=== PATIENT | female | born 1955 | race Hispanic/Latino ===

== ENCOUNTER 2018-07-27 12:43 | Inpatient (IN) | payer BC ==
[2018-07-27 12:51] VITALS: BMI 21.7
--- NOTE | 2018-07-27 12:59 | C.PDOC ---
History Of Present Illness 62 y/o female brought to ED by EMS for ECG changes at PMD office. Patient was at PMD office for routine vitamin B12 shot and was noted to be tachycardic prompting ECG to be done and showed wide complex tachycardia. Patient received P rocainamine en route and was given full dose of aspirin at PMD office. At ED patient denies chest pain, palpitations, sob, dizziness or any other complaints at this time. Chief Complaint (Nursing): Chest Pain History Per: Patient, EMS History/Exam Limitations: no limitations Onset/Duration Of Symptoms: Hrs Current Symptoms Are (Timing): Still Present Past Medical History Reviewed: Historical Data, Nursing Documentation, Vital Signs - Medical History PMH: Anemia Surgical History: No Surg Hx Family History: States: No Known Family Hx - Social History Hx Alcohol Use: Yes Hx Substance Use: No Review Of Systems Except As Marked, All Systems Reviewed And Found Negative. Cardiovascular: Negative for: Chest Pain, Palpitations Respiratory: Negative for: Cough, Shortness of Breath Physical Exam - Physical Exam Additional Physical Exam Comments: Constitutional: No acute distress. Head: Normocephalic. Atraumatic. Eyes: PERRL. ENT: Moist mucous membranes. Neck: Supple. Cardiovascular: Radial pulse 2+ bilaterally. Tachycardic Chest: No tenderness. Respiratory: Clear to auscultation bilaterally. GI: Soft. Nontender. Nondistended. Back: No CVA tenderness. Musculoskeletal: No tenderness or swelling of extremities. Skin: No rash. Neurologic: Alert, no focal deficit. ED Course And Treatment - Laboratory Results Result Diagrams: 07/27/18 13:01 07/27/18 13:01 ECG: Interpreted By Me, Viewed By Me ECG Rhythm: Atrial Fibrillation Interpretation Of ECG: Rapid ventricular rate, LBBB, No concordance st elevations. O2 Sat by Pulse Oximetry: 100 (RA) Critical Care Time - Critical Care Note Total Time (in mins): 45 Comments: Patient required my immediate attention for critical condition, frequent reassessments, and multiple specialist consultations. Documented critical care: time excludes all time spent performing seperately billable procedures. Medical Decision Making Medical Decision Making: Plan: Blood work, CXR, IV fluids, Cardizem ordered. Progress: At bedside patient noted to have 160 heart rate on monitor, 20mg of Cardizem IVP administered with response to 120s Consulted cardiology Dr. Sultana who recommends amiodarone bolus and drip and heparin bolus and drip. ICU Dr. Lisa accepts patient to unit. Dr. Wheeler accepts patient to his service. At time of admission, HR 130. Patient continues to be symptom free. CXR IMPRESSION: No active disease. Disposition - Disposition Disposition: HOSPITALIZED Disposition Time: 14:18 Condition: CRITICAL Forms: [facility] (Vietnamese) - Clinical Impression Clinical Impression: Wide-complex tachycardia - Scribe Statement The provider has reviewed the documentation as recorded by the Kalaniibbg Ortega All medical record entries made by the Dallin were at my direction and personally dictated by me. I have reviewed the chart and agree that the record accurately reflects my personal performance of the history, physical exam, medical decision making, and the department course for this patient. I have also personally directed, reviewed, and agree with the discharge instructions and disposition.
[2018-07-27 13:09] LABS: BASO % 0.7 % (0.0-2.0); EOS # 0.1 K/uL (0.0-0.7); EOS % 1.8 % (0.0-4.0); LYMPH # 2.5 K/uL (1.0-4.3); LYMPH % 42.5 % (20.0-40.0); MEAN CELL VOLUME 92.9 fL (81.0-99.0); MEAN CORPUSCULAR HEMOGLOBIN 31.6 pg (27.0-31.0); MEAN CORPUSCULAR HGB CONC 34.1 g/dL (33.0-37.0); MEAN PLATELET VOLUME 8.4 fL (7.2-11.7); MONO # 0.8 K/uL (0.0-0.8); NEUT # 2.4 K/uL (1.8-7.0); NRBC % 0.1 % (0.0-2.0); RBC 4.44 Mil/uL (3.80-5.20); RED CELL DISTRIBUTION WIDTH 15.1 % (11.5-14.5); WHITE BLOOD COUNT 5.9 K/uL (4.8-10.8)
[2018-07-27 13:23] LABS: INR 1.5; PROTHROMBIN TIME 16.3 SECONDS (9.7-12.2)
[2018-07-27] MEDS ORDERED: Heparin25000 units/250ml 1/2NS 25,000 UNITS/250 ML BAG IV ONE (13:23)
[2018-07-27 13:26] LABS: ALB/GLOB RATIO 1.1 (1.0-2.1); ALBUMIN 4.3 g/dL (3.5-5.0); ALT/SGPT 38 U/L (9-52); AST/SGOT 68 U/L (14-36); BLOOD UREA NITROGEN 10 mg/dL (7-17); CALCIUM 9.4 mg/dl (8.6-10.4); GFR NON-AFRICAN AMERICAN > 60
[2018-07-27 13:31] LABS: B-TYPE NATRIURETIC PEPTIDE 305 pg/mL (0-900); CK-MB 3.72 ng/mL (0.0-3.38)
--- NOTE | 2018-07-27 13:34 | RAD ---
Date of service: 07/27/2018 HISTORY: rapid afib with new LBBB COMPARISON: No prior. FINDINGS: LUNGS: No active pulmonary disease. PLEURA: No significant pleural effusion identified, no pneumothorax apparent. CARDIOVASCULAR: No atherosclerotic calcification present Normal. OSSEOUS STRUCTURES: No significant abnormalities. VISUALIZED UPPER ABDOMEN: Normal. OTHER FINDINGS: None. IMPRESSION: No active disease.
--- NOTE | 2018-07-27 14:44 | CP.PCM.CON ---
<DanetteAngel cardona - Last Filed: 07/27/18 15:33> History of Present Illness - History of Present Illness History of Present Illness: PGY-1 ICU Consult note for Dr. Lisa Patient is a 62 year old female with a past medical history of HTN brought to ED by EMS for ECG changes at PMD office. Patient was at PMD office for routine vitamin B12 shot and was noted to be tachycardic. EKG showed wide complex tachycardia. Patient admitted to the ICU for observation and treatment for ventricular tachycardia. Patient denies headaches, dizziness, changes in vision, changes in hearing, fevers, chills, chest pain, palpitations, shortness of breath, abdominal pain, nausea, vomiting, diarrhea, urinary symptoms, or any other complaints. In ED, started patient on Amiodarone drip. PMD: Dr. Wheeler PMHx: HTN, osteoporosis PSHx: Hysterectomy, Lung mass biopsy (benign results) Social Hx: Denies tobacco, alcohol, or drug use. Works in [employer]. Family Hx: Father had heart disease and of CVA in his 50's. Mother had a thyroid tumor Allergies: NKDA Medications: Enalapril 20mg QD, Ibandronate Review of Systems - Constitutional Constitutional: absent: Anorexia, Chills, Fatigue, Fever, Headache, Weakness - EENT Eyes: absent: Change in Vision Ears: absent: Decreased Hearing, Abnormal Hearing - Cardiovascular Cardiovascular: absent: Chest Pain, Chest Pain at Rest, Chest Pain with Activity, Diaphoresis, Dyspnea, Dyspnea on Exertion, Irregular Heart Rhythm, Lightheadedness, Palpitations, Rapid Heart Rate, Slow Heart Rate, Syncope - Respiratory Respiratory: absent: Cough, Dyspnea, Hemoptysis, Dyspnea on Exertion - Gastrointestinal Gastrointestinal: absent: Abdominal Pain, Change in Bowel Habits, Change in Stool Character, Coffee Ground Emesis, Constipation, Diarrhea - Genitourinary Genitourinary: absent: Difficulty Urinating, Dysuria, Hematuria - Musculoskeletal Musculoskeletal: absent: Arthralgias, Joint Swelling - Neurological Neurological: absent: Abnormal Hearing, Confusion, Dizziness, Numbness, Headaches, Syncope - Psychiatric Psychiatric: absent: Behavioral Changes, Confusion - Endocrine Endocrine: absent: Change in Body Appearance, Excessive Sweating, Palpitations, Polyuria Past Patient History - Past Social History Smoking Status: Never Smoked - CARDIAC Hx Hypertension: Yes - HEMATOLOGICAL/ONCOLOGICAL Hx Anemia: Yes - PSYCHIATRIC Hx Substance Use: No Meds Allergies/Adverse Reactions: Allergies Allergy/AdvReac Type Severity Reaction Status Date / Time No Known Allergies Allergy Verified 07/27/18 12:46 - Medications Medications: Current Medications Diltiazem HCl 125 mg/ Sodium (Chloride) 125 mls @ 5 mls/hr IV .Q24H [place]; Protocol Last Admin: 07/27/18 13:44 Dose: Not Given Amiodarone HCl 900 mg/ (Dextrose) 500 mls @ 33.33 mls/hr IV .Q15H1M ONE; Protocol Stop: 07/28/18 04:22 Last Admin: 07/27/18 14:18 Dose: 33.33 mls/hr Amiodarone HCl 900 mg/ (Dextrose) 500 mls @ 16.67 mls/hr IV .Q24H ONE; Protocol Stop: 07/28/18 13:22 Heparin Sodium/Sodium Chloride (Heparin 68760 Units/250ml 1/2 Normal Saline) 25,000 units in 250 mls @ 7.348 mls/hr IV .Q24H ONE; Protocol Stop: 07/28/18 13:22 Last Admin: 07/27/18 14:30 Dose: 7.348 mls/hr Physical Exam - Constitutional Appears: Well, Non-toxic, No Acute Distress - Head Exam Head Exam: ATRAUMATIC, NORMOCEPHALIC - Eye Exam Eye Exam: EOMI, Normal appearance - ENT Exam ENT Exam: Mucous Membranes Moist - Neck Exam Neck exam: Positive for: Normal Inspection - Respiratory Exam Respiratory Exam: Clear to Auscultation Bilateral, NORMAL BREATHING PATTERN. absent: Rales, Rhonchi, Wheezes, Respiratory Distress - Cardiovascular Exam Cardiovascular Exam: Tachycardia, +S1, +S2. absent: Gallop, Rubs, Systolic Murmur - GI/Abdominal Exam GI & Abdominal Exam: Normal Bowel Sounds, Soft. absent: Tenderness - Extremities Exam Extremities exam: Positive for: normal inspection - Neurological Exam Neurological exam: Alert, CN II-XII Intact, Oriented x3 - Psychiatric Exam Psychiatric exam: Normal Affect, Normal Mood - Skin Skin Exam: Dry, Intact, Normal Color, Warm Results - Vital Signs Recent Vital Signs: Last Vital Signs Temp Pulse 138 H 07/27/18 14:18 Resp 16 07/27/18 14:18 BP 111/63 07/27/18 14:18 Pulse Ox 100 07/27/18 14:24 - Labs Result Diagrams: 07/27/18 13:01 07/27/18 13:01 Labs: Laboratory Results - last 24 hr 07/27/18 07/27/18 07/27/18 13:01 13:01 13:01 WBC 5.9 RBC 4.44 Hgb 14.0 Hct 41.2 MCV 92.9 MCH 31.6 H MCHC 34.1 RDW 15.1 H Plt Count 175 MPV 8.4 Neut % (Auto) 41.0 L Lymph % (Auto) 42.5 H [place] % (Auto) 14.0 H Eos % (Auto) 1.8 Baso % (Auto) 0.7 Neut # (Auto) 2.4 Lymph # (Auto) 2.5 [place] # (Auto) 0.8 Eos # (Auto) 0.1 Baso # (Auto) 0.0 PT 16.3 H INR 1.5 APTT 36 H Sodium 137 Potassium 3.3 L Chloride 102 Carbon Dioxide 22 Anion Gap 17 BUN 10 Creatinine 0.6 L Est GFR ( Amer) > 60 Est GFR (Non-Af Amer) > 60 Random Glucose 106 H Calcium 9.4 Total Bilirubin 2.1 H AST 68 H ALT 38 Alkaline Phosphatase 132 H Total Creatine Kinase 140 H CK-MB (Mass) 3.72 H Troponin I < 0.0120 NT-Pro-B Natriuret Pep 305 Total Protein 8.3 Albumin 4.3 Globulin 4.0 H Albumin/Globulin Ratio 1.1 TSH 3rd Generation 0.87 Assessment & Plan - Assessment and Plan (Free Text) Assessment: Patient is a 62 year old female with past medical history of HTN admitted to the ICU for the management and treatment of ventricular tachycardia. Plan: Neuro: - Patient is AAO X 3 Cardiovascular: Ventricular tachycardia - EKG: Wide QRS tachycardia with premature supraventricular complexes with rate of 183. Left axis deviation. LBBB. - Cardiology consulted, Dr. Sultana - Troponin: < 0.01 - Repeat Troponins: f/u - Amiodarone drip - Cardizem drip - 1 dose of Heparin given in ED - Echo: f/u - TSH: 0.87 Respiratory: - No acute issues GI: Transaminitis - ALT/AST: 38/68 - Continue to monitor Renal Hypokalemia - Potassium: 3.3 - Potassium chloride given - Continue to monitor Heme: - No acute issues ID: - No acute issues Prophylaxis: - SCD's - Lovenox 40mg SC QD Case discussed with Dr. Sloan Mendez, PGY-1 <Ryan Lisa - Last Filed: 07/27/18 18:41> Meds - Medications Medications: Current Medications Diltiazem HCl 125 mg/ Sodium (Chloride) 125 mls @ 5 mls/hr IV .Q24H [place]; Protocol Last Admin: 07/27/18 13:44 Dose: Not Given Amiodarone HCl 900 mg/ (Dextrose) 500 mls @ 33.33 mls/hr IV .Q15H1M ONE; Protocol Stop: 07/28/18 04:22 Last Admin: 07/27/18 14:18 Dose: 33.33 mls/hr Amiodarone HCl 900 mg/ (Dextrose) 500 mls @ 16.67 mls/hr IV .Q24H ONE; Protocol Stop: 07/28/18 13:22 Heparin Sodium/Sodium Chloride (Heparin 54218 Units/250ml 1/2 Normal Saline) 25,000 units in 250 mls @ 7.348 mls/hr IV .Q24H ONE; Protocol Stop: 07/28/18 13:22 Last Admin: 07/27/18 14:30 Dose: 7.348 mls/hr Magnesium Sulfate/Dextrose (Magnesium Sulfate 1 Gm/100 Ml D5w) 1 gm in 100 mls @ 200 mls/hr IVPB Q30M [place] Stop: 07/27/18 19:59 Last Admin: 07/27/18 18:25 Dose: 200 mls/hr Results - Vital Signs Recent Vital Signs: Last Vital Signs Temp Pulse 135 H 07/27/18 15:16 Resp 14 07/27/18 15:02 BP 103/75 07/27/18 15:02 Pulse Ox 100 07/27/18 15:02 - Labs Result Diagrams: 07/27/18 13:01 07/27/18 13:01 Labs: Laboratory Results - last 24 hr 07/27/18 07/27/18 07/27/18 13:01 13:01 13:01 WBC 5.9 RBC 4.44 Hgb 14.0 Hct 41.2 MCV 92.9 MCH 31.6 H MCHC 34.1 RDW 15.1 H Plt Count 175 MPV 8.4 Neut % (Auto) 41.0 L Lymph % (Auto) 42.5 H [place] % (Auto) 14.0 H Eos % (Auto) 1.8 Baso % (Auto) 0.7 Neut # (Auto) 2.4 Lymph # (Auto) 2.5 [place] # (Auto) 0.8 Eos # (Auto) 0.1 Baso # (Auto) 0.0 PT 16.3 H INR 1.5 APTT 36 H Sodium 137 Potassium 3.3 L Chloride 102 Carbon Dioxide 22 Anion Gap 17 BUN 10 Creatinine 0.6 L Est GFR ( Amer) > 60 Est GFR (Non-Af Amer) > 60 Random Glucose 106 H Calcium 9.4 Phosphorus 3.4 Magnesium 1.3 L Total Bilirubin 2.1 H AST 68 H ALT 38 Alkaline Phosphatase 132 H Total Creatine Kinase 140 H CK-MB (Mass) 3.72 H Troponin I < 0.0120 NT-Pro-B Natriuret Pep 305 Total Protein 8.3 Albumin 4.3 Globulin 4.0 H Albumin/Globulin Ratio 1.1 TSH 3rd Generation 0.87 Urine Color Urine Clarity Urine pH Ur Specific [place] Urine Protein Urine Glucose (UA) Urine Ketones Urine Blood Urine Nitrate Urine Bilirubin Urine Urobilinogen Ur Leukocyte Esterase Urine WBC (Auto) Urine RBC (Auto) Ur Squamous Epith Cells 07/27/18 17:02 WBC RBC Hgb Hct MCV MCH MCHC RDW Plt Count MPV Neut % (Auto) Lymph % (Auto) [place] % (Auto) Eos % (Auto) Baso % (Auto) Neut # (Auto) Lymph # (Auto) [place] # (Auto) Eos # (Auto) Baso # (Auto) PT INR APTT Sodium Potassium Chloride Carbon Dioxide Anion Gap BUN Creatinine Est GFR ( Amer) Est GFR (Non-Af Amer) Random Glucose Calcium Phosphorus Magnesium Total Bilirubin AST ALT Alkaline Phosphatase Total Creatine Kinase CK-MB (Mass) Troponin I NT-Pro-B Natriuret Pep Total Protein Albumin Globulin Albumin/Globulin Ratio TSH 3rd Generation Urine Color Yellow Urine Clarity Clear Urine pH 5.0 Ur Specific [place] 1.006 Urine Protein Negative Urine Glucose (UA) Normal Urine Ketones Negative Urine Blood 1+ H Urine Nitrate Negative Urine Bilirubin Negative Urine Urobilinogen Normal Ur Leukocyte Esterase Neg Urine WBC (Auto) 1 Urine RBC (Auto) 3 Ur Squamous Epith Cells < 1 Attending/Attestation - Attestation I have personally seen and examined this patient.: Yes I have fully participated in the care of the patient.: Yes I have reviewed all pertinent clinical information: Yes Notes (Text): 07/27/18 18:40 patient seen and examinedin. 62-year-old female admitted for right complex tachycardia and started on amiodarone drip ICU observation Echocardiogram Cardiology evaluation Thyroid function tests
[2018-07-27] MEDS ORDERED: Potassium Chloride 10 mEq ER Tab PO ONE (16:00)
[2018-07-27 17:32] LABS: SQUAMOUS EPITHIAL < 1 /hpf (0-5); URINE BILIRUBIN NEGATIVE (NEGATIVE); URINE BLOOD 1+ (NEGATIVE); URINE CLARITY Clear (Clear); URINE COLOR Yellow (YELLOW); URINE GLUCOSE (UA) NORMAL (Normal); URINE LEUKOCYTE ESTERASE NEG Leu/uL (Negative); URINE PROTEIN NEGATIVE (NEGATIVE); URINE UROBILINOGEN NORMAL mg/dL (0.2-1.0)
[2018-07-27] MEDS ORDERED: Magnesium Oxide 400 mg Tab UD PO SCH (18:00)
[2018-07-27] MEDS: Magnesium Sulfate 1 gm in D5W 1 GM/100 ML BAG IVPB SCH ×4 (18:08→20:10)
[2018-07-27 21:22] LABS: INR 1.5; PROTHROMBIN TIME 16.7 SECONDS (9.7-12.2)
[2018-07-28 05:34] LABS: BASO % 0.5 % (0.0-2.0); EOS # 0.1 K/uL (0.0-0.7); EOS % 1.8 % (0.0-4.0); HEMOGLOBIN 13.3 g/dL (11.0-16.0); LYMPH # 1.7 K/uL (1.0-4.3); LYMPH % 32.4 % (20.0-40.0); MEAN CELL VOLUME 93.6 fL (81.0-99.0); MEAN CORPUSCULAR HEMOGLOBIN 31.2 pg (27.0-31.0); MEAN CORPUSCULAR HGB CONC 33.4 g/dL (33.0-37.0); MEAN PLATELET VOLUME 8.2 fL (7.2-11.7); MONO # 0.8 K/uL (0.0-0.8); NEUT # 2.6 K/uL (1.8-7.0); NEUT % 50.3 % (50.0-75.0); RBC 4.26 Mil/uL (3.80-5.20); RED CELL DISTRIBUTION WIDTH 15.4 % (11.5-14.5); WHITE BLOOD COUNT 5.1 K/uL (4.8-10.8)
[2018-07-28 06:47] LABS: ALBUMIN 3.7 g/dL (3.5-5.0); ALT/SGPT 30 U/L (9-52); AST/SGOT 61 U/L (14-36); BLOOD UREA NITROGEN 9 mg/dL (7-17); GFR NON-AFRICAN AMERICAN > 60
--- NOTE | 2018-07-28 07:51 | CP.CCUPN ---
<Angel Mendez - Last Filed: 07/28/18 10:25> CCU Subjective - Physician Review Subjective (Free Text): 07/28/18 07:50 Patient seen and examined at bedside. Critical Care Time Spent (in minutes): 35 CCU Objective - Vital Signs / Intake & Output Vital Signs (Last 4 hours): Vital Signs Temp Pulse Resp BP Pulse Ox 07/28/18 06:00 92 H 16 100 07/28/18 05:47 78 19 121/81 99 07/28/18 05:00 92 H 19 100 07/28/18 04:47 96 H 20 122/80 100 07/28/18 04:00 97.5 F L 107 H 16 98 Intake and Output (Last 8hrs): Intake & Output 07/27/18 07/28/18 07/28/18 22:59 06:59 14:59 Intake Total 894.0 179.2 Output Total 680 900 Balance 214.0 -720.8 Weight 63.412 kg 62.959 kg Intake: Intake, IV Amount 644.0 179.2 Left Forearm 400 0 Left Hand 44.3 46.4 Right Forearm 199.7 132.8 Oral 250 Output: Urine 680 900 Urine, Voided 680 900 Stool 0 Other: Voiding Method Bedpan - Physical Exam Other physical findings (Free Text): - Constitutional Appears: Well, Non-toxic, No Acute Distress - Head Exam Head Exam: ATRAUMATIC, NORMOCEPHALIC - Eye Exam Eye Exam: EOMI, Normal appearance - ENT Exam ENT Exam: Mucous Membranes Moist - Neck Exam Neck exam: Positive for: Normal Inspection - Respiratory Exam Respiratory Exam: Clear to Auscultation Bilateral, NORMAL BREATHING PATTERN. absent: Rales, Rhonchi, Wheezes, Respiratory Distress - Cardiovascular Exam Cardiovascular Exam: Tachycardia, +S1, +S2. absent: Gallop, Rubs, Systolic Murmur - GI/Abdominal Exam GI & Abdominal Exam: Normal Bowel Sounds, Soft. absent: Tenderness - Extremities Exam Extremities exam: Positive for: normal inspection - Neurological Exam Neurological exam: Alert, CN II-XII Intact, Oriented x3 - Psychiatric Exam Psychiatric exam: Normal Affect, Normal Mood - Skin Skin Exam: Dry, Intact, Normal Color, Warm - Medications Active Medications: Active Medications Generic Name Dose Route Start Last Admin Trade Name Freq PRN Reason Stop Dose Admin Diltiazem HCl 125 mg/ Sodium 125 mls @ 5 mls/hr 07/27/18 13:00 07/27/18 13:44 Chloride IV Not Given .Q24H [facility] Protocol 5 MG/HR Amiodarone HCl 900 mg/ 500 mls @ 16.67 mls/hr 07/27/18 13:23 07/27/18 20:43 Dextrose IV 07/28/18 13:22 16.67 mls/hr .Q24H ONE Administration Protocol 0.5 MG/MIN Heparin Sodium/Sodium Chloride 25,000 units in 250 mls @ 7.348 mls/hr 07/27/18 13:23 07/27/18 14:30 Heparin 65575 Units/250ml 1/2 Normal Saline IV 07/28/18 13:22 7.348 mls/hr .Q24H ONE Administration Protocol 12 UNITS/KG/HR - Patient Studies Lab Studies: Lab Studies 07/28/18 07/28/18 07/28/18 Range/Units 06:15 05:24 05:24 WBC 5.1 (4.8-10.8) K/uL RBC 4.26 (3.80-5.20) Mil/uL Hgb 13.3 (11.0-16.0) g/dL Hct 39.9 (34.0-47.0) % MCV 93.6 (81.0-99.0) fL MCH 31.2 H (27.0-31.0) pg MCHC 33.4 (33.0-37.0) g/dL RDW 15.4 H (11.5-14.5) % Plt Count 145 (130-400) K/uL MPV 8.2 (7.2-11.7) fL Neut % (Auto) 50.3 (50.0-75.0) % Lymph % (Auto) 32.4 (20.0-40.0) % [place] % (Auto) 15.0 H (0.0-10.0) % Eos % (Auto) 1.8 (0.0-4.0) % Baso % (Auto) 0.5 (0.0-2.0) % Neut # (Auto) 2.6 (1.8-7.0) K/uL Lymph # (Auto) 1.7 (1.0-4.3) K/uL [place] # (Auto) 0.8 (0.0-0.8) K/uL Eos # (Auto) 0.1 (0.0-0.7) K/uL Baso # (Auto) 0.0 (0.0-0.2) K/uL PT (9.7-12.2) SECONDS INR APTT 61 H D (21-34) SECONDS Sodium 135 (132-148) mmol/L Potassium 3.8 (3.6-5.2) mmol/L Chloride 105 (98-107) mmol/L Carbon Dioxide 22 (22-30) mmol/L Anion Gap 12 (10-20) BUN 9 (7-17) mg/dL Creatinine 0.5 L (0.7-1.2) mg/dL Est GFR ( Amer) > 60 Est GFR (Non-Af Amer) > 60 Random Glucose 122 H (65-105) mg/dL Calcium 8.0 L (8.6-10.4) mg/dl Phosphorus 2.5 (2.5-4.5) mg/dL Magnesium 1.8 (1.6-2.3) mg/dL Total Bilirubin 2.0 H (0.2-1.3) mg/dL AST 61 H (14-36) U/L ALT 30 (9-52) U/L Alkaline Phosphatase 104 (38-126) U/L Total Creatine Kinase (30-135) U/L CK-MB (Mass) (0.0-3.38) ng/mL Troponin I 0.0280 (0.00-0.120) ng/mL NT-Pro-B Natriuret Pep (0-900) pg/mL Total Protein 7.4 (6.3-8.3) g/dL Albumin 3.7 (3.5-5.0) g/dL Globulin 3.8 (2.2-3.9) gm/dL Albumin/Globulin Ratio 1.0 (1.0-2.1) Free T4 (0.78-2.19) ng/dL TSH 3rd Generation (0.46-4.68) mIU/L Urine Color (YELLOW) Urine Clarity (Clear) Urine pH (5.0-8.0) Ur Specific [place] (1.003-1.030) Urine Protein (NEGATIVE) mg/dL Urine Glucose (UA) (Normal) mg/dL Urine Ketones (NEGATIVE) mg/dL Urine Blood (NEGATIVE) Urine Nitrate (NEGATIVE) Urine Bilirubin (NEGATIVE) Urine Urobilinogen (0.2-1.0) mg/dL Ur Leukocyte Esterase (Negative) Vargas/uL Urine WBC (Auto) (0-5) /hpf Urine RBC (Auto) (0-3) /hpf Ur Squamous Epith Cells (0-5) /hpf 07/27/18 07/27/18 07/27/18 Range/Units 20:52 20:52 20:52 WBC (4.8-10.8) K/uL RBC (3.80-5.20) Mil/uL Hgb (11.0-16.0) g/dL Hct (34.0-47.0) % MCV (81.0-99.0) fL MCH (27.0-31.0) pg MCHC (33.0-37.0) g/dL RDW (11.5-14.5) % Plt Count (130-400) K/uL MPV (7.2-11.7) fL Neut % (Auto) (50.0-75.0) % Lymph % (Auto) (20.0-40.0) % [place] % (Auto) (0.0-10.0) % Eos % (Auto) (0.0-4.0) % Baso % (Auto) (0.0-2.0) % Neut # (Auto) (1.8-7.0) K/uL Lymph # (Auto) (1.0-4.3) K/uL [place] # (Auto) (0.0-0.8) K/uL Eos # (Auto) (0.0-0.7) K/uL Baso # (Auto) (0.0-0.2) K/uL PT 16.7 H (9.7-12.2) SECONDS INR 1.5 APTT 125 H* D (21-34) SECONDS Sodium (132-148) mmol/L Potassium (3.6-5.2) mmol/L Chloride (98-107) mmol/L Carbon Dioxide (22-30) mmol/L Anion Gap (10-20) BUN (7-17) mg/dL Creatinine (0.7-1.2) mg/dL Est GFR ( Amer) Est GFR (Non-Af Amer) Random Glucose (65-105) mg/dL Calcium (8.6-10.4) mg/dl Phosphorus (2.5-4.5) mg/dL Magnesium (1.6-2.3) mg/dL Total Bilirubin (0.2-1.3) mg/dL AST (14-36) U/L ALT (9-52) U/L Alkaline Phosphatase (38-126) U/L Total Creatine Kinase (30-135) U/L CK-MB (Mass) (0.0-3.38) ng/mL Troponin I 0.0700 (0.00-0.120) ng/mL NT-Pro-B Natriuret Pep (0-900) pg/mL Total Protein (6.3-8.3) g/dL Albumin (3.5-5.0) g/dL Globulin (2.2-3.9) gm/dL Albumin/Globulin Ratio (1.0-2.1) Free T4 1.03 (0.78-2.19) ng/dL TSH 3rd Generation (0.46-4.68) mIU/L Urine Color (YELLOW) Urine Clarity (Clear) Urine pH (5.0-8.0) Ur Specific [place] (1.003-1.030) Urine Protein (NEGATIVE) mg/dL Urine Glucose (UA) (Normal) mg/dL Urine Ketones (NEGATIVE) mg/dL Urine Blood (NEGATIVE) Urine Nitrate (NEGATIVE) Urine Bilirubin (NEGATIVE) Urine Urobilinogen (0.2-1.0) mg/dL Ur Leukocyte Esterase (Negative) Vargas/uL Urine WBC (Auto) (0-5) /hpf Urine RBC (Auto) (0-3) /hpf Ur Squamous Epith Cells (0-5) /hpf 07/27/18 07/27/18 07/27/18 Range/Units 17:02 13:01 13:01 WBC (4.8-10.8) K/uL RBC (3.80-5.20) Mil/uL Hgb (11.0-16.0) g/dL Hct (34.0-47.0) % MCV (81.0-99.0) fL MCH (27.0-31.0) pg MCHC (33.0-37.0) g/dL RDW (11.5-14.5) % Plt Count (130-400) K/uL MPV (7.2-11.7) fL Neut % (Auto) (50.0-75.0) % Lymph % (Auto) (20.0-40.0) % [place] % (Auto) (0.0-10.0) % Eos % (Auto) (0.0-4.0) % Baso % (Auto) (0.0-2.0) % Neut # (Auto) (1.8-7.0) K/uL Lymph # (Auto) (1.0-4.3) K/uL [place] # (Auto) (0.0-0.8) K/uL Eos # (Auto) (0.0-0.7) K/uL Baso # (Auto) (0.0-0.2) K/uL PT 16.3 H (9.7-12.2) SECONDS INR 1.5 APTT 36 H (21-34) SECONDS Sodium 137 (132-148) mmol/L Potassium 3.3 L (3.6-5.2) mmol/L Chloride 102 (98-107) mmol/L Carbon Dioxide 22 (22-30) mmol/L Anion Gap 17 (10-20) BUN 10 (7-17) mg/dL Creatinine 0.6 L (0.7-1.2) mg/dL Est GFR ( Amer) > 60 Est GFR (Non-Af Amer) > 60 Random Glucose 106 H (65-105) mg/dL Calcium 9.4 (8.6-10.4) mg/dl Phosphorus 3.4 (2.5-4.5) mg/dL Magnesium 1.3 L (1.6-2.3) mg/dL Total Bilirubin 2.1 H (0.2-1.3) mg/dL AST 68 H (14-36) U/L ALT 38 (9-52) U/L Alkaline Phosphatase 132 H (38-126) U/L Total Creatine Kinase 140 H (30-135) U/L CK-MB (Mass) 3.72 H (0.0-3.38) ng/mL Troponin I < 0.0120 (0.00-0.120) ng/mL NT-Pro-B Natriuret Pep 305 (0-900) pg/mL Total Protein 8.3 (6.3-8.3) g/dL Albumin 4.3 (3.5-5.0) g/dL Globulin 4.0 H (2.2-3.9) gm/dL Albumin/Globulin Ratio 1.1 (1.0-2.1) Free T4 (0.78-2.19) ng/dL TSH 3rd Generation 0.87 (0.46-4.68) mIU/L Urine Color Yellow (YELLOW) Urine Clarity Clear (Clear) Urine pH 5.0 (5.0-8.0) Ur Specific [place] 1.006 (1.003-1.030) Urine Protein Negative (NEGATIVE) mg/dL Urine Glucose (UA) Normal (Normal) mg/dL Urine Ketones Negative (NEGATIVE) mg/dL Urine Blood 1+ H (NEGATIVE) Urine Nitrate Negative (NEGATIVE) Urine Bilirubin Negative (NEGATIVE) Urine Urobilinogen Normal (0.2-1.0) mg/dL Ur Leukocyte Esterase Neg (Negative) Vargas/uL Urine WBC (Auto) 1 (0-5) /hpf Urine RBC (Auto) 3 (0-3) /hpf Ur Squamous Epith Cells < 1 (0-5) /hpf 07/27/18 Range/Units 13:01 WBC 5.9 (4.8-10.8) K/uL RBC 4.44 (3.80-5.20) Mil/uL Hgb 14.0 (11.0-16.0) g/dL Hct 41.2 (34.0-47.0) % MCV 92.9 (81.0-99.0) fL MCH 31.6 H (27.0-31.0) pg MCHC 34.1 (33.0-37.0) g/dL RDW 15.1 H (11.5-14.5) % Plt Count 175 (130-400) K/uL MPV 8.4 (7.2-11.7) fL Neut % (Auto) 41.0 L (50.0-75.0) % Lymph % (Auto) 42.5 H (20.0-40.0) % [place] % (Auto) 14.0 H (0.0-10.0) % Eos % (Auto) 1.8 (0.0-4.0) % Baso % (Auto) 0.7 (0.0-2.0) % Neut # (Auto) 2.4 (1.8-7.0) K/uL Lymph # (Auto) 2.5 (1.0-4.3) K/uL [place] # (Auto) 0.8 (0.0-0.8) K/uL Eos # (Auto) 0.1 (0.0-0.7) K/uL Baso # (Auto) 0.0 (0.0-0.2) K/uL PT (9.7-12.2) SECONDS INR APTT (21-34) SECONDS Sodium (132-148) mmol/L Potassium (3.6-5.2) mmol/L Chloride (98-107) mmol/L Carbon Dioxide (22-30) mmol/L Anion Gap (10-20) BUN (7-17) mg/dL Creatinine (0.7-1.2) mg/dL Est GFR ( Amer) Est GFR (Non-Af Amer) Random Glucose (65-105) mg/dL Calcium (8.6-10.4) mg/dl Phosphorus (2.5-4.5) mg/dL Magnesium (1.6-2.3) mg/dL Total Bilirubin (0.2-1.3) mg/dL AST (14-36) U/L ALT (9-52) U/L Alkaline Phosphatase (38-126) U/L Total Creatine Kinase (30-135) U/L CK-MB (Mass) (0.0-3.38) ng/mL Troponin I (0.00-0.120) ng/mL NT-Pro-B Natriuret Pep (0-900) pg/mL Total Protein (6.3-8.3) g/dL Albumin (3.5-5.0) g/dL Globulin (2.2-3.9) gm/dL Albumin/Globulin Ratio (1.0-2.1) Free T4 (0.78-2.19) ng/dL TSH 3rd Generation (0.46-4.68) mIU/L Urine Color (YELLOW) Urine Clarity (Clear) Urine pH (5.0-8.0) Ur Specific [place] (1.003-1.030) Urine Protein (NEGATIVE) mg/dL Urine Glucose (UA) (Normal) mg/dL Urine Ketones (NEGATIVE) mg/dL Urine Blood (NEGATIVE) Urine Nitrate (NEGATIVE) Urine Bilirubin (NEGATIVE) Urine Urobilinogen (0.2-1.0) mg/dL Ur Leukocyte Esterase (Negative) Vargas/uL Urine WBC (Auto) (0-5) /hpf Urine RBC (Auto) (0-3) /hpf Ur Squamous Epith Cells (0-5) /hpf Laboratory Results - last 24 hr 07/27/18 07/27/18 07/27/18 13:01 13:01 13:01 WBC 5.9 RBC 4.44 Hgb 14.0 Hct 41.2 MCV 92.9 MCH 31.6 H MCHC 34.1 RDW 15.1 H Plt Count 175 MPV 8.4 Neut % (Auto) 41.0 L Lymph % (Auto) 42.5 H [place] % (Auto) 14.0 H Eos % (Auto) 1.8 Baso % (Auto) 0.7 Neut # (Auto) 2.4 Lymph # (Auto) 2.5 [place] # (Auto) 0.8 Eos # (Auto) 0.1 Baso # (Auto) 0.0 PT 16.3 H INR 1.5 APTT 36 H Sodium 137 Potassium 3.3 L Chloride 102 Carbon Dioxide 22 Anion Gap 17 BUN 10 Creatinine 0.6 L Est GFR ( Amer) > 60 Est GFR (Non-Af Amer) > 60 Random Glucose 106 H Calcium 9.4 Phosphorus 3.4 Magnesium 1.3 L Total Bilirubin 2.1 H AST 68 H ALT 38 Alkaline Phosphatase 132 H Total Creatine Kinase 140 H CK-MB (Mass) 3.72 H Troponin I < 0.0120 NT-Pro-B Natriuret Pep 305 Total Protein 8.3 Albumin 4.3 Globulin 4.0 H Albumin/Globulin Ratio 1.1 Free T4 TSH 3rd Generation 0.87 Urine Color Urine Clarity Urine pH Ur Specific [place] Urine Protein Urine Glucose (UA) Urine Ketones Urine Blood Urine Nitrate Urine Bilirubin Urine Urobilinogen Ur Leukocyte Esterase Urine WBC (Auto) Urine RBC (Auto) Ur Squamous Epith Cells 07/27/18 07/27/18 07/27/18 17:02 20:52 20:52 WBC RBC Hgb Hct MCV MCH MCHC RDW Plt Count MPV Neut % (Auto) Lymph % (Auto) [place] % (Auto) Eos % (Auto) Baso % (Auto) Neut # (Auto) Lymph # (Auto) [place] # (Auto) Eos # (Auto) Baso # (Auto) PT 16.7 H INR 1.5 APTT 125 H* D Sodium Potassium Chloride Carbon Dioxide Anion Gap BUN Creatinine Est GFR ( Amer) Est GFR (Non-Af Amer) Random Glucose Calcium Phosphorus Magnesium Total Bilirubin AST ALT Alkaline Phosphatase Total Creatine Kinase CK-MB (Mass) Troponin I 0.0700 NT-Pro-B Natriuret Pep Total Protein Albumin Globulin Albumin/Globulin Ratio Free T4 TSH 3rd Generation Urine Color Yellow Urine Clarity Clear Urine pH 5.0 Ur Specific [place] 1.006 Urine Protein Negative Urine Glucose (UA) Normal Urine Ketones Negative Urine Blood 1+ H Urine Nitrate Negative Urine Bilirubin Negative Urine Urobilinogen Normal Ur Leukocyte Esterase Neg Urine WBC (Auto) 1 Urine RBC (Auto) 3 Ur Squamous Epith Cells < 1 07/27/18 07/28/18 07/28/18 20:52 05:24 05:24 WBC 5.1 RBC 4.26 Hgb 13.3 Hct 39.9 MCV 93.6 MCH 31.2 H MCHC 33.4 RDW 15.4 H Plt Count 145 MPV 8.2 Neut % (Auto) 50.3 Lymph % (Auto) 32.4 [place] % (Auto) 15.0 H Eos % (Auto) 1.8 Baso % (Auto) 0.5 Neut # (Auto) 2.6 Lymph # (Auto) 1.7 [place] # (Auto) 0.8 Eos # (Auto) 0.1 Baso # (Auto) 0.0 PT INR APTT 61 H D Sodium Potassium Chloride Carbon Dioxide Anion Gap BUN Creatinine Est GFR ( Amer) Est GFR (Non-Af Amer) Random Glucose Calcium Phosphorus Magnesium Total Bilirubin AST ALT Alkaline Phosphatase Total Creatine Kinase CK-MB (Mass) Troponin I NT-Pro-B Natriuret Pep Total Protein Albumin Globulin Albumin/Globulin Ratio Free T4 1.03 TSH 3rd Generation Urine Color Urine Clarity Urine pH Ur Specific [place] Urine Protein Urine Glucose (UA) Urine Ketones Urine Blood Urine Nitrate Urine Bilirubin Urine Urobilinogen Ur Leukocyte Esterase Urine WBC (Auto) Urine RBC (Auto) Ur Squamous Epith Cells 07/28/18 06:15 WBC RBC Hgb Hct MCV MCH MCHC RDW Plt Count MPV Neut % (Auto) Lymph % (Auto) [place] % (Auto) Eos % (Auto) Baso % (Auto) Neut # (Auto) Lymph # (Auto) [place] # (Auto) Eos # (Auto) Baso # (Auto) PT INR APTT Sodium 135 Potassium 3.8 Chloride 105 Carbon Dioxide 22 Anion Gap 12 BUN 9 Creatinine 0.5 L Est GFR ( Amer) > 60 Est GFR (Non-Af Amer) > 60 Random Glucose 122 H Calcium 8.0 L Phosphorus 2.5 Magnesium 1.8 Total Bilirubin 2.0 H AST 61 H ALT 30 Alkaline Phosphatase 104 Total Creatine Kinase CK-MB (Mass) Troponin I 0.0280 NT-Pro-B Natriuret Pep Total Protein 7.4 Albumin 3.7 Globulin 3.8 Albumin/Globulin Ratio 1.0 Free T4 TSH 3rd Generation Urine Color Urine Clarity Urine pH Ur Specific [place] Urine Protein Urine Glucose (UA) Urine Ketones Urine Blood Urine Nitrate Urine Bilirubin Urine Urobilinogen Ur Leukocyte Esterase Urine WBC (Auto) Urine RBC (Auto) Ur Squamous Epith Cells EKG/Cardiology Studies: Cardiology / EKG Studies 07/27/18 12:45 EKG [ELECTROCARDIOGRAM] Stat Comment: Mode Of Transportation: BED Reason For Exam: CP 07/28/18 07:00 EKG [ELECTROCARDIOGRAM] Routine Comment: Mode Of Transportation: Reason For Exam: v tach Critical Care Progress Note - Nutrition Nutrition: Nutrition Category Date Time Status Heart Healthy Diet [DIET] Diets 07/27/18 Breakfast Active Assessment/Plan - Assessment and Plan (Free Text) Assessment: Patient is a 62 year old female with past medical history of HTN admitted to the ICU for the management and treatment of ventricular tachycardia. Plan: Neuro: - Patient is AAO X 3 Cardiovascular: Ventricular tachycardia - EKG (07/28): Atrial fibrillation, LBBB, Left axis deviation, rate: 121 - Cardiology consulted, Dr. Sultana - Troponin: < 0.01 X 3 - Amiodarone drip, will change to PO once drip is done - Lovenox 60mg SC BID - Echo: f/u - TSH: 0.87 Respiratory: - No acute issues GI: Transaminitis - ALT/AST: 30/61 - Continue to monitor Renal Hypokalemia - Resolved - Continue to monitor Heme: - No acute issues ID: - No acute issues Prophylaxis: - SCD's - Lovenox 60mg SC BID Case discussed with Dr. Sloan Mendez, PGY-1 <Ryan Lisa S - Last Filed: 07/28/18 17:44> CCU Objective - Vital Signs / Intake & Output Vital Signs (Last 4 hours): Vital Signs Temp Pulse Resp BP Pulse Ox 07/28/18 17:00 55 L 15 100 07/28/18 16:47 55 L 18 112/50 L 99 07/28/18 16:00 99 F 61 18 99 07/28/18 15:47 65 19 116/54 L 99 07/28/18 15:00 66 18 98 07/28/18 14:47 69 20 110/55 L 99 07/28/18 14:00 84 26 H 98 Intake and Output (Last 8hrs): Intake & Output 07/28/18 07/28/18 07/28/18 06:59 14:59 22:59 Intake Total 179.2 133.6 120 Output Total 900 Balance -720.8 133.6 120 Weight 138 lb 12.8 oz Intake: Intake, IV Amount 179.2 133.6 Left Forearm 0 Left Hand 46.4 17.4 Right Forearm 132.8 116.2 Oral 120 Output: Urine 900 Urine, Voided 900 - Medications Active Medications: Active Medications Generic Name Dose Route Start Last Admin Trade Name Freq PRN Reason Stop Dose Admin Amiodarone HCl 200 mg 07/28/18 14:00 07/28/18 13:29 Cordarone PO 200 mg TID [facility] Administration Enoxaparin Sodium 60 mg 07/28/18 10:00 07/28/18 11:02 Lovenox SC 60 mg BID [facility] Administration Diltiazem HCl 125 mg/ Sodium 125 mls @ 5 mls/hr 07/27/18 13:00 07/28/18 13:03 Chloride IV Not Given .Q24H [facility] Protocol 5 MG/HR - Patient Studies Lab Studies: Lab Studies 07/28/18 07/28/18 07/28/18 Range/Units 06:15 05:24 05:24 WBC 5.1 (4.8-10.8) K/uL RBC 4.26 (3.80-5.20) Mil/uL Hgb 13.3 (11.0-16.0) g/dL Hct 39.9 (34.0-47.0) % MCV 93.6 (81.0-99.0) fL MCH 31.2 H (27.0-31.0) pg MCHC 33.4 (33.0-37.0) g/dL RDW 15.4 H (11.5-14.5) % Plt Count 145 (130-400) K/uL MPV 8.2 (7.2-11.7) fL Neut % (Auto) 50.3 (50.0-75.0) % Lymph % (Auto) 32.4 (20.0-40.0) % [place] % (Auto) 15.0 H (0.0-10.0) % Eos % (Auto) 1.8 (0.0-4.0) % Baso % (Auto) 0.5 (0.0-2.0) % Neut # (Auto) 2.6 (1.8-7.0) K/uL Lymph # (Auto) 1.7 (1.0-4.3) K/uL [place] # (Auto) 0.8 (0.0-0.8) K/uL Eos # (Auto) 0.1 (0.0-0.7) K/uL Baso # (Auto) 0.0 (0.0-0.2) K/uL PT (9.7-12.2) SECONDS INR APTT 61 H D (21-34) SECONDS Sodium 135 (132-148) mmol/L Potassium 3.8 (3.6-5.2) mmol/L Chloride 105 (98-107) mmol/L Carbon Dioxide 22 (22-30) mmol/L Anion Gap 12 (10-20) BUN 9 (7-17) mg/dL Creatinine 0.5 L (0.7-1.2) mg/dL Est GFR ( Amer) > 60 Est GFR (Non-Af Amer) > 60 Random Glucose 122 H (65-105) mg/dL Calcium 8.0 L (8.6-10.4) mg/dl Phosphorus 2.5 (2.5-4.5) mg/dL Magnesium 1.8 (1.6-2.3) mg/dL Total Bilirubin 2.0 H (0.2-1.3) mg/dL AST 61 H (14-36) U/L ALT 30 (9-52) U/L Alkaline Phosphatase 104 (38-126) U/L Troponin I 0.0280 (0.00-0.120) ng/mL Total Protein 7.4 (6.3-8.3) g/dL Albumin 3.7 (3.5-5.0) g/dL Globulin 3.8 (2.2-3.9) gm/dL Albumin/Globulin Ratio 1.0 (1.0-2.1) Free T4 (0.78-2.19) ng/dL 07/27/18 07/27/18 07/27/18 Range/Units 20:52 20:52 20:52 WBC (4.8-10.8) K/uL RBC (3.80-5.20) Mil/uL Hgb (11.0-16.0) g/dL Hct (34.0-47.0) % MCV (81.0-99.0) fL MCH (27.0-31.0) pg MCHC (33.0-37.0) g/dL RDW (11.5-14.5) % Plt Count (130-400) K/uL MPV (7.2-11.7) fL Neut % (Auto) (50.0-75.0) % Lymph % (Auto) (20.0-40.0) % [place] % (Auto) (0.0-10.0) % Eos % (Auto) (0.0-4.0) % Baso % (Auto) (0.0-2.0) % Neut # (Auto) (1.8-7.0) K/uL Lymph # (Auto) (1.0-4.3) K/uL [place] # (Auto) (0.0-0.8) K/uL Eos # (Auto) (0.0-0.7) K/uL Baso # (Auto) (0.0-0.2) K/uL PT 16.7 H (9.7-12.2) SECONDS INR 1.5 APTT 125 H* D (21-34) SECONDS Sodium (132-148) mmol/L Potassium (3.6-5.2) mmol/L Chloride (98-107) mmol/L Carbon Dioxide (22-30) mmol/L Anion Gap (10-20) BUN (7-17) mg/dL Creatinine (0.7-1.2) mg/dL Est GFR ( Amer) Est GFR (Non-Af Amer) Random Glucose (65-105) mg/dL Calcium (8.6-10.4) mg/dl Phosphorus (2.5-4.5) mg/dL Magnesium (1.6-2.3) mg/dL Total Bilirubin (0.2-1.3) mg/dL AST (14-36) U/L ALT (9-52) U/L Alkaline Phosphatase (38-126) U/L Troponin I 0.0700 (0.00-0.120) ng/mL Total Protein (6.3-8.3) g/dL Albumin (3.5-5.0) g/dL Globulin (2.2-3.9) gm/dL Albumin/Globulin Ratio (1.0-2.1) Free T4 1.03 (0.78-2.19) ng/dL Laboratory Results - last 24 hr 07/27/18 07/27/18 07/27/18 20:52 20:52 20:52 WBC RBC Hgb Hct MCV MCH MCHC RDW Plt Count MPV Neut % (Auto) Lymph % (Auto) [place] % (Auto) Eos % (Auto) Baso % (Auto) Neut # (Auto) Lymph # (Auto) [place] # (Auto) Eos # (Auto) Baso # (Auto) PT 16.7 H INR 1.5 APTT 125 H* D Sodium Potassium Chloride Carbon Dioxide Anion Gap BUN Creatinine Est GFR ( Amer) Est GFR (Non-Af Amer) Random Glucose Calcium Phosphorus Magnesium Total Bilirubin AST ALT Alkaline Phosphatase Troponin I 0.0700 Total Protein Albumin Globulin Albumin/Globulin Ratio Free T4 1.03 07/28/18 07/28/18 07/28/18 05:24 05:24 06:15 WBC 5.1 RBC 4.26 Hgb 13.3 Hct 39.9 MCV 93.6 MCH 31.2 H MCHC 33.4 RDW 15.4 H Plt Count 145 MPV 8.2 Neut % (Auto) 50.3 Lymph % (Auto) 32.4 [place] % (Auto) 15.0 H Eos % (Auto) 1.8 Baso % (Auto) 0.5 Neut # (Auto) 2.6 Lymph # (Auto) 1.7 [place] # (Auto) 0.8 Eos # (Auto) 0.1 Baso # (Auto) 0.0 PT INR APTT 61 H D Sodium 135 Potassium 3.8 Chloride 105 Carbon Dioxide 22 Anion Gap 12 BUN 9 Creatinine 0.5 L Est GFR ( Amer) > 60 Est GFR (Non-Af Amer) > 60 Random Glucose 122 H Calcium 8.0 L Phosphorus 2.5 Magnesium 1.8 Total Bilirubin 2.0 H AST 61 H ALT 30 Alkaline Phosphatase 104 Troponin I 0.0280 Total Protein 7.4 Albumin 3.7 Globulin 3.8 Albumin/Globulin Ratio 1.0 Free T4 EKG/Cardiology Studies: Cardiology / EKG Studies 07/28/18 07:00 EKG [ELECTROCARDIOGRAM] Routine Comment: Mode Of Transportation: Reason For Exam: v tach 07/28/18 08:18 EKG [ELECTROCARDIOGRAM] Stat Comment: Mode Of Transportation: Reason For Exam: arrhythmia Critical Care Progress Note - Nutrition Nutrition: Nutrition Category Date Time Status Heart Healthy Diet [DIET] Diets 07/27/18 Breakfast Active Attending/Attestation - Attestation I have personally seen and examined this patient.: Yes I have fully participated in the care of the patient.: Yes I have reviewed all pertinent clinical information: Yes Notes (Text): 07/28/18 17:43 patient seen and examined in the intensive care unit. Patient is off IV amiodarone and started on by mouth Continue Lovenox Stable for transfer to floor
[2018-07-28] MEDS: Enoxaparin 60 mg Syringe SC SCH ×3 (11:02→21:20)
--- NOTE | 2018-07-28 11:44 | CARD ---
APPROVED REPORT Date of service: 07/27/2018 EKG Measurement Heart [id number] <Conclusion> Wide QRS tachycardia with premature supraventricular complexes and with occasional premature ventricular complexes,poss a,fib Left axis deviation Left bundle branch block Abnormal ECG
--- NOTE | 2018-07-28 15:01 | CP.PCM.HP ---
History of Present Illness - History of Present Illness History of Present Illness: 62 o/o lady presented on the day of admission in the PMD office for routine f/u. The physical examination reveled an irregular pulse with tachyarythmia and accelerated htn. The clinical impression of new onset of a. fib was confirmed w ith an EKG that reveled a. fib with rapid response at 170 bpm. The SBP was more than 170. She was brought to ER via EMS. and started on amiodarone and heparin iv. At present she looks comfortable and the HR is around 90. She presented with same electrolytes imbalance that where corrected. Will start on oral anti coagulant. When stable will dc home. Will follow cardiology consult. Present on Admission - Present on Admission Any Indicators Present on Admission: No Review of Systems - Constitutional Constitutional: As Per HPI - EENT Eyes: As Per HPI - Cardiovascular Cardiovascular: Irregular Heart Rhythm - Respiratory Respiratory: As Per HPI - Gastrointestinal Gastrointestinal: As Per HPI - Musculoskeletal Musculoskeletal: As Per HPI - Integumentary Integumentary: As Per HPI Past Patient History - Past Social History Smoking Status: Never Smoked - CARDIAC Hx Hypertension: Yes - PULMONARY Hx Respiratory Disorders: No - NEUROLOGICAL Hx Neurological Disorder: No - HEENT Hx HEENT Problems: No - RENAL Hx Chronic Kidney Disease: No - ENDOCRINE/METABOLIC Hx Endocrine Disorders: No - HEMATOLOGICAL/ONCOLOGICAL Hx Anemia: Yes - INTEGUMENTARY Hx Dermatological Problems: No - MUSCULOSKELETAL/RHEUMATOLOGICAL Hx Falls: No - GENITOURINARY/GYNECOLOGICAL Hx Genitourinary Disorders: No - PSYCHIATRIC Hx Psychophysiologic Disorder: No Hx Substance Use: No - SURGICAL HISTORY Other/Comment: total [id number]. lung surgery =due to small mtyvay=[id number] - ANESTHESIA Hx Anesthesia: Yes Hx Anesthesia Reactions: No Hx Malignant Hyperthermia: No Has any member of the family had a problem w/ anesthesia?: No Meds Allergies/Adverse Reactions: Allergies Allergy/AdvReac Type Severity Reaction Status Date / Time No Known Allergies Allergy Verified 07/27/18 12:46 Physical Exam - Constitutional Appears: Non-toxic - Head Exam Head Exam: ATRAUMATIC, NORMAL INSPECTION, NORMOCEPHALIC - Eye Exam Eye Exam: Normal appearance - ENT Exam ENT Exam: Mucous Membranes Moist - Neck Exam Neck exam: Positive for: Full Rom - Respiratory Exam Respiratory Exam: Clear to Auscultation Bilateral - Cardiovascular Exam Cardiovascular Exam: Tachycardia, REGULAR RHYTHM, +S1, +S2 - GI/Abdominal Exam GI & Abdominal Exam: Normal Bowel Sounds - Extremities Exam Extremities exam: Positive for: normal inspection - Neurological Exam Neurological exam: Alert, CN II-XII Intact, Normal Gait, Oriented x3 Results - Vital Signs Recent Vital Signs: Last Vital Signs Temp 98.5 F 07/28/18 12:00 Pulse 84 07/28/18 14:00 Resp 26 H 07/28/18 14:00 BP 123/65 07/28/18 12:47 Pulse Ox 98 07/28/18 14:00 - Labs Result Diagrams: 07/28/18 05:24 07/28/18 06:15 Labs: Laboratory Results - last 24 hr 07/27/18 07/27/18 07/27/18 13:01 17:02 20:52 WBC RBC Hgb Hct MCV MCH MCHC RDW Plt Count MPV Neut % (Auto) Lymph % (Auto) Bland % (Auto) Eos % (Auto) Baso % (Auto) Neut # (Auto) Lymph # (Auto) Bland # (Auto) Eos # (Auto) Baso # (Auto) PT 16.7 H INR 1.5 APTT 125 H* D Sodium 137 Potassium 3.3 L Chloride 102 Carbon Dioxide 22 Anion Gap 17 BUN 10 Creatinine 0.6 L Est GFR ( Amer) > 60 Est GFR (Non-Af Amer) > 60 Random Glucose 106 H Calcium 9.4 Phosphorus 3.4 Magnesium 1.3 L Total Bilirubin 2.1 H AST 68 H ALT 38 Alkaline Phosphatase 132 H Total Creatine Kinase 140 H CK-MB (Mass) 3.72 H Troponin I < 0.0120 NT-Pro-B Natriuret Pep 305 Total Protein 8.3 Albumin 4.3 Globulin 4.0 H Albumin/Globulin Ratio 1.1 Free T4 TSH 3rd Generation 0.87 Urine Color Yellow Urine Clarity Clear Urine pH 5.0 Ur Specific [place] 1.006 Urine Protein Negative Urine Glucose (UA) Normal Urine Ketones Negative Urine Blood 1+ H Urine Nitrate Negative Urine Bilirubin Negative Urine Urobilinogen Normal Ur Leukocyte Esterase Neg Urine WBC (Auto) 1 Urine RBC (Auto) 3 Ur Squamous Epith Cells < 1 07/27/18 07/27/18 07/28/18 20:52 20:52 05:24 WBC 5.1 RBC 4.26 Hgb 13.3 Hct 39.9 MCV 93.6 MCH 31.2 H MCHC 33.4 RDW 15.4 H Plt Count 145 MPV 8.2 Neut % (Auto) 50.3 Lymph % (Auto) 32.4 Bland % (Auto) 15.0 H Eos % (Auto) 1.8 Baso % (Auto) 0.5 Neut # (Auto) 2.6 Lymph # (Auto) 1.7 Bland # (Auto) 0.8 Eos # (Auto) 0.1 Baso # (Auto) 0.0 PT INR APTT Sodium Potassium Chloride Carbon Dioxide Anion Gap BUN Creatinine Est GFR ( Amer) Est GFR (Non-Af Amer) Random Glucose Calcium Phosphorus Magnesium Total Bilirubin AST ALT Alkaline Phosphatase Total Creatine Kinase CK-MB (Mass) Troponin I 0.0700 NT-Pro-B Natriuret Pep Total Protein Albumin Globulin Albumin/Globulin Ratio Free T4 1.03 TSH 3rd Generation Urine Color Urine Clarity Urine pH Ur Specific [place] Urine Protein Urine Glucose (UA) Urine Ketones Urine Blood Urine Nitrate Urine Bilirubin Urine Urobilinogen Ur Leukocyte Esterase Urine WBC (Auto) Urine RBC (Auto) Ur Squamous Epith Cells 07/28/18 07/28/18 05:24 06:15 WBC RBC Hgb Hct MCV MCH MCHC RDW Plt Count MPV Neut % (Auto) Lymph % (Auto) Bland % (Auto) Eos % (Auto) Baso % (Auto) Neut # (Auto) Lymph # (Auto) Bland # (Auto) Eos # (Auto) Baso # (Auto) PT INR APTT 61 H D Sodium 135 Potassium 3.8 Chloride 105 Carbon Dioxide 22 Anion Gap 12 BUN 9 Creatinine 0.5 L Est GFR ( Amer) > 60 Est GFR (Non-Af Amer) > 60 Random Glucose 122 H Calcium 8.0 L Phosphorus 2.5 Magnesium 1.8 Total Bilirubin 2.0 H AST 61 H ALT 30 Alkaline Phosphatase 104 Total Creatine Kinase CK-MB (Mass) Troponin I 0.0280 NT-Pro-B Natriuret Pep Total Protein 7.4 Albumin 3.7 Globulin 3.8 Albumin/Globulin Ratio 1.0 Free T4 TSH 3rd Generation Urine Color Urine Clarity Urine pH Ur Specific [place] Urine Protein Urine Glucose (UA) Urine Ketones Urine Blood Urine Nitrate Urine Bilirubin Urine Urobilinogen Ur Leukocyte Esterase Urine WBC (Auto) Urine RBC (Auto) Ur Squamous Epith Cells Assessment & Plan (1) Atrial fibrillation Status: Acute (2) Hypertensive cardiovascular disease Status: Acute (3) Wide-complex tachycardia Status: Acute - Assessment and Plan (Free Text) Plan: as above
[2018-07-28] MEDS ORDERED: Potassium Chloride 10 mEq ER Tab PO ONE (16:00)
--- NOTE | 2018-07-28 20:43 | CP.PCM.CON ---
History of Present Illness - History of Present Illness History of Present Illness: 62 F admitted with Rapid A fib and rate related LBBB Responded to amiadorone drip now on Amio 200mg po tid and Therapeutic Lovenox Trops x 3 normal ECHO: Normal EF and no valve issues TSH: Normal Plan: Stress test in am If normal I will d/c her home on and PO Metoprolol on Thursday If stress test abnormal will cath her on Thursday Dr. Judge will see the patient for me for tomorrow Past Patient History - Past Social History Smoking Status: Never Smoked - CARDIAC Hx Hypertension: Yes - PULMONARY Hx Respiratory Disorders: No - NEUROLOGICAL Hx Neurological Disorder: No - HEENT Hx HEENT Problems: No - RENAL Hx Chronic Kidney Disease: No - ENDOCRINE/METABOLIC Hx Endocrine Disorders: No - HEMATOLOGICAL/ONCOLOGICAL Hx Anemia: Yes - INTEGUMENTARY Hx Dermatological Problems: No - MUSCULOSKELETAL/RHEUMATOLOGICAL Hx Falls: No - GENITOURINARY/GYNECOLOGICAL Hx Genitourinary Disorders: No - PSYCHIATRIC Hx Psychophysiologic Disorder: No Hx Substance Use: No - SURGICAL HISTORY Other/Comment: total [id number]. lung surgery =due to small [id number]=[id number] - ANESTHESIA Hx Anesthesia: Yes Hx Anesthesia Reactions: No Hx Malignant Hyperthermia: No Has any member of the family had a problem w/ anesthesia?: No Meds Allergies/Adverse Reactions: Allergies Allergy/AdvReac Type Severity Reaction Status Date / Time No Known Allergies Allergy Verified 07/27/18 12:46 - Medications Medications: Current Medications Amiodarone HCl (Cordarone) 200 mg PO TID [facility] Last Admin: 07/28/18 18:12 Dose: 200 mg Enoxaparin Sodium (Lovenox) 60 mg SC Q12 [facility] Results - Vital Signs Recent Vital Signs: Last Vital Signs Temp 98.2 F 07/28/18 20:00 Pulse 73 07/28/18 20:00 Resp 11 L 07/28/18 20:00 BP 116/57 L 07/28/18 19:47 Pulse Ox 99 07/28/18 20:00 - Labs Result Diagrams: 07/28/18 05:24 07/28/18 06:15 Labs: Laboratory Results - last 24 hr 07/27/18 07/27/18 07/27/18 20:52 20:52 20:52 WBC RBC Hgb Hct MCV MCH MCHC RDW Plt Count MPV Neut % (Auto) Lymph % (Auto) [place] % (Auto) Eos % (Auto) Baso % (Auto) Neut # (Auto) Lymph # (Auto) [place] # (Auto) Eos # (Auto) Baso # (Auto) PT 16.7 H INR 1.5 APTT 125 H* D Sodium Potassium Chloride Carbon Dioxide Anion Gap BUN Creatinine Est GFR ( Amer) Est GFR (Non-Af Amer) Random Glucose Calcium Phosphorus Magnesium Total Bilirubin AST ALT Alkaline Phosphatase Troponin I 0.0700 Total Protein Albumin Globulin Albumin/Globulin Ratio Free T4 1.03 07/28/18 07/28/18 07/28/18 05:24 05:24 06:15 WBC 5.1 RBC 4.26 Hgb 13.3 Hct 39.9 MCV 93.6 MCH 31.2 H MCHC 33.4 RDW 15.4 H Plt Count 145 MPV 8.2 Neut % (Auto) 50.3 Lymph % (Auto) 32.4 [place] % (Auto) 15.0 H Eos % (Auto) 1.8 Baso % (Auto) 0.5 Neut # (Auto) 2.6 Lymph # (Auto) 1.7 [place] # (Auto) 0.8 Eos # (Auto) 0.1 Baso # (Auto) 0.0 PT INR APTT 61 H D Sodium 135 Potassium 3.8 Chloride 105 Carbon Dioxide 22 Anion Gap 12 BUN 9 Creatinine 0.5 L Est GFR ( Amer) > 60 Est GFR (Non-Af Amer) > 60 Random Glucose 122 H Calcium 8.0 L Phosphorus 2.5 Magnesium 1.8 Total Bilirubin 2.0 H AST 61 H ALT 30 Alkaline Phosphatase 104 Troponin I 0.0280 Total Protein 7.4 Albumin 3.7 Globulin 3.8 Albumin/Globulin Ratio 1.0 Free T4
[2018-07-29 05:30] LABS: BASO % 0.7 % (0.0-2.0); EOS # 0.2 K/uL (0.0-0.7); EOS % 3.5 % (0.0-4.0); HEMOGLOBIN 12.7 g/dL (11.0-16.0); LYMPH # 2.2 K/uL (1.0-4.3); LYMPH % 45.9 % (20.0-40.0); MEAN CELL VOLUME 93.3 fL (81.0-99.0); MEAN CORPUSCULAR HGB CONC 33.2 g/dL (33.0-37.0); MEAN PLATELET VOLUME 8.4 fL (7.2-11.7); MONO # 0.8 K/uL (0.0-0.8); MONO % 17.5 % (0.0-10.0); NEUT # 1.6 K/uL (1.8-7.0); NEUT % 32.4 % (50.0-75.0); NRBC % 0.2 % (0.0-2.0); RBC 4.09 Mil/uL (3.80-5.20); RED CELL DISTRIBUTION WIDTH 14.6 % (11.5-14.5); WHITE BLOOD COUNT 4.8 K/uL (4.8-10.8)
[2018-07-29 06:28] LABS: ALBUMIN 3.5 g/dL (3.5-5.0); ALT/SGPT 30 U/L (9-52); AST/SGOT 45 U/L (14-36); BLOOD UREA NITROGEN 11 mg/dL (7-17); CALCIUM 8.3 mg/dl (8.6-10.4); GFR NON-AFRICAN AMERICAN > 60
--- NOTE | 2018-07-29 07:30 | CP.CCUPN ---
<Angel Mendez - Last Filed: 07/29/18 14:10> CCU Subjective - Physician Review Subjective (Free Text): 07/28/18 07:50 Patient seen and examined at bedside. No acute events overnight. Patient denies chest pain, palpitations, SOB, or any other complaints. Patient stable for transfer to telemetry. Critical Care Time Spent (in minutes): 35 CCU Objective - Vital Signs / Intake & Output Vital Signs (Last 4 hours): Vital Signs Pulse Resp BP Pulse Ox 07/29/18 06:00 52 L 13 96 07/29/18 05:47 55 L 18 131/58 L 96 07/29/18 05:00 62 10 L 98 07/29/18 04:47 56 L 14 135/70 97 07/29/18 04:00 53 L 13 96 07/29/18 03:47 53 L 14 128/55 L 97 Intake and Output (Last 8hrs): Intake & Output 07/28/18 07/29/18 07/29/18 22:59 06:59 14:59 Intake Total 120 0 Output Total 700 350 Balance -580 -350 Intake: Oral 120 0 Output: Urine 200 350 Urine, Voided 200 350 Urine/Stool Mix 500 - Medications Active Medications: Active Medications Generic Name Dose Route Start Last Admin Trade Name Freq PRN Reason Stop Dose Admin Amiodarone HCl 200 mg 07/28/18 14:00 07/28/18 18:12 Cordarone PO 200 mg TID [facility] Administration Enoxaparin Sodium 60 mg 07/28/18 22:00 07/28/18 21:20 Lovenox SC 60 mg Q12 [facility] Administration - Patient Studies Lab Studies: Microbiology Studies 07/27/18 Unknown MRSA Culture (Admit) - Final Nose MRSA NOT DETECTED Lab Studies 07/29/18 07/29/18 Range/Units 05:06 05:06 WBC 4.8 (4.8-10.8) K/uL RBC 4.09 (3.80-5.20) Mil/uL Hgb 12.7 (11.0-16.0) g/dL Hct 38.2 (34.0-47.0) % MCV 93.3 (81.0-99.0) fL MCH 31.0 (27.0-31.0) pg MCHC 33.2 (33.0-37.0) g/dL RDW 14.6 H (11.5-14.5) % Plt Count 154 (130-400) K/uL MPV 8.4 (7.2-11.7) fL Neut % (Auto) 32.4 L (50.0-75.0) % Lymph % (Auto) 45.9 H (20.0-40.0) % Payne % (Auto) 17.5 H (0.0-10.0) % Eos % (Auto) 3.5 (0.0-4.0) % Baso % (Auto) 0.7 (0.0-2.0) % Neut # (Auto) 1.6 L (1.8-7.0) K/uL Lymph # (Auto) 2.2 (1.0-4.3) K/uL Payne # (Auto) 0.8 (0.0-0.8) K/uL Eos # (Auto) 0.2 (0.0-0.7) K/uL Baso # (Auto) 0.0 (0.0-0.2) K/uL Sodium 137 (132-148) mmol/L Potassium 3.7 (3.6-5.2) mmol/L Chloride 103 (98-107) mmol/L Carbon Dioxide 25 (22-30) mmol/L Anion Gap 14 (10-20) BUN 11 (7-17) mg/dL Creatinine 0.5 L (0.7-1.2) mg/dL Est GFR ( Amer) > 60 Est GFR (Non-Af Amer) > 60 Random Glucose 105 (65-105) mg/dL Calcium 8.3 L (8.6-10.4) mg/dl Phosphorus 3.2 (2.5-4.5) mg/dL Magnesium 1.7 (1.6-2.3) mg/dL Total Bilirubin 1.0 (0.2-1.3) mg/dL AST 45 H D (14-36) U/L ALT 30 (9-52) U/L Alkaline Phosphatase 104 (38-126) U/L Total Protein 7.1 (6.3-8.3) g/dL Albumin 3.5 (3.5-5.0) g/dL Globulin 3.6 (2.2-3.9) gm/dL Albumin/Globulin Ratio 1.0 (1.0-2.1) Laboratory Results - last 24 hr 07/29/18 07/29/18 05:06 05:06 WBC 4.8 RBC 4.09 Hgb 12.7 Hct 38.2 MCV 93.3 MCH 31.0 MCHC 33.2 RDW 14.6 H Plt Count 154 MPV 8.4 Neut % (Auto) 32.4 L Lymph % (Auto) 45.9 H Payne % (Auto) 17.5 H Eos % (Auto) 3.5 Baso % (Auto) 0.7 Neut # (Auto) 1.6 L Lymph # (Auto) 2.2 Payne # (Auto) 0.8 Eos # (Auto) 0.2 Baso # (Auto) 0.0 Sodium 137 Potassium 3.7 Chloride 103 Carbon Dioxide 25 Anion Gap 14 BUN 11 Creatinine 0.5 L Est GFR ( Amer) > 60 Est GFR (Non-Af Amer) > 60 Random Glucose 105 Calcium 8.3 L Phosphorus 3.2 Magnesium 1.7 Total Bilirubin 1.0 AST 45 H D ALT 30 Alkaline Phosphatase 104 Total Protein 7.1 Albumin 3.5 Globulin 3.6 Albumin/Globulin Ratio 1.0 EKG/Cardiology Studies: Cardiology / EKG Studies 07/28/18 07:00 EKG [ELECTROCARDIOGRAM] Routine Comment: Mode Of Transportation: Reason For Exam: v tach 07/28/18 08:18 EKG [ELECTROCARDIOGRAM] Stat Comment: Mode Of Transportation: Reason For Exam: arrhythmia Critical Care Progress Note - Nutrition Nutrition: Nutrition Category Date Time Status NPO Diet [DIET] Diets 07/29/18 Breakfast Active Assessment/Plan - Assessment and Plan (Free Text) Assessment: Patient is a 62 year old female with past medical history of HTN admitted to the ICU for the management and treatment of ventricular tachycardia. Plan: Neuro: - Patient is AAO X 3 Cardiovascular: Ventricular tachycardia - EKG (07/28): Atrial fibrillation, LBBB, Left axis deviation, rate: 121 - Cardiology consulted, Dr. Sultana - Troponin: < 0.01 X 3 - Amiodarone 200mg PO TID - Lovenox 60mg SC BID - Echo: LVEF 60-65%, mild LVH - Stress test: f/u - TSH: 0.87 Respiratory: - No acute issues GI: Transaminitis - ALT/AST: 30/45 - Continue to monitor Renal Hypokalemia - Resolved - Continue to monitor Heme: - No acute issues ID: - No acute issues Prophylaxis: - SCD's - Lovenox 60mg SC BID Case discussed with Dr. Ignacia Mendez, PGY-1 <Gayle Coats - Last Filed: 07/30/18 17:00> CCU Objective - Vital Signs / Intake & Output Vital Signs (Last 4 hours): Vital Signs Temp Pulse Resp BP Pulse Ox 07/30/18 16:00 98.1 F 60 20 146/63 99 - Medications Active Medications: Active Medications Generic Name Dose Route Start Last Admin Trade Name Freq PRN Reason Stop Dose Admin Apixaban 5 mg 07/30/18 10:00 07/30/18 09:39 Eliquis PO 5 mg BID [facility] Administration - Patient Studies Lab Studies: Lab Studies 07/30/18 07/30/18 Range/Units 07:08 07:08 WBC 4.5 L (4.8-10.8) K/uL RBC 4.07 (3.80-5.20) Mil/uL Hgb 13.0 (11.0-16.0) g/dL Hct 38.8 (34.0-47.0) % MCV 95.2 (81.0-99.0) fL MCH 32.0 H (27.0-31.0) pg MCHC 33.6 (33.0-37.0) g/dL RDW 15.1 H (11.5-14.5) % Plt Count 163 (130-400) K/uL MPV 8.3 (7.2-11.7) fL Neut % (Auto) 36.4 L (50.0-75.0) % Lymph % (Auto) 43.2 H (20.0-40.0) % Payne % (Auto) 16.0 H (0.0-10.0) % Eos % (Auto) 3.3 (0.0-4.0) % Baso % (Auto) 1.1 (0.0-2.0) % Neut # (Auto) 1.6 L (1.8-7.0) K/uL Lymph # (Auto) 1.9 (1.0-4.3) K/uL Payne # (Auto) 0.7 (0.0-0.8) K/uL Eos # (Auto) 0.1 (0.0-0.7) K/uL Baso # (Auto) 0.1 (0.0-0.2) K/uL Sodium 138 (132-148) mmol/L Potassium 4.1 (3.6-5.2) mmol/L Chloride 102 (98-107) mmol/L Carbon Dioxide 27 (22-30) mmol/L Anion Gap 13 (10-20) BUN 10 (7-17) mg/dL Creatinine 0.6 L (0.7-1.2) mg/dL Est GFR ( Amer) > 60 Est GFR (Non-Af Amer) > 60 Random Glucose 98 (65-105) mg/dL Calcium 8.8 (8.6-10.4) mg/dl Phosphorus 4.2 (2.5-4.5) mg/dL Magnesium 1.6 (1.6-2.3) mg/dL Total Bilirubin 0.8 (0.2-1.3) mg/dL AST 53 H (14-36) U/L ALT 28 (9-52) U/L Alkaline Phosphatase 86 (38-126) U/L Total Protein 7.3 (6.3-8.3) g/dL Albumin 3.6 (3.5-5.0) g/dL Globulin 3.7 (2.2-3.9) gm/dL Albumin/Globulin Ratio 1.0 (1.0-2.1) Laboratory Results - last 24 hr 07/30/18 07/30/18 07:08 07:08 WBC 4.5 L RBC 4.07 Hgb 13.0 Hct 38.8 MCV 95.2 MCH 32.0 H MCHC 33.6 RDW 15.1 H Plt Count 163 MPV 8.3 Neut % (Auto) 36.4 L Lymph % (Auto) 43.2 H Payne % (Auto) 16.0 H Eos % (Auto) 3.3 Baso % (Auto) 1.1 Neut # (Auto) 1.6 L Lymph # (Auto) 1.9 Payne # (Auto) 0.7 Eos # (Auto) 0.1 Baso # (Auto) 0.1 Sodium 138 Potassium 4.1 Chloride 102 Carbon Dioxide 27 Anion Gap 13 BUN 10 Creatinine 0.6 L Est GFR ( Amer) > 60 Est GFR (Non-Af Amer) > 60 Random Glucose 98 Calcium 8.8 Phosphorus 4.2 Magnesium 1.6 Total Bilirubin 0.8 AST 53 H ALT 28 Alkaline Phosphatase 86 Total Protein 7.3 Albumin 3.6 Globulin 3.7 Albumin/Globulin Ratio 1.0 EKG/Cardiology Studies: Cardiology / EKG Studies 07/30/18 07:30 EKG [ELECTROCARDIOGRAM] Routine Comment: Mode Of Transportation: PORTABLE Reason For Exam: A Fib Critical Care Progress Note - Nutrition Nutrition: Nutrition Category Date Time Status Heart Healthy Diet [DIET] Diets 07/29/18 Lunch Active Assessment/Plan - Assessment and Plan (Free Text) Plan: PAtient seen and examined at bedside. PAtient remains hemodynamically stable -continue heart medications as per cardiology - Date & Time Date: 07/29/18 Time: 19:00
[2018-07-29] MEDS ORDERED: Caffeine Citrated **INJ** 20 MG/ML IV ONE (08:18)
[2018-07-29] MEDS: Enoxaparin 60 mg Syringe SC SCH (10:04)
--- NOTE | 2018-07-29 10:10 | CARD ---
APPROVED REPORT Date of service: 07/28/2018 EXAM: Two-dimensional and M-mode echocardiogram with Doppler and color Doppler. Other Information Quality : GoodRhythm : Tachycardia INDICATION VTach RISK FACTORS Hypertension 2D DIMENSIONS IVSd1.0 (0.7-1.1cm)LVDd4.5 (3.9-5.9cm) PWd1.0 (0.7-1.1cm)LA Vdwifj72 (18-58mL) LVDs3.0 (2.5-4.0cm)FS (%) 32.5 % LVEF (%)61.0 (>50%)LVEF (Parker's)56.81 % M-Mode DIMENSIONS Left Atrium (MM)3.94 (2.5-4.0cm)IVSd1.25 (0.7-1.1cm) Aortic Root3.39 (2.2-3.7cm)LVDd4.33 (4.0-5.6cm) Aortic Cusp Exc.2.12 (1.5-2.0cm)PWd1.11 (0.7-1.1cm) FS (%) 35 %LVDs2.83 (2.0-3.8cm) LVEF (%)64 (>50%) Mitral Valve MV E Piiywlja94.6cm/sMV A Mxaoelvf54.5cm/sE/A ratio1.0 TDI Lateral E' Peak V7.19cm/sMedial E' Peak V7.22cm/sE/Lateral E'11.6 E/Medial E'11.6 Tricuspid Valve TR Peak Ybtvnyfv879zo/sTR Peak Gr.45csBkTDUD54xrPa LEFT VENTRICLE The left ventricle is normal size. There is mild concentric left ventricular hypertrophy. The Ejection Fraction is 60-65%. There is normal LV segmental wall motion. The left ventricular diastolic function is normal. AORTIC VALVE The aortic valve is normal in structure. No aortic regurgitation is present. MITRAL VALVE Mitral annular calcification is mild. There is no mitral valve regurgitation noted. TRICUSPID VALVE The tricuspid valve is normal in structure. There is mild tricuspid regurgitation. Right ventricular systolic pressure is estimated at 23 mmHg. There is no pulmonary hypertension. PULMONIC VALVE The pulmonary valve is normal in structure. GREAT VESSELS The aortic root is normal in size. The IVC is normal in size and collapses >50% with inspiration. PERICARDIAL EFFUSION There is no pericardial effusion. <Conclusion> The left ventricle is normal size. There is mild concentric left ventricular hypertrophy. The Ejection Fraction is 60-65%. The left ventricular diastolic function is normal. There is mild tricuspid regurgitation. Right ventricular systolic pressure is estimated at 23 mmHg. There is no pulmonary hypertension. The aortic root is normal in size. There is no pericardial effusion.
--- NOTE | 2018-07-29 15:30 | CP.PCM.PN ---
Subjective - Date & Time of Evaluation Date of Evaluation: 07/29/18 Time of Evaluation: 14:30 - Subjective Subjective: Patient improving Objective - Vital Signs/Intake and Output Vital Signs (last 24 hours): Temp Pulse Resp BP Pulse Ox 98.6 F 76 19 109/57 L 95 07/29/18 08:00 07/29/18 10:00 07/29/18 10:00 07/29/18 09:48 07/29/18 07:00 Intake and Output: 07/29/18 07/29/18 11:59 23:59 Intake Total 20 Output Total 350 Balance -330 - Medications Medications: Current Medications Amiodarone HCl (Cordarone) 200 mg PO TID [facility] Last Admin: 07/29/18 10:04 Dose: 200 mg Enoxaparin Sodium (Lovenox) 60 mg SC Q12 [facility] Last Admin: 07/29/18 10:04 Dose: 60 mg - Labs Labs: 07/29/18 05:06 07/29/18 05:06 PT 16.7 SECONDS (9.7-12.2) H 07/27/18 20:52 INR 1.5 07/27/18 20:52 APTT 61 SECONDS (21-34) H D 07/28/18 05:24 - Constitutional Appears: Non-toxic - Head Exam Head Exam: ATRAUMATIC, NORMAL INSPECTION, NORMOCEPHALIC - Eye Exam Eye Exam: Normal appearance - ENT Exam ENT Exam: Mucous Membranes Moist - Neck Exam Neck Exam: Full ROM - Respiratory Exam Respiratory Exam: Clear to Ausculation Bilateral - Cardiovascular Exam Cardiovascular Exam: REGULAR RHYTHM, +S1, +S2 - GI/Abdominal Exam GI & Abdominal Exam: Normal Bowel Sounds - Extremities Exam Extremities Exam: Full ROM - Neurological Exam Neurological Exam: Alert, Awake, Oriented x3 - Psychiatric Exam Psychiatric exam: Flat Affect - Skin Skin Exam: Normal Color Assessment and Plan (1) Atrial fibrillation Status: Acute (2) Hypertensive cardiovascular disease Status: Acute (3) Wide-complex tachycardia Status: Acute - Assessment and Plan (Free Text) Plan: will follow cardiology consult
--- NOTE | 2018-07-29 20:06 | CP.PCM.PN ---
Subjective - Date & Time of Evaluation Date of Evaluation: 07/29/18 Time of Evaluation: 20:05 - Subjective Subjective: Patient with normal stress test and normal EF HTN A Fib Eliquis 5mg po bid Lopressor 12.5 mg po bid Possible d/c tomorrow Objective - Vital Signs/Intake and Output Vital Signs (last 24 hours): Temp Pulse Resp BP Pulse Ox 98.1 F 64 12 113/61 95 07/29/18 18:00 07/29/18 18:00 07/29/18 15:47 07/29/18 15:47 07/29/18 07:00 Intake and Output: 07/29/18 07/30/18 18:59 06:59 Intake Total 220 Output Total 300 Balance -80 - Labs Labs: 07/29/18 05:06 07/29/18 05:06 PT 16.7 SECONDS (9.7-12.2) H 07/27/18 20:52 INR 1.5 07/27/18 20:52 APTT 61 SECONDS (21-34) H D 07/28/18 05:24
--- NOTE | 2018-07-29 22:09 | PN ---
DATE: 07/29/2018 FOLLOWUP COVERING FOR: Musa Sultana MD SUBJECTIVE: The patient is a 62-year-old female who is admitted for atrial fibrillation and rate related left bundle-branch block. The patient underwent myocardial perfusion nuclear scan, which was completed this morning. The patient denies chest pain at this time and no reported ventricular arrhythmia or hypotension. PHYSICAL EXAMINATION: VITAL SIGNS: Blood pressure 115/61, heart rate 73, respirations 12, and temperature 98.6. HEENT: Normocephalic. CHEST: Clear. CARDIAC: Heart sounds are irregular. EXTREMITIES: No edema. LABORATORY DATA: Today's hemoglobin and hematocrit 12.7 and 38.2, white count and platelet count are within normal limit. SMA-7: Sodium 137, potassium 3.7, chloride 103, CO2 of 25, glucose 105, BUN 11, and creatinine 0.5. One set of troponin is normal. indeterminate age. TSH level is within normal limit. Yesterday's PTT was 61. Echocardiographic study revealed mild concentric LVH with normal ejection fraction, normal diastolic function, no pulmonary hypertension. ASSESSMENT: 1. New-onset atrial fibrillation. 2. Left bundle-branch block. RECOMMENDATIONS: Continue amiodarone 200 mg once a day, therapeutic subcutaneous Lovenox 60 mg every 12 hours. Myoview of the Lexiscan scan images are suspicious of septal/anteroapical ischemia; however, the final report is still pending and findings will be discussed with Dr. Sultana. Lazaro Judge MD
--- NOTE | 2018-07-29 22:15 | CARD ---
APPROVED REPORT Date of service: 07/28/2018 EKG Measurement Heart [id number] <Conclusion> Atrial fibrillation Left axis deviation Left bundle branch block Abnormal ECG
[2018-07-30 07:16] LABS: BASO # 0.1 K/uL (0.0-0.2); BASO % 1.1 % (0.0-2.0); EOS # 0.1 K/uL (0.0-0.7); EOS % 3.3 % (0.0-4.0); LYMPH # 1.9 K/uL (1.0-4.3); LYMPH % 43.2 % (20.0-40.0); MEAN CELL VOLUME 95.2 fL (81.0-99.0); MEAN CORPUSCULAR HGB CONC 33.6 g/dL (33.0-37.0); MEAN PLATELET VOLUME 8.3 fL (7.2-11.7); MONO # 0.7 K/uL (0.0-0.8); NEUT # 1.6 K/uL (1.8-7.0); NEUT % 36.4 % (50.0-75.0); NRBC % 0.1 % (0.0-2.0); RBC 4.07 Mil/uL (3.80-5.20); RED CELL DISTRIBUTION WIDTH 15.1 % (11.5-14.5); WHITE BLOOD COUNT 4.5 K/uL (4.8-10.8)
[2018-07-30 07:37] LABS: ALBUMIN 3.6 g/dL (3.5-5.0); ALT/SGPT 28 U/L (9-52); AST/SGOT 53 U/L (14-36); BLOOD UREA NITROGEN 10 mg/dL (7-17); CALCIUM 8.8 mg/dl (8.6-10.4); GFR NON-AFRICAN AMERICAN > 60
--- NOTE | 2018-07-30 10:29 | CP.PCM.PN ---
<Herminia Brown - Last Filed: 07/30/18 10:26> Subjective - Date & Time of Evaluation Date of Evaluation: 07/30/18 Time of Evaluation: 10:29 - Subjective Subjective: Cardiology Follow Up Patient was seen and examined at bedside. Patient denied any chest pain, shortness of breath, dizziness, or light headedness. Objective - Vital Signs/Intake and Output Vital Signs (last 24 hours): Temp Pulse Resp BP Pulse Ox 97.9 F 56 L 20 129/63 96 07/30/18 08:25 07/30/18 08:25 07/30/18 08:25 07/30/18 08:25 07/30/18 08:25 Intake and Output: 07/30/18 07/30/18 06:59 18:59 Intake Total 120 Output Total 0 Balance 120 - Medications Medications: Current Medications Apixaban (Eliquis) 5 mg PO BID [facility] Last Admin: 07/30/18 09:39 Dose: 5 mg Metoprolol Tartrate (Lopressor) 12.5 mg PO DAILY [facility] - Labs Labs: 07/30/18 07:08 07/30/18 07:08 PT 16.7 SECONDS (9.7-12.2) H 07/27/18 20:52 INR 1.5 07/27/18 20:52 APTT 61 SECONDS (21-34) H D 07/28/18 05:24 - Constitutional Appears: No Acute Distress - Head Exam Head Exam: NORMAL INSPECTION, NORMOCEPHALIC - Eye Exam Eye Exam: EOMI, Normal appearance, PERRL Pupil Exam: NORMAL ACCOMODATION - ENT Exam ENT Exam: Mucous Membranes Moist - Respiratory Exam Respiratory Exam: Clear to Ausculation Bilateral, NORMAL BREATHING PATTERN. a bsent: Decreased Breath Sounds - Cardiovascular Exam Cardiovascular Exam: Irregular Rhythm, +S1, +S2 - GI/Abdominal Exam GI & Abdominal Exam: Soft, Normal Bowel Sounds. absent: Distended, Tenderness - Extremities Exam Extremities Exam: Normal Inspection. absent: Pedal Edema, Tenderness - Neurological Exam Neurological Exam: Alert, Awake, CN II-XII Intact, Oriented x3 - Psychiatric Exam Psychiatric exam: Normal Affect, Normal Mood Assessment and Plan - Assessment and Plan (Free Text) Plan: New Onset Atrial Fibrillation Imaging: - ECHO: Normal EF - Stress test: normal, no ischemia noted Management: - Eliquis 5mg PO BID (script placed in chart), Metoprolol 12.5mg PO daily (dose reduced in light of asymptomatic bradycardia) - Patient is to follow up with Dr. Sultana 08/06/18 4pm - EP consulted, Dr. Ravi, help appreciated Case discussed with Dr. Sultana, Herminia Brown DO, PGY2 <Musa Sultana - Last Filed: 07/30/18 21:48> Objective - Vital Signs/Intake and Output Vital Signs (last 24 hours): Temp Pulse Resp BP Pulse Ox 98.1 F 54 L 20 146/63 99 07/30/18 16:00 07/30/18 17:30 07/30/18 16:00 07/30/18 16:00 07/30/18 16:00 - Medications Medications: Current Medications Apixaban (Eliquis) 5 mg PO BID [facility] Last Admin: 07/30/18 18:25 Dose: 5 mg - Labs Labs: 07/30/18 07:08 07/30/18 07:08 PT 16.7 SECONDS (9.7-12.2) H 07/27/18 20:52 INR 1.5 07/27/18 20:52 APTT 61 SECONDS (21-34) H D 07/28/18 05:24 Assessment and Plan - Assessment and Plan (Free Text) Plan: Patient seen and evaluated personally by me Plan of care d/w the medical office professional instructor and as documented
--- NOTE | 2018-07-30 11:45 | CP.PCM.DIS ---
Provider - Provider Date of Admission: 07/27/18 14:17 Attending physician: Kenny Wheeler MD Consults: 07/27/18 13:54 Cardiology Consult Stat Comment: Consulting Provider: Musa Sultana Consulting Physician: Musa Sultana Reason for Consult: wide complex tachycardia Time Spent in preparation of Discharge (in minutes): 20 Diagnosis - Discharge Diagnosis (1) Atrial fibrillation Status: Acute (2) Hypertensive cardiovascular disease Status: Acute (3) Wide-complex tachycardia Status: Acute Hospital Course - Lab Results Lab Results: Micro Results 07/27/18 Unknown Nose MRSA Culture (Admit) - Final MRSA NOT DETECTED Most Recent Lab Values WBC 4.5 K/uL (4.8-10.8) L 07/30/18 07:08 RBC 4.07 Mil/uL (3.80-5.20) 07/30/18 07:08 Hgb 13.0 g/dL (11.0-16.0) 07/30/18 07:08 Hct 38.8 % (34.0-47.0) 07/30/18 07:08 MCV 95.2 fL (81.0-99.0) 07/30/18 07:08 MCH 32.0 pg (27.0-31.0) H 07/30/18 07:08 MCHC 33.6 g/dL (33.0-37.0) 07/30/18 07:08 RDW 15.1 % (11.5-14.5) H 07/30/18 07:08 Plt Count 163 K/uL (130-400) 07/30/18 07:08 MPV 8.3 fL (7.2-11.7) 07/30/18 07:08 Neut % (Auto) 36.4 % (50.0-75.0) L 07/30/18 07:08 Lymph % (Auto) 43.2 % (20.0-40.0) H 07/30/18 07:08 [place] % (Auto) 16.0 % (0.0-10.0) H 07/30/18 07:08 Eos % (Auto) 3.3 % (0.0-4.0) 07/30/18 07:08 Baso % (Auto) 1.1 % (0.0-2.0) 07/30/18 07:08 Neut # (Auto) 1.6 K/uL (1.8-7.0) L 07/30/18 07:08 Lymph # (Auto) 1.9 K/uL (1.0-4.3) 07/30/18 07:08 [place] # (Auto) 0.7 K/uL (0.0-0.8) 07/30/18 07:08 Eos # (Auto) 0.1 K/uL (0.0-0.7) 07/30/18 07:08 Baso # (Auto) 0.1 K/uL (0.0-0.2) 07/30/18 07:08 PT 16.7 SECONDS (9.7-12.2) H 07/27/18 20:52 INR 1.5 07/27/18 20:52 APTT 61 SECONDS (21-34) H D 07/28/18 05:24 Sodium 138 mmol/L (132-148) 07/30/18 07:08 Potassium 4.1 mmol/L (3.6-5.2) 07/30/18 07:08 Chloride 102 mmol/L (98-107) 07/30/18 07:08 Carbon Dioxide 27 mmol/L (22-30) 07/30/18 07:08 Anion Gap 13 (10-20) 07/30/18 07:08 BUN 10 mg/dL (7-17) 07/30/18 07:08 Creatinine 0.6 mg/dL (0.7-1.2) L 07/30/18 07:08 Est GFR ( Amer) > 60 07/30/18 07:08 Est GFR (Non-Af Amer) > 60 07/30/18 07:08 Random Glucose 98 mg/dL (65-105) 07/30/18 07:08 Calcium 8.8 mg/dl (8.6-10.4) 07/30/18 07:08 Phosphorus 4.2 mg/dL (2.5-4.5) 07/30/18 07:08 Magnesium 1.6 mg/dL (1.6-2.3) 07/30/18 07:08 Total Bilirubin 0.8 mg/dL (0.2-1.3) 07/30/18 07:08 AST 53 U/L (14-36) H 07/30/18 07:08 ALT 28 U/L (9-52) 07/30/18 07:08 Alkaline Phosphatase 86 U/L (38-126) 07/30/18 07:08 Total Creatine Kinase 140 U/L (30-135) H 07/27/18 13:01 CK-MB (Mass) 3.72 ng/mL (0.0-3.38) H 07/27/18 13:01 Troponin I 0.0280 ng/mL (0.00-0.120) 07/28/18 06:15 NT-Pro-B Natriuret Pep 305 pg/mL (0-900) 07/27/18 13:01 Total Protein 7.3 g/dL (6.3-8.3) 07/30/18 07:08 Albumin 3.6 g/dL (3.5-5.0) 07/30/18 07:08 Globulin 3.7 gm/dL (2.2-3.9) 07/30/18 07:08 Albumin/Globulin Ratio 1.0 (1.0-2.1) 07/30/18 07:08 Free T4 1.03 ng/dL (0.78-2.19) 07/27/18 20:52 TSH 3rd Generation 0.87 mIU/L (0.46-4.68) 07/27/18 13:01 Urine Color Yellow (YELLOW) 07/27/18 17:02 Urine Clarity Clear (Clear) 07/27/18 17:02 Urine pH 5.0 (5.0-8.0) 07/27/18 17:02 Ur Specific Festus 1.006 (1.003-1.030) 07/27/18 17:02 Urine Protein Negative mg/dL (NEGATIVE) 07/27/18 17:02 Urine Glucose (UA) Normal mg/dL (Normal) 07/27/18 17:02 Urine Ketones Negative mg/dL (NEGATIVE) 07/27/18 17:02 Urine Blood 1+ (NEGATIVE) H 07/27/18 17:02 Urine Nitrate Negative (NEGATIVE) 07/27/18 17:02 Urine Bilirubin Negative (NEGATIVE) 07/27/18 17:02 Urine Urobilinogen Normal mg/dL (0.2-1.0) 07/27/18 17:02 Ur Leukocyte Esterase Neg Vargas/uL (Negative) 07/27/18 17:02 Urine WBC (Auto) 1 /hpf (0-5) 07/27/18 17:02 Urine RBC (Auto) 3 /hpf (0-3) 07/27/18 17:02 Ur Squamous Epith Cells < 1 /hpf (0-5) 07/27/18 17:02 - Hospital Course Hospital Course: 62 y/o lady presented on the day of admission in the PMD office for routine f/u. The physical examination reveled an irregular pulse with tachyarrhythmia and accelerated htn. The clinical impression of new onset of a. fib was confirmed with an EKG that reveled a. fib with rapid response at 170 bpm. The SBP was more than 170. She was brought to ER via EMS. and started on amiodarone and heparin iv. At present she looks comfortable and the HR is around 90. She presented with same electrolytes imbalance that where corrected. Will start on oral anti coagulant. She well responded to medical rx. The stress test is wnl. Will DC home on beta blokers and oral anti coagulation.At present the patient is bradycardic will hold dc decrease beta blockers. Discharge Exam - Head Exam Head Exam: NORMAL INSPECTION, NORMOCEPHALIC - Eye Exam Eye Exam: Normal appearance - Neck Exam Neck exam: Full Rom - Respiratory Exam Respiratory Exam: Clear to PA & Lateral - Cardiovascular Exam Cardiovascular Exam: Bradycardia, REGULAR RHYTHM, +S1, +S2 - GI/Abdominal Exam GI & Abdominal Exam: Normal Bowel Sounds - Neurological Exam Neurological exam: Alert, CN II-XII Intact, Oriented x3 - Psychiatric Exam Psychiatric exam: Normal Affect - Skin Skin Exam: Normal Color Discharge Plan - Follow Up Plan Condition: CRITICAL Disposition: HOME/ ROUTINE
--- NOTE | 2018-07-30 13:33 | CP.PCM.PN ---
Subjective - Date & Time of Evaluation Date of Evaluation: 07/30/18 Time of Evaluation: 13:32 - Subjective Subjective: Now bradycardicardic hold DC PE as per DC summ. Objective - Vital Signs/Intake and Output Vital Signs (last 24 hours): Temp Pulse Resp BP Pulse Ox 97.9 F 56 L 20 129/63 96 07/30/18 08:25 07/30/18 08:25 07/30/18 08:25 07/30/18 08:25 07/30/18 08:25 - Medications Medications: Current Medications Apixaban (Eliquis) 5 mg PO BID [facility] Last Admin: 07/30/18 09:39 Dose: 5 mg Metoprolol Tartrate (Lopressor) 12.5 mg PO DAILY [facility] - Labs Labs: 07/30/18 07:08 07/30/18 07:08 PT 16.7 SECONDS (9.7-12.2) H 07/27/18 20:52 INR 1.5 07/27/18 20:52 APTT 61 SECONDS (21-34) H D 07/28/18 05:24 Assessment and Plan (1) Atrial fibrillation Status: Acute (2) Hypertensive cardiovascular disease Status: Acute (3) Wide-complex tachycardia Status: Acute
[2018-07-31 07:21] LABS: BASO # 0.1 K/uL (0.0-0.2); EOS # 0.2 K/uL (0.0-0.7); EOS % 4.5 % (0.0-4.0); LYMPH % 37.8 % (20.0-40.0); MEAN CELL VOLUME 95.7 fL (81.0-99.0); MEAN CORPUSCULAR HEMOGLOBIN 32.3 pg (27.0-31.0); MEAN CORPUSCULAR HGB CONC 33.8 g/dL (33.0-37.0); MEAN PLATELET VOLUME 8.6 fL (7.2-11.7); MONO # 0.9 K/uL (0.0-0.8); MONO % 16.4 % (0.0-10.0); NEUT # 2.2 K/uL (1.8-7.0); NEUT % 40.3 % (50.0-75.0); RBC 4.01 Mil/uL (3.80-5.20); RED CELL DISTRIBUTION WIDTH 15.2 % (11.5-14.5); WHITE BLOOD COUNT 5.4 K/uL (4.8-10.8)
[2018-07-31 07:46] LABS: ALBUMIN 3.7 g/dL (3.5-5.0); ALT/SGPT 36 U/L (9-52); AST/SGOT 66 U/L (14-36); BLOOD UREA NITROGEN 12 mg/dL (7-17); CALCIUM 9.4 mg/dl (8.6-10.4); GFR NON-AFRICAN AMERICAN > 60
[2018-07-31] MEDS ORDERED: HEPARIN-NS 5,000 UNITS/500 ML 5,000 UNIT/500 ML BAG IV ONE (12:58)
[2018-07-31] MEDS: ceFAZolin IV 1 gm in Dextrose 1 GM/50 ML BAG IVPB ONE ×2 (13:05→14:05)
[2018-07-31] MEDS: Lidocaine Hydrochloride 5 ML INJ ONE ×2 (13:17→14:17)
[2018-07-31] MEDS: Lidocaine Hydrochloride 10 ML INJ ONE ×2 (13:17→14:17)
[2018-07-31] MEDS ORDERED: Midazolam 2 MG/2 ML VIAL ONE ×2 (14:06→14:16)
[2018-07-31] MEDS ORDERED: HYDROmorphone 0.5 mg/0.5 ml ISec IVP PRN (14:37)
[2018-07-31] MEDS ORDERED: Thrombin Topical 20,000 Intl Units Spray Kit TOP ONE (14:40)
--- NOTE | 2018-07-31 15:14 | CP.PCM.CON ---
History of Present Illness - History of Present Illness History of Present Illness: EP consult Re: Wide complex tachycardia Atrial fibrillation LBBB Bradycardia Ms. Norris was admitted with a history of tachycardia at a routine examination. She was admitted in the ICU rate controlled; an echocardiogram and coronary studies were negative; she was placed on anticoagulation and transferred to the floor; she was noted to have LBBB and slow heart rates in the fortees She has no significant symptoms except for an episode of brief disorientation on per her Past medical history: systemic hypertension Past surgery: Hysterectomy, Lung mass biopsy of nodule (benign results) Social History: Denies tobacco, alcohol, or drug use. Works in a [employer]. Family History: Father had heart disease and of CVA in his 50's. 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 paroxysmal atrial fibrillation and an episode of unsteadiness; assuming the latter being hemodynamically mediated opt ions are to continue monitoring minimize rate control medications a loop recorder implant versus a permanent pacemaker implant Anticoagulation in absence of blleding contraindications is reasonable; there is no imperative for a rhythm control strategy at this point Discussed with patient and her Naun by telephone at length prognosis options procedures risks including but not limited to infection pneumothorax bleeding tamponade; they verbalized understanding and were leaning towards a pa cemaker but would prefer to make the decision in am Plan NPO post breakfast Hold slick [facility] nursing staff Past Patient History - Past Social History Smoking Status: Never Smoked - CARDIAC Hx Hypertension: Yes - PULMONARY Hx Respiratory Disorders: No - NEUROLOGICAL Hx Neurological Disorder: No - HEENT Hx HEENT Problems: No - RENAL Hx Chronic Kidney Disease: No - ENDOCRINE/METABOLIC Hx Endocrine Disorders: No - HEMATOLOGICAL/ONCOLOGICAL Hx Anemia: Yes - INTEGUMENTARY Hx Dermatological Problems: No - MUSCULOSKELETAL/RHEUMATOLOGICAL Hx Falls: No - GENITOURINARY/GYNECOLOGICAL Hx Genitourinary Disorders: No - PSYCHIATRIC Hx Psychophysiologic Disorder: No Hx Substance Use: No - SURGICAL HISTORY Other/Comment: total [id number]. lung surgery =due to small [id number] - ANESTHESIA Hx Anesthesia: Yes Hx Anesthesia Reactions: No Hx Malignant Hyperthermia: No Has any member of the family had a problem w/ anesthesia?: No Meds Home Medications: Home Medication List Medication Instructions Recorded Confirmed Type RX: Apixaban [Eliquis] 5 mg PO BID tab 07/30/18 Rx RX: Metoprolol Tartrate [Lopressor] 12.5 mg PO BID tab 07/30/18 Rx Allergies/Adverse Reactions: Allergies Allergy/AdvReac Type Severity Reaction Status Date / Time No Known Allergies Allergy Verified 07/27/18 12:46 - Medications Medications: Current Medications Hydromorphone HCl (Dilaudid) 0.5 mg IVP Q5M PRN PRN Reason: Pain, Mild (1-3) Stop: 07/31/18 16:38 Ondansetron HCl (Zofran Inj) 4 mg IVP ONCE PRN PRN Reason: Nausea/Vomiting Stop: 07/31/18 16:38 Results - Vital Signs Recent Vital Signs: Last Vital Signs Temp 98.2 F 07/30/18 23:25 Pulse 52 L 07/31/18 08:23 Resp 20 07/30/18 23:25 BP 147/68 07/30/18 23:25 Pulse Ox 96 07/30/18 23:25 - Labs Result Diagrams: 07/31/18 07:12 07/31/18 07:12 Labs: Laboratory Results - last 24 hr 07/31/18 07/31/18 07:12 07:12 WBC 5.4 RBC 4.01 Hgb 13.0 Hct 38.4 MCV 95.7 MCH 32.3 H MCHC 33.8 RDW 15.2 H Plt Count 182 MPV 8.6 Neut % (Auto) 40.3 L Lymph % (Auto) 37.8 [place] % (Auto) 16.4 H Eos % (Auto) 4.5 H Baso % (Auto) 1.0 Neut # (Auto) 2.2 Lymph # (Auto) 2.0 [place] # (Auto) 0.9 H Eos # (Auto) 0.2 Baso # (Auto) 0.1 Sodium 138 Potassium 4.2 Chloride 102 Carbon Dioxide 26 Anion Gap 14 BUN 12 Creatinine 0.6 L Est GFR ( Amer) > 60 Est GFR (Non-Af Amer) > 60 Random Glucose 99 Calcium 9.4 Phosphorus 5.0 H Magnesium 1.4 L Total Bilirubin 0.8 AST 66 H D ALT 36 Alkaline Phosphatase 101 Total Protein 7.5 Albumin 3.7 Globulin 3.8 Albumin/Globulin Ratio 1.0
[2018-07-31] MEDS ORDERED: Oxycodone/Acetaminophen 5/325 mg Tab PO PRN (15:19)
--- NOTE | 2018-07-31 15:24 | PCM.OP ---
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 paroxysmal atrial fibrillation and an episode of unsteadiness; assuming the latter being hemodynamically mediated options are to continue monitoring minimize rate control medications a loop recorder implant versus a permanent pacemaker implant Anticoagulation in absence of blleding contraindications is reasonable; there is no imperative for a rhythm control strategy at this point Discussed with patient and her Naun by telephone at length prognosis options procedures risks including but not limited to infection pneumothorax bleeding tamponade; they verbalized understanding and agreed for a pacemaker Procedure/Operation Description: The left pectoral region was cleansed and prepped in the usual fashion. The axillary vein was accessed twice after local anesthesia; two guide wires were placed A 3 cm incision was made three centimeters inferior to the clavicle and a pocket was created; the guide wires were internalized and via two six english sheaths a 45 cm and 52 cm pacing leads were placed in the right atrial appendage and the right ventricular apex and the sense and pace parameters were acceptable Next the leads were secured to the pectoral muscle; the pocket was cleansed with antibiotics; hemostases was ensured and thrombin was sprayed; next the st ivett generator was attached to the leads and the pocket was closed The pocket was closed in layers with vicryl and skin michela; telfa and tegaderm dressing was placed and the patient was sent to the floors in a stable condition with orders for stat CXray and antibiotics and hold anticoagulation x 3 days Estimated Blood Loss: 5cc Complications: None Discharge & Condition: Stable
--- NOTE | 2018-07-31 15:43 | RAD ---
Date of service: 07/31/2018 HISTORY: post op COMPARISON: 07/27/2018. FINDINGS: LUNGS: The lungs are well inflated and clear. PLEURA: No pleural effusions or pneumothorax. CARDIOVASCULAR: The heart is normal in size. There is stable position of left-sided permanent pacing device. No aortic atherosclerotic calcification present. OSSEOUS STRUCTURES: Within normal limits for the patient's age. VISUALIZED UPPER ABDOMEN: Normal. OTHER FINDINGS: None. IMPRESSION: No active pulmonary disease.
--- NOTE | 2018-07-31 20:17 | CP.PCM.PN ---
Subjective - Date & Time of Evaluation Date of Evaluation: 07/31/18 Time of Evaluation: 10:00 - Subjective Subjective: Medicine resident progress note Patient seen and examined at bedside with present. No acute events reported overnight. Patient is anxious about her pacemaker procedure with Dr. Ravi later today. Patient denies having fever, chills, dizziness, shortness of breath, chest pain, palpitations, nausea, vomiting or urinary symptoms. Objective - Vital Signs/Intake and Output Vital Signs (last 24 hours): Temp Pulse Resp BP Pulse Ox 97.6 F 70 12 147/72 100 07/31/18 15:59 07/31/18 15:59 07/31/18 15:59 07/31/18 15:59 07/31/18 15:59 Intake and Output: 07/31/18 08/01/18 18:59 06:59 Intake Total 765 Balance 765 - Medications Medications: Current Medications Cefazolin Sodium/Dextrose (Ancef Iv 1 Gm Duplex) 1 gm in 50 mls @ 100 mls/hr IVPB Q8H [facility]; Protocol Stop: 08/01/18 14:29 Oxycodone/Acetaminophen (Percocet 5/325 Mg Tab) 1 tab PO Q6H PRN PRN Reason: pain Stop: 08/03/18 15:20 - Labs Labs: 07/31/18 07:12 07/31/18 07:12 PT 16.7 SECONDS (9.7-12.2) H 07/27/18 20:52 INR 1.5 07/27/18 20:52 APTT 61 SECONDS (21-34) H D 07/28/18 05:24 - Constitutional Appears: Well, No Acute Distress - Head Exam Head Exam: NORMAL INSPECTION, NORMOCEPHALIC - Eye Exam Eye Exam: EOMI, Normal appearance, PERRL Pupil Exam: NORMAL ACCOMODATION - ENT Exam ENT Exam: Mucous Membranes Moist - Neck Exam Neck Exam: Full ROM, Normal Inspection - Respiratory Exam Respiratory Exam: Clear to Ausculation Bilateral, NORMAL BREATHING PATTERN. absent: Wheezes, Respiratory Distress - Cardiovascular Exam Cardiovascular Exam: Irregular Rhythm, +S1, +S2 - GI/Abdominal Exam GI & Abdominal Exam: Soft, Normal Bowel Sounds. absent: Tenderness - Extremities Exam Extremities Exam: Normal Inspection. absent: Pedal Edema - Back Exam Back Exam: NORMAL INSPECTION - Neurological Exam Neurological Exam: Alert, Awake, Oriented x3 - Psychiatric Exam Psychiatric exam: Anxious - Skin Skin Exam: Dry, Normal Color, Warm Assessment and Plan - Assessment and Plan (Free Text) Assessment: New onset atrial fibrillation -Planned pacemaker placement with Dr. Ravi today -Follow cardiology/EP recommendations - ECHO 07/27 shows Normal EF - Normal stress test, no ischemia noted HTN -Hold home meds due to procedure Prophylactic measures -SCD -GI ppx not indicated Dispo: resume and discharge home tomorrow afternoon
[2018-07-31] MEDS: ceFAZolin IV 1 gm in Dextrose 1 GM/50 ML BAG IVPB SCH (22:21)
[2018-07-31 22:38] VITALS: RESP 20
--- NOTE | 2018-07-31 22:53 | CP.PCM.PN ---
Subjective - Date & Time of Evaluation Date of Evaluation: 07/31/18 Time of Evaluation: 09:20 - Subjective Subjective: Patient seen and evaluated denies chest pain and dyspnea Patient for PPM today for Sick Sinus node disease Objective - Vital Signs/Intake and Output Vital Signs (last 24 hours): Temp Pulse Resp BP Pulse Ox 97.6 F 69 20 117/68 96 07/31/18 15:59 07/31/18 22:37 07/31/18 22:37 07/31/18 22:37 07/31/18 22:37 Intake and Output: 07/31/18 08/01/18 18:59 06:59 Intake Total 765 Balance 765 - Medications Medications: Current Medications Cefazolin Sodium/Dextrose (Ancef Iv 1 Gm Duplex) 1 gm in 50 mls @ 100 mls/hr IVPB Q8H [facility]; Protocol Stop: 08/01/18 14:29 Last Admin: 07/31/18 22:21 Dose: 100 mls/hr Oxycodone/Acetaminophen (Percocet 5/325 Mg Tab) 1 tab PO Q6H PRN PRN Reason: pain Stop: 08/03/18 15:20 Last Admin: 07/31/18 22:42 Dose: 1 tab - Labs Labs: 07/31/18 07:12 07/31/18 07:12 PT 16.7 SECONDS (9.7-12.2) H 07/27/18 20:52 INR 1.5 07/27/18 20:52 APTT 61 SECONDS (21-34) H D 07/28/18 05:24
[2018-08-01] MEDS: ceFAZolin IV 1 gm in Dextrose 1 GM/50 ML BAG IVPB SCH (05:48)
[2018-08-01 08:01] VITALS: TEMP 98.1; O2SAT 97
[2018-08-01 08:37] VITALS: PULSE 74
[2018-08-01 08:42] LABS: BASO % 0.5 % (0.0-2.0); EOS # 0.2 K/uL (0.0-0.7); EOS % 2.6 % (0.0-4.0); HEMOGLOBIN 14.1 g/dL (11.0-16.0); LYMPH # 2.2 K/uL (1.0-4.3); LYMPH % 31.6 % (20.0-40.0); MEAN CORPUSCULAR HEMOGLOBIN 32.2 pg (27.0-31.0); MEAN CORPUSCULAR HGB CONC 33.9 g/dL (33.0-37.0); MEAN PLATELET VOLUME 8.3 fL (7.2-11.7); MONO % 14.5 % (0.0-10.0); NEUT # 3.6 K/uL (1.8-7.0); NEUT % 50.8 % (50.0-75.0); RBC 4.39 Mil/uL (3.80-5.20); RED CELL DISTRIBUTION WIDTH 14.9 % (11.5-14.5); WHITE BLOOD COUNT 7.1 K/uL (4.8-10.8)
[2018-08-01 08:55] LABS: ALB/GLOB RATIO 0.9 (1.0-2.1); ALT/SGPT 49 U/L (9-52); AST/SGOT 85 U/L (14-36); BLOOD UREA NITROGEN 13 mg/dL (7-17); CALCIUM 9.3 mg/dl (8.6-10.4); GFR NON-AFRICAN AMERICAN > 60
[2018-08-01 10:02] VITALS: BP 130/68
[2018-08-01] MEDS ORDERED: Magnesium Sulfate 1 gm in D5W 1 GM/100 ML BAG IVPB SCH (10:15)
--- NOTE | 2018-08-01 16:41 | CP.PCM.DIS ---
Provider - Provider Date of Admission: 07/27/18 14:17 Attending physician: Kenny Wheeler MD Primary care physician: Dr. Wheeler Consults: 07/27/18 13:54 Cardiology Consult Stat Comment: Consulting Provider: Musa Sultana Consulting Physician: Musa Sultana Reason for Consult: wide complex tachycardia 07/30/18 15:23 Cardiology Consult Routine Comment: attending notified this morning by Rd Consulting Provider: Be Ravi Consulting Physician: Be Ravi Reason for Consult: EP, for new onset afib Time Spent in preparation of Discharge (in minutes): 45 Diagnosis - Discharge Diagnosis (1) Atrial fibrillation Status: Acute (2) Wide-complex tachycardia Status: Acute (3) Hypertension Status: Chronic Hospital Course - Lab Results Lab Results: Micro Results 07/30/18 07:13 Naris MRSA Culture - Final MRSA NOT DETECTED 07/30/18 03:22 Naris MRSA Culture - Final MRSA NOT DETECTED 07/27/18 Unknown Nose MRSA Culture (Admit) - Final MRSA NOT DETECTED Most Recent Lab Values WBC 7.1 K/uL (4.8-10.8) 08/01/18 08:29 RBC 4.39 Mil/uL (3.80-5.20) 08/01/18 08:29 Hgb 14.1 g/dL (11.0-16.0) 08/01/18 08:29 Hct 41.7 % (34.0-47.0) 08/01/18 08:29 MCV 95.0 fL (81.0-99.0) 08/01/18 08:29 MCH 32.2 pg (27.0-31.0) H 08/01/18 08:29 MCHC 33.9 g/dL (33.0-37.0) 08/01/18 08:29 RDW 14.9 % (11.5-14.5) H 08/01/18 08:29 Plt Count 195 K/uL (130-400) 08/01/18 08:29 MPV 8.3 fL (7.2-11.7) 08/01/18 08:29 Neut % (Auto) 50.8 % (50.0-75.0) 08/01/18 08:29 Lymph % (Auto) 31.6 % (20.0-40.0) 08/01/18 08:29 Early % (Auto) 14.5 % (0.0-10.0) H 08/01/18 08:29 Eos % (Auto) 2.6 % (0.0-4.0) 08/01/18 08:29 Baso % (Auto) 0.5 % (0.0-2.0) 08/01/18 08:29 Neut # (Auto) 3.6 K/uL (1.8-7.0) 08/01/18 08:29 Lymph # (Auto) 2.2 K/uL (1.0-4.3) 08/01/18 08:29 Early # (Auto) 1.0 K/uL (0.0-0.8) H 08/01/18 08:29 Eos # (Auto) 0.2 K/uL (0.0-0.7) 08/01/18 08:29 Baso # (Auto) 0.0 K/uL (0.0-0.2) 08/01/18 08:29 PT 16.7 SECONDS (9.7-12.2) H 07/27/18 20:52 INR 1.5 07/27/18 20:52 APTT 61 SECONDS (21-34) H D 07/28/18 05:24 Sodium 136 mmol/L (132-148) 08/01/18 08:29 Potassium 4.2 mmol/L (3.6-5.2) 08/01/18 08:29 Chloride 99 mmol/L (98-107) 08/01/18 08:29 Carbon Dioxide 27 mmol/L (22-30) 08/01/18 08:29 Anion Gap 15 (10-20) 08/01/18 08:29 BUN 13 mg/dL (7-17) 08/01/18 08:29 Creatinine 0.6 mg/dL (0.7-1.2) L 08/01/18 08:29 Est GFR ( Amer) > 60 08/01/18 08:29 Est GFR (Non-Af Amer) > 60 08/01/18 08:29 Random Glucose 102 mg/dL (65-105) 08/01/18 08:29 Calcium 9.3 mg/dl (8.6-10.4) 12/09/18 08:29 Phosphorus 4.6 mg/dL (2.5-4.5) H 08/01/18 08:29 Magnesium 1.5 mg/dL (1.6-2.3) L 08/01/18 08:29 Total Bilirubin 1.1 mg/dL (0.2-1.3) 08/01/18 08:29 AST 85 U/L (14-36) H D 08/01/18 08:29 ALT 49 U/L (9-52) 08/01/18 08:29 Alkaline Phosphatase 85 U/L (38-126) 08/01/18 08:29 Total Creatine Kinase 140 U/L (30-135) H 07/27/18 13:01 CK-MB (Mass) 3.72 ng/mL (0.0-3.38) H 07/27/18 13:01 Troponin I 0.0280 ng/mL (0.00-0.120) 07/28/18 06:15 NT-Pro-B Natriuret Pep 305 pg/mL (0-900) 07/27/18 13:01 Total Protein 8.2 g/dL (6.3-8.3) 08/01/18 08:29 Albumin 4.0 g/dL (3.5-5.0) 08/01/18 08:29 Globulin 4.2 gm/dL (2.2-3.9) H 08/01/18 08:29 Albumin/Globulin Ratio 0.9 (1.0-2.1) L 08/01/18 08:29 Free T4 1.03 ng/dL (0.78-2.19) 07/27/18 20:52 TSH 3rd Generation 0.87 mIU/L (0.46-4.68) 07/27/18 13:01 Urine Color Yellow (YELLOW) 07/27/18 17:02 Urine Clarity Clear (Clear) 07/27/18 17:02 Urine pH 5.0 (5.0-8.0) 07/27/18 17:02 Ur Specific [place] 1.006 (1.003-1.030) 07/27/18 17:02 Urine Protein Negative mg/dL (NEGATIVE) 07/27/18 17:02 Urine Glucose (UA) Normal mg/dL (Normal) 07/27/18 17:02 Urine Ketones Negative mg/dL (NEGATIVE) 07/27/18 17:02 Urine Blood 1+ (NEGATIVE) H 07/27/18 17:02 Urine Nitrate Negative (NEGATIVE) 07/27/18 17:02 Urine Bilirubin Negative (NEGATIVE) 07/27/18 17:02 Urine Urobilinogen Normal mg/dL (0.2-1.0) 07/27/18 17:02 Ur Leukocyte Esterase Neg [place]arg[place]/uL (Negative) 07/27/18 17:02 Urine WBC (Auto) 1 /hpf (0-5) 07/27/18 17:02 Urine RBC (Auto) 3 /hpf (0-3) 07/27/18 17:02 Ur Squamous Epith Cells < 1 /hpf (0-5) 07/27/18 17:02 - Hospital Course Hospital Course: 62 year old female with history of hypertension presented on the day of admission in the PMD office for routine B12 shot. The physical examination reveled an irregular pulse with tachyarythmia and accelerated hypertension. The clinical impression of new onset of atrial fibrillation was confirmed with an EKG that reveled atrial fibrillation with rapid response at 170 bpm. She was soon brought to [facility] ER via EMS. Patient received Procainamine en route and was given full dose of aspirin at PMD office. Cardiology Dr. Sultana was consulted and recommended Amiodarone bolus and drip and heparin bolus and drip. Patient was then transferred to ICU. During her inpatient course echocardiogram and stress test were negative. Patient was placed on anticoagulation and transferred to the floor. She was noted to have LBBB and bradycardia in the 40s. EP Dr. Ravi was consulted whom recommended pacemaker for the patient. Patient then underwent pacemaker placement on 07/31/18. Patient tolerated procedure well and remained on the floor for 1 more day prior to discharge. Treatment plan was discussed in detail with both patient and cardiology team present. Patient understood and agreed with the treatment plan. Prescriptions and follow up instructions were given to the patient prior to the hospital discharge. Above is a brief summary of patient's hospital course, please obtain medical records for further details. - Date & Time of H&P Date of H&P: 07/28/18 Time of H&P: 14:49 Discharge Exam - Head Exam Head Exam: ATRAUMATIC, NORMOCEPHALIC - Eye Exam Eye Exam: EOMI, Normal appearance Pupil Exam: NORMAL ACCOMODATION, PERRL - ENT Exam ENT Exam: Mucous Membranes Moist - Neck Exam Neck exam: Full Rom, Normal Inspection - Respiratory Exam Respiratory Exam: Clear to PA & Lateral, NORMAL BREATHING PATTERN, UNREMARKABLE. absent: Respiratory Distress - Cardiovascular Exam Cardiovascular Exam: +S1, +S2 - GI/Abdominal Exam GI & Abdominal Exam: Normal Bowel Sounds, Unremarkable - Extremities Exam Extremities exam: normal capillary refill, normal inspection, pedal pulses pres ent - Neurological Exam Neurological exam: Alert, Oriented x3 - Psychiatric Exam Psychiatric exam: Normal Affect, Normal Mood - Skin Skin Exam: Dry, Intact, Normal Color, Warm Discharge Plan - Discharge Medications Prescriptions: Apixaban [Eliquis] 5 mg PO BID #60 tab Enalapril Maleate [Vasotec] 5 mg PO DAILY #30 tab Metoprolol Succinate XL [Toprol XL] 25 mg PO DAILY #30 tab - Follow Up Plan Condition: STABLE Disposition: HOME/ ROUTINE Patient education suggested?: Yes Instructions: Pacemaker Insertion (DC), Pulmonary Hypertension, Adult (DC), Tachycardia (DC), Atrial Fibrillation (DC) Additional Instructions: Diet and actvity as tolerated Referrals: Musa Sultana MD [Staff Provider] - Kenny Wheeler MD [Staff Provider] - Clinical Quality Measures - Date & Time of Discharge Summary Date of Discharge Summary: 08/01/18 Time of Discharge Summary: 18:30
--- NOTE | 2018-08-02 08:14 | CARD ---
APPROVED REPORT Date of service: 07/29/2018 Protocol: LEXISCAN Test Type: LEXISCAN STRESS Test Indications: ATRIAL FIB Medications: LIST Target HR: 156 bpm Resting ECG: NSR W/ LBBB Resting Heart Rate: 62 bpm Resting Blood Pressure: 140/80mmHg submaximum (85%): 133 bpm TEST SUMMARY PREINFSNHYPERV.17:000.00..873627/80.0. INFUSIONDOSE 100:300.00..062/.0. ARSQQKMXK81:200.00..691512/80.0. PROCEDURE Pharmacologic stress testing was performed using 0.4mg per 5ml of regadenoson given intravenously over 7-10 seconds. POST EXERCISE Reason for Termination: Protocol Completed Target HR: No Max HR: 62 bpm 60% of Maximum Predicted HR: 156 bpm Exercise duration: 00:30 min:sec, 0 Stage Exercise capacity: 1.0METs Max Blood Pressure: 140/80mmHg Blood Pressure response to exercise: normal resting BP - appropriate response Heart Rate response to exercise: appropriate Chest Pain: No, none Angina index: 0 Arrhythmia: No, none ST Change: No, none Deviation: 0 mm INTERPRETATION Stress EKG Conclusion: INCONCLUSIVE DUE TO PRE-EXISTING LBBB NORMAL BP RESPONSE TO LEXISCAN NUCLEAR STUDIES TO BE READ SEPARATELY EXAM: Myocardial Perfusion STRESS/REST Imaging Protocol The imaging protocol used to acquire images was Stress Tc-99m/rest Tc-99m 1 day Rest Spect myocardial perfusion imaging was performed in supine position 45 minutes following the injection of 33.0 mCi of Tc-99 Myoview. Gated Stress Spect was performed 45 minutes after intravenous 13.2 mCi Tc-99 Myoview injection. The images were gated to evaluate regional wall motion and calculate ventricular ejection fraction.Images were reconstructed using backfilter projection method in short horizontal and verticle long axis. Spect slices were generated. RESTING DATA EDV92.65vqVG4.10L/min ESV27.00mlMyocardial Uqmt238.00g Av. Heart Rate63.00bpm EF71.00% STRESS DATA NAY933.45cqCD2.90L/min ESV32.00mlMyocardial Clzo574.00g EF70.00% Regional WT score at stress:0.00 Regional WM score at stress:0.00 Summed WT score at stress:0.00 Av. Heart Rate65.00bpmSummed WM score at stress:3.00 LV Perf. Quant 17 Seg. SSS5.00 17 Seg. SRS3.00 17 Seg. SDS2.00 Stress Defect Extent (% LAD)14.40Rest Defect Extent (% LAD)12.50Rev. Defect Extent (% LAD)0.00 Stress Defect Extent (% LCX)17.50Rest Defect Extent (% LCX)8.80Rev. Defect Extent (% LCX)0.00 Stress Defect Extent (% RCA)0.00Rest Defect Extent (% RCA)0.00Rev. Defect Extent (% RCA)0.00 Stress Defect Extent (% DEANDRE)10.40Rest Defect Extent (% DEANDRE)7.20Rev. Defect Extent (% DEANDRE)0.00 Other Information Quality:Good Left Ventricle LV Function:Left ventricle systolic function is normal. The Ejection Fraction is >55%. Conclusion 1. No stress induced reversible perfusion defect. Normal stress test. Normal EF
--- NOTE | 2018-08-02 15:02 | CARD ---
APPROVED REPORT Date of service: 07/31/2018 EKG Measurement Heart [id number] <Conclusion> AV dual-paced rhythm Abnormal ECG
--- NOTE | 2018-08-02 16:16 | RAD ---
Date of service: 07/31/2018 PROCEDURE: Intraoperative Fluoroscopy. HISTORY: PACEMAKER PLACEMENT FINDINGS: Fluoroscopic assistance was provided. Fluoroscopy time = 86.7 sec. Radiation dose = 13.55 mGy. Please refer to the operative report for additional details.
--- NOTE | 2018-08-03 19:03 | CARD ---
APPROVED REPORT Date of service: 07/30/2018 EKG Measurement Heart [id number] AR 178P-25 [id number] <Conclusion> Sinus bradycardia Left axis deviation Left bundle branch block Abnormal ECG
== END 2018-08-01 14:19 | disposition home or self-care (01) | DRG 244 ==
LOC: C.ER 12:43 → C.9E 14:17 → C.9I 14:48 → C.6T 07-29 21:49
PROVIDERS: ADMIT Internal Medicine; ATTEND Internal Medicine
PROC: 02HK3JZ Insertion of Pacemaker Lead into Right Ventricle, Percutaneous Approach (ICD-10-PCS; 2018-07-31)
PROC: 02H63JZ Insertion of Pacemaker Lead into Right Atrium, Percutaneous Approach (ICD-10-PCS; 2018-07-31)
PROC: 0JH606Z Insertion of Pacemaker, Dual Chamber into Chest Subcutaneous Tissue and Fascia, Open Approach (ICD-10-PCS; principal; 2018-07-31 13:00)
DX: I44.7 Left bundle-branch block, unspecified (principal); I11.9 Hypertensive heart disease without heart failure; M81.0 Age-related osteoporosis without current pathological fracture; Z82.3 Family history of stroke; Z95.0 Presence of cardiac pacemaker; I48.0 Paroxysmal atrial fibrillation; I47.2 Ventricular tachycardia

== ENCOUNTER 2018-10-23 08:57 | Inpatient (IN) | payer BC ==
[2018-10-23 08:58] VITALS: BMI 21.7
--- NOTE | 2018-10-23 09:41 | C.PDOC ---
History Of Present Illness 62 year old female presents to the ED for evaluation of chills, congested ears, and sore throat. The patient reports waking up this morning not feeling right. She states checking her pulse today and noticed it was fast. Notes pacemaker was recently inserted. Admits to taking eliquis as prescribed. Denies chest pain, shortness of breath, cough, and any other associated symptoms. Time Seen by Provider: 10/23/18 09:15 Chief Complaint (Nursing): Flu-like Symptoms History Per: Patient History/Exam Limitations: no limitations Onset/Duration Of Symptoms: Hrs Current Symptoms Are (Timing): Still Present Associated Symptoms: Chills, Sore Throat, Other (ear congestion. ) Recent travel outside of the [place]: No Past Medical History Reviewed: Historical Data, Nursing Documentation, Vital Signs Vital Signs: Last Vital Signs Temp 99.7 F H 10/23/18 09:01 Pulse 124 H 10/23/18 09:01 Resp 18 10/23/18 09:01 BP 130/76 10/23/18 09:01 Pulse Ox 100 10/23/18 09:01 - Medical History PMH: Anemia, HTN Denies: Chronic Kidney Disease Surgical History: Pacemaker - [employer] Procedures INSERT PACE. DUAL ULYSSES IN CHEST SUBCU/FASCIA, OPEN (07/27/18) INSERTION OF PACEMAKER LEAD INTO R VENTRICLE, PERC APPROACH (07/27/18) INSERTION OF PACEMAKER LEAD INTO RIGHT ATRIUM, PERC APPROACH (07/27/18) Family History: States: Unknown Family Hx - Social History Hx Alcohol Use: No Hx Substance Use: No - Immunization History Hx Tetanus Toxoid Vaccination: No Hx Influenza Vaccination: Yes Hx Pneumococcal Vaccination: No Review Of Systems Except As Marked, All Systems Reviewed And Found Negative. Constitutional: Positive for: Chills ENT: Positive for: Throat Pain (sore. ), Other (ear congestion. ) Cardiovascular: Negative for: Chest Pain Respiratory: Negative for: Cough, Shortness of Breath Physical Exam - Physical Exam Appears: Non-toxic, No Acute Distress Skin: Warm, Dry Head: Atraumatic, Normacephalic Eye(s): bilateral: Normal Inspection Ear(s): Bilateral: Normal Nose: Normal Oral Mucosa: Moist Throat: Erythema ( pharyngeal erythema.) Neck: Normal ROM, Supple Chest: Symmetrical, No Deformity Cardiovascular: Rhythm Regular, No Murmur, Other (tachycardia.) Respiratory: Normal Breath Sounds, No Rales, No Rhonchi, No Wheezing Gastrointestinal/Abdominal: Normal Exam, Soft, No Tenderness Rectal: Other (light brown stool, no active bleeding) Extremity: Bilateral: Atraumatic, Normal Color And Temperature, Normal ROM Neurological/Psych: Oriented x3, Normal Speech, Normal Cognition ED Course And Treatment - Laboratory Results Result Diagrams: 10/23/18 09:31 10/23/18 09:31 ECG: Interpreted By Me, Viewed By Me ECG Rhythm: Atrial Fibrillation, L BBB Interpretation Of ECG: Left BBB not changed from previous EKG done August 12. Rate From EC O2 Sat by Pulse Oximetry: 100 (RA) Pulse Ox Interpretation: Normal Medical Decision Making Medical Decision Making: Initial plan: -EKG -CXR -Rapid Flu A/B -Urinalysis 10:20 - Discussed with Dr. Ravi who recommended to admit patient to Dr. Hector. 10:25 - Spoke to Dr. Wheeler. Accepts admission to telemetry. Disposition Discussed With : Kenny Wheeler - Disposition Disposition: HOSPITALIZED Disposition Time: 10:29 Condition: STABLE - POA Present On Arrival: None - Clinical Impression Clinical Impression: Rapid atrial fibrillation, Symptomatic anemia - Scribe Statement The provider has reviewed the documentation as recorded by the Scribe (Thalia Francois) Provider Attestation: All medical record entries made by the Scribe were at my direction and personally dictated by me. I have reviewed the chart and agree that the record accurately reflects my personal performance of the history, physical exam, medical decision making, and the department course for this patient. I have also personally directed, reviewed, and agree with the discharge instructions and disposition.
[2018-10-23] MEDS ORDERED: Sodium Chloride 0.9% 1,000 ML ONE (09:43)
[2018-10-23] MEDS ORDERED: Sodium Chloride 0.9% 1,000 ML IV SCH (09:45)
[2018-10-23 09:49] LABS: BASO % 0.4 % (0.0-2.0); EOS % 0.1 % (0.0-4.0); LYMPH # 1.5 K/uL (1.0-4.3); LYMPH % 18.6 % (20.0-40.0); MEAN CORPUSCULAR HEMOGLOBIN 24.2 pg (27.0-31.0); MEAN CORPUSCULAR HGB CONC 30.9 g/dL (33.0-37.0); MEAN PLATELET VOLUME 7.9 fL (7.2-11.7); MONO # 1.5 K/uL (0.0-0.8); MONO % 18.8 % (0.0-10.0); NEUT # 4.9 K/uL (1.8-7.0); NEUT % 62.1 % (50.0-75.0); RBC 3.38 Mil/uL (3.80-5.20); RED CELL DISTRIBUTION WIDTH 17.1 % (11.5-14.5); WHITE BLOOD COUNT 7.9 K/uL (4.8-10.8)
[2018-10-23 09:52] LABS: ALB/GLOB RATIO 1.2 (1.0-2.1); ALBUMIN 4.2 g/dL (3.5-5.0); ALT/SGPT 13 U/L (9-52); AST/SGOT 44 U/L (14-36); BLOOD UREA NITROGEN 13 mg/dL (7-17); CALCIUM 8.7 mg/dl (8.6-10.4); GFR NON-AFRICAN AMERICAN > 60
[2018-10-23 09:55] LABS: SQUAMOUS EPITHIAL 2 /hpf (0-5); URINE BILIRUBIN NEGATIVE (NEGATIVE); URINE BLOOD NEGATIVE (NEGATIVE); URINE CLARITY Hazy (Clear); URINE COLOR Amber (YELLOW); URINE GLUCOSE (UA) NORMAL (Normal); URINE LEUKOCYTE ESTERASE TRACE Leu/uL (Negative); URINE PROTEIN 1+ mg/dL (NEGATIVE); URINE UROBILINOGEN NORMAL mg/dL (0.2-1.0)
[2018-10-23 09:58] LABS: HEMOGLOBIN 8.2 g/dL (11.0-16.0)
[2018-10-23 09:59] LABS: MEAN CELL VOLUME 78.3 fL (81.0-99.0)
[2018-10-23 10:17] LABS: INR 2.4; PROTHROMBIN TIME 26.6 SECONDS (9.7-12.2)
--- NOTE | 2018-10-23 15:22 | RAD ---
Date of service: 10/23/2018 HISTORY: SOB COMPARISON: N comparison chest 07/31/2018 FINDINGS: LUNGS: Suspect minor bibasilar atelectasis PLEURA: No significant pleural effusion identified, no pneumothorax apparent. CARDIOVASCULAR: Heart is enlarged. Apparent coronary artery calcifications. No obvious aortic calcification. No change bipolar pacemaker/defibrillator OSSEOUS STRUCTURES: No significant abnormalities. VISUALIZED UPPER ABDOMEN: Normal. OTHER FINDINGS: None. Mild bibasilar atelectasis. IMPRESSION:
[2018-10-23 15:36] LABS: IRON 29 ug/dL (37-170)
[2018-10-23 15:45] LABS: % IRON SATURATION 6 (20-55); TOTAL IRON BINDING CAPACITY 483 ug/dL (250-450)
--- NOTE | 2018-10-23 18:43 | CP.PCM.HP ---
History of Present Illness - History of Present Illness History of Present Illness: 62 y/o lady with hx of pacemaker and a. fib. She presented in ER with generalized weakness, dizziness near syncope, severe migraine, tachyarrhythmia, tachycardia, a. fib with rapid ventricular response and anemia the Hb is about 6 gm less that her baseline (14 to 8) She poorly responded to ivf. She still hemodynamically not stable, symptomatic will transfuse. Case discussed with strategic planning consultant. The guiac is positive will follow with GI hold anticoagulation. Hemodynamic instability. Present on Admission - Present on Admission Any Indicators Present on Admission: No Review of Systems - Constitutional Constitutional: Weakness - EENT Eyes: As Per HPI - Cardiovascular Cardiovascular: Irregular Heart Rhythm, Palpitations, Rapid Heart Rate - Respiratory Respiratory: As Per HPI - Gastrointestinal Gastrointestinal: As Per HPI - Musculoskeletal Musculoskeletal: As Per HPI - Neurological Neurological: Weakness - Psychiatric Psychiatric: As Per HPI - Endocrine Endocrine: As Per HPI Past Patient History - Past Social History Smoking Status: Never Smoked - CARDIAC Hx Hypertension: Yes Hx Pacemaker: Yes - PULMONARY Hx Respiratory Disorders: No - NEUROLOGICAL Hx Neurological Disorder: No - HEENT Hx HEENT Problems: No - RENAL Hx Chronic Kidney Disease: No - ENDOCRINE/METABOLIC Hx Endocrine Disorders: No - HEMATOLOGICAL/ONCOLOGICAL Hx Anemia: Yes - INTEGUMENTARY Hx Dermatological Problems: No - MUSCULOSKELETAL/RHEUMATOLOGICAL Hx Falls: No - GENITOURINARY/GYNECOLOGICAL Hx Genitourinary Disorders: No - PSYCHIATRIC Hx Substance Use: No - SURGICAL HISTORY Hx Surgeries: Yes Hx Hysterectomy: Yes Other/Comment: lung surgery =due to small [id number] - ANESTHESIA Hx Anesthesia: Yes Hx Anesthesia Reactions: No Hx Malignant Hyperthermia: No Meds Allergies/Adverse Reactions: Allergies Allergy/AdvReac Type Severity Reaction Status Date / Time No Known Allergies Allergy Verified 10/23/18 09:05 Physical Exam - Constitutional Appears: Chronically Ill - Head Exam Head Exam: ATRAUMATIC, NORMAL INSPECTION, NORMOCEPHALIC - Eye Exam Eye Exam: Normal appearance - ENT Exam ENT Exam: Mucous Membranes Dry - Neck Exam Neck exam: Positive for: Full Rom - Respiratory Exam Respiratory Exam: Decreased Breath Sounds - Cardiovascular Exam Cardiovascular Exam: Tachycardia, Irregular Rhythm - GI/Abdominal Exam GI & Abdominal Exam: Normal Bowel Sounds - Neurological Exam Neurological exam: Alert, CN II-XII Intact, Oriented x3 - Psychiatric Exam Psychiatric exam: Flat Affect - Skin Skin Exam: Pallor Results - Vital Signs Recent Vital Signs: Last Vital Signs Temp 98.4 F 10/23/18 15:21 Pulse 110 H 10/23/18 16:00 Resp 20 10/23/18 15:21 BP 98/65 L 10/23/18 15:21 Pulse Ox 100 10/23/18 18:24 - Labs Result Diagrams: 10/23/18 09:31 10/23/18 09:31 Labs: Laboratory Results - last 24 hr 10/23/18 10/23/18 10/23/18 09:31 09:31 09:31 WBC 7.9 RBC 3.38 L Hgb 8.2 L D Hct 26.5 L MCV 78.3 L D MCH 24.2 L MCHC 30.9 L RDW 17.1 H Plt Count 298 D MPV 7.9 Neut % (Auto) 62.1 Lymph % (Auto) 18.6 L [place] % (Auto) 18.8 H Eos % (Auto) 0.1 Baso % (Auto) 0.4 Neut # (Auto) 4.9 Lymph # (Auto) 1.5 [place] # (Auto) 1.5 H Eos # (Auto) 0.0 Baso # (Auto) 0.0 PT INR APTT Sodium 133 Potassium 4.1 Chloride 98 Carbon Dioxide 24 Anion Gap 15 BUN 13 Creatinine 0.6 L Est GFR ( Amer) > 60 Est GFR (Non-Af Amer) > 60 Random Glucose 167 H D Lactic Acid 1.6 Calcium 8.7 Magnesium 1.5 L Iron TIBC % Saturation Total Bilirubin 1.2 AST 44 H D ALT 13 Alkaline Phosphatase 113 Troponin I < 0.0120 Total Protein 7.6 Albumin 4.2 Globulin 3.4 Albumin/Globulin Ratio 1.2 Urine Color Urine Clarity Urine pH Ur Specific [place] Urine Protein Urine Glucose (UA) Urine Ketones Urine Blood Urine Nitrate Urine Bilirubin Urine Urobilinogen Ur Leukocyte Esterase Urine WBC (Auto) Urine RBC (Auto) Ur Squamous Epith Cells Hyaline Casts Stool Occult Blood Influenza Typ A,B (EIA) Blood Type Blood Type Confirm Antibody Screen 10/23/18 10/23/18 10/23/18 09:31 09:40 10:01 WBC RBC Hgb Hct MCV MCH MCHC RDW Plt Count MPV Neut % (Auto) Lymph % (Auto) [place] % (Auto) Eos % (Auto) Baso % (Auto) Neut # (Auto) Lymph # (Auto) [place] # (Auto) Eos # (Auto) Baso # (Auto) PT 26.6 H INR 2.4 APTT 36 H Sodium Potassium Chloride Carbon Dioxide Anion Gap BUN Creatinine Est GFR ( Amer) Est GFR (Non-Af Amer) Random Glucose Lactic Acid Calcium Magnesium Iron TIBC % Saturation Total Bilirubin AST ALT Alkaline Phosphatase Troponin I Total Protein Albumin Globulin Albumin/Globulin Ratio Urine Color Renée Urine Clarity Hazy Urine pH 5.0 Ur Specific [place] 1.019 Urine Protein 1+ H Urine Glucose (UA) Normal Urine Ketones Negative Urine Blood Negative Urine Nitrate Negative Urine Bilirubin Negative Urine Urobilinogen Normal Ur Leukocyte Esterase Trace Urine WBC (Auto) 2 Urine RBC (Auto) 1 Ur Squamous Epith Cells 2 Hyaline Casts 6-10 H Stool Occult Blood Influenza Typ A,B (EIA) Negative for flu a/b Blood Type Blood Type Confirm Antibody Screen 10/23/18 10/23/18 10/23/18 10:19 14:22 14:22 WBC RBC Hgb Hct MCV MCH MCHC RDW Plt Count MPV Neut % (Auto) Lymph % (Auto) [place] % (Auto) Eos % (Auto) Baso % (Auto) Neut # (Auto) Lymph # (Auto) [place] # (Auto) Eos # (Auto) Baso # (Auto) PT INR APTT Sodium Potassium Chloride Carbon Dioxide Anion Gap BUN Creatinine Est GFR ( Amer) Est GFR (Non-Af Amer) Random Glucose Lactic Acid Calcium Magnesium Iron TIBC % Saturation Total Bilirubin AST ALT Alkaline Phosphatase Troponin I < 0.0120 Total Protein Albumin Globulin Albumin/Globulin Ratio Urine Color Urine Clarity Urine pH Ur Specific [place] Urine Protein Urine Glucose (UA) Urine Ketones Urine Blood Urine Nitrate Urine Bilirubin Urine Urobilinogen Ur Leukocyte Esterase Urine WBC (Auto) Urine RBC (Auto) Ur Squamous Epith Cells Hyaline Casts Stool Occult Blood Positive H Influenza Typ A,B (EIA) Blood Type B POSITIVE Blood Type Confirm B POSITIVE Antibody Screen Negative 10/23/18 14:22 WBC RBC Hgb Hct MCV MCH MCHC RDW Plt Count MPV Neut % (Auto) Lymph % (Auto) [place] % (Auto) Eos % (Auto) Baso % (Auto) Neut # (Auto) Lymph # (Auto) [place] # (Auto) Eos # (Auto) Baso # (Auto) PT INR APTT Sodium Potassium Chloride Carbon Dioxide Anion Gap BUN Creatinine Est GFR ( Amer) Est GFR (Non-Af Amer) Random Glucose Lactic Acid Calcium Magnesium Iron 29 L TIBC 483 H % Saturation 6 L Total Bilirubin AST ALT Alkaline Phosphatase Troponin I Total Protein Albumin Globulin Albumin/Globulin Ratio Urine Color Urine Clarity Urine pH Ur Specific [place] Urine Protein Urine Glucose (UA) Urine Ketones Urine Blood Urine Nitrate Urine Bilirubin Urine Urobilinogen Ur Leukocyte Esterase Urine WBC (Auto) Urine RBC (Auto) Ur Squamous Epith Cells Hyaline Casts Stool Occult Blood Influenza Typ A,B (EIA) Blood Type Blood Type Confirm Antibody Screen Assessment & Plan (1) Rapid atrial fibrillation Status: Acute (2) Symptomatic anemia Status: Acute (3) Atrial fibrillation Status: Acute (4) Hypertensive cardiovascular disease Status: Acute (5) Wide-complex tachycardia Status: Acute (6) Hypertension Status: Chronic - Assessment and Plan (Free Text) Plan: As per orders.
[2018-10-23] MEDS ORDERED: Dextrose 5%/0.9% NS 1,000 ML IV ONE (19:07)
[2018-10-23 19:33] LABS: BASO # 0.1 K/uL (0.0-0.2); BASO % 0.5 % (0.0-2.0); LYMPH # 2.2 K/uL (1.0-4.3); LYMPH % 20.1 % (20.0-40.0); MEAN CELL VOLUME 78.7 fL (81.0-99.0); MEAN CORPUSCULAR HEMOGLOBIN 23.4 pg (27.0-31.0); MEAN CORPUSCULAR HGB CONC 29.8 g/dL (33.0-37.0); MEAN PLATELET VOLUME 7.7 fL (7.2-11.7); MONO # 2.1 K/uL (0.0-0.8); MONO % 19.8 % (0.0-10.0); NEUT # 6.4 K/uL (1.8-7.0); NEUT % 59.6 % (50.0-75.0); RBC 3.42 Mil/uL (3.80-5.20); RED CELL DISTRIBUTION WIDTH 17.3 % (11.5-14.5); WHITE BLOOD COUNT 10.7 K/uL (4.8-10.8)
--- NOTE | 2018-10-23 23:27 | CP.PCM.CON ---
History of Present Illness - History of Present Illness History of Present Illness: CC: Palpitations Patient is a 62 year old female with a past medical history of HTN and A Fib admitted for symptomatic anemia and rapid A fib PMD: Dr. Wheeler PMHx: HTN, osteoporosis, A Fib PSHx: Hysterectomy, Lung mass biopsy (benign results) Social Hx: Denies tobacco, alcohol, or drug use. Works in [employer]. Family Hx: Father had heart disease and of CVA in his 50's. Mother had a thyroid tumor Allergies: NKDA Review of Systems - Constitutional Constitutional: absent: Anorexia, Chills, Fatigue, Fever, Headache, Weakness - EENT Eyes: absent: Change in Vision Ears: absent: Decreased Hearing, Abnormal Hearing - Cardiovascular Cardiovascular: absent: Chest Pain, Chest Pain at Rest, Chest Pain with Activity, Diaphoresis, Dyspnea, Dyspnea on Exertion, Irregular Heart Rhythm, Lightheadedness, Palpitations, Rapid Heart Rate, Slow Heart Rate, Syncope - Respiratory Respiratory: absent: Cough, Dyspnea, Hemoptysis, Dyspnea on Exertion - Gastrointestinal Gastrointestinal: absent: Abdominal Pain, Change in Bowel Habits, Change in Stool Character, Coffee Ground Emesis, Constipation, Diarrhea - Genitourinary Genitourinary: absent: Difficulty Urinating, Dysuria, Hematuria - Musculoskeletal Musculoskeletal: absent: Arthralgias, Joint Swelling - Neurological Neurological: absent: Abnormal Hearing, Confusion, Dizziness, Numbness, Headaches, Syncope - Psychiatric Psychiatric: absent: Behavioral Changes, Confusion - Endocrine Endocrine: absent: Change in Body Appearance, Excessive Sweating, Palpitations, Polyuria Physical Exam - Constitutional Appears: Well, Non-toxic, No Acute Distress - Head Exam Head Exam: ATRAUMATIC, NORMOCEPHALIC - Eye Exam Eye Exam: EOMI, Normal appearance - ENT Exam ENT Exam: Mucous Membranes Moist - Neck Exam Neck exam: Positive for: Normal Inspection - Respiratory Exam Respiratory Exam: Clear to Auscultation Bilateral, NORMAL BREATHING PATTERN. absent: Rales, Rhonchi, Wheezes, Respiratory Distress - Cardiovascular Exam Cardiovascular Exam: Tachycardia, +S1, +S2. absent: Gallop, Rubs, Systolic Murmur - GI/Abdominal Exam GI & Abdominal Exam: Normal Bowel Sounds, Soft. absent: Tenderness - Extremities Exam Extremities exam: Positive for: normal inspection - Neurological Exam Neurological exam: Alert, CN II-XII Intact, Oriented x3 - Psychiatric Exam Psychiatric exam: Normal Affect, Normal Mood - Skin Skin Exam: Dry, Intact, Normal Color, Warm Assessment & Plan - Assessment and Plan (Free Text) Assessment: Patient is a 62 year old female with past medical history of HTN, A fib on Eliquis admitted for GIB, anemia Rapid a fib Recommendations: Stop Eliquis till GI clearance Stop Enalapril B blockers for rate control Recommend complete GI evaluation prior to discharge (Endoscopy and Colonoscopy) since patient needs Anticoagulaton for A Fib Patient had a recent ECHO and stress test: Normal Cardiac point of view patient cleared for both Colonoscopy and Endoscopy Past Patient History - Past Medical History & Family History Past Medical History?: Yes - Past Social History Smoking Status: Never Smoked - CARDIAC Hx Cardiac Disorders: Yes Hx Hypertension: Yes Hx Pacemaker: Yes - PULMONARY Hx Respiratory Disorders: No - NEUROLOGICAL Hx Neurological Disorder: No - HEENT Hx HEENT Problems: No - RENAL Hx Chronic Kidney Disease: No - ENDOCRINE/METABOLIC Hx Endocrine Disorders: No - HEMATOLOGICAL/ONCOLOGICAL Hx Blood Disorders: Yes Hx Anemia: Yes - INTEGUMENTARY Hx Dermatological Problems: No - MUSCULOSKELETAL/RHEUMATOLOGICAL Hx Musculoskeletal Disorders: No Hx Falls: No - GENITOURINARY/GYNECOLOGICAL Hx Genitourinary Disorders: No - PSYCHIATRIC Hx Psychophysiologic Disorder: No Hx Substance Use: No - SURGICAL HISTORY Hx Surgeries: Yes Hx Hysterectomy: Yes Other/Comment: lung surgery =due to small [id number] - ANESTHESIA Hx Anesthesia: Yes Hx Anesthesia Reactions: No Hx Malignant Hyperthermia: No Meds Allergies/Adverse Reactions: Allergies Allergy/AdvReac Type Severity Reaction Status Date / Time No Known Allergies Allergy Verified 10/23/18 09:05 - Medications Medications: Current Medications Carvedilol (Coreg) 3.125 mg PO BID [facility] Last Admin: 10/23/18 19:44 Dose: Not Given Famotidine (Pepcid) 20 mg IVP Q12 [facility] Last Admin: 10/23/18 21:38 Dose: 20 mg Dextrose/Sodium Chloride (Dextrose 5%/0.9% Ns 1000 Ml) 1,000 mls @ 85 mls/hr IV .[id number] ONE Stop: 10/24/18 06:52 Last Admin: 10/23/18 19:45 Dose: 85 mls/hr Results - Vital Signs Recent Vital Signs: Last Vital Signs Temp 99.3 F 10/23/18 19:52 Pulse 121 H 10/23/18 19:52 Resp 20 10/23/18 15:21 BP 99/66 L 10/23/18 19:52 Pulse Ox 95 10/23/18 20:00 - Labs Result Diagrams: 10/23/18 19:25 10/23/18 09:31 Labs: Laboratory Results - last 24 hr 10/23/18 10/23/18 10/23/18 09:31 09:31 09:31 WBC 7.9 RBC 3.38 L Hgb 8.2 L D Hct 26.5 L MCV 78.3 L D MCH 24.2 L MCHC 30.9 L RDW 17.1 H Plt Count 298 D MPV 7.9 Neut % (Auto) 62.1 Lymph % (Auto) 18.6 L [place] % (Auto) 18.8 H Eos % (Auto) 0.1 Baso % (Auto) 0.4 Neut # (Auto) 4.9 Lymph # (Auto) 1.5 [place] # (Auto) 1.5 H Eos # (Auto) 0.0 Baso # (Auto) 0.0 PT INR APTT Sodium 133 Potassium 4.1 Chloride 98 Carbon Dioxide 24 Anion Gap 15 BUN 13 Creatinine 0.6 L Est GFR ( Amer) > 60 Est GFR (Non-Af Amer) > 60 Random Glucose 167 H D Lactic Acid 1.6 Calcium 8.7 Magnesium 1.5 L Iron TIBC % Saturation Total Bilirubin 1.2 AST 44 H D ALT 13 Alkaline Phosphatase 113 Troponin I < 0.0120 Total Protein 7.6 Albumin 4.2 Globulin 3.4 Albumin/Globulin Ratio 1.2 Urine Color Urine Clarity Urine pH Ur Specific [place] Urine Protein Urine Glucose (UA) Urine Ketones Urine Blood Urine Nitrate Urine Bilirubin Urine Urobilinogen Ur Leukocyte Esterase Urine WBC (Auto) Urine RBC (Auto) Ur Squamous Epith Cells Hyaline Casts Stool Occult Blood Influenza Typ A,B (EIA) Blood Type Blood Type Confirm Antibody Screen 10/23/18 10/23/18 10/23/18 09:31 09:40 10:01 WBC RBC Hgb Hct MCV MCH MCHC RDW Plt Count MPV Neut % (Auto) Lymph % (Auto) [place] % (Auto) Eos % (Auto) Baso % (Auto) Neut # (Auto) Lymph # (Auto) [place] # (Auto) Eos # (Auto) Baso # (Auto) PT 26.6 H INR 2.4 APTT 36 H Sodium Potassium Chloride Carbon Dioxide Anion Gap BUN Creatinine Est GFR ( Amer) Est GFR (Non-Af Amer) Random Glucose Lactic Acid Calcium Magnesium Iron TIBC % Saturation Total Bilirubin AST ALT Alkaline Phosphatase Troponin I Total Protein Albumin Globulin Albumin/Globulin Ratio Urine Color Renée Urine Clarity Hazy Urine pH 5.0 Ur Specific [place] 1.019 Urine Protein 1+ H Urine Glucose (UA) Normal Urine Ketones Negative Urine Blood Negative Urine Nitrate Negative Urine Bilirubin Negative Urine Urobilinogen Normal Ur Leukocyte Esterase Trace Urine WBC (Auto) 2 Urine RBC (Auto) 1 Ur Squamous Epith Cells 2 Hyaline Casts 6-10 H Stool Occult Blood Influenza Typ A,B (EIA) Negative for flu a/b Blood Type Blood Type Confirm Antibody Screen 10/23/18 10/23/18 10/23/18 10:19 14:22 14:22 WBC RBC Hgb Hct MCV MCH MCHC RDW Plt Count MPV Neut % (Auto) Lymph % (Auto) [place] % (Auto) Eos % (Auto) Baso % (Auto) Neut # (Auto) Lymph # (Auto) [place] # (Auto) Eos # (Auto) Baso # (Auto) PT INR APTT Sodium Potassium Chloride Carbon Dioxide Anion Gap BUN Creatinine Est GFR ( Amer) Est GFR (Non-Af Amer) Random Glucose Lactic Acid Calcium Magnesium Iron TIBC % Saturation Total Bilirubin AST ALT Alkaline Phosphatase Troponin I < 0.0120 Total Protein Albumin Globulin Albumin/Globulin Ratio Urine Color Urine Clarity Urine pH Ur Specific [place] Urine Protein Urine Glucose (UA) Urine Ketones Urine Blood Urine Nitrate Urine Bilirubin Urine Urobilinogen Ur Leukocyte Esterase Urine WBC (Auto) Urine RBC (Auto) Ur Squamous Epith Cells Hyaline Casts Stool Occult Blood Positive H Influenza Typ A,B (EIA) Blood Type B POSITIVE Blood Type Confirm B POSITIVE Antibody Screen Negative 10/23/18 10/23/18 14:22 19:25 WBC 10.7 RBC 3.42 L Hgb 8.0 L Hct 26.9 L MCV 78.7 L MCH 23.4 L MCHC 29.8 L RDW 17.3 H Plt Count 333 MPV 7.7 Neut % (Auto) 59.6 Lymph % (Auto) 20.1 [place] % (Auto) 19.8 H Eos % (Auto) 0.0 Baso % (Auto) 0.5 Neut # (Auto) 6.4 Lymph # (Auto) 2.2 [place] # (Auto) 2.1 H Eos # (Auto) 0.0 Baso # (Auto) 0.1 PT INR APTT Sodium Potassium Chloride Carbon Dioxide Anion Gap BUN Creatinine Est GFR ( Amer) Est GFR (Non-Af Amer) Random Glucose Lactic Acid Calcium Magnesium Iron 29 L TIBC 483 H % Saturation 6 L Total Bilirubin AST ALT Alkaline Phosphatase Troponin I Total Protein Albumin Globulin Albumin/Globulin Ratio Urine Color Urine Clarity Urine pH Ur Specific [place] Urine Protein Urine Glucose (UA) Urine Ketones Urine Blood Urine Nitrate Urine Bilirubin Urine Urobilinogen Ur Leukocyte Esterase Urine WBC (Auto) Urine RBC (Auto) Ur Squamous Epith Cells Hyaline Casts Stool Occult Blood Influenza Typ A,B (EIA) Blood Type Blood Type Confirm Antibody Screen
[2018-10-24] MEDS ORDERED: Digoxin 500 mcg/2ml (0.5 mg/2ml) Inj IVP ONE (03:17)
--- NOTE | 2018-10-24 03:24 | CP.PCM.PCO ---
Physician Communication Note - Physician Communication Note Physician Communication Note: Pt vomitted.
[2018-10-24] MEDS ORDERED: Magnesium Sulfate 1 gm in D5W 1 GM/100 ML BAG IVPB ONE (03:30)
[2018-10-24] MEDS ORDERED: Magnesium Oxide 400 mg Tab UD PO SCH (03:30)
[2018-10-24 08:23] LABS: BASO % 0.1 % (0.0-2.0); HEMOGLOBIN 7.8 g/dL (11.0-16.0); LYMPH # 2.5 K/uL (1.0-4.3); LYMPH % 17.9 % (20.0-40.0); MEAN CORPUSCULAR HEMOGLOBIN 23.8 pg (27.0-31.0); MEAN CORPUSCULAR HGB CONC 29.5 g/dL (33.0-37.0); MEAN PLATELET VOLUME 8.3 fL (7.2-11.7); NEUT # 8.7 K/uL (1.8-7.0); NRBC % 0.1 % (0.0-2.0); PLATELET COUNT 402 K/uL (130-400); RBC 3.28 Mil/uL (3.80-5.20); RED CELL DISTRIBUTION WIDTH 17.7 % (11.5-14.5); WHITE BLOOD COUNT 14.2 K/uL (4.8-10.8)
[2018-10-24 08:45] LABS: MEAN CELL VOLUME 80.7 fL (81.0-99.0)
[2018-10-24 08:54] LABS: ALB/GLOB RATIO 1.1 (1.0-2.1); ALBUMIN 3.7 g/dL (3.5-5.0); CALCIUM 7.7 mg/dl (8.6-10.4)
--- NOTE | 2018-10-24 09:42 | CP.PCM.CON ---
History of Present Illness - History of Present Illness History of Present Illness: 62 yo female h/o HTN, AFIB, PPM- presents with weakness, near syncope, anemia, LARA. Hb has dropped 6 points from baseline. Denies hematemesis, RB, melena, fever, chills SZ. 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 absent: Fever - EENT Eyes: absent: Photophobia - Cardiovascular Cardiovascular: Lightheadedness, Palpitations. absent: Chest Pain - Respiratory Respiratory: absent: Cough, Hemoptysis, Wheezing - Gastrointestinal Gastrointestinal: absent: Abdominal Pain, Constipation, Diarrhea, Hematemesis, Hematochezia, Loose Stools, Melena, Vomiting - Genitourinary Genitourinary: absent: Hematuria - Musculoskeletal Musculoskeletal: absent: Muscle Cramps, Myalgias - Integumentary Integumentary: absent: Pruritus, Rash, Jaundice - Neurological Neurological: absent: Convulsions, Tremor - Psychiatric Psychiatric: absent: Hallucinations - Endocrine Endocrine: absent: [place] Past Patient History - Past Medical History & Family History Past Medical History?: Yes - Past Social History Smoking Status: Never Smoked - CARDIAC Hx Cardiac Disorders: Yes Hx Hypertension: Yes Hx Pacemaker: Yes - PULMONARY Hx Respiratory Disorders: No - NEUROLOGICAL Hx Neurological Disorder: No - HEENT Hx HEENT Problems: No - RENAL Hx Chronic Kidney Disease: No - ENDOCRINE/METABOLIC Hx Endocrine Disorders: No - HEMATOLOGICAL/ONCOLOGICAL Hx Blood Disorders: Yes Hx Anemia: Yes - INTEGUMENTARY Hx Dermatological Problems: No - MUSCULOSKELETAL/RHEUMATOLOGICAL Hx Musculoskeletal Disorders: No Hx Falls: No - GENITOURINARY/GYNECOLOGICAL Hx Genitourinary Disorders: No - PSYCHIATRIC Hx Psychophysiologic Disorder: No Hx Substance Use: No - SURGICAL HISTORY Hx Surgeries: Yes Hx Hysterectomy: Yes Other/Comment: lung surgery =due to small [id number] - ANESTHESIA Hx Anesthesia: Yes Hx Anesthesia Reactions: No Hx Malignant Hyperthermia: No Meds Allergies/Adverse Reactions: Allergies Allergy/AdvReac Type Severity Reaction Status Date / Time No Known Allergies Allergy Verified 10/23/18 09:05 - Medications Medications: Current Medications Carvedilol (Coreg) 3.125 mg PO BID [facility] Last Admin: 10/23/18 19:44 Dose: Not Given Famotidine (Pepcid) 20 mg IVP Q12 [facility] Last Admin: 10/23/18 21:38 Dose: 20 mg Pantoprazole Sodium 80 mg/ (Sodium Chloride) 100 mls @ 1,200 mls/hr IVP ONCE [place] Pantoprazole Sodium 80 mg/ (Sodium Chloride) 100 mls @ 10 mls/hr IVP .Q10H [facility] Physical Exam - Constitutional Appears: Non-toxic - Eye Exam Eye Exam: EOMI - Neck Exam Neck exam: Negative for: Tenderness - Respiratory Exam Respiratory Exam: Clear to Auscultation Bilateral - Cardiovascular Exam Cardiovascular Exam: Tachycardia, Irregular Rhythm - GI/Abdominal Exam GI & Abdominal Exam: Normal Bowel Sounds, Soft. absent: Distended, Guarding, Mass, Rebound, Tenderness - Extremities Exam Extremities exam: Negative for: pedal edema - Neurological Exam Neurological exam: Alert, Oriented x3 - Psychiatric Exam Psychiatric exam: Anxious Results - Vital Signs Recent Vital Signs: Last Vital Signs Temp 98.3 F 10/24/18 07:25 Pulse 110 H 10/24/18 07:25 Resp 20 10/24/18 07:25 BP 88/69 L 10/24/18 07:25 Pulse Ox 97 10/24/18 07:25 - Labs Result Diagrams: 10/24/18 08:12 10/24/18 08:12 Labs: Laboratory Results - last 24 hr 10/23/18 10/23/18 10/23/18 09:31 09:31 09:31 WBC 7.9 RBC 3.38 L Hgb 8.2 L D Hct 26.5 L MCV 78.3 L D MCH 24.2 L MCHC 30.9 L RDW 17.1 H Plt Count 298 D MPV 7.9 Neut % (Auto) 62.1 Lymph % (Auto) 18.6 L [place] % (Auto) 18.8 H Eos % (Auto) 0.1 Baso % (Auto) 0.4 Neut # (Auto) 4.9 Lymph # (Auto) 1.5 [place] # (Auto) 1.5 H Eos # (Auto) 0.0 Baso # (Auto) 0.0 PT INR APTT Sodium 133 Potassium 4.1 Chloride 98 Carbon Dioxide 24 Anion Gap 15 BUN 13 Creatinine 0.6 L Est GFR ( Amer) > 60 Est GFR (Non-Af Amer) > 60 Random Glucose 167 H D Lactic Acid 1.6 Calcium 8.7 Phosphorus Magnesium 1.5 L Iron TIBC % Saturation Total Bilirubin 1.2 AST 44 H D ALT 13 Alkaline Phosphatase 113 Troponin I < 0.0120 Total Protein 7.6 Albumin 4.2 Globulin 3.4 Albumin/Globulin Ratio 1.2 Urine Color Urine Clarity Urine pH Ur Specific [place] Urine Protein Urine Glucose (UA) Urine Ketones Urine Blood Urine Nitrate Urine Bilirubin Urine Urobilinogen Ur Leukocyte Esterase Urine WBC (Auto) Urine RBC (Auto) Ur Squamous Epith Cells Hyaline Casts Stool Occult Blood Influenza Typ A,B (EIA) Blood Type Blood Type Confirm Antibody Screen 10/23/18 10/23/18 10/23/18 09:31 09:40 10:01 WBC RBC Hgb Hct MCV MCH MCHC RDW Plt Count MPV Neut % (Auto) Lymph % (Auto) [place] % (Auto) Eos % (Auto) Baso % (Auto) Neut # (Auto) Lymph # (Auto) [place] # (Auto) Eos # (Auto) Baso # (Auto) PT 26.6 H INR 2.4 APTT 36 H Sodium Potassium Chloride Carbon Dioxide Anion Gap BUN Creatinine Est GFR ( Amer) Est GFR (Non-Af Amer) Random Glucose Lactic Acid Calcium Phosphorus Magnesium Iron TIBC % Saturation Total Bilirubin AST ALT Alkaline Phosphatase Troponin I Total Protein Albumin Globulin Albumin/Globulin Ratio Urine Color Renée Urine Clarity Hazy Urine pH 5.0 Ur Specific [place] 1.019 Urine Protein 1+ H Urine Glucose (UA) Normal Urine Ketones Negative Urine Blood Negative Urine Nitrate Negative Urine Bilirubin Negative Urine Urobilinogen Normal Ur Leukocyte Esterase Trace Urine WBC (Auto) 2 Urine RBC (Auto) 1 Ur Squamous Epith Cells 2 Hyaline Casts 6-10 H Stool Occult Blood Influenza Typ A,B (EIA) Negative for flu a/b Blood Type Blood Type Confirm Antibody Screen 10/23/18 10/23/18 10/23/18 10:19 14:22 14:22 WBC RBC Hgb Hct MCV MCH MCHC RDW Plt Count MPV Neut % (Auto) Lymph % (Auto) [place] % (Auto) Eos % (Auto) Baso % (Auto) Neut # (Auto) Lymph # (Auto) [place] # (Auto) Eos # (Auto) Baso # (Auto) PT INR APTT Sodium Potassium Chloride Carbon Dioxide Anion Gap BUN Creatinine Est GFR ( Amer) Est GFR (Non-Af Amer) Random Glucose Lactic Acid Calcium Phosphorus Magnesium Iron TIBC % Saturation Total Bilirubin AST ALT Alkaline Phosphatase Troponin I < 0.0120 Total Protein Albumin Globulin Albumin/Globulin Ratio Urine Color Urine Clarity Urine pH Ur Specific [place] Urine Protein Urine Glucose (UA) Urine Ketones Urine Blood Urine Nitrate Urine Bilirubin Urine Urobilinogen Ur Leukocyte Esterase Urine WBC (Auto) Urine RBC (Auto) Ur Squamous Epith Cells Hyaline Casts Stool Occult Blood Positive H Influenza Typ A,B (EIA) Blood Type B POSITIVE Blood Type Confirm B POSITIVE Antibody Screen Negative 10/23/18 10/23/18 10/24/18 14:22 19:25 08:12 WBC 10.7 14.2 H RBC 3.42 L 3.28 L Hgb 8.0 L 7.8 L Hct 26.9 L 26.4 L MCV 78.7 L 80.7 L D MCH 23.4 L 23.8 L MCHC 29.8 L 29.5 L RDW 17.3 H 17.7 H Plt Count 333 402 H MPV 7.7 8.3 Neut % (Auto) 59.6 61.0 Lymph % (Auto) 20.1 17.9 L [place] % (Auto) 19.8 H 21.0 H Eos % (Auto) 0.0 0.0 Baso % (Auto) 0.5 0.1 Neut # (Auto) 6.4 8.7 H Lymph # (Auto) 2.2 2.5 [place] # (Auto) 2.1 H 3.0 H Eos # (Auto) 0.0 0.0 Baso # (Auto) 0.1 0.0 PT INR APTT Sodium Potassium Chloride Carbon Dioxide Anion Gap BUN Creatinine Est GFR ( Amer) Est GFR (Non-Af Amer) Random Glucose Lactic Acid Calcium Phosphorus Magnesium Iron 29 L TIBC 483 H % Saturation 6 L Total Bilirubin AST ALT Alkaline Phosphatase Troponin I Total Protein Albumin Globulin Albumin/Globulin Ratio Urine Color Urine Clarity Urine pH Ur Specific [place] Urine Protein Urine Glucose (UA) Urine Ketones Urine Blood Urine Nitrate Urine Bilirubin Urine Urobilinogen Ur Leukocyte Esterase Urine WBC (Auto) Urine RBC (Auto) Ur Squamous Epith Cells Hyaline Casts Stool Occult Blood Influenza Typ A,B (EIA) Blood Type Blood Type Confirm Antibody Screen 10/24/18 08:12 WBC RBC Hgb Hct MCV MCH MCHC RDW Plt Count MPV Neut % (Auto) Lymph % (Auto) [place] % (Auto) Eos % (Auto) Baso % (Auto) Neut # (Auto) Lymph # (Auto) [place] # (Auto) Eos # (Auto) Baso # (Auto) PT INR APTT Sodium 131 L Potassium 4.9 Chloride 97 L Carbon Dioxide 21 L Anion Gap 18 BUN 24 H Creatinine 1.6 H Est GFR ( Amer) 39 Est GFR (Non-Af Amer) 32 Random Glucose 261 H D Lactic Acid Calcium 7.7 L Phosphorus 4.2 Magnesium 2.1 Iron TIBC % Saturation Total Bilirubin 1.4 H AST 27 ALT 13 Alkaline Phosphatase 73 Troponin I Total Protein 7.0 Albumin 3.7 Globulin 3.3 Albumin/Globulin Ratio 1.1 Urine Color Urine Clarity Urine pH Ur Specific [place] Urine Protein Urine Glucose (UA) Urine Ketones Urine Blood Urine Nitrate Urine Bilirubin Urine Urobilinogen Ur Leukocyte Esterase Urine WBC (Auto) Urine RBC (Auto) Ur Squamous Epith Cells Hyaline Casts Stool Occult Blood Influenza Typ A,B (EIA) Blood Type Blood Type Confirm Antibody Screen Assessment & Plan (1) Coagulopathy Assessment and Plan: Elev INR- unclear etiology. Rec- HEMATOLOGY CONSULT. consider vit k Status: Acute (2) Symptomatic anemia Assessment and Plan: hB LOWER THAN BASELINE. cONSIER gi BLOOD LOSS- BUT DENIED BY PT. sHE REPORTS ULCER 40 YRS AGO. Consider hematologic. Elev BUN, Cr- consider renal insuff, GI bleed, dehydration. P- PPI, EGD today. Discussed today with Dr Sultana now. Dr Sultana clears her for EGD Status: Acute (3) Atrial fibrillation Assessment and Plan: On Eliquis- being held. Cleared by DR Sultana for EGD Status: Acute (4) Hypertension Status: Chronic (5) Pacemaker Assessment and Plan: PPm in place. Status: Acute
[2018-10-24 10:06] LABS: BANDS 1 % (0-2); TOTAL CELLS COUNTED 100
[2018-10-24 10:12] LABS: LYMPHOCYTE 19 % (20-40); MONOCYTE 22 % (0-10); NEUTROPHIL 58 % (50-75)
[2018-10-24] MEDS ORDERED: Propofol 10 mg/ml Inj (20 ML) ONE (10:26)
[2018-10-24] MEDS ORDERED: Etomidate 20 mg/10ml Inj IV ONE (10:40)
--- NOTE | 2018-10-24 10:50 | CP.PCM.PN ---
Subjective - Date & Time of Evaluation Date of Evaluation: 10/24/18 Time of Evaluation: 10:47 - Subjective Subjective: Pt was brought down for endoscop. Evaluation in room before procedure showed hypotension, tachycardia, and hypoxemia- O2 sat=85%. Dr Sultana was called again bydyana Bautista and myself. It was agreed to cancel EGD and maximize medical chencho atment. There is no active melena, and no RbRe3c: Transfer to ICU, follow labs, PPI IV, Hematology consult. Objective - Vital Signs/Intake and Output Vital Signs (last 24 hours): Temp Pulse Resp BP Pulse Ox 98.3 F 117 H 20 88/69 L 97 10/24/18 07:25 10/24/18 09:29 10/24/18 07:25 10/24/18 07:25 10/24/18 07:25 Intake and Output: 10/24/18 10/24/18 06:59 18:59 Intake Total 840 Balance 840 - Medications Medications: Current Medications Carvedilol (Coreg) 3.125 mg PO BID [facility] Last Admin: 10/23/18 19:44 Dose: Not Given Famotidine (Pepcid) 20 mg IVP Q12 [facility] Last Admin: 10/23/18 21:38 Dose: 20 mg Pantoprazole Sodium 80 mg/ (Sodium Chloride) 100 mls @ 300 mls/hr IVPB ONCE [facility] Stop: 10/24/18 11:19 Pantoprazole Sodium 80 mg/ (Sodium Chloride) 100 mls @ 10 mls/hr IVP .Q10H [facility] - Labs Labs: 10/24/18 08:12 10/24/18 08:12 PT 26.6 SECONDS (9.7-12.2) H 10/23/18 10:01 INR 2.4 10/23/18 10:01 APTT 36 SECONDS (21-34) H 10/23/18 10:01 Assessment and Plan (1) Coagulopathy Status: Acute (2) Symptomatic anemia Status: Acute (3) Atrial fibrillation Assessment & Plan: above- EGD cancelled due to hypotension, hypoxemia, tqachycardia. No active GI bleed. Rec: Hold EGD, transfuse, cardiol f/u, Hematology consult for anemia and coagulopathy Status: Acute (4) Hypertension Status: Chronic (5) Pacemaker Status: Acute
[2018-10-24] MEDS ORDERED: Pantoprazole 80 MG in Sodium Chloride 0.9% 100 ML IVPB ONE (11:00)
[2018-10-24 11:04] LABS: PLATELET ESTIMATE NORMAL (NORMAL)
[2018-10-24 11:05] LABS: ANISOCYTOSIS SLIGHT; HYPOCHROMIC SLIGHT; OVALOCYTES SLIGHT; POIKILOCYTOSIS SLIGHT; POLYCHROMIC SLIGHT; TEARDROP CELLS SLIGHT
[2018-10-24 11:06] LABS: LARGE PLATELETS PRESENT
--- NOTE | 2018-10-24 11:16 | CP.PCM.CON ---
History of Present Illness - History of Present Illness History of Present Illness: chief complaint: Tachycardia HPI: 62-year-old female with a history of tachybradycardia syndrome, status post a recent pacemaker placement, B12 deficiency, history of anemia in the past, osteoporosis, history of hypertension admitted recently few days ago with a generalized weakness and headache and nausea. Upon admission to the floor patient was noticed to have rapid ventricular rate. She was also having increasing weakness. Digoxin 1 dose was given this development rep today. Patient supposed to be getting the blood transfusion. Patient was planned to have the upper endoscopy today, but because of the low blood pressure the surgery was canceled. Patient now is in the ICU. She is having no chest pain no shortness of breath. Generalized weakness noted. But she had one episode of vomiting this morning, no nausea no Past medical history: Atrial flutter fibrillation, hypertension, osteoporosis Surgical history: Hysterectomy, history of lung biopsy, also pacemaker placement recently for tachybradycardia syndrome. Social history non-smoker nonalcoholic Currently working full-time Family history: Heart disease and stroke noted in the thyroid cancer noted in the family No known drug allergy Review of system: Patient is currently having some headache. Nausea also noted. No chest pain no shortness of breath no abdominal pain, but patient is feeling hungry at this time. No leg swelling. Weakness present On examination: Vital signs otherwise stable. Tachycardia noted. Chest bilateral good air entry, no wheezing or rales noted Regular heart sounds noted Abdomen soft. No pedal edema Patient has a cold extremities Labs reviewed Hemoglobin is 7.8. Stool guaiac is positive. Elevated WBC noted. Chest x-ray is negative Urine analysis is negative Assessment and recommendation: 62-year-old female with a history of hypertension osteoporosis atrial flutter fibrillation tachybradycardia syndrome status post pacemaker recently. History of B12 deficiency. Admitted now with weakness. Screen guaiac positive, GI bleed likely. Patient also on anticoagulation. Right node is on hold. Patient will receive the blood transfusion now. Most likely hypertension secondary to tachybradycardia syndrome and a tachycardia with a GI bleed and anemia. We will closely monitor the patient in ICU. Cardiology evaluation and GI evaluation on progress. We will follow the patient Past Patient History - Past Medical History & Family History Past Medical History?: Yes - Past Social History Smoking Status: Never Smoked - CARDIAC Hx Cardiac Disorders: Yes Hx Hypertension: Yes Hx Pacemaker: Yes - PULMONARY Hx Respiratory Disorders: No - NEUROLOGICAL Hx Neurological Disorder: No - HEENT Hx HEENT Problems: No - RENAL Hx Chronic Kidney Disease: No - ENDOCRINE/METABOLIC Hx Endocrine Disorders: No - HEMATOLOGICAL/ONCOLOGICAL Hx Blood Disorders: Yes Hx Anemia: Yes - INTEGUMENTARY Hx Dermatological Problems: No - MUSCULOSKELETAL/RHEUMATOLOGICAL Hx Musculoskeletal Disorders: No Hx Falls: No - GENITOURINARY/GYNECOLOGICAL Hx Genitourinary Disorders: No - PSYCHIATRIC Hx Psychophysiologic Disorder: No Hx Substance Use: No - SURGICAL HISTORY Hx Surgeries: Yes Hx Hysterectomy: Yes Other/Comment: lung surgery =due to small [id number] - ANESTHESIA Hx Anesthesia: Yes Hx Anesthesia Reactions: No Hx Malignant Hyperthermia: No Meds Allergies/Adverse Reactions: Allergies Allergy/AdvReac Type Severity Reaction Status Date / Time No Known Allergies Allergy Verified 10/23/18 09:05 - Medications Medications: Current Medications Carvedilol (Coreg) 3.125 mg PO BID [facility] Last Admin: 10/23/18 19:44 Dose: Not Given Pantoprazole Sodium 80 mg/ (Sodium Chloride) 100 mls @ 300 mls/hr IVPB ONCE ONE Stop: 10/24/18 11:19 Pantoprazole Sodium 80 mg/ (Sodium Chloride) 100 mls @ 10 mls/hr IVPB .Q10H [facility] Results - Vital Signs Recent Vital Signs: Last Vital Signs Temp 98.3 F 10/24/18 07:25 Pulse 120 H 10/24/18 11:10 Resp 30 H 10/24/18 11:10 BP 92/66 L 10/24/18 11:10 Pulse Ox 96 10/24/18 11:10 - Labs Result Diagrams: 10/24/18 08:12 10/24/18 08:12 Labs: Laboratory Results - last 24 hr 10/23/18 10/23/18 10/23/18 14:22 14:22 14:22 WBC RBC Hgb Hct MCV MCH MCHC RDW Plt Count MPV Neut % (Auto) Lymph % (Auto) [place] % (Auto) Eos % (Auto) Baso % (Auto) Neut # (Auto) Lymph # (Auto) [place] # (Auto) Eos # (Auto) Baso # (Auto) Neutrophils % (Manual) Band Neutrophils % Lymphocytes % (Manual) Monocytes % (Manual) Platelet Estimate Large Platelets Polychromasia Hypochromasia (manual) Poikilocytosis (manual Anisocytosis (manual) Tear Drop Cells Ovalocytes Sodium Potassium Chloride Carbon Dioxide Anion Gap BUN Creatinine Est GFR ( Amer) Est GFR (Non-Af Amer) Random Glucose Calcium Phosphorus Magnesium Iron 29 L TIBC 483 H % Saturation 6 L Total Bilirubin AST ALT Alkaline Phosphatase Troponin I < 0.0120 Total Protein Albumin Globulin Albumin/Globulin Ratio Blood Type B POSITIVE Blood Type Confirm B POSITIVE Antibody Screen Negative 10/23/18 10/24/18 10/24/18 19:25 08:12 08:12 WBC 10.7 14.2 H RBC 3.42 L 3.28 L Hgb 8.0 L 7.8 L Hct 26.9 L 26.4 L MCV 78.7 L 80.7 L D MCH 23.4 L 23.8 L MCHC 29.8 L 29.5 L RDW 17.3 H 17.7 H Plt Count 333 402 H MPV 7.7 8.3 Neut % (Auto) 59.6 61.0 Lymph % (Auto) 20.1 17.9 L [place] % (Auto) 19.8 H 21.0 H Eos % (Auto) 0.0 0.0 Baso % (Auto) 0.5 0.1 Neut # (Auto) 6.4 8.7 H Lymph # (Auto) 2.2 2.5 [place] # (Auto) 2.1 H 3.0 H Eos # (Auto) 0.0 0.0 Baso # (Auto) 0.1 0.0 Neutrophils % (Manual) 58 Band Neutrophils % 1 Lymphocytes % (Manual) 19 L Monocytes % (Manual) 22 H Platelet Estimate Normal Large Platelets Present Polychromasia Slight Hypochromasia (manual) Slight Poikilocytosis (manual Slight Anisocytosis (manual) Slight Tear Drop Cells Slight Ovalocytes Slight Sodium 131 L Potassium 4.9 Chloride 97 L Carbon Dioxide 21 L Anion Gap 18 BUN 24 H Creatinine 1.6 H Est GFR ( Amer) 39 Est GFR (Non-Af Amer) 32 Random Glucose 261 H D Calcium 7.7 L Phosphorus 4.2 Magnesium 2.1 Iron TIBC % Saturation Total Bilirubin 1.4 H AST 27 ALT 13 Alkaline Phosphatase 73 Troponin I Total Protein 7.0 Albumin 3.7 Globulin 3.3 Albumin/Globulin Ratio 1.1 Blood Type Blood Type Confirm Antibody Screen
[2018-10-24] MEDS ORDERED: Pantoprazole 80 MG in Sodium Chloride 0.9% 100 ML IVP SCH (11:30)
[2018-10-24] MEDS: Sodium Chloride 0.9% 1,000 ML IV SCH (11:31)
[2018-10-24] MEDS: Pantoprazole 80 MG in Sodium Chloride 0.9% 100 ML IVPB SCH ×3 (11:31→22:58)
--- NOTE | 2018-10-24 18:57 | CP.PCM.PN ---
Subjective - Date & Time of Evaluation Date of Evaluation: 10/24/18 Time of Evaluation: 15:15 - Subjective Subjective: Patint underwent to a EGD during the procedure the patient become hypotensive and was transfer to ICU at the present time she is receiving transfusions to stabilize the Hb levels. Still tachy, with severe weakness and debility. Objective - Vital Signs/Intake and Output Vital Signs (last 24 hours): Temp Pulse Resp BP Pulse Ox 99.5 F 108 H 31 H 100/71 93 L 10/24/18 17:00 10/24/18 18:10 10/24/18 18:10 10/24/18 18:01 10/24/18 18:10 Intake and Output: 10/24/18 10/24/18 11:59 23:59 Intake Total 170 2035 Output Total 0 900 Balance 170 1135 - Medications Medications: Current Medications Carvedilol (Coreg) 3.125 mg PO BID [facility] Last Admin: 10/23/18 19:44 Dose: Not Given Pantoprazole Sodium 80 mg/ (Sodium Chloride) 100 mls @ 10 mls/hr IVPB .Q10H [facility] Last Admin: 10/24/18 11:31 Dose: 10 mls/hr Sodium Chloride (Sodium Chloride 0.9%) 1,000 mls @ 50 mls/hr IV .Q20H [facility] Last Admin: 10/24/18 11:31 Dose: 50 mls/hr - Labs Labs: 10/24/18 08:12 10/24/18 08:12 PT 26.6 SECONDS (9.7-12.2) H 10/23/18 10:01 INR 2.4 10/23/18 10:01 APTT 36 SECONDS (21-34) H 10/23/18 10:01 - Constitutional Appears: Chronically Ill - Head Exam Head Exam: ATRAUMATIC, NORMAL INSPECTION, NORMOCEPHALIC - Eye Exam Eye Exam: Normal appearance, PERRL Pupil Exam: NORMAL ACCOMODATION - ENT Exam ENT Exam: Mucous Membranes Dry - Neck Exam Neck Exam: Full ROM - Respiratory Exam Respiratory Exam: Decreased Breath Sounds - Cardiovascular Exam Cardiovascular Exam: Tachycardia, REGULAR RHYTHM, +S1, +S2 - GI/Abdominal Exam GI & Abdominal Exam: Normal Bowel Sounds - Extremities Exam Extremities Exam: Normal Inspection - Neurological Exam Neurological Exam: Alert, Awake, Oriented x3 - Psychiatric Exam Psychiatric exam: Flat Affect - Skin Skin Exam: Pallor Assessment and Plan (1) Rapid atrial fibrillation Status: Acute (2) Symptomatic anemia Status: Acute (3) Atrial fibrillation Status: Acute (4) Hypertensive cardiovascular disease Status: Acute (5) Wide-complex tachycardia Status: Acute (6) Hypertension Status: Chronic - Assessment and Plan (Free Text) Plan: as per orders
--- NOTE | 2018-10-24 19:43 | CP.PCM.PN ---
Subjective - Date & Time of Evaluation Date of Evaluation: 10/24/18 Time of Evaluation: 13:05 - Subjective Subjective: Patient was hypotensive in Endo room. Oxygen sats were low. Tachycardiac Patient was c/o weakness Endoscopy cancelled Transferred to ICU for blood transfusion and close mentoring Procedure rescheduled for tomorrow Review of Systems - Constitutional Constitutional: absent: Anorexia, Chills, Fatigue, Fever, Headache, Weakness - EENT Eyes: absent: Change in Vision Ears: absent: Decreased Hearing, Abnormal Hearing - Cardiovascular Cardiovascular: absent: Chest Pain, Chest Pain at Rest, Chest Pain with Activity, Diaphoresis, Dyspnea, Dyspnea on Exertion, Irregular Heart Rhythm, Lightheadedness, Palpitations, Rapid Heart Rate, Slow Heart Rate, Syncope - Respiratory Respiratory: absent: Cough, Dyspnea, Hemoptysis, Dyspnea on Exertion - Gastrointestinal Gastrointestinal: absent: Abdominal Pain, Change in Bowel Habits, Change in Stool Character, Coffee Ground Emesis, Constipation, Diarrhea - Genitourinary Genitourinary: absent: Difficulty Urinating, Dysuria, Hematuria - Musculoskeletal Musculoskeletal: absent: Arthralgias, Joint Swelling - Neurological Neurological: absent: Abnormal Hearing, Confusion, Dizziness, Numbness, Headaches, Syncope - Psychiatric Psychiatric: absent: Behavioral Changes, Confusion - Endocrine Endocrine: absent: Change in Body Appearance, Excessive Sweating, Palpitations, Polyuria Physical Exam - Constitutional Appears: Well, Non-toxic, No Acute Distress - Head Exam Head Exam: ATRAUMATIC, NORMOCEPHALIC - Eye Exam Eye Exam: EOMI, Normal appearance - ENT Exam ENT Exam: Mucous Membranes Moist - Neck Exam Neck exam: Positive for: Normal Inspection - Respiratory Exam Respiratory Exam: Clear to Auscultation Bilateral, NORMAL BREATHING PATTERN. absent: Rales, Rhonchi, Wheezes, Respiratory Distress - Cardiovascular Exam Cardiovascular Exam: Tachycardia, +S1, +S2. absent: Gallop, Rubs, Systolic Murmur - GI/Abdominal Exam GI & Abdominal Exam: Normal Bowel Sounds, Soft. absent: Tenderness - Extremities Exam Extremities exam: Positive for: normal inspection - Neurological Exam Neurological exam: Alert, CN II-XII Intact, Oriented x3 - Psychiatric Exam Psychiatric exam: Normal Affect, Normal Mood - Skin Skin Exam: Dry, Intact, Normal Color, Warm Assessment & Plan - Assessment and Plan (Free Text) Assessment: Patient is a 62 year old female with past medical history of HTN, A fib on E liquis admitted for GIB, anemia Rapid a fib Patient hypotensive IVF and Blood transfusion started Plan to give Digoxin if HR goes up Plan d/w the patient and her Total Critical Care time spent: 48 minutes Objective - Vital Signs/Intake and Output Vital Signs (last 24 hours): Temp Pulse Resp BP Pulse Ox 99.6 F 109 H 18 104/51 L 95 10/24/18 19:13 10/24/18 19:13 10/24/18 19:13 10/24/18 19:13 10/24/18 19:00 Intake and Output: 10/24/18 10/25/18 18:59 06:59 Intake Total 1880 760 Output Total 0 Balance 1880 760 - Medications Medications: Current Medications Carvedilol (Coreg) 3.125 mg PO BID [facility] Last Admin: 10/23/18 19:44 Dose: Not Given Pantoprazole Sodium 80 mg/ (Sodium Chloride) 100 mls @ 10 mls/hr IVPB .Q10H [facility] Last Admin: 10/24/18 11:31 Dose: 10 mls/hr Sodium Chloride (Sodium Chloride 0.9%) 1,000 mls @ 50 mls/hr IV .Q20H [facility] Last Admin: 10/24/18 11:31 Dose: 50 mls/hr - Labs Labs: 10/24/18 08:12 10/24/18 08:12 PT 26.6 SECONDS (9.7-12.2) H 10/23/18 10:01 INR 2.4 10/23/18 10:01 APTT 36 SECONDS (21-34) H 10/23/18 10:01
[2018-10-24 21:35] LABS: MEAN CORPUSCULAR HEMOGLOBIN 25.6 pg (27.0-31.0); MEAN CORPUSCULAR HGB CONC 30.5 g/dL (33.0-37.0); MEAN PLATELET VOLUME 8.2 fL (7.2-11.7); RBC 3.92 Mil/uL (3.80-5.20); RED CELL DISTRIBUTION WIDTH 17.3 % (11.5-14.5); WHITE BLOOD COUNT 17.8 K/uL (4.8-10.8)
[2018-10-24 21:51] LABS: MEAN CELL VOLUME 83.9 fL (81.0-99.0)
[2018-10-25 06:31] LABS: HEMOGLOBIN 10.2 g/dL (11.0-16.0); MEAN CORPUSCULAR HEMOGLOBIN 24.8 pg (27.0-31.0); MEAN CORPUSCULAR HGB CONC 30.6 g/dL (33.0-37.0); MEAN PLATELET VOLUME 8.3 fL (7.2-11.7); PLATELET COUNT 322 K/uL (130-400); RBC 4.13 Mil/uL (3.80-5.20); RED CELL DISTRIBUTION WIDTH 17.6 % (11.5-14.5); WHITE BLOOD COUNT 20.6 K/uL (4.8-10.8)
[2018-10-25 06:32] LABS: INR 1.8; PROTHROMBIN TIME 19.7 SECONDS (9.7-12.2)
[2018-10-25 06:42] LABS: MEAN CELL VOLUME 81.1 fL (81.0-99.0)
--- NOTE | 2018-10-25 07:15 | CP.CCUPN ---
CCU Subjective - Physician Review Subjective (Free Text): Critical care progress note for Dr. Alfaro. Patient seen and examined at bedside. No acute events overnight. Patient was supposed to go for endoscopy 10/24; however unable due to hypotension. This AM patient states she feels fine; just slightly nauseas. Patient denies headaches, vision changes, chest pain, abdominal pain, fevers, chills, vomiting. CCU Objective - Vital Signs / Intake & Output Vital Signs (Last 4 hours): Vital Signs Temp Pulse Resp BP Pulse Ox 10/25/18 05:01 94 H 21 113/72 98 10/25/18 05:00 93 H 22 98 10/25/18 04:46 94 H 22 107/76 97 10/25/18 04:31 94 H 21 97/70 L 97 10/25/18 04:16 95 H 21 109/71 95 10/25/18 04:04 103 H 32 H 108/73 94 L 10/25/18 04:00 99 F 101 H 28 H 108/73 97 10/25/18 03:46 100 H 29 H 114/84 96 10/25/18 03:31 99 H 25 H 112/83 96 10/25/18 03:16 102 H 28 H 114/72 97 Intake and Output (Last 8hrs): Intake & Output 10/24/18 10/25/18 10/25/18 22:59 06:59 14:59 Intake Total 2525 590 Output Total 0 550 Balance 2525 40 Weight 139 lb 0.231 oz Intake: Intake, IV Amount 490 490 Left AC Distal Port 80 80 Left Antecubital 410 410 Left Forearm 0 0 Oral 980 100 Blood Product 975 Red Blood Cells Cpd As1 325 Lr Unit [id number] Red Blood Cells Cpd As1 325 Lr Unit [id number] Other 80 Red Blood Cells Cpd As1 50 Lr Unit [id number] Red Blood Cells Cpd As1 30 Lr Unit [id number] Output: Urine 0 550 Urine, Voided 0 550 Other: # Voids Urine, Voided 1 - Physical Exam Head: Positive for: Atraumatic, Normocephalic Pupils: Positive for: PERRL Extroacular Muscles: Positive for: EOMI Conjunctiva: Positive for: Normal Mouth: Positive for: Moist Mucous Membranes Neck: Positive for: Normal Range of Motion, JVD Respiratory/Chest: Positive for: Clear to Auscultation, Good Air Exchange. Negative for: Accessory Muscle Use Cardiovascular: Positive for: Murmurs, Normal S1, S2, Other Abdomen: Positive for: Normal Bowel Sounds. Negative for: Tenderness, Distention, Guarding Upper Extremity: Positive for: Normal Inspection. Negative for: Edema Lower Extremity: Positive for: Normal Inspection. Negative for: Edema Neurological: Positive for: GCS=15 Skin: Positive for: Warm, Dry, Rashes, Normal Color - Medications Active Medications: Active Medications Generic Name Dose Route Start Last Admin Trade Name Freq PRN Reason Stop Dose Admin Carvedilol 3.125 mg 10/23/18 19:45 10/23/18 19:44 Coreg PO Not Given BID [facility] Pantoprazole Sodium 80 mg/ 100 mls @ 10 mls/hr 10/24/18 11:30 10/24/18 22:58 Sodium Chloride IVPB 10 mls/hr .Q10H [facility] Administration 8 MG/HR Sodium Chloride 1,000 mls @ 50 mls/hr 10/24/18 11:30 10/24/18 11:31 Sodium Chloride 0.9% IV 50 mls/hr .Q20H [facility] Administration - Patient Studies Lab Studies: Lab Studies 10/25/18 10/25/18 10/24/18 Range/Units 06:15 06:15 21:31 WBC 20.6 H 17.8 H (4.8-10.8) K/uL RBC 4.13 3.92 (3.80-5.20) Mil/uL Hgb 10.2 L 10.0 L D (11.0-16.0) g/dL Hct 33.5 L 32.9 L (34.0-47.0) % MCV 81.1 D 83.9 D (81.0-99.0) fL MCH 24.8 L 25.6 L (27.0-31.0) pg MCHC 30.6 L 30.5 L (33.0-37.0) g/dL RDW 17.6 H 17.3 H (11.5-14.5) % Plt Count 322 283 D (130-400) K/uL MPV 8.3 8.2 (7.2-11.7) fL Neut % (Auto) (50.0-75.0) % Lymph % (Auto) (20.0-40.0) % [place] % (Auto) (0.0-10.0) % Eos % (Auto) (0.0-4.0) % Baso % (Auto) (0.0-2.0) % Neut # (Auto) (1.8-7.0) K/uL Lymph # (Auto) (1.0-4.3) K/uL [place] # (Auto) (0.0-0.8) K/uL Eos # (Auto) (0.0-0.7) K/uL Baso # (Auto) (0.0-0.2) K/uL Neutrophils % (Manual) (50-75) % Band Neutrophils % (0-2) % Lymphocytes % (Manual) (20-40) % Monocytes % (Manual) (0-10) % Platelet Estimate (NORMAL) Large Platelets Polychromasia Hypochromasia (manual) Poikilocytosis (manual Anisocytosis (manual) Tear Drop Cells Ovalocytes PT 19.7 H D (9.7-12.2) SECONDS INR 1.8 D APTT 29 D (21-34) SECONDS Sodium (132-148) mmol/L Potassium (3.6-5.2) mmol/L Chloride (98-107) mmol/L Carbon Dioxide (22-30) mmol/L Anion Gap (10-20) BUN (7-17) mg/dL Creatinine (0.7-1.2) mg/dL Est GFR ( Amer) Est GFR (Non-Af Amer) Random Glucose (65-105) mg/dL Calcium (8.6-10.4) mg/dl Phosphorus (2.5-4.5) mg/dL Magnesium (1.6-2.3) mg/dL Total Bilirubin (0.2-1.3) mg/dL AST (14-36) U/L ALT (9-52) U/L Alkaline Phosphatase (38-126) U/L Total Protein (6.3-8.3) g/dL Albumin (3.5-5.0) g/dL Globulin (2.2-3.9) gm/dL Albumin/Globulin Ratio (1.0-2.1) Blood Type Blood Type Confirm Antibody Screen 10/24/18 10/24/18 10/23/18 Range/Units 08:12 08:12 14:22 WBC 14.2 H (4.8-10.8) K/uL RBC 3.28 L (3.80-5.20) Mil/uL Hgb 7.8 L (11.0-16.0) g/dL Hct 26.4 L (34.0-47.0) % MCV 80.7 L D (81.0-99.0) fL MCH 23.8 L (27.0-31.0) pg MCHC 29.5 L (33.0-37.0) g/dL RDW 17.7 H (11.5-14.5) % Plt Count 402 H (130-400) K/uL MPV 8.3 (7.2-11.7) fL Neut % (Auto) 61.0 (50.0-75.0) % Lymph % (Auto) 17.9 L (20.0-40.0) % [place] % (Auto) 21.0 H (0.0-10.0) % Eos % (Auto) 0.0 (0.0-4.0) % Baso % (Auto) 0.1 (0.0-2.0) % Neut # (Auto) 8.7 H (1.8-7.0) K/uL Lymph # (Auto) 2.5 (1.0-4.3) K/uL [place] # (Auto) 3.0 H (0.0-0.8) K/uL Eos # (Auto) 0.0 (0.0-0.7) K/uL Baso # (Auto) 0.0 (0.0-0.2) K/uL Neutrophils % (Manual) 58 (50-75) % Band Neutrophils % 1 (0-2) % Lymphocytes % (Manual) 19 L (20-40) % Monocytes % (Manual) 22 H (0-10) % Platelet Estimate Normal (NORMAL) Large Platelets Present Polychromasia Slight Hypochromasia (manual) Slight Poikilocytosis (manual Slight Anisocytosis (manual) Slight Tear Drop Cells Slight Ovalocytes Slight PT (9.7-12.2) SECONDS INR APTT (21-34) SECONDS Sodium 131 L (132-148) mmol/L Potassium 4.9 (3.6-5.2) mmol/L Chloride 97 L (98-107) mmol/L Carbon Dioxide 21 L (22-30) mmol/L Anion Gap 18 (10-20) BUN 24 H (7-17) mg/dL Creatinine 1.6 H (0.7-1.2) mg/dL Est GFR ( Amer) 39 Est GFR (Non-Af Amer) 32 Random Glucose 261 H D (65-105) mg/dL Calcium 7.7 L (8.6-10.4) mg/dl Phosphorus 4.2 (2.5-4.5) mg/dL Magnesium 2.1 (1.6-2.3) mg/dL Total Bilirubin 1.4 H (0.2-1.3) mg/dL AST 27 (14-36) U/L ALT 13 (9-52) U/L Alkaline Phosphatase 73 (38-126) U/L Total Protein 7.0 (6.3-8.3) g/dL Albumin 3.7 (3.5-5.0) g/dL Globulin 3.3 (2.2-3.9) gm/dL Albumin/Globulin Ratio 1.1 (1.0-2.1) Blood Type B POSITIVE Blood Type Confirm B POSITIVE Antibody Screen Negative Laboratory Results - last 24 hr 10/23/18 10/24/18 10/24/18 14:22 08:12 08:12 WBC 14.2 H RBC 3.28 L Hgb 7.8 L Hct 26.4 L MCV 80.7 L D MCH 23.8 L MCHC 29.5 L RDW 17.7 H Plt Count 402 H MPV 8.3 Neut % (Auto) 61.0 Lymph % (Auto) 17.9 L [place] % (Auto) 21.0 H Eos % (Auto) 0.0 Baso % (Auto) 0.1 Neut # (Auto) 8.7 H Lymph # (Auto) 2.5 [place] # (Auto) 3.0 H Eos # (Auto) 0.0 Baso # (Auto) 0.0 Neutrophils % (Manual) 58 Band Neutrophils % 1 Lymphocytes % (Manual) 19 L Monocytes % (Manual) 22 H Platelet Estimate Normal Large Platelets Present Polychromasia Slight Hypochromasia (manual) Slight Poikilocytosis (manual Slight Anisocytosis (manual) Slight Tear Drop Cells Slight Ovalocytes Slight PT INR APTT Sodium 131 L Potassium 4.9 Chloride 97 L Carbon Dioxide 21 L Anion Gap 18 BUN 24 H Creatinine 1.6 H Est GFR ( Amer) 39 Est GFR (Non-Af Amer) 32 Random Glucose 261 H D Calcium 7.7 L Phosphorus 4.2 Magnesium 2.1 Total Bilirubin 1.4 H AST 27 ALT 13 Alkaline Phosphatase 73 Total Protein 7.0 Albumin 3.7 Globulin 3.3 Albumin/Globulin Ratio 1.1 Blood Type B POSITIVE Blood Type Confirm B POSITIVE Antibody Screen Negative 10/24/18 10/25/18 10/25/18 21:31 06:15 06:15 WBC 17.8 H 20.6 H RBC 3.92 4.13 Hgb 10.0 L D 10.2 L Hct 32.9 L 33.5 L MCV 83.9 D 81.1 D MCH 25.6 L 24.8 L MCHC 30.5 L 30.6 L RDW 17.3 H 17.6 H Plt Count 283 D 322 MPV 8.2 8.3 Neut % (Auto) Lymph % (Auto) [place] % (Auto) Eos % (Auto) Baso % (Auto) Neut # (Auto) Lymph # (Auto) [place] # (Auto) Eos # (Auto) Baso # (Auto) Neutrophils % (Manual) Band Neutrophils % Lymphocytes % (Manual) Monocytes % (Manual) Platelet Estimate Large Platelets Polychromasia Hypochromasia (manual) Poikilocytosis (manual Anisocytosis (manual) Tear Drop Cells Ovalocytes PT 19.7 H D INR 1.8 D APTT 29 D Sodium Potassium Chloride Carbon Dioxide Anion Gap BUN Creatinine Est GFR ( Amer) Est GFR (Non-Af Amer) Random Glucose Calcium Phosphorus Magnesium Total Bilirubin AST ALT Alkaline Phosphatase Total Protein Albumin Globulin Albumin/Globulin Ratio Blood Type Blood Type Confirm Antibody Screen Review of Systems - Constitutional Constitutional: absent: Fever, Chills, Sweats, Weakness, Malaise - EENT Eyes: UNREMARKABLE. absent: Change in Vision, Itchy Eyes Ears: UNREMARKABLE Nose/Mouth/Throat: UNREMARKABLE. absent: Sinus Pressure, Bleeding Gums - Cardiovascular Cardiovascular: absent: Chest Pain, Chest Pain at Rest - Respiratory Respiratory: absent: Dyspnea, Snoring - Gastrointestinal Gastrointestinal: Nausea. absent: Bloating, Dyspepsia - Musculoskeletal Musculoskeletal: UNREMARKABLE. absent: Joint Swelling, Muscle Weakness - Integumentary Integumentary: UNREMARKABLE - Neurological Neurological: absent: Abnormal Speech, Headaches Critical Care Progress Note - Extremities/Vascular Does the Patient have a Central Venous Catheter?: No - Nutrition Nutrition: Nutrition Category Date Time Status NPO Diet [DIET] Diets 10/25/18 Breakfast Active Assessment/Plan - Assessment and Plan (Free Text) Assessment: 62 F w/ PMhx of Afib & pacemaker ( on eliquis at home) currently admited to ICU for monitoring, had episode of afib w/ RVR, large pericardial effusion s/p POD # 0 for pericardial winodw w/ CARMEN drain 1) pericardial tamponade 2) afib RVR 3) aemia Plan: Neuro - A&O x3 Cardio - s/p pericardial window - continue to monitor - can restart home HTN meds pending BP - F/u biopsy Resp - vital wnl - continue to monitor GI - NPO after midnight for EGD Heme - H/H stable s/p 2 units PRBCs - WBC trending up - likely 2/2 to pericardial effusion - F/u [id number], lyme, rehumatoid facotr, Quantiforon gold - Ceftriaxone 2g daily Renal - worsening GENE - likely 2/2 to pericardial effusion - trend AM labs - freely voiding PPx: - GI: protonix - DVT: VTE contraidicated due to GI bleed
[2018-10-25] MEDS: Sodium Chloride 0.9% 1,000 ML IV SCH (08:18)
[2018-10-25] MEDS: Pantoprazole 80 MG in Sodium Chloride 0.9% 100 ML IVPB SCH ×3 (08:18→19:30)
[2018-10-25 09:18] LABS: ALB/GLOB RATIO 1.1 (1.0-2.1); ALBUMIN 3.7 g/dL (3.5-5.0); CALCIUM 7.4 mg/dl (8.6-10.4)
[2018-10-25] MEDS ORDERED: Digoxin 500 mcg/2ml (0.5 mg/2ml) Inj IVP ONE (13:39)
--- NOTE | 2018-10-25 14:23 | CARD ---
APPROVED REPORT Date of service: 10/23/2018 EKG Measurement Heart [id number] <Conclusion> Sinus tachycardia Left axis deviation Left bundle branch block Abnormal ECG
--- NOTE | 2018-10-25 15:26 | RAD ---
HISTORY: chf COMPARISON: Chest x-ray performed 10/23/18 TECHNIQUE: Chest, one view. FINDINGS: Examination limited by habitus and hypoinflation. LUNGS: Small left pleural effusion and/or atelectasis/infiltrate. Trace right pleural effusion. Right basilar atelectasis. No definite pneumothorax. Please note that chest x-ray has limited sensitivity for the detection of pulmonary masses. CARDIOVASCULAR: Cardiomegaly. Atherosclerotic calcifications of the aorta. Left-sided dual lead pacemaker. OSSEOUS STRUCTURES: Osseous demineralization. Degenerative changes. VISUALIZED UPPER ABDOMEN: Unremarkable. OTHER FINDINGS: None. IMPRESSION: Cardiomegaly. Left-sided dual lead pacemaker. Small left pleural effusion and/or atelectasis/infiltrate. Trace right pleural effusion. Right basilar atelectasis.
--- NOTE | 2018-10-25 15:42 | CP.PCM.PN ---
Subjective - Date & Time of Evaluation Date of Evaluation: 10/25/18 Time of Evaluation: 15:40 - Subjective Subjective: F/u anemia, on NOAC for AFib Events noted, EGD cancelled yesterday Today not hypoxic, and tolerated liquids, however placed on Cardizem drip due to tachycardia. Also Creat rising Not symptomatic of dyspnea, abdominal pain or overt GI bleeding Objective - Vital Signs/Intake and Output Vital Signs (last 24 hours): Temp Pulse Resp BP Pulse Ox 98.9 F 142 H 35 H 113/68 92 L 10/25/18 12:00 10/25/18 14:15 10/25/18 14:15 10/25/18 14:15 10/25/18 14:15 Intake and Output: 10/25/18 10/25/18 06:59 18:59 Intake Total 1970 920 Output Total 550 Balance 1420 920 - Medications Medications: Current Medications Carvedilol (Coreg) 3.125 mg PO BID [facility] Last Admin: 10/23/18 19:44 Dose: Not Given Pantoprazole Sodium 80 mg/ (Sodium Chloride) 100 mls @ 10 mls/hr IVPB .Q10H [facility] Last Admin: 10/25/18 08:18 Dose: 10 mls/hr Diltiazem HCl 125 mg/ Sodium (Chloride) 125 mls @ 5 mls/hr IV .Q24H [facility]; Protocol Last Admin: 10/25/18 14:27 Dose: 5 mg/hr, 5 mls/hr - Labs Labs: 10/25/18 06:15 10/25/18 08:44 PT 19.7 SECONDS (9.7-12.2) H D 10/25/18 06:15 INR 1.8 D 10/25/18 06:15 APTT 29 SECONDS (21-34) D 10/25/18 06:15 - Constitutional Appears: Well, No Acute Distress - Head Exam Head Exam: NORMOCEPHALIC - Respiratory Exam Respiratory Exam: NORMAL BREATHING PATTERN - Cardiovascular Exam Cardiovascular Exam: REGULAR RHYTHM - GI/Abdominal Exam GI & Abdominal Exam: Soft. absent: Tenderness Assessment and Plan (1) Anemia Assessment & Plan: Decline in Hgb from several months ago, with low MCV and occult blood in stool. On antiplatelet agents for AFib Should have EGD if/when cardiologically cleared Will tentatively reschedule EGD for tomorrow Status: Acute (2) Rapid atrial fibrillation Assessment & Plan: managed by embedded software development engineer Status: Acute
--- NOTE | 2018-10-25 16:13 | CT ---
PROCEDURE: CT Abdomen and Pelvis without Oral or IV contrast. HISTORY: abd pain COMPARISON: None available. TECHNIQUE: Contiguous axial images of the abdomen and pelvis. No oral or IV contrast administered. Coronal and Sagittal reformats generated and reviewed. Radiation dose: Total exam DLP = 1036.45 mGy-cm. This CT exam was performed using one or more of the following dose reduction techniques: Automated exposure control, adjustment of the mA and/or kV according to patient size, and/or use of iterative reconstruction technique. FINDINGS: There is limited evaluation of the solid organs without the administration of IV contrast. LOWER THORAX: Moderate-sized bilateral pleural effusions and associated consolidations. No visible pneumothorax. Moderate-sized high density pericardial effusion. Partially imaged pacer wires. LIVER: Small perihepatic ascites. Nodular hepatic contour. GALLBLADDER AND BILE DUCTS: Gallbladder wall thickening/edema. No calcified gallstones appreciated. PANCREAS: Unremarkable unenhanced appearance. SPLEEN: Unremarkable unenhanced appearance. ADRENALS: Unremarkable unenhanced appearance. KIDNEYS AND URETERS: No hydronephrosis or obstructing renal calculus. BLADDER: The urinary bladder appears unremarkable. REPRODUCTIVE: Uterus is not identified presumably due to hysterectomy. APPENDIX: The appendix appears within normal limits of caliber. BOWEL: The stomach is nondistended. Lack of oral contrast limits evaluation for bowel pathology. The bowel loops appear within normal limits of caliber without evidence of intestinal obstruction. Mucosal thickening of the right colon; correlate clinically for history of colitis. PERITONEUM: Small perihepatic ascites. Small pelvic free fluid. No definite free air. LYMPH NODES: Subcentimeter mesenteric and retroperitoneal lymph nodes, nonspecific. VASCULATURE: Atherosclerotic calcifications of the aorta. No aortic aneurysm. BONES: Osseous demineralization. Degenerative changes. L2, L4, and L5 vertebral body loss of height consistent with compression fractures, age indeterminate. OTHER FINDINGS: None. IMPRESSION: Moderate-sized high density pericardial effusion. Recommend further evaluation with echocardiogram. Moderate-sized bilateral pleural effusions and associated consolidations. Small perihepatic ascites. Nodular hepatic contour; correlate for cirrhosis. Gallbladder wall thickening/pericholecystic edema. Marked mucosal thickening of the right colon; correlate for history of colitis. Small perihepatic ascites. Small pelvic free fluid. Sub cm mesenteric and retroperitoneal lymph nodes, nonspecific. L2-L4, and L5 vertebral body loss of height consistent with age indeterminate compression fractures. Additional findings as above. Findings discussed with SANDRA Dickens on 10/25/18 at 3:56 p.m.
[2018-10-25 16:55] LABS: INR 1.8; PROTHROMBIN TIME 19.5 SECONDS (9.7-12.2)
[2018-10-25 16:58] LABS: SQUAMOUS EPITHIAL 2 /hpf (0-5); URINE BACTERIA RARE (<OCC); URINE BILIRUBIN NEGATIVE (NEGATIVE); URINE BLOOD NEGATIVE (NEGATIVE); URINE CLARITY Hazy (Clear); URINE GLUCOSE (UA) NORMAL (Normal); URINE HYALINE CAST >20 /lpf (0-2); URINE LEUKOCYTE ESTERASE 2+ Leu/uL (Negative); URINE PROTEIN 2+ mg/dL (NEGATIVE); URINE UROBILINOGEN NORMAL mg/dL (0.2-1.0)
[2018-10-25 16:59] LABS: ALB/GLOB RATIO 1.2 (1.0-2.1); ALBUMIN 3.8 g/dL (3.5-5.0); CALCIUM 7.4 mg/dl (8.6-10.4)
[2018-10-25 17:00] LABS: URINE COLOR YELLOW (YELLOW)
--- NOTE | 2018-10-25 17:20 | CP.PCM.PN ---
Subjective - Date & Time of Evaluation Date of Evaluation: 10/25/18 Time of Evaluation: 17:22 - Subjective Subjective: Patient presents with tachycardia, weakness, mild sob. An Echo reveled a pericardial effusion. Will follow with surgery and data security consultant. Objective - Vital Signs/Intake and Output Vital Signs (last 24 hours): Temp Pulse Resp BP Pulse Ox 98.9 F 142 H 35 H 113/68 92 L 10/25/18 12:00 10/25/18 14:15 10/25/18 14:15 10/25/18 14:15 10/25/18 14:15 Intake and Output: 10/25/18 10/25/18 11:59 23:59 Intake Total 730 620 Output Total 350 Balance 380 620 - Medications Medications: Current Medications Carvedilol (Coreg) 3.125 mg PO BID [facility] Last Admin: 10/23/18 19:44 Dose: Not Given Pantoprazole Sodium 80 mg/ (Sodium Chloride) 100 mls @ 10 mls/hr IVPB .Q10H [facility] Last Admin: 10/25/18 08:18 Dose: 10 mls/hr Diltiazem HCl 125 mg/ Sodium (Chloride) 125 mls @ 5 mls/hr IV .Q24H [facility]; Protocol Last Admin: 10/25/18 14:27 Dose: 5 mg/hr, 5 mls/hr - Labs Labs: 10/25/18 06:15 10/25/18 16:41 PT 19.5 SECONDS (9.7-12.2) H 10/25/18 16:41 INR 1.8 10/25/18 16:41 APTT 29 SECONDS (21-34) 10/25/18 16:41 - Constitutional Appears: Chronically Ill - Head Exam Head Exam: ATRAUMATIC, NORMAL INSPECTION, NORMOCEPHALIC - Eye Exam Eye Exam: Normal appearance - ENT Exam ENT Exam: Mucous Membranes Moist - Neck Exam Neck Exam: Full ROM - Cardiovascular Exam Cardiovascular Exam: Tachycardia, Irregular Rhythm, +S1, +S2 - GI/Abdominal Exam GI & Abdominal Exam: Normal Bowel Sounds - Extremities Exam Extremities Exam: Normal Inspection - Neurological Exam Neurological Exam: Alert, Awake, CN II-XII Intact - Psychiatric Exam Psychiatric exam: Anxious - Skin Skin Exam: Pallor Assessment and Plan (1) Rapid atrial fibrillation Status: Acute (2) Symptomatic anemia Status: Acute (3) Atrial fibrillation Status: Acute (4) Hypertensive cardiovascular disease Status: Acute (5) Wide-complex tachycardia Status: Acute (6) Hypertension Status: Chronic (7) Pericardial effusion Status: Acute
[2018-10-25] MEDS ORDERED: Bupivacaine HCl 0.5% PF (10 ml) Inj ONE ×2 (17:28→18:02)
[2018-10-25] MEDS ORDERED: Lidocaine Hydrochloride 10 ML INJ ONE (17:28)
[2018-10-25] MEDS ORDERED: Vancomycin 1 GM 1 GM/250 ML BAG IVPB STA (17:33)
[2018-10-25] MEDS ORDERED: Ketamine 50 mg/ml Inj (10 ml) ONE (17:52)
[2018-10-25] MEDS ORDERED: Lidocaine 2% MPF (5 ml) Inj ONE (18:01)
[2018-10-25] MEDS: ceFAZolin 1 gm in NS 2 GM/200 ML BAG IVPB ONE ×2 (18:07→18:19)
[2018-10-25] MEDS ORDERED: Midazolam 2 MG/2 ML VIAL ONE ×2 (18:07→18:32)
--- NOTE | 2018-10-25 19:19 | PCM.SURG1 ---
Surgeon's Initial Post Op Note - Surgeon's Notes Surgeon: Dr. Shea Ranch Hand Supervisor: PGY2 Type of Anesthesia: IV Sedation, Local Anesthesia Administered By: Dr. Viveros, Dr. Verduzco Pre-Operative Diagnosis: Pericardial Effusion Operative Findings: 600cc of sanginous fluid in the pericardial sac. for details see op note Post-Operative Diagnosis: Pericardial Tamponade Operation Performed: Pericardial Window w/ CARMEN drain placement Specimen/Specimens Removed: 1. Pericardium. 2. Fluid culture Anerobe, aeorobe, AFB, fungus. 3. Fluid Cytology Estimated Blood Loss: EBL {In ML}: 15 Blood Products Given: N/A Drains Used: Parish Knutson Post-Op Condition: Fair Date of Surgery/Procedure: 10/25/18 Time of Surgery/Procedure: 19:19
--- NOTE | 2018-10-25 19:26 | CP.PCM.CON ---
History of Present Illness - History of Present Illness History of Present Illness: Thoracic Surgery Consult Note- Dr. Shea Reason for Consult: Pericardial effusion 62F pmhx significant for A.fib, a flutter, recent packemaker placed 5months ago initially presented to [facility] for generalized weakness. Hospital course patient was moved to the ICU due to A.Fib w/ RVR. After CT scan and bedside echo, showed pericardial effusion w/ early tamponade physiology. Thoracic surgery was subsequently consulted. During evaluation, patient complaining of continued weakness. AAOx3, GCS 15 non-focal. Denies chest pain, however mild shortness of breath. on NC 4L. Tachycardia 145+, BP 101/60. Denies: fevers, chills, vomiting, diarrhea, pleurtic chest pain 12 pt ROS conducted, negative otherwise stated above PMH: stated above, HTN, osteoporosis, B12 deficiency PSH: Hysterectomy, lung biopsy, pacemaker for tachybradycardia syndrome ALL: NKDA SocialHx: denies tobacco, etoh, recreational drug use FH: cardiac disease, stroke, thyroid Ca Review of Systems - Review of Systems All systems: reviewed and no additional remarkable complaints except - Constitutional Constitutional: As Per HPI Past Patient History - Past Medical History & Family History Past Medical History?: Yes - Past Social History Smoking Status: Never Smoked - CARDIAC Hx Cardiac Disorders: Yes Hx Hypertension: Yes Hx Pacemaker: Yes - PULMONARY Hx Respiratory Disorders: No - NEUROLOGICAL Hx Neurological Disorder: No - HEENT Hx HEENT Problems: No - RENAL Hx Chronic Kidney Disease: No - ENDOCRINE/METABOLIC Hx Endocrine Disorders: No - HEMATOLOGICAL/ONCOLOGICAL Hx Blood Disorders: Yes Hx Anemia: Yes - INTEGUMENTARY Hx Dermatological Problems: No - MUSCULOSKELETAL/RHEUMATOLOGICAL Hx Musculoskeletal Disorders: No Hx Falls: No - GENITOURINARY/GYNECOLOGICAL Hx Genitourinary Disorders: No - PSYCHIATRIC Hx Psychophysiologic Disorder: No Hx Substance Use: No - SURGICAL HISTORY Hx Surgeries: Yes Hx Hysterectomy: Yes Other/Comment: lung surgery =due to small detsph=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 - ANESTHESIA Hx Anesthesia: Yes Hx Anesthesia Reactions: No Hx Malignant Hyperthermia: No Meds Allergies/Adverse Reactions: Allergies Allergy/AdvReac Type Severity Reaction Status Date / Time No Known Allergies Allergy Verified 10/23/18 09:05 - Medications Medications: Current Medications Carvedilol (Coreg) 3.125 mg PO BID [facility] Last Admin: 10/23/18 19:44 Dose: Not Given Pantoprazole Sodium 80 mg/ (Sodium Chloride) 100 mls @ 10 mls/hr IVPB .Q10H [facility] Last Admin: 10/25/18 19:11 Dose: Not Given Diltiazem HCl 125 mg/ Sodium (Chloride) 125 mls @ 5 mls/hr IV .Q24H [facility]; Protocol Last Admin: 10/25/18 14:27 Dose: 5 mg/hr, 5 mls/hr Physical Exam - Constitutional Appears: No Acute Distress, Chronically Ill - Head Exam Head Exam: ATRAUMATIC - Eye Exam Eye Exam: EOMI. absent: Scleral icterus Additional comments: Pupils 3mm and reactive - ENT Exam ENT Exam: Mucous Membranes Moist - Respiratory Exam Respiratory Exam: Wheezes. absent: Accessory Muscle Use, Chest Wall Tenderness, Respiratory Distress - Cardiovascular Exam Cardiovascular Exam: Tachycardia, Irregular Rhythm. absent: REGULAR RHYTHM Additional comments: muffled heart sounds - GI/Abdominal Exam GI & Abdominal Exam: Soft. absent: Tenderness - Extremities Exam Extremities exam: Negative for: calf tenderness - Neurological Exam Neurological exam: Alert, Oriented x3 - Psychiatric Exam Psychiatric exam: Normal Affect - Skin Skin Exam: Intact, Warm Results - Vital Signs Recent Vital Signs: Last Vital Signs Temp 98.4 F 10/25/18 16:00 Pulse 133 H 10/25/18 19:08 Resp 25 H 10/25/18 19:08 BP 146/75 10/25/18 19:08 Pulse Ox 97 10/25/18 19:08 - Labs Result Diagrams: 10/25/18 06:15 10/25/18 16:41 Labs: Laboratory Results - last 24 hr 10/24/18 10/25/18 10/25/18 21:31 06:15 06:15 WBC 17.8 H 20.6 H RBC 3.92 4.13 Hgb 10.0 L D 10.2 L Hct 32.9 L 33.5 L MCV 83.9 D 81.1 D MCH 25.6 L 24.8 L MCHC 30.5 L 30.6 L RDW 17.3 H 17.6 H Plt Count 283 D 322 MPV 8.2 8.3 Differential Comment PT 19.7 H D INR 1.8 D APTT 29 D Sodium Potassium Chloride Carbon Dioxide Anion Gap BUN Creatinine Est GFR ( Amer) Est GFR (Non-Af Amer) Random Glucose Calcium Phosphorus Magnesium Total Bilirubin AST ALT Alkaline Phosphatase Total Protein Albumin Globulin Albumin/Globulin Ratio Free T4 TSH 3rd Generation Urine Color Urine Clarity Urine pH Ur Specific [place] Urine Protein Urine Glucose (UA) Urine Ketones Urine Blood Urine Nitrate Urine Bilirubin Urine Urobilinogen Ur Leukocyte Esterase Urine WBC (Auto) Urine RBC (Auto) Ur Squamous Epith Cells Urine Bacteria Hyaline Casts 10/25/18 10/25/18 10/25/18 08:44 08:44 16:41 WBC RBC Hgb Hct MCV MCH MCHC RDW Plt Count MPV Differential Comment PT INR APTT Sodium 130 L 129 L Potassium 5.3 H 4.8 Chloride 98 97 L Carbon Dioxide 21 L 19 L Anion Gap 16 17 BUN 38 H 40 H Creatinine 2.2 H 2.0 H Est GFR ( Amer) 27 30 Est GFR (Non-Af Amer) 22 25 Random Glucose 130 H D 168 H D Calcium 7.4 L 7.4 L Phosphorus 3.2 Magnesium 2.2 Total Bilirubin 1.7 H 1.3 AST 41 H D 41 H ALT 27 26 Alkaline Phosphatase 68 63 Total Protein 7.0 7.0 Albumin 3.7 3.8 Globulin 3.3 3.2 Albumin/Globulin Ratio 1.1 1.2 Free T4 0.95 TSH 3rd Generation 1.67 Urine Color Urine Clarity Urine pH Ur Specific [place] Urine Protein Urine Glucose (UA) Urine Ketones Urine Blood Urine Nitrate Urine Bilirubin Urine Urobilinogen Ur Leukocyte Esterase Urine WBC (Auto) Urine RBC (Auto) Ur Squamous Epith Cells Urine Bacteria Hyaline Casts 10/25/18 10/25/18 16:41 16:41 WBC RBC Hgb Hct MCV MCH MCHC RDW Plt Count MPV Differential Comment PT 19.5 H INR 1.8 APTT 29 Sodium Potassium Chloride Carbon Dioxide Anion Gap BUN Creatinine Est GFR ( Amer) Est GFR (Non-Af Amer) Random Glucose Calcium Phosphorus Magnesium Total Bilirubin AST ALT Alkaline Phosphatase Total Protein Albumin Globulin Albumin/Globulin Ratio Free T4 TSH 3rd Generation Urine Color Yellow Urine Clarity Hazy Urine pH 5.0 Ur Specific [place] 1.020 Urine Protein 2+ H Urine Glucose (UA) Normal Urine Ketones Negative Urine Blood Negative Urine Nitrate Negative Urine Bilirubin Negative Urine Urobilinogen Normal Ur Leukocyte Esterase 2+ H Urine WBC (Auto) 17 H Urine RBC (Auto) 4 H Ur Squamous Epith Cells 2 Urine Bacteria Rare Hyaline Casts >20 H Assessment & Plan - Assessment and Plan (Free Text) Assessment: 62F w/ pericardial effusion w/ Tamponade Plan: - OR for Pericardial window - strict I/O - monitor vitals - continued managment per critical care team - d/w Dr. Monse Romero PGY2
--- NOTE | 2018-10-25 22:04 | VASCLAB ---
Date of service: 10/25/2018 PROCEDURE: Lower Extremity Venous Duplex Exam. HISTORY: dvt PRIORS: None. TECHNIQUE: Bilateral common femoral, femoral, popliteal and posterior tibial, peroneal and great saphenous veins were evaluated. Flow was assessed with color Doppler, compressibility, assessment of phasic flow and augmentation response. Report prepared by JAYY Flores, RVT FINDINGS: RIGHT: 1. Common Femoral Vein: 1.1. Compressibility - Fully compressible: Thrombus - None : Flow - Phasic: Augmentation -Normal: Reflux - None. 2. Femoral Vein: 2.1. Compressibility - Fully compressible: Thrombus - None : Flow - Phasic: Augmentation -Normal: Reflux - None. 3. Popliteal Vein: 3.1. Compressibility - Fully compressible: Thrombus - None : Flow - Phasic: Augmentation -Normal: Reflux - None. 4. Posterior Tibial Vein: 4.1. Compressibility - Fully compressible: Thrombus - None: Flow - Phasic: Augmentation -Normal: Reflux - None. 5. Peroneal Vein: 5.1. Compressibility - Fully compressible: Thrombus - None: Flow - Phasic: Augmentation -Normal: Reflux - None. 6. Great Saphenous Vein: 6.1. Compressibility - Fully compressible: Thrombus - None: Flow - Phasic: Augmentation - Normal: Reflux - None. LEFT: 1. Common Femoral Vein: 1.1. Compressibility - Fully compressible: Thrombus - None: Flow - Phasic: Augmentation -Normal: Reflux - None. 2. Femoral Vein: 2.1. Compressibility - Fully compressible: Thrombus - None: Flow - Phasic: Augmentation -Normal: Reflux - None. 3. Popliteal Vein: 3.1. Compressibility - Fully compressible: Thrombus - None : Flow - Phasic: Augmentation -Normal: Reflux - None. 4. Posterior Tibial Vein: 4.1. Compressibility - Fully compressible: Thrombus - None: Flow - Phasic: Augmentation -Normal: Reflux - None. 5. Peroneal Vein: 5.1. Compressibility - Fully compressible: Thrombus - None: Flow - Phasic: Augmentation -Normal: Reflux - None. 6. Great Saphenous Vein: 6.1. Compressibility - Fully compressible: Thrombus - None: Flow - Phasic: Augmentation - Normal: Reflux - None. OTHER FINDINGS: Right: None significant. Left: None significant. IMPRESSION: Right: No evidence of deep or superficial vein thrombosis of the right lower extremity. Normal valve function noted of the right side. Left: No evidence of deep or superficial vein thrombosis of the left lower extremity. Normal valve function noted of the left side.
[2018-10-25] MEDS: cefTRIAXone 2 GM in Sodium Chloride 0.9% 100 ML IVPB SCH (22:26)
[2018-10-25 22:52] LABS: PLATELET ESTIMATE NORMAL (NORMAL)
[2018-10-25 22:54] LABS: BANDS 1 % (0-2); LYMPHOCYTE 23 % (20-40); MONOCYTE 14 % (0-10); NEUTROPHIL 62 % (50-75); TOTAL CELLS COUNTED 100
[2018-10-25 22:55] LABS: ANISOCYTOSIS SLIGHT; BURR CELLS SLIGHT; HYPERSEGMENTATION PRESENT; LARGE PLATELETS PRESENT; MICROCYTOSIS SLIGHT; OVALOCYTES SLIGHT; POIKILOCYTOSIS SLIGHT; POLYCHROMIC SLIGHT; SMUDGE CELLS PRESENT; SPHEROCYTES SLIGHT; TEARDROP CELLS SLIGHT
--- NOTE | 2018-10-25 23:18 | CP.PCM.PN ---
Subjective - Date & Time of Evaluation Date of Evaluation: 10/25/18 Time of Evaluation: 19:20 - Subjective Subjective: Patient s/p cardiac tamponade S/P Pericardial window (Patient was short of breath, tachycardic and Hypotensivs Stat ECHO revealed Cardiac tamponade) Review of Systems - Constitutional Constitutional: absent: Anorexia, Chills, Fatigue, Fever, Headache, Weakness - EENT Eyes: absent: Change in Vision Ears: absent: Decreased Hearing, Abnormal Hearing - Cardiovascular Cardiovascular: absent: Chest Pain, Chest Pain at Rest, Chest Pain with Activity, Diaphoresis, Dyspnea, Dyspnea on Exertion, Irregular Heart Rhythm, Lightheadedness, Palpitations, Rapid Heart Rate, Slow Heart Rate, Syncope - Respiratory Respiratory: absent: Cough, Dyspnea, Hemoptysis, Dyspnea on Exertion - Gastrointestinal Gastrointestinal: absent: Abdominal Pain, Change in Bowel Habits, Change in Stool Character, Coffee Ground Emesis, Constipation, Diarrhea - Genitourinary Genitourinary: absent: Difficulty Urinating, Dysuria, Hematuria - Musculoskeletal Musculoskeletal: absent: Arthralgias, Joint Swelling - Neurological Neurological: absent: Abnormal Hearing, Confusion, Dizziness, Numbness, Heada ches, Syncope - Psychiatric Psychiatric: absent: Behavioral Changes, Confusion - Endocrine Endocrine: absent: Change in Body Appearance, Excessive Sweating, Palpitations, Polyuria Physical Exam - Constitutional Appears: Well, Non-toxic, No Acute Distress - Head Exam Head Exam: ATRAUMATIC, NORMOCEPHALIC - Eye Exam Eye Exam: EOMI, Normal appearance - ENT Exam ENT Exam: Mucous Membranes Moist - Neck Exam Neck exam: Positive for: Normal Inspection - Respiratory Exam Respiratory Exam: Clear to Auscultation Bilateral, NORMAL BREATHING PATTERN. absent: Rales, Rhonchi, Wheezes, Respiratory Distress - Cardiovascular Exam Cardiovascular Exam: Tachycardia, +S1, +S2. absent: Gallop, Rubs, Systolic Murmur - GI/Abdominal Exam GI & Abdominal Exam: Normal Bowel Sounds, Soft. absent: Tenderness - Extremities Exam Extremities exam: Positive for: normal inspection - Neurological Exam Neurological exam: Alert, CN II-XII Intact, Oriented x3 - Psychiatric Exam Psychiatric exam: Normal Affect, Normal Mood - Skin Skin Exam: Dry, Intact, Normal Color, Warm Assessment & Plan - Assessment and Plan (Free Text) Assessment: Patient is a 62 year old female with past medical history of HTN, A fib on Eliquis admitted for GIB, anemia Rapid a fib Patient s/p Cardiac tamponade s/p Pericardial window stable Objective - Vital Signs/Intake and Output Vital Signs (last 24 hours): Temp Pulse Resp BP Pulse Ox 98.6 F 98 H 22 111/51 L 98 10/25/18 20:00 10/25/18 23:00 10/25/18 23:00 10/25/18 22:15 10/25/18 23:00 Intake and Output: 10/25/18 10/26/18 18:59 06:59 Intake Total 2690 110.0 Output Total 200 910 Balance 2490 -800.0 - Medications Medications: Current Medications Carvedilol (Coreg) 3.125 mg PO BID [facility] Last Admin: 10/23/18 19:44 Dose: Not Given Pantoprazole Sodium 80 mg/ (Sodium Chloride) 100 mls @ 10 mls/hr IVPB .Q10H [facility] Last Admin: 10/25/18 19:30 Dose: 10 mls/hr Diltiazem HCl 125 mg/ Sodium (Chloride) 125 mls @ 5 mls/hr IV .Q24H [facility]; Protocol Last Titration: 10/25/18 21:00 Dose: 10 mg/hr, 10 mls/hr Ceftriaxone Sodium 2 gm/ (Sodium Chloride) 100 mls @ 100 mls/hr IVPB DAILY [facility]; Protocol Last Admin: 10/25/18 22:26 Dose: 100 mls/hr Morphine Sulfate (Morphine) 2 mg IVP Q4 PRN PRN Reason: moderate to severe pain Pantoprazole Sodium (Protonix Ec Tab) 40 mg PO DAILY [facility] - Labs Labs: 10/25/18 06:15 10/25/18 16:41 PT 19.5 SECONDS (9.7-12.2) H 10/25/18 16:41 INR 1.8 10/25/18 16:41 APTT 29 SECONDS (21-34) 10/25/18 16:41
--- NOTE | 2018-10-26 00:43 | CP.PCM.CON ---
History of Present Illness - History of Present Illness History of Present Illness: 62 year old female with a history of HTN, arrhythmia s/p packemaker, admitted with afib with RVR s/p anticoagulation, complicated by GI bleeding, pericardial effusion with tamponade s/p pericardial window, with concern for hemorrhagic pericardial effusion and bleeding diathesis. The patient notes to recent pacemaker placement without hemostatic issues. She does note to bruising easily. Review of her medical records shows she was on Eliquis which had been promptly discontinued when she was discovered to have GI bleeding. She is s/p PRBC transfusion and is being monitored in the ICU Past medical history: HTN, arrhythmia s/p pacemaker Past surgical history: Pacemaker Family history: Denies hematologic and oncologic problems Social history: Denies tobacco, alcohol, and illicit drug use. Allergies: NKA Review of systems: All remaining review of systems including HEENT, cardiovascular, respiratory, gastrointestinal, genitourinary, musculoskeletal, dermatologic, neurologic, and psychiatric are negative unless mentioned in the HPI. Past Patient History - Past Medical History & Family History Past Medical History?: Yes - Past Social History Smoking Status: Never Smoked - CARDIAC Hx Cardiac Disorders: Yes Hx Hypertension: Yes Hx Pacemaker: Yes - PULMONARY Hx Respiratory Disorders: No - NEUROLOGICAL Hx Neurological Disorder: No - HEENT Hx HEENT Problems: No - RENAL Hx Chronic Kidney Disease: No - ENDOCRINE/METABOLIC Hx Endocrine Disorders: No - HEMATOLOGICAL/ONCOLOGICAL Hx Blood Disorders: Yes Hx Anemia: Yes - INTEGUMENTARY Hx Dermatological Problems: No - MUSCULOSKELETAL/RHEUMATOLOGICAL Hx Musculoskeletal Disorders: No Hx Falls: No - GENITOURINARY/GYNECOLOGICAL Hx Genitourinary Disorders: No - PSYCHIATRIC Hx Psychophysiologic Disorder: No Hx Substance Use: No - SURGICAL HISTORY Hx Surgeries: Yes Hx Hysterectomy: Yes Other/Comment: lung surgery =due to small [id number] - ANESTHESIA Hx Anesthesia: Yes Hx Anesthesia Reactions: No Hx Malignant Hyperthermia: No Meds Allergies/Adverse Reactions: Allergies Allergy/AdvReac Type Severity Reaction Status Date / Time No Known Allergies Allergy Verified 10/23/18 09:05 - Medications Medications: Current Medications Carvedilol (Coreg) 3.125 mg PO BID [facility] Last Admin: 10/23/18 19:44 Dose: Not Given Pantoprazole Sodium 80 mg/ (Sodium Chloride) 100 mls @ 10 mls/hr IVPB .Q10H [facility] Last Admin: 10/25/18 19:30 Dose: 10 mls/hr Diltiazem HCl 125 mg/ Sodium (Chloride) 125 mls @ 5 mls/hr IV .Q24H [facility]; Protocol Last Titration: 10/25/18 21:00 Dose: 10 mg/hr, 10 mls/hr Ceftriaxone Sodium 2 gm/ (Sodium Chloride) 100 mls @ 100 mls/hr IVPB DAILY [facility]; Protocol Last Admin: 10/25/18 22:26 Dose: 100 mls/hr Morphine Sulfate (Morphine) 2 mg IVP Q4 PRN PRN Reason: moderate to severe pain Last Admin: 10/26/18 00:03 Dose: 2 mg Pantoprazole Sodium (Protonix Ec Tab) 40 mg PO DAILY [facility] Physical Exam - Head Exam Head Exam: ATRAUMATIC - Eye Exam Eye Exam: Normal appearance - ENT Exam ENT Exam: Mucous Membranes Dry - Respiratory Exam Respiratory Exam: Decreased Breath Sounds - Cardiovascular Exam Cardiovascular Exam: +S1, +S2 - GI/Abdominal Exam GI & Abdominal Exam: Normal Bowel Sounds - Extremities Exam Extremities exam: Positive for: pedal edema - Neurological Exam Neurological exam: Oriented x3 - Psychiatric Exam Psychiatric exam: Flat Affect - Skin Skin Exam: Warm Results - Vital Signs Recent Vital Signs: Last Vital Signs Temp 98.6 F 10/25/18 20:00 Pulse 98 H 10/25/18 23:00 Resp 22 10/25/18 23:00 BP 111/51 L 10/25/18 22:15 Pulse Ox 98 10/25/18 23:00 - Labs Result Diagrams: 10/25/18 06:15 10/25/18 16:41 Labs: Laboratory Results - last 24 hr 10/25/18 10/25/18 10/25/18 06:15 06:15 08:44 WBC 20.6 H RBC 4.13 Hgb 10.2 L Hct 33.5 L MCV 81.1 D MCH 24.8 L MCHC 30.6 L RDW 17.6 H Plt Count 322 MPV 8.3 Neut % (Auto) Cancelled Lymph % (Auto) Cancelled [place] % (Auto) Cancelled Eos % (Auto) Cancelled Baso % (Auto) Cancelled Neut # (Auto) Cancelled Lymph # (Auto) Cancelled [place] # (Auto) Cancelled Eos # (Auto) Cancelled Baso # (Auto) Cancelled Neutrophils % (Manual) 62 Band Neutrophils % 1 Lymphocytes % (Manual) 23 Monocytes % (Manual) 14 H Differential Comment Hypersegmented Polys Present Smudge Cells Present Platelet Estimate Normal Large Platelets Present Polychromasia Slight Poikilocytosis (manual Slight Anisocytosis (manual) Slight Microcytosis (manual) Slight Spherocytes Slight Tear Drop Cells Slight Ovalocytes Slight [place] Cells Slight ESR PT 19.7 H D INR 1.8 D APTT 29 D Sodium 130 L Potassium 5.3 H Chloride 98 Carbon Dioxide 21 L Anion Gap 16 BUN 38 H Creatinine 2.2 H Est GFR ( Amer) 27 Est GFR (Non-Af Amer) 22 Random Glucose 130 H D Calcium 7.4 L Phosphorus 3.2 Magnesium 2.2 Total Bilirubin 1.7 H AST 41 H D ALT 27 Alkaline Phosphatase 68 Total Protein 7.0 Albumin 3.7 Globulin 3.3 Albumin/Globulin Ratio 1.1 Free T4 TSH 3rd Generation 1.67 Urine Color Urine Clarity Urine pH Ur Specific [place] Urine Protein Urine Glucose (UA) Urine Ketones Urine Blood Urine Nitrate Urine Bilirubin Urine Urobilinogen Ur Leukocyte Esterase Urine WBC (Auto) Urine RBC (Auto) Ur Squamous Epith Cells Urine Bacteria Hyaline Casts Blood Type Antibody Screen 10/25/18 10/25/18 10/25/18 08:44 16:41 16:41 WBC RBC Hgb Hct MCV MCH MCHC RDW Plt Count MPV Neut % (Auto) Lymph % (Auto) [place] % (Auto) Eos % (Auto) Baso % (Auto) Neut # (Auto) Lymph # (Auto) [place] # (Auto) Eos # (Auto) Baso # (Auto) Neutrophils % (Manual) Band Neutrophils % Lymphocytes % (Manual) Monocytes % (Manual) Differential Comment Hypersegmented Polys Smudge Cells Platelet Estimate Large Platelets Polychromasia Poikilocytosis (manual Anisocytosis (manual) Microcytosis (manual) Spherocytes Tear Drop Cells Ovalocytes [place] Cells ESR PT INR APTT Sodium 129 L Potassium 4.8 Chloride 97 L Carbon Dioxide 19 L Anion Gap 17 BUN 40 H Creatinine 2.0 H Est GFR ( Amer) 30 Est GFR (Non-Af Amer) 25 Random Glucose 168 H D Calcium 7.4 L Phosphorus Magnesium Total Bilirubin 1.3 AST 41 H ALT 26 Alkaline Phosphatase 63 Total Protein 7.0 Albumin 3.8 Globulin 3.2 Albumin/Globulin Ratio 1.2 Free T4 0.95 TSH 3rd Generation Urine Color Yellow Urine Clarity Hazy Urine pH 5.0 Ur Specific [place] 1.020 Urine Protein 2+ H Urine Glucose (UA) Normal Urine Ketones Negative Urine Blood Negative Urine Nitrate Negative Urine Bilirubin Negative Urine Urobilinogen Normal Ur Leukocyte Esterase 2+ H Urine WBC (Auto) 17 H Urine RBC (Auto) 4 H Ur Squamous Epith Cells 2 Urine Bacteria Rare Hyaline Casts >20 H Blood Type Antibody Screen 10/25/18 10/25/18 10/25/18 16:41 17:58 20:31 WBC RBC Hgb Hct MCV MCH MCHC RDW Plt Count MPV Neut % (Auto) Lymph % (Auto) [place] % (Auto) Eos % (Auto) Baso % (Auto) Neut # (Auto) Lymph # (Auto) [place] # (Auto) Eos # (Auto) Baso # (Auto) Neutrophils % (Manual) Band Neutrophils % Lymphocytes % (Manual) Monocytes % (Manual) Differential Comment Hypersegmented Polys Smudge Cells Platelet Estimate Large Platelets Polychromasia Poikilocytosis (manual Anisocytosis (manual) Microcytosis (manual) Spherocytes Tear Drop Cells Ovalocytes [place] Cells ESR 40 H PT 19.5 H INR 1.8 APTT 29 Sodium Potassium Chloride Carbon Dioxide Anion Gap BUN Creatinine Est GFR ( Amer) Est GFR (Non-Af Amer) Random Glucose Calcium Phosphorus Magnesium Total Bilirubin AST ALT Alkaline Phosphatase Total Protein Albumin Globulin Albumin/Globulin Ratio Free T4 TSH 3rd Generation Urine Color Urine Clarity Urine pH Ur Specific [place] Urine Protein Urine Glucose (UA) Urine Ketones Urine Blood Urine Nitrate Urine Bilirubin Urine Urobilinogen Ur Leukocyte Esterase Urine WBC (Auto) Urine RBC (Auto) Ur Squamous Epith Cells Urine Bacteria Hyaline Casts Blood Type B POSITIVE Antibody Screen Negative Assessment & Plan (1) Anemia Assessment and Plan: will check retic count, b12, folate, ferritin to further characterize GI blood loss ? hemorrhagic pericardial effusion agree with holding anticoagulation and antiplatelet H/H appears to have stabilized since PRBC transfusion transfusion support PRN Status: Acute (2) Coagulopathy Assessment and Plan: secondary to prior Eliquis and likely nutritional component will hold off on vit k supplementation unless the patient develops another drop in H/H suspect bleeding issues are related to anticoagulation which has now been discontinued will repeat coags, fibrinogen, and plt function test Thank you for this interesting consult. Status: Acute
[2018-10-26 05:07] LABS: PLT(ADP) 149 K/uL
[2018-10-26 05:11] LABS: FUNCTIONING PLTS 93 K/uL; PLT BASE COUNT 242 K/uL
[2018-10-26 05:17] LABS: HEMOGLOBIN 9.2 g/dL (11.0-16.0); MEAN CORPUSCULAR HEMOGLOBIN 25.2 pg (27.0-31.0); MEAN CORPUSCULAR HGB CONC 30.4 g/dL (33.0-37.0); MEAN PLATELET VOLUME 7.9 fL (7.2-11.7); RBC 3.64 Mil/uL (3.80-5.20); RED CELL DISTRIBUTION WIDTH 17.7 % (11.5-14.5); WHITE BLOOD COUNT 15.5 K/uL (4.8-10.8)
[2018-10-26] MEDS: Pantoprazole 80 MG in Sodium Chloride 0.9% 100 ML IVPB SCH ×4 (05:26→17:00)
[2018-10-26 05:34] LABS: INR 1.6; PROTHROMBIN TIME 17.2 SECONDS (9.7-12.2)
[2018-10-26 06:05] LABS: FERRITIN 18.3 ng/mL
[2018-10-26 06:36] LABS: FOLATE 11.5 ng/mL
[2018-10-26 06:45] LABS: ALT/SGPT 24 U/L (9-52); AST/SGOT 34 U/L (14-36); BLOOD UREA NITROGEN 29 mg/dL (7-17); CALCIUM 7.3 mg/dl (8.6-10.4); GFR NON-AFRICAN AMERICAN 45
--- NOTE | 2018-10-26 08:59 | CP.PCM.PN ---
Subjective - Date & Time of Evaluation Date of Evaluation: 10/26/18 Time of Evaluation: 08:54 - Subjective Subjective: Thoracic Surgery - Dr. Shea Pt S&E. Pt doing well s/p pericardial window last night. She has had 140cc sanguinous output from mediastinal drain. She states that her SOB has improved and she denies any chest pain at present. She denies any Fevers/Chills, Nausea/vomiting. She is NPO for possible EGD today. Objective - Vital Signs/Intake and Output Vital Signs (last 24 hours): Temp Pulse Resp BP Pulse Ox 98.8 F 83 15 95/42 L 93 L 10/26/18 08:00 10/26/18 08:13 10/26/18 08:13 10/26/18 08:13 10/26/18 08:13 Intake and Output: 10/26/18 10/26/18 06:59 18:59 Intake Total 260.0 40 Output Total 990 220 Balance -730.0 -180 - Medications Medications: Current Medications Carvedilol (Coreg) 3.125 mg PO BID [facility] Last Admin: 10/23/18 19:44 Dose: Not Given Pantoprazole Sodium 80 mg/ (Sodium Chloride) 100 mls @ 10 mls/hr IVPB .Q10H [facility] Last Admin: 10/26/18 05:28 Dose: 10 mls/hr Diltiazem HCl 125 mg/ Sodium (Chloride) 125 mls @ 5 mls/hr IV .Q24H [facility]; Protocol Last Admin: 10/26/18 05:00 Dose: 10 mg/hr, 10 mls/hr Ceftriaxone Sodium 2 gm/ (Sodium Chloride) 100 mls @ 100 mls/hr IVPB DAILY [facility]; Protocol Last Admin: 10/25/18 22:26 Dose: 100 mls/hr Morphine Sulfate (Morphine) 2 mg IVP Q4 PRN PRN Reason: moderate to severe pain Last Admin: 10/26/18 00:03 Dose: 2 mg - Labs Labs: 10/26/18 05:14 10/26/18 05:14 PT 17.2 SECONDS (9.7-12.2) H 10/26/18 05:14 INR 1.6 10/26/18 05:14 APTT 28 SECONDS (21-34) 10/26/18 05:14 - Constitutional Appears: No Acute Distress - Head Exam Head Exam: ATRAUMATIC, NORMAL INSPECTION, NORMOCEPHALIC - Eye Exam Eye Exam: Normal appearance - Respiratory Exam Respiratory Exam: Clear to Ausculation Bilateral, NORMAL BREATHING PATTERN. absent: Respiratory Distress Additional comments: Surgical dressings c/d/i, mediastinal drain with sanguinous fluid - Cardiovascular Exam Cardiovascular Exam: REGULAR RHYTHM - GI/Abdominal Exam GI & Abdominal Exam: Soft. absent: Distended, Guarding, Tenderness, Rebound - Neurological Exam Neurological Exam: Alert, Oriented x3 - Psychiatric Exam Psychiatric exam: Normal Affect, Normal Mood - Skin Skin Exam: Dry, Intact Assessment and Plan - Assessment and Plan (Free Text) Assessment: 62F w/ pericardial effusion w/ Tamponade, s/p pericardial window POD #1 Plan: - Monitor mediastinal drainage - Strict I/O - F/U Path/Cytology from pericardial fluid - Continued management per critical care team - Clear for OOB and Diet from our standpoint after procedure today D/w Dr. Monse Pereyra [id number]
[2018-10-26] MEDS: cefTRIAXone 2 GM in Sodium Chloride 0.9% 100 ML IVPB SCH (09:59)
[2018-10-26] MEDS ORDERED: Pantoprazole 40 mg EC Tab PO SCH (10:00)
--- NOTE | 2018-10-26 12:45 | CP.CCUPN ---
<Nitish Ratliff M - Last Filed: 10/26/18 14:32> CCU Subjective - Physician Review Subjective (Free Text): Critical care progress note for Dr. Lisa Patient seen and examined at bedside. No acute events overnight. Patient is POD #1 s/p pericardial window for pericardial effusion/ tamponade. This AM patient does not have any complaints. patient denies headaches, vision changes, chest pain, SOB, cough, nausea, vomiting, abdominal pain, fevers, chills. CCU Objective - Vital Signs / Intake & Output Vital Signs (Last 4 hours): Vital Signs Pulse Resp BP Pulse Ox 10/26/18 09:05 86 22 99/48 L 91 L Intake and Output (Last 8hrs): Intake & Output 10/25/18 10/26/18 10/26/18 22:59 06:59 14:59 Intake Total 1850.0 170 40 Output Total 660 530 220 Balance 1190.0 -360 -180 Weight 143 lb 4.807 oz Intake: IV 1717.5 10 Intake, IV Amount 132.5 160 40 Left AC Distal Port 80 80 20 Left Antecubital 52.5 80 20 Output: Drainage 60 80 Anterior Chest 60 80 Urine 600 450 220 Urine, Voided 600 450 220 Other: # Voids Urine, Voided 1 1 - Physical Exam Head: Positive for: Atraumatic, Normocephalic Pupils: Positive for: PERRL Extroacular Muscles: Positive for: EOMI Conjunctiva: Positive for: Normal Mouth: Positive for: Moist Mucous Membranes Neck: Positive for: Normal Range of Motion, JVD Respiratory/Chest: Positive for: Clear to Auscultation, Good Air Exchange. Negative for: Accessory Muscle Use Cardiovascular: Positive for: Murmurs, Normal S1, S2, Other (CARMEN drain, 140 cc sanguinous draine ) Abdomen: Positive for: Normal Bowel Sounds. Negative for: Tenderness, Distention, Guarding Upper Extremity: Positive for: Normal Inspection. Negative for: Edema Lower Extremity: Positive for: Normal Inspection. Negative for: Edema Neurological: Positive for: GCS=15 Skin: Positive for: Warm, Dry, Rashes, Normal Color Psychiatric: Positive for: Alert, Oriented x 3 - Medications Active Medications: Active Medications Generic Name Dose Route Start Last Admin Trade Name Freq PRN Reason Stop Dose Admin Carvedilol 3.125 mg 10/23/18 19:45 10/23/18 19:44 Coreg PO Not Given BID LAYTON Pantoprazole Sodium 80 mg/ 100 mls @ 10 mls/hr 10/24/18 11:30 10/26/18 05:28 Sodium Chloride IVPB 10 mls/hr .Q10H LAYTON Administration 8 MG/HR Diltiazem HCl 125 mg/ Sodium 125 mls @ 5 mls/hr 10/25/18 14:15 10/26/18 05:00 Chloride IV 10 mg/hr .Q24H LAYTON 10 mls/hr Administration Protocol 5 MG/HR Ceftriaxone Sodium 2 gm/ 100 mls @ 100 mls/hr 10/25/18 22:00 10/26/18 09:59 Sodium Chloride IVPB 100 mls/hr DAILY LAYTON Administration Protocol Morphine Sulfate 2 mg 10/25/18 21:20 10/26/18 10:01 Morphine IVP 2 mg Q4 PRN Administration moderate to severe pain - Patient Studies Lab Studies: Microbiology Studies 10/25/18 19:41 Gram Stain - Final Pericardial Fluid 10/24/18 14:44 MRSA Culture (Admit) - Final Naris MRSA NOT DETECTED Lab Studies 10/26/18 10/26/18 10/26/18 Range/Units 05:14 05:14 05:14 WBC (4.8-10.8) K/uL RBC (3.80-5.20) Mil/uL Hgb (11.0-16.0) g/dL Hct (34.0-47.0) % MCV (81.0-99.0) fL MCH (27.0-31.0) pg MCHC (33.0-37.0) g/dL RDW (11.5-14.5) % Plt Count (130-400) K/uL MPV (7.2-11.7) fL Neut % (Auto) Lymph % (Auto) [place] % (Auto) Eos % (Auto) Baso % (Auto) Neut # (Auto) Lymph # (Auto) [place] # (Auto) Eos # (Auto) Baso # (Auto) Neutrophils % (Manual) (50-75) % Band Neutrophils % (0-2) % Lymphocytes % (Manual) (20-40) % Monocytes % (Manual) (0-10) % Hypersegmented Polys Smudge Cells Platelet Estimate (NORMAL) Large Platelets Polychromasia Poikilocytosis (manual Anisocytosis (manual) Microcytosis (manual) Spherocytes Tear Drop Cells Ovalocytes [place] Cells ESR (0-20) mm/hr Retic Count 4.3 H (0.5-1.5) % PT 17.2 H (9.7-12.2) SECONDS INR 1.6 APTT 28 (21-34) SECONDS Fibrinogen 319 (200-400) mg/dL Plt Function Assay K/uL Sodium 133 (132-148) mmol/L Potassium 4.5 (3.6-5.2) mmol/L Chloride 101 (98-107) mmol/L Carbon Dioxide 24 (22-30) mmol/L Anion Gap 12 (10-20) BUN 29 H (7-17) mg/dL Creatinine 1.2 (0.7-1.2) mg/dL Est GFR ( Amer) 55 Est GFR (Non-Af Amer) 45 Random Glucose 114 H D (65-105) mg/dL Calcium 7.3 L (8.6-10.4) mg/dl Phosphorus 2.5 (2.5-4.5) mg/dL Magnesium 2.2 (1.6-2.3) mg/dL Ferritin 18.3 ng/mL Total Bilirubin 0.9 (0.2-1.3) mg/dL AST 34 (14-36) U/L ALT 24 (9-52) U/L Alkaline Phosphatase 56 (38-126) U/L C-Reactive Protein 60.90 H (0.0-9.9) mg/L Total Protein 5.9 L (6.3-8.3) g/dL Albumin 3.0 L D (3.5-5.0) g/dL Globulin 2.9 (2.2-3.9) gm/dL Albumin/Globulin Ratio 1.0 (1.0-2.1) Vitamin B12 > 1000 H (239-931) pg/mL Folate 11.5 ng/mL Urine Color (YELLOW) Urine Clarity (Clear) Urine pH (5.0-8.0) Ur Specific [place] (1.003-1.030) Urine Protein (NEGATIVE) mg/dL Urine Glucose (UA) (Normal) mg/dL Urine Ketones (NEGATIVE) mg/dL Urine Blood (NEGATIVE) Urine Nitrate (NEGATIVE) Urine Bilirubin (NEGATIVE) Urine Urobilinogen (0.2-1.0) mg/dL Ur Leukocyte Esterase (Negative) Vargas/uL Urine WBC (Auto) (0-5) /hpf Urine RBC (Auto) (0-3) /hpf Ur Squamous Epith Cells (0-5) /hpf Urine Bacteria (<OCC) Hyaline Casts (0-2) /lpf Blood Type Antibody Screen 10/26/18 10/26/18 10/25/18 Range/Units 05:14 05:01 20:31 WBC 15.5 H (4.8-10.8) K/uL RBC 3.64 L (3.80-5.20) Mil/uL Hgb 9.2 L (11.0-16.0) g/dL Hct 30.2 L (34.0-47.0) % MCV 83.0 (81.0-99.0) fL MCH 25.2 L (27.0-31.0) pg MCHC 30.4 L (33.0-37.0) g/dL RDW 17.7 H (11.5-14.5) % Plt Count 254 (130-400) K/uL MPV 7.9 (7.2-11.7) fL Neut % (Auto) Lymph % (Auto) [place] % (Auto) Eos % (Auto) Baso % (Auto) Neut # (Auto) Lymph # (Auto) [place] # (Auto) Eos # (Auto) Baso # (Auto) Neutrophils % (Manual) (50-75) % Band Neutrophils % (0-2) % Lymphocytes % (Manual) (20-40) % Monocytes % (Manual) (0-10) % Hypersegmented Polys Smudge Cells Platelet Estimate (NORMAL) Large Platelets Polychromasia Poikilocytosis (manual Anisocytosis (manual) Microcytosis (manual) Spherocytes Tear Drop Cells Ovalocytes [place] Cells ESR 40 H (0-20) mm/hr Retic Count (0.5-1.5) % PT (9.7-12.2) SECONDS INR APTT (21-34) SECONDS Fibrinogen (200-400) mg/dL Plt Function Assay 93 K/uL Sodium (132-148) mmol/L Potassium (3.6-5.2) mmol/L Chloride (98-107) mmol/L Carbon Dioxide (22-30) mmol/L Anion Gap (10-20) BUN (7-17) mg/dL Creatinine (0.7-1.2) mg/dL Est GFR ( Amer) Est GFR (Non-Af Amer) Random Glucose (65-105) mg/dL Calcium (8.6-10.4) mg/dl Phosphorus (2.5-4.5) mg/dL Magnesium (1.6-2.3) mg/dL Ferritin ng/mL Total Bilirubin (0.2-1.3) mg/dL AST (14-36) U/L ALT (9-52) U/L Alkaline Phosphatase (38-126) U/L C-Reactive Protein (0.0-9.9) mg/L Total Protein (6.3-8.3) g/dL Albumin (3.5-5.0) g/dL Globulin (2.2-3.9) gm/dL Albumin/Globulin Ratio (1.0-2.1) Vitamin B12 (239-931) pg/mL Folate ng/mL Urine Color (YELLOW) Urine Clarity (Clear) Urine pH (5.0-8.0) Ur Specific [place] (1.003-1.030) Urine Protein (NEGATIVE) mg/dL Urine Glucose (UA) (Normal) mg/dL Urine Ketones (NEGATIVE) mg/dL Urine Blood (NEGATIVE) Urine Nitrate (NEGATIVE) Urine Bilirubin (NEGATIVE) Urine Urobilinogen (0.2-1.0) mg/dL Ur Leukocyte Esterase (Negative) Vargas/uL Urine WBC (Auto) (0-5) /hpf Urine RBC (Auto) (0-3) /hpf Ur Squamous Epith Cells (0-5) /hpf Urine Bacteria (<OCC) Hyaline Casts (0-2) /lpf Blood Type Antibody Screen 10/25/18 10/25/18 10/25/18 Range/Units 17:58 16:41 16:41 WBC (4.8-10.8) K/uL RBC (3.80-5.20) Mil/uL Hgb (11.0-16.0) g/dL Hct (34.0-47.0) % MCV (81.0-99.0) fL MCH (27.0-31.0) pg MCHC (33.0-37.0) g/dL RDW (11.5-14.5) % Plt Count (130-400) K/uL MPV (7.2-11.7) fL Neut % (Auto) Lymph % (Auto) [place] % (Auto) Eos % (Auto) Baso % (Auto) Neut # (Auto) Lymph # (Auto) [place] # (Auto) Eos # (Auto) Baso # (Auto) Neutrophils % (Manual) (50-75) % Band Neutrophils % (0-2) % Lymphocytes % (Manual) (20-40) % Monocytes % (Manual) (0-10) % Hypersegmented Polys Smudge Cells Platelet Estimate (NORMAL) Large Platelets Polychromasia Poikilocytosis (manual Anisocytosis (manual) Microcytosis (manual) Spherocytes Tear Drop Cells Ovalocytes [place] Cells ESR (0-20) mm/hr Retic Count (0.5-1.5) % PT 19.5 H (9.7-12.2) SECONDS INR 1.8 APTT 29 (21-34) SECONDS Fibrinogen (200-400) mg/dL Plt Function Assay K/uL Sodium (132-148) mmol/L Potassium (3.6-5.2) mmol/L Chloride (98-107) mmol/L Carbon Dioxide (22-30) mmol/L Anion Gap (10-20) BUN (7-17) mg/dL Creatinine (0.7-1.2) mg/dL Est GFR ( Amer) Est GFR (Non-Af Amer) Random Glucose (65-105) mg/dL Calcium (8.6-10.4) mg/dl Phosphorus (2.5-4.5) mg/dL Magnesium (1.6-2.3) mg/dL Ferritin ng/mL Total Bilirubin (0.2-1.3) mg/dL AST (14-36) U/L ALT (9-52) U/L Alkaline Phosphatase (38-126) U/L C-Reactive Protein (0.0-9.9) mg/L Total Protein (6.3-8.3) g/dL Albumin (3.5-5.0) g/dL Globulin (2.2-3.9) gm/dL Albumin/Globulin Ratio (1.0-2.1) Vitamin B12 (239-931) pg/mL Folate ng/mL Urine Color Yellow (YELLOW) Urine Clarity Hazy (Clear) Urine pH 5.0 (5.0-8.0) Ur Specific [place] 1.020 (1.003-1.030) Urine Protein 2+ H (NEGATIVE) mg/dL Urine Glucose (UA) Normal (Normal) mg/dL Urine Ketones Negative (NEGATIVE) mg/dL Urine Blood Negative (NEGATIVE) Urine Nitrate Negative (NEGATIVE) Urine Bilirubin Negative (NEGATIVE) Urine Urobilinogen Normal (0.2-1.0) mg/dL Ur Leukocyte Esterase 2+ H (Negative) Vargas/uL Urine WBC (Auto) 17 H (0-5) /hpf Urine RBC (Auto) 4 H (0-3) /hpf Ur Squamous Epith Cells 2 (0-5) /hpf Urine Bacteria Rare (<OCC) Hyaline Casts >20 H (0-2) /lpf Blood Type B POSITIVE Antibody Screen Negative 10/25/18 10/25/18 Range/Units 16:41 06:15 WBC (4.8-10.8) K/uL RBC (3.80-5.20) Mil/uL Hgb (11.0-16.0) g/dL Hct (34.0-47.0) % MCV (81.0-99.0) fL MCH (27.0-31.0) pg MCHC (33.0-37.0) g/dL RDW (11.5-14.5) % Plt Count (130-400) K/uL MPV (7.2-11.7) fL Neut % (Auto) Cancelled Lymph % (Auto) Cancelled [place] % (Auto) Cancelled Eos % (Auto) Cancelled Baso % (Auto) Cancelled Neut # (Auto) Cancelled Lymph # (Auto) Cancelled [place] # (Auto) Cancelled Eos # (Auto) Cancelled Baso # (Auto) Cancelled Neutrophils % (Manual) 62 (50-75) % Band Neutrophils % 1 (0-2) % Lymphocytes % (Manual) 23 (20-40) % Monocytes % (Manual) 14 H (0-10) % Hypersegmented Polys Present Smudge Cells Present Platelet Estimate Normal (NORMAL) Large Platelets Present Polychromasia Slight Poikilocytosis (manual Slight Anisocytosis (manual) Slight Microcytosis (manual) Slight Spherocytes Slight Tear Drop Cells Slight Ovalocytes Slight [place] Cells Slight ESR (0-20) mm/hr Retic Count (0.5-1.5) % PT (9.7-12.2) SECONDS INR APTT (21-34) SECONDS Fibrinogen (200-400) mg/dL Plt Function Assay K/uL Sodium 129 L (132-148) mmol/L Potassium 4.8 (3.6-5.2) mmol/L Chloride 97 L (98-107) mmol/L Carbon Dioxide 19 L (22-30) mmol/L Anion Gap 17 (10-20) BUN 40 H (7-17) mg/dL Creatinine 2.0 H (0.7-1.2) mg/dL Est GFR ( Amer) 30 Est GFR (Non-Af Amer) 25 Random Glucose 168 H D (65-105) mg/dL Calcium 7.4 L (8.6-10.4) mg/dl Phosphorus (2.5-4.5) mg/dL Magnesium (1.6-2.3) mg/dL Ferritin ng/mL Total Bilirubin 1.3 (0.2-1.3) mg/dL AST 41 H (14-36) U/L ALT 26 (9-52) U/L Alkaline Phosphatase 63 (38-126) U/L C-Reactive Protein (0.0-9.9) mg/L Total Protein 7.0 (6.3-8.3) g/dL Albumin 3.8 (3.5-5.0) g/dL Globulin 3.2 (2.2-3.9) gm/dL Albumin/Globulin Ratio 1.2 (1.0-2.1) Vitamin B12 (239-931) pg/mL Folate ng/mL Urine Color (YELLOW) Urine Clarity (Clear) Urine pH (5.0-8.0) Ur Specific [place] (1.003-1.030) Urine Protein (NEGATIVE) mg/dL Urine Glucose (UA) (Normal) mg/dL Urine Ketones (NEGATIVE) mg/dL Urine Blood (NEGATIVE) Urine Nitrate (NEGATIVE) Urine Bilirubin (NEGATIVE) Urine Urobilinogen (0.2-1.0) mg/dL Ur Leukocyte Esterase (Negative) Vargas/uL Urine WBC (Auto) (0-5) /hpf Urine RBC (Auto) (0-3) /hpf Ur Squamous Epith Cells (0-5) /hpf Urine Bacteria (<OCC) Hyaline Casts (0-2) /lpf Blood Type Antibody Screen Laboratory Results - last 24 hr 10/25/18 10/25/18 10/25/18 06:15 16:41 16:41 WBC RBC Hgb Hct MCV MCH MCHC RDW Plt Count MPV Neut % (Auto) Cancelled Lymph % (Auto) Cancelled [place] % (Auto) Cancelled Eos % (Auto) Cancelled Baso % (Auto) Cancelled Neut # (Auto) Cancelled Lymph # (Auto) Cancelled [place] # (Auto) Cancelled Eos # (Auto) Cancelled Baso # (Auto) Cancelled Neutrophils % (Manual) 62 Band Neutrophils % 1 Lymphocytes % (Manual) 23 Monocytes % (Manual) 14 H Hypersegmented Polys Present Smudge Cells Present Platelet Estimate Normal Large Platelets Present Polychromasia Slight Poikilocytosis (manual Slight Anisocytosis (manual) Slight Microcytosis (manual) Slight Spherocytes Slight Tear Drop Cells Slight Ovalocytes Slight [place] Cells Slight ESR Retic Count PT INR APTT Fibrinogen Plt Function Assay Sodium 129 L Potassium 4.8 Chloride 97 L Carbon Dioxide 19 L Anion Gap 17 BUN 40 H Creatinine 2.0 H Est GFR ( Amer) 30 Est GFR (Non-Af Amer) 25 Random Glucose 168 H D Calcium 7.4 L Phosphorus Magnesium Ferritin Total Bilirubin 1.3 AST 41 H ALT 26 Alkaline Phosphatase 63 C-Reactive Protein Total Protein 7.0 Albumin 3.8 Globulin 3.2 Albumin/Globulin Ratio 1.2 Vitamin B12 Folate Urine Color Yellow Urine Clarity Hazy Urine pH 5.0 Ur Specific [place] 1.020 Urine Protein 2+ H Urine Glucose (UA) Normal Urine Ketones Negative Urine Blood Negative Urine Nitrate Negative Urine Bilirubin Negative Urine Urobilinogen Normal Ur Leukocyte Esterase 2+ H Urine WBC (Auto) 17 H Urine RBC (Auto) 4 H Ur Squamous Epith Cells 2 Urine Bacteria Rare Hyaline Casts >20 H Blood Type Antibody Screen 10/25/18 10/25/18 10/25/18 16:41 17:58 20:31 WBC RBC Hgb Hct MCV MCH MCHC RDW Plt Count MPV Neut % (Auto) Lymph % (Auto) [place] % (Auto) Eos % (Auto) Baso % (Auto) Neut # (Auto) Lymph # (Auto) [place] # (Auto) Eos # (Auto) Baso # (Auto) Neutrophils % (Manual) Band Neutrophils % Lymphocytes % (Manual) Monocytes % (Manual) Hypersegmented Polys Smudge Cells Platelet Estimate Large Platelets Polychromasia Poikilocytosis (manual Anisocytosis (manual) Microcytosis (manual) Spherocytes Tear Drop Cells Ovalocytes [place] Cells ESR 40 H Retic Count PT 19.5 H INR 1.8 APTT 29 Fibrinogen Plt Function Assay Sodium Potassium Chloride Carbon Dioxide Anion Gap BUN Creatinine Est GFR ( Amer) Est GFR (Non-Af Amer) Random Glucose Calcium Phosphorus Magnesium Ferritin Total Bilirubin AST ALT Alkaline Phosphatase C-Reactive Protein Total Protein Albumin Globulin Albumin/Globulin Ratio Vitamin B12 Folate Urine Color Urine Clarity Urine pH Ur Specific [place] Urine Protein Urine Glucose (UA) Urine Ketones Urine Blood Urine Nitrate Urine Bilirubin Urine Urobilinogen Ur Leukocyte Esterase Urine WBC (Auto) Urine RBC (Auto) Ur Squamous Epith Cells Urine Bacteria Hyaline Casts Blood Type B POSITIVE Antibody Screen Negative 10/26/18 10/26/18 10/26/18 05:01 05:14 05:14 WBC 15.5 H RBC 3.64 L Hgb 9.2 L Hct 30.2 L MCV 83.0 MCH 25.2 L MCHC 30.4 L RDW 17.7 H Plt Count 254 MPV 7.9 Neut % (Auto) Lymph % (Auto) [place] % (Auto) Eos % (Auto) Baso % (Auto) Neut # (Auto) Lymph # (Auto) [place] # (Auto) Eos # (Auto) Baso # (Auto) Neutrophils % (Manual) Band Neutrophils % Lymphocytes % (Manual) Monocytes % (Manual) Hypersegmented Polys Smudge Cells Platelet Estimate Large Platelets Polychromasia Poikilocytosis (manual Anisocytosis (manual) Microcytosis (manual) Spherocytes Tear Drop Cells Ovalocytes [place] Cells ESR Retic Count PT INR APTT Fibrinogen Plt Function Assay 93 Sodium 133 Potassium 4.5 Chloride 101 Carbon Dioxide 24 Anion Gap 12 BUN 29 H Creatinine 1.2 Est GFR ( Amer) 55 Est GFR (Non-Af Amer) 45 Random Glucose 114 H D Calcium 7.3 L Phosphorus 2.5 Magnesium 2.2 Ferritin 18.3 Total Bilirubin 0.9 AST 34 ALT 24 Alkaline Phosphatase 56 C-Reactive Protein 60.90 H Total Protein 5.9 L Albumin 3.0 L D Globulin 2.9 Albumin/Globulin Ratio 1.0 Vitamin B12 > 1000 H Folate 11.5 Urine Color Urine Clarity Urine pH Ur Specific [place] Urine Protein Urine Glucose (UA) Urine Ketones Urine Blood Urine Nitrate Urine Bilirubin Urine Urobilinogen Ur Leukocyte Esterase Urine WBC (Auto) Urine RBC (Auto) Ur Squamous Epith Cells Urine Bacteria Hyaline Casts Blood Type Antibody Screen 10/26/18 10/26/18 05:14 05:14 WBC RBC Hgb Hct MCV MCH MCHC RDW Plt Count MPV Neut % (Auto) Lymph % (Auto) [place] % (Auto) Eos % (Auto) Baso % (Auto) Neut # (Auto) Lymph # (Auto) [place] # (Auto) Eos # (Auto) Baso # (Auto) Neutrophils % (Manual) Band Neutrophils % Lymphocytes % (Manual) Monocytes % (Manual) Hypersegmented Polys Smudge Cells Platelet Estimate Large Platelets Polychromasia Poikilocytosis (manual Anisocytosis (manual) Microcytosis (manual) Spherocytes Tear Drop Cells Ovalocytes [place] Cells ESR Retic Count 4.3 H PT 17.2 H INR 1.6 APTT 28 Fibrinogen 319 Plt Function Assay Sodium Potassium Chloride Carbon Dioxide Anion Gap BUN Creatinine Est GFR ( Amer) Est GFR (Non-Af Amer) Random Glucose Calcium Phosphorus Magnesium Ferritin Total Bilirubin AST ALT Alkaline Phosphatase C-Reactive Protein Total Protein Albumin Globulin Albumin/Globulin Ratio Vitamin B12 Folate Urine Color Urine Clarity Urine pH Ur Specific [place] Urine Protein Urine Glucose (UA) Urine Ketones Urine Blood Urine Nitrate Urine Bilirubin Urine Urobilinogen Ur Leukocyte Esterase Urine WBC (Auto) Urine RBC (Auto) Ur Squamous Epith Cells Urine Bacteria Hyaline Casts Blood Type Antibody Screen Radiology Impressions: Radiology Impressions Chest X-Ray 10/25/18 14:06 IMPRESSION: Cardiomegaly. Left-sided dual lead pacemaker. Small left pleural effusion and/or atelectasis/infiltrate. Trace right pleural effusion. Right basilar atelectasis. Abdomen/Pelvis CT 10/25/18 14:28 IMPRESSION: Moderate-sized high density pericardial effusion. Recommend further evaluation with echocardiogram. Moderate-sized bilateral pleural effusions and associated consolidations. Small perihepatic ascites. Nodular hepatic contour; correlate for cirrhosis. Gallbladder wall thickening/pericholecystic edema. Marked mucosal thickening of the right colon; correlate for history of colitis. Small perihepatic ascites. Small pelvic free fluid. Sub cm mesenteric and retroperitoneal lymph nodes, nonspecific. L2-L4, and L5 vertebral body loss of height consistent with age indeterminate compression fractures. Additional findings as above. Findings discussed with SANDRA Dickens on 10/25/18 at 3:56 p.m. Duplex Scan Lower Extremity Artery 10/25/18 14:28 IMPRESSION: Right: No evidence of deep or superficial vein thrombosis of the right lower extremity. Normal valve function noted of the right side. Left: No evidence of deep or superficial vein thrombosis of the left lower extremity. Normal valve function noted of the left side. Review of Systems - Constitutional Constitutional: absent: Fever, Chills, Sweats - EENT Eyes: UNREMARKABLE. absent: Discharge, Itchy Eyes Ears: UNREMARKABLE Nose/Mouth/Throat: UNREMARKABLE. absent: Nose Pain, Dysphagia - Cardiovascular Cardiovascular: UNREMARKABLE. absent: Chest Pain, Chest Pain at Rest - Respiratory Respiratory: UNREMARKABLE. absent: Dyspnea - Gastrointestinal Gastrointestinal: UNREMARKABLE. absent: Abdominal Pain, Diarrhea - Genitourinary Genitourinary: UNREMARKABLE. absent: Hematuria, Pyuria - Musculoskeletal Musculoskeletal: UNREMARKABLE. absent: Arthralgias, Joint Swelling - Integumentary Integumentary: UNREMARKABLE - Neurological Neurological: UNREMARKABLE. absent: Disequilibrium, Headaches - Psychiatric Psychiatric: UNREMARKABLE. absent: Depression Critical Care Progress Note - Prophylaxis GI Prophylaxis GI: PPI - Prophylaxis DVT Prophylaxis DVT: Not Indicated - Nutrition Nutrition: Nutrition Category Date Time Status Liquid Diet [DIET] Diets 10/26/18 Breakfast Active Assessment/Plan - Assessment and Plan (Free Text) Assessment: 62 F w/ PMhx of Afib & pacemaker (on eliquis at home) currently admitted to ICU for monitoring for weakness/ GI bleed, had episode of afib w/ RVR, large pericardial effusion s/p POD # 1 for pericardial window w/ CARMEN drain. Will require possibly an endoscopy for GI bleed. 1) pericardial tamponade 2) afib RVR 3) anemia/ GI bleed Plan: Neuro - A&O x3 Cardio - s/p pericardial window - continue to monitor - currently on cardizem drip - continue to titrate down - give digoxin if low BP and afib - F/u biopsy Resp - vitals wnl - continue to monitor GI - EGD cancelled today due to current cardizem drip - clear liquid diet Heme - H/H stable s/p 2 units PRBCs on admission - WBC downtrending - likely 2/2 to pericardial effusion - F/u IZABELLA, lyme, rehumatoid factor, Quantiforon gold - Ceftriaxone 2g daily Renal - worsening GENE - likely 2/2 to pericardial effusion - trend AM labs - freely voiding PPx: - GI: protonix - DVT: VTE contraindicated due to GI bleed <Ryna Lisa - Last Filed: 10/26/18 14:56> CCU Subjective - Physician Review Critical Care Time Spent (in minutes): 45 CCU Objective - Vital Signs / Intake & Output Vital Signs (Last 4 hours): Vital Signs Pulse Resp BP Pulse Ox 10/26/18 14:05 79 14 87/51 L 94 L 10/26/18 14:00 80 13 94 L 10/26/18 13:35 80 17 94/51 L 93 L 10/26/18 13:06 88 14 103/51 L 92 L 10/26/18 13:00 91 H 13 91 L 10/26/18 12:35 86 21 100/51 L 93 L 10/26/18 12:05 80 13 102/47 L 94 L 10/26/18 12:00 79 12 95 10/26/18 11:35 84 18 108/46 L 93 L 10/26/18 11:05 88 18 105/51 L 92 L 10/26/18 11:00 90 23 92 L Intake and Output (Last 8hrs): Intake & Output 10/25/18 10/26/18 10/26/18 22:59 06:59 14:59 Intake Total 1850.0 170 455 Output Total 660 530 520 Balance 1190.0 -360 -65 Weight 143 lb 4.807 oz Intake: IV 1717.5 10 0 Intake, IV Amount 132.5 160 145 Left AC Distal Port 80 80 70 Left Antecubital 52.5 80 75 Oral 310 Output: Drainage 60 80 Anterior Chest 60 80 Urine 600 450 520 Urine, Voided 600 450 520 Stool 0 Other: # Voids Urine, Voided 1 1 1 - Medications Active Medications: Active Medications Generic Name Dose Route Start Last Admin Trade Name Freq PRN Reason Stop Dose Admin Carvedilol 3.125 mg 10/23/18 19:45 10/23/18 19:44 Coreg PO Not Given BID LAYTON Pantoprazole Sodium 80 mg/ 100 mls @ 10 mls/hr 10/24/18 11:30 10/26/18 05:28 Sodium Chloride IVPB 10 mls/hr .Q10H LAYTON Administration 8 MG/HR Diltiazem HCl 125 mg/ Sodium 125 mls @ 5 mls/hr 10/25/18 14:15 10/26/18 14:15 Chloride IV Not Given .Q24H LAYTON Protocol 5 MG/HR Ceftriaxone Sodium 2 gm/ 100 mls @ 100 mls/hr 10/25/18 22:00 10/26/18 09:59 Sodium Chloride IVPB 100 mls/hr DAILY LAYTON Administration Protocol Sodium Chloride 1,000 mls @ 100 mls/hr 10/26/18 14:45 10/26/18 14:45 Sodium Chloride 0.9% IV 10/27/18 02:45 100 mls/hr .Q10H LAYTON Administration Morphine Sulfate 2 mg 10/25/18 21:20 10/26/18 10:01 Morphine IVP 2 mg Q4 PRN Administration moderate to severe pain - Patient Studies Lab Studies: Microbiology Studies 10/25/18 14:30 Blood Culture - Preliminary Blood NO GROWTH AFTER 24 HOURS 10/25/18 19:41 Gram Stain - Final Pericardial Fluid Body Fluid Culture - Preliminary NO GROWTH AFTER 24 HOURS 10/24/18 14:44 MRSA Culture (Admit) - Final Naris MRSA NOT DETECTED Lab Studies 10/26/18 10/26/18 10/26/18 Range/Units 05:14 05:14 05:14 WBC (4.8-10.8) K/uL RBC (3.80-5.20) Mil/uL Hgb (11.0-16.0) g/dL Hct (34.0-47.0) % MCV (81.0-99.0) fL MCH (27.0-31.0) pg MCHC (33.0-37.0) g/dL RDW (11.5-14.5) % Plt Count (130-400) K/uL MPV (7.2-11.7) fL Neut % (Auto) Lymph % (Auto) [place] % (Auto) Eos % (Auto) Baso % (Auto) Neut # (Auto) Lymph # (Auto) [place] # (Auto) Eos # (Auto) Baso # (Auto) Neutrophils % (Manual) (50-75) % Band Neutrophils % (0-2) % Lymphocytes % (Manual) (20-40) % Monocytes % (Manual) (0-10) % Hypersegmented Polys Smudge Cells Platelet Estimate (NORMAL) Large Platelets Polychromasia Poikilocytosis (manual Anisocytosis (manual) Microcytosis (manual) Spherocytes Tear Drop Cells Ovalocytes Skye Cells ESR (0-20) mm/hr Retic Count 4.3 H (0.5-1.5) % PT 17.2 H (9.7-12.2) SECONDS INR 1.6 APTT 28 (21-34) SECONDS Fibrinogen 319 (200-400) mg/dL Plt Function Assay K/uL Sodium 133 (132-148) mmol/L Potassium 4.5 (3.6-5.2) mmol/L Chloride 101 (98-107) mmol/L Carbon Dioxide 24 (22-30) mmol/L Anion Gap 12 (10-20) BUN 29 H (7-17) mg/dL Creatinine 1.2 (0.7-1.2) mg/dL Est GFR ( Amer) 55 Est GFR (Non-Af Amer) 45 Random Glucose 114 H D (65-105) mg/dL Calcium 7.3 L (8.6-10.4) mg/dl Phosphorus 2.5 (2.5-4.5) mg/dL Magnesium 2.2 (1.6-2.3) mg/dL Ferritin 18.3 ng/mL Total Bilirubin 0.9 (0.2-1.3) mg/dL AST 34 (14-36) U/L ALT 24 (9-52) U/L Alkaline Phosphatase 56 (38-126) U/L C-Reactive Protein 60.90 H (0.0-9.9) mg/L Total Protein 5.9 L (6.3-8.3) g/dL Albumin 3.0 L D (3.5-5.0) g/dL Globulin 2.9 (2.2-3.9) gm/dL Albumin/Globulin Ratio 1.0 (1.0-2.1) Vitamin B12 > 1000 H (239-931) pg/mL Folate 11.5 ng/mL Urine Color (YELLOW) Urine Clarity (Clear) Urine pH (5.0-8.0) Ur Specific [place] (1.003-1.030) Urine Protein (NEGATIVE) mg/dL Urine Glucose (UA) (Normal) mg/dL Urine Ketones (NEGATIVE) mg/dL Urine Blood (NEGATIVE) Urine Nitrate (NEGATIVE) Urine Bilirubin (NEGATIVE) Urine Urobilinogen (0.2-1.0) mg/dL Ur Leukocyte Esterase (Negative) Vargas/uL Urine WBC (Auto) (0-5) /hpf Urine RBC (Auto) (0-3) /hpf Ur Squamous Epith Cells (0-5) /hpf Urine Bacteria (<OCC) Hyaline Casts (0-2) /lpf Blood Type Antibody Screen 10/26/18 10/26/18 10/25/18 Range/Units 05:14 05:01 20:31 WBC 15.5 H (4.8-10.8) K/uL RBC 3.64 L (3.80-5.20) Mil/uL Hgb 9.2 L (11.0-16.0) g/dL Hct 30.2 L (34.0-47.0) % MCV 83.0 (81.0-99.0) fL MCH 25.2 L (27.0-31.0) pg MCHC 30.4 L (33.0-37.0) g/dL RDW 17.7 H (11.5-14.5) % Plt Count 254 (130-400) K/uL MPV 7.9 (7.2-11.7) fL Neut % (Auto) Lymph % (Auto) [place] % (Auto) Eos % (Auto) Baso % (Auto) Neut # (Auto) Lymph # (Auto) [place] # (Auto) Eos # (Auto) Baso # (Auto) Neutrophils % (Manual) (50-75) % Band Neutrophils % (0-2) % Lymphocytes % (Manual) (20-40) % Monocytes % (Manual) (0-10) % Hypersegmented Polys Smudge Cells Platelet Estimate (NORMAL) Large Platelets Polychromasia Poikilocytosis (manual Anisocytosis (manual) Microcytosis (manual) Spherocytes Tear Drop Cells Ovalocytes [place] Cells ESR 40 H (0-20) mm/hr Retic Count (0.5-1.5) % PT (9.7-12.2) SECONDS INR APTT (21-34) SECONDS Fibrinogen (200-400) mg/dL Plt Function Assay 93 K/uL Sodium (132-148) mmol/L Potassium (3.6-5.2) mmol/L Chloride (98-107) mmol/L Carbon Dioxide (22-30) mmol/L Anion Gap (10-20) BUN (7-17) mg/dL Creatinine (0.7-1.2) mg/dL Est GFR ( Amer) Est GFR (Non-Af Amer) Random Glucose (65-105) mg/dL Calcium (8.6-10.4) mg/dl Phosphorus (2.5-4.5) mg/dL Magnesium (1.6-2.3) mg/dL Ferritin ng/mL Total Bilirubin (0.2-1.3) mg/dL AST (14-36) U/L ALT (9-52) U/L Alkaline Phosphatase (38-126) U/L C-Reactive Protein (0.0-9.9) mg/L Total Protein (6.3-8.3) g/dL Albumin (3.5-5.0) g/dL Globulin (2.2-3.9) gm/dL Albumin/Globulin Ratio (1.0-2.1) Vitamin B12 (239-931) pg/mL Folate ng/mL Urine Color (YELLOW) Urine Clarity (Clear) Urine pH (5.0-8.0) Ur Specific [place] (1.003-1.030) Urine Protein (NEGATIVE) mg/dL Urine Glucose (UA) (Normal) mg/dL Urine Ketones (NEGATIVE) mg/dL Urine Blood (NEGATIVE) Urine Nitrate (NEGATIVE) Urine Bilirubin (NEGATIVE) Urine Urobilinogen (0.2-1.0) mg/dL Ur Leukocyte Esterase (Negative) Vargas/uL Urine WBC (Auto) (0-5) /hpf Urine RBC (Auto) (0-3) /hpf Ur Squamous Epith Cells (0-5) /hpf Urine Bacteria (<OCC) Hyaline Casts (0-2) /lpf Blood Type Antibody Screen 10/25/18 10/25/18 10/25/18 Range/Units 17:58 16:41 16:41 WBC (4.8-10.8) K/uL RBC (3.80-5.20) Mil/uL Hgb (11.0-16.0) g/dL Hct (34.0-47.0) % MCV (81.0-99.0) fL MCH (27.0-31.0) pg MCHC (33.0-37.0) g/dL RDW (11.5-14.5) % Plt Count (130-400) K/uL MPV (7.2-11.7) fL Neut % (Auto) Lymph % (Auto) [place] % (Auto) Eos % (Auto) Baso % (Auto) Neut # (Auto) Lymph # (Auto) [place] # (Auto) Eos # (Auto) Baso # (Auto) Neutrophils % (Manual) (50-75) % Band Neutrophils % (0-2) % Lymphocytes % (Manual) (20-40) % Monocytes % (Manual) (0-10) % Hypersegmented Polys Smudge Cells Platelet Estimate (NORMAL) Large Platelets Polychromasia Poikilocytosis (manual Anisocytosis (manual) Microcytosis (manual) Spherocytes Tear Drop Cells Ovalocytes [place] Cells ESR (0-20) mm/hr Retic Count (0.5-1.5) % PT 19.5 H (9.7-12.2) SECONDS INR 1.8 APTT 29 (21-34) SECONDS Fibrinogen (200-400) mg/dL Plt Function Assay K/uL Sodium (132-148) mmol/L Potassium (3.6-5.2) mmol/L Chloride (98-107) mmol/L Carbon Dioxide (22-30) mmol/L Anion Gap (10-20) BUN (7-17) mg/dL Creatinine (0.7-1.2) mg/dL Est GFR ( Amer) Est GFR (Non-Af Amer) Random Glucose (65-105) mg/dL Calcium (8.6-10.4) mg/dl Phosphorus (2.5-4.5) mg/dL Magnesium (1.6-2.3) mg/dL Ferritin ng/mL Total Bilirubin (0.2-1.3) mg/dL AST (14-36) U/L ALT (9-52) U/L Alkaline Phosphatase (38-126) U/L C-Reactive Protein (0.0-9.9) mg/L Total Protein (6.3-8.3) g/dL Albumin (3.5-5.0) g/dL Globulin (2.2-3.9) gm/dL Albumin/Globulin Ratio (1.0-2.1) Vitamin B12 (239-931) pg/mL Folate ng/mL Urine Color Yellow (YELLOW) Urine Clarity Hazy (Clear) Urine pH 5.0 (5.0-8.0) Ur Specific [place] 1.020 (1.003-1.030) Urine Protein 2+ H (NEGATIVE) mg/dL Urine Glucose (UA) Normal (Normal) mg/dL Urine Ketones Negative (NEGATIVE) mg/dL Urine Blood Negative (NEGATIVE) Urine Nitrate Negative (NEGATIVE) Urine Bilirubin Negative (NEGATIVE) Urine Urobilinogen Normal (0.2-1.0) mg/dL Ur Leukocyte Esterase 2+ H (Negative) Vargas/uL Urine WBC (Auto) 17 H (0-5) /hpf Urine RBC (Auto) 4 H (0-3) /hpf Ur Squamous Epith Cells 2 (0-5) /hpf Urine Bacteria Rare (<OCC) Hyaline Casts >20 H (0-2) /lpf Blood Type B POSITIVE Antibody Screen Negative 10/25/18 10/25/18 Range/Units 16:41 06:15 WBC (4.8-10.8) K/uL RBC (3.80-5.20) Mil/uL Hgb (11.0-16.0) g/dL Hct (34.0-47.0) % MCV (81.0-99.0) fL MCH (27.0-31.0) pg MCHC (33.0-37.0) g/dL RDW (11.5-14.5) % Plt Count (130-400) K/uL MPV (7.2-11.7) fL Neut % (Auto) Cancelled Lymph % (Auto) Cancelled [place] % (Auto) Cancelled Eos % (Auto) Cancelled Baso % (Auto) Cancelled Neut # (Auto) Cancelled Lymph # (Auto) Cancelled [place] # (Auto) Cancelled Eos # (Auto) Cancelled Baso # (Auto) Cancelled Neutrophils % (Manual) 62 (50-75) % Band Neutrophils % 1 (0-2) % Lymphocytes % (Manual) 23 (20-40) % Monocytes % (Manual) 14 H (0-10) % Hypersegmented Polys Present Smudge Cells Present Platelet Estimate Normal (NORMAL) Large Platelets Present Polychromasia Slight Poikilocytosis (manual Slight Anisocytosis (manual) Slight Microcytosis (manual) Slight Spherocytes Slight Tear Drop Cells Slight Ovalocytes Slight [place] Cells Slight ESR (0-20) mm/hr Retic Count (0.5-1.5) % PT (9.7-12.2) SECONDS INR APTT (21-34) SECONDS Fibrinogen (200-400) mg/dL Plt Function Assay K/uL Sodium 129 L (132-148) mmol/L Potassium 4.8 (3.6-5.2) mmol/L Chloride 97 L (98-107) mmol/L Carbon Dioxide 19 L (22-30) mmol/L Anion Gap 17 (10-20) BUN 40 H (7-17) mg/dL Creatinine 2.0 H (0.7-1.2) mg/dL Est GFR ( Amer) 30 Est GFR (Non-Af Amer) 25 Random Glucose 168 H D (65-105) mg/dL Calcium 7.4 L (8.6-10.4) mg/dl Phosphorus (2.5-4.5) mg/dL Magnesium (1.6-2.3) mg/dL Ferritin ng/mL Total Bilirubin 1.3 (0.2-1.3) mg/dL AST 41 H (14-36) U/L ALT 26 (9-52) U/L Alkaline Phosphatase 63 (38-126) U/L C-Reactive Protein (0.0-9.9) mg/L Total Protein 7.0 (6.3-8.3) g/dL Albumin 3.8 (3.5-5.0) g/dL Globulin 3.2 (2.2-3.9) gm/dL Albumin/Globulin Ratio 1.2 (1.0-2.1) Vitamin B12 (239-931) pg/mL Folate ng/mL Urine Color (YELLOW) Urine Clarity (Clear) Urine pH (5.0-8.0) Ur Specific [place] (1.003-1.030) Urine Protein (NEGATIVE) mg/dL Urine Glucose (UA) (Normal) mg/dL Urine Ketones (NEGATIVE) mg/dL Urine Blood (NEGATIVE) Urine Nitrate (NEGATIVE) Urine Bilirubin (NEGATIVE) Urine Urobilinogen (0.2-1.0) mg/dL Ur Leukocyte Esterase (Negative) Vargas/uL Urine WBC (Auto) (0-5) /hpf Urine RBC (Auto) (0-3) /hpf Ur Squamous Epith Cells (0-5) /hpf Urine Bacteria (<OCC) Hyaline Casts (0-2) /lpf Blood Type Antibody Screen Laboratory Results - last 24 hr 10/25/18 10/25/18 10/25/18 06:15 16:41 16:41 WBC RBC Hgb Hct MCV MCH MCHC RDW Plt Count MPV Neut % (Auto) Cancelled Lymph % (Auto) Cancelled [place] % (Auto) Cancelled Eos % (Auto) Cancelled Baso % (Auto) Cancelled Neut # (Auto) Cancelled Lymph # (Auto) Cancelled [place] # (Auto) Cancelled Eos # (Auto) Cancelled Baso # (Auto) Cancelled Neutrophils % (Manual) 62 Band Neutrophils % 1 Lymphocytes % (Manual) 23 Monocytes % (Manual) 14 H Hypersegmented Polys Present Smudge Cells Present Platelet Estimate Normal Large Platelets Present Polychromasia Slight Poikilocytosis (manual Slight Anisocytosis (manual) Slight Microcytosis (manual) Slight Spherocytes Slight Tear Drop Cells Slight Ovalocytes Slight [place] Cells Slight ESR Retic Count PT INR APTT Fibrinogen Plt Function Assay Sodium 129 L Potassium 4.8 Chloride 97 L Carbon Dioxide 19 L Anion Gap 17 BUN 40 H Creatinine 2.0 H Est GFR ( Amer) 30 Est GFR (Non-Af Amer) 25 Random Glucose 168 H D Calcium 7.4 L Phosphorus Magnesium Ferritin Total Bilirubin 1.3 AST 41 H ALT 26 Alkaline Phosphatase 63 C-Reactive Protein Total Protein 7.0 Albumin 3.8 Globulin 3.2 Albumin/Globulin Ratio 1.2 Vitamin B12 Folate Urine Color Yellow Urine Clarity Hazy Urine pH 5.0 Ur Specific [place] 1.020 Urine Protein 2+ H Urine Glucose (UA) Normal Urine Ketones Negative Urine Blood Negative Urine Nitrate Negative Urine Bilirubin Negative Urine Urobilinogen Normal Ur Leukocyte Esterase 2+ H Urine WBC (Auto) 17 H Urine RBC (Auto) 4 H Ur Squamous Epith Cells 2 Urine Bacteria Rare Hyaline Casts >20 H Blood Type Antibody Screen 10/25/18 10/25/18 10/25/18 16:41 17:58 20:31 WBC RBC Hgb Hct MCV MCH MCHC RDW Plt Count MPV Neut % (Auto) Lymph % (Auto) [place] % (Auto) Eos % (Auto) Baso % (Auto) Neut # (Auto) Lymph # (Auto) [place] # (Auto) Eos # (Auto) Baso # (Auto) Neutrophils % (Manual) Band Neutrophils % Lymphocytes % (Manual) Monocytes % (Manual) Hypersegmented Polys Smudge Cells Platelet Estimate Large Platelets Polychromasia Poikilocytosis (manual Anisocytosis (manual) Microcytosis (manual) Spherocytes Tear Drop Cells Ovalocytes [place] Cells ESR 40 H Retic Count PT 19.5 H INR 1.8 APTT 29 Fibrinogen Plt Function Assay Sodium Potassium Chloride Carbon Dioxide Anion Gap BUN Creatinine Est GFR ( Amer) Est GFR (Non-Af Amer) Random Glucose Calcium Phosphorus Magnesium Ferritin Total Bilirubin AST ALT Alkaline Phosphatase C-Reactive Protein Total Protein Albumin Globulin Albumin/Globulin Ratio Vitamin B12 Folate Urine Color Urine Clarity Urine pH Ur Specific [place] Urine Protein Urine Glucose (UA) Urine Ketones Urine Blood Urine Nitrate Urine Bilirubin Urine Urobilinogen Ur Leukocyte Esterase Urine WBC (Auto) Urine RBC (Auto) Ur Squamous Epith Cells Urine Bacteria Hyaline Casts Blood Type B POSITIVE Antibody Screen Negative 10/26/18 10/26/18 10/26/18 05:01 05:14 05:14 WBC 15.5 H RBC 3.64 L Hgb 9.2 L Hct 30.2 L MCV 83.0 MCH 25.2 L MCHC 30.4 L RDW 17.7 H Plt Count 254 MPV 7.9 Neut % (Auto) Lymph % (Auto) [place] % (Auto) Eos % (Auto) Baso % (Auto) Neut # (Auto) Lymph # (Auto) [place] # (Auto) Eos # (Auto) Baso # (Auto) Neutrophils % (Manual) Band Neutrophils % Lymphocytes % (Manual) Monocytes % (Manual) Hypersegmented Polys Smudge Cells Platelet Estimate Large Platelets Polychromasia Poikilocytosis (manual Anisocytosis (manual) Microcytosis (manual) Spherocytes Tear Drop Cells Ovalocytes [place] Cells ESR Retic Count PT INR APTT Fibrinogen Plt Function Assay 93 Sodium 133 Potassium 4.5 Chloride 101 Carbon Dioxide 24 Anion Gap 12 BUN 29 H Creatinine 1.2 Est GFR ( Amer) 55 Est GFR (Non-Af Amer) 45 Random Glucose 114 H D Calcium 7.3 L Phosphorus 2.5 Magnesium 2.2 Ferritin 18.3 Total Bilirubin 0.9 AST 34 ALT 24 Alkaline Phosphatase 56 C-Reactive Protein 60.90 H Total Protein 5.9 L Albumin 3.0 L D Globulin 2.9 Albumin/Globulin Ratio 1.0 Vitamin B12 > 1000 H Folate 11.5 Urine Color Urine Clarity Urine pH Ur Specific [place] Urine Protein Urine Glucose (UA) Urine Ketones Urine Blood Urine Nitrate Urine Bilirubin Urine Urobilinogen Ur Leukocyte Esterase Urine WBC (Auto) Urine RBC (Auto) Ur Squamous Epith Cells Urine Bacteria Hyaline Casts Blood Type Antibody Screen 10/26/18 10/26/18 05:14 05:14 WBC RBC Hgb Hct MCV MCH MCHC RDW Plt Count MPV Neut % (Auto) Lymph % (Auto) [place] % (Auto) Eos % (Auto) Baso % (Auto) Neut # (Auto) Lymph # (Auto) [place] # (Auto) Eos # (Auto) Baso # (Auto) Neutrophils % (Manual) Band Neutrophils % Lymphocytes % (Manual) Monocytes % (Manual) Hypersegmented Polys Smudge Cells Platelet Estimate Large Platelets Polychromasia Poikilocytosis (manual Anisocytosis (manual) Microcytosis (manual) Spherocytes Tear Drop Cells Ovalocytes [place] Cells ESR Retic Count 4.3 H PT 17.2 H INR 1.6 APTT 28 Fibrinogen 319 Plt Function Assay Sodium Potassium Chloride Carbon Dioxide Anion Gap BUN Creatinine Est GFR ( Amer) Est GFR (Non-Af Amer) Random Glucose Calcium Phosphorus Magnesium Ferritin Total Bilirubin AST ALT Alkaline Phosphatase C-Reactive Protein Total Protein Albumin Globulin Albumin/Globulin Ratio Vitamin B12 Folate Urine Color Urine Clarity Urine pH Ur Specific [place] Urine Protein Urine Glucose (UA) Urine Ketones Urine Blood Urine Nitrate Urine Bilirubin Urine Urobilinogen Ur Leukocyte Esterase Urine WBC (Auto) Urine RBC (Auto) Ur Squamous Epith Cells Urine Bacteria Hyaline Casts Blood Type Antibody Screen Radiology Impressions: Radiology Impressions Chest X-Ray 10/25/18 14:06 IMPRESSION: Cardiomegaly. Left-sided dual lead pacemaker. Small left pleural effusion and/or atelectasis/infiltrate. Trace right pleural effusion. Right basilar atelectasis. Abdomen/Pelvis CT 10/25/18 14:28 IMPRESSION: Moderate-sized high density pericardial effusion. Recommend further evaluation with echocardiogram. Moderate-sized bilateral pleural effusions and associated consolidations. Small perihepatic ascites. Nodular hepatic contour; correlate for cirrhosis. Gallbladder wall thickening/pericholecystic edema. Marked mucosal thickening of the right colon; correlate for history of colitis. Small perihepatic ascites. Small pelvic free fluid. Sub cm mesenteric and retroperitoneal lymph nodes, nonspecific. L2-L4, and L5 vertebral body loss of height consistent with age indeterminate compression fractures. Additional findings as above. Findings discussed with SANDRA Dickens on 10/25/18 at 3:56 p.m. Duplex Scan Lower Extremity Artery 10/25/18 14:28 IMPRESSION: Right: No evidence of deep or superficial vein thrombosis of the right lower extremity. Normal valve function noted of the right side. Left: No evidence of deep or superficial vein thrombosis of the left lower extremity. Normal valve function noted of the left side. Critical Care Progress Note - Nutrition Nutrition: Nutrition Category Date Time Status Liquid Diet [DIET] Diets 10/26/18 Breakfast Active Attending/Attestation - Attestation I have personally seen and examined this patient.: Yes I have fully participated in the care of the patient.: Yes I have reviewed all pertinent clinical information: Yes Notes (Text): 10/26/18 14:55 Patient seen and examined in the intensive care unit. Status post pericardial window for tamponade Anticoagulation on hold Taper off Cardizem drip as tolerated
--- NOTE | 2018-10-26 13:01 | CP.PCM.PN ---
Subjective - Date & Time of Evaluation Date of Evaluation: 10/26/18 Time of Evaluation: 12:35 - Subjective Subjective: f/u anemia. present Feels weak. Denies RB, melena, abd pain, fever, chills, SZ, LOC, tremor, LARA, cough, fever, Objective - Vital Signs/Intake and Output Vital Signs (last 24 hours): Temp Pulse Resp BP Pulse Ox 98.8 F 86 22 99/48 L 91 L 10/26/18 08:00 10/26/18 09:05 10/26/18 09:05 10/26/18 09:05 10/26/18 09:05 Intake and Output: 10/26/18 10/26/18 06:59 18:59 Intake Total 260.0 40 Output Total 990 220 Balance -730.0 -180 - Medications Medications: Current Medications Carvedilol (Coreg) 3.125 mg PO BID [facility] Last Admin: 10/23/18 19:44 Dose: Not Given Pantoprazole Sodium 80 mg/ (Sodium Chloride) 100 mls @ 10 mls/hr IVPB .Q10H [facility] Last Admin: 10/26/18 05:28 Dose: 10 mls/hr Diltiazem HCl 125 mg/ Sodium (Chloride) 125 mls @ 5 mls/hr IV .Q24H [facility]; Protocol Last Admin: 10/26/18 05:00 Dose: 10 mg/hr, 10 mls/hr Ceftriaxone Sodium 2 gm/ (Sodium Chloride) 100 mls @ 100 mls/hr IVPB DAILY [facility]; Protocol Last Admin: 10/26/18 09:59 Dose: 100 mls/hr Morphine Sulfate (Morphine) 2 mg IVP Q4 PRN PRN Reason: moderate to severe pain Last Admin: 10/26/18 10:01 Dose: 2 mg - Labs Labs: 10/26/18 05:14 10/26/18 05:14 PT 17.2 SECONDS (9.7-12.2) H 10/26/18 05:14 INR 1.6 10/26/18 05:14 APTT 28 SECONDS (21-34) 10/26/18 05:14 - Constitutional Appears: Non-toxic - Respiratory Exam Respiratory Exam: Clear to Ausculation Bilateral - Cardiovascular Exam Cardiovascular Exam: RRR - GI/Abdominal Exam GI & Abdominal Exam: Soft, Normal Bowel Sounds. absent: Tenderness - Extremities Exam Extremities Exam: absent: Calf Tenderness - Neurological Exam Neurological Exam: Alert, Awake, Oriented x3 Assessment and Plan (1) Coagulopathy Assessment & Plan: Improving. Question etiology. Seen by Hematology Status: Acute (2) Symptomatic anemia Assessment & Plan: Hb 9.2. No sign of bleeding. Hold EGD until medicall stable. Status: Acute (3) Atrial fibrillation Status: Acute (4) Hypertension Status: Chronic (5) Pacemaker Status: Acute (6) Pericardial effusion Assessment & Plan: s/p window Status: Acute
[2018-10-26] MEDS: Sodium Chloride 0.9% 1,000 ML IV SCH (14:45)
--- NOTE | 2018-10-26 15:20 | CP.PCM.PN ---
Subjective - Date & Time of Evaluation Date of Evaluation: 10/26/18 Time of Evaluation: 15:21 - Subjective Subjective: Patient in s/p cardiac tamponade. At present patient c/o weakness. W/U in progress to determine the cause of her condition. Objective - Vital Signs/Intake and Output Vital Signs (last 24 hours): Temp Pulse Resp BP Pulse Ox 98.8 F 79 14 87/51 L 94 L 10/26/18 08:00 10/26/18 14:05 10/26/18 14:05 10/26/18 14:05 10/26/18 14:05 Intake and Output: 10/26/18 10/26/18 11:59 23:59 Intake Total 250 355 Output Total 600 0 Balance -350 355 - Medications Medications: Current Medications Carvedilol (Coreg) 3.125 mg PO BID [facility] Last Admin: 10/23/18 19:44 Dose: Not Given Pantoprazole Sodium 80 mg/ (Sodium Chloride) 100 mls @ 10 mls/hr IVPB .Q10H [facility] Last Admin: 10/26/18 05:28 Dose: 10 mls/hr Diltiazem HCl 125 mg/ Sodium (Chloride) 125 mls @ 5 mls/hr IV .Q24H [facility]; Protocol Last Admin: 10/26/18 14:15 Dose: Not Given Ceftriaxone Sodium 2 gm/ (Sodium Chloride) 100 mls @ 100 mls/hr IVPB DAILY [facility]; Protocol Last Admin: 10/26/18 09:59 Dose: 100 mls/hr Sodium Chloride (Sodium Chloride 0.9%) 1,000 mls @ 100 mls/hr IV .Q10H [facility] Stop: 10/27/18 02:45 Last Admin: 10/26/18 14:45 Dose: 100 mls/hr Morphine Sulfate (Morphine) 2 mg IVP Q4 PRN PRN Reason: moderate to severe pain Last Admin: 10/26/18 10:01 Dose: 2 mg - Labs Labs: 10/26/18 05:14 10/26/18 05:14 PT 17.2 SECONDS (9.7-12.2) H 10/26/18 05:14 INR 1.6 10/26/18 05:14 APTT 28 SECONDS (21-34) 10/26/18 05:14 - Constitutional Appears: Chronically Ill - Head Exam Head Exam: ATRAUMATIC, NORMAL INSPECTION, NORMOCEPHALIC - Eye Exam Eye Exam: Normal appearance - ENT Exam ENT Exam: Mucous Membranes Dry - Neck Exam Neck Exam: Full ROM - Respiratory Exam Respiratory Exam: Decreased Breath Sounds - Cardiovascular Exam Cardiovascular Exam: REGULAR RHYTHM, +S1, +S2 - GI/Abdominal Exam GI & Abdominal Exam: Normal Bowel Sounds - Extremities Exam Extremities Exam: Normal Inspection - Neurological Exam Neurological Exam: Alert, Awake, CN II-XII Intact - Psychiatric Exam Psychiatric exam: Flat Affect - Skin Skin Exam: Pallor Assessment and Plan (1) Rapid atrial fibrillation Status: Acute (2) Symptomatic anemia Status: Acute (3) Atrial fibrillation Status: Acute (4) Hypertensive cardiovascular disease Status: Acute (5) Wide-complex tachycardia Status: Acute (6) Hypertension Status: Chronic (7) Pericardial effusion Status: Acute (8) Cardiac tamponade Status: Acute - Assessment and Plan (Free Text) Plan: Continue present rx
--- NOTE | 2018-10-26 16:00 | CP.PCM.CON ---
History of Present Illness - History of Present Illness History of Present Illness: INFECTIOUS DISEASE ICU CONSULTATION MARK ANTHONY DOLAN MD,FACP ICU 12 10/26/2018 CHART REVIEWED P[T EXAMINED CASE DISCUSSED THIS PATIENT IS A 62 YEAR OLD WHITE FEMALE ADMITTED WITH WEAKNESS, RAPID ATRIAL FIB, NEAR SYNCOPE AND FOUND ALSO TO HAVE A HGH OF ~ 6.0. AN INFECTIOUS DISEASE EVALUATION/CONSULTATION REQUESTED 2ND TO PERICARDIAL EFFUSION/TAMPONADE/REQUIRING A PERICARDIAL WINDOW-URGENTLY PMH: HTN OSTEOPOROSIS GI ULCERS CHRONIC ATRIAL FIB, APPARENTLY ON ELIQUIS PACEMAKER MIGRAINES TACHYARRYTHMIA HYSTERECTOMY FAMILY HX NOTED DENIES ALLERGIES TO MEDICINE NO TOBACCO NO ETOH NO RECENT TRAVEL VSS NOTES AWAKE BUT TIRED S/P PERICARDIAL WINDOW COR TACYCARDIA ABD SOFT EXT NOT CYANOTIC NEURO NOTED IMPRESSION FORM THE INFECTIOUS DISEASE POINT OF VIEW, PERICARDIAL EFFUSIONS, MOST PROBABLY FROM ELIQUIS BUT ONE NEEDS TO R/O-CONSIDER THE FOLLOWING; INFLAMMATION, VASCULAR, IATROGENIC, NEOPLASTIC,IDIOPATHIC-JUST TO MENTION A FEW VIRAL ISSUES: [place] A/B, ECHO, CMV, HERPES, EVEN HIV HEMORRHAGIC: MALIGNANCY 6-20%, RADIATION, MEDS-FOR HTN AND ANTICOGULANTS. ID: LUPUS HYPOTHROID LYME(?). C/S TAKEN, CYTOLOGY, HOPEFULLY SENT VANCOMYCIN GIVEN, ADD ROCEPHIN 2GM IVPB OD LABS ORDERED WITH LUIZ FLORES TO FOLLOW AND MANAGE ACCORDINGLY. MARK ANTHONY DOLAN MD, FACP Past Patient History - Past Medical History & Family History Past Medical History?: Yes - Past Social History Smoking Status: Never Smoked - CARDIAC Hx Cardiac Disorders: Yes Hx Hypertension: Yes Hx Pacemaker: Yes - PULMONARY Hx Respiratory Disorders: No - NEUROLOGICAL Hx Neurological Disorder: No - HEENT Hx HEENT Problems: No - RENAL Hx Chronic Kidney Disease: No - ENDOCRINE/METABOLIC Hx Endocrine Disorders: No - HEMATOLOGICAL/ONCOLOGICAL Hx Blood Disorders: Yes Hx Anemia: Yes - INTEGUMENTARY Hx Dermatological Problems: No - MUSCULOSKELETAL/RHEUMATOLOGICAL Hx Musculoskeletal Disorders: No Hx Falls: No - GENITOURINARY/GYNECOLOGICAL Hx Genitourinary Disorders: No - PSYCHIATRIC Hx Psychophysiologic Disorder: No Hx Substance Use: No - SURGICAL HISTORY Hx Surgeries: Yes Hx Hysterectomy: Yes Other/Comment: lung surgery =due to small [id number] - ANESTHESIA Hx Anesthesia: Yes Hx Anesthesia Reactions: No Hx Malignant Hyperthermia: No Meds Allergies/Adverse Reactions: Allergies Allergy/AdvReac Type Severity Reaction Status Date / Time No Known Allergies Allergy Verified 10/23/18 09:05 - Medications Medications: Current Medications Carvedilol (Coreg) 3.125 mg PO BID [facility] Last Admin: 10/23/18 19:44 Dose: Not Given Pantoprazole Sodium 80 mg/ (Sodium Chloride) 100 mls @ 10 mls/hr IVPB .Q10H [facility] Last Admin: 10/26/18 15:19 Dose: Not Given Diltiazem HCl 125 mg/ Sodium (Chloride) 125 mls @ 5 mls/hr IV .Q24H [facility]; Protocol Last Admin: 10/26/18 14:15 Dose: Not Given Ceftriaxone Sodium 2 gm/ (Sodium Chloride) 100 mls @ 100 mls/hr IVPB DAILY [facility]; Protocol Last Admin: 10/26/18 09:59 Dose: 100 mls/hr Sodium Chloride (Sodium Chloride 0.9%) 1,000 mls @ 100 mls/hr IV .Q10H [facility] Stop: 10/27/18 02:45 Last Admin: 10/26/18 14:45 Dose: 100 mls/hr Morphine Sulfate (Morphine) 2 mg IVP Q4 PRN PRN Reason: moderate to severe pain Last Admin: 10/26/18 10:01 Dose: 2 mg Results - Vital Signs Recent Vital Signs: Last Vital Signs Temp 98.8 F 10/26/18 08:00 Pulse 79 10/26/18 14:05 Resp 14 10/26/18 14:05 BP 87/51 L 10/26/18 14:05 Pulse Ox 94 L 10/26/18 14:05 - Labs Result Diagrams: 10/26/18 05:14 10/26/18 05:14 Labs: Laboratory Results - last 24 hr 10/25/18 10/25/18 10/25/18 06:15 16:41 16:41 WBC RBC Hgb Hct MCV MCH MCHC RDW Plt Count MPV Neut % (Auto) Cancelled Lymph % (Auto) Cancelled Rankin % (Auto) Cancelled Eos % (Auto) Cancelled Baso % (Auto) Cancelled Neut # (Auto) Cancelled Lymph # (Auto) Cancelled Rankin # (Auto) Cancelled Eos # (Auto) Cancelled Baso # (Auto) Cancelled Neutrophils % (Manual) 62 Band Neutrophils % 1 Lymphocytes % (Manual) 23 Monocytes % (Manual) 14 H Hypersegmented Polys Present Smudge Cells Present Platelet Estimate Normal Large Platelets Present Polychromasia Slight Poikilocytosis (manual Slight Anisocytosis (manual) Slight Microcytosis (manual) Slight Spherocytes Slight Tear Drop Cells Slight Ovalocytes Slight [place] Cells Slight ESR Retic Count PT INR APTT Fibrinogen Plt Function Assay Sodium 129 L Potassium 4.8 Chloride 97 L Carbon Dioxide 19 L Anion Gap 17 BUN 40 H Creatinine 2.0 H Est GFR ( Amer) 30 Est GFR (Non-Af Amer) 25 Random Glucose 168 H D Calcium 7.4 L Phosphorus Magnesium Ferritin Total Bilirubin 1.3 AST 41 H ALT 26 Alkaline Phosphatase 63 C-Reactive Protein Total Protein 7.0 Albumin 3.8 Globulin 3.2 Albumin/Globulin Ratio 1.2 Vitamin B12 Folate Urine Color Yellow Urine Clarity Hazy Urine pH 5.0 Ur Specific [place] 1.020 Urine Protein 2+ H Urine Glucose (UA) Normal Urine Ketones Negative Urine Blood Negative Urine Nitrate Negative Urine Bilirubin Negative Urine Urobilinogen Normal Ur Leukocyte Esterase 2+ H Urine WBC (Auto) 17 H Urine RBC (Auto) 4 H Ur Squamous Epith Cells 2 Urine Bacteria Rare Hyaline Casts >20 H Blood Type Antibody Screen 10/25/18 10/25/18 10/25/18 16:41 17:58 20:31 WBC RBC Hgb Hct MCV MCH MCHC RDW Plt Count MPV Neut % (Auto) Lymph % (Auto) Rankin % (Auto) Eos % (Auto) Baso % (Auto) Neut # (Auto) Lymph # (Auto) Rankin # (Auto) Eos # (Auto) Baso # (Auto) Neutrophils % (Manual) Band Neutrophils % Lymphocytes % (Manual) Monocytes % (Manual) Hypersegmented Polys Smudge Cells Platelet Estimate Large Platelets Polychromasia Poikilocytosis (manual Anisocytosis (manual) Microcytosis (manual) Spherocytes Tear Drop Cells Ovalocytes [place] Cells ESR 40 H Retic Count PT 19.5 H INR 1.8 APTT 29 Fibrinogen Plt Function Assay Sodium Potassium Chloride Carbon Dioxide Anion Gap BUN Creatinine Est GFR ( Amer) Est GFR (Non-Af Amer) Random Glucose Calcium Phosphorus Magnesium Ferritin Total Bilirubin AST ALT Alkaline Phosphatase C-Reactive Protein Total Protein Albumin Globulin Albumin/Globulin Ratio Vitamin B12 Folate Urine Color Urine Clarity Urine pH Ur Specific [place] Urine Protein Urine Glucose (UA) Urine Ketones Urine Blood Urine Nitrate Urine Bilirubin Urine Urobilinogen Ur Leukocyte Esterase Urine WBC (Auto) Urine RBC (Auto) Ur Squamous Epith Cells Urine Bacteria Hyaline Casts Blood Type B POSITIVE Antibody Screen Negative 10/26/18 10/26/18 10/26/18 05:01 05:14 05:14 WBC 15.5 H RBC 3.64 L Hgb 9.2 L Hct 30.2 L MCV 83.0 MCH 25.2 L MCHC 30.4 L RDW 17.7 H Plt Count 254 MPV 7.9 Neut % (Auto) Lymph % (Auto) Rankin % (Auto) Eos % (Auto) Baso % (Auto) Neut # (Auto) Lymph # (Auto) Rankin # (Auto) Eos # (Auto) Baso # (Auto) Neutrophils % (Manual) Band Neutrophils % Lymphocytes % (Manual) Monocytes % (Manual) Hypersegmented Polys Smudge Cells Platelet Estimate Large Platelets Polychromasia Poikilocytosis (manual Anisocytosis (manual) Microcytosis (manual) Spherocytes Tear Drop Cells Ovalocytes [place] Cells ESR Retic Count PT INR APTT Fibrinogen Plt Function Assay 93 Sodium 133 Potassium 4.5 Chloride 101 Carbon Dioxide 24 Anion Gap 12 BUN 29 H Creatinine 1.2 Est GFR ( Amer) 55 Est GFR (Non-Af Amer) 45 Random Glucose 114 H D Calcium 7.3 L Phosphorus 2.5 Magnesium 2.2 Ferritin 18.3 Total Bilirubin 0.9 AST 34 ALT 24 Alkaline Phosphatase 56 C-Reactive Protein 60.90 H Total Protein 5.9 L Albumin 3.0 L D Globulin 2.9 Albumin/Globulin Ratio 1.0 Vitamin B12 > 1000 H Folate 11.5 Urine Color Urine Clarity Urine pH Ur Specific [place] Urine Protein Urine Glucose (UA) Urine Ketones Urine Blood Urine Nitrate Urine Bilirubin Urine Urobilinogen Ur Leukocyte Esterase Urine WBC (Auto) Urine RBC (Auto) Ur Squamous Epith Cells Urine Bacteria Hyaline Casts Blood Type Antibody Screen 10/26/18 10/26/18 05:14 05:14 WBC RBC Hgb Hct MCV MCH MCHC RDW Plt Count MPV Neut % (Auto) Lymph % (Auto) [place] % (Auto) Eos % (Auto) Baso % (Auto) Neut # (Auto) Lymph # (Auto) Rank[place] # (Auto) Eos # (Auto) Baso # (Auto) Neutrophils % (Manual) Band Neutrophils % Lymphocytes % (Manual) Monocytes % (Manual) Hypersegmented Polys Smudge Cells Platelet Estimate Large Platelets Polychromasia Poikilocytosis (manual Anisocytosis (manual) Microcytosis (manual) Spherocytes Tear Drop Cells Ovalocytes [place] Cells ESR Retic Count 4.3 H PT 17.2 H INR 1.6 APTT 28 Fibrinogen 319 Plt Function Assay Sodium Potassium Chloride Carbon Dioxide Anion Gap BUN Creatinine Est GFR ( Amer) Est GFR (Non-Af Amer) Random Glucose Calcium Phosphorus Magnesium Ferritin Total Bilirubin AST ALT Alkaline Phosphatase C-Reactive Protein Total Protein Albumin Globulin Albumin/Globulin Ratio Vitamin B12 Folate Urine Color Urine Clarity Urine pH Ur Specific [place] Urine Protein Urine Glucose (UA) Urine Ketones Urine Blood Urine Nitrate Urine Bilirubin Urine Urobilinogen Ur Leukocyte Esterase Urine WBC (Auto) Urine RBC (Auto) Ur Squamous Epith Cells Urine Bacteria Hyaline Casts Blood Type Antibody Screen
--- NOTE | 2018-10-26 23:02 | CP.PCM.PN ---
Subjective - Date & Time of Evaluation Date of Evaluation: 10/26/18 Time of Evaluation: 18:00 - Subjective Subjective: Appears more alert, daughter at bedside. Objective - Vital Signs/Intake and Output Vital Signs (last 24 hours): Temp Pulse Resp BP Pulse Ox 98.8 F 79 12 102/49 L 96 10/26/18 20:00 10/26/18 22:35 10/26/18 22:35 10/26/18 22:35 10/26/18 22:35 Intake and Output: 10/26/18 10/27/18 18:59 06:59 Intake Total 885 490 Output Total 720 290 Balance 165 200 - Medications Medications: Current Medications Carvedilol (Coreg) 3.125 mg PO BID [facility] Last Admin: 10/23/18 19:44 Dose: Not Given Pantoprazole Sodium 80 mg/ (Sodium Chloride) 100 mls @ 10 mls/hr IVPB .Q10H [facility] Last Admin: 10/26/18 17:00 Dose: 10 mls/hr Diltiazem HCl 125 mg/ Sodium (Chloride) 125 mls @ 5 mls/hr IV .Q24H [facility]; Protocol Last Admin: 10/26/18 14:15 Dose: Not Given Ceftriaxone Sodium 2 gm/ (Sodium Chloride) 100 mls @ 100 mls/hr IVPB DAILY [facility]; Protocol Last Admin: 10/26/18 09:59 Dose: 100 mls/hr Sodium Chloride (Sodium Chloride 0.9%) 1,000 mls @ 100 mls/hr IV .Q10H [facility] Stop: 10/27/18 02:45 Last Admin: 10/26/18 14:45 Dose: 100 mls/hr Morphine Sulfate (Morphine) 2 mg IVP Q4 PRN PRN Reason: moderate to severe pain Last Admin: 10/26/18 21:40 Dose: 2 mg - Labs Labs: 10/26/18 05:14 10/26/18 05:14 PT 17.2 SECONDS (9.7-12.2) H 10/26/18 05:14 INR 1.6 10/26/18 05:14 APTT 28 SECONDS (21-34) 10/26/18 05:14 - Head Exam Head Exam: ATRAUMATIC - Eye Exam Eye Exam: Normal appearance - ENT Exam ENT Exam: Mucous Membranes Dry - Respiratory Exam Respiratory Exam: Decreased Breath Sounds - Cardiovascular Exam Cardiovascular Exam: +S1, +S2 - GI/Abdominal Exam GI & Abdominal Exam: Normal Bowel Sounds Assessment and Plan (1) Platelet dysfunction Assessment & Plan: suspect related to antiplatelet and uremia does not currently require platelet transfusion or DDAVP will trend Status: Acute (2) Coagulopathy Assessment & Plan: secondary to anticoagulation; has been stopped likely nutritional component improving Status: Acute (3) Anemia Assessment & Plan: iron deficiency anemia; will start IV iron GI following; further w/u when more stable anticoagulation/antiplatelet held transfusion support PRN Status: Acute (4) Pericardial effusion Assessment & Plan: follow up fluid analysis Status: Acute
--- NOTE | 2018-10-26 23:33 | CP.PCM.PN ---
Subjective - Date & Time of Evaluation Date of Evaluation: 10/26/18 Time of Evaluation: 11:05 - Subjective Subjective: Patient seen and evaluated Less dyspnea Still some drainage from pericardial window Review of Systems - Constitutional Constitutional: absent: Anorexia, Chills, Fatigue, Fever, Headache, Weakness - EENT Eyes: absent: Change in Vision Ears: absent: Decreased Hearing, Abnormal Hearing - Cardiovascular Cardiovascular: absent: Chest Pain, Chest Pain at Rest, Chest Pain with Activity, Diaphoresis, Dyspnea, Dyspnea on Exertion, Irregular Heart Rhythm, Lightheadedness, Palpitations, Rapid Heart Rate, Slow Heart Rate, Syncope - Respiratory Respiratory: absent: Cough, Dyspnea, Hemoptysis, Dyspnea on Exertion - Gastrointestinal Gastrointestinal: absent: Abdominal Pain, Change in Bowel Habits, Change in Stool Character, Coffee Ground Emesis, Constipation, Diarrhea - Genitourinary Genitourinary: absent: Difficulty Urinating, Dysuria, Hematuria - Musculoskeletal Musculoskeletal: absent: Arthralgias, Joint Swelling - Neurological Neurological: absent: Abnormal Hearing, Confusion, Dizziness, Numbness, Headaches, Syncope - Psychiatric Psychiatric: absent: Behavioral Changes, Confusion - Endocrine Endocrine: absent: Change in Body Appearance, Excessive Sweating, Palpitations, Polyuria Physical Exam - Constitutional Appears: Well, Non-toxic, No Acute Distress - Head Exam Head Exam: ATRAUMATIC, NORMOCEPHALIC - Eye Exam Eye Exam: EOMI, Normal appearance - ENT Exam ENT Exam: Mucous Membranes Moist - Neck Exam Neck exam: Positive for: Normal Inspection - Respiratory Exam Respiratory Exam: Clear to Auscultation Bilateral, NORMAL BREATHING PATTERN. absent: Rales, Rhonchi, Wheezes, Respiratory Distress - Cardiovascular Exam Cardiovascular Exam: Tachycardia, +S1, +S2. absent: Gallop, Rubs, Systolic Murmur - GI/Abdominal Exam GI & Abdominal Exam: Normal Bowel Sounds, Soft. absent: Tenderness - Extremities Exam Extremities exam: Positive for: normal inspection - Neurological Exam Neurological exam: Alert, CN II-XII Intact, Oriented x3 - Psychiatric Exam Psychiatric exam: Normal Affect, Normal Mood - Skin Skin Exam: Dry, Intact, Normal Color, Warm Assessment and Plan (1) s/p cardiac Tamponade s/p Window Assessment & Plan: Repeat ECHO in am Status: Acute (2) Coagulopathy Assessment & Plan: secondary to anticoagulation; has been stopped likely nutritional component improving Status: Acute (3) Anemia Assessment & Plan: iron deficiency anemia; will start IV iron GI following; further w/u when more stable anticoagulation/antiplatelet held transfusion support PRN Status: Acute (4) A Fib Assessment & Plan: Anticoagulants held Objective - Vital Signs/Intake and Output Vital Signs (last 24 hours): Temp Pulse Resp BP Pulse Ox 98.8 F 79 12 102/49 L 96 10/26/18 20:00 10/26/18 22:35 10/26/18 22:35 10/26/18 22:35 10/26/18 22:35 Intake and Output: 10/26/18 10/27/18 18:59 06:59 Intake Total 885 490 Output Total 720 290 Balance 165 200 - Medications Medications: Current Medications Carvedilol (Coreg) 3.125 mg PO BID [facility] Last Admin: 10/23/18 19:44 Dose: Not Given Ferric Sodium Gluconate Complex (Ferrlecit) 125 mg IVPB DAILY [facility] Stop: 11/04/18 10:01 Pantoprazole Sodium 80 mg/ (Sodium Chloride) 100 mls @ 10 mls/hr IVPB .Q10H [facility] Last Admin: 10/26/18 17:00 Dose: 10 mls/hr Diltiazem HCl 125 mg/ Sodium (Chloride) 125 mls @ 5 mls/hr IV .Q24H [facility]; Protocol Last Admin: 10/26/18 14:15 Dose: Not Given Ceftriaxone Sodium 2 gm/ (Sodium Chloride) 100 mls @ 100 mls/hr IVPB DAILY [facility]; Protocol Last Admin: 10/26/18 09:59 Dose: 100 mls/hr Sodium Chloride (Sodium Chloride 0.9%) 1,000 mls @ 100 mls/hr IV .Q10H [facility] Stop: 10/27/18 02:45 Last Admin: 10/26/18 14:45 Dose: 100 mls/hr Morphine Sulfate (Morphine) 2 mg IVP Q4 PRN PRN Reason: moderate to severe pain Last Admin: 10/26/18 21:40 Dose: 2 mg - Labs Labs: 10/26/18 05:14 10/26/18 05:14 PT 17.2 SECONDS (9.7-12.2) H 10/26/18 05:14 INR 1.6 10/26/18 05:14 APTT 28 SECONDS (21-34) 10/26/18 05:14
--- NOTE | 2018-10-27 00:17 | CARD ---
APPROVED REPORT Date of service: 10/25/2018 EXAM: Two-dimensional and M-mode echocardiogram with Doppler and color Doppler. INDICATION Pericardial Effusion M-Mode DIMENSIONS TAPSE12.68 cm Mitral Valve E/A ratio0.0 TDI E/Lateral E'0.0E/Medial E'0.0 <Conclusion> Limited ECHO performed to evaluate pericardial effusion Normal LV systolic function Large circumferential pericardial effusion Diastolic collapse of Right ventricle Respiratory variation of Mitral inflow consistent with cardiac Tamponade CT surgery consulted for immidiate pericardial window
[2018-10-27] MEDS: Sodium Chloride 0.9% 1,000 ML IV SCH (00:25)
[2018-10-27] MEDS: Pantoprazole 80 MG in Sodium Chloride 0.9% 100 ML IVPB SCH ×3 (01:20→11:09)
[2018-10-27] MEDS ORDERED: Sodium Chloride 0.9% 500 ML IV ONE (05:45)
[2018-10-27 06:00] LABS: BASO % 0.2 % (0.0-2.0); EOS # 0.1 K/uL (0.0-0.7); HEMOGLOBIN 8.5 g/dL (11.0-16.0); LYMPH # 1.3 K/uL (1.0-4.3); LYMPH % 14.6 % (20.0-40.0); MEAN CELL VOLUME 83.2 fL (81.0-99.0); MEAN CORPUSCULAR HEMOGLOBIN 25.6 pg (27.0-31.0); MEAN CORPUSCULAR HGB CONC 30.8 g/dL (33.0-37.0); MEAN PLATELET VOLUME 7.6 fL (7.2-11.7); MONO % 21.8 % (0.0-10.0); NEUT # 5.7 K/uL (1.8-7.0); NEUT % 62.4 % (50.0-75.0); NRBC % 0.1 % (0.0-2.0); PLATELET COUNT 210 K/uL (130-400); RBC 3.32 Mil/uL (3.80-5.20); RED CELL DISTRIBUTION WIDTH 18.2 % (11.5-14.5); WHITE BLOOD COUNT 9.1 K/uL (4.8-10.8)
[2018-10-27 07:06] LABS: ALB/GLOB RATIO 0.9 (1.0-2.1); ALBUMIN 2.7 g/dL (3.5-5.0); AST/SGOT 30 U/L (14-36); BLOOD UREA NITROGEN 17 mg/dL (7-17); GFR NON-AFRICAN AMERICAN > 60
[2018-10-27 07:07] LABS: ALT/SGPT 24 U/L (9-52)
--- NOTE | 2018-10-27 07:24 | CP.CCUPN ---
<Nitish Ratliff M - Last Filed: 10/27/18 14:30> CCU Subjective - Physician Review Subjective (Free Text): Critical care progress note for Dr. Charles Patient seen and examined at bedside. No acute events overnight. Patient is POD #2 s/p pericardial window for pericardial effusion/ tamponade. Patient reports minor pain around incision site that is well controlled with pain medicine. 10 CC drain in CARMEN drain. No other complaints. Patient denies headaches, vision changes, chest pain, SOB, cough, nausea, vomiting, abdominal pain, fevers, chills. 10/27/18 14:32 CCU Objective - Vital Signs / Intake & Output Vital Signs (Last 4 hours): Vital Signs Temp Pulse Resp BP Pulse Ox 10/27/18 06:30 95 H 23 107/51 L 93 L 10/27/18 06:00 75 13 95/50 L 96 10/27/18 05:46 74 15 87/44 L 95 10/27/18 05:25 78 15 80/47 L 94 L 10/27/18 05:05 75 12 94/43 L 96 10/27/18 04:35 76 12 120/45 L 96 10/27/18 04:05 80 13 113/44 L 97 10/27/18 04:00 99 F 10/27/18 03:35 75 15 100/40 L 97 Intake and Output (Last 8hrs): Intake & Output 10/26/18 10/27/18 10/27/18 22:59 06:59 14:59 Intake Total 910 880 Output Total 490 610 Balance 420 270 Weight 140 lb 12.8 oz Intake: Intake, IV Amount 480 880 Left AC Distal Port 80 80 Left Antecubital 300 800 Left Upper arm 100 Oral 430 Output: Drainage 40 10 Anterior Chest 40 10 Urine 450 600 Urine, Voided 450 600 Stool 0 Other: # Voids Urine, Voided 1 # Bowel Movements 0 - Physical Exam Head: Positive for: Atraumatic, Normocephalic Pupils: Positive for: PERRL Extroacular Muscles: Positive for: EOMI Conjunctiva: Positive for: Normal Mouth: Positive for: Moist Mucous Membranes Neck: Positive for: Normal Range of Motion, JVD Respiratory/Chest: Positive for: Clear to Auscultation, Good Air Exchange. Negative for: Accessory Muscle Use Cardiovascular: Positive for: Murmurs, Normal S1, S2, Other (CARMEN drain, 100 cc overnight) Abdomen: Positive for: Normal Bowel Sounds. Negative for: Tenderness, Distention, Guarding Upper Extremity: Positive for: Normal Inspection. Negative for: Edema Lower Extremity: Positive for: Normal Inspection. Negative for: Edema Neurological: Positive for: GCS=15 Skin: Positive for: Warm, Dry, Rashes, Normal Color Psychiatric: Positive for: Alert, Oriented x 3 - Medications Active Medications: Active Medications Generic Name Dose Route Start Last Admin Trade Name Freq PRN Reason Stop Dose Admin Carvedilol 3.125 mg 10/23/18 19:45 10/23/18 19:44 Coreg PO Not Given BID [facility] Ferric Sodium Gluconate Complex 125 mg 10/27/18 10:00 Ferrlecit IVPB 11/04/18 10:01 DAILY [facility] Pantoprazole Sodium 80 mg/ 100 mls @ 10 mls/hr 10/24/18 11:30 10/27/18 03:00 Sodium Chloride IVPB 10 mls/hr .Q10H [facility] Administration 8 MG/HR Diltiazem HCl 125 mg/ Sodium 125 mls @ 5 mls/hr 10/25/18 14:15 10/26/18 14:15 Chloride IV Not Given .Q24H [facility] Protocol 5 MG/HR Ceftriaxone Sodium 2 gm/ 100 mls @ 100 mls/hr 10/25/18 22:00 10/26/18 09:59 Sodium Chloride IVPB 100 mls/hr DAILY [facility] Administration Protocol Morphine Sulfate 2 mg 10/25/18 21:20 10/27/18 06:00 Morphine IVP 2 mg Q4 PRN Administration moderate to severe pain - Patient Studies Lab Studies: Microbiology Studies 10/25/18 15:00 Blood Culture - Preliminary Blood NO GROWTH AFTER 24 HOURS 10/25/18 14:30 Blood Culture - Preliminary Blood NO GROWTH AFTER 24 HOURS 10/25/18 19:41 Gram Stain - Final Pericardial Fluid Body Fluid Culture - Preliminary NO GROWTH AFTER 24 HOURS Lab Studies 10/27/18 10/27/18 Range/Units 05:52 05:52 WBC 9.1 (4.8-10.8) K/uL RBC 3.32 L (3.80-5.20) Mil/uL Hgb 8.5 L (11.0-16.0) g/dL Hct 27.6 L (34.0-47.0) % MCV 83.2 (81.0-99.0) fL MCH 25.6 L (27.0-31.0) pg MCHC 30.8 L (33.0-37.0) g/dL RDW 18.2 H (11.5-14.5) % Plt Count 210 (130-400) K/uL MPV 7.6 (7.2-11.7) fL Neut % (Auto) 62.4 (50.0-75.0) % Lymph % (Auto) 14.6 L (20.0-40.0) % Garrard % (Auto) 21.8 H (0.0-10.0) % Eos % (Auto) 1.0 (0.0-4.0) % Baso % (Auto) 0.2 (0.0-2.0) % Neut # (Auto) 5.7 (1.8-7.0) K/uL Lymph # (Auto) 1.3 (1.0-4.3) K/uL Garrard # (Auto) 2.0 H (0.0-0.8) K/uL Eos # (Auto) 0.1 (0.0-0.7) K/uL Baso # (Auto) 0.0 (0.0-0.2) K/uL Sodium 130 L (132-148) mmol/L Potassium 3.6 (3.6-5.2) mmol/L Chloride 101 (98-107) mmol/L Carbon Dioxide 25 (22-30) mmol/L Anion Gap 8 L (10-20) BUN 17 (7-17) mg/dL Creatinine 0.7 (0.7-1.2) mg/dL Est GFR ( Amer) > 60 Est GFR (Non-Af Amer) > 60 Random Glucose 97 (65-105) mg/dL Calcium 7.0 L (8.6-10.4) mg/dl Phosphorus 2.0 L (2.5-4.5) mg/dL Magnesium 2.1 (1.6-2.3) mg/dL Total Bilirubin 0.8 (0.2-1.3) mg/dL AST 30 (14-36) U/L ALT 24 (9-52) U/L Alkaline Phosphatase 56 (38-126) U/L Total Protein 5.6 L (6.3-8.3) g/dL Albumin 2.7 L (3.5-5.0) g/dL Globulin 2.9 (2.2-3.9) gm/dL Albumin/Globulin Ratio 0.9 L (1.0-2.1) TSH 3rd Generation 1.18 (0.46-4.68) mIU/L Laboratory Results - last 24 hr 10/27/18 10/27/18 05:52 05:52 WBC 9.1 RBC 3.32 L Hgb 8.5 L Hct 27.6 L MCV 83.2 MCH 25.6 L MCHC 30.8 L RDW 18.2 H Plt Count 210 MPV 7.6 Neut % (Auto) 62.4 Lymph % (Auto) 14.6 L Garrard % (Auto) 21.8 H Eos % (Auto) 1.0 Baso % (Auto) 0.2 Neut # (Auto) 5.7 Lymph # (Auto) 1.3 Garrard # (Auto) 2.0 H Eos # (Auto) 0.1 Baso # (Auto) 0.0 Sodium 130 L Potassium 3.6 Chloride 101 Carbon Dioxide 25 Anion Gap 8 L BUN 17 Creatinine 0.7 Est GFR ( Amer) > 60 Est GFR (Non-Af Amer) > 60 Random Glucose 97 Calcium 7.0 L Phosphorus 2.0 L Magnesium 2.1 Total Bilirubin 0.8 AST 30 ALT 24 Alkaline Phosphatase 56 Total Protein 5.6 L Albumin 2.7 L Globulin 2.9 Albumin/Globulin Ratio 0.9 L TSH 3rd Generation 1.18 Review of Systems - Review of Systems All systems: reviewed and no additional remarkable complaints except - EENT Eyes: As Per HPI Critical Care Progress Note - Prophylaxis GI Prophylaxis GI: PPI - Prophylaxis DVT Prophylaxis DVT: Not Indicated - Nutrition Nutrition: Nutrition Category Date Time Status Liquid Diet [DIET] Diets 10/26/18 Breakfast Active Assessment/Plan - Assessment and Plan (Free Text) Assessment: 62 F w/ PMhx of Afib & pacemaker (on eliquis at home) currently admitted to ICU for monitoring for weakness/ GI bleed, had episode of afib w/ RVR, large pericardial effusion s/p POD # 2 for pericardial window w/ CARMEN drain. EDG deferred by GI, will trend AM labs, possible downgrade to tele tomorrow 1) pericardial tamponade 2) afib RVR 3) anemia Plan: Neuro - A&O x3 Cardio - s/p pericardial window - continue to monitor - off cardizem drip - give digoxin if low BP and afib - biopsy - fluid negative for malignant cells Resp - vitals wnl - continue to monitor GI - protonix 40 mg IVP Q12 - clear liquid diet Heme - H/H stable s/p 2 units PRBCs on admission - WBC normalized - likely 2/2 to pericardial effusion - F/u IZABELLA, lyme, rehumatoid factor, Quantiforon gold - Ceftriaxone 2g daily Renal - GENE resolved - likely 2/2 to pericardial effusion - trend AM labs - freely voiding PPx: - GI: protonix - DVT: VTE contraindicated due to GI bleed <Parag Charles - Last Filed: 10/28/18 08:04> CCU Objective - Vital Signs / Intake & Output Vital Signs (Last 4 hours): Vital Signs Pulse Resp BP Pulse Ox 10/28/18 06:57 138 H 19 111/60 99 10/28/18 05:57 122 H 18 106/62 98 10/28/18 04:57 91 H 15 105/49 L 98 Intake and Output (Last 8hrs): Intake & Output 10/27/18 10/28/18 10/28/18 22:59 06:59 14:59 Intake Total 490 600 Output Total 320 1760 Balance 170 -1160 Weight 143 lb 11.862 oz Intake: Oral 490 600 Output: Drainage 20 10 Anterior Chest 20 10 Urine 300 1750 Urine, Voided 300 1750 - Medications Active Medications: Active Medications Generic Name Dose Route Start Last Admin Trade Name Freq PRN Reason Stop Dose Admin Carvedilol 3.125 mg 10/23/18 19:45 10/23/18 19:44 Coreg PO Not Given BID [facility] Ferric Sodium Gluconate Complex 125 mg 10/27/18 10:00 10/27/18 10:38 Ferrlecit IVPB 11/04/18 10:01 125 mg DAILY [facility] Administration Ceftriaxone Sodium 2 gm/ 100 mls @ 100 mls/hr 10/25/18 22:00 10/27/18 09:42 Sodium Chloride IVPB 100 mls/hr DAILY [facility] Administration Protocol Morphine Sulfate 2 mg 10/25/18 21:20 10/27/18 12:15 Morphine IVP 2 mg Q4 PRN Administration moderate to severe pain Pantoprazole Sodium 40 mg 10/27/18 14:30 10/28/18 02:38 Protonix Inj IVP 40 mg Q12H [facility] Administration Potassium Chloride 40 meq 10/28/18 07:46 K-Dur 20 Meq Er Tab PO 10/28/18 07:47 ONCE ONE - Patient Studies Lab Studies: Microbiology Studies 10/25/18 19:41 Mycobacterial Culture - Preliminary Other: Please Indicate 10/25/18 15:00 Blood Culture - Preliminary Blood NO GROWTH AFTER 48 HOURS 10/25/18 14:30 Blood Culture - Preliminary Blood NO GROWTH AFTER 48 HOURS 10/25/18 19:41 Anaerobic Culture - Final Pericardial Fluid NO ANAEROBES ISOLATED. 10/25/18 19:41 Gram Stain - Final Pericardial Fluid Body Fluid Culture - Preliminary NO GROWTH AFTER 2 DAYS 10/26/18 06:14 Urine Culture - Final Urine Random No Growth (<1,000 CFU/ML) Lab Studies 10/28/18 10/28/18 10/27/18 Range/Units 06:00 06:00 07:20 WBC 7.2 (4.8-10.8) K/uL RBC 3.52 L (3.80-5.20) Mil/uL Hgb 9.0 L (11.0-16.0) g/dL Hct 29.0 L (34.0-47.0) % MCV 82.6 (81.0-99.0) fL MCH 25.7 L (27.0-31.0) pg MCHC 31.2 L (33.0-37.0) g/dL RDW 18.1 H (11.5-14.5) % Plt Count 222 (130-400) K/uL MPV 8.0 (7.2-11.7) fL Neut % (Auto) 55.1 (50.0-75.0) % Lymph % (Auto) 21.9 (20.0-40.0) % Garrard % (Auto) 19.5 H (0.0-10.0) % Eos % (Auto) 2.9 (0.0-4.0) % Baso % (Auto) 0.6 (0.0-2.0) % Neut # (Auto) 4.0 (1.8-7.0) K/uL Lymph # (Auto) 1.6 (1.0-4.3) K/uL Garrard # (Auto) 1.4 H (0.0-0.8) K/uL Eos # (Auto) 0.2 (0.0-0.7) K/uL Baso # (Auto) 0.0 (0.0-0.2) K/uL Neutrophils % (Manual) (50-75) % Lymphocytes % (Manual) (20-40) % Monocytes % (Manual) (0-10) % Eosinophils % (Manual) (0-4) % Platelet Estimate (NORMAL) Hypochromasia (manual) Anisocytosis (manual) Sodium 133 (132-148) mmol/L Potassium 3.2 L (3.6-5.2) mmol/L Chloride 99 (98-107) mmol/L Carbon Dioxide 31 H (22-30) mmol/L Anion Gap 6 L (10-20) BUN 7 (7-17) mg/dL Creatinine 0.5 L (0.7-1.2) mg/dL Est GFR ( Amer) > 60 Est GFR (Non-Af Amer) > 60 Random Glucose 92 (65-105) mg/dL Calcium 7.6 L (8.6-10.4) mg/dl Phosphorus 2.2 L (2.5-4.5) mg/dL Magnesium 2.1 (1.6-2.3) mg/dL Total Bilirubin 0.6 (0.2-1.3) mg/dL AST 35 (14-36) U/L ALT 26 (9-52) U/L Alkaline Phosphatase 63 (38-126) U/L Total Protein 5.5 L (6.3-8.3) g/dL Albumin 2.6 L (3.5-5.0) g/dL Globulin 2.9 (2.2-3.9) gm/dL Albumin/Globulin Ratio 0.9 L (1.0-2.1) IZABELLA Screen (Negative) Lyme IgG 18 kDa Band Lyme IgG 23 kDa Band Lyme IgG 28 kDa Band Lyme IgG 30 kDa Band Lyme IgG 39 kDa Band Lyme IgG 41 kDa Band Lyme IgG 45 kDa Band Lyme IgG 58 kDa Band Lyme IgG 66 kDa Band Lyme IgG 93 kDa Band Lyme IgG W Blot Interp (Negative) Lyme IgM 23 kDa Band Lyme IgM 39 kDa Band Lyme IgM 41 kDa Band Lyme IgM W Blot Interp (Negative) HSV Source Description Serum, vial pour-off HIV 1&2 Antibody Screen (NEGATIVE) 10/27/18 10/27/18 10/25/18 Range/Units 07:20 05:52 20:31 WBC (4.8-10.8) K/uL RBC (3.80-5.20) Mil/uL Hgb (11.0-16.0) g/dL Hct (34.0-47.0) % MCV (81.0-99.0) fL MCH (27.0-31.0) pg MCHC (33.0-37.0) g/dL RDW (11.5-14.5) % Plt Count (130-400) K/uL MPV (7.2-11.7) fL Neut % (Auto) (50.0-75.0) % Lymph % (Auto) (20.0-40.0) % Garrard % (Auto) (0.0-10.0) % Eos % (Auto) (0.0-4.0) % Baso % (Auto) (0.0-2.0) % Neut # (Auto) (1.8-7.0) K/uL Lymph # (Auto) (1.0-4.3) K/uL Garrard # (Auto) (0.0-0.8) K/uL Eos # (Auto) (0.0-0.7) K/uL Baso # (Auto) (0.0-0.2) K/uL Neutrophils % (Manual) 67 (50-75) % Lymphocytes % (Manual) 13 L (20-40) % Monocytes % (Manual) 19 H (0-10) % Eosinophils % (Manual) 1 (0-4) % Platelet Estimate Normal (NORMAL) Hypochromasia (manual) Slight Anisocytosis (manual) Slight Sodium (132-148) mmol/L Potassium (3.6-5.2) mmol/L Chloride (98-107) mmol/L Carbon Dioxide (22-30) mmol/L Anion Gap (10-20) BUN (7-17) mg/dL Creatinine (0.7-1.2) mg/dL Est GFR ( Amer) Est GFR (Non-Af Amer) Random Glucose (65-105) mg/dL Calcium (8.6-10.4) mg/dl Phosphorus (2.5-4.5) mg/dL Magnesium (1.6-2.3) mg/dL Total Bilirubin (0.2-1.3) mg/dL AST (14-36) U/L ALT (9-52) U/L Alkaline Phosphatase (38-126) U/L Total Protein (6.3-8.3) g/dL Albumin (3.5-5.0) g/dL Globulin (2.2-3.9) gm/dL Albumin/Globulin Ratio (1.0-2.1) IZABELLA Screen Negative (Negative) Lyme IgG 18 kDa Band Lyme IgG 23 kDa Band Lyme IgG 28 kDa Band Lyme IgG 30 kDa Band Lyme IgG 39 kDa Band Lyme IgG 41 kDa Band Lyme IgG 45 kDa Band Lyme IgG 58 kDa Band Lyme IgG 66 kDa Band Lyme IgG 93 kDa Band Lyme IgG W Blot Interp (Negative) Lyme IgM 23 kDa Band Lyme IgM 39 kDa Band Lyme IgM 41 kDa Band Lyme IgM W Blot Interp (Negative) HSV Source Description HIV 1&2 Antibody Screen Negative (NEGATIVE) 10/25/18 Range/Units 18:50 WBC (4.8-10.8) K/uL RBC (3.80-5.20) Mil/uL Hgb (11.0-16.0) g/dL Hct (34.0-47.0) % MCV (81.0-99.0) fL MCH (27.0-31.0) pg MCHC (33.0-37.0) g/dL RDW (11.5-14.5) % Plt Count (130-400) K/uL MPV (7.2-11.7) fL Neut % (Auto) (50.0-75.0) % Lymph % (Auto) (20.0-40.0) % Garrard % (Auto) (0.0-10.0) % Eos % (Auto) (0.0-4.0) % Baso % (Auto) (0.0-2.0) % Neut # (Auto) (1.8-7.0) K/uL Lymph # (Auto) (1.0-4.3) K/uL Garrard # (Auto) (0.0-0.8) K/uL Eos # (Auto) (0.0-0.7) K/uL Baso # (Auto) (0.0-0.2) K/uL Neutrophils % (Manual) (50-75) % Lymphocytes % (Manual) (20-40) % Monocytes % (Manual) (0-10) % Eosinophils % (Manual) (0-4) % Platelet Estimate (NORMAL) Hypochromasia (manual) Anisocytosis (manual) Sodium (132-148) mmol/L Potassium (3.6-5.2) mmol/L Chloride (98-107) mmol/L Carbon Dioxide (22-30) mmol/L Anion Gap (10-20) BUN (7-17) mg/dL Creatinine (0.7-1.2) mg/dL Est GFR ( Amer) Est GFR (Non-Af Amer) Random Glucose (65-105) mg/dL Calcium (8.6-10.4) mg/dl Phosphorus (2.5-4.5) mg/dL Magnesium (1.6-2.3) mg/dL Total Bilirubin (0.2-1.3) mg/dL AST (14-36) U/L ALT (9-52) U/L Alkaline Phosphatase (38-126) U/L Total Protein (6.3-8.3) g/dL Albumin (3.5-5.0) g/dL Globulin (2.2-3.9) gm/dL Albumin/Globulin Ratio (1.0-2.1) IZABELLA Screen (Negative) Lyme IgG 18 kDa Band Reactive H Lyme IgG 23 kDa Band Nonreactive Lyme IgG 28 kDa Band Nonreactive Lyme IgG 30 kDa Band Nonreactive Lyme IgG 39 kDa Band Nonreactive Lyme IgG 41 kDa Band Reactive H Lyme IgG 45 kDa Band Nonreactive Lyme IgG 58 kDa Band Nonreactive Lyme IgG 66 kDa Band Nonreactive Lyme IgG 93 kDa Band Nonreactive Lyme IgG W Blot Interp Negative (Negative) Lyme IgM 23 kDa Band Nonreactive Lyme IgM 39 kDa Band Nonreactive Lyme IgM 41 kDa Band Reactive H Lyme IgM W Blot Interp Negative (Negative) HSV Source Description HIV 1&2 Antibody Screen (NEGATIVE) Laboratory Results - last 24 hr 10/25/18 10/25/18 10/27/18 18:50 20:31 05:52 WBC RBC Hgb Hct MCV MCH MCHC RDW Plt Count MPV Neut % (Auto) Lymph % (Auto) Garrard % (Auto) Eos % (Auto) Baso % (Auto) Neut # (Auto) Lymph # (Auto) Garrard # (Auto) Eos # (Auto) Baso # (Auto) Neutrophils % (Manual) 67 Lymphocytes % (Manual) 13 L Monocytes % (Manual) 19 H Eosinophils % (Manual) 1 Platelet Estimate Normal Hypochromasia (manual) Slight Anisocytosis (manual) Slight Sodium Potassium Chloride Carbon Dioxide Anion Gap BUN Creatinine Est GFR ( Amer) Est GFR (Non-Af Amer) Random Glucose Calcium Phosphorus Magnesium Total Bilirubin AST ALT Alkaline Phosphatase Total Protein Albumin Globulin Albumin/Globulin Ratio IZABELLA Screen Negative Lyme IgG 18 kDa Band Reactive H Lyme IgG 23 kDa Band Nonreactive Lyme IgG 28 kDa Band Nonreactive Lyme IgG 30 kDa Band Nonreactive Lyme IgG 39 kDa Band Nonreactive Lyme IgG 41 kDa Band Reactive H Lyme IgG 45 kDa Band Nonreactive Lyme IgG 58 kDa Band Nonreactive Lyme IgG 66 kDa Band Nonreactive Lyme IgG 93 kDa Band Nonreactive Lyme IgG W Blot Interp Negative Lyme IgM 23 kDa Band Nonreactive Lyme IgM 39 kDa Band Nonreactive Lyme IgM 41 kDa Band Reactive H Lyme IgM W Blot Interp Negative HSV Source Description HIV 1&2 Antibody Screen 10/27/18 10/27/18 10/28/18 07:20 07:20 06:00 WBC 7.2 RBC 3.52 L Hgb 9.0 L Hct 29.0 L MCV 82.6 MCH 25.7 L MCHC 31.2 L RDW 18.1 H Plt Count 222 MPV 8.0 Neut % (Auto) 55.1 Lymph % (Auto) 21.9 Garrard % (Auto) 19.5 H Eos % (Auto) 2.9 Baso % (Auto) 0.6 Neut # (Auto) 4.0 Lymph # (Auto) 1.6 Garrard # (Auto) 1.4 H Eos # (Auto) 0.2 Baso # (Auto) 0.0 Neutrophils % (Manual) Lymphocytes % (Manual) Monocytes % (Manual) Eosinophils % (Manual) Platelet Estimate Hypochromasia (manual) Anisocytosis (manual) Sodium Potassium Chloride Carbon Dioxide Anion Gap BUN Creatinine Est GFR ( Amer) Est GFR (Non-Af Amer) Random Glucose Calcium Phosphorus Magnesium Total Bilirubin AST ALT Alkaline Phosphatase Total Protein Albumin Globulin Albumin/Globulin Ratio IZABELLA Screen Lyme IgG 18 kDa Band Lyme IgG 23 kDa Band Lyme IgG 28 kDa Band Lyme IgG 30 kDa Band Lyme IgG 39 kDa Band Lyme IgG 41 kDa Band Lyme IgG 45 kDa Band Lyme IgG 58 kDa Band Lyme IgG 66 kDa Band Lyme IgG 93 kDa Band Lyme IgG W Blot Interp Lyme IgM 23 kDa Band Lyme IgM 39 kDa Band Lyme IgM 41 kDa Band Lyme IgM W Blot Interp HSV Source Description Serum, vial pour-off HIV 1&2 Antibody Screen Negative 10/28/18 06:00 WBC RBC Hgb Hct MCV MCH MCHC RDW Plt Count MPV Neut % (Auto) Lymph % (Auto) Garrard % (Auto) Eos % (Auto) Baso % (Auto) Neut # (Auto) Lymph # (Auto) Garrard # (Auto) Eos # (Auto) Baso # (Auto) Neutrophils % (Manual) Lymphocytes % (Manual) Monocytes % (Manual) Eosinophils % (Manual) Platelet Estimate Hypochromasia (manual) Anisocytosis (manual) Sodium 133 Potassium 3.2 L Chloride 99 Carbon Dioxide 31 H Anion Gap 6 L BUN 7 Creatinine 0.5 L Est GFR ( Amer) > 60 Est GFR (Non-Af Amer) > 60 Random Glucose 92 Calcium 7.6 L Phosphorus 2.2 L Magnesium 2.1 Total Bilirubin 0.6 AST 35 ALT 26 Alkaline Phosphatase 63 Total Protein 5.5 L Albumin 2.6 L Globulin 2.9 Albumin/Globulin Ratio 0.9 L IZABELLA Screen Lyme IgG 18 kDa Band Lyme IgG 23 kDa Band Lyme IgG 28 kDa Band Lyme IgG 30 kDa Band Lyme IgG 39 kDa Band Lyme IgG 41 kDa Band Lyme IgG 45 kDa Band Lyme IgG 58 kDa Band Lyme IgG 66 kDa Band Lyme IgG 93 kDa Band Lyme IgG W Blot Interp Lyme IgM 23 kDa Band Lyme IgM 39 kDa Band Lyme IgM 41 kDa Band Lyme IgM W Blot Interp HSV Source Description HIV 1&2 Antibody Screen Critical Care Progress Note - Nutrition Nutrition: Nutrition Category Date Time Status Liquid Diet [DIET] Diets 10/26/18 Breakfast Active Attending/Attestation - Attestation I have personally seen and examined this patient.: Yes I have fully participated in the care of the patient.: Yes I have reviewed all pertinent clinical information: Yes Notes (Text): Today: Saturday, October 27, 2018 The Patient was seen and examined at the bedside, Medical records reviewed, and management issues were discussed and formulated with the house staff. I have reviewed all the relevant clinical, laboratory, hemodynamic, radiographic data and medications Events reviewed Pain issues, skin care, head of the bed elevation, glycemic control were addressed. Agree with above resident's assessment and treatment plans of care as transcribed in Dr. Ratliff's note.
[2018-10-27 08:31] LABS: EOSINOPHIL 1 % (0-4); LYMPHOCYTE 13 % (20-40); MONOCYTE 19 % (0-10); NEUTROPHIL 67 % (50-75); PLATELET ESTIMATE NORMAL (NORMAL); TOTAL CELLS COUNTED 100
[2018-10-27 08:32] LABS: ANISOCYTOSIS SLIGHT
[2018-10-27 08:33] LABS: HYPOCHROMIC SLIGHT
[2018-10-27] MEDS: cefTRIAXone 2 GM in Sodium Chloride 0.9% 100 ML IVPB SCH (09:42)
[2018-10-27] MEDS: Ferric Sodium Gluconat Complex 62.5 mg/5 ml Vial IVPB SCH (10:38)
--- NOTE | 2018-10-27 11:15 | CP.PCM.PN ---
Subjective - Date & Time of Evaluation Date of Evaluation: 10/27/18 Time of Evaluation: 11:12 - Subjective Subjective: SURGERY NOTE FOR DR. OCONNOR 62F seen and examined at bedside. Patient denies chest pain, denies shortness of breath. Blood pressure improved overall. Objective - Vital Signs/Intake and Output Vital Signs (last 24 hours): Temp Pulse Resp BP Pulse Ox 98.6 F 94 H 22 85/46 L 96 10/27/18 08:00 10/27/18 09:31 10/27/18 09:31 10/27/18 09:31 10/27/18 09:31 Intake and Output: 10/27/18 10/27/18 06:59 18:59 Intake Total 1370 30 Output Total 900 Balance 470 30 - Medications Medications: Current Medications Carvedilol (Coreg) 3.125 mg PO BID [facility] Last Admin: 10/23/18 19:44 Dose: Not Given Ferric Sodium Gluconate Complex (Ferrlecit) 125 mg IVPB DAILY [facility] Stop: 11/04/18 10:01 Last Admin: 10/27/18 10:38 Dose: 125 mg Pantoprazole Sodium 80 mg/ (Sodium Chloride) 100 mls @ 10 mls/hr IVPB .Q10H [facility] Last Admin: 10/27/18 11:09 Dose: 10 mls/hr Diltiazem HCl 125 mg/ Sodium (Chloride) 125 mls @ 5 mls/hr IV .Q24H [facility]; Protocol Last Admin: 10/26/18 14:15 Dose: Not Given Ceftriaxone Sodium 2 gm/ (Sodium Chloride) 100 mls @ 100 mls/hr IVPB DAILY [facility]; Protocol Last Admin: 10/27/18 09:42 Dose: 100 mls/hr Morphine Sulfate (Morphine) 2 mg IVP Q4 PRN PRN Reason: moderate to severe pain Last Admin: 10/27/18 06:00 Dose: 2 mg - Labs Labs: 10/27/18 05:52 10/27/18 05:52 PT 17.2 SECONDS (9.7-12.2) H 10/26/18 05:14 INR 1.6 10/26/18 05:14 APTT 28 SECONDS (21-34) 10/26/18 05:14 - Constitutional Appears: Non-toxic, No Acute Distress - Respiratory Exam Respiratory Exam: Clear to Ausculation Bilateral, NORMAL BREATHING PATTERN - Cardiovascular Exam Cardiovascular Exam: REGULAR RHYTHM, +S1, +S2 Additional comments: Pericardial drain place - 50cc/24hrs - GI/Abdominal Exam GI & Abdominal Exam: Soft. absent: Distended, Firm, Guarding, Rigid, Tenderness, Rebound - Neurological Exam Neurological Exam: Alert, Awake Assessment and Plan - Assessment and Plan (Free Text) Assessment: 62F s/p pericardial window POD#2 Plan: - Monitor drain output - await cytology/microbiology -ICU management Further recs per Dr. Monse [place], PGY3
--- NOTE | 2018-10-27 11:48 | CP.PCM.PN ---
Subjective - Date & Time of Evaluation Date of Evaluation: 10/27/18 Time of Evaluation: 11:45 - Subjective Subjective: In ICU S/P emergency pericardial window for cardiac tamponade due to large bloody pericardial effusion C/O dyspnea earlier today, currently noted incisional pain. No BMs. On PPI drip and clear liquid diet. Feels weak Hgb slowly dwindling down Objective - Vital Signs/Intake and Output Vital Signs (last 24 hours): Temp Pulse Resp BP Pulse Ox 98.6 F 89 22 111/57 L 97 10/27/18 08:00 10/27/18 11:00 10/27/18 11:00 10/27/18 11:00 10/27/18 11:00 Intake and Output: 10/27/18 10/27/18 06:59 18:59 Intake Total 1370 50 Output Total 900 Balance 470 50 - Medications Medications: Current Medications Carvedilol (Coreg) 3.125 mg PO BID [facility] Last Admin: 10/23/18 19:44 Dose: Not Given Ferric Sodium Gluconate Complex (Ferrlecit) 125 mg IVPB DAILY [facility] Stop: 11/04/18 10:01 Last Admin: 10/27/18 10:38 Dose: 125 mg Pantoprazole Sodium 80 mg/ (Sodium Chloride) 100 mls @ 10 mls/hr IVPB .Q10H [facility] Last Admin: 10/27/18 11:09 Dose: 10 mls/hr Diltiazem HCl 125 mg/ Sodium (Chloride) 125 mls @ 5 mls/hr IV .Q24H [facility]; Protocol Last Admin: 10/26/18 14:15 Dose: Not Given Ceftriaxone Sodium 2 gm/ (Sodium Chloride) 100 mls @ 100 mls/hr IVPB DAILY [facility]; Protocol Last Admin: 10/27/18 09:42 Dose: 100 mls/hr Morphine Sulfate (Morphine) 2 mg IVP Q4 PRN PRN Reason: moderate to severe pain Last Admin: 10/27/18 06:00 Dose: 2 mg - Labs Labs: 10/27/18 05:52 10/27/18 05:52 PT 17.2 SECONDS (9.7-12.2) H 10/26/18 05:14 INR 1.6 10/26/18 05:14 APTT 28 SECONDS (21-34) 10/26/18 05:14 - Constitutional Appears: No Acute Distress - Head Exam Head Exam: NORMOCEPHALIC - Eye Exam Eye Exam: absent: Scleral icterus - Respiratory Exam Respiratory Exam: NORMAL BREATHING PATTERN - Cardiovascular Exam Cardiovascular Exam: REGULAR RHYTHM - GI/Abdominal Exam GI & Abdominal Exam: Soft. absent: Tenderness Assessment and Plan (1) Anemia Assessment & Plan: stable. Bloody pericardial fluid- perhaps source of anemia. No overt signs of GI bleeding- may stop PPI drip, and advance diet. EGD deferred Status: Acute (2) Rapid atrial fibrillation Status: Acute
[2018-10-27 12:09] LABS: 23 KD (IGG) BAND Nonreactive
--- NOTE | 2018-10-27 18:22 | CP.PCM.PN ---
Subjective - Date & Time of Evaluation Date of Evaluation: 10/27/18 Time of Evaluation: 18:22 - Subjective Subjective: Patient improving, no CP, no SOB, no N/V. Objective - Vital Signs/Intake and Output Vital Signs (last 24 hours): Temp Pulse Resp BP Pulse Ox 98 F 90 20 103/52 L 93 L 10/27/18 16:00 10/27/18 18:00 10/27/18 18:00 10/27/18 18:00 10/27/18 18:00 Intake and Output: 10/27/18 10/27/18 11:59 23:59 Intake Total 940 340 Output Total 610 600 Balance 330 -260 - Medications Medications: Current Medications Carvedilol (Coreg) 3.125 mg PO BID [facility] Last Admin: 10/23/18 19:44 Dose: Not Given Ferric Sodium Gluconate Complex (Ferrlecit) 125 mg IVPB DAILY [facility] Stop: 11/04/18 10:01 Last Admin: 10/27/18 10:38 Dose: 125 mg Ceftriaxone Sodium 2 gm/ (Sodium Chloride) 100 mls @ 100 mls/hr IVPB DAILY [facility]; Protocol Last Admin: 10/27/18 09:42 Dose: 100 mls/hr Morphine Sulfate (Morphine) 2 mg IVP Q4 PRN PRN Reason: moderate to severe pain Last Admin: 10/27/18 12:15 Dose: 2 mg Pantoprazole Sodium (Protonix Inj) 40 mg IVP Q12H [facility] Last Admin: 10/27/18 15:05 Dose: 40 mg - Labs Labs: 10/27/18 05:52 10/27/18 05:52 PT 17.2 SECONDS (9.7-12.2) H 10/26/18 05:14 INR 1.6 10/26/18 05:14 APTT 28 SECONDS (21-34) 10/26/18 05:14 - Constitutional Appears: Non-toxic - Head Exam Head Exam: ATRAUMATIC, NORMAL INSPECTION, NORMOCEPHALIC - Eye Exam Eye Exam: Normal appearance - Neck Exam Neck Exam: Full ROM - Respiratory Exam Respiratory Exam: Clear to Ausculation Bilateral - Cardiovascular Exam Cardiovascular Exam: Irregular Rhythm, +S1, +S2 - GI/Abdominal Exam GI & Abdominal Exam: Soft - Extremities Exam Extremities Exam: Normal Inspection - Neurological Exam Neurological Exam: Alert, Awake, CN II-XII Intact, Oriented x3 - Psychiatric Exam Psychiatric exam: Normal Affect - Skin Skin Exam: Pallor Assessment and Plan (1) Rapid atrial fibrillation Status: Acute (2) Symptomatic anemia Status: Acute (3) Atrial fibrillation Status: Acute (4) Hypertensive cardiovascular disease Status: Acute (5) Wide-complex tachycardia Status: Acute (6) Hypertension Status: Chronic (7) Pericardial effusion Status: Acute (8) Cardiac tamponade Status: Acute - Assessment and Plan (Free Text) Plan: Continue present rx
--- NOTE | 2018-10-27 18:58 | CP.PCM.PN ---
Subjective - Date & Time of Evaluation Date of Evaluation: 10/27/18 Time of Evaluation: 18:55 - Subjective Subjective: INFECTIOUS DISEASE PROGRESS NOTES MARK ANTHONY DOLAN MD, FACP ICU 12 10/27/2018 CHART REVIEWED PT EXAMINED CASE DISCUSSED WITH STAFF, PT AND DAUGHTER DAVID In ICU S/P emergency pericardial window for cardiac tamponade due to large bloody pericardial effusion C/O dyspnea earlier today, currently noted incisional pain. No BMs. On PPI drip and clear liquid diet. Feels weak Hgb slowly dwindling down EXTENSIVE LABS STILL PENDING RESPONDING TO MEDICAL/SURGICAL MANAGEMENT OBSERVE, NOTIFY ME OF ANY URGENT FINDINGS. Objective - Vital Signs/Intake and Output Vital Signs (last 24 hours): Temp Pulse Resp BP Pulse Ox 98.6 F 89 22 111/57 L 97 10/27/18 08:00 10/27/18 11:00 10/27/18 11:00 10/27/18 11:00 10/27/18 11:00 Intake and Output: 10/27/18 10/27/18 06:59 18:59 Intake Total 1370 50 Output Total 900 Balance 470 50 - Medications Medications: Current Medications Carvedilol (Coreg) 3.125 mg PO BID [facility] Last Admin: 10/23/18 19:44 Dose: Not Given Ferric Sodium Gluconate Complex (Ferrlecit) 125 mg IVPB DAILY [facility] Stop: 11/04/18 10:01 Last Admin: 10/27/18 10:38 Dose: 125 mg Pantoprazole Sodium 80 mg/ (Sodium Chloride) 100 mls @ 10 mls/hr IVPB .Q10H [facility] Last Admin: 10/27/18 11:09 Dose: 10 mls/hr Diltiazem HCl 125 mg/ Sodium (Chloride) 125 mls @ 5 mls/hr IV .Q24H [facility]; Protocol Last Admin: 10/26/18 14:15 Dose: Not Given Ceftriaxone Sodium 2 gm/ (Sodium Chloride) 100 mls @ 100 mls/hr IVPB DAILY [facility]; Protocol Last Admin: 10/27/18 09:42 Dose: 100 mls/hr Morphine Sulfate (Morphine) 2 mg IVP Q4 PRN PRN Reason: moderate to severe pain Last Admin: 10/27/18 06:00 Dose: 2 mg - Labs Labs: 10/27/18 05:52 10/27/18 05:52 PT 17.2 SECONDS (9.7-12.2) H 10/26/18 05:14 INR 1.6 10/26/18 05:14 APTT 28 SECONDS (21-34) 10/26/18 05:14 - Constitutional Appears: No Acute Distress - Head Exam Head Exam: NORMOCEPHALIC - Eye Exam Eye Exam: absent: Scleral icterus - Respiratory Exam Respiratory Exam: NORMAL BREATHING PATTERN - Cardiovascular Exam Cardiovascular Exam: REGULAR RHYTHM - GI/Abdominal Exam GI & Abdominal Exam: Soft. absent: Tenderness Assessment and Plan (1) Anemia Assessment & Plan: stable. Bloody pericardial fluid- perhaps source of anemia. No overt signs of GI bleeding- may stop PPI drip, and advance diet. EGD deferred Status: Acute (2) Rapid atrial fibrillation Status: Acute Objective - Vital Signs/Intake and Output Vital Signs (last 24 hours): Temp Pulse Resp BP Pulse Ox 98 F 90 20 103/52 L 93 L 10/27/18 16:00 10/27/18 18:00 10/27/18 18:00 10/27/18 18:00 10/27/18 18:00 Intake and Output: 10/27/18 10/27/18 06:59 18:59 Intake Total 1370 510 Output Total 900 600 Balance 470 -90 - Medications Medications: Current Medications Carvedilol (Coreg) 3.125 mg PO BID [facility] Last Admin: 10/23/18 19:44 Dose: Not Given Ferric Sodium Gluconate Complex (Ferrlecit) 125 mg IVPB DAILY [facility] Stop: 11/04/18 10:01 Last Admin: 10/27/18 10:38 Dose: 125 mg Ceftriaxone Sodium 2 gm/ (Sodium Chloride) 100 mls @ 100 mls/hr IVPB DAILY [facility]; Protocol Last Admin: 10/27/18 09:42 Dose: 100 mls/hr Morphine Sulfate (Morphine) 2 mg IVP Q4 PRN PRN Reason: moderate to severe pain Last Admin: 10/27/18 12:15 Dose: 2 mg Pantoprazole Sodium (Protonix Inj) 40 mg IVP Q12H [facility] Last Admin: 10/27/18 15:05 Dose: 40 mg - Labs Labs: 10/27/18 05:52 10/27/18 05:52 PT 17.2 SECONDS (9.7-12.2) H 10/26/18 05:14 INR 1.6 10/26/18 05:14 APTT 28 SECONDS (21-34) 10/26/18 05:14
--- NOTE | 2018-10-27 22:02 | CP.PCM.PN ---
Subjective - Date & Time of Evaluation Date of Evaluation: 10/27/18 Time of Evaluation: 16:45 - Subjective Subjective: Patient seen and examined at bedside. No acute events overnight. Patient is POD #2 s/p pericardial window for pericardial effusion/ tamponade. Patient reports minor pain around incision site that is well controlled with pain medicine. 10 CC drain in CARMEN drain. No other complaints. Patient denies headaches, vision changes, chest pain, SOB, cough, nausea, vomiting, abdominal pain, fevers, chills. CCU Objective - Vital Signs / Intake & Output Vital Signs (Last 4 hours): Vital Signs Temp Pulse Resp BP Pulse Ox 10/27/18 06:30 95 H 23 107/51 L 93 L 10/27/18 06:00 75 13 95/50 L 96 10/27/18 05:46 74 15 87/44 L 95 10/27/18 05:25 78 15 80/47 L 94 L 10/27/18 05:05 75 12 94/43 L 96 10/27/18 04:35 76 12 120/45 L 96 10/27/18 04:05 80 13 113/44 L 97 10/27/18 04:00 99 F 10/27/18 03:35 75 15 100/40 L 97 Intake and Output (Last 8hrs): Intake & Output 10/26/18 10/27/18 10/27/18 22:59 06:59 14:59 Intake Total 910 880 Output Total 490 610 Balance 420 270 Weight 140 lb 12.8 oz Intake: Intake, IV Amount 480 880 Left AC Distal Port 80 80 Left Antecubital 300 800 Left Upper arm 100 Oral 430 Output: Drainage 40 10 Anterior Chest 40 10 Urine 450 600 Urine, Voided 450 600 Stool 0 Other: # Voids Urine, Voided 1 # Bowel Movements 0 - Physical Exam Head: Positive for: Atraumatic, Normocephalic Pupils: Positive for: PERRL Extroacular Muscles: Positive for: EOMI Conjunctiva: Positive for: Normal Mouth: Positive for: Moist Mucous Membranes Neck: Positive for: Normal Range of Motion, JVD Respiratory/Chest: Positive for: Clear to Auscultation, Good Air Exchange. Negative for: Accessory Muscle Use Cardiovascular: Positive for: Murmurs, Normal S1, S2, Other (CARMEN drain, 100 cc overnight) Abdomen: Positive for: Normal Bowel Sounds. Negative for: Tenderness, Distention, Guarding Upper Extremity: Positive for: Normal Inspection. Negative for: Edema Lower Extremity: Positive for: Normal Inspection. Negative for: Edema Neurological: Positive for: GCS=15 Skin: Positive for: Warm, Dry, Rashes, Normal Color Psychiatric: Positive for: Alert, Oriented x 3 Review of Systems - Review of Systems All systems: reviewed and no additional remarkable complaints except - EENT Eyes: As Per HPI Critical Care Progress Note - Prophylaxis GI Prophylaxis GI: PPI - Prophylaxis DVT Prophylaxis DVT: Not Indicated - Nutrition Nutrition: Nutrition Category Date Time Status Liquid Diet [DIET] Diets 10/26/18 Breakfast Active Assessment/Plan - Assessment and Plan (Free Text) Assessment: 62 F w/ PMhx of Afib & pacemaker (on eliquis at home) currently admitted to ICU for monitoring for weakness/ GI bleed, had episode of afib w/ RVR, large pericardial effusion s/p POD # 2 for pericardial window w/ CARMEN drain. EDG deferred by GI 1) pericardial tamponade 2) afib RVR 3) anemia Plan: Neuro - A&O x3 Cardio - s/p pericardial window - continue to monitor - off cardizem drip - give digoxin if low BP and afib - biopsy - fluid negative for malignant cells Resp - vitals wnl - continue to monitor GI - protonix 40 mg IVP Q12 - clear liquid diet Heme - H/H stable s/p 2 units PRBCs on admission - WBC normalized - likely 2/2 to pericardial effusion - F/u IZABELLA, lyme, rehumatoid factor, Quantiforon gold - Ceftriaxone 2g daily Renal - GENE resolved - likely 2/2 to pericardial effusion - trend AM labs - freely voiding PPx: - GI: protonix - DVT: VTE contraindicated due to GI bleed Critical Care time 40 minutes S/P Pericardial window POD # 2 Total amount of hemorrhagic fluid drained around 700cc will not explain 6gm hgb intial drop and additional 1.5 gm drop during the hospitalization High likely associated GIB (Guiac positive stools) Strongly recommend EGD and Colonoscopy prior to hospital discharge Objective - Vital Signs/Intake and Output Vital Signs (last 24 hours): Temp Pulse Resp BP Pulse Ox 97.8 F 94 H 18 111/51 L 94 L 10/27/18 20:00 10/27/18 21:01 10/27/18 21:01 10/27/18 21:01 10/27/18 21:01 Intake and Output: 10/27/18 10/28/18 18:59 06:59 Intake Total 510 150 Output Total 600 20 Balance -90 130 - Medications Medications: Current Medications Carvedilol (Coreg) 3.125 mg PO BID [facility] Last Admin: 10/23/18 19:44 Dose: Not Given Ferric Sodium Gluconate Complex (Ferrlecit) 125 mg IVPB DAILY [facility] Stop: 11/04/18 10:01 Last Admin: 10/27/18 10:38 Dose: 125 mg Ceftriaxone Sodium 2 gm/ (Sodium Chloride) 100 mls @ 100 mls/hr IVPB DAILY [facility]; Protocol Last Admin: 10/27/18 09:42 Dose: 100 mls/hr Morphine Sulfate (Morphine) 2 mg IVP Q4 PRN PRN Reason: moderate to severe pain Last Admin: 10/27/18 12:15 Dose: 2 mg Pantoprazole Sodium (Protonix Inj) 40 mg IVP Q12H [facility] Last Admin: 10/27/18 15:05 Dose: 40 mg - Labs Labs: 10/27/18 05:52 10/27/18 05:52 PT 17.2 SECONDS (9.7-12.2) H 10/26/18 05:14 INR 1.6 10/26/18 05:14 APTT 28 SECONDS (21-34) 10/26/18 05:14
--- NOTE | 2018-10-27 22:54 | CP.PCM.PN ---
Subjective - Date & Time of Evaluation Date of Evaluation: 10/27/18 Time of Evaluation: 20:00 - Subjective Subjective: Has some incision pain, weak Objective - Vital Signs/Intake and Output Vital Signs (last 24 hours): Temp Pulse Resp BP Pulse Ox 97.8 F 94 H 18 111/51 L 94 L 10/27/18 20:00 10/27/18 21:01 10/27/18 21:01 10/27/18 21:01 10/27/18 21:01 Intake and Output: 10/27/18 10/28/18 18:59 06:59 Intake Total 510 150 Output Total 600 20 Balance -90 130 - Medications Medications: Current Medications Carvedilol (Coreg) 3.125 mg PO BID [facility] Last Admin: 10/23/18 19:44 Dose: Not Given Ferric Sodium Gluconate Complex (Ferrlecit) 125 mg IVPB DAILY [facility] Stop: 11/04/18 10:01 Last Admin: 10/27/18 10:38 Dose: 125 mg Ceftriaxone Sodium 2 gm/ (Sodium Chloride) 100 mls @ 100 mls/hr IVPB DAILY [facility]; Protocol Last Admin: 10/27/18 09:42 Dose: 100 mls/hr Morphine Sulfate (Morphine) 2 mg IVP Q4 PRN PRN Reason: moderate to severe pain Last Admin: 10/27/18 12:15 Dose: 2 mg Pantoprazole Sodium (Protonix Inj) 40 mg IVP Q12H [facility] Last Admin: 10/27/18 15:05 Dose: 40 mg - Labs Labs: 10/27/18 05:52 10/27/18 05:52 PT 17.2 SECONDS (9.7-12.2) H 10/26/18 05:14 INR 1.6 10/26/18 05:14 APTT 28 SECONDS (21-34) 10/26/18 05:14 - Head Exam Head Exam: ATRAUMATIC - Eye Exam Eye Exam: Normal appearance - ENT Exam ENT Exam: Mucous Membranes Dry - Respiratory Exam Respiratory Exam: NORMAL BREATHING PATTERN - Cardiovascular Exam Cardiovascular Exam: +S1, +S2 - GI/Abdominal Exam GI & Abdominal Exam: Normal Bowel Sounds Assessment and Plan (1) Platelet dysfunction Assessment & Plan: suspect related to antiplatelet and uremia does not currently require platelet transfusion or DDAVP will trend Status: Acute (2) Coagulopathy Assessment & Plan: improved likely prior anticoagulation and nutritional component Status: Acute (3) Anemia Assessment & Plan: noted slow decline in H/H iron deficiency anemia likely related to chronic GI blood loss; on IV iron GI following; further w/u when more stable anticoagulation/antiplatelet held transfusion support PRN Status: Acute (4) Pericardial effusion Assessment & Plan: follow up fluid analysis Status: Acute
[2018-10-28 06:09] LABS: BASO % 0.6 % (0.0-2.0); EOS # 0.2 K/uL (0.0-0.7); EOS % 2.9 % (0.0-4.0); LYMPH # 1.6 K/uL (1.0-4.3); LYMPH % 21.9 % (20.0-40.0); MEAN CELL VOLUME 82.6 fL (81.0-99.0); MEAN CORPUSCULAR HEMOGLOBIN 25.7 pg (27.0-31.0); MEAN CORPUSCULAR HGB CONC 31.2 g/dL (33.0-37.0); MONO # 1.4 K/uL (0.0-0.8); MONO % 19.5 % (0.0-10.0); NEUT % 55.1 % (50.0-75.0); NRBC % 0.1 % (0.0-2.0); RBC 3.52 Mil/uL (3.80-5.20); RED CELL DISTRIBUTION WIDTH 18.1 % (11.5-14.5); WHITE BLOOD COUNT 7.2 K/uL (4.8-10.8)
[2018-10-28 06:48] LABS: BLOOD UREA NITROGEN 7 mg/dL (7-17); CALCIUM 7.6 mg/dl (8.6-10.4); GFR NON-AFRICAN AMERICAN > 60
[2018-10-28 06:49] LABS: ALB/GLOB RATIO 0.9 (1.0-2.1); ALBUMIN 2.6 g/dL (3.5-5.0); ALT/SGPT 26 U/L (9-52); AST/SGOT 35 U/L (14-36)
--- NOTE | 2018-10-28 07:05 | CP.CCUPN ---
<Nitish Ratliff M - Last Filed: 10/28/18 14:42> CCU Subjective - Physician Review Subjective (Free Text): Critical care progress note for Dr. Charles Patient seen and examined at bedside. Patient is POD #3 s/p pericardial window for pericardial effusion/ tamponade. This morning patient was tachycardiac at 130s. Patient reports minor pain around incision site that is well controlled with pain medicine. 10 CC drain in CARMEN drain. Patient denies headaches, vision changes, chest pain, SOB, cough, nausea, vomiting, abdominal pain, fevers, chills. 10/28/18 14:53 CCU Objective - Vital Signs / Intake & Output Vital Signs (Last 4 hours): Vital Signs Temp Pulse Resp BP Pulse Ox 10/28/18 05:57 122 H 18 106/62 98 10/28/18 04:57 91 H 15 105/49 L 98 10/28/18 04:00 98.3 F 10/28/18 03:56 77 11 L 114/49 L 99 Intake and Output (Last 8hrs): Intake & Output 10/27/18 10/28/18 10/28/18 22:59 06:59 14:59 Intake Total 490 600 Output Total 320 1760 Balance 170 -1160 Intake: Oral 490 600 Output: Drainage 20 10 Anterior Chest 20 10 Urine 300 1750 Urine, Voided 300 1750 - Physical Exam Head: Positive for: Atraumatic, Normocephalic Pupils: Positive for: PERRL Extroacular Muscles: Positive for: EOMI Conjunctiva: Positive for: Normal Mouth: Positive for: Moist Mucous Membranes Neck: Positive for: Normal Range of Motion, JVD Respiratory/Chest: Positive for: Clear to Auscultation, Good Air Exchange. Negative for: Accessory Muscle Use Cardiovascular: Positive for: Murmurs, Normal S1, S2, Other (CARMEN drain, 100 cc overnight) Abdomen: Positive for: Normal Bowel Sounds. Negative for: Tenderness, Distention, Guarding Upper Extremity: Positive for: Normal Inspection. Negative for: Edema Lower Extremity: Positive for: Normal Inspection. Negative for: Edema Neurological: Positive for: GCS=15 Skin: Positive for: Warm, Dry, Rashes, Normal Color Psychiatric: Positive for: Alert, Oriented x 3 - Medications Active Medications: Active Medications Generic Name Dose Route Start Last Admin Trade Name Freq PRN Reason Stop Dose Admin Carvedilol 3.125 mg 10/23/18 19:45 10/23/18 19:44 Coreg PO Not Given BID LAYTON Ferric Sodium Gluconate Complex 125 mg 10/27/18 10:00 10/27/18 10:38 Ferrlecit IVPB 11/04/18 10:01 125 mg DAILY LAYTON Administration Ceftriaxone Sodium 2 gm/ 100 mls @ 100 mls/hr 10/25/18 22:00 10/27/18 09:42 Sodium Chloride IVPB 100 mls/hr DAILY L[facility]TON Administration Protocol Morphine Sulfate 2 mg 10/25/18 21:20 10/27/18 12:15 Morphine IVP 2 mg Q4 PRN Administration moderate to severe pain Pantoprazole Sodium 40 mg 10/27/18 14:30 10/28/18 02:38 Protonix Inj IVP 40 mg Q12H LAYTON Administration - Patient Studies Lab Studies: Microbiology Studies 10/25/18 19:41 Mycobacterial Culture - Preliminary Other: Please Indicate 10/25/18 15:00 Blood Culture - Preliminary Blood NO GROWTH AFTER 48 HOURS 10/25/18 14:30 Blood Culture - Preliminary Blood NO GROWTH AFTER 48 HOURS 10/25/18 19:41 Anaerobic Culture - Final Pericardial Fluid NO ANAEROBES ISOLATED. 10/25/18 19:41 Gram Stain - Final Pericardial Fluid Body Fluid Culture - Preliminary NO GROWTH AFTER 2 DAYS 10/26/18 06:14 Urine Culture - Final Urine Random No Growth (<1,000 CFU/ML) Lab Studies 10/28/18 10/28/18 10/27/18 Range/Units 06:00 06:00 07:20 WBC 7.2 (4.8-10.8) K/uL RBC 3.52 L (3.80-5.20) Mil/uL Hgb 9.0 L (11.0-16.0) g/dL Hct 29.0 L (34.0-47.0) % MCV 82.6 (81.0-99.0) fL MCH 25.7 L (27.0-31.0) pg MCHC 31.2 L (33.0-37.0) g/dL RDW 18.1 H (11.5-14.5) % Plt Count 222 (130-400) K/uL MPV 8.0 (7.2-11.7) fL Neut % (Auto) 55.1 (50.0-75.0) % Lymph % (Auto) 21.9 (20.0-40.0) % Pierce % (Auto) 19.5 H (0.0-10.0) % Eos % (Auto) 2.9 (0.0-4.0) % Baso % (Auto) 0.6 (0.0-2.0) % Neut # (Auto) 4.0 (1.8-7.0) K/uL Lymph # (Auto) 1.6 (1.0-4.3) K/uL Pierce # (Auto) 1.4 H (0.0-0.8) K/uL Eos # (Auto) 0.2 (0.0-0.7) K/uL Baso # (Auto) 0.0 (0.0-0.2) K/uL Neutrophils % (Manual) (50-75) % Lymphocytes % (Manual) (20-40) % Monocytes % (Manual) (0-10) % Eosinophils % (Manual) (0-4) % Platelet Estimate (NORMAL) Hypochromasia (manual) Anisocytosis (manual) Sodium 133 (132-148) mmol/L Potassium 3.2 L (3.6-5.2) mmol/L Chloride 99 (98-107) mmol/L Carbon Dioxide 31 H (22-30) mmol/L Anion Gap 6 L (10-20) BUN 7 (7-17) mg/dL Creatinine 0.5 L (0.7-1.2) mg/dL Est GFR ( Amer) > 60 Est GFR (Non-Af Amer) > 60 Random Glucose 92 (65-105) mg/dL Calcium 7.6 L (8.6-10.4) mg/dl Phosphorus 2.2 L (2.5-4.5) mg/dL Magnesium 2.1 (1.6-2.3) mg/dL Total Bilirubin 0.6 (0.2-1.3) mg/dL AST 35 (14-36) U/L ALT 26 (9-52) U/L Alkaline Phosphatase 63 (38-126) U/L Total Protein 5.5 L (6.3-8.3) g/dL Albumin 2.6 L (3.5-5.0) g/dL Globulin 2.9 (2.2-3.9) gm/dL Albumin/Globulin Ratio 0.9 L (1.0-2.1) TSH 3rd Generation (0.46-4.68) mIU/L IZABELLA Screen (Negative) Lyme IgG 18 kDa Band Lyme IgG 23 kDa Band Lyme IgG 28 kDa Band Lyme IgG 30 kDa Band Lyme IgG 39 kDa Band Lyme IgG 41 kDa Band Lyme IgG 45 kDa Band Lyme IgG 58 kDa Band Lyme IgG 66 kDa Band Lyme IgG 93 kDa Band Lyme IgG W Blot Interp (Negative) Lyme IgM 23 kDa Band Lyme IgM 39 kDa Band Lyme IgM 41 kDa Band Lyme IgM W Blot Interp (Negative) HSV Source Description Serum, vial pour-off HIV 1&2 Antibody Screen (NEGATIVE) 10/27/18 10/27/18 10/27/18 Range/Units 07:20 05:52 05:52 WBC (4.8-10.8) K/uL RBC (3.80-5.20) Mil/uL Hgb (11.0-16.0) g/dL Hct (34.0-47.0) % MCV (81.0-99.0) fL MCH (27.0-31.0) pg MCHC (33.0-37.0) g/dL RDW (11.5-14.5) % Plt Count (130-400) K/uL MPV (7.2-11.7) fL Neut % (Auto) (50.0-75.0) % Lymph % (Auto) (20.0-40.0) % Pierce % (Auto) (0.0-10.0) % Eos % (Auto) (0.0-4.0) % Baso % (Auto) (0.0-2.0) % Neut # (Auto) (1.8-7.0) K/uL Lymph # (Auto) (1.0-4.3) K/uL Pierce # (Auto) (0.0-0.8) K/uL Eos # (Auto) (0.0-0.7) K/uL Baso # (Auto) (0.0-0.2) K/uL Neutrophils % (Manual) 67 (50-75) % Lymphocytes % (Manual) 13 L (20-40) % Monocytes % (Manual) 19 H (0-10) % Eosinophils % (Manual) 1 (0-4) % Platelet Estimate Normal (NORMAL) Hypochromasia (manual) Slight Anisocytosis (manual) Slight Sodium 130 L (132-148) mmol/L Potassium 3.6 (3.6-5.2) mmol/L Chloride 101 (98-107) mmol/L Carbon Dioxide 25 (22-30) mmol/L Anion Gap 8 L (10-20) BUN 17 (7-17) mg/dL Creatinine 0.7 (0.7-1.2) mg/dL Est GFR ( Amer) > 60 Est GFR (Non-Af Amer) > 60 Random Glucose 97 (65-105) mg/dL Calcium 7.0 L (8.6-10.4) mg/dl Phosphorus 2.0 L (2.5-4.5) mg/dL Magnesium 2.1 (1.6-2.3) mg/dL Total Bilirubin 0.8 (0.2-1.3) mg/dL AST 30 (14-36) U/L ALT 24 (9-52) U/L Alkaline Phosphatase 56 (38-126) U/L Total Protein 5.6 L (6.3-8.3) g/dL Albumin 2.7 L (3.5-5.0) g/dL Globulin 2.9 (2.2-3.9) gm/dL Albumin/Globulin Ratio 0.9 L (1.0-2.1) TSH 3rd Generation 1.18 (0.46-4.68) mIU/L IZABELLA Screen (Negative) Lyme IgG 18 kDa Band Lyme IgG 23 kDa Band Lyme IgG 28 kDa Band Lyme IgG 30 kDa Band Lyme IgG 39 kDa Band Lyme IgG 41 kDa Band Lyme IgG 45 kDa Band Lyme IgG 58 kDa Band Lyme IgG 66 kDa Band Lyme IgG 93 kDa Band Lyme IgG W Blot Interp (Negative) Lyme IgM 23 kDa Band Lyme IgM 39 kDa Band Lyme IgM 41 kDa Band Lyme IgM W Blot Interp (Negative) HSV Source Description HIV 1&2 Antibody Screen Negative (NEGATIVE) 10/25/18 10/25/18 Range/Units 20:31 18:50 WBC (4.8-10.8) K/uL RBC (3.80-5.20) Mil/uL Hgb (11.0-16.0) g/dL Hct (34.0-47.0) % MCV (81.0-99.0) fL MCH (27.0-31.0) pg MCHC (33.0-37.0) g/dL RDW (11.5-14.5) % Plt Count (130-400) K/uL MPV (7.2-11.7) fL Neut % (Auto) (50.0-75.0) % Lymph % (Auto) (20.0-40.0) % Pierce % (Auto) (0.0-10.0) % Eos % (Auto) (0.0-4.0) % Baso % (Auto) (0.0-2.0) % Neut # (Auto) (1.8-7.0) K/uL Lymph # (Auto) (1.0-4.3) K/uL Pierce # (Auto) (0.0-0.8) K/uL Eos # (Auto) (0.0-0.7) K/uL Baso # (Auto) (0.0-0.2) K/uL Neutrophils % (Manual) (50-75) % Lymphocytes % (Manual) (20-40) % Monocytes % (Manual) (0-10) % Eosinophils % (Manual) (0-4) % Platelet Estimate (NORMAL) Hypochromasia (manual) Anisocytosis (manual) Sodium (132-148) mmol/L Potassium (3.6-5.2) mmol/L Chloride (98-107) mmol/L Carbon Dioxide (22-30) mmol/L Anion Gap (10-20) BUN (7-17) mg/dL Creatinine (0.7-1.2) mg/dL Est GFR ( Amer) Est GFR (Non-Af Amer) Random Glucose (65-105) mg/dL Calcium (8.6-10.4) mg/dl Phosphorus (2.5-4.5) mg/dL Magnesium (1.6-2.3) mg/dL Total Bilirubin (0.2-1.3) mg/dL AST (14-36) U/L ALT (9-52) U/L Alkaline Phosphatase (38-126) U/L Total Protein (6.3-8.3) g/dL Albumin (3.5-5.0) g/dL Globulin (2.2-3.9) gm/dL Albumin/Globulin Ratio (1.0-2.1) TSH 3rd Generation (0.46-4.68) mIU/L IZABELLA Screen Negative (Negative) Lyme IgG 18 kDa Band Reactive H Lyme IgG 23 kDa Band Nonreactive Lyme IgG 28 kDa Band Nonreactive Lyme IgG 30 kDa Band Nonreactive Lyme IgG 39 kDa Band Nonreactive Lyme IgG 41 kDa Band Reactive H Lyme IgG 45 kDa Band Nonreactive Lyme IgG 58 kDa Band Nonreactive Lyme IgG 66 kDa Band Nonreactive Lyme IgG 93 kDa Band Nonreactive Lyme IgG W Blot Interp Negative (Negative) Lyme IgM 23 kDa Band Nonreactive Lyme IgM 39 kDa Band Nonreactive Lyme IgM 41 kDa Band Reactive H Lyme IgM W Blot Interp Negative (Negative) HSV Source Description HIV 1&2 Antibody Screen (NEGATIVE) Laboratory Results - last 24 hr 10/25/18 10/25/18 10/27/18 18:50 20:31 05:52 WBC RBC Hgb Hct MCV MCH MCHC RDW Plt Count MPV Neut % (Auto) Lymph % (Auto) Pierce % (Auto) Eos % (Auto) Baso % (Auto) Neut # (Auto) Lymph # (Auto) Pierce # (Auto) Eos # (Auto) Baso # (Auto) Neutrophils % (Manual) Lymphocytes % (Manual) Monocytes % (Manual) Eosinophils % (Manual) Platelet Estimate Hypochromasia (manual) Anisocytosis (manual) Sodium 130 L Potassium 3.6 Chloride 101 Carbon Dioxide 25 Anion Gap 8 L BUN 17 Creatinine 0.7 Est GFR ( Amer) > 60 Est GFR (Non-Af Amer) > 60 Random Glucose 97 Calcium 7.0 L Phosphorus 2.0 L Magnesium 2.1 Total Bilirubin 0.8 AST 30 ALT 24 Alkaline Phosphatase 56 Total Protein 5.6 L Albumin 2.7 L Globulin 2.9 Albumin/Globulin Ratio 0.9 L TSH 3rd Generation 1.18 IZABELLA Screen Negative Lyme IgG 18 kDa Band Reactive H Lyme IgG 23 kDa Band Nonreactive Lyme IgG 28 kDa Band Nonreactive Lyme IgG 30 kDa Band Nonreactive Lyme IgG 39 kDa Band Nonreactive Lyme IgG 41 kDa Band Reactive H Lyme IgG 45 kDa Band Nonreactive Lyme IgG 58 kDa Band Nonreactive Lyme IgG 66 kDa Band Nonreactive Lyme IgG 93 kDa Band Nonreactive Lyme IgG W Blot Interp Negative Lyme IgM 23 kDa Band Nonreactive Lyme IgM 39 kDa Band Nonreactive Lyme IgM 41 kDa Band Reactive H Lyme IgM W Blot Interp Negative HSV Source Description HIV 1&2 Antibody Screen 10/27/18 10/27/18 10/27/18 05:52 07:20 07:20 WBC RBC Hgb Hct MCV MCH MCHC RDW Plt Count MPV Neut % (Auto) Lymph % (Auto) Pierce % (Auto) Eos % (Auto) Baso % (Auto) Neut # (Auto) Lymph # (Auto) Pierce # (Auto) Eos # (Auto) Baso # (Auto) Neutrophils % (Manual) 67 Lymphocytes % (Manual) 13 L Monocytes % (Manual) 19 H Eosinophils % (Manual) 1 Platelet Estimate Normal Hypochromasia (manual) Slight Anisocytosis (manual) Slight Sodium Potassium Chloride Carbon Dioxide Anion Gap BUN Creatinine Est GFR ( Amer) Est GFR (Non-Af Amer) Random Glucose Calcium Phosphorus Magnesium Total Bilirubin AST ALT Alkaline Phosphatase Total Protein Albumin Globulin Albumin/Globulin Ratio TSH 3rd Generation IZABELLA Screen Lyme IgG 18 kDa Band Lyme IgG 23 kDa Band Lyme IgG 28 kDa Band Lyme IgG 30 kDa Band Lyme IgG 39 kDa Band Lyme IgG 41 kDa Band Lyme IgG 45 kDa Band Lyme IgG 58 kDa Band Lyme IgG 66 kDa Band Lyme IgG 93 kDa Band Lyme IgG W Blot Interp Lyme IgM 23 kDa Band Lyme IgM 39 kDa Band Lyme IgM 41 kDa Band Lyme IgM W Blot Interp HSV Source Description Serum, vial pour-off HIV 1&2 Antibody Screen Negative 10/28/18 10/28/18 06:00 06:00 WBC 7.2 RBC 3.52 L Hgb 9.0 L Hct 29.0 L MCV 82.6 MCH 25.7 L MCHC 31.2 L RDW 18.1 H Plt Count 222 MPV 8.0 Neut % (Auto) 55.1 Lymph % (Auto) 21.9 Pierce % (Auto) 19.5 H Eos % (Auto) 2.9 Baso % (Auto) 0.6 Neut # (Auto) 4.0 Lymph # (Auto) 1.6 Pierce # (Auto) 1.4 H Eos # (Auto) 0.2 Baso # (Auto) 0.0 Neutrophils % (Manual) Lymphocytes % (Manual) Monocytes % (Manual) Eosinophils % (Manual) Platelet Estimate Hypochromasia (manual) Anisocytosis (manual) Sodium 133 Potassium 3.2 L Chloride 99 Carbon Dioxide 31 H Anion Gap 6 L BUN 7 Creatinine 0.5 L Est GFR ( Amer) > 60 Est GFR (Non-Af Amer) > 60 Random Glucose 92 Calcium 7.6 L Phosphorus 2.2 L Magnesium 2.1 Total Bilirubin 0.6 AST 35 ALT 26 Alkaline Phosphatase 63 Total Protein 5.5 L Albumin 2.6 L Globulin 2.9 Albumin/Globulin Ratio 0.9 L TSH 3rd Generation IZABELLA Screen Lyme IgG 18 kDa Band Lyme IgG 23 kDa Band Lyme IgG 28 kDa Band Lyme IgG 30 kDa Band Lyme IgG 39 kDa Band Lyme IgG 41 kDa Band Lyme IgG 45 kDa Band Lyme IgG 58 kDa Band Lyme IgG 66 kDa Band Lyme IgG 93 kDa Band Lyme IgG W Blot Interp Lyme IgM 23 kDa Band Lyme IgM 39 kDa Band Lyme IgM 41 kDa Band Lyme IgM W Blot Interp HSV Source Description HIV 1&2 Antibody Screen Review of Systems - Review of Systems All systems: reviewed and no additional remarkable complaints except - Constitutional Constitutional: absent: Fever, Chills, Sweats, Weakness - EENT Eyes: UNREMARKABLE. absent: Blind Spots, Discharge Ears: UNREMARKABLE Nose/Mouth/Throat: UNREMARKABLE - Cardiovascular Cardiovascular: UNREMARKABLE. absent: Chest Pain, Chest Pain at Rest, Dyspnea - Respiratory Respiratory: UNREMARKABLE. absent: Dyspnea, Dyspnea on Exertion - Gastrointestinal Gastrointestinal: Abdominal Pain, UNREMARKABLE. absent: Diarrhea - Musculoskeletal Musculoskeletal: UNREMARKABLE. absent: Arthralgias, Joint Swelling, Muscle Weakness - Integumentary Integumentary: UNREMARKABLE. absent: Acne - Neurological Neurological: UNREMARKABLE. absent: Dizziness, Headaches - Psychiatric Psychiatric: UNREMARKABLE. absent: Confusion, Depression - Endocrine Endocrine: UNREMARKABLE Critical Care Progress Note - Prophylaxis GI Prophylaxis GI: PPI - Prophylaxis DVT Prophylaxis DVT: Not Indicated - Nutrition Nutrition: Nutrition Category Date Time Status Liquid Diet [DIET] Diets 10/26/18 Breakfast Active Assessment/Plan - Assessment and Plan (Free Text) Assessment: 62 F w/ PMhx of Afib & pacemaker (on eliquis at home) currently admitted to ICU for monitoring for weakness/ GI bleed, had episode of afib w/ RVR, large pericardial effusion s/p POD # 3 for pericardial window w/ CARMEN drain. EDG deferred by GI. In AM patient had tachycardia, co-reg was resumed. 1) pericardial tamponade 2) afib RVR 3) anemia Plan: Neuro - A&O x3 Cardio - s/p pericardial window - continue to monitor - off cardizem drip - biopsy - fluid negative for malignant cells Resp - vitals wnl - continue to monitor GI - protonix 40 mg PO daily - heart healthy diet Heme - H/H stable s/p 2 units PRBCs on admission - WBC normalized - likely 2/2 to pericardial effusion - F/u IZABELLA, lyme, rehumatoid factor, Quantiforon gold - Ceftriaxone 2g daily Renal - GENE resolved - likely 2/2 to pericardial effusion - trend AM labs - freely voiding PPx: - GI: protonix - DVT: VTE contraindicated due to GI bleed <Parag Charles M - Last Filed: 10/28/18 17:57> CCU Objective - Vital Signs / Intake & Output Vital Signs (Last 4 hours): Vital Signs Temp Pulse Resp BP Pulse Ox 10/28/18 17:00 92 H 19 105/63 91 L 10/28/18 16:00 98.4 F 83 19 99/42 L 94 L 10/28/18 15:00 79 21 90/46 L 94 L 10/28/18 14:00 79 20 97/46 L 94 L Intake and Output (Last 8hrs): Intake & Output 10/28/18 10/28/18 10/28/18 06:59 14:59 22:59 Intake Total 600 540 120 Output Total 1760 500 Balance -1160 40 120 Weight 143 lb 11.862 oz Intake: Intake, IV Amount 200 Left Antecubital 200 Oral 600 340 120 Output: Drainage 10 Anterior Chest 10 Urine 1750 500 Urine, Voided 1750 500 - Medications Active Medications: Active Medications Generic Name Dose Route Start Last Admin Trade Name Romanq PRN Reason Stop Dose Admin Carvedilol 3.125 mg 10/23/18 19:45 10/28/18 17:14 Coreg PO 3.125 mg BID LAYTON Administration Ferric Sodium Gluconate Complex 125 mg 10/27/18 10:00 10/28/18 09:14 Ferrlecit IVPB 11/04/18 10:01 125 mg DAILY L[facility]TON Administration Ceftriaxone Sodium 2 gm/ 100 mls @ 100 mls/hr 10/25/18 22:00 10/28/18 09:16 Sodium Chloride IVPB 100 mls/hr DAILY L[facility]TON Administration Protocol Morphine Sulfate 2 mg 10/25/18 21:20 10/27/18 12:15 Morphine IVP 2 mg Q4 PRN Administration moderate to severe pain Pantoprazole Sodium 40 mg 10/28/18 10:00 10/28/18 10:03 Protonix Ec Tab PO 40 mg DAILY L[facility]TON Administration - Patient Studies Lab Studies: Microbiology Studies 10/25/18 15:00 Blood Culture - Preliminary Blood NO GROWTH AFTER 3 DAYS 10/25/18 14:30 Blood Culture - Preliminary Blood NO GROWTH AFTER 3 DAYS 10/25/18 19:41 Gram Stain - Final Pericardial Fluid Body Fluid Culture - Preliminary NO GROWTH AFTER 3 DAYS 10/25/18 19:41 Mycobacterial Culture - Preliminary Other: Please Indicate 10/25/18 19:41 Anaerobic Culture - Final Pericardial Fluid NO ANAEROBES ISOLATED. Lab Studies 10/28/18 10/28/18 10/27/18 Range/Units 06:00 06:00 07:20 WBC 7.2 (4.8-10.8) K/uL RBC 3.52 L (3.80-5.20) Mil/uL Hgb 9.0 L (11.0-16.0) g/dL Hct 29.0 L (34.0-47.0) % MCV 82.6 (81.0-99.0) fL MCH 25.7 L (27.0-31.0) pg MCHC 31.2 L (33.0-37.0) g/dL RDW 18.1 H (11.5-14.5) % Plt Count 222 (130-400) K/uL MPV 8.0 (7.2-11.7) fL Neut % (Auto) 55.1 (50.0-75.0) % Lymph % (Auto) 21.9 (20.0-40.0) % Pierce % (Auto) 19.5 H (0.0-10.0) % Eos % (Auto) 2.9 (0.0-4.0) % Baso % (Auto) 0.6 (0.0-2.0) % Neut # (Auto) 4.0 (1.8-7.0) K/uL Lymph # (Auto) 1.6 (1.0-4.3) K/uL Pierce # (Auto) 1.4 H (0.0-0.8) K/uL Eos # (Auto) 0.2 (0.0-0.7) K/uL Baso # (Auto) 0.0 (0.0-0.2) K/uL Sodium 133 (132-148) mmol/L Potassium 3.2 L (3.6-5.2) mmol/L Chloride 99 (98-107) mmol/L Carbon Dioxide 31 H (22-30) mmol/L Anion Gap 6 L (10-20) BUN 7 (7-17) mg/dL Creatinine 0.5 L (0.7-1.2) mg/dL Est GFR ( Amer) > 60 Est GFR (Non-Af Amer) > 60 Random Glucose 92 (65-105) mg/dL Calcium 7.6 L (8.6-10.4) mg/dl Phosphorus 2.2 L (2.5-4.5) mg/dL Magnesium 2.1 (1.6-2.3) mg/dL Total Bilirubin 0.6 (0.2-1.3) mg/dL AST 35 (14-36) U/L ALT 26 (9-52) U/L Alkaline Phosphatase 63 (38-126) U/L Total Protein 5.5 L (6.3-8.3) g/dL Albumin 2.6 L (3.5-5.0) g/dL Globulin 2.9 (2.2-3.9) gm/dL Albumin/Globulin Ratio 0.9 L (1.0-2.1) IZABELLA Screen Negative (Negative) Laboratory Results - last 24 hr 10/27/18 10/28/18 10/28/18 07:20 06:00 06:00 WBC 7.2 RBC 3.52 L Hgb 9.0 L Hct 29.0 L MCV 82.6 MCH 25.7 L MCHC 31.2 L RDW 18.1 H Plt Count 222 MPV 8.0 Neut % (Auto) 55.1 Lymph % (Auto) 21.9 Pierce % (Auto) 19.5 H Eos % (Auto) 2.9 Baso % (Auto) 0.6 Neut # (Auto) 4.0 Lymph # (Auto) 1.6 Pierce # (Auto) 1.4 H Eos # (Auto) 0.2 Baso # (Auto) 0.0 Sodium 133 Potassium 3.2 L Chloride 99 Carbon Dioxide 31 H Anion Gap 6 L BUN 7 Creatinine 0.5 L Est GFR ( Amer) > 60 Est GFR (Non-Af Amer) > 60 Random Glucose 92 Calcium 7.6 L Phosphorus 2.2 L Magnesium 2.1 Total Bilirubin 0.6 AST 35 ALT 26 Alkaline Phosphatase 63 Total Protein 5.5 L Albumin 2.6 L Globulin 2.9 Albumin/Globulin Ratio 0.9 L IZABELLA Screen Negative Critical Care Progress Note - Nutrition Nutrition: Nutrition Category Date Time Status Heart Healthy Diet [DIET] Diets 10/28/18 Lunch Active Attending/Attestation - Attestation I have personally seen and examined this patient.: Yes I have fully participated in the care of the patient.: Yes I have reviewed all pertinent clinical information: Yes Notes (Text): 10/28/18 17:57 Today: October The Patient was seen and examined at the bedside, Medical records reviewed, and management issues were discussed and formulated with the house staff. I have reviewed all the relevant clinical, laboratory, hemodynamic, radiographic data and medications Events reviewed Pain issues, skin care, head of the bed elevation, glycemic control were addressed. Agree with above resident's assessment and treatment plans of care as transcribed in Dr. Ratliff's note.
[2018-10-28] MEDS ORDERED: Potassium Chloride 20 mEq ER Tab PO ONE (09:00)
[2018-10-28] MEDS: Ferric Sodium Gluconat Complex 62.5 mg/5 ml Vial IVPB SCH (09:14)
[2018-10-28] MEDS: cefTRIAXone 2 GM in Sodium Chloride 0.9% 100 ML IVPB SCH (09:16)
[2018-10-28] MEDS ORDERED: Pantoprazole 40 mg EC Tab PO SCH (10:00)
[2018-10-28] MEDS: Pantoprazole 40 mg EC Tab PO SCH (10:03)
[2018-10-28] MEDS ORDERED: Potassium Phosphate 15 MMOLE in Dextrose 5% In Water 250 ML IVPB ONE (11:00)
--- NOTE | 2018-10-28 11:27 | CP.PCM.PN ---
Subjective - Date & Time of Evaluation Date of Evaluation: 10/28/18 Time of Evaluation: 10:45 - Subjective Subjective: f/u anemia. Feels weak. Denies Rb, melena, fever, chills, SZ, LOC, LARA, CP, Myalgia Objective - Vital Signs/Intake and Output Vital Signs (last 24 hours): Temp Pulse Resp BP Pulse Ox 98.5 F 86 18 91/48 L 98 10/28/18 08:00 10/28/18 10:00 10/28/18 10:00 10/28/18 10:00 10/28/18 10:00 Intake and Output: 10/28/18 10/28/18 06:59 18:59 Intake Total 870 280 Output Total 1780 Balance -910 280 - Medications Medications: Current Medications Carvedilol (Coreg) 3.125 mg PO BID [facility] Last Admin: 10/28/18 09:12 Dose: 3.125 mg Ferric Sodium Gluconate Complex (Ferrlecit) 125 mg IVPB DAILY [facility] Stop: 11/04/18 10:01 Last Admin: 10/28/18 09:14 Dose: 125 mg Ceftriaxone Sodium 2 gm/ (Sodium Chloride) 100 mls @ 100 mls/hr IVPB DAILY [facility]; Protocol Last Admin: 10/28/18 09:16 Dose: 100 mls/hr Potassium Phosphate 15 mmole/ (Dextrose) 255 mls @ 42.5 mls/hr IVPB ONCE ONE Stop: 10/28/18 16:59 Morphine Sulfate (Morphine) 2 mg IVP Q4 PRN PRN Reason: moderate to severe pain Last Admin: 10/27/18 12:15 Dose: 2 mg Pantoprazole Sodium (Protonix Ec Tab) 40 mg PO DAILY [facility] - Labs Labs: 10/28/18 06:00 10/28/18 06:00 PT 17.2 SECONDS (9.7-12.2) H 10/26/18 05:14 INR 1.6 10/26/18 05:14 APTT 28 SECONDS (21-34) 10/26/18 05:14 - Constitutional Appears: Non-toxic - Respiratory Exam Respiratory Exam: Clear to Ausculation Bilateral - Cardiovascular Exam Cardiovascular Exam: RRR - GI/Abdominal Exam GI & Abdominal Exam: Soft, Normal Bowel Sounds. absent: Tenderness, Mass - Neurological Exam Neurological Exam: Alert, Oriented x3 - Psychiatric Exam Psychiatric exam: Normal Affect Assessment and Plan (1) Coagulopathy Status: Acute (2) Symptomatic anemia Assessment & Plan: Hb was 6. g pos. GI w/u when CLEAR BY CARDIOLOGY. s/p cardiac tamponade and sug window. Status: Acute (3) Atrial fibrillation Status: Acute (4) Hypertension Status: Chronic (5) Pacemaker Status: Acute (6) Pericardial effusion Status: Acute
--- NOTE | 2018-10-28 12:40 | CP.PCM.PN ---
Subjective - Date & Time of Evaluation Date of Evaluation: 10/28/18 Time of Evaluation: 12:37 - Subjective Subjective: Thoracic Progress note- Dr. Shea SURGERY NOTE FOR DR. SHEA pt seen and examined at bedside. Sung 30cc/24hr serosang fluid. denies chest pain, shortness of breath. continues to be in and out of A.Fib. Blood pressure improved overall. Objective - Vital Signs/Intake and Output Vital Signs (last 24 hours): Temp Pulse Resp BP Pulse Ox 98.3 F 78 18 92/47 L 97 10/28/18 12:00 10/28/18 12:00 10/28/18 12:00 10/28/18 12:00 10/28/18 12:00 Intake and Output: 10/28/18 10/28/18 06:59 18:59 Intake Total 870 440 Output Total 1780 Balance -910 440 - Medications Medications: Current Medications Carvedilol (Coreg) 3.125 mg PO BID [facility] Last Admin: 10/28/18 09:12 Dose: 3.125 mg Ferric Sodium Gluconate Complex (Ferrlecit) 125 mg IVPB DAILY [facility] Stop: 11/04/18 10:01 Last Admin: 10/28/18 09:14 Dose: 125 mg Ceftriaxone Sodium 2 gm/ (Sodium Chloride) 100 mls @ 100 mls/hr IVPB DAILY [facility]; Protocol Last Admin: 10/28/18 09:16 Dose: 100 mls/hr Potassium Phosphate 15 mmole/ (Dextrose) 255 mls @ 42.5 mls/hr IVPB ONCE ONE Stop: 10/28/18 16:59 Last Admin: 10/28/18 12:00 Dose: 42.5 mls/hr Morphine Sulfate (Morphine) 2 mg IVP Q4 PRN PRN Reason: moderate to severe pain Last Admin: 10/27/18 12:15 Dose: 2 mg Pantoprazole Sodium (Protonix Ec Tab) 40 mg PO DAILY [facility] Last Admin: 10/28/18 10:03 Dose: 40 mg - Labs Labs: 10/28/18 06:00 10/28/18 06:00 PT 17.2 SECONDS (9.7-12.2) H 10/26/18 05:14 INR 1.6 10/26/18 05:14 APTT 28 SECONDS (21-34) 10/26/18 05:14 - Constitutional Appears: Non-toxic, No Acute Distress - Head Exam Head Exam: ATRAUMATIC - Eye Exam Eye Exam: EOMI. absent: Scleral icterus - ENT Exam ENT Exam: Mucous Membranes Moist - Respiratory Exam Respiratory Exam: NORMAL BREATHING PATTERN. absent: Accessory Muscle Use, Respiratory Distress - Cardiovascular Exam Cardiovascular Exam: Tachycardia, Irregular Rhythm. absent: Bradycardia Additional comments: Pericardial drain i nplace 30cc serosang fluid - GI/Abdominal Exam GI & Abdominal Exam: Soft. absent: Distended, Firm, Guarding, Rigid, Tenderness - Neurological Exam Neurological Exam: Alert, Awake, Oriented x3 - Psychiatric Exam Psychiatric exam: Normal Affect - Skin Skin Exam: Intact, Warm Assessment and Plan - Assessment and Plan (Free Text) Assessment: 62F s/p pericardial window POD#3 Plan: - Monitor drain output - f/u Echo report - continued management per critical care team - CARMEN drain removed at bedside - further recs and management per Cardiac team - please re-consult PRN - further recs per Dr. Monse Romero PGY2
--- NOTE | 2018-10-28 16:49 | CP.PCM.PN ---
Subjective - Date & Time of Evaluation Date of Evaluation: 10/28/18 Time of Evaluation: 16:49 - Subjective Subjective: Improving well, H/H stable. Objective - Vital Signs/Intake and Output Vital Signs (last 24 hours): Temp Pulse Resp BP Pulse Ox 98.4 F 78 19 99/42 L 95 10/28/18 16:00 10/28/18 16:00 10/28/18 16:00 10/28/18 16:00 10/28/18 16:00 Intake and Output: 10/28/18 10/28/18 11:59 23:59 Intake Total 980 280 Output Total 1860 Balance -880 280 - Medications Medications: Current Medications Carvedilol (Coreg) 3.125 mg PO BID [facility] Last Admin: 10/28/18 09:12 Dose: 3.125 mg Ferric Sodium Gluconate Complex (Ferrlecit) 125 mg IVPB DAILY [facility] Stop: 11/04/18 10:01 Last Admin: 10/28/18 09:14 Dose: 125 mg Ceftriaxone Sodium 2 gm/ (Sodium Chloride) 100 mls @ 100 mls/hr IVPB DAILY [facility]; Protocol Last Admin: 10/28/18 09:16 Dose: 100 mls/hr Potassium Phosphate 15 mmole/ (Dextrose) 255 mls @ 42.5 mls/hr IVPB ONCE ONE Stop: 10/28/18 16:59 Last Admin: 10/28/18 12:00 Dose: 42.5 mls/hr Morphine Sulfate (Morphine) 2 mg IVP Q4 PRN PRN Reason: moderate to severe pain Last Admin: 10/27/18 12:15 Dose: 2 mg Pantoprazole Sodium (Protonix Ec Tab) 40 mg PO DAILY [facility] Last Admin: 10/28/18 10:03 Dose: 40 mg - Labs Labs: 10/28/18 06:00 10/28/18 06:00 PT 17.2 SECONDS (9.7-12.2) H 10/26/18 05:14 INR 1.6 10/26/18 05:14 APTT 28 SECONDS (21-34) 10/26/18 05:14 - Constitutional Appears: Chronically Ill - Head Exam Head Exam: ATRAUMATIC, NORMAL INSPECTION, NORMOCEPHALIC - Eye Exam Eye Exam: Normal appearance - Neck Exam Neck Exam: Full ROM - Respiratory Exam Respiratory Exam: Clear to Ausculation Bilateral - Cardiovascular Exam Cardiovascular Exam: REGULAR RHYTHM, +S1, +S2 - GI/Abdominal Exam GI & Abdominal Exam: Soft - Extremities Exam Extremities Exam: Normal Inspection - Neurological Exam Neurological Exam: Alert, Awake, Oriented x3 - Psychiatric Exam Psychiatric exam: Normal Mood - Skin Skin Exam: Normal Color Assessment and Plan (1) Rapid atrial fibrillation Status: Acute (2) Symptomatic anemia Status: Acute (3) Atrial fibrillation Status: Acute (4) Hypertensive cardiovascular disease Status: Acute (5) Wide-complex tachycardia Status: Acute (6) Hypertension Status: Chronic (7) Pericardial effusion Status: Acute (8) Cardiac tamponade Status: Acute
--- NOTE | 2018-10-28 19:54 | CARD ---
APPROVED REPORT Date of service: 10/27/2018 EXAM: Two-dimensional and M-mode echocardiogram with Doppler and color Doppler. INDICATION F/U TO PERICARDIAL EFFUSION M-Mode DIMENSIONS TAPSE12.97 cm Mitral Valve MV E Bmusinel496.9cm/sMV A Oiqzdztw55.5cm/sE/A ratio1.4 TDI E/Lateral E'0.0E/Medial E'0.0 Tricuspid Valve TR Peak [id number]/sTR Peak Gr.[id number] LEFT VENTRICLE The left ventricle is normal size. There is normal left ventricular wall thickness. Left ventricle systolic function is normal. The Ejection Fraction is 55-60%. There is normal LV segmental wall motion. The left ventricular diastolic function is normal. RIGHT VENTRICLE The right ventricle is normal size. There is normal right ventricular wall thickness. The right ventricular systolic function is normal. ATRIA The right atrium size is normal. TRICUSPID VALVE The tricuspid valve is normal in structure. There is mild tricuspid regurgitation. Right ventricular systolic pressure is estimated at 30-40 mmHg. There is mild pulmonary hypertension. PULMONIC VALVE The pulmonic valve is not well visualized. PERICARDIAL EFFUSION There is a small loculated anterior pericardial effusion. There is a small-moderate loculated posterior pericardial effusion. There are no echocardiographic indications of cardiac tamponade. <Conclusion> Left ventricle systolic function is normal. The Ejection Fraction is 55-60%. There is mild tricuspid regurgitation. There is mild pulmonary hypertension. There is a small loculated anterior pericardial effusion. There is a small-moderate loculated posterior pericardial effusion. There are no echocardiographic indications of cardiac tamponade.
--- NOTE | 2018-10-28 20:27 | CP.PCM.PN ---
Subjective - Date & Time of Evaluation Date of Evaluation: 10/28/18 Time of Evaluation: 20:25 - Subjective Subjective: INFECTIOUS DISEASE ICU PROGRESS NOTES MARK ANTHONY DOLAN MD,FACP 10/28/2018 CHART REVIEWED PT EXAMINED CASE DISCUSSED PT CLINICALLY IS SLOWLY RESPONDING. Patient seen and examined at bedside. Patient is POD #3 s/p pericardial window for pericardial effusion/ tamponade. This morning patient was tachycardiac at 130s. Patient reports minor pain around incision site that is well controlled with pain medicine. 10 CC drain in CARMEN drain. Patient denies headaches, vision changes, chest pain, SOB, cough, nausea, vomiting, abdominal pain, fevers, chills. 10/28/18 14:53 CCU Objective - Vital Signs / Intake & Output Vital Signs (Last 4 hours): Vital Signs Temp Pulse Resp BP Pulse Ox 10/28/18 05:57 122 H 18 106/62 98 10/28/18 04:57 91 H 15 105/49 L 98 10/28/18 04:00 98.3 F 10/28/18 03:56 77 11 L 114/49 L 99 Intake and Output (Last 8hrs): Intake & Output 10/27/18 10/28/18 10/28/18 22:59 06:59 14:59 Intake Total 490 600 Output Total 320 1760 Balance 170 -1160 Intake: Oral 490 600 Output: Drainage 20 10 Anterior Chest 20 10 Urine 300 1750 Urine, Voided 300 1750 - Physical Exam Head: Positive for: Atraumatic, Normocephalic Pupils: Positive for: PERRL Extroacular Muscles: Positive for: EOMI Conjunctiva: Positive for: Normal Mouth: Positive for: Moist Mucous Membranes Neck: Positive for: Normal Range of Motion, JVD Respiratory/Chest: Positive for: Clear to Auscultation, Good Air Exchange. Negative for: Accessory Muscle Use Cardiovascular: Positive for: Murmurs, Normal S1, S2, Other (CARMEN drain, 100 cc overnight) Abdomen: Positive for: Normal Bowel Sounds. Negative for: Tenderness, Distention, Guarding Upper Extremity: Positive for: Normal Inspection. Negative for: Edema Lower Extremity: Positive for: Normal Inspection. Negative for: Edema Neurological: Positive for: GCS=15 Skin: Positive for: Warm, Dry, Rashes, Normal Color Psychiatric: Positive for: Alert, Oriented x 3 - Medications Active Medications: Active Medications Generic Name Dose Route Start Last Admin Trade Name Freq PRN Reason Stop Dose Admin Carvedilol 3.125 mg 10/23/18 19:45 10/23/18 19:44 Coreg PO Not Given BID [facility] Ferric Sodium Gluconate Complex 125 mg 10/27/18 10:00 10/27/18 10:38 Ferrlecit IVPB 11/04/18 10:01 125 mg DAILY [facility] Administration Ceftriaxone Sodium 2 gm/ 100 mls @ 100 mls/hr 10/25/18 22:00 10/27/18 09:42 Sodium Chloride IVPB 100 mls/hr DAILY [facility] Administration Protocol Morphine Sulfate 2 mg 10/25/18 21:20 10/27/18 12:15 Morphine IVP 2 mg Q4 PRN Administration moderate to severe pain Pantoprazole Sodium 40 mg 10/27/18 14:30 10/28/18 02:38 Protonix Inj IVP 40 mg Q12H [facility] Administration - Patient Studies Lab Studies: Microbiology Studies 10/25/18 19:41 Mycobacterial Culture - Preliminary Other: Please Indicate 10/25/18 15:00 Blood Culture - Preliminary Blood NO GROWTH AFTER 48 HOURS 10/25/18 14:30 Blood Culture - Preliminary Blood NO GROWTH AFTER 48 HOURS 10/25/18 19:41 Anaerobic Culture - Final Pericardial Fluid NO ANAEROBES ISOLATED. 10/25/18 19:41 Gram Stain - Final Pericardial Fluid Body Fluid Culture - Preliminary NO GROWTH AFTER 2 DAYS 10/26/18 06:14 Urine Culture - Final Urine Random No Growth (<1,000 CFU/ML) Lab Studies 10/28/18 10/28/18 10/27/18 Range/Units 06:00 06:00 07:20 WBC 7.2 (4.8-10.8) K/uL RBC 3.52 L (3.80-5.20) Mil/uL Hgb 9.0 L (11.0-16.0) g/dL Hct 29.0 L (34.0-47.0) % MCV 82.6 (81.0-99.0) fL MCH 25.7 L (27.0-31.0) pg MCHC 31.2 L (33.0-37.0) g/dL RDW 18.1 H (11.5-14.5) % Plt Count 222 (130-400) K/uL MPV 8.0 (7.2-11.7) fL Neut % (Auto) 55.1 (50.0-75.0) % Lymph % (Auto) 21.9 (20.0-40.0) % Kershaw % (Auto) 19.5 H (0.0-10.0) % Eos % (Auto) 2.9 (0.0-4.0) % Baso % (Auto) 0.6 (0.0-2.0) % Neut # (Auto) 4.0 (1.8-7.0) K/uL Lymph # (Auto) 1.6 (1.0-4.3) K/uL Kershaw # (Auto) 1.4 H (0.0-0.8) K/uL Eos # (Auto) 0.2 (0.0-0.7) K/uL Baso # (Auto) 0.0 (0.0-0.2) K/uL Neutrophils % (Manual) (50-75) % Lymphocytes % (Manual) (20-40) % Monocytes % (Manual) (0-10) % Eosinophils % (Manual) (0-4) % Platelet Estimate (NORMAL) Hypochromasia (manual) Anisocytosis (manual) Sodium 133 (132-148) mmol/L Potassium 3.2 L (3.6-5.2) mmol/L Chloride 99 (98-107) mmol/L Carbon Dioxide 31 H (22-30) mmol/L Anion Gap 6 L (10-20) BUN 7 (7-17) mg/dL Creatinine 0.5 L (0.7-1.2) mg/dL Est GFR ( Amer) > 60 Est GFR (Non-Af Amer) > 60 Random Glucose 92 (65-105) mg/dL Calcium 7.6 L (8.6-10.4) mg/dl Phosphorus 2.2 L (2.5-4.5) mg/dL Magnesium 2.1 (1.6-2.3) mg/dL Total Bilirubin 0.6 (0.2-1.3) mg/dL AST 35 (14-36) U/L ALT 26 (9-52) U/L Alkaline Phosphatase 63 (38-126) U/L Total Protein 5.5 L (6.3-8.3) g/dL Albumin 2.6 L (3.5-5.0) g/dL Globulin 2.9 (2.2-3.9) gm/dL Albumin/Globulin Ratio 0.9 L (1.0-2.1) TSH 3rd Generation (0.46-4.68) mIU/L IZABELLA Screen (Negative) Lyme IgG 18 kDa Band Lyme IgG 23 kDa Band Lyme IgG 28 kDa Band Lyme IgG 30 kDa Band Lyme IgG 39 kDa Band Lyme IgG 41 kDa Band Lyme IgG 45 kDa Band Lyme IgG 58 kDa Band Lyme IgG 66 kDa Band Lyme IgG 93 kDa Band Lyme IgG W Blot Interp (Negative) Lyme IgM 23 kDa Band Lyme IgM 39 kDa Band Lyme IgM 41 kDa Band Lyme IgM W Blot Interp (Negative) HSV Source Description Serum, vial pour-off HIV 1&2 Antibody Screen (NEGATIVE) 10/27/18 10/27/18 10/27/18 Range/Units 07:20 05:52 05:52 WBC (4.8-10.8) K/uL RBC (3.80-5.20) Mil/uL Hgb (11.0-16.0) g/dL Hct (34.0-47.0) % MCV (81.0-99.0) fL MCH (27.0-31.0) pg MCHC (33.0-37.0) g/dL RDW (11.5-14.5) % Plt Count (130-400) K/uL MPV (7.2-11.7) fL Neut % (Auto) (50.0-75.0) % Lymph % (Auto) (20.0-40.0) % Kershaw % (Auto) (0.0-10.0) % Eos % (Auto) (0.0-4.0) % Baso % (Auto) (0.0-2.0) % Neut # (Auto) (1.8-7.0) K/uL Lymph # (Auto) (1.0-4.3) K/uL K[place]haw # (Auto) (0.0-0.8) K/uL Eos # (Auto) (0.0-0.7) K/uL Baso # (Auto) (0.0-0.2) K/uL Neutrophils % (Manual) 67 (50-75) % Lymphocytes % (Manual) 13 L (20-40) % Monocytes % (Manual) 19 H (0-10) % Eosinophils % (Manual) 1 (0-4) % Platelet Estimate Normal (NORMAL) Hypochromasia (manual) Slight Anisocytosis (manual) Slight Sodium 130 L (132-148) mmol/L Potassium 3.6 (3.6-5.2) mmol/L Chloride 101 (98-107) mmol/L Carbon Dioxide 25 (22-30) mmol/L Anion Gap 8 L (10-20) BUN 17 (7-17) mg/dL Creatinine 0.7 (0.7-1.2) mg/dL Est GFR ( Amer) > 60 Est GFR (Non-Af Amer) > 60 Random Glucose 97 (65-105) mg/dL Calcium 7.0 L (8.6-10.4) mg/dl Phosphorus 2.0 L (2.5-4.5) mg/dL Magnesium 2.1 (1.6-2.3) mg/dL Total Bilirubin 0.8 (0.2-1.3) mg/dL AST 30 (14-36) U/L ALT 24 (9-52) U/L Alkaline Phosphatase 56 (38-126) U/L Total Protein 5.6 L (6.3-8.3) g/dL Albumin 2.7 L (3.5-5.0) g/dL Globulin 2.9 (2.2-3.9) gm/dL Albumin/Globulin Ratio 0.9 L (1.0-2.1) TSH 3rd Generation 1.18 (0.46-4.68) mIU/L IZABELLA Screen (Negative) Lyme IgG 18 kDa Band Lyme IgG 23 kDa Band Lyme IgG 28 kDa Band Lyme IgG 30 kDa Band Lyme IgG 39 kDa Band Lyme IgG 41 kDa Band Lyme IgG 45 kDa Band Lyme IgG 58 kDa Band Lyme IgG 66 kDa Band Lyme IgG 93 kDa Band Lyme IgG W Blot Interp (Negative) Lyme IgM 23 kDa Band Lyme IgM 39 kDa Band Lyme IgM 41 kDa Band Lyme IgM W Blot Interp (Negative) HSV Source Description HIV 1&2 Antibody Screen Negative (NEGATIVE) 10/25/18 10/25/18 Range/Units 20:31 18:50 WBC (4.8-10.8) K/uL RBC (3.80-5.20) Mil/uL Hgb (11.0-16.0) g/dL Hct (34.0-47.0) % MCV (81.0-99.0) fL MCH (27.0-31.0) pg MCHC (33.0-37.0) g/dL RDW (11.5-14.5) % Plt Count (130-400) K/uL MPV (7.2-11.7) fL Neut % (Auto) (50.0-75.0) % Lymph % (Auto) (20.0-40.0) % Kershaw % (Auto) (0.0-10.0) % Eos % (Auto) (0.0-4.0) % Baso % (Auto) (0.0-2.0) % Neut # (Auto) (1.8-7.0) K/uL Lymph # (Auto) (1.0-4.3) K/uL Kershaw # (Auto) (0.0-0.8) K/uL Eos # (Auto) (0.0-0.7) K/uL Baso # (Auto) (0.0-0.2) K/uL Neutrophils % (Manual) (50-75) % Lymphocytes % (Manual) (20-40) % Monocytes % (Manual) (0-10) % Eosinophils % (Manual) (0-4) % Platelet Estimate (NORMAL) Hypochromasia (manual) Anisocytosis (manual) Sodium (132-148) mmol/L Potassium (3.6-5.2) mmol/L Chloride (98-107) mmol/L Carbon Dioxide (22-30) mmol/L Anion Gap (10-20) BUN (7-17) mg/dL Creatinine (0.7-1.2) mg/dL Est GFR ( Amer) Est GFR (Non-Af Amer) Random Glucose (65-105) mg/dL Calcium (8.6-10.4) mg/dl Phosphorus (2.5-4.5) mg/dL Magnesium (1.6-2.3) mg/dL Total Bilirubin (0.2-1.3) mg/dL AST (14-36) U/L ALT (9-52) U/L Alkaline Phosphatase (38-126) U/L Total Protein (6.3-8.3) g/dL Albumin (3.5-5.0) g/dL Globulin (2.2-3.9) gm/dL Albumin/Globulin Ratio (1.0-2.1) TSH 3rd Generation (0.46-4.68) mIU/L IZABELLA Screen Negative (Negative) Lyme IgG 18 kDa Band Reactive H Lyme IgG 23 kDa Band Nonreactive Lyme IgG 28 kDa Band Nonreactive Lyme IgG 30 kDa Band Nonreactive Lyme IgG 39 kDa Band Nonreactive Lyme IgG 41 kDa Band Reactive H Lyme IgG 45 kDa Band Nonreactive Lyme IgG 58 kDa Band Nonreactive Lyme IgG 66 kDa Band Nonreactive Lyme IgG 93 kDa Band Nonreactive Lyme IgG W Blot Interp Negative (Negative) Lyme IgM 23 kDa Band Nonreactive Lyme IgM 39 kDa Band Nonreactive Lyme IgM 41 kDa Band Reactive H Lyme IgM W Blot Interp Negative (Negative) HSV Source Description HIV 1&2 Antibody Screen (NEGATIVE) Laboratory Results - last 24 hr 10/25/18 10/25/18 10/27/18 18:50 20:31 05:52 WBC RBC Hgb Hct MCV MCH MCHC RDW Plt Count MPV Neut % (Auto) Lymph % (Auto) Kershaw % (Auto) Eos % (Auto) Baso % (Auto) Neut # (Auto) Lymph # (Auto) [place]haw # (Auto) Eos # (Auto) Baso # (Auto) Neutrophils % (Manual) Lymphocytes % (Manual) Monocytes % (Manual) Eosinophils % (Manual) Platelet Estimate Hypochromasia (manual) Anisocytosis (manual) Sodium 130 L Potassium 3.6 Chloride 101 Carbon Dioxide 25 Anion Gap 8 L BUN 17 Creatinine 0.7 Est GFR ( Amer) > 60 Est GFR (Non-Af Amer) > 60 Random Glucose 97 Calcium 7.0 L Phosphorus 2.0 L Magnesium 2.1 Total Bilirubin 0.8 AST 30 ALT 24 Alkaline Phosphatase 56 Total Protein 5.6 L Albumin 2.7 L Globulin 2.9 Albumin/Globulin Ratio 0.9 L TSH 3rd Generation 1.18 IZABELLA Screen Negative Lyme IgG 18 kDa Band Reactive H Lyme IgG 23 kDa Band Nonreactive Lyme IgG 28 kDa Band Nonreactive Lyme IgG 30 kDa Band Nonreactive Lyme IgG 39 kDa Band Nonreactive Lyme IgG 41 kDa Band Reactive H Lyme IgG 45 kDa Band Nonreactive Lyme IgG 58 kDa Band Nonreactive Lyme IgG 66 kDa Band Nonreactive Lyme IgG 93 kDa Band Nonreactive Lyme IgG W Blot Interp Negative Lyme IgM 23 kDa Band Nonreactive Lyme IgM 39 kDa Band Nonreactive Lyme IgM 41 kDa Band Reactive H Lyme IgM W Blot Interp Negative HSV Source Description HIV 1&2 Antibody Screen 10/27/18 10/27/18 10/27/18 05:52 07:20 07:20 WBC RBC Hgb Hct MCV MCH MCHC RDW Plt Count MPV Neut % (Auto) Lymph % (Auto) Kershaw % (Auto) Eos % (Auto) Baso % (Auto) Neut # (Auto) Lymph # (Auto) [place]haw # (Auto) Eos # (Auto) Baso # (Auto) Neutrophils % (Manual) 67 Lymphocytes % (Manual) 13 L Monocytes % (Manual) 19 H Eosinophils % (Manual) 1 Platelet Estimate Normal Hypochromasia (manual) Slight Anisocytosis (manual) Slight Sodium Potassium Chloride Carbon Dioxide Anion Gap BUN Creatinine Est GFR ( Amer) Est GFR (Non-Af Amer) Random Glucose Calcium Phosphorus Magnesium Total Bilirubin AST ALT Alkaline Phosphatase Total Protein Albumin Globulin Albumin/Globulin Ratio TSH 3rd Generation IZABELLA Screen Lyme IgG 18 kDa Band Lyme IgG 23 kDa Band Lyme IgG 28 kDa Band Lyme IgG 30 kDa Band Lyme IgG 39 kDa Band Lyme IgG 41 kDa Band Lyme IgG 45 kDa Band Lyme IgG 58 kDa Band Lyme IgG 66 kDa Band Lyme IgG 93 kDa Band Lyme IgG W Blot Interp Lyme IgM 23 kDa Band Lyme IgM 39 kDa Band Lyme IgM 41 kDa Band Lyme IgM W Blot Interp HSV Source Description Serum, vial pour-off HIV 1&2 Antibody Screen Negative 10/28/18 10/28/18 06:00 06:00 WBC 7.2 RBC 3.52 L Hgb 9.0 L Hct 29.0 L MCV 82.6 MCH 25.7 L MCHC 31.2 L RDW 18.1 H Plt Count 222 MPV 8.0 Neut % (Auto) 55.1 Lymph % (Auto) 21.9 Kershaw % (Auto) 19.5 H Eos % (Auto) 2.9 Baso % (Auto) 0.6 Neut # (Auto) 4.0 Lymph # (Auto) 1.6 Kershaw # (Auto) 1.4 H Eos # (Auto) 0.2 Baso # (Auto) 0.0 Neutrophils % (Manual) Lymphocytes % (Manual) Monocytes % (Manual) Eosinophils % (Manual) Platelet Estimate Hypochromasia (manual) Anisocytosis (manual) Sodium 133 Potassium 3.2 L Chloride 99 Carbon Dioxide 31 H Anion Gap 6 L BUN 7 Creatinine 0.5 L Est GFR ( Amer) > 60 Est GFR (Non-Af Amer) > 60 Random Glucose 92 Calcium 7.6 L Phosphorus 2.2 L Magnesium 2.1 Total Bilirubin 0.6 AST 35 ALT 26 Alkaline Phosphatase 63 Total Protein 5.5 L Albumin 2.6 L Globulin 2.9 Albumin/Globulin Ratio 0.9 L TSH 3rd Generation IZABELLA Screen Lyme IgG 18 kDa Band Lyme IgG 23 kDa Band Lyme IgG 28 kDa Band Lyme IgG 30 kDa Band Lyme IgG 39 kDa Band Lyme IgG 41 kDa Band Lyme IgG 45 kDa Band Lyme IgG 58 kDa Band Lyme IgG 66 kDa Band Lyme IgG 93 kDa Band Lyme IgG W Blot Interp Lyme IgM 23 kDa Band Lyme IgM 39 kDa Band Lyme IgM 41 kDa Band Lyme IgM W Blot Interp HSV Source Description HIV 1&2 Antibody Screen Review of Systems - Review of Systems All systems: reviewed and no additional remarkable complaints except - Constitutional Constitutional: absent: Fever, Chills, Sweats, Weakness - EENT Eyes: UNREMARKABLE. absent: Blind Spots, Discharge Ears: UNREMARKABLE Nose/Mouth/Throat: UNREMARKABLE - Cardiovascular Cardiovascular: UNREMARKABLE. absent: Chest Pain, Chest Pain at Rest, Dyspnea - Respiratory Respiratory: UNREMARKABLE. absent: Dyspnea, Dyspnea on Exertion - Gastrointestinal Gastrointestinal: Abdominal Pain, UNREMARKABLE. absent: Diarrhea - Musculoskeletal Musculoskeletal: UNREMARKABLE. absent: Arthralgias, Joint Swelling, Muscle Weakness - Integumentary Integumentary: UNREMARKABLE. absent: Acne - Neurological Neurological: UNREMARKABLE. absent: Dizziness, Headaches - Psychiatric Psychiatric: UNREMARKABLE. absent: Confusion, Depression - Endocrine Endocrine: UNREMARKABLE Critical Care Progress Note - Prophylaxis GI Prophylaxis GI: PPI - Prophylaxis DVT Prophylaxis DVT: Not Indicated - Nutrition Nutrition: Nutrition Category Date Time Status Liquid Diet [DIET] Diets 10/26/18 Breakfast Active Assessment/Plan - Assessment and Plan (Free Text) Assessment: 62 F w/ PMhx of Afib & pacemaker (on eliquis at home) currently admitted to ICU for monitoring for weakness/ GI bleed, had episode of afib w/ RVR, large pericardial effusion s/p POD # 3 for pericardial window w/ CARMEN drain. EDG deferred by GI. In AM patient had tachycardia, co-reg was resumed. 1) pericardial tamponade 2) afib RVR 3) anemia Plan: Neuro - A&O x3 Cardio - s/p pericardial window - continue to monitor - off cardizem drip - biopsy - fluid negative for malignant cells Resp - vitals wnl - continue to monitor GI - protonix 40 mg PO daily - heart healthy diet Heme - H/H stable s/p 2 units PRBCs on admission - WBC normalized - likely 2/2 to pericardial effusion - F/u IZABELLA, lyme, rehumatoid factor, Quantiforon gold - Ceftriaxone 2g daily Renal - GENE resolved - likely 2/2 to pericardial effusion - trend AM labs - freely voiding PPx: - GI: protonix - DVT: VTE contraindicated due to GI bleed <Parag Charles M - Last Filed: 10/28/18 17:57> CCU Objective - Vital Signs / Intake & Output Vital Signs (Last 4 hours): Vital Signs Temp Pulse Resp BP Pulse Ox 10/28/18 17:00 92 H 19 105/63 91 L 10/28/18 16:00 98.4 F 83 19 99/42 L 94 L 10/28/18 15:00 79 21 90/46 L 94 L 10/28/18 14:00 79 20 97/46 L 94 L Intake and Output (Last 8hrs): Intake & Output 10/28/18 10/28/18 10/28/18 06:59 14:59 22:59 Intake Total 600 540 120 Output Total 1760 500 Balance -1160 40 120 Weight 143 lb 11.862 oz Intake: Intake, IV Amount 200 Left Antecubital 200 Oral 600 340 120 Output: Drainage 10 Anterior Chest 10 Urine 1750 500 Urine, Voided 1750 500 - Medications Active Medications: Active Medications Generic Name Dose Route Start Last Admin Trade Name Freq PRN Reason Stop Dose Admin Carvedilol 3.125 mg 10/23/18 19:45 10/28/18 17:14 Coreg PO 3.125 mg BID [facility] Administration Ferric Sodium Gluconate Complex 125 mg 10/27/18 10:00 10/28/18 09:14 Ferrlecit IVPB 11/04/18 10:01 125 mg DAILY [facility] Administration Ceftriaxone Sodium 2 gm/ 100 mls @ 100 mls/hr 10/25/18 22:00 10/28/18 09:16 Sodium Chloride IVPB 100 mls/hr DAILY [facility] Administration Protocol Morphine Sulfate 2 mg 10/25/18 21:20 10/27/18 12:15 Morphine IVP 2 mg Q4 PRN Administration moderate to severe pain Pantoprazole Sodium 40 mg 10/28/18 10:00 10/28/18 10:03 Protonix Ec Tab PO 40 mg DAILY [facility] Administration - Patient Studies Lab Studies: Microbiology Studies 10/25/18 15:00 Blood Culture - Preliminary Blood NO GROWTH AFTER 3 DAYS 10/25/18 14:30 Blood Culture - Preliminary Blood NO GROWTH AFTER 3 DAYS 10/25/18 19:41 Gram Stain - Final Pericardial Fluid Body Fluid Culture - Preliminary NO GROWTH AFTER 3 DAYS 10/25/18 19:41 Mycobacterial Culture - Preliminary Other: Please Indicate 10/25/18 19:41 Anaerobic Culture - Final Pericardial Fluid NO ANAEROBES ISOLATED. Lab Studies 10/28/18 10/28/18 10/27/18 Range/Units 06:00 06:00 07:20 WBC 7.2 (4.8-10.8) K/uL RBC 3.52 L (3.80-5.20) Mil/uL Hgb 9.0 L (11.0-16.0) g/dL Hct 29.0 L (34.0-47.0) % MCV 82.6 (81.0-99.0) fL MCH 25.7 L (27.0-31.0) pg MCHC 31.2 L (33.0-37.0) g/dL RDW 18.1 H (11.5-14.5) % Plt Count 222 (130-400) K/uL MPV 8.0 (7.2-11.7) fL Neut % (Auto) 55.1 (50.0-75.0) % Lymph % (Auto) 21.9 (20.0-40.0) % K[place]haw % (Auto) 19.5 H (0.0-10.0) % Eos % (Auto) 2.9 (0.0-4.0) % Baso % (Auto) 0.6 (0.0-2.0) % Neut # (Auto) 4.0 (1.8-7.0) K/uL Lymph # (Auto) 1.6 (1.0-4.3) K/uL Kershaw # (Auto) 1.4 H (0.0-0.8) K/uL Eos # (Auto) 0.2 (0.0-0.7) K/uL Baso # (Auto) 0.0 (0.0-0.2) K/uL Sodium 133 (132-148) mmol/L Potassium 3.2 L (3.6-5.2) mmol/L Chloride 99 (98-107) mmol/L Carbon Dioxide 31 H (22-30) mmol/L Anion Gap 6 L (10-20) BUN 7 (7-17) mg/dL Creatinine 0.5 L (0.7-1.2) mg/dL Est GFR ( Amer) > 60 Est GFR (Non-Af Amer) > 60 Random Glucose 92 (65-105) mg/dL Calcium 7.6 L (8.6-10.4) mg/dl Phosphorus 2.2 L (2.5-4.5) mg/dL Magnesium 2.1 (1.6-2.3) mg/dL Total Bilirubin 0.6 (0.2-1.3) mg/dL AST 35 (14-36) U/L ALT 26 (9-52) U/L Alkaline Phosphatase 63 (38-126) U/L Total Protein 5.5 L (6.3-8.3) g/dL Albumin 2.6 L (3.5-5.0) g/dL Globulin 2.9 (2.2-3.9) gm/dL Albumin/Globulin Ratio 0.9 L (1.0-2.1) IZABELLA Screen Negative (Negative) Laboratory Results - last 24 hr 10/27/18 10/28/18 10/28/18 07:20 06:00 06:00 WBC 7.2 RBC 3.52 L Hgb 9.0 L Hct 29.0 L MCV 82.6 MCH 25.7 L MCHC 31.2 L RDW 18.1 H Plt Count 222 MPV 8.0 Neut % (Auto) 55.1 Lymph % (Auto) 21.9 [place]haw % (Auto) 19.5 H Eos % (Auto) 2.9 Baso % (Auto) 0.6 Neut # (Auto) 4.0 Lymph # (Auto) 1.6 [place]haw # (Auto) 1.4 H Eos # (Auto) 0.2 Baso # (Auto) 0.0 Sodium 133 Potassium 3.2 L Chloride 99 Carbon Dioxide 31 H Anion Gap 6 L BUN 7 Creatinine 0.5 L Est GFR ( Amer) > 60 Est GFR (Non-Af Amer) > 60 Random Glucose 92 Calcium 7.6 L Phosphorus 2.2 L Magnesium 2.1 Total Bilirubin 0.6 AST 35 ALT 26 Alkaline Phosphatase 63 Total Protein 5.5 L Albumin 2.6 L Globulin 2.9 Albumin/Globulin Ratio 0.9 L IZABELLA Screen Negative Critical Care Progress Note - Nutrition Nutrition: Nutrition Category Date Time Status Heart Healthy Diet [DIET] Diets 10/28/18 Lunch Active Objective - Vital Signs/Intake and Output Vital Signs (last 24 hours): Temp Pulse Resp BP Pulse Ox 98.4 F 85 20 89/45 L 95 10/28/18 16:00 10/28/18 19:00 10/28/18 19:00 10/28/18 19:00 10/28/18 19:00 Intake and Output: 10/28/18 10/29/18 18:59 06:59 Intake Total 860 0 Output Total 800 Balance 60 0 - Medications Medications: Current Medications Carvedilol (Coreg) 3.125 mg PO BID [facility] Last Admin: 10/28/18 17:14 Dose: 3.125 mg Ferric Sodium Gluconate Complex (Ferrlecit) 125 mg IVPB DAILY [facility] Stop: 11/04/18 10:01 Last Admin: 10/28/18 09:14 Dose: 125 mg Ceftriaxone Sodium 2 gm/ (Sodium Chloride) 100 mls @ 100 mls/hr IVPB DAILY [facility]; Protocol Last Admin: 10/28/18 09:16 Dose: 100 mls/hr Morphine Sulfate (Morphine) 2 mg IVP Q4 PRN PRN Reason: moderate to severe pain Last Admin: 10/27/18 12:15 Dose: 2 mg Pantoprazole Sodium (Protonix Ec Tab) 40 mg PO DAILY [facility] Last Admin: 10/28/18 10:03 Dose: 40 mg - Labs Labs: 10/28/18 06:00 10/28/18 06:00 PT 17.2 SECONDS (9.7-12.2) H 10/26/18 05:14 INR 1.6 10/26/18 05:14 APTT 28 SECONDS (21-34) 10/26/18 05:14
--- NOTE | 2018-10-28 23:28 | CP.PCM.PN ---
Subjective - Date & Time of Evaluation Date of Evaluation: 10/28/18 Time of Evaluation: 09:10 - Subjective Subjective: Patient seen and examined at bedside. Patient is POD #3 s/p pericardial window for pericardial effusion/ tamponade. This morning patient was tachycardiac at 130s. Patient reports minor pain around incision site that is well controlled w [facility] pain medicine. 10 CC drain in CARMEN drain. Patient denies headaches, vision changes, chest pain, SOB, cough, nausea, vomiting, abdominal pain, fevers, chills. CCU Objective - Vital Signs / Intake & Output Vital Signs (Last 4 hours): Vital Signs Temp Pulse Resp BP Pulse Ox 10/28/18 05:57 122 H 18 106/62 98 10/28/18 04:57 91 H 15 105/49 L 98 10/28/18 04:00 98.3 F 10/28/18 03:56 77 11 L 114/49 L 99 Intake and Output (Last 8hrs): Intake & Output 10/27/18 10/28/18 10/28/18 22:59 06:59 14:59 Intake Total 490 600 Output Total 320 1760 Balance 170 -1160 Intake: Oral 490 600 Output: Drainage 20 10 Anterior Chest 20 10 Urine 300 1750 Urine, Voided 300 1750 - Physical Exam Head: Positive for: Atraumatic, Normocephalic Pupils: Positive for: PERRL Extroacular Muscles: Positive for: EOMI Conjunctiva: Positive for: Normal Mouth: Positive for: Moist Mucous Membranes Neck: Positive for: Normal Range of Motion, JVD Respiratory/Chest: Positive for: Clear to Auscultation, Good Air Exchange. Negative for: Accessory Muscle Use Cardiovascular: Positive for: Murmurs, Normal S1, S2, Other (CARMEN drain, 100 cc overnight) Abdomen: Positive for: Normal Bowel Sounds. Negative for: Tenderness, Distention, Guarding Upper Extremity: Positive for: Normal Inspection. Negative for: Edema Lower Extremity: Positive for: Normal Inspection. Negative for: Edema Neurological: Positive for: GCS=15 Skin: Positive for: Warm, Dry, Rashes, Normal Color Psychiatric: Positive for: Alert, Oriented x 3 Objective - Vital Signs/Intake and Output Vital Signs (last 24 hours): Temp Pulse Resp BP Pulse Ox 98.5 F 72 13 104/73 96 10/28/18 20:00 10/28/18 22:00 10/28/18 22:00 10/28/18 22:01 10/28/18 22:00 Intake and Output: 10/28/18 10/29/18 18:59 06:59 Intake Total 860 240 Output Total 800 600 Balance 60 -360 - Medications Medications: Current Medications Carvedilol (Coreg) 3.125 mg PO BID [facility] Last Admin: 10/28/18 17:14 Dose: 3.125 mg Ferric Sodium Gluconate Complex (Ferrlecit) 125 mg IVPB DAILY [facility] Stop: 11/04/18 10:01 Last Admin: 10/28/18 09:14 Dose: 125 mg Ceftriaxone Sodium 2 gm/ (Sodium Chloride) 100 mls @ 100 mls/hr IVPB DAILY [facility]; Protocol Last Admin: 10/28/18 09:16 Dose: 100 mls/hr Morphine Sulfate (Morphine) 2 mg IVP Q4 PRN PRN Reason: moderate to severe pain Last Admin: 10/27/18 12:15 Dose: 2 mg Pantoprazole Sodium (Protonix Ec Tab) 40 mg PO DAILY [facility] Last Admin: 10/28/18 10:03 Dose: 40 mg - Labs Labs: 10/28/18 06:00 10/28/18 06:00 PT 17.2 SECONDS (9.7-12.2) H 10/26/18 05:14 INR 1.6 10/26/18 05:14 APTT 28 SECONDS (21-34) 10/26/18 05:14 Assessment and Plan - Assessment and Plan (Free Text) Assessment: 62 F w/ PMhx of Afib & pacemaker (on eliquis at home) currently admitted to ICU for monitoring for weakness/ GI bleed, had episode of afib w/ RVR, large pericardial effusion s/p POD # 2 for pericardial window w/ CARMEN drain. EDG deferred by GI 1) pericardial tamponade 2) afib RVR 3) anemia Plan: Neuro - A&O x3 Cardio - s/p pericardial window - continue to monitor - off cardizem drip - give digoxin if low BP and afib - biopsy - fluid negative for malignant cells Resp - vitals wnl - continue to monitor GI - protonix 40 mg IVP Q12 - clear liquid diet Heme - H/H stable s/p 2 units PRBCs on admission - WBC normalized - likely 2/2 to pericardial effusion - F/u [id number], lyme, rehumatoid factor, Quantiforon gold - Ceftriaxone 2g daily Renal - GENE resolved - likely 2/2 to pericardial effusion - trend AM labs - freely voiding PPx: - GI: protonix - DVT: VTE contraindicated due to GI bleed Critical Care time 40 minutes
[2018-10-29 06:08] LABS: BASO % 0.7 % (0.0-2.0); EOS # 0.2 K/uL (0.0-0.7); EOS % 3.7 % (0.0-4.0); HEMOGLOBIN 8.8 g/dL (11.0-16.0); LYMPH # 1.5 K/uL (1.0-4.3); LYMPH % 25.4 % (20.0-40.0); MEAN CELL VOLUME 82.9 fL (81.0-99.0); MEAN CORPUSCULAR HEMOGLOBIN 25.7 pg (27.0-31.0); MEAN PLATELET VOLUME 7.7 fL (7.2-11.7); MONO % 16.9 % (0.0-10.0); NEUT # 3.2 K/uL (1.8-7.0); NEUT % 53.3 % (50.0-75.0); RBC 3.42 Mil/uL (3.80-5.20); RED CELL DISTRIBUTION WIDTH 18.4 % (11.5-14.5); WHITE BLOOD COUNT 6.1 K/uL (4.8-10.8)
[2018-10-29 06:31] LABS: ALBUMIN 2.7 g/dL (3.5-5.0); ALT/SGPT 27 U/L (9-52); AST/SGOT 33 U/L (14-36); BLOOD UREA NITROGEN 8 mg/dL (7-17); CALCIUM 7.8 mg/dl (8.6-10.4); GFR NON-AFRICAN AMERICAN > 60
--- NOTE | 2018-10-29 07:32 | OP ---
PROCEDURE DATE: 10/25/2018 The operation was performed at [facility]. PREOPERATIVE DIAGNOSES: Cardiac tamponade, pericardial effusion. POSTOPERATIVE DIAGNOSES: Cardiac tamponade, pericardial effusion. PROCEDURE: Emergent subxiphoid pericardial window. SURGEON: Jimenez Shea MD FINISHER TAILOR APPRENTICE: Bahman Romero DO general surgery resident. TYPE OF ANESTHESIA: Local. ANESTHESIOLOGIST: As per operative record. INDICATIONS: As above. COMPLICATIONS: None. SPECIMEN: Pericardium and pericardial fluid. ESTIMATED BLOOD LOSS: Less than 25 mL. PROCEDURE IN DETAIL: The patient was identified by the operating room staff and placed supine on the operating room table. Bilateral Venodynes were in place. Adequate IV access and monitoring lines were inserted and were assured by the anesthesiologist. Prophylactic IV antibiotics were administered. Gentle IV sedation was given; however, we were very cautious given the patient's hemodynamic lability or hemodynamic instability despite an adequate blood pressure upon entering the OR. She had echocardiographic evidence of tamponade. The entire anterior chest wall from the level of the down to the umbilicus was prepped and draped in the usual sterile fashion. A vertical midline incision spanning the xiphoid process was anesthetized, measuring approximately 8 cm in length. It was carried down sharply. The xiphoid process was amputated. The underlying confluence of the diaphragm and pericardium were bluntly dissected free. The pericardium was entered with a puncture using a #15 blade. Approximately 500 to 600 mL of bloody fluid was evacuated. The patient's hemodynamics dramatically improved with stabilization of blood pressure as well as lowering of heart rate. There was no evidence of any pericardial studding. There were minimal adhesions. Both pericardium and fluid were sampled. The window was opened to the underlying peritoneal cavity so as to help with drainage and sutured together with a running Vicryl suture. The pericardial well was drained a 10-Cub[place] CARMEN placed inferiorly along the surface of the diaphragm through a separate stab wound. Hemostasis was achieved with the use of cautery. The incision was closed in layers. Additional local was given throughout the case. The Parish-Knutson drain was anchored with a monofilament suture and it was attached to bulb suction. Sterile dressings were applied. The patient was slowly recovered in the OR and then in the PACU. She remained hemodynamically stable and was then soon or after sent directly to the Intensive Care Unit. There was minimal output upon entering the ICU from her [facility]. All counts were correct x2. Jimenez Shea M.D.
--- NOTE | 2018-10-29 07:46 | CP.CCUPN ---
<Nitish Ratliff M - Last Filed: 10/29/18 16:15> CCU Subjective - Physician Review Subjective (Free Text): Critical care progress note for Dr. Charles Patient seen and examined at bedside. Patient is POD #4 s/p pericardial window for pericardial effusion/ tamponade. Patient overnight had vitals wnl. Pt offers no complaints, denies chest pain, SOB, nausea, vomiting, headaches, vision changes, abdominal pain. 10/29/18 14:46 10/29/18 16:15 CCU Objective - Vital Signs / Intake & Output Vital Signs (Last 4 hours): Vital Signs Temp Pulse Resp BP Pulse Ox 10/29/18 07:00 70 15 111/65 98 10/29/18 06:00 70 17 114/60 98 10/29/18 05:01 71 16 107/58 L 97 10/29/18 04:00 98.4 F 70 13 95/46 L 97 Intake and Output (Last 8hrs): Intake & Output 10/28/18 10/29/18 10/29/18 22:59 06:59 14:59 Intake Total 560 Output Total 900 200 0 Balance -340 -200 0 Weight 143 lb 4.807 oz Intake: Oral 560 Output: Urine 900 200 0 Urine, Voided 900 200 0 Other: # Voids Urine, Voided 1 1 - Physical Exam Head: Positive for: Atraumatic, Normocephalic Pupils: Positive for: PERRL Extroacular Muscles: Positive for: EOMI Conjunctiva: Positive for: Normal Mouth: Positive for: Moist Mucous Membranes Neck: Positive for: Normal Range of Motion, JVD Respiratory/Chest: Positive for: Clear to Auscultation, Good Air Exchange. Negative for: Accessory Muscle Use Cardiovascular: Positive for: Murmurs, Normal S1, S2, Other (CARMEN drain, 100 cc overnight) Abdomen: Positive for: Normal Bowel Sounds. Negative for: Tenderness, Distention, Guarding Upper Extremity: Positive for: Normal Inspection. Negative for: Edema Lower Extremity: Positive for: Normal Inspection. Negative for: Edema Neurological: Positive for: GCS=15 Skin: Positive for: Warm, Dry, Rashes, Normal Color Psychiatric: Positive for: Alert, Oriented x 3 - Medications Active Medications: Active Medications Generic Name Dose Route Start Last Admin Trade Name Freq PRN Reason Stop Dose Admin Carvedilol 3.125 mg 10/23/18 19:45 10/28/18 17:14 Coreg PO 3.125 mg BID [facility] Administration Ferric Sodium Gluconate Complex 125 mg 10/27/18 10:00 10/28/18 09:14 Ferrlecit IVPB 11/04/18 10:01 125 mg DAILY [facility] Administration Ceftriaxone Sodium 2 gm/ 100 mls @ 100 mls/hr 10/25/18 22:00 10/28/18 09:16 Sodium Chloride IVPB 100 mls/hr DAILY [facility] Administration Protocol Morphine Sulfate 2 mg 10/25/18 21:20 10/27/18 12:15 Morphine IVP 2 mg Q4 PRN Administration moderate to severe pain Pantoprazole Sodium 40 mg 10/28/18 10:00 10/28/18 10:03 Protonix Ec Tab PO 40 mg DAILY [facility] Administration - Patient Studies Lab Studies: Microbiology Studies 10/25/18 15:00 Blood Culture - Preliminary Blood NO GROWTH AFTER 3 DAYS 10/25/18 14:30 Blood Culture - Preliminary Blood NO GROWTH AFTER 3 DAYS 10/25/18 19:41 Gram Stain - Final Pericardial Fluid Body Fluid Culture - Preliminary NO GROWTH AFTER 3 DAYS Lab Studies 10/29/18 10/29/18 10/27/18 Range/Units 06:02 06:00 07:20 WBC 6.1 (4.8-10.8) K/uL RBC 3.42 L (3.80-5.20) Mil/uL Hgb 8.8 L (11.0-16.0) g/dL Hct 28.4 L (34.0-47.0) % MCV 82.9 (81.0-99.0) fL MCH 25.7 L (27.0-31.0) pg MCHC 31.0 L (33.0-37.0) g/dL RDW 18.4 H (11.5-14.5) % Plt Count 225 (130-400) K/uL MPV 7.7 (7.2-11.7) fL Neut % (Auto) 53.3 (50.0-75.0) % Lymph % (Auto) 25.4 (20.0-40.0) % Haines % (Auto) 16.9 H (0.0-10.0) % Eos % (Auto) 3.7 (0.0-4.0) % Baso % (Auto) 0.7 (0.0-2.0) % Neut # (Auto) 3.2 (1.8-7.0) K/uL Lymph # (Auto) 1.5 (1.0-4.3) K/uL Haines # (Auto) 1.0 H (0.0-0.8) K/uL Eos # (Auto) 0.2 (0.0-0.7) K/uL Baso # (Auto) 0.0 (0.0-0.2) K/uL Sodium 135 (132-148) mmol/L Potassium 3.6 (3.6-5.2) mmol/L Chloride 102 (98-107) mmol/L Carbon Dioxide 28 (22-30) mmol/L Anion Gap 9 L (10-20) BUN 8 (7-17) mg/dL Creatinine 0.5 L (0.7-1.2) mg/dL Est GFR ( Amer) > 60 Est GFR (Non-Af Amer) > 60 Random Glucose 101 (65-105) mg/dL Calcium 7.8 L (8.6-10.4) mg/dl Phosphorus 2.9 (2.5-4.5) mg/dL Magnesium 1.8 (1.6-2.3) mg/dL Total Bilirubin 0.8 (0.2-1.3) mg/dL AST 33 (14-36) U/L ALT 27 (9-52) U/L Alkaline Phosphatase 74 (38-126) U/L Total Protein 5.5 L (6.3-8.3) g/dL Albumin 2.7 L (3.5-5.0) g/dL Globulin 2.8 (2.2-3.9) gm/dL Albumin/Globulin Ratio 1.0 (1.0-2.1) IZABELLA Screen Negative (Negative) CMV IgG Ab >10.00 H U/mL CMV IgM Ab 34.40 H AU/mL Laboratory Results - last 24 hr 10/27/18 10/29/18 10/29/18 07:20 06:00 06:02 WBC 6.1 RBC 3.42 L Hgb 8.8 L Hct 28.4 L MCV 82.9 MCH 25.7 L MCHC 31.0 L RDW 18.4 H Plt Count 225 MPV 7.7 Neut % (Auto) 53.3 Lymph % (Auto) 25.4 Haines % (Auto) 16.9 H Eos % (Auto) 3.7 Baso % (Auto) 0.7 Neut # (Auto) 3.2 Lymph # (Auto) 1.5 Haines # (Auto) 1.0 H Eos # (Auto) 0.2 Baso # (Auto) 0.0 Sodium 135 Potassium 3.6 Chloride 102 Carbon Dioxide 28 Anion Gap 9 L BUN 8 Creatinine 0.5 L Est GFR ( Amer) > 60 Est GFR (Non-Af Amer) > 60 Random Glucose 101 Calcium 7.8 L Phosphorus 2.9 Magnesium 1.8 Total Bilirubin 0.8 AST 33 ALT 27 Alkaline Phosphatase 74 Total Protein 5.5 L Albumin 2.7 L Globulin 2.8 Albumin/Globulin Ratio 1.0 IZABELLA Screen Negative CMV IgG Ab >10.00 H CMV IgM Ab 34.40 H Review of Systems - Constitutional Constitutional: absent: Fever, Chills, Sweats - EENT Eyes: UNREMARKABLE. absent: Blurred Vision Ears: UNREMARKABLE Nose/Mouth/Throat: UNREMARKABLE. absent: Nasal Congestion, Nasal Trauma - Cardiovascular Cardiovascular: UNREMARKABLE. absent: Chest Pain, Chest Pain at Rest, Dyspnea - Respiratory Respiratory: UNREMARKABLE. absent: Cough, Dyspnea - Gastrointestinal Gastrointestinal: UNREMARKABLE. absent: Belching, Diarrhea - Musculoskeletal Musculoskeletal: UNREMARKABLE. absent: Muscle Weakness, Stiffness - Integumentary Integumentary: UNREMARKABLE - Neurological Neurological: UNREMARKABLE. absent: Dizziness, Headaches - Psychiatric Psychiatric: UNREMARKABLE. absent: Confusion, Depression - Endocrine Endocrine: UNREMARKABLE - Hematologic/Lymphatic Hematologic: UNREMARKABLE Critical Care Progress Note - Prophylaxis GI Prophylaxis GI: Pepsid - Prophylaxis DVT Prophylaxis DVT: Not Indicated - Nutrition Nutrition: Nutrition Category Date Time Status Heart Healthy Diet [DIET] Diets 10/28/18 Lunch Active Assessment/Plan - Assessment and Plan (Free Text) Assessment: 62 F w/ PMhx of Afib & pacemaker (on eliquis at home) currently admitted to ICU for monitoring for weakness/ GI bleed, had episode of afib w/ RVR, large pericardial effusion s/p POD # 4 for pericardial window w/ CARMEN drain. Co-reg restarted, HR controlled. EGD planned for Thursday per GI. Patient stable for tele. 1) pericardial tamponade 2) afib RVR 3) anemia Plan: Neuro - A&O x3 Cardio - s/p pericardial window - continue to monitor - off cardizem drip - biopsy - fluid negative for malignant cells Resp - vitals wnl - continue to monitor GI - protonix 40 mg PO daily - heart healthy diet - per GI - EGD wednesday 11/01 Heme - H/H stable s/p 2 units PRBCs on admission - WBC normalized - likely 2/2 to pericardial effusion - F/u IZABELLA, lyme, rehumatoid factor, Quantiforon gold - Ceftriaxone 2g daily Renal - GENE resolved - likely 2/2 to pericardial effusion - trend AM labs - freely voiding PPx: - GI: protonix - DVT: VTE contraindicated due to GI bleed <Parag Charles - Last Filed: 10/30/18 09:08> CCU Objective - Vital Signs / Intake & Output Vital Signs (Last 4 hours): Vital Signs Temp Pulse Resp BP Pulse Ox 10/30/18 08:00 98.4 F 69 18 92/45 L 97 10/30/18 05:18 70 18 101/56 L 97 Intake and Output (Last 8hrs): Intake & Output 10/29/18 10/30/18 10/30/18 22:59 06:59 14:59 Intake Total 200 500 Output Total 1200 Balance 200 -700 Intake: Intake, IV Amount 0 0 Left Upper arm 0 0 Oral 200 500 Output: Urine 1200 Urine, Voided 1200 Other: # Voids Urine, Voided 0 # Bowel Movements 0 0 - Medications Active Medications: Active Medications Generic Name Dose Route Start Last Admin Trade Name Romanq PRN Reason Stop Dose Admin Carvedilol 3.125 mg 10/23/18 19:45 10/29/18 17:19 Coreg PO 3.125 mg BID [facility] Administration Ferric Sodium Gluconate Complex 125 mg 10/27/18 10:00 10/29/18 09:24 Ferrlecit IVPB 11/04/18 10:01 125 mg DAILY [facility] Administration Ceftriaxone Sodium 2 gm/ 100 mls @ 100 mls/hr 10/25/18 22:00 10/29/18 10:22 Sodium Chloride IVPB 100 mls/hr DAILY [facility] Administration Protocol Morphine Sulfate 2 mg 10/25/18 21:20 10/27/18 12:15 Morphine IVP 2 mg Q4 PRN Administration moderate to severe pain Pantoprazole Sodium 40 mg 10/28/18 10:00 10/29/18 09:24 Protonix Ec Tab PO 40 mg DAILY [facility] Administration - Patient Studies Lab Studies: Microbiology Studies 10/25/18 15:00 Blood Culture - Preliminary Blood NO GROWTH AFTER 4 DAYS 10/25/18 14:30 Blood Culture - Preliminary Blood NO GROWTH AFTER 4 DAYS 10/25/18 19:41 Gram Stain - Final Pericardial Fluid Body Fluid Culture - Final No growth. Lab Studies 10/30/18 10/30/18 10/29/18 Range/Units 06:19 06:17 08:37 WBC 7.0 (4.8-10.8) K/uL RBC 3.71 L (3.80-5.20) Mil/uL Hgb 9.3 L (11.0-16.0) g/dL Hct 30.6 L (34.0-47.0) % MCV 82.5 (81.0-99.0) fL MCH 25.1 L (27.0-31.0) pg MCHC 30.4 L (33.0-37.0) g/dL RDW 18.8 H (11.5-14.5) % Plt Count 270 (130-400) K/uL MPV 7.8 (7.2-11.7) fL Neut % (Auto) 55.2 (50.0-75.0) % Lymph % (Auto) 25.5 (20.0-40.0) % Haines % (Auto) 14.9 H (0.0-10.0) % Eos % (Auto) 3.6 (0.0-4.0) % Baso % (Auto) 0.8 (0.0-2.0) % Neut # (Auto) 3.9 (1.8-7.0) K/uL Lymph # (Auto) 1.8 (1.0-4.3) K/uL Haines # (Auto) 1.0 H (0.0-0.8) K/uL Eos # (Auto) 0.3 (0.0-0.7) K/uL Baso # (Auto) 0.1 (0.0-0.2) K/uL Sodium 138 (132-148) mmol/L Potassium 3.6 (3.6-5.2) mmol/L Chloride 102 (98-107) mmol/L Carbon Dioxide 29 (22-30) mmol/L Anion Gap 10 (10-20) BUN 10 (7-17) mg/dL Creatinine 0.5 L (0.7-1.2) mg/dL Est GFR ( Amer) > 60 Est GFR (Non-Af Amer) > 60 Random Glucose 92 (65-105) mg/dL Calcium 8.4 L (8.6-10.4) mg/dl Phosphorus 3.7 (2.5-4.5) mg/dL Magnesium 1.5 L (1.6-2.3) mg/dL Total Bilirubin 0.7 (0.2-1.3) mg/dL AST 30 (14-36) U/L ALT 22 (9-52) U/L Alkaline Phosphatase 91 (38-126) U/L Total Protein 5.8 L (6.3-8.3) g/dL Albumin 2.8 L (3.5-5.0) g/dL Globulin 3.0 (2.2-3.9) gm/dL Albumin/Globulin Ratio 0.9 L (1.0-2.1) RPR Nonreactive (NONREACTIVE) HSV Source Description HSV I DNA PCR (Not Detected) HSV II DNA PCR (Not Detected) 10/27/18 Range/Units 07:20 WBC (4.8-10.8) K/uL RBC (3.80-5.20) Mil/uL Hgb (11.0-16.0) g/dL Hct (34.0-47.0) % MCV (81.0-99.0) fL MCH (27.0-31.0) pg MCHC (33.0-37.0) g/dL RDW (11.5-14.5) % Plt Count (130-400) K/uL MPV (7.2-11.7) fL Neut % (Auto) (50.0-75.0) % Lymph % (Auto) (20.0-40.0) % Haines % (Auto) (0.0-10.0) % Eos % (Auto) (0.0-4.0) % Baso % (Auto) (0.0-2.0) % Neut # (Auto) (1.8-7.0) K/uL Lymph # (Auto) (1.0-4.3) K/uL Haines # (Auto) (0.0-0.8) K/uL Eos # (Auto) (0.0-0.7) K/uL Baso # (Auto) (0.0-0.2) K/uL Sodium (132-148) mmol/L Potassium (3.6-5.2) mmol/L Chloride (98-107) mmol/L Carbon Dioxide (22-30) mmol/L Anion Gap (10-20) BUN (7-17) mg/dL Creatinine (0.7-1.2) mg/dL Est GFR ( Amer) Est GFR (Non-Af Amer) Random Glucose (65-105) mg/dL Calcium (8.6-10.4) mg/dl Phosphorus (2.5-4.5) mg/dL Magnesium (1.6-2.3) mg/dL Total Bilirubin (0.2-1.3) mg/dL AST (14-36) U/L ALT (9-52) U/L Alkaline Phosphatase (38-126) U/L Total Protein (6.3-8.3) g/dL Albumin (3.5-5.0) g/dL Globulin (2.2-3.9) gm/dL Albumin/Globulin Ratio (1.0-2.1) RPR (NONREACTIVE) HSV Source Description Serum HSV I DNA PCR Not detected (Not Detected) HSV II DNA PCR Not detected (Not Detected) Laboratory Results - last 24 hr 10/27/18 10/29/18 10/30/18 07:20 08:37 06:17 WBC RBC Hgb Hct MCV MCH MCHC RDW Plt Count MPV Neut % (Auto) Lymph % (Auto) Haines % (Auto) Eos % (Auto) Baso % (Auto) Neut # (Auto) Lymph # (Auto) Haines # (Auto) Eos # (Auto) Baso # (Auto) Sodium 138 Potassium 3.6 Chloride 102 Carbon Dioxide 29 Anion Gap 10 BUN 10 Creatinine 0.5 L Est GFR ( Amer) > 60 Est GFR (Non-Af Amer) > 60 Random Glucose 92 Calcium 8.4 L Phosphorus 3.7 Magnesium 1.5 L Total Bilirubin 0.7 AST 30 ALT 22 Alkaline Phosphatase 91 Total Protein 5.8 L Albumin 2.8 L Globulin 3.0 Albumin/Globulin Ratio 0.9 L RPR Nonreactive HSV Source Description Serum HSV I DNA PCR Not detected HSV II DNA PCR Not detected 10/30/18 06:19 WBC 7.0 RBC 3.71 L Hgb 9.3 L Hct 30.6 L MCV 82.5 MCH 25.1 L MCHC 30.4 L RDW 18.8 H Plt Count 270 MPV 7.8 Neut % (Auto) 55.2 Lymph % (Auto) 25.5 Haines % (Auto) 14.9 H Eos % (Auto) 3.6 Baso % (Auto) 0.8 Neut # (Auto) 3.9 Lymph # (Auto) 1.8 Haines # (Auto) 1.0 H Eos # (Auto) 0.3 Baso # (Auto) 0.1 Sodium Potassium Chloride Carbon Dioxide Anion Gap BUN Creatinine Est GFR ( Amer) Est GFR (Non-Af Amer) Random Glucose Calcium Phosphorus Magnesium Total Bilirubin AST ALT Alkaline Phosphatase Total Protein Albumin Globulin Albumin/Globulin Ratio RPR HSV Source Description HSV I DNA PCR HSV II DNA PCR Critical Care Progress Note - Nutrition Nutrition: Nutrition Category Date Time Status Heart Healthy Diet [DIET] Diets 10/28/18 Lunch Active NPO Diet [DIET] Diets 11/01/18 Breakfast Active Attending/Attestation - Attestation I have personally seen and examined this patient.: Yes I have fully participated in the care of the patient.: Yes I have reviewed all pertinent clinical information: Yes Notes (Text): 10/29/18 The Patient was seen and examined at the bedside, Medical records reviewed, and management issues were discussed and formulated with the house staff. I have reviewed all the relevant clinical, laboratory, hemodynamic, radiographic data and medications Events reviewed Pain issues, skin care, head of the bed elevation, glycemic control were addressed. Agree with above resident's assessment and treatment plans of care as transcribed in Dr. Ratliff's note.
[2018-10-29 07:59] LABS: 23 KD (IGG) BAND Nonreactive
[2018-10-29 08:50] LABS: INR 1.5; PROTHROMBIN TIME 16.3 SECONDS (9.7-12.2)
[2018-10-29] MEDS: Ferric Sodium Gluconat Complex 62.5 mg/5 ml Vial IVPB SCH (09:24)
[2018-10-29] MEDS: Pantoprazole 40 mg EC Tab PO SCH (09:24)
[2018-10-29] MEDS: cefTRIAXone 2 GM in Sodium Chloride 0.9% 100 ML IVPB SCH (10:22)
--- NOTE | 2018-10-29 11:18 | CP.PCM.PN ---
Subjective - Date & Time of Evaluation Date of Evaluation: 10/29/18 Time of Evaluation: 11:16 - Subjective Subjective: Feels better Denies pain Hemodynamics improving remains anemic without overt bleeding Objective - Vital Signs/Intake and Output Vital Signs (last 24 hours): Temp Pulse Resp BP Pulse Ox 98.8 F 84 19 99/45 L 93 L 10/29/18 08:00 10/29/18 11:00 10/29/18 11:00 10/29/18 11:00 10/29/18 11:00 Intake and Output: 10/29/18 10/29/18 06:59 18:59 Intake Total 240 600 Output Total 800 650 Balance -560 -50 - Medications Medications: Current Medications Carvedilol (Coreg) 3.125 mg PO BID [facility] Last Admin: 10/29/18 09:23 Dose: 3.125 mg Ferric Sodium Gluconate Complex (Ferrlecit) 125 mg IVPB DAILY [facility] Stop: 11/04/18 10:01 Last Admin: 10/29/18 09:24 Dose: 125 mg Ceftriaxone Sodium 2 gm/ (Sodium Chloride) 100 mls @ 100 mls/hr IVPB DAILY [facility]; Protocol Last Admin: 10/29/18 10:22 Dose: 100 mls/hr Morphine Sulfate (Morphine) 2 mg IVP Q4 PRN PRN Reason: moderate to severe pain Last Admin: 10/27/18 12:15 Dose: 2 mg Pantoprazole Sodium (Protonix Ec Tab) 40 mg PO DAILY [facility] Last Admin: 10/29/18 09:24 Dose: 40 mg - Labs Labs: 10/29/18 06:02 10/29/18 06:00 PT 16.3 SECONDS (9.7-12.2) H 10/29/18 08:37 INR 1.5 10/29/18 08:37 APTT 27 SECONDS (21-34) 10/29/18 08:37 - Constitutional Appears: Well - Head Exam Head Exam: NORMOCEPHALIC - Cardiovascular Exam Cardiovascular Exam: REGULAR RHYTHM - GI/Abdominal Exam GI & Abdominal Exam: Soft. absent: Tenderness Assessment and Plan (1) Anemia Assessment & Plan: undetermined cause. OB positive stool Tentatively scheduled for EGD Thursday Status: Acute (2) Rapid atrial fibrillation Assessment & Plan: Pericadial window performed for tamponade/effusion Now hemodynamics are stabilizing Status: Acute
--- NOTE | 2018-10-29 17:46 | CP.PCM.PN ---
Subjective - Date & Time of Evaluation Date of Evaluation: 10/29/18 Time of Evaluation: 17:43 - Subjective Subjective: INFECTIOUS DISESE ICU PROGRESS NOTES MARK ANTHONY DOLAN MD, FACP 10/29/2018 CHART REVIEWED PT EXAMINED CASE DISCUSSED CLINICALLY LOOKS BETTER WAS ABLE TO AMBULATE A FEW FEET AND ABLE TO EAT TODAY LABS NOT DIAGNOSTIC YET Patient is POD #4 s/p pericardial window for pericardial effusion/ tamponade. Patient overnight had vitals wnl. Pt offers no complaints, denies chest pain, SOB, nausea, vomiting, headaches, vision changes, abdominal pain. CCU Objective - Vital Signs / Intake & Output Vital Signs (Last 4 hours): Vital Signs Temp Pulse Resp BP Pulse Ox 10/29/18 07:00 70 15 111/65 98 10/29/18 06:00 70 17 114/60 98 10/29/18 05:01 71 16 107/58 L 97 10/29/18 04:00 98.4 F 70 13 95/46 L 97 Intake and Output (Last 8hrs): Intake & Output 10/28/18 10/29/18 10/29/18 22:59 06:59 14:59 Intake Total 560 Output Total 900 200 0 Balance -340 -200 0 Weight 143 lb 4.807 oz Intake: Oral 560 Output: Urine 900 200 0 Urine, Voided 900 200 0 Other: # Voids Urine, Voided 1 1 - Physical Exam Head: Positive for: Atraumatic, Normocephalic Pupils: Positive for: PERRL Extroacular Muscles: Positive for: EOMI Conjunctiva: Positive for: Normal Mouth: Positive for: Moist Mucous Membranes Neck: Positive for: Normal Range of Motion, JVD Respiratory/Chest: Positive for: Clear to Auscultation, Good Air Exchange. Negative for: Accessory Muscle Use Cardiovascular: Positive for: Murmurs, Normal S1, S2, Other (CARMEN drain, 100 cc overnight) Abdomen: Positive for: Normal Bowel Sounds. Negative for: Tenderness, Distention, Guarding Upper Extremity: Positive for: Normal Inspection. Negative for: Edema Lower Extremity: Positive for: Normal Inspection. Negative for: Edema Neurological: Positive for: GCS=15 Skin: Positive for: Warm, Dry, Rashes, Normal Color Psychiatric: Positive for: Alert, Oriented x 3 - Medications Active Medications: Active Medications Generic Name Dose Route Start Last Admin Trade Name Freq PRN Reason Stop Dose Admin Carvedilol 3.125 mg 10/23/18 19:45 10/28/18 17:14 Coreg PO 3.125 mg BID [facility] Administration Ferric Sodium Gluconate Complex 125 mg 10/27/18 10:00 10/28/18 09:14 Ferrlecit IVPB 11/04/18 10:01 125 mg DAILY [facility] Administration Ceftriaxone Sodium 2 gm/ 100 mls @ 100 mls/hr 10/25/18 22:00 10/28/18 09:16 Sodium Chloride IVPB 100 mls/hr DAILY [facility] Administration Protocol Morphine Sulfate 2 mg 10/25/18 21:20 10/27/18 12:15 Morphine IVP 2 mg Q4 PRN Administration moderate to severe pain Pantoprazole Sodium 40 mg 10/28/18 10:00 10/28/18 10:03 Protonix Ec Tab PO 40 mg DAILY [facility] Administration - Patient Studies Lab Studies: Microbiology Studies 10/25/18 15:00 Blood Culture - Preliminary Blood NO GROWTH AFTER 3 DAYS 10/25/18 14:30 Blood Culture - Preliminary Blood NO GROWTH AFTER 3 DAYS 10/25/18 19:41 Gram Stain - Final Pericardial Fluid Body Fluid Culture - Preliminary NO GROWTH AFTER 3 DAYS Lab Studies 10/29/18 10/29/18 10/27/18 Range/Units 06:02 06:00 07:20 WBC 6.1 (4.8-10.8) K/uL RBC 3.42 L (3.80-5.20) Mil/uL Hgb 8.8 L (11.0-16.0) g/dL Hct 28.4 L (34.0-47.0) % MCV 82.9 (81.0-99.0) fL MCH 25.7 L (27.0-31.0) pg MCHC 31.0 L (33.0-37.0) g/dL RDW 18.4 H (11.5-14.5) % Plt Count 225 (130-400) K/uL MPV 7.7 (7.2-11.7) fL Neut % (Auto) 53.3 (50.0-75.0) % Lymph % (Auto) 25.4 (20.0-40.0) % Ceiba % (Auto) 16.9 H (0.0-10.0) % Eos % (Auto) 3.7 (0.0-4.0) % Baso % (Auto) 0.7 (0.0-2.0) % Neut # (Auto) 3.2 (1.8-7.0) K/uL Lymph # (Auto) 1.5 (1.0-4.3) K/uL Ceiba # (Auto) 1.0 H (0.0-0.8) K/uL Eos # (Auto) 0.2 (0.0-0.7) K/uL Baso # (Auto) 0.0 (0.0-0.2) K/uL Sodium 135 (132-148) mmol/L Potassium 3.6 (3.6-5.2) mmol/L Chloride 102 (98-107) mmol/L Carbon Dioxide 28 (22-30) mmol/L Anion Gap 9 L (10-20) BUN 8 (7-17) mg/dL Creatinine 0.5 L (0.7-1.2) mg/dL Est GFR ( Amer) > 60 Est GFR (Non-Af Amer) > 60 Random Glucose 101 (65-105) mg/dL Calcium 7.8 L (8.6-10.4) mg/dl Phosphorus 2.9 (2.5-4.5) mg/dL Magnesium 1.8 (1.6-2.3) mg/dL Total Bilirubin 0.8 (0.2-1.3) mg/dL AST 33 (14-36) U/L ALT 27 (9-52) U/L Alkaline Phosphatase 74 (38-126) U/L Total Protein 5.5 L (6.3-8.3) g/dL Albumin 2.7 L (3.5-5.0) g/dL Globulin 2.8 (2.2-3.9) gm/dL Albumin/Globulin Ratio 1.0 (1.0-2.1) IZABELLA Screen Negative (Negative) CMV IgG Ab >10.00 H U/mL CMV IgM Ab 34.40 H AU/mL Laboratory Results - last 24 hr 10/27/18 10/29/18 10/29/18 07:20 06:00 06:02 WBC 6.1 RBC 3.42 L Hgb 8.8 L Hct 28.4 L MCV 82.9 MCH 25.7 L MCHC 31.0 L RDW 18.4 H Plt Count 225 MPV 7.7 Neut % (Auto) 53.3 Lymph % (Auto) 25.4 Ceiba % (Auto) 16.9 H Eos % (Auto) 3.7 Baso % (Auto) 0.7 Neut # (Auto) 3.2 Lymph # (Auto) 1.5 Ceiba # (Auto) 1.0 H Eos # (Auto) 0.2 Baso # (Auto) 0.0 Sodium 135 Potassium 3.6 Chloride 102 Carbon Dioxide 28 Anion Gap 9 L BUN 8 Creatinine 0.5 L Est GFR ( Amer) > 60 Est GFR (Non-Af Amer) > 60 Random Glucose 101 Calcium 7.8 L Phosphorus 2.9 Magnesium 1.8 Total Bilirubin 0.8 AST 33 ALT 27 Alkaline Phosphatase 74 Total Protein 5.5 L Albumin 2.7 L Globulin 2.8 Albumin/Globulin Ratio 1.0 IZABELLA Screen Negative CMV IgG Ab >10.00 H CMV IgM Ab 34.40 H Review of Systems - Constitutional Constitutional: absent: Fever, Chills, Sweats - EENT Eyes: UNREMARKABLE. absent: Blurred Vision Ears: UNREMARKABLE Nose/Mouth/Throat: UNREMARKABLE. absent: Nasal Congestion, Nasal Trauma - Cardiovascular Cardiovascular: UNREMARKABLE. absent: Chest Pain, Chest Pain at Rest, Dyspnea - Respiratory Respiratory: UNREMARKABLE. absent: Cough, Dyspnea - Gastrointestinal Gastrointestinal: UNREMARKABLE. absent: Belching, Diarrhea - Musculoskeletal Musculoskeletal: UNREMARKABLE. absent: Muscle Weakness, Stiffness - Integumentary Integumentary: UNREMARKABLE - Neurological Neurological: UNREMARKABLE. absent: Dizziness, Headaches - Psychiatric Psychiatric: UNREMARKABLE. absent: Confusion, Depression - Endocrine Endocrine: UNREMARKABLE - Hematologic/Lymphatic Hematologic: UNREMARKABLE Critical Care Progress Note - Prophylaxis GI Prophylaxis GI: Pepsid - Prophylaxis DVT Prophylaxis DVT: Not Indicated - Nutrition Nutrition: Nutrition Category Date Time Status Heart Healthy Diet [DIET] Diets 10/28/18 Lunch Active Assessment/Plan - Assessment and Plan (Free Text) Assessment: 62 F w/ PMhx of Afib & pacemaker (on eliquis at home) currently admitted to ICU for monitoring for weakness/ GI bleed, had episode of afib w/ RVR, large pericardial effusion s/p POD # 4 for pericardial window w/ CARMEN drain. Co-reg r estarted, HR controlled. EGD planned for Thursday per GI. Patient stable for tele. 1) pericardial tamponade 2) afib RVR 3) anemia Plan: Neuro - A&O x3 Cardio - s/p pericardial window - continue to monitor - off cardizem drip - biopsy - fluid negative for malignant cells Resp - vitals wnl - continue to monitor GI - protonix 40 mg PO daily - heart healthy diet - per GI - EGD wednesday 11/01 Heme - H/H stable s/p 2 units PRBCs on admission - WBC normalized - likely 2/2 to pericardial effusion - F/u IZABELLA, lyme, rehumatoid factor, Quantiforon gold - Ceftriaxone 2g daily Renal - GENE resolved - likely 2/2 to pericardial effusion - trend AM labs - freely voiding PPx: - GI: protonix - DVT: VTE contraindicated due to GI bleed Objective - Vital Signs/Intake and Output Vital Signs (last 24 hours): Temp Pulse Resp BP Pulse Ox 99.4 F 82 21 98/44 L 96 10/29/18 16:00 10/29/18 16:00 10/29/18 16:00 10/29/18 16:00 10/29/18 16:00 Intake and Output: 10/29/18 10/29/18 06:59 18:59 Intake Total 240 950 Output Total 800 650 Balance -560 300 - Medications Medications: Current Medications Carvedilol (Coreg) 3.125 mg PO BID [facility] Last Admin: 10/29/18 17:19 Dose: 3.125 mg Ferric Sodium Gluconate Complex (Ferrlecit) 125 mg IVPB DAILY [facility] Stop: 11/04/18 10:01 Last Admin: 10/29/18 09:24 Dose: 125 mg Ceftriaxone Sodium 2 gm/ (Sodium Chloride) 100 mls @ 100 mls/hr IVPB DAILY [facility]; Protocol Last Admin: 10/29/18 10:22 Dose: 100 mls/hr Morphine Sulfate (Morphine) 2 mg IVP Q4 PRN PRN Reason: moderate to severe pain Last Admin: 10/27/18 12:15 Dose: 2 mg Pantoprazole Sodium (Protonix Ec Tab) 40 mg PO DAILY [facility] Last Admin: 10/29/18 09:24 Dose: 40 mg - Labs Labs: 10/29/18 06:02 10/29/18 06:00 PT 16.3 SECONDS (9.7-12.2) H 10/29/18 08:37 INR 1.5 10/29/18 08:37 APTT 27 SECONDS (21-34) 10/29/18 08:37
--- NOTE | 2018-10-29 18:35 | CP.PCM.PN ---
Subjective - Date & Time of Evaluation Date of Evaluation: 10/29/18 Time of Evaluation: 18:34 - Subjective Subjective: Importing, in good spirit. h/h stable Objective - Vital Signs/Intake and Output Vital Signs (last 24 hours): Temp Pulse Resp BP Pulse Ox 99.4 F 82 21 98/44 L 96 10/29/18 16:00 10/29/18 16:00 10/29/18 16:00 10/29/18 16:00 10/29/18 16:00 Intake and Output: 10/29/18 10/29/18 11:59 23:59 Intake Total 600 350 Output Total 850 Balance -250 350 - Medications Medications: Current Medications Carvedilol (Coreg) 3.125 mg PO BID [facility] Last Admin: 10/29/18 17:19 Dose: 3.125 mg Ferric Sodium Gluconate Complex (Ferrlecit) 125 mg IVPB DAILY [facility] Stop: 11/04/18 10:01 Last Admin: 10/29/18 09:24 Dose: 125 mg Ceftriaxone Sodium 2 gm/ (Sodium Chloride) 100 mls @ 100 mls/hr IVPB DAILY [facility]; Protocol Last Admin: 10/29/18 10:22 Dose: 100 mls/hr Morphine Sulfate (Morphine) 2 mg IVP Q4 PRN PRN Reason: moderate to severe pain Last Admin: 10/27/18 12:15 Dose: 2 mg Pantoprazole Sodium (Protonix Ec Tab) 40 mg PO DAILY [facility] Last Admin: 10/29/18 09:24 Dose: 40 mg - Labs Labs: 10/29/18 06:02 10/29/18 06:00 PT 16.3 SECONDS (9.7-12.2) H 10/29/18 08:37 INR 1.5 10/29/18 08:37 APTT 27 SECONDS (21-34) 10/29/18 08:37 - Constitutional Appears: Non-toxic - Head Exam Head Exam: ATRAUMATIC, NORMAL INSPECTION, NORMOCEPHALIC - Eye Exam Eye Exam: Normal appearance - ENT Exam ENT Exam: Normal Exam - Neck Exam Neck Exam: Full ROM - Respiratory Exam Respiratory Exam: Clear to Ausculation Bilateral - Cardiovascular Exam Cardiovascular Exam: REGULAR RHYTHM, +S1, +S2 - GI/Abdominal Exam GI & Abdominal Exam: Soft, Normal Bowel Sounds - Neurological Exam Neurological Exam: Alert, Awake, CN II-XII Intact, Oriented x3 - Psychiatric Exam Psychiatric exam: Normal Mood - Skin Skin Exam: Pallor Assessment and Plan (1) Rapid atrial fibrillation Status: Acute (2) Symptomatic anemia Status: Acute (3) Atrial fibrillation Status: Acute (4) Hypertensive cardiovascular disease Status: Acute (5) Wide-complex tachycardia Status: Acute (6) Hypertension Status: Chronic (7) Pericardial effusion Status: Acute (8) Cardiac tamponade Status: Acute - Assessment and Plan (Free Text) Plan: Continue present rx.
[2018-10-29 20:02] LABS: SPECIMEN SOURCE Serum
[2018-10-30 06:30] LABS: BASO # 0.1 K/uL (0.0-0.2); BASO % 0.8 % (0.0-2.0); EOS # 0.3 K/uL (0.0-0.7); EOS % 3.6 % (0.0-4.0); HEMOGLOBIN 9.3 g/dL (11.0-16.0); LYMPH # 1.8 K/uL (1.0-4.3); LYMPH % 25.5 % (20.0-40.0); MEAN CELL VOLUME 82.5 fL (81.0-99.0); MEAN CORPUSCULAR HEMOGLOBIN 25.1 pg (27.0-31.0); MEAN CORPUSCULAR HGB CONC 30.4 g/dL (33.0-37.0); MEAN PLATELET VOLUME 7.8 fL (7.2-11.7); MONO % 14.9 % (0.0-10.0); NEUT # 3.9 K/uL (1.8-7.0); NEUT % 55.2 % (50.0-75.0); NRBC % 0.1 % (0.0-2.0); RBC 3.71 Mil/uL (3.80-5.20); RED CELL DISTRIBUTION WIDTH 18.8 % (11.5-14.5)
[2018-10-30 06:38] LABS: ALB/GLOB RATIO 0.9 (1.0-2.1); ALBUMIN 2.8 g/dL (3.5-5.0); ALT/SGPT 22 U/L (9-52); AST/SGOT 30 U/L (14-36); BLOOD UREA NITROGEN 10 mg/dL (7-17); CALCIUM 8.4 mg/dl (8.6-10.4); GFR NON-AFRICAN AMERICAN > 60
--- NOTE | 2018-10-30 08:31 | CP.PCM.PN ---
Subjective - Date & Time of Evaluation Date of Evaluation: 10/29/18 Time of Evaluation: 19:05 - Subjective Subjective: Patient seen and examined at bedside. S/P removal of pericardial tube Denies chest pain and dyspnea Hemodynamics improved 'Hgb stable Physical Examination - Physical Exam Head: Positive for: Atraumatic, Normocephalic Pupils: Positive for: PERRL Extroacular Muscles: Positive for: EOMI Conjunctiva: Positive for: Normal Mouth: Positive for: Moist Mucous Membranes Neck: Positive for: Normal Range of Motion, JVD Respiratory/Chest: Positive for: Clear to Auscultation, Good Air Exchange. Negative for: Accessory Muscle Use Cardiovascular: Positive for: Murmurs, Normal S1, S2, Other (CARMEN drain, 100 cc overnight) Abdomen: Positive for: Normal Bowel Sounds. Negative for: Tenderness, Distention, Guarding Upper Extremity: Positive for: Normal Inspection. Negative for: Edema Lower Extremity: Positive for: Normal Inspection. Negative for: Edema Neurological: Positive for: GCS=15 Skin: Positive for: Warm, Dry, Rashes, Normal Color Psychiatric: Positive for: Alert, Oriented x 3 Assessment and Plan - Assessment and Plan (Free Text) Assessment: 62 F w/ PMhx of Afib & pacemaker (on eliquis at home) currently admitted to ICU for monitoring for weakness/ GI bleed, had episode of afib w/ RVR, large pericardial effusion s/p POD # 2 for pericardial window w/ CARMEN drain. EDG deferred by GI 1) pericardial tamponade 2) afib RVR 3) anemia Plan: Neuro - A&O x3 Cardio - s/p pericardial tamponade-Resolved - continue to monitor - biopsy - fluid negative for malignant cells Resp - vitals wnl - continue to monitor GI - protonix 40 mg IVP Q12 - clear liquid diet Heme - H/H stable - WBC normalized - likely 2/2 to pericardial effusion - F/u IZABELLA, lyme, rehumatoid factor, Quantiforon gold - Ceftriaxone 2g daily Renal - GENE resolved - likely 2/2 to pericardial effusion - trend AM labs - freely voiding PPx: - GI: protonix - DVT: VTE contraindicated due to GI bleed Critical Care time 40 minutes Patient s/p Cardiac Tamponade-Resolved Hemodynamics improving Prior cath-Normal Coronaries Normal EF by ECHO A Fib-Rate controlled-Not on anticoagulation There is no cardiac contraindication for EGD or Colonoscopy Likely cardiac risk for these procedures is low to intermediate Agree for EGD or Colonoscopy or both on Thursday Objective - Vital Signs/Intake and Output Vital Signs (last 24 hours): Temp Pulse Resp BP Pulse Ox 99.1 F 70 18 101/56 L 97 10/30/18 04:00 10/30/18 05:18 10/30/18 05:18 10/30/18 05:18 10/30/18 05:18 Intake and Output: 10/30/18 10/30/18 06:59 18:59 Intake Total 500 Output Total 1200 Balance -700 - Medications Medications: Current Medications Carvedilol (Coreg) 3.125 mg PO BID [facility] Last Admin: 10/29/18 17:19 Dose: 3.125 mg Ferric Sodium Gluconate Complex (Ferrlecit) 125 mg IVPB DAILY [facility] Stop: 11/04/18 10:01 Last Admin: 10/29/18 09:24 Dose: 125 mg Ceftriaxone Sodium 2 gm/ (Sodium Chloride) 100 mls @ 100 mls/hr IVPB DAILY [facility]; Protocol Last Admin: 10/29/18 10:22 Dose: 100 mls/hr Morphine Sulfate (Morphine) 2 mg IVP Q4 PRN PRN Reason: moderate to severe pain Last Admin: 10/27/18 12:15 Dose: 2 mg Pantoprazole Sodium (Protonix Ec Tab) 40 mg PO DAILY [facility] Last Admin: 10/29/18 09:24 Dose: 40 mg - Labs Labs: 10/30/18 06:19 10/30/18 06:17 PT 16.3 SECONDS (9.7-12.2) H 10/29/18 08:37 INR 1.5 10/29/18 08:37 APTT 27 SECONDS (21-34) 10/29/18 08:37
[2018-10-30] MEDS: Pantoprazole 40 mg EC Tab PO SCH (09:31)
[2018-10-30] MEDS: Ferric Sodium Gluconat Complex 62.5 mg/5 ml Vial IVPB SCH (09:31)
--- NOTE | 2018-10-30 10:25 | CP.PCM.PN ---
Subjective - Date & Time of Evaluation Date of Evaluation: 10/30/18 Time of Evaluation: 10:26 - Subjective Subjective: 62 y/o lady with hx of pacemaker and a. fib. She presented in ER with generalized weakness, dizziness near syncope, severe migraine, tachyarrhythmia, tachycardia, a. fib with rapid ventricular response and anemia the Hb is about 6 gm less that her baseline (14 to 8) She poorly responded to ivf. She still hemodynamically not stable, symptomatic will transfuse. Case discussed with call center support consultant. The guiac is positive will follow with GI hold anticoagulation. Hemodynamic instability.Patient received 2 U PRBC. [id number] she developed a cardiac tamponade and she underwent to a surgical intervention, a pericardial window. At present improving well. Still w/u pending and she is schedule for endoscopy to r/o GI bleed. Objective - Vital Signs/Intake and Output Vital Signs (last 24 hours): Temp Pulse Resp BP Pulse Ox 98.4 F 69 18 92/45 L 97 10/30/18 08:00 10/30/18 08:00 10/30/18 08:00 10/30/18 08:00 10/30/18 08:00 Intake and Output: 10/29/18 10/30/18 23:59 11:59 Intake Total 350 750 Output Total 1600 Balance 350 -850 - Medications Medications: Current Medications Carvedilol (Coreg) 3.125 mg PO BID [facility] Last Admin: 10/30/18 09:31 Dose: 3.125 mg Ferric Sodium Gluconate Complex (Ferrlecit) 125 mg IVPB DAILY [facility] Stop: 11/04/18 10:01 Last Admin: 10/30/18 09:31 Dose: 125 mg Ceftriaxone Sodium 2 gm/ (Sodium Chloride) 100 mls @ 100 mls/hr IVPB DAILY [facility]; Protocol Last Admin: 10/29/18 10:22 Dose: 100 mls/hr Morphine Sulfate (Morphine) 2 mg IVP Q4 PRN PRN Reason: moderate to severe pain Last Admin: 10/27/18 12:15 Dose: 2 mg Pantoprazole Sodium (Protonix Ec Tab) 40 mg PO DAILY [facility] Last Admin: 10/30/18 09:31 Dose: 40 mg - Labs Labs: 10/30/18 06:19 10/30/18 06:17 PT 16.3 SECONDS (9.7-12.2) H 10/29/18 08:37 INR 1.5 10/29/18 08:37 APTT 27 SECONDS (21-34) 10/29/18 08:37 - Constitutional Appears: Chronically Ill - Head Exam Head Exam: ATRAUMATIC, NORMAL INSPECTION, NORMOCEPHALIC - Eye Exam Eye Exam: Normal appearance - ENT Exam ENT Exam: Mucous Membranes Moist - Neck Exam Neck Exam: Full ROM - Respiratory Exam Respiratory Exam: Clear to Ausculation Bilateral - Cardiovascular Exam Cardiovascular Exam: REGULAR RHYTHM, +S1, +S2 - GI/Abdominal Exam GI & Abdominal Exam: Normal Bowel Sounds - Extremities Exam Extremities Exam: Normal Inspection - Back Exam Back Exam: NORMAL INSPECTION - Neurological Exam Neurological Exam: Alert, Awake, CN II-XII Intact, Oriented x3 - Psychiatric Exam Psychiatric exam: Normal Affect - Skin Skin Exam: Normal Color Assessment and Plan (1) Rapid atrial fibrillation Status: Acute (2) Symptomatic anemia Status: Acute (3) Atrial fibrillation Status: Acute (4) Hypertensive cardiovascular disease Status: Acute (5) Wide-complex tachycardia Status: Acute (6) Hypertension Status: Chronic (7) Pericardial effusion Status: Acute (8) Cardiac tamponade Status: Acute - Assessment and Plan (Free Text) Plan: as above
[2018-10-30] MEDS: cefTRIAXone 2 GM in Sodium Chloride 0.9% 100 ML IVPB SCH (10:42)
[2018-10-30] MEDS ORDERED: Magnesium Oxide 400 mg Tab UD PO ONE (11:00)
--- NOTE | 2018-10-30 12:52 | CP.PCM.PN ---
Subjective - Date & Time of Evaluation Date of Evaluation: 10/30/18 Time of Evaluation: 12:50 - Subjective Subjective: COVERING DR GÓMEZ/KELLE No bleeding or melena. Hgb 8.8 Objective - Vital Signs/Intake and Output Vital Signs (last 24 hours): Temp Pulse Resp BP Pulse Ox 98.2 F 78 18 104/53 L 98 10/30/18 12:00 10/30/18 12:00 10/30/18 12:00 10/30/18 12:00 10/30/18 12:00 Intake and Output: 10/30/18 10/30/18 06:59 18:59 Intake Total 500 250 Output Total 1200 400 Balance -700 -150 - Medications Medications: Current Medications Carvedilol (Coreg) 3.125 mg PO BID [facility] Last Admin: 10/30/18 09:31 Dose: 3.125 mg Ferric Sodium Gluconate Complex (Ferrlecit) 125 mg IVPB DAILY [facility] Stop: 11/04/18 10:01 Last Admin: 10/30/18 09:31 Dose: 125 mg Ceftriaxone Sodium 2 gm/ (Sodium Chloride) 100 mls @ 100 mls/hr IVPB DAILY [facility]; Protocol Last Admin: 10/30/18 10:42 Dose: 100 mls/hr Morphine Sulfate (Morphine) 2 mg IVP Q4 PRN PRN Reason: moderate to severe pain Last Admin: 10/27/18 12:15 Dose: 2 mg Pantoprazole Sodium (Protonix Ec Tab) 40 mg PO DAILY [facility] Last Admin: 10/30/18 09:31 Dose: 40 mg - Labs Labs: 10/30/18 06:19 10/30/18 06:17 PT 16.3 SECONDS (9.7-12.2) H 10/29/18 08:37 INR 1.5 10/29/18 08:37 APTT 27 SECONDS (21-34) 10/29/18 08:37 - Head Exam Head Exam: NORMAL INSPECTION - Respiratory Exam Respiratory Exam: NORMAL BREATHING PATTERN - Cardiovascular Exam Cardiovascular Exam: REGULAR RHYTHM - GI/Abdominal Exam GI & Abdominal Exam: Soft, Normal Bowel Sounds. absent: Distended, Tenderness, Mass, Rebound - Extremities Exam Extremities Exam: Normal Inspection Assessment and Plan (1) Iron deficiency anemia due to chronic blood loss Assessment & Plan: Appears to be clinically stable after pericardial window. Plan for EGD on thursday if stable. Monitor for overt bleeding Status: Acute (2) Fecal occult blood test positive Assessment & Plan: as above Status: Acute
[2018-10-31 04:14] LABS: BASO # 0.1 K/uL (0.0-0.2); BASO % 0.8 % (0.0-2.0); EOS # 0.3 K/uL (0.0-0.7); EOS % 4.1 % (0.0-4.0); HEMOGLOBIN 9.2 g/dL (11.0-16.0); LYMPH # 1.9 K/uL (1.0-4.3); LYMPH % 26.1 % (20.0-40.0); MEAN CELL VOLUME 81.8 fL (81.0-99.0); MEAN CORPUSCULAR HEMOGLOBIN 25.9 pg (27.0-31.0); MEAN CORPUSCULAR HGB CONC 31.6 g/dL (33.0-37.0); MEAN PLATELET VOLUME 7.4 fL (7.2-11.7); MONO # 1.1 K/uL (0.0-0.8); MONO % 16.1 % (0.0-10.0); NEUT # 3.8 K/uL (1.8-7.0); NEUT % 52.9 % (50.0-75.0); NRBC % 0.1 % (0.0-2.0); RBC 3.58 Mil/uL (3.80-5.20); RED CELL DISTRIBUTION WIDTH 18.9 % (11.5-14.5); WHITE BLOOD COUNT 7.1 K/uL (4.8-10.8)
[2018-10-31 04:30] LABS: ALB/GLOB RATIO 0.9 (1.0-2.1); ALBUMIN 2.7 g/dL (3.5-5.0); ALT/SGPT 24 U/L (9-52); AST/SGOT 31 U/L (14-36); BLOOD UREA NITROGEN 11 mg/dL (7-17); CALCIUM 8.2 mg/dl (8.6-10.4); GFR NON-AFRICAN AMERICAN > 60
[2018-10-31 04:41] LABS: CK-MB 0.75 ng/mL (0.0-3.38)
--- NOTE | 2018-10-31 04:50 | CP.PCM.PCO ---
Physician Communication Note - Physician Communication Note Physician Communication Note: please see above note
[2018-10-31] MEDS ORDERED: Magnesium Oxide 400 mg Tab UD PO ONE (05:00)
[2018-10-31] MEDS: Pantoprazole 40 mg EC Tab PO SCH (09:25)
[2018-10-31] MEDS: Magnesium Sulfate 1 gm in D5W 1 GM/100 ML BAG IVPB SCH ×2 (10:04→10:25)
--- NOTE | 2018-10-31 10:14 | CP.PCM.PN ---
"<Kasi Andres - Last Filed: 10/31/18 12:05> Subjective - Date & Time of Evaluation Date of Evaluation: 10/31/18 Time of Evaluation: 07:45 - Subjective Subjective: Patient seen and examined. Patient had pressure-like chest pain overnight. EKG and troponin was ordered and unremarkable. Patient was given MgOx x 1. patient's pain resolved by morning rounds. As this time she denies any fever, chills, chest pain, SOB, abdominal pain, nausea, vomiting, changes in bowel habits, or urinary symptoms. She states that the nasal canuli is annoying her. Objective - Vital Signs/Intake and Output Vital Signs (last 24 hours): Temp Pulse Resp BP Pulse Ox 99.3 F 78 22 102/54 L 96 10/31/18 08:00 10/31/18 08:00 10/31/18 08:00 10/31/18 08:00 10/31/18 08:00 Intake and Output: 10/31/18 10/31/18 06:59 18:59 Intake Total 0 Output Total 200 Balance -200 - Medications Medications: Current Medications Carvedilol (Coreg) 3.125 mg PO BID [facility] Last Admin: 10/31/18 09:25 Dose: 3.125 mg Ferric Sodium Gluconate Complex (Ferrlecit) 125 mg IVPB DAILY [facility] Stop: 11/04/18 10:01 Last Admin: 10/30/18 09:31 Dose: 125 mg Magnesium Sulfate/Dextrose (Magnesium Sulfate 1 Gm/100 Ml D5w) 1 gm in 100 mls @ 200 mls/hr IVPB Q30M [facility] Stop: 10/31/18 10:29 Last Admin: 10/31/18 10:04 Dose: 200 mls/hr Pantoprazole Sodium (Protonix Ec Tab) 40 mg PO DAILY [facility] Last Admin: 10/31/18 09:25 Dose: 40 mg - Labs Labs: 10/31/18 04:11 10/31/18 04:11 PT 16.3 SECONDS (9.7-12.2) H 10/29/18 08:37 INR 1.5 10/29/18 08:37 APTT 27 SECONDS (21-34) 10/29/18 08:37 - Head Exam Head Exam: ATRAUMATIC, NORMAL INSPECTION - Eye Exam Eye Exam: EOMI, Normal appearance. absent: Scleral icterus - ENT Exam ENT Exam: Mucous Membranes Moist - Cardiovascular Exam Cardiovascular Exam: JVD, RRR, +S1, +S2, Murmur - GI/Abdominal Exam GI & Abdominal Exam: Soft, Normal Bowel Sounds. absent: Tenderness - Extremities Exam Extremities Exam: Pedal Edema (+2). absent: Tenderness - Neurological Exam Neurological Exam: Alert, Awake, Oriented x3 - Psychiatric Exam Psychiatric exam: Normal Affect, Normal Mood - Skin Skin Exam: Dry, Intact, Warm Additional comments: Dressing on Xyphoid Process, Clean Dry and Intact. Assessment and Plan - Assessment and Plan (Free Text) Assessment: 62 F w/ PMhx of Afib & pacemaker (on eliquis at home) currently admitted to ICU for monitoring for weakness/ GI bleed, had episode of afib w/ RVR, large pericardial effusion s/p POD # 6 for pericardial window. Co-reg restarted, HR controlled. EGD planned for Thursday per GI. Plan: Pericardial Tamponade POD # 6 of pericardial Window ECHO (10/26/18): Normal LV Systolic Function, EF 55-60%, mild TR, Mild Pulm HTN, Small loculated Ant. pericardial effusion, small-moderate loculated posterior pericardial effusion. There are no echocardiographic indications of cardiac tamponade. Consults: CT Surgeon (Dr. Houston), Cardiology (Dr. Sultana), Hematology (Dr. Burgess) - All recs appreciated Pericardial Fluid, Gram Stain - Negative and no malignant cells. Meds: Carvedilol 3.125 PO BID Home Enalapril 20mg PO Daily (Held due to Hypotension) Pericarditis Etiology Unknown ID Consult (Dr. Perez), Recs Appreciated IZABELLA - NEGATIVE | RH - PENDING | CMV - POSITIVE IgG, Intermediate IgM | Coxackie A/B - PENDING | Echovirus-PENDING | Herpes - NEGATIVE | Lyme Disease - NEGATIVE | RPR - NEGATIVE | HIV 1 & 2 - NEGATIVE | TB (QFT) - Indeterminate (Likely Negative) AFB Culture - F/U | Fungus Culutre - F/U A-fib w/ Pacemaker. Rate controlled w/ Carvedilol EKG (10/31/18): NSR with no acute ST/T wave changes. Meds: Carvedilol 3.125 PO BID Eliquis 5 mg PO BID (HELD, due to GI Bleed) Normocytic Anemia Likely iron def. Anemia 2/2 to chronic GI Blood loss Meds: Ferrlecit 125mg IV Daily for 8 doses (Started on 10/27/18) GI Bleed Stool Occult Blood (10/23/18) - POSITIVE Stool Occult Blood (10/30/18) - NEGATIVE Consults: Hematology (Dr. Burgess), GI (Dr. Mcrae/Fernando) - All recs appreciated HOLD Antiplatelets/AntiCoags. EGD Planned for 11/01/18. NPO after midnight except meds. Meds: Protonix 40mg PO UTI Patient is asymptomatic, no intervention. UA (10/25/18): POSITIVE Leuk Es, WBC, Urine Culture (10/26/18) - NEGATIVE Hypertension. Cardiology Consult (Dr. Sultana), Recs appreciated Meds: Carvedilol 3.125 PO BID Home Enalapril 20mg PO Daily (Held due to Hypotension) Proph Protonix SCD's Pharm VTE proph Contraindicated due to GI Bleed HHD, NPO after midnight, except meds (11/01/18) Patient discussed with Attending Kasi Andres, PGY-2 <Andry Coats - Last Filed: 10/31/18 17:07> Objective - Vital Signs/Intake and Output Vital Signs (last 24 hours): Temp Pulse Resp BP Pulse Ox 99.4 F 79 18 106/57 L 96 10/31/18 16:00 10/31/18 16:00 10/31/18 16:00 10/31/18 16:00 10/31/18 16:00 Intake and Output: 10/31/18 10/31/18 06:59 18:59 Intake Total 850 Output Total 700 Balance 150 - Medications Medications: Current Medications Carvedilol (Coreg) 3.125 mg PO BID [facility] Last Admin: 10/31/18 09:25 Dose: 3.125 mg Ferric Sodium Gluconate Complex (Ferrlecit) 125 mg IVPB DAILY [facility] Stop: 11/04/18 10:01 Last Admin: 10/31/18 11:12 Dose: 125 mg Pantoprazole Sodium (Protonix Ec Tab) 40 mg PO DAILY [facility] Last Admin: 10/31/18 09:25 Dose: 40 mg - Labs Labs: 10/31/18 04:11 10/31/18 04:11 PT 16.3 SECONDS (9.7-12.2) H 10/29/18 08:37 INR 1.5 10/29/18 08:37 APTT 27 SECONDS (21-34) 10/29/18 08:37 Attending/Attestation - Attestation I have personally seen and examined this patient.: Yes I have fully participated in the care of the patient.: Yes I have reviewed all pertinent clinical information, including history, physical exam and plan: Yes Notes (Text): 10/31/18 17:[address] Wheeler from 10/31/18 through 11/03/18 Patient was seen and examined at 9:00 AM ICU Bed 12 Care of this patient was gone over in detail with resident Dr. Andres Upon FULL ROS: Central chest pressure substernal that lasted about 15 minutes after using bedpan this morning with NO other associated symptoms Currently not experiencing the chest pain Also on Exam: Bilateral NONpitting edema with Left Leg slightly greater in size than the Right Leg (Venous Dopplers negative on 10/25/18) For EGD on morning 11/01/18 Andry Coats D.O."
--- NOTE | 2018-10-31 10:45 | RAD ---
Date of service: 10/31/2018 HISTORY: chest pain COMPARISON: Comparison is made with 10/25/2018 FINDINGS: LUNGS: Interval improvement in the lungs noted since the previous exam with decrease in the pulmonary congestion. PLEURA: Persistent bilateral pleural effusions. CARDIOVASCULAR: Atherosclerotic calcification noted Normal cardiac size. Interval improvement in the pulmonary vascular congestion. Left-sided pacemaker is again seen in place. OSSEOUS STRUCTURES: No significant abnormalities. VISUALIZED UPPER ABDOMEN: Normal. OTHER FINDINGS: None. IMPRESSION: Interval improvement in the pulmonary vascular congestion since the prior study. Persistent bilateral pleural effusions.
[2018-10-31] MEDS: Ferric Sodium Gluconat Complex 62.5 mg/5 ml Vial IVPB SCH (11:12)
--- NOTE | 2018-10-31 11:14 | CP.PCM.PN ---
Subjective - Date & Time of Evaluation Date of Evaluation: 10/30/18 Time of Evaluation: 17:25 - Subjective Subjective: Patient seen and examined at bedside. S/P removal of pericardial tube Denies chest pain and dyspnea Hemodynamics improved 'Hgb stable at bedside Physical Examination - Physical Exam Head: Positive for: Atraumatic, Normocephalic Pupils: Positive for: PERRL Extroacular Muscles: Positive for: EOMI Conjunctiva: Positive for: Normal Mouth: Positive for: Moist Mucous Membranes Neck: Positive for: Normal Range of Motion, JVD Respiratory/Chest: Positive for: Clear to Auscultation, Good Air Exchange. Negative for: Accessory Muscle Use Cardiovascular: Positive for: Murmurs, Normal S1, S2, Other Abdomen: Positive for: Normal Bowel Sounds. Negative for: Tenderness, Distenti on, Guarding Upper Extremity: Positive for: Normal Inspection. Negative for: Edema Lower Extremity: Positive for: Normal Inspection. Negative for: Edema Neurological: Positive for: GCS=15 Skin: Positive for: Warm, Dry, Rashes, Normal Color Psychiatric: Positive for: Alert, Oriented x 3 Assessment and Plan - Assessment and Plan (Free Text) Assessment: 62 F w/ PMhx of Afib & pacemaker (on eliquis at home) currently admitted to ICU for monitoring for weakness/ GI bleed, had episode of afib w/ RVR, large pericardial effusion s/p for pericardial window w/ CARMEN drain 1) pericardial tamponade 2) afib RVR 3) anemia Plan: Neuro - A&O x3 Cardio - s/p pericardial tamponade-Resolved - continue to monitor - biopsy - fluid negative for malignant cells Resp - vitals wnl - continue to monitor GI - protonix 40 mg IVP Q12 - clear liquid diet Heme - H/H stable - WBC normalized - likely 2/2 to pericardial effusion - F/u IZABELLA, lyme, rehumatoid factor, Quantiforon gold - Ceftriaxone 2g daily Renal - GENE resolved - likely 2/2 to pericardial effusion - trend AM labs - freely voiding PPx: - GI: protonix - DVT: VTE contraindicated due to GI bleed Critical Care time 40 minutes Patient s/p Cardiac Tamponade-Resolved Hemodynamics improved Prior cath-Normal Coronaries Normal EF by ECHO A Fib-Rate controlled-Not on anticoagulation There is no cardiac contraindication for EGD or Colonoscopy Likely cardiac risk for these procedures is low to intermediate Agree for EGD or Colonoscopy or both on Thursday Objective - Vital Signs/Intake and Output Vital Signs (last 24 hours): Temp Pulse Resp BP Pulse Ox 99.3 F 78 22 102/54 L 96 10/31/18 08:00 10/31/18 08:00 10/31/18 08:00 10/31/18 08:00 10/31/18 08:00 Intake and Output: 10/31/18 10/31/18 06:59 18:59 Intake Total 500 Output Total 500 Balance 0 - Medications Medications: Current Medications Carvedilol (Coreg) 3.125 mg PO BID [facility] Last Admin: 10/31/18 09:25 Dose: 3.125 mg Ferric Sodium Gluconate Complex (Ferrlecit) 125 mg IVPB DAILY [facility] Stop: 11/04/18 10:01 Last Admin: 10/30/18 09:31 Dose: 125 mg Pantoprazole Sodium (Protonix Ec Tab) 40 mg PO DAILY [facility] Last Admin: 10/31/18 09:25 Dose: 40 mg - Labs Labs: 10/31/18 04:11 10/31/18 04:11 PT 16.3 SECONDS (9.7-12.2) H 10/29/18 08:37 INR 1.5 10/29/18 08:37 APTT 27 SECONDS (21-34) 10/29/18 08:37
--- NOTE | 2018-10-31 12:29 | CP.PCM.PN ---
Subjective - Date & Time of Evaluation Date of Evaluation: 10/31/18 Time of Evaluation: 12:26 - Subjective Subjective: COVERING DR GÓMEZ/KELLE No bleeding or melena Cardiac clearance given for EGD/Colonoscopy Objective - Vital Signs/Intake and Output Vital Signs (last 24 hours): Temp Pulse Resp BP Pulse Ox 99.3 F 79 18 104/43 L 97 10/31/18 08:00 10/31/18 10:00 10/31/18 10:00 10/31/18 10:00 10/31/18 10:00 Intake and Output: 10/31/18 10/31/18 06:59 18:59 Intake Total 500 Output Total 500 Balance 0 - Medications Medications: Current Medications Carvedilol (Coreg) 3.125 mg PO BID [facility] Last Admin: 10/31/18 09:25 Dose: 3.125 mg Ferric Sodium Gluconate Complex (Ferrlecit) 125 mg IVPB DAILY [facility] Stop: 11/04/18 10:01 Last Admin: 10/31/18 11:12 Dose: 125 mg Pantoprazole Sodium (Protonix Ec Tab) 40 mg PO DAILY [facility] Last Admin: 10/31/18 09:25 Dose: 40 mg - Labs Labs: 10/31/18 04:11 10/31/18 04:11 PT 16.3 SECONDS (9.7-12.2) H 10/29/18 08:37 INR 1.5 10/29/18 08:37 APTT 27 SECONDS (21-34) 10/29/18 08:37 - Constitutional Appears: No Acute Distress - Head Exam Head Exam: ATRAUMATIC, NORMOCEPHALIC - Respiratory Exam Respiratory Exam: NORMAL BREATHING PATTERN - Cardiovascular Exam Cardiovascular Exam: REGULAR RHYTHM - GI/Abdominal Exam GI & Abdominal Exam: Soft, Normal Bowel Sounds. absent: Tenderness Assessment and Plan (1) Iron deficiency anemia due to chronic blood loss Assessment & Plan: Plan to procede with EGD tomorrow. Colonoscopy if needed as outpatient or to follow. Status: Acute (2) Fecal occult blood test positive Assessment & Plan: as above Status: Acute
--- NOTE | 2018-10-31 20:27 | CP.PCM.PN ---
Subjective - Date & Time of Evaluation Date of Evaluation: 10/31/18 Time of Evaluation: 13:20 - Subjective Subjective: Patient seen and examined at bedside. S/P removal of pericardial tube Denies chest pain and dyspnea Family at bedside Physical Examination - Physical Exam Head: Positive for: Atraumatic, Normocephalic Pupils: Positive for: PERRL Extroacular Muscles: Positive for: EOMI Conjunctiva: Positive for: Normal Mouth: Positive for: Moist Mucous Membranes Neck: Positive for: Normal Range of Motion, JVD Respiratory/Chest: Positive for: Clear to Auscultation, Good Air Exchange. Negative for: Accessory Muscle Use Cardiovascular: Positive for: Murmurs, Normal S1, S2, Other Abdomen: Positive for: Normal Bowel Sounds. Negative for: Tenderness, Distention, Guarding Upper Extremity: Positive for: Normal Inspection. Negative for: Edema Lower Extremity: Positive for: Normal Inspection. Negative for: Edema Neurological: Positive for: GCS=15 Skin: Positive for: Warm, Dry, Rashes, Normal Color Psychiatric: Positive for: Alert, Oriented x 3 Objective - Vital Signs/Intake and Output Vital Signs (last 24 hours): Temp Pulse Resp BP Pulse Ox 99.4 F 79 18 106/57 L 96 10/31/18 16:00 10/31/18 16:00 10/31/18 16:00 10/31/18 16:00 10/31/18 16:00 Intake and Output: 10/31/18 11/01/18 18:59 06:59 Intake Total 850 Output Total 700 Balance 150 - Medications Medications: Current Medications Carvedilol (Coreg) 3.125 mg PO BID [facility] Last Admin: 10/31/18 17:46 Dose: 3.125 mg Ferric Sodium Gluconate Complex (Ferrlecit) 125 mg IVPB DAILY [facility] Stop: 11/04/18 10:01 Last Admin: 10/31/18 11:12 Dose: 125 mg Pantoprazole Sodium (Protonix Ec Tab) 40 mg PO DAILY [facility] Last Admin: 10/31/18 09:25 Dose: 40 mg - Labs Labs: 10/31/18 04:11 10/31/18 04:11 PT 16.3 SECONDS (9.7-12.2) H 10/29/18 08:37 INR 1.5 10/29/18 08:37 APTT 27 SECONDS (21-34) 10/29/18 08:37 Assessment and Plan - Assessment and Plan (Free Text) Assessment: 62 F w/ PMhx of Afib & pacemaker (on eliquis at home) currently admitted to ICU for monitoring for weakness/ GI bleed, had episode of afib w/ RVR, large pericar dial effusion s/p for pericardial window w/ CARMEN drain 1) pericardial tamponade 2) afib RVR 3) anemia Plan: Neuro - A&O x3 Cardio - s/p pericardial tamponade-Resolved - continue to monitor - biopsy - fluid negative for malignant cells Resp - vitals wnl - continue to monitor GI - protonix 40 mg IVP Q12 - clear liquid diet Heme - H/H stable - WBC normalized - likely 2/2 to pericardial effusion - F/u IZABELLA, lyme, rehumatoid factor, Quantiforon gold - Ceftriaxone 2g daily Renal - GENE resolved - likely 2/2 to pericardial effusion - trend AM labs - freely voiding PPx: - GI: protonix - DVT: VTE contraindicated due to GI bleed Critical Care time 40 minutes Patient s/p Cardiac Tamponade-Resolved Hemodynamics improved Prior cath-Normal Coronaries Normal EF by ECHO A Fib-Rate controlled-Not on anticoagulation There is no cardiac contraindication for EGD or Colonoscopy Likely cardiac risk for these procedures is low to intermediate Agree for EGD or Colonoscopy or both on Thursday Critical Care time 35 min
--- NOTE | 2018-11-01 00:55 | CP.PCM.PN ---
Subjective - Date & Time of Evaluation Date of Evaluation: 10/28/18 Time of Evaluation: 12:00 - Subjective Subjective: Feeling better. Objective - Vital Signs/Intake and Output Vital Signs (last 24 hours): Temp Pulse Resp BP Pulse Ox 99.2 F 72 16 99/55 L 95 11/01/18 00:00 11/01/18 00:00 11/01/18 00:00 11/01/18 00:00 11/01/18 00:00 Intake and Output: 10/31/18 11/01/18 18:59 06:59 Intake Total 850 240 Output Total 700 900 Balance 150 -660 - Medications Medications: Current Medications Carvedilol (Coreg) 3.125 mg PO BID [facility] Last Admin: 10/31/18 17:46 Dose: 3.125 mg Ferric Sodium Gluconate Complex (Ferrlecit) 125 mg IVPB DAILY [facility] Stop: 11/04/18 10:01 Last Admin: 10/31/18 11:12 Dose: 125 mg Pantoprazole Sodium (Protonix Ec Tab) 40 mg PO DAILY [facility] Last Admin: 10/31/18 09:25 Dose: 40 mg - Labs Labs: 10/31/18 04:11 10/31/18 04:11 PT 16.3 SECONDS (9.7-12.2) H 10/29/18 08:37 INR 1.5 10/29/18 08:37 APTT 27 SECONDS (21-34) 10/29/18 08:37 - Head Exam Head Exam: ATRAUMATIC - Eye Exam Eye Exam: Normal appearance - ENT Exam ENT Exam: Mucous Membranes Dry - Respiratory Exam Respiratory Exam: Decreased Breath Sounds - Cardiovascular Exam Cardiovascular Exam: +S1, +S2 - GI/Abdominal Exam GI & Abdominal Exam: Normal Bowel Sounds Assessment and Plan (1) Platelet dysfunction Assessment & Plan: ? related to anticoagulation will trend Status: Acute (2) Coagulopathy Assessment & Plan: nutritional prior anticoagulation Status: Acute (3) Anemia Assessment & Plan: iron deficiency on IV iron GI w/u likely chronic GI blood loss transfusion support Status: Acute (4) Pericardial effusion Assessment & Plan: hemorrhagic f/u cytology Status: Acute
--- NOTE | 2018-11-01 00:57 | CP.PCM.PN ---
Subjective - Date & Time of Evaluation Date of Evaluation: 10/29/18 Time of Evaluation: 17:00 - Subjective Subjective: No complaints. Objective - Vital Signs/Intake and Output Vital Signs (last 24 hours): Temp Pulse Resp BP Pulse Ox 99.2 F 72 16 99/55 L 95 11/01/18 00:00 11/01/18 00:00 11/01/18 00:00 11/01/18 00:00 11/01/18 00:00 Intake and Output: 10/31/18 11/01/18 18:59 06:59 Intake Total 850 240 Output Total 700 900 Balance 150 -660 - Medications Medications: Current Medications Carvedilol (Coreg) 3.125 mg PO BID [facility] Last Admin: 10/31/18 17:46 Dose: 3.125 mg Ferric Sodium Gluconate Complex (Ferrlecit) 125 mg IVPB DAILY [facility] Stop: 11/04/18 10:01 Last Admin: 10/31/18 11:12 Dose: 125 mg Pantoprazole Sodium (Protonix Ec Tab) 40 mg PO DAILY [facility] Last Admin: 10/31/18 09:25 Dose: 40 mg - Labs Labs: 10/31/18 04:11 10/31/18 04:11 PT 16.3 SECONDS (9.7-12.2) H 10/29/18 08:37 INR 1.5 10/29/18 08:37 APTT 27 SECONDS (21-34) 10/29/18 08:37 - Head Exam Head Exam: ATRAUMATIC - Eye Exam Eye Exam: Normal appearance - ENT Exam ENT Exam: Mucous Membranes Dry - Respiratory Exam Respiratory Exam: NORMAL BREATHING PATTERN - Cardiovascular Exam Cardiovascular Exam: +S1, +S2 - GI/Abdominal Exam GI & Abdominal Exam: Normal Bowel Sounds Assessment and Plan (1) Platelet dysfunction Assessment & Plan: ? related to anticoagulation will trend Status: Acute (2) Coagulopathy Assessment & Plan: nutritional prior anticoagulation Status: Acute (3) Anemia Assessment & Plan: iron deficiency on IV iron GI w/u likely chronic GI blood loss transfusion support Status: Acute (4) Pericardial effusion Assessment & Plan: hemorrhagic anticoagulation on hold cytology negative for malignancy Status: Acute
--- NOTE | 2018-11-01 00:58 | CP.PCM.PN ---
Subjective - Date & Time of Evaluation Date of Evaluation: 10/30/18 Time of Evaluation: 16:00 - Subjective Subjective: No complaints. Objective - Vital Signs/Intake and Output Vital Signs (last 24 hours): Temp Pulse Resp BP Pulse Ox 99.2 F 72 16 99/55 L 95 11/01/18 00:00 11/01/18 00:00 11/01/18 00:00 11/01/18 00:00 11/01/18 00:00 Intake and Output: 10/31/18 11/01/18 18:59 06:59 Intake Total 850 240 Output Total 700 900 Balance 150 -660 - Medications Medications: Current Medications Carvedilol (Coreg) 3.125 mg PO BID [facility] Last Admin: 10/31/18 17:46 Dose: 3.125 mg Ferric Sodium Gluconate Complex (Ferrlecit) 125 mg IVPB DAILY [facility] Stop: 11/04/18 10:01 Last Admin: 10/31/18 11:12 Dose: 125 mg Pantoprazole Sodium (Protonix Ec Tab) 40 mg PO DAILY [facility] Last Admin: 10/31/18 09:25 Dose: 40 mg - Labs Labs: 10/31/18 04:11 10/31/18 04:11 PT 16.3 SECONDS (9.7-12.2) H 10/29/18 08:37 INR 1.5 10/29/18 08:37 APTT 27 SECONDS (21-34) 10/29/18 08:37 - Head Exam Head Exam: ATRAUMATIC - Eye Exam Eye Exam: Normal appearance - ENT Exam ENT Exam: Mucous Membranes Dry - Respiratory Exam Respiratory Exam: NORMAL BREATHING PATTERN - Cardiovascular Exam Cardiovascular Exam: +S1, +S2 - GI/Abdominal Exam GI & Abdominal Exam: Normal Bowel Sounds Assessment and Plan (1) Platelet dysfunction Assessment & Plan: ? related to anticoagulation will trend Status: Acute (2) Coagulopathy Assessment & Plan: nutritional prior anticoagulation Status: Acute (3) Anemia Assessment & Plan: H/H stable iron deficiency on IV iron GI w/u likely chronic GI blood loss transfusion support Status: Acute (4) Pericardial effusion Assessment & Plan: hemorrhagic anticoagulation on hold cytology negative for malignancy Status: Acute
[2018-11-01 06:08] LABS: BASO # 0.1 K/uL (0.0-0.2); BASO % 1.7 % (0.0-2.0); EOS # 0.2 K/uL (0.0-0.7); EOS % 2.3 % (0.0-4.0); HEMOGLOBIN 9.9 g/dL (11.0-16.0); LYMPH # 1.6 K/uL (1.0-4.3); MEAN CELL VOLUME 83.6 fL (81.0-99.0); MEAN CORPUSCULAR HGB CONC 31.1 g/dL (33.0-37.0); MEAN PLATELET VOLUME 7.5 fL (7.2-11.7); MONO # 1.2 K/uL (0.0-0.8); MONO % 13.8 % (0.0-10.0); NEUT # 5.4 K/uL (1.8-7.0); NEUT % 63.2 % (50.0-75.0); RBC 3.81 Mil/uL (3.80-5.20); RED CELL DISTRIBUTION WIDTH 20.2 % (11.5-14.5); WHITE BLOOD COUNT 8.5 K/uL (4.8-10.8)
[2018-11-01 06:19] LABS: PLT BASE COUNT 266 K/uL
[2018-11-01 06:20] LABS: FUNCTIONING PLTS 139 K/uL; PLT(ADP) 127 K/uL
[2018-11-01 06:30] LABS: ALBUMIN 3.1 g/dL (3.5-5.0); ALT/SGPT 17 U/L (9-52); AST/SGOT 38 U/L (14-36); BLOOD UREA NITROGEN 9 mg/dL (7-17); CALCIUM 8.6 mg/dl (8.6-10.4); GFR NON-AFRICAN AMERICAN > 60
--- NOTE | 2018-11-01 07:53 | CP.PCM.PN ---
"<Dillon Zuñiga - Last Filed: 11/01/18 14:38> Subjective - Date & Time of Evaluation Date of Evaluation: 11/01/18 Time of Evaluation: 08:39 - Subjective Subjective: Medicine progress note for Dr. Love Patient seen and examined. Pt reports resolution of chest discomfort she was experiencing yesterday. She states that the pain in her left arm is improving as well. She has no complaints at this time. Denies fever, chills, chest pain, SOB, abdominal pain, nausea, vomiting, hematochezia, melena, changes in bowel habits, or urinary symptoms. Pt will go for EGD today at 2 pm. Objective - Vital Signs/Intake and Output Vital Signs (last 24 hours): Temp Pulse Resp BP Pulse Ox 99.1 F 70 15 108/57 L 96 11/01/18 04:00 11/01/18 04:00 11/01/18 04:00 11/01/18 04:00 11/01/18 04:00 Intake and Output: 11/01/18 11/01/18 06:59 18:59 Intake Total 340 Output Total 1600 Balance -1260 - Medications Medications: Current Medications Carvedilol (Coreg) 3.125 mg PO BID [facility] Last Admin: 10/31/18 17:46 Dose: 3.125 mg Ferric Sodium Gluconate Complex (Ferrlecit) 125 mg IVPB DAILY [facility] Stop: 11/04/18 10:01 Last Admin: 10/31/18 11:12 Dose: 125 mg Pantoprazole Sodium (Protonix Ec Tab) 40 mg PO DAILY [facility] Last Admin: 10/31/18 09:25 Dose: 40 mg - Labs Labs: 11/01/18 05:59 11/01/18 05:59 PT 16.3 SECONDS (9.7-12.2) H 10/29/18 08:37 INR 1.5 10/29/18 08:37 APTT 27 SECONDS (21-34) 10/29/18 08:37 - Constitutional Appears: Non-toxic, No Acute Distress - Head Exam Head Exam: ATRAUMATIC, NORMAL INSPECTION - Eye Exam Eye Exam: EOMI, Normal appearance - ENT Exam ENT Exam: Mucous Membranes Moist - Respiratory Exam Respiratory Exam: Clear to Ausculation Bilateral. absent: Decreased Breath Sounds, Rales, Rhonchi, Wheezes, Stridor - Cardiovascular Exam Cardiovascular Exam: REGULAR RHYTHM, +S1, +S2 Additional comments: Dressing on Xyphoid Process, Clean Dry and Intact. - GI/Abdominal Exam GI & Abdominal Exam: Soft, Normal Bowel Sounds. absent: Distended, Firm, Guarding, Rigid, Tenderness - Extremities Exam Extremities Exam: Full ROM, Normal Capillary Refill, Pedal Edema (nonpitting edema bilaterally). absent: Calf Tenderness - Back Exam Back Exam: NORMAL INSPECTION - Neurological Exam Neurological Exam: Alert, Awake - Psychiatric Exam Psychiatric exam: Normal Affect, Normal Mood - Skin Skin Exam: Dry, Normal Color, Warm Additional comments: Left upper arm thrombophlebitis with ice pack on it, minimal induration, no swelling, minimal tenderness Pulses 2+ distally, good capillary refill, sensation and motor function intact Assessment and Plan - Assessment and Plan (Free Text) Assessment: 62 F w/ PMhx of Afib & pacemaker (on eliquis at home) currently admitted to ICU for monitoring for weakness/ GI bleed, had episode of afib w/ RVR, large pericardial effusion s/p POD # 6 for pericardial window. Co-reg restarted, HR controlled. EGD planned for this afternoon. Plan: Pericardial Tamponade POD # 7 of pericardial Window ECHO (10/26/18): Normal LV Systolic Function, EF 55-60%, mild TR, Mild Pulm HTN, Small loculated Ant. pericardial effusion, small-moderate loculated posterior pericardial effusion. There are no echocardiographic indications of cardiac tamponade. Consults: CT Surgeon (Dr. Houston), Cardiology (Dr. Sultana), Hematology (Dr. Burgess) - All recs appreciated Pericardial Fluid, Gram Stain - Negative and no malignant cells. Meds: Carvedilol 3.125 PO BID Home Enalapril 20mg PO Daily (Held due to Hypotension) Pericarditis Etiology Unknown ID Consult (Dr. Perez), Recs Appreciated IZABELLA - NEGATIVE | RH - PENDING | CMV - POSITIVE IgG, Intermediate IgM | Coxackie A/B - PENDING | Echovirus-PENDING | Herpes - NEGATIVE | Lyme Disease - NEGATIVE | RPR - NEGATIVE | HIV 1 & 2 - NEGATIVE | TB (QFT) - Indeterminate (Likely Negative) AFB Culture - F/U | Fungus Culture - F/U A-fib w/ Pacemaker. Rate control w/ Carvedilol EKG (10/31/18): NSR with no acute ST/T wave changes. Meds: Carvedilol 3.125 PO BID Eliquis 5 mg PO BID (HELD, due to GI Bleed) Normocytic Anemia Likely iron def. Anemia 2/2 to chronic GI Blood loss Meds: Ferrlecit 125mg IV Daily for 8 doses (Started on 10/27/18) GI Bleed Stool Occult Blood (10/23/18) - POSITIVE Stool Occult Blood (10/30/18) - NEGATIVE Consults: Hematology (Dr. Burgess), GI (Dr. Mcrae/Fernando) - All recs appreciated HOLD Antiplatelets/AntiCoags. EGD Planned for 11/01/18. Meds: Protonix 40mg PO Left Upper Arm Superficial Plebitis: Left Anterior Upper Arm area superior to prior IV access site there is blanchable erythema and a hardness palpated Continue Ice Packs for 1 hour every 4 hours for now NO NSAIDS for now considering the workup for Anemia is pending F/U Venous Doppler Left Arm 11/01/18 to make sure that there is NO DVT Hypomagnesemia 1.6 today MgSulfate 1 g IVPB Will continue to monitor and replete as necessary UTI Patient is asymptomatic, no intervention. UA (10/25/18): POSITIVE Leuk Es, WBC, Urine Culture (10/26/18) - NEGATIVE Hypertension. Cardiology Consult (Dr. Sultana), Recs appreciated Meds: Carvedilol 3.125 PO BID Home Enalapril 20mg PO Daily (Held due to Hypotension) PPx: Protonix SCD's Compression stocking and elevation of lower extremities to decrease edema Chemical VTE proph Contraindicated due to GI Bleed HHD <Aidee Love V - Last Filed: 11/01/18 22:19> Objective - Vital Signs/Intake and Output Vital Signs (last 24 hours): Temp Pulse Resp BP Pulse Ox 99.5 F 74 21 121/53 L 98 11/01/18 20:00 11/01/18 20:00 11/01/18 20:00 11/01/18 20:00 11/01/18 20:00 Intake and Output: 11/01/18 11/02/18 18:59 06:59 Intake Total 425 Output Total 400 Balance 25 - Medications Medications: Current Medications Carvedilol (Coreg) 3.125 mg PO BID [facility] Last Admin: 11/01/18 17:10 Dose: 3.125 mg Ferric Sodium Gluconate Complex (Ferrlecit) 125 mg IVPB DAILY [facility] Stop: 11/04/18 10:01 Last Admin: 11/01/18 09:38 Dose: 125 mg Pantoprazole Sodium (Protonix Ec Tab) 40 mg PO DAILY [facility] Last Admin: 11/01/18 09:31 Dose: 40 mg - Labs Labs: 11/01/18 05:59 11/01/18 05:59 PT 14.8 SECONDS (9.7-12.2) H 11/01/18 10:05 INR 1.4 11/01/18 10:05 APTT 27 SECONDS (21-34) 10/29/18 08:37 Attending/Attestation - Attestation I have personally seen and examined this patient.: Yes I have fully participated in the care of the patient.: Yes I have reviewed all pertinent clinical information, including history, physical exam and plan: Yes Notes (Text): Patient seen, examined, and case discussed with medical sales associate. Hospitalist Service Covering Dr. Wheeler until 11/03/18; Dr. Wheeler to resume care 11/04/18. 62 F w/ PMhx of Afib & pacemaker (on eliquis at home) currently admitted to ICU for monitoring for weakness/ GI bleed, had episode of afib w/ RVR, large pericardial effusion s/p pericardial window. Patient was transferred out to telemetry on 10/29/18 awaiting bed upstairs. Patient is NPO for EGD planned this afternoon. Patient denies headache, denies chest pain, denies shortness of breathe, denies nor BRBPR, denies black stool, but reports edema bilateral lower extremities. Assessment/Plan: 1. Pericardial Tamponade Assessment/Plan * s/p pericardial Window; tubes removed * ECHO (10/26/18): Normal LV Systolic Function, EF 55-60%, mild TR, Mild Pulm HTN, Small loculated Ant. pericardial effusion, small-moderate loculated posterior pericardial effusion. There are no echocardiographic indications of cardiac tamponade. * Consults: CT Surgeon (Dr. Houston), Cardiology (Dr. Sultana), Hematology (Dr. Burgess) - All recs appreciated Pericardial Fluid, Gram Stain - Negative and no malignant cells. Meds: Carvedilol 3.125 PO BID Home Enalapril 20mg PO Daily (Held due to Hypotension) 2. Pericarditis, Hemorrhagic Assessment/Plan * Etiology Unknown * ID Consult (Dr. Perez), Recs Appreciated IZABELLA - NEGATIVE | RH - PENDING | CMV - POSITIVE IgG, Intermediate IgM | Coxackie A/B - PENDING | Echovirus PENDING | Herpes - NEGATIVE | Lyme Disease - NEGATIVE | RPR - NEGATIVE | HIV 1 & 2 - NEGATIVE | TB (QFT) - Indeterminate (Likely Negative) * AFB Culture - F/U | Fungus Culture - F/U * Rocephin held by ID 3. A-fibrillation History of Tachybrady syndrome w/ Pacemaker. Assessment/Plan * Cardiology (Dr. Sultana) on board * Rate control w/ Carvedilol * EKG (10/31/18): NSR with no acute ST/T wave changes. Meds: * Carvedilol 3.125 PO BID * Eliquis 5 mg PO BID (HELD, due to GI Bleed) * Will need to follow-up with GI to determine if patient can restart Eliquis * Patient has an outpatient appointment with Dr. Ravi regarding pacemaker since it was recently placed in July 2018 4. Normocytic Anemia Assessment/Plan * Likely iron def. Anemia 2/2 to chronic GI Blood loss * Meds: Ferrlecit 125mg IV Daily for 8 doses (Started on 10/27/18) * Patient to undergo EGD; will need to f/u with GI in regards to when to restart Eliquis 5. Positive Stool Occult Blood GI Bleed Assessment/Plan * Patient noted significant hemoglobin drop by 6 in beginning of admission * Initially EGD cancelled since patient was hemodynamic instable and requiring further workup * Stool Occult Blood (10/23/18) - POSITIVE * Stool Occult Blood (10/30/18) - NEGATIVE * Consults: Hematology (Dr. Burgess), GI (Dr. Mcrae/Fernando) - All recs appreciated * HOLD Antiplatelets/AntiCoags. * EGD Planned for 11/01/18. * Follow-up results; f/u to see when patient can restart Eliquis 6. Left Upper Arm Superficial Plebitis: Assessment/Plan * Left Anterior Upper Arm area superior to prior IV access site there is blanchable erythema and a hardness palpated * Continue Ice Packs for 1 hour every 4 hours for now * NO NSAIDS for now considering the workup for Anemia is pending * F/U Venous Doppler Left Arm 11/01/18 to make sure that there is NO DVT which is still pending 7. Hypomagnesemia Assessment/Plan * monitor and repleted 8. UTI Assessment/Plan * Patient is asymptomatic, no intervention. * UA (10/25/18): POSITIVE Leuk Es, WBC, * Urine Culture (10/26/18) - NEGATIVE * Patient was on Rocephin which was held by ID 9.Hypertension Assessment/Plan * Cardiology Consult (Dr. Sultana), Recs appreciated * Meds: Carvedilol 3.125 PO BID Home Enalapril 20mg PO Daily (Held due to Hypotension) 10 Lower extremity Edema Assessment/Plan * venous doppler: negative for DVT (10/25/18) * Order for kai stockings 10. PPx: * Protonix * SCD's * Compression stocking and elevation of lower extremities to decrease edema * Chemical VTE proph Contraindicated due to GI Bleed * Case and social services manager consult: [facility] ([facility]) * PT/OT reconsulted Disposition: Patient scheduled for EGD today; f/u results. Will need to follow- up with Gi/Heme-onc/cardio regarding restarting Eliquis pending results of EGD. 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 Likely recommend for rehab. PT/OT reconsulted. I believe Dr. Wheeler's preference for TCU is for [facility]."
[2018-11-01] MEDS ORDERED: Magnesium Sulfate 1 gm in D5W 1 GM/100 ML BAG IVPB ONE (09:00)
[2018-11-01] MEDS: Pantoprazole 40 mg EC Tab PO SCH (09:31)
[2018-11-01] MEDS: Ferric Sodium Gluconat Complex 62.5 mg/5 ml Vial IVPB SCH (09:38)
[2018-11-01 10:29] LABS: INR 1.4; PROTHROMBIN TIME 14.8 SECONDS (9.7-12.2)
--- NOTE | 2018-11-01 12:49 | CARD ---
APPROVED REPORT Date of service: 10/31/2018 EKG Measurement Heart [id number] <Conclusion> Normal sinus rhythm Left axis deviation Left bundle branch block Abnormal ECG
[2018-11-01] MEDS ORDERED: Etomidate 20 mg/10ml Inj IV ONE (13:59)
[2018-11-01] MEDS ORDERED: Lactated Ringer's 1,000 ML IV ONE (14:00)
[2018-11-01] MEDS ORDERED: Propofol 10 mg/ml Inj (20 ML) ONE (14:09)
--- NOTE | 2018-11-01 17:15 | CP.PCM.PN ---
Subjective - Date & Time of Evaluation Date of Evaluation: 10/31/18 Time of Evaluation: 13:00 - Subjective Subjective: INFECTIOUS DISEASE PROGRESS NOTES MARK ANTHONY DOLAN MD,FACP 10/31/2018 CHART REVIEWED CASE DISCUSSED WITH RN CONCERNING IV AB 62 y/o lady with hx of pacemaker and a. fib. She presented in ER with generalized weakness, dizziness near syncope, severe migraine, tachyarrhythmia, tachycardia, a. fib with rapid ventricular response and anemia the Hb is about 6 gm less that her baseline (14 to 8) She poorly responded to ivf. She still hemodynamically not stable, symptomatic will transfuse. Case discussed with risk consultant. The guiac is positive will follow with GI hold anticoagulation. Hemodynamic instability.Patient received 2 U PRBC. [id number] she developed a cardiac tamponade and she underwent to a surgical intervention, a pericardial window. At present improving well. Still w/u pending and she is schedule for endoscopy to r/o GI bleed. TO D/C IV ROCEPHIN AND OBSERVE RESPONSE. Objective - Vital Signs/Intake and Output Vital Signs (last 24 hours): Temp Pulse Resp BP Pulse Ox 98.9 F 70 17 121/58 L 96 11/01/18 14:20 11/01/18 14:50 11/01/18 14:50 11/01/18 14:50 11/01/18 14:50 Intake and Output: 11/01/18 11/01/18 06:59 18:59 Intake Total 340 225 Output Total 1600 Balance -1260 225 - Medications Medications: Current Medications Carvedilol (Coreg) 3.125 mg PO BID [facility] Last Admin: 11/01/18 17:10 Dose: 3.125 mg Ferric Sodium Gluconate Complex (Ferrlecit) 125 mg IVPB DAILY [facility] Stop: 11/04/18 10:01 Last Admin: 11/01/18 09:38 Dose: 125 mg Pantoprazole Sodium (Protonix Ec Tab) 40 mg PO DAILY [facility] Last Admin: 11/01/18 09:31 Dose: 40 mg - Labs Labs: 11/01/18 05:59 11/01/18 05:59 PT 14.8 SECONDS (9.7-12.2) H 11/01/18 10:05 INR 1.4 11/01/18 10:05 APTT 27 SECONDS (21-34) 10/29/18 08:37
--- NOTE | 2018-11-01 17:45 | CP.PCM.PN ---
Subjective - Date & Time of Evaluation Date of Evaluation: 11/01/18 Time of Evaluation: 17:42 - Subjective Subjective: INFECTIOUS DISEASE PROGRESS NOTES MARK ANTHONY DOLAN MD,FACP 11/01/2018 CHART REVIEWED PT EXAMINED CASE DISCUSSED WITH PT, AND FAMILY S/P STOPPING IV ANTIBIOTICS YESTERDAY AFEBRILE, NL WBC LEFT UPPERARM WITH PHLEBITIS FROM IV SITE RESULTS OF UGI: EGD showed gastritis, biopsied, and normal duodenum which was also biopsied. Advance diet as tolerated as per GI. AWAITING FURTHER RESULTS FROM TESTS STILL PENDING. RA PENDING REPEAT CMV IGG/IGM AND PCR, AND QUANTIFERON GOLD TO BE DONE IN A FEW WEEKS. Objective - Vital Signs/Intake and Output Vital Signs (last 24 hours): Temp Pulse Resp BP Pulse Ox 98.9 F 70 17 121/58 L 96 11/01/18 14:20 11/01/18 14:50 11/01/18 14:50 11/01/18 14:50 11/01/18 14:50 Intake and Output: 11/01/18 11/01/18 06:59 18:59 Intake Total 340 225 Output Total 1600 Balance -1260 225 - Medications Medications: Current Medications Carvedilol (Coreg) 3.125 mg PO BID [facility] Last Admin: 11/01/18 17:10 Dose: 3.125 mg Ferric Sodium Gluconate Complex (Ferrlecit) 125 mg IVPB DAILY [facility] Stop: 11/04/18 10:01 Last Admin: 11/01/18 09:38 Dose: 125 mg Pantoprazole Sodium (Protonix Ec Tab) 40 mg PO DAILY [facility] Last Admin: 11/01/18 09:31 Dose: 40 mg - Labs Labs: 11/01/18 05:59 11/01/18 05:59 PT 14.8 SECONDS (9.7-12.2) H 11/01/18 10:05 INR 1.4 11/01/18 10:05 APTT 27 SECONDS (21-34) 10/29/18 08:37
--- NOTE | 2018-11-01 23:48 | CP.PCM.PN ---
"Subjective - Date & Time of Evaluation Date of Evaluation: 11/01/18 Time of Evaluation: 11:10 - Subjective Subjective: Patient seen and evaluated For EGD today Objective - Vital Signs/Intake and Output Vital Signs (last 24 hours): Temp Pulse Resp BP Pulse Ox 99.1 F 70 15 108/57 L 96 11/01/18 04:00 11/01/18 04:00 11/01/18 04:00 11/01/18 04:00 11/01/18 04:00 Intake and Output: 11/01/18 11/01/18 06:59 18:59 Intake Total 340 Output Total 1600 Balance -1260 - Medications Medications: Current Medications Carvedilol (Coreg) 3.125 mg PO BID [facility] Last Admin: 10/31/18 17:46 Dose: 3.125 mg Ferric Sodium Gluconate Complex (Ferrlecit) 125 mg IVPB DAILY [facility] Stop: 11/04/18 10:01 Last Admin: 10/31/18 11:12 Dose: 125 mg Pantoprazole Sodium (Protonix Ec Tab) 40 mg PO DAILY [facility] Last Admin: 10/31/18 09:25 Dose: 40 mg - Labs Labs: 11/01/18 05:59 11/01/18 05:59 PT 16.3 SECONDS (9.7-12.2) H 10/29/18 08:37 INR 1.5 10/29/18 08:37 APTT 27 SECONDS (21-34) 10/29/18 08:37 - Constitutional Appears: Non-toxic, No Acute Distress - Head Exam Head Exam: ATRAUMATIC, NORMAL INSPECTION - Eye Exam Eye Exam: EOMI, Normal appearance - ENT Exam ENT Exam: Mucous Membranes Moist - Respiratory Exam Respiratory Exam: Clear to Ausculation Bilateral. absent: Decreased Breath Sounds, Rales, Rhonchi, Wheezes, Stridor - Cardiovascular Exam Cardiovascular Exam: REGULAR RHYTHM, +S1, +S2 Additional comments: Dressing on Xyphoid Process, Clean Dry and Intact. - GI/Abdominal Exam GI & Abdominal Exam: Soft, Normal Bowel Sounds. absent: Distended, Firm, Guarding, Rigid, Tenderness - Extremities Exam Extremities Exam: Full ROM, Normal Capillary Refill, Pedal Edema (nonpitting edema bilaterally). absent: Calf Tenderness - Back Exam Back Exam: NORMAL INSPECTION - Neurological Exam Neurological Exam: Alert, Awake - Psychiatric Exam Psychiatric exam: Normal Affect, Normal Mood - Skin Skin Exam: Dry, Normal Color, Warm Additional comments: Left upper arm thrombophlebitis with ice pack on it, minimal induration, no swelling, minimal tenderness Pulses 2+ distally, good capillary refill, sensation and motor function intact Assessment and Plan - Assessment and Plan (Free Text) Assessment: 62 F w/ PMhx of Afib & pacemaker (on eliquis at home) currently admitted to ICU for monitoring for weakness/ GI bleed, had episode of afib w/ RVR, large pericardial effusion s/p POD # 6 for pericardial window. Co-reg restarted, HR controlled. EGD planned for this afternoon. Plan: Pericardial Tamponade POD # 7 of pericardial Window ECHO (10/26/18): Normal LV Systolic Function, EF 55-60%, mild TR, Mild Pulm HTN, S mall loculated Ant. pericardial effusion, small-moderate loculated posterior pericardial effusion. There are no echocardiographic indications of cardiac tamponade. Consults: CT Surgeon (Dr. Houston), Cardiology (Dr. Sultana), Hematology (Dr. Burgess) - All recs appreciated Pericardial Fluid, Gram Stain - Negative and no malignant cells. Meds: Carvedilol 3.125 PO BID Home Enalapril 20mg PO Daily (Held due to Hypotension) Pericarditis Etiology Unknown ID Consult (Dr. Perez), Recs Appreciated IZABELLA - NEGATIVE | RH - PENDING | CMV - POSITIVE IgG, Intermediate IgM | Coxackie A/B - PENDING | Echovirus-PENDING | Herpes - NEGATIVE | Lyme Disease - NEGATIVE | RPR - NEGATIVE | HIV 1 & 2 - NEGATIVE | TB (QFT) - Indeterminate (Likely Negative) AFB Culture - F/U | Fungus Culture - F/U A-fib w/ Pacemaker. Rate control w/ Carvedilol EKG (10/31/18): NSR with no acute ST/T wave changes. Meds: Carvedilol 3.125 PO BID Eliquis 5 mg PO BID (HELD, due to GI Bleed) Normocytic Anemia Likely iron def. Anemia 2/2 to chronic GI Blood loss Meds: Ferrlecit 125mg IV Daily for 8 doses (Started on 10/27/18) GI Bleed Stool Occult Blood (10/23/18) - POSITIVE Stool Occult Blood (10/30/18) - NEGATIVE Consults: Hematology (Dr. Burgess), GI (Dr. Mcrae/Fernando) - All recs appreciated HOLD Antiplatelets/AntiCoags. EGD Planned for 11/01/18. Meds: Protonix 40mg PO Left Upper Arm Superficial Plebitis: Left Anterior Upper Arm area superior to prior IV access site there is blanchable erythema and a hardness palpated Continue Ice Packs for 1 hour every 4 hours for now NO NSAIDS for now considering the workup for Anemia is pending F/U Venous Doppler Left Arm 11/01/18 to make sure that there is NO DVT Hypomagnesemia 1.6 today MgSulfate 1 g IVPB Will continue to monitor and replete as necessary UTI Patient is asymptomatic, no intervention. UA (10/25/18): POSITIVE Leuk Es, WBC, Urine Culture (10/26/18) - NEGATIVE Hypertension. Cardiology Consult (Dr. Sultana), Recs appreciated Meds: Carvedilol 3.125 PO BID Home Enalapril 20mg PO Daily (Held due to Hypotension) PPx: Protonix SCD's Compression stocking and elevation of lower extremities to decrease edema Chemical VTE proph Contraindicated due to GI Bleed HHD Objective - Vital Signs/Intake and Output Vital Signs (last 24 hours): Temp Pulse Resp BP Pulse Ox 99.5 F 74 21 121/53 L 98 11/01/18 20:00 11/01/18 20:00 11/01/18 20:00 11/01/18 20:00 11/01/18 20:00 Intake and Output: 11/01/18 11/02/18 18:59 06:59 Intake Total 425 Output Total 400 Balance 25 - Medications Medications: Current Medications Carvedilol (Coreg) 3.125 mg PO BID [facility] Last Admin: 11/01/18 17:10 Dose: 3.125 mg Ferric Sodium Gluconate Complex (Ferrlecit) 125 mg IVPB DAILY [facility] Stop: 11/04/18 10:01 Last Admin: 11/01/18 09:38 Dose: 125 mg Pantoprazole Sodium (Protonix Ec Tab) 40 mg PO DAILY [facility] Last Admin: 11/01/18 09:31 Dose: 40 mg - Labs Labs: 11/01/18 05:59 11/01/18 05:59 PT 14.8 SECONDS (9.7-12.2) H 11/01/18 10:05 INR 1.4 11/01/18 10:05 APTT 27 SECONDS (21-34) 10/29/18 08:37"
[2018-11-02 06:18] LABS: BASO # 0.1 K/uL (0.0-0.2); BASO % 0.9 % (0.0-2.0); EOS # 0.1 K/uL (0.0-0.7); EOS % 1.2 % (0.0-4.0); HEMOGLOBIN 10.1 g/dL (11.0-16.0); LYMPH # 1.7 K/uL (1.0-4.3); LYMPH % 17.8 % (20.0-40.0); MEAN CELL VOLUME 84.3 fL (81.0-99.0); MEAN CORPUSCULAR HEMOGLOBIN 26.1 pg (27.0-31.0); MEAN CORPUSCULAR HGB CONC 30.9 g/dL (33.0-37.0); MEAN PLATELET VOLUME 7.9 fL (7.2-11.7); MONO # 1.3 K/uL (0.0-0.8); MONO % 13.6 % (0.0-10.0); NEUT # 6.2 K/uL (1.8-7.0); NEUT % 66.5 % (50.0-75.0); RBC 3.89 Mil/uL (3.80-5.20); RED CELL DISTRIBUTION WIDTH 21.9 % (11.5-14.5); WHITE BLOOD COUNT 9.4 K/uL (4.8-10.8)
[2018-11-02 06:38] LABS: ALB/GLOB RATIO 1.1 (1.0-2.1); ALBUMIN 2.9 g/dL (3.5-5.0); ALT/SGPT 23 U/L (9-52); AST/SGOT 38 U/L (14-36); BLOOD UREA NITROGEN 11 mg/dL (7-17); CALCIUM 8.3 mg/dl (8.6-10.4); GFR NON-AFRICAN AMERICAN > 60
--- NOTE | 2018-11-02 07:36 | CP.PCM.PN ---
<Dillon Zuñiga - Last Filed: 11/02/18 17:17> Subjective - Date & Time of Evaluation Date of Evaluation: 11/02/18 Time of Evaluation: 13:17 - Subjective Subjective: Medicine progress note for Dr. Reardon Patient seen and examined. Pt reports that the pain in he left upper arm is improving as well. She has no complaints at this time. Denies fever, chills, chest pain, SOB, abdominal pain, nausea, vomiting, hematochezia, melena, changes in bowel habits, or urinary symptoms. Objective - Vital Signs/Intake and Output Vital Signs (last 24 hours): Temp Pulse Resp BP Pulse Ox 99 F 70 16 104/64 97 11/02/18 04:00 11/02/18 04:00 11/02/18 04:00 11/02/18 04:00 11/02/18 04:00 Intake and Output: 11/02/18 11/02/18 06:59 18:59 Intake Total 500 Output Total 1150 Balance -650 - Medications Medications: Current Medications Carvedilol (Coreg) 3.125 mg PO BID [facility] Last Admin: 11/01/18 17:10 Dose: 3.125 mg Ferric Sodium Gluconate Complex (Ferrlecit) 125 mg IVPB DAILY [facility] Stop: 11/04/18 10:01 Last Admin: 11/01/18 09:38 Dose: 125 mg Pantoprazole Sodium (Protonix Ec Tab) 40 mg PO DAILY [facility] Last Admin: 11/01/18 09:31 Dose: 40 mg - Labs Labs: 11/02/18 06:00 11/02/18 06:00 PT 14.8 SECONDS (9.7-12.2) H 11/01/18 10:05 INR 1.4 11/01/18 10:05 APTT 27 SECONDS (21-34) 10/29/18 08:37 - Additional Findings Additional findings: - Constitutional Appears: Non-toxic, No Acute Distress - Head Exam Head Exam: ATRAUMATIC, NORMAL INSPECTION - Eye Exam Eye Exam: EOMI, Normal appearance - ENT Exam ENT Exam: Mucous Membranes Moist - Respiratory Exam Respiratory Exam: Clear to Ausculation Bilateral. absent: Decreased Breath Sounds, Rales, Rhonchi, Wheezes, Stridor - Cardiovascular Exam Cardiovascular Exam: REGULAR RHYTHM, +S1, +S2 Additional comments: Dressing on Xyphoid Process, Clean Dry and Intact. No active bleeding, no hematoma - GI/Abdominal Exam GI & Abdominal Exam: Soft, Normal Bowel Sounds. absent: Distended, Firm, Guarding, Rigid, Tenderness - Extremities Exam Extremities Exam: Full ROM, Normal Capillary Refill. absent: Calf Tenderness, pedal edema - Back Exam Back Exam: NORMAL INSPECTION - Neurological Exam Neurological Exam: Alert, Awake - Psychiatric Exam Psychiatric exam: Normal Affect, Normal Mood - Skin Skin Exam: Dry, Normal Color, Warm Additional comments: Left upper arm thrombophlebitis with ice pack on it, minimal induration, no swelling, minimal erythema, nontender Pulses 2+ distally, good capillary refill, sensation and motor function intact Assessment and Plan - Assessment and Plan (Free Text) Assessment: 62 F w/ PMhx of Afib & pacemaker (on eliquis at home) currently admitted to ICU for monitoring for weakness/ GI bleed, had episode of afib w/ RVR, large pericardial effusion s/p POD # 8 for pericardial window. Co-reg restarted, HR co ntrolled. Pt with anemia, normocytic, r/o GI bleed. Colonoscopy planned for tomorrow. Plan: Pericardial Tamponade POD # 8 of pericardial Window ECHO (10/26/18): Normal LV Systolic Function, EF 55-60%, mild TR, Mild Pulm HTN, Small loculated Ant. pericardial effusion, small-moderate loculated posterior pericardial effusion. There are no echocardiographic indications of cardiac tamponade. Consults: CT Surgeon (Dr. Houston), Cardiology (Dr. Sultana), Hematology (Dr. Burgess) - All recs appreciated Pericardial Fluid, Gram Stain - Negative and no malignant cells. Meds: Carvedilol 3.125 PO BID Home Enalapril 20mg PO Daily (Held due to Hypotension) Pericarditis Etiology Unknown ID Consult (Dr. Perez), Recs Appreciated CMV - POSITIVE IgG, Intermediate IgM A-fib w/ Pacemaker. Rate control w/ Carvedilol EKG (10/31/18): NSR with no acute ST/T wave changes. Meds: Carvedilol 3.125 PO BID Eliquis 5 mg PO BID (HELD, due to GI Bleed) Cardiology, Dr. Sultana, consulted. No anticoagulation/ASA until GI work up is complete. Pt to have Watchman Procedure done outpt Normocytic Anemia Likely iron def. Anemia 2/2 to chronic GI Blood loss Meds: Ferrlecit 125mg IV Daily for 8 doses (Started on 10/27/18) GI Bleed Stool Occult Blood (10/23/18) - POSITIVE Stool Occult Blood (10/30/18) - NEGATIVE Consults: Hematology (Dr. Burgess), GI (Dr. Mcrae/Fernando) - All recs appreciated HOLD Antiplatelets/AntiCoags. EGD showed gastritis, biopsied, and normal duodenum which was also biopsied. Advance diet as tolerated as per GI. Colonoscopy to be done tomorrow (11/03) as per Dr. Mcrae Meds: Protonix 40mg PO Left Upper Arm Superficial Plebitis: Left Anterior Upper Arm area superior to prior IV access site there is blanchable erythema and a hardness palpated Continue Ice Packs for 1 hour every 4 hours for now NO NSAIDS for now considering the workup for Anemia is pending Prelim Venous Doppler Left Arm 11/01/18 shows left cephalic vein thro mbophlebitis. F/u official report Hypomagnesemia 1.6 today MgSulfate 2 g IVPB Will continue to monitor and replete as necessary UTI Patient is asymptomatic, no intervention. UA (10/25/18): POSITIVE Leuk Es, WBC, Urine Culture (10/26/18) - NEGATIVE Hypertension. Cardiology Consult (Dr. Sultana), Recs appreciated Meds: Carvedilol 3.125 PO BID Home Enalapril 20mg PO Daily (Held due to Hypotension) PPx: Protonix SCD's Compression stocking and elevation of lower extremities to decrease edema Chemical VTE proph Contraindicated due to GI Bleed CLD <Leonel Reardon - Last Filed: 11/02/18 17:26> Objective - Vital Signs/Intake and Output Vital Signs (last 24 hours): Temp Pulse Resp BP Pulse Ox 101.2 F H 73 20 113/57 L 97 11/02/18 16:00 11/02/18 16:00 11/02/18 16:00 11/02/18 16:00 11/02/18 16:00 Intake and Output: 11/02/18 11/02/18 06:59 18:59 Intake Total 1280 Output Total 2080 Balance -800 - Medications Medications: Current Medications Carvedilol (Coreg) 3.125 mg PO BID [facility] Last Admin: 11/02/18 10:37 Dose: 3.125 mg Ferric Sodium Gluconate Complex (Ferrlecit) 125 mg IVPB DAILY [facility] Stop: 11/04/18 10:01 Last Admin: 11/02/18 10:36 Dose: 125 mg Pantoprazole Sodium (Protonix Ec Tab) 40 mg PO DAILY [facility] Last Admin: 11/02/18 10:37 Dose: 40 mg Polyethylene Glycol/Electrolytes (Golytely) 4,000 ml PO ONCE ONE Stop: 11/02/18 19:01 - Labs Labs: 11/02/18 06:00 11/02/18 06:00 PT 14.8 SECONDS (9.7-12.2) H 11/01/18 10:05 INR 1.4 11/01/18 10:05 APTT 27 SECONDS (21-34) 10/29/18 08:37 Attending/Attestation - Attestation I have personally seen and examined this patient.: Yes I have fully participated in the care of the patient.: Yes I have reviewed all pertinent clinical information, including history, physical exam and plan: Yes
[2018-11-02] MEDS: Ferric Sodium Gluconat Complex 62.5 mg/5 ml Vial IVPB SCH (10:36)
[2018-11-02] MEDS: Pantoprazole 40 mg EC Tab PO SCH (10:37)
[2018-11-02] MEDS: Magnesium Sulfate 1 gm in D5W 1 GM/100 ML BAG IVPB SCH ×2 (14:02→15:02)
--- NOTE | 2018-11-02 14:43 | CP.PCM.PN ---
Subjective - Date & Time of Evaluation Date of Evaluation: 11/02/18 Time of Evaluation: 14:40 - Subjective Subjective: f/u anemia, GI bleed. Hb stabkle. Denies fever, Cp, SOB, LARA, abd pain, RB, melena, SZ Objective - Vital Signs/Intake and Output Vital Signs (last 24 hours): Temp Pulse Resp BP Pulse Ox 98.9 F 78 20 104/64 97 11/02/18 12:00 11/02/18 12:00 11/02/18 12:00 11/02/18 04:00 11/02/18 08:00 Intake and Output: 11/02/18 11/02/18 06:59 18:59 Intake Total 1180 Output Total 1730 Balance -550 - Medications Medications: Current Medications Carvedilol (Coreg) 3.125 mg PO BID [facility] Last Admin: 11/02/18 10:37 Dose: 3.125 mg Ferric Sodium Gluconate Complex (Ferrlecit) 125 mg IVPB DAILY [facility] Stop: 11/04/18 10:01 Last Admin: 11/02/18 10:36 Dose: 125 mg Pantoprazole Sodium (Protonix Ec Tab) 40 mg PO DAILY [facility] Last Admin: 11/02/18 10:37 Dose: 40 mg Polyethylene Glycol/Electrolytes (Golytely) 4,000 ml PO ONCE ONE Stop: 11/02/18 18:01 - Labs Labs: 11/02/18 06:00 11/02/18 06:00 PT 14.8 SECONDS (9.7-12.2) H 11/01/18 10:05 INR 1.4 11/01/18 10:05 APTT 27 SECONDS (21-34) 10/29/18 08:37 - Constitutional Appears: Non-toxic - Respiratory Exam Respiratory Exam: Clear to Ausculation Bilateral - Cardiovascular Exam Cardiovascular Exam: RRR - GI/Abdominal Exam GI & Abdominal Exam: Soft, Normal Bowel Sounds. absent: Tenderness - Extremities Exam Extremities Exam: absent: Calf Tenderness - Neurological Exam Neurological Exam: Alert, Awake, Oriented x3 Assessment and Plan (1) Coagulopathy Assessment & Plan: improving Status: Acute (2) Symptomatic anemia Assessment & Plan: Consider GI bleed. EGD- done. Check for colon lesion. Dr Sultana called today- requests colonosocpy and cleared for colonoscopy. Status: Acute (3) Atrial fibrillation Status: Acute (4) Hypertension Status: Chronic (5) Pacemaker Status: Acute (6) Pericardial effusion Status: Acute
[2018-11-02] MEDS ORDERED: Peg-Electrolyte Oral Soln 4L (Golytely) PO ONE (19:00)
--- NOTE | 2018-11-02 23:24 | CP.PCM.PN ---
Subjective - Date & Time of Evaluation Date of Evaluation: 11/02/18 Time of Evaluation: 12:00 - Subjective Subjective: Feeling better, at bedside. Objective - Vital Signs/Intake and Output Vital Signs (last 24 hours): Temp Pulse Resp BP Pulse Ox 99.8 F H 70 20 131/56 L 96 11/02/18 20:00 11/02/18 20:00 11/02/18 20:00 11/02/18 20:00 11/02/18 20:00 Intake and Output: 11/02/18 11/03/18 18:59 06:59 Intake Total 1680 Output Total 2560 Balance -880 - Medications Medications: Current Medications Carvedilol (Coreg) 3.125 mg PO BID [facility] Last Admin: 11/02/18 18:08 Dose: 3.125 mg Ferric Sodium Gluconate Complex (Ferrlecit) 125 mg IVPB DAILY [facility] Stop: 11/04/18 10:01 Last Admin: 11/02/18 10:36 Dose: 125 mg Pantoprazole Sodium (Protonix Ec Tab) 40 mg PO DAILY [facility] Last Admin: 11/02/18 10:37 Dose: 40 mg - Labs Labs: 11/02/18 06:00 11/02/18 06:00 PT 14.8 SECONDS (9.7-12.2) H 11/01/18 10:05 INR 1.4 11/01/18 10:05 APTT 27 SECONDS (21-34) 10/29/18 08:37 - Head Exam Head Exam: ATRAUMATIC - Eye Exam Eye Exam: Normal appearance - ENT Exam ENT Exam: Mucous Membranes Dry - Respiratory Exam Respiratory Exam: NORMAL BREATHING PATTERN - Cardiovascular Exam Cardiovascular Exam: +S1, +S2 - GI/Abdominal Exam GI & Abdominal Exam: Normal Bowel Sounds Assessment and Plan (1) Platelet dysfunction Assessment & Plan: resolving likely secondary to prior anticoagulation Status: Acute (2) Coagulopathy Assessment & Plan: improved prior anticoagualation nutritional component Status: Acute (3) Anemia Assessment & Plan: H/H improving iron deficiency on IV iron s/p EGD - gastritis, for colonoscopy likely chronic GI blood loss transfusion support Status: Acute (4) Pericardial effusion Assessment & Plan: hemorrhagic anticoagulation on hold cytology negative for malignancy Status: Acute
--- NOTE | 2018-11-02 23:54 | CP.PCM.PN ---
Subjective - Date & Time of Evaluation Date of Evaluation: 11/02/18 Time of Evaluation: 13:05 - Subjective Subjective: Patient seen and evaluated denies chest pain and dyspnea For Colonoscopy tomorrow Patient seen and examined. Denies chest pain and dyspnea Objective - Vital Signs/Intake and Output Vital Signs (last 24 hours): Temp Pulse Resp BP Pulse Ox 98.5 F 79 20 107/50 L 95 11/03/18 04:00 11/03/18 00:00 11/03/18 04:00 11/03/18 00:00 11/03/18 04:00 Intake and Output: 11/03/18 11/03/18 06:59 18:59 Intake Total 3800 Output Total 700 Balance 3100 - Medications Medications: Current Medications Carvedilol (Coreg) 3.125 mg PO BID [facility] Last Admin: 11/02/18 18:08 Dose: 3.125 mg Ferric Sodium Gluconate Complex (Ferrlecit) 125 mg IVPB DAILY [facility] Stop: 11/04/18 10:01 Last Admin: 11/02/18 10:36 Dose: 125 mg Pantoprazole Sodium (Protonix Ec Tab) 40 mg PO DAILY [facility] Last Admin: 11/02/18 10:37 Dose: 40 mg - Labs Labs: 11/02/18 06:00 11/02/18 06:00 PT 14.8 SECONDS (9.7-12.2) H 11/01/18 10:05 INR 1.4 11/01/18 10:05 APTT 27 SECONDS (21-34) 10/29/18 08:37 - Additional Findings Additional findings: - Constitutional Appears: Non-toxic, No Acute Distress - Head Exam Head Exam: ATRAUMATIC, NORMAL INSPECTION - Eye Exam Eye Exam: EOMI, Normal appearance - ENT Exam ENT Exam: Mucous Membranes Moist - Respiratory Exam Respiratory Exam: Clear to Ausculation Bilateral. absent: Decreased Breath Sounds, Rales, Rhonchi, Wheezes, Stridor - Cardiovascular Exam Cardiovascular Exam: REGULAR RHYTHM, +S1, +S2 Additional comments: Dressing on Xyphoid Process, Clean Dry and Intact. No active bleeding, no hematoma - GI/Abdominal Exam GI & Abdominal Exam: Soft, Normal Bowel Sounds. absent: Distended, Firm, Guarding, Rigid, Tenderness - Extremities Exam Extremities Exam: Full ROM, Normal Capillary Refill. absent: Calf Tenderness, pedal edema - Back Exam Back Exam: NORMAL INSPECTION - Neurological Exam Neurological Exam: Alert, Awake - Psychiatric Exam Psychiatric exam: Normal Affect, Normal Mood - Skin Skin Exam: Dry, Normal Color, Warm Additional comments: Left upper arm thrombophlebitis with minimal induration, no swelling, no erythema, minimally tender Pulses 2+ distally, good capillary refill, sensation and motor function intact Assessment and Plan - Assessment and Plan (Free Text) Assessment: 62 F w/ PMhx of Afib & pacemaker (on eliquis at home) currently admitted to ICU for monitoring for weakness/ GI bleed, had episode of afib w/ RVR, large pericardial effusion s/p POD # 9 for pericardial window. Co-reg restarted, HR controlled. Pt with anemia, normocytic, no GI bleeding noted on EGD or colonoscopy. Plan: Pericardial Tamponade POD # 9 of pericardial Window 10/25/18 ECHO (10/26/18): Normal LV Systolic Function, EF 55-60%, mild TR, Mild Pulm HTN, Small loculated Ant. pericardial effusion, small-moderate loculated posterior pericardial effusion. There are no echocardiographic indications of cardiac tamponade. Consults: CT Surgeon (Dr. Houston), Cardiology (Dr. Sultana), Hematology (Dr. Burgess) - All recs appreciated Pericardial Fluid, Gram Stain - Negative and no malignant cells. Meds: Carvedilol 3.125 PO BID Home Enalapril 20mg PO Daily (Held due to Hypotension) Pericarditis Etiology Unknown ID Consult (Dr. Perez), Recs Appreciated CMV - POSITIVE IgG, Intermediate IgM A-fib w/ Pacemaker. Rate control w/ Carvedilol EKG (10/31/18): NSR with no acute ST/T wave changes. Meds: Carvedilol 3.125 PO BID Eliquis 5 mg PO BID (HELD, due to GI Bleed) Cardiology, Dr. Sultana, consulted. No anticoagulation/ASA at this time. F/u recs Pt to have Watchman Procedure done outpt Normocytic Anemia Likely iron def. Anemia 2/2 to chronic GI Blood loss Meds: Ferrlecit 125mg IV Daily for 8 doses (Started on 10/27/18) GI Bleed Stool Occult Blood (10/23/18) - POSITIVE Stool Occult Blood (10/30/18) - NEGATIVE Consults: Hematology (Dr. Burgess), GI (Dr. Mcrae/Fernando) - All recs appreciated HOLD Antiplatelets/AntiCoags. EGD showed gastritis, biopsied, and normal duodenum which was also biopsied. Biopsy results: positvie for Mild chronic active gastritis in antrum. Colonoscopy showed nonbleeding internal hemorrhoids. No specimens collected. Entire examined colon is normal. Advance diet as tolerated. Repeat in 10 years. Meds: Protonix 40mg PO Left Upper Arm Superficial Plebitis: Continue Ice Packs for 1 hour every 4 hours NO NSAIDS for now considering the workup for Anemia is pending Venous Doppler Left Arm 11/01/18 shows left cephalic vein thrombophlebitis. No evidence of DVT. Hypomagnesemia 1.7 today MgSulfate 2 g IVPB Will continue to monitor and replete as necessary UTI Patient is asymptomatic, no intervention. UA (10/25/18): POSITIVE Leuk Es, WBC, Urine Culture (10/26/18) - NEGATIVE Hypertension. Cardiology Consult (Dr. Sultana), Recs appreciated Meds: Carvedilol 3.125 PO BID Home Enalapril 20mg PO Daily (Held due to Hypotension) PPx: Protonix SCD's Compression stocking and elevation of lower extremities to decrease edema, improving Chemical VTE proph Contraindicated due to GI Bleed HHD Objective - Vital Signs/Intake and Output Vital Signs (last 24 hours): Temp Pulse Resp BP Pulse Ox 99.8 F H 70 20 131/56 L 96 11/02/18 20:00 11/02/18 20:00 11/02/18 20:00 11/02/18 20:00 11/02/18 20:00 Intake and Output: 11/02/18 11/03/18 18:59 06:59 Intake Total 1680 Output Total 2560 Balance -880 - Medications Medications: Current Medications Carvedilol (Coreg) 3.125 mg PO BID [facility] Last Admin: 11/02/18 18:08 Dose: 3.125 mg Ferric Sodium Gluconate Complex (Ferrlecit) 125 mg IVPB DAILY [facility] Stop: 11/04/18 10:01 Last Admin: 11/02/18 10:36 Dose: 125 mg Pantoprazole Sodium (Protonix Ec Tab) 40 mg PO DAILY [facility] Last Admin: 11/02/18 10:37 Dose: 40 mg - Labs Labs: 11/02/18 06:00 11/02/18 06:00 PT 14.8 SECONDS (9.7-12.2) H 11/01/18 10:05 INR 1.4 11/01/18 10:05 APTT 27 SECONDS (21-34) 10/29/18 08:37
--- NOTE | 2018-11-03 07:52 | CP.PCM.PN ---
Subjective - Date & Time of Evaluation Date of Evaluation: 11/03/18 Time of Evaluation: 13:00 - Subjective Subjective: Medicine progress note for Dr. Reardon Patient seen and examined. Pt reports that the pain in he left upper arm is almost resolved, only minimal pain at this time. She has no other complaints at this time. Denies fever, chills, chest pain, SOB, abdominal pain, nausea, vomiting, hematochezia, melena, changes in bowel habits, or urinary symptoms. Objective - Vital Signs/Intake and Output Vital Signs (last 24 hours): Temp Pulse Resp BP Pulse Ox 98.5 F 79 20 107/50 L 95 11/03/18 04:00 11/03/18 00:00 11/03/18 04:00 11/03/18 00:00 11/03/18 04:00 Intake and Output: 11/03/18 11/03/18 06:59 18:59 Intake Total 3800 Output Total 700 Balance 3100 - Medications Medications: Current Medications Carvedilol (Coreg) 3.125 mg PO BID [facility] Last Admin: 11/02/18 18:08 Dose: 3.125 mg Ferric Sodium Gluconate Complex (Ferrlecit) 125 mg IVPB DAILY [facility] Stop: 11/04/18 10:01 Last Admin: 11/02/18 10:36 Dose: 125 mg Pantoprazole Sodium (Protonix Ec Tab) 40 mg PO DAILY [facility] Last Admin: 11/02/18 10:37 Dose: 40 mg - Labs Labs: 11/02/18 06:00 11/02/18 06:00 PT 14.8 SECONDS (9.7-12.2) H 11/01/18 10:05 INR 1.4 11/01/18 10:05 APTT 27 SECONDS (21-34) 10/29/18 08:37 - Additional Findings Additional findings: - Constitutional Appears: Non-toxic, No Acute Distress - Head Exam Head Exam: ATRAUMATIC, NORMAL INSPECTION - Eye Exam Eye Exam: EOMI, Normal appearance - ENT Exam ENT Exam: Mucous Membranes Moist - Respiratory Exam Respiratory Exam: Clear to Ausculation Bilateral. absent: Decreased Breath Sounds, Rales, Rhonchi, Wheezes, Stridor - Cardiovascular Exam Cardiovascular Exam: REGULAR RHYTHM, +S1, +S2 Additional comments: Dressing on Xyphoid Process, Clean Dry and Intact. No active bleeding, no hematoma - GI/Abdominal Exam GI & Abdominal Exam: Soft, Normal Bowel Sounds. absent: Distended, Firm, Guarding, Rigid, Tenderness - Extremities Exam Extremities Exam: Full ROM, Normal Capillary Refill. absent: Calf Tenderness, pedal edema - Back Exam Back Exam: NORMAL INSPECTION - Neurological Exam Neurological Exam: Alert, Awake - Psychiatric Exam Psychiatric exam: Normal Affect, Normal Mood - Skin Skin Exam: Dry, Normal Color, Warm Additional comments: Left upper arm thrombophlebitis with minimal induration, no swelling, no erythema, minimally tender Pulses 2+ distally, good capillary refill, sensation and motor function intact Assessment and Plan - Assessment and Plan (Free Text) Assessment: 62 F w/ PMhx of Afib & pacemaker (on eliquis at home) currently admitted to ICU for monitoring for weakness/ GI bleed, had episode of afib w/ RVR, large pericardial effusion s/p POD # 9 for pericardial window. Co-reg restarted, HR controlled. Pt with anemia, normocytic, no GI bleeding noted on EGD or colonoscopy. Plan: Pericardial Tamponade POD # 9 of pericardial Window 10/25/18 ECHO (10/26/18): Normal LV Systolic Function, EF 55-60%, mild TR, Mild Pulm HTN, Small loculated Ant. pericardial effusion, small-moderate loculated posterior pericardial effusion. There are no echocardiographic indications of cardiac tamponade. Consults: CT Surgeon (Dr. Houston), Cardiology (Dr. Sultana), Hematology (Dr. Burgess) - All recs appreciated Pericardial Fluid, Gram Stain - Negative and no malignant cells. Meds: Carvedilol 3.125 PO BID Home Enalapril 20mg PO Daily (Held due to Hypotension) Pericarditis Etiology Unknown ID Consult (Dr. Perez), Recs Appreciated CMV - POSITIVE IgG, Intermediate IgM A-fib w/ Pacemaker. Rate control w/ Carvedilol EKG (10/31/18): NSR with no acute ST/T wave changes. Meds: Carvedilol 3.125 PO BID Eliquis 5 mg PO BID (HELD, due to GI Bleed) Cardiology, Dr. Sultana, consulted. No anticoagulation/ASA at this time. F/u recs Pt to have Watchman Procedure done outpt Normocytic Anemia Likely iron def. Anemia 2/2 to chronic GI Blood loss Meds: Ferrlecit 125mg IV Daily for 8 doses (Started on 10/27/18) GI Bleed Stool Occult Blood (10/23/18) - POSITIVE Stool Occult Blood (10/30/18) - NEGATIVE Consults: Hematology (Dr. Burgess), GI (Dr. Mcrae/Fernando) - All recs appreciated HOLD Antiplatelets/AntiCoags. EGD showed gastritis, biopsied, and normal duodenum which was also biopsied. Biopsy results: positvie for Mild chronic active gastritis in antrum. Colonoscopy showed nonbleeding internal hemorrhoids. No specimens collected. Entire examined colon is normal. Advance diet as tolerated. Repeat in 10 years. Meds: Protonix 40mg PO Left Upper Arm Superficial Plebitis: Continue Ice Packs for 1 hour every 4 hours NO NSAIDS for now considering the workup for Anemia is pending Venous Doppler Left Arm 11/01/18 shows left cephalic vein thrombophlebitis. No evidence of DVT. Hypomagnesemia 1.7 today MgSulfate 2 g IVPB Will continue to monitor and replete as necessary UTI Patient is asymptomatic, no intervention. UA (10/25/18): POSITIVE Leuk Es, WBC, Urine Culture (10/26/18) - NEGATIVE Hypertension. Cardiology Consult (Dr. Sultana), Recs appreciated Meds: Carvedilol 3.125 PO BID Home Enalapril 20mg PO Daily (Held due to Hypotension) PPx: Protonix SCD's Compression stocking and elevation of lower extremities to decrease edema, improving Chemical VTE proph Contraindicated due to GI Bleed HHD
[2018-11-03] MEDS: Ferric Sodium Gluconat Complex 62.5 mg/5 ml Vial IVPB SCH (09:04)
[2018-11-03] MEDS ORDERED: Sodium Chloride 0.9% 1,000 ML IV ONE (12:45)
[2018-11-03] MEDS ORDERED: Propofol 10 mg/ml Inj (20 ML) ONE (12:50)
--- NOTE | 2018-11-03 13:31 | VASCLAB ---
Date of service: 11/02/2018 PROCEDURE: Left Upper Extremity Venous Duplex Exam HISTORY: Pain PRIORS: None. TECHNIQUE: Left upper extremity, internal jugular, subclavian, axillary, brachial, ulnar, radial, basilic and upper cephalic veins were evaluated. Flow was assessed with color Doppler, compressibility, assessment of phasic flow and augmentation response. Report prepared by JHOANA Carranza FINDINGS: LEFT: 1. Internal Jugular: 1.1. Compressibility - Fully compressible: Thrombus - None : Flow - Phasic: Augmentation -Normal: Reflux - None. 2. Subclavian: 2.1. Compressibility - Fully compressible: Thrombus - None : Flow - Phasic: Augmentation -Normal: Reflux - None. 3. Axillary: 3.1. Compressibility - Fully compressible: Thrombus - None : Flow - Phasic: Augmentation -Normal: Reflux - None. 4. Brachial: 4.1. Compressibility - Fully compressible: Thrombus - None: Flow - Phasic: Augmentation -Normal: Reflux - None. 5. Ulnar: 5.1. Compressibility - Fully compressible: Thrombus - None: Flow - Phasic: Augmentation -Normal: Reflux - None. 6. Radial: 6.1. Compressibility - Fully compressible: Thrombus - None: Flow - Phasic: Augmentation - Normal: Reflux - None. 7. Cephalic: 7.1. Compressibility - Incompressible: Thrombus - Acute: Flow - Absent 8. Basilic: 8.1. Compressibility - Fully compressible: Thrombus - None: Flow - Phasic: Augmentation -Normal: Reflux - None. OTHER FINDINGS: Normal venous flow noted in the right internal jugular and right subclavian veins. IMPRESSION: Left: Superficial phlebitis of the left upper arm cephalic vein. No evidence of DEEP vein thrombosis of the left upper extremity. Findings were given to ORACLE PROGRAMMERSANDRA Schumacher at 8:44 a.m.
[2018-11-03 17:13] LABS: BASO # 0.1 K/uL (0.0-0.2); BASO % 1.3 % (0.0-2.0); EOS # 0.1 K/uL (0.0-0.7); EOS % 1.6 % (0.0-4.0); HEMOGLOBIN 11.3 g/dL (11.0-16.0); LYMPH # 1.3 K/uL (1.0-4.3); LYMPH % 19.3 % (20.0-40.0); MEAN CELL VOLUME 85.6 fL (81.0-99.0); MEAN CORPUSCULAR HEMOGLOBIN 26.1 pg (27.0-31.0); MEAN CORPUSCULAR HGB CONC 30.5 g/dL (33.0-37.0); MEAN PLATELET VOLUME 7.7 fL (7.2-11.7); MONO # 0.9 K/uL (0.0-0.8); MONO % 12.6 % (0.0-10.0); NEUT # 4.5 K/uL (1.8-7.0); NEUT % 65.2 % (50.0-75.0); NRBC % 0.1 % (0.0-2.0); RBC 4.33 Mil/uL (3.80-5.20); RED CELL DISTRIBUTION WIDTH 23.3 % (11.5-14.5)
[2018-11-03 17:27] LABS: ALB/GLOB RATIO 0.9 (1.0-2.1); ALBUMIN 3.2 g/dL (3.5-5.0); ALT/SGPT 22 U/L (9-52); AST/SGOT 41 U/L (14-36); BLOOD UREA NITROGEN 7 mg/dL (7-17); CALCIUM 8.8 mg/dl (8.6-10.4); GFR NON-AFRICAN AMERICAN > 60
[2018-11-03] MEDS: Pantoprazole 40 mg EC Tab PO SCH (18:21)
[2018-11-03] MEDS: Magnesium Sulfate 1 gm in D5W 1 GM/100 ML BAG IVPB SCH ×2 (19:24→19:54)
--- NOTE | 2018-11-03 22:10 | CP.PCM.PN ---
Subjective - Date & Time of Evaluation Date of Evaluation: 11/03/18 Time of Evaluation: 18:00 - Subjective Subjective: Feeling better Objective - Vital Signs/Intake and Output Vital Signs (last 24 hours): Temp Pulse Resp BP Pulse Ox 98.5 F 70 20 126/71 98 11/03/18 15:00 11/03/18 15:00 11/03/18 15:00 11/03/18 15:00 11/03/18 15:00 Intake and Output: 11/03/18 11/04/18 18:59 06:59 Intake Total 100 Output Total 300 Balance -200 - Medications Medications: Current Medications Carvedilol (Coreg) 3.125 mg PO BID [facility] Last Admin: 11/03/18 18:21 Dose: 3.125 mg Ferric Sodium Gluconate Complex (Ferrlecit) 125 mg IVPB DAILY [facility] Stop: 11/04/18 10:01 Last Admin: 11/03/18 09:04 Dose: 125 mg Pantoprazole Sodium (Protonix Ec Tab) 40 mg PO DAILY [facility] Last Admin: 11/03/18 18:21 Dose: 40 mg - Labs Labs: 11/03/18 17:10 11/03/18 17:10 PT 14.8 SECONDS (9.7-12.2) H 11/01/18 10:05 INR 1.4 11/01/18 10:05 APTT 27 SECONDS (21-34) 10/29/18 08:37 - Head Exam Head Exam: ATRAUMATIC - Eye Exam Eye Exam: Normal appearance - ENT Exam ENT Exam: Mucous Membranes Dry - Respiratory Exam Respiratory Exam: NORMAL BREATHING PATTERN - Cardiovascular Exam Cardiovascular Exam: +S1, +S2 - GI/Abdominal Exam GI & Abdominal Exam: Normal Bowel Sounds Assessment and Plan (1) Platelet dysfunction Assessment & Plan: resolving likely secondary to prior anticoagulation Status: Acute (2) Coagulopathy Assessment & Plan: improved prior anticoagualation nutritional component Status: Acute (3) Anemia Assessment & Plan: H/H improving iron deficiency on IV iron s/p EGD - gastritis, for colonoscopy likely chronic GI blood loss transfusion support Status: Acute (4) Pericardial effusion Assessment & Plan: hemorrhagic anticoagulation on hold cytology negative for malignancy Status: Acute
--- NOTE | 2018-11-03 23:04 | CP.PCM.PN ---
Subjective - Date & Time of Evaluation Date of Evaluation: 11/03/18 Time of Evaluation: 18:30 - Subjective Subjective: Patient seen and examined. Denies chest pain and dyspnea Objective - Vital Signs/Intake and Output Vital Signs (last 24 hours): Temp Pulse Resp BP Pulse Ox 98.5 F 79 20 107/50 L 95 11/03/18 04:00 11/03/18 00:00 11/03/18 04:00 11/03/18 00:00 11/03/18 04:00 Intake and Output: 11/03/18 11/03/18 06:59 18:59 Intake Total 3800 Output Total 700 Balance 3100 - Medications Medications: Current Medications Carvedilol (Coreg) 3.125 mg PO BID [facility] Last Admin: 11/02/18 18:08 Dose: 3.125 mg Ferric Sodium Gluconate Complex (Ferrlecit) 125 mg IVPB DAILY [facility] Stop: 11/04/18 10:01 Last Admin: 11/02/18 10:36 Dose: 125 mg Pantoprazole Sodium (Protonix Ec Tab) 40 mg PO DAILY [facility] Last Admin: 11/02/18 10:37 Dose: 40 mg - Labs Labs: 11/02/18 06:00 11/02/18 06:00 PT 14.8 SECONDS (9.7-12.2) H 11/01/18 10:05 INR 1.4 11/01/18 10:05 APTT 27 SECONDS (21-34) 10/29/18 08:37 - Additional Findings Additional findings: - Constitutional Appears: Non-toxic, No Acute Distress - Head Exam Head Exam: ATRAUMATIC, NORMAL INSPECTION - Eye Exam Eye Exam: EOMI, Normal appearance - ENT Exam ENT Exam: Mucous Membranes Moist - Respiratory Exam Respiratory Exam: Clear to Ausculation Bilateral. absent: Decreased Breath Sounds, Rales, Rhonchi, Wheezes, Stridor - Cardiovascular Exam Cardiovascular Exam: REGULAR RHYTHM, +S1, +S2 Additional comments: Dressing on Xyphoid Process, Clean Dry and Intact. No active bleeding, no hematoma - GI/Abdominal Exam GI & Abdominal Exam: Soft, Normal Bowel Sounds. absent: Distended, Firm, Guarding, Rigid, Tenderness - Extremities Exam Extremities Exam: Full ROM, Normal Capillary Refill. absent: Calf Tenderness, pe jonny edema - Back Exam Back Exam: NORMAL INSPECTION - Neurological Exam Neurological Exam: Alert, Awake - Psychiatric Exam Psychiatric exam: Normal Affect, Normal Mood - Skin Skin Exam: Dry, Normal Color, Warm Additional comments: Left upper arm thrombophlebitis with minimal induration, no swelling, no erythema, minimally tender Pulses 2+ distally, good capillary refill, sensation and motor function intact Assessment and Plan - Assessment and Plan (Free Text) Assessment: 62 F w/ PMhx of Afib & pacemaker (on eliquis at home) currently admitted to ICU for monitoring for weakness/ GI bleed, had episode of afib w/ RVR, large pericardial effusion s/p POD # 9 for pericardial window. Co-reg restarted, HR controlled. Pt with anemia, normocytic, no GI bleeding noted on EGD or colonoscopy. Plan: Pericardial Tamponade POD # 9 of pericardial Window 10/25/18 ECHO (10/26/18): Normal LV Systolic Function, EF 55-60%, mild TR, Mild Pulm HTN, Small loculated Ant. pericardial effusion, small-moderate loculated posterior pericardial effusion. There are no echocardiographic indications of cardiac tamponade. Consults: CT Surgeon (Dr. Houston), Cardiology (Dr. Sultana), Hematology (Dr. Burgess) - All recs appreciated Pericardial Fluid, Gram Stain - Negative and no malignant cells. Meds: Carvedilol 3.125 PO BID Home Enalapril 20mg PO Daily (Held due to Hypotension) Pericarditis Etiology Unknown ID Consult (Dr. Perez), Recs Appreciated CMV - POSITIVE IgG, Intermediate IgM A-fib w/ Pacemaker. Rate control w/ Carvedilol EKG (10/31/18): NSR with no acute ST/T wave changes. Meds: Carvedilol 3.125 PO BID Eliquis 5 mg PO BID (HELD, due to GI Bleed) Cardiology, Dr. Sultana, consulted. No anticoagulation/ASA at this time. F/u recs Pt to have Watchman Procedure done outpt Normocytic Anemia Likely iron def. Anemia 2/2 to chronic GI Blood loss Meds: Ferrlecit 125mg IV Daily for 8 doses (Started on 10/27/18) GI Bleed Stool Occult Blood (10/23/18) - POSITIVE Stool Occult Blood (10/30/18) - NEGATIVE Consults: Hematology (Dr. Burgess), GI (Dr. Mcrae/Fernando) - All recs appreciated HOLD Antiplatelets/AntiCoags. EGD showed gastritis, biopsied, and normal duodenum which was also biopsied. Biopsy results: positvie for Mild chronic active gastritis in antrum. Colonoscopy showed nonbleeding internal hemorrhoids. No specimens collected. Entire examined colon is normal. Advance diet as tolerated. Repeat in 10 years. Meds: Protonix 40mg PO Left Upper Arm Superficial Plebitis: Continue Ice Packs for 1 hour every 4 hours NO NSAIDS for now considering the workup for Anemia is pending Venous Doppler Left Arm 11/01/18 shows left cephalic vein thrombophlebitis. No evidence of DVT. Hypomagnesemia 1.7 today MgSulfate 2 g IVPB Will continue to monitor and replete as necessary UTI Patient is asymptomatic, no intervention. UA (10/25/18): POSITIVE Leuk Es, WBC, Urine Culture (10/26/18) - NEGATIVE Hypertension. Cardiology Consult (Dr. Sultana), Recs appreciated Meds: Carvedilol 3.125 PO BID Home Enalapril 20mg PO Daily (Held due to Hypotension) PPx: Protonix SCD's Compression stocking and elevation of lower extremities to decrease edema, improving Chemical VTE proph Contraindicated due to GI Bleed HHD Objective - Vital Signs/Intake and Output Vital Signs (last 24 hours): Temp Pulse Resp BP Pulse Ox 98.5 F 70 20 126/71 98 11/03/18 15:00 11/03/18 15:00 11/03/18 15:00 11/03/18 15:00 11/03/18 15:00 Intake and Output: 11/03/18 11/04/18 18:59 06:59 Intake Total 100 Output Total 300 Balance -200 - Medications Medications: Current Medications Carvedilol (Coreg) 3.125 mg PO BID [facility] Last Admin: 11/03/18 18:21 Dose: 3.125 mg Ferric Sodium Gluconate Complex (Ferrlecit) 125 mg IVPB DAILY [facility] Stop: 11/04/18 10:01 Last Admin: 11/03/18 09:04 Dose: 125 mg Pantoprazole Sodium (Protonix Ec Tab) 40 mg PO DAILY [facility] Last Admin: 11/03/18 18:21 Dose: 40 mg - Labs Labs: 11/03/18 17:10 11/03/18 17:10 PT 14.8 SECONDS (9.7-12.2) H 11/01/18 10:05 INR 1.4 11/01/18 10:05 APTT 27 SECONDS (21-34) 10/29/18 08:37
[2018-11-04 06:50] LABS: BASO # 0.1 K/uL (0.0-0.2); BASO % 0.7 % (0.0-2.0); EOS # 0.2 K/uL (0.0-0.7); EOS % 2.2 % (0.0-4.0); HEMOGLOBIN 10.3 g/dL (11.0-16.0); LYMPH # 1.8 K/uL (1.0-4.3); LYMPH % 25.6 % (20.0-40.0); MEAN CELL VOLUME 85.6 fL (81.0-99.0); MEAN CORPUSCULAR HEMOGLOBIN 26.4 pg (27.0-31.0); MEAN CORPUSCULAR HGB CONC 30.9 g/dL (33.0-37.0); MEAN PLATELET VOLUME 8.2 fL (7.2-11.7); NEUT # 3.9 K/uL (1.8-7.0); NEUT % 56.5 % (50.0-75.0); NRBC % 0.1 % (0.0-2.0); RBC 3.92 Mil/uL (3.80-5.20); RED CELL DISTRIBUTION WIDTH 23.3 % (11.5-14.5)
[2018-11-04 07:31] LABS: ALB/GLOB RATIO 0.9 (1.0-2.1); ALBUMIN 2.9 g/dL (3.5-5.0); ALT/SGPT 24 U/L (9-52); AST/SGOT 35 U/L (14-36); BLOOD UREA NITROGEN 9 mg/dL (7-17); CALCIUM 8.5 mg/dl (8.6-10.4); GFR NON-AFRICAN AMERICAN > 60
--- NOTE | 2018-11-04 10:05 | CARD ---
APPROVED REPORT Date of service: 11/04/2018 EXAM: LIMITED Two-dimensional and M-mode echocardiogram with Doppler and color Doppler. INDICATION Pericardial Effusion follow up limited to assess pericardial fluid Mitral Valve E/A ratio0.0 TDI E/Lateral E'0.0E/Medial E'0.0 Tricuspid Valve TR Peak [id number] Peak [id number] LEFT VENTRICLE The left ventricle is normal size. There is normal left ventricular wall thickness. Left ventricle systolic function is normal. The Ejection Fraction is 55-60%. There is normal LV segmental wall motion. The left ventricular diastolic function is normal. There is no ventricular septal defect visualized. RIGHT VENTRICLE The right ventricle is normal size. The right ventricular systolic function is normal. ATRIA The left atrium size is normal. AORTIC VALVE The aortic valve is mildly sclerotic. The aortic valve is tri-cuspid. No Doppler No Doppler MITRAL VALVE The mitral valve is normal in structure. There is no evidence of mitral valve prolapse. No Doppler TRICUSPID VALVE The tricuspid valve is normal in structure. There is trace tricuspid regurgitation. There is no pulmonary hypertension. PULMONIC VALVE The pulmonic valve is not well visualized. GREAT VESSELS The aortic root is normal in size. The IVC is normal in size and collapses >50% with inspiration. PERICARDIAL EFFUSION There is a small-moderate loculated anterior pericardial effusion. There is a small loculated posterior pericardial effusion. no chenge from last evaluation There is moderate pleural effusion. <Conclusion> Limited study to evaluate effusion. There is a small-moderate loculated anterior pericardial effusion. There is a small loculated posterior pericardial effusion. no chenge from last evaluation
[2018-11-04] MEDS: Pantoprazole 40 mg EC Tab PO SCH (11:12)
[2018-11-04] MEDS: Ferric Sodium Gluconat Complex 62.5 mg/5 ml Vial IVPB SCH (11:13)
--- NOTE | 2018-11-04 11:28 | CP.PCM.PN ---
Subjective - Date & Time of Evaluation Date of Evaluation: 11/04/18 Time of Evaluation: :19 - Subjective Subjective: INFECTIOUS DISEASE PROGRESS NOTES MARK ANTHONY DOLAN MD, FACP 11/04/2018 CHART REVIEWED PT EXAMINED CASE DISCUSSED CLINICALLY THIS PATIENT HAS RESPONDED TO A MULTIFACTORIAL GROUP MANAGMENT PLAN. S/P COLONOSCOPY YESTERDAY, RESULTS PENDING VSS ABLE TO WALK AROUND, SOMEWHAT, NOT STRESSED, FOR REPEAT ECHO TO EVALUATE HER PERICARDIUM, HER LEFT ARM PHLEBITIS IS ALMOST COMPLETELY HEALED. LABS FROM THE ID POINT OF VIEW THAT NEED TO BE REPEATED OR ARE SIGNIFICANTLEY = OR -, 1) CMV FROM A MORE USABLE LAB NEEDS TO BE RECHECKED IN 2 WEEKS, 2) A QUANTIFERON GOLD PLUS TEST ALSO TO BE REPEATED, NOTICE THE PLUS, OT THE ROUTINE METHOD,PLEASE. 3) IZABELLA AND RF NEED TO BE REPEATED ALSO. ALSO PENDING STILL ARE THE [employer] A/B PENDING , NEGATIVE RESULTS ARE THE ECHO, HSV DNA AND INFLUENZA. OBSERVE CLINICALLY. FOLLOW IS ESSENTIAL. Objective - Vital Signs/Intake and Output Vital Signs (last 24 hours): Temp Pulse Resp BP Pulse Ox 98 F 70 20 100/59 L 97 11/04/18 00:00 11/04/18 01:00 11/04/18 00:00 11/04/18 00:00 11/04/18 00:00 - Medications Medications: Current Medications Carvedilol (Coreg) 3.125 mg PO BID [facility] Last Admin: 11/04/18 11:12 Dose: 3.125 mg Pantoprazole Sodium (Protonix Ec Tab) 40 mg PO DAILY [facility] Last Admin: 11/04/18 11:12 Dose: 40 mg - Labs Labs: 11/04/18 06:34 11/04/18 06:34 PT 14.8 SECONDS (9.7-12.2) H 11/01/18 10:05 INR 1.4 11/01/18 10:05 APTT 27 SECONDS (21-34) 10/29/18 08:37
--- NOTE | 2018-11-04 18:26 | CP.PCM.PN ---
Subjective - Date & Time of Evaluation Date of Evaluation: 11/04/18 Time of Evaluation: 15:00 - Subjective Subjective: No complaints. Objective - Vital Signs/Intake and Output Vital Signs (last 24 hours): Temp Pulse Resp BP Pulse Ox 99.2 F 80 20 107/64 93 L 11/04/18 15:00 11/04/18 15:00 11/04/18 15:00 11/04/18 15:00 11/04/18 15:00 - Medications Medications: Current Medications Carvedilol (Coreg) 3.125 mg PO BID [facility] Last Admin: 11/04/18 17:19 Dose: 3.125 mg Pantoprazole Sodium (Protonix Ec Tab) 40 mg PO DAILY [facility] Last Admin: 11/04/18 11:12 Dose: 40 mg - Labs Labs: 11/04/18 06:34 11/04/18 06:34 PT 14.8 SECONDS (9.7-12.2) H 11/01/18 10:05 INR 1.4 11/01/18 10:05 APTT 27 SECONDS (21-34) 10/29/18 08:37 - Head Exam Head Exam: ATRAUMATIC - Eye Exam Eye Exam: Normal appearance - ENT Exam ENT Exam: Mucous Membranes Dry - Respiratory Exam Respiratory Exam: NORMAL BREATHING PATTERN - Cardiovascular Exam Cardiovascular Exam: +S1, +S2 - GI/Abdominal Exam GI & Abdominal Exam: Normal Bowel Sounds Assessment and Plan (1) Coagulopathy Assessment & Plan: repet PT/PTT repeat plt function test likely secondary to anticoagulation which has been stopped Status: Acute (2) Anemia Assessment & Plan: iron deficiency anemia EGD/Colonoscopy - gastritis and internal hemorrhoids; no acute bleeding s/p PRBC transfusion on IV iron H/H improved and stable Status: Acute (3) Pericardial effusion Assessment & Plan: hemorrhagic cytology negative for malignancy infectious w/u in progress and appreciated anticoagulation on hold Status: Acute (4) Platelet dysfunction Assessment & Plan: resolving secondary to anticoagulation repeat plt function test Status: Acute
--- NOTE | 2018-11-04 22:13 | CP.PCM.PN ---
Subjective - Date & Time of Evaluation Date of Evaluation: 11/04/18 Time of Evaluation: 22:13 - Subjective Subjective: Patient improving still debilitated. Endoscopy results pending. Will follow with cardiology, ID. Objective - Vital Signs/Intake and Output Vital Signs (last 24 hours): Temp Pulse Resp BP Pulse Ox 99.2 F 80 20 107/64 93 L 11/04/18 15:00 11/04/18 15:00 11/04/18 15:00 11/04/18 15:00 11/04/18 15:00 - Medications Medications: Current Medications Carvedilol (Coreg) 3.125 mg PO BID [facility] Last Admin: 11/04/18 17:19 Dose: 3.125 mg Pantoprazole Sodium (Protonix Ec Tab) 40 mg PO DAILY [facility] Last Admin: 11/04/18 11:12 Dose: 40 mg - Labs Labs: 11/04/18 06:34 11/04/18 06:34 PT 14.8 SECONDS (9.7-12.2) H 11/01/18 10:05 INR 1.4 11/01/18 10:05 APTT 27 SECONDS (21-34) 10/29/18 08:37 - Constitutional Appears: Chronically Ill - Head Exam Head Exam: ATRAUMATIC, NORMAL INSPECTION, NORMOCEPHALIC - Eye Exam Eye Exam: Normal appearance - ENT Exam ENT Exam: Mucous Membranes Moist - Neck Exam Neck Exam: Full ROM - Respiratory Exam Respiratory Exam: Decreased Breath Sounds - Cardiovascular Exam Cardiovascular Exam: REGULAR RHYTHM, +S1, +S2 - GI/Abdominal Exam GI & Abdominal Exam: Soft, Normal Bowel Sounds - Extremities Exam Extremities Exam: Full ROM - Neurological Exam Neurological Exam: Alert, Awake, CN II-XII Intact, Oriented x3 - Psychiatric Exam Psychiatric exam: Flat Affect - Skin Skin Exam: Normal Color Assessment and Plan (1) Rapid atrial fibrillation Status: Acute (2) Symptomatic anemia Status: Acute (3) Atrial fibrillation Status: Acute (4) Hypertensive cardiovascular disease Status: Acute (5) Wide-complex tachycardia Status: Acute (6) Hypertension Status: Chronic (7) Pericardial effusion Status: Acute (8) Cardiac tamponade Status: Acute - Assessment and Plan (Free Text) Plan: Continue present rx.
[2018-11-05] MEDS ORDERED: Digoxin 500 mcg/2ml (0.5 mg/2ml) Inj IVP ONE ×3 (01:44→08:36)
[2018-11-05] MEDS ORDERED: Sodium Chloride 0.9% 250 ML IV ONE (02:14)
[2018-11-05] MEDS: Sodium Chloride 0.9% 1,000 ML IV SCH ×4 (03:08→22:30)
[2018-11-05] MEDS ORDERED: Metoprolol 1 mg/ml Inj IVP ONE (08:36)
--- NOTE | 2018-11-05 08:52 | RAD ---
Chest x-ray single frontal view HISTORY: Chest pain. Comparison: 10/31/2018 Findings: Moderate loculated left pleural effusion and small right pleural effusion. Patchy consolidative opacification in the left mid to lower lung zone and right lung base. Cardiomegaly. Left-sided pacemaker. Degenerative changes in the spine and shoulders. Impression: Moderate loculated left pleural effusion and small right pleural effusion. Patchy consolidative opacification in the left mid to lower lung zone and right lung base. Cardiomegaly. Left-sided pacemaker.
[2018-11-05 08:54] LABS: BASO # 0.1 K/uL (0.0-0.2); BASO % 1.5 % (0.0-2.0); EOS # 0.1 K/uL (0.0-0.7); EOS % 1.2 % (0.0-4.0); HEMOGLOBIN 11.3 g/dL (11.0-16.0); LYMPH % 24.3 % (20.0-40.0); MEAN CELL VOLUME 86.2 fL (81.0-99.0); MEAN CORPUSCULAR HEMOGLOBIN 26.9 pg (27.0-31.0); MEAN CORPUSCULAR HGB CONC 31.2 g/dL (33.0-37.0); MEAN PLATELET VOLUME 8.1 fL (7.2-11.7); MONO # 1.3 K/uL (0.0-0.8); MONO % 15.6 % (0.0-10.0); NEUT # 4.8 K/uL (1.8-7.0); NEUT % 57.4 % (50.0-75.0); RBC 4.21 Mil/uL (3.80-5.20); RED CELL DISTRIBUTION WIDTH 23.9 % (11.5-14.5); WHITE BLOOD COUNT 8.4 K/uL (4.8-10.8)
[2018-11-05] MEDS ORDERED: Verapamil 2 ML ONE (09:04)
[2018-11-05 09:09] LABS: ALB/GLOB RATIO 0.9 (1.0-2.1); ALBUMIN 2.9 g/dL (3.5-5.0); ALT/SGPT 22 U/L (9-52); AST/SGOT 38 U/L (14-36); BLOOD UREA NITROGEN 7 mg/dL (7-17); CALCIUM 8.1 mg/dl (8.6-10.4); GFR NON-AFRICAN AMERICAN > 60
[2018-11-05] MEDS ORDERED: Heparin25000 units/250ml 1/2NS 25,000 UNITS/250 ML BAG IV PRN ×2 (09:11→09:26)
[2018-11-05 09:14] LABS: PLT BASE COUNT 309 K/uL
[2018-11-05 09:15] LABS: FUNCTIONING PLTS 260 K/uL; PLT(ADP) 49 K/uL
[2018-11-05 09:25] LABS: INR 1.5; PROTHROMBIN TIME 16.7 SECONDS (9.7-12.2)
[2018-11-05] MEDS: Verapamil 180 mg ER Tab PO SCH (09:25)
--- NOTE | 2018-11-05 09:32 | PCM.RRT ---
<Yaima Wesley - Last Filed: 11/05/18 10:33> CAR PAINTER Nurses Assessment - Situation Date: 11/05/18 Time CAR PAINTER was called: 08:28 CAR PAINTER Responder Arrival Time:: 08:29 CAR PAINTER Location:: Med/Surg Room Number: 560A CAR PAINTER Reason for Call: Tachycardia CAR PAINTER Called By: RN - IV IV Inserted during CAR PAINTER?: No IV Fluids Initiated During CAR PAINTER?: NS 2L - Respiratory CAR PAINTER Delivery Method: Nasal Cannula @L/min (2) Oxygen Flow Rate: 2 Received Nebulizer Treatments: No Was the Patient Ventilated with Bag/Mask 100% O2?: No Secretions Suctioned?: No Was the Patient Intubated?: No Was the Patient Placed on a Ventilator?: No - Medication Medications Administered During CAR PAINTER: Nitroglycerin 0.4 mg SL, Digoxin 0.125 mg IVP, Heparin 5000 units IV bolus, Heparin drip, Verapamil 2.5 mg IVP - Diagnostic Test Ordered EKG: Yes Chest X-Ray: Yes - Stat Labs Ordered CAR PAINTER Stat Labs Ordered: CBC, BMP, TROPONIN CPR started during CAR PAINTER?: No - Vital Signs Vital Signs: BP 96/64 HR 100-130s irregular T 98.6 spO2 98% on 2 L - [place] Coma Scale Coma Scale Eye Opening: Spontaneous Coma Scale Motor: Obeys Commands Movement Coma Scale Verbal: Oriented Coma Scale Total: 15 - Sepsis Screen Part 1 Sepsis Screen Part 1: Hypotensive - Time CAR PAINTER Ended Time CAR PAINTER Ended: 08:55 - Vital Signs at end of CAR PAINTER Vital Signs at end of CAR PAINTER: BP 90/50 HR 90-110s irregular spO2 99% on 2 L NC - Recommendations 5) CAR PAINTER Level of Care Recommendations: Remain in current setting (telemetry) Notifications: Attending Physician, Consultations (Cardiology (Dr. Sultana)) I.Reason for CAR PAINTER - A) Acute Change in Patient: (Select all that apply): Acute change in heart rate less than 50 or greater than 120 Subjective: RN called CAR PAINTER for patient complaining of chest pressure and HR in 140s. Upon arrival, patient appears anxious, complains of chest tightness, no respiratory distress. Overnight, patient was given stat dose of Digoxin for HR and started on IVF (NS @ 100 cc/hr) for hypotension. Plan was to start patient on Cardizem today. Patient was alert, oriented, and able to effectively communicate. Her BP was noted to be low (90s/60s). She was given a dose of sublingual nitroglycerin. She stated that her chest tightness was improving. EKG affirmed Afib RVR HR 130. Patient was given IV Digoxin. IVF were continued. BP continued to be low. Patient was due to get dose of Coreg this morning- that was held. ICU was consulted as Cardizem could not be started at this low BP. Cardiology, Dr. Sultana, was contacted. He stated there is concern for PE. He requested D-dimer to be drawn and Heparin bolus and drip to be started. CBC, CMP, and KIRSTIE were drawn as well. ICU, Dr. Nicolasa Coats, assessed patient and decided she is stable to be on telemetry. He started patient on Verapamil. Patient was also given 2 boluses of 1 L NS. - Neurological Status (Select all that apply): Alert, Responsive, Oriented, Verbal, Follows Commands - Respiratory Oxygen Delivery Method: Nasal Cannula @L/min (2) Oxygen Flow Rate: 2 - Constitutional Appears: No Acute Distress Additional Comments: Anxious - Head Head Exam: ATRAUMATIC, NORMAL INSPECTION - Eyes Eye Exam: EOMI, Normal appearance - Respiratory Exam Respiratory Exam: Clear to Ausculation Bilateral, NORMAL BREATHING PATTERN - Cardiovascular Exam Cardiovascular Exam: Tachycardia, Irregular Rhythm - GI/Abdominal Exam GI & Abdominal Exam: Soft. absent: Tenderness - Neurological Exam Neurological Exam: Alert, Awake, CN II-XII Intact, Oriented x3 Plan - Assessment of Findings&Treatment Plan CAR PAINTER called for patient complaining of chest pressure. Patient in Afib RVR and hypotension. Plan: - Stat EKG - Stat CXR - Stat CBC, CMP, KIRSTIE, D-dimer - Trop negative - 2 L NS bolus - Nitroglycerin 0.4 mg SL - Digoxin 0.125 mg IVP - Heparin 5000 unit IV bolus--> Heprarin drip - Verapamil 2.5 mg IVP--> Verapamil 180 mg PO daily - Hold scheduled Coreg - ICU consult- remain in telemetry - Primary attending (Summer) and cardiology (Rd) notified <Aidee Love V - Last Filed: 11/05/18 13:30> Attending/Attestation - Attestation I have personally seen and examined this patient.: Yes I have fully participated in the care of the patient.: Yes I have reviewed all pertinent clinical information, including history, physical exam and plan: Yes Notes (Text): CAR PAINTER called for chest pain, heart rate: 140s Patient noted for chest tightness. Patient's EKG shows atral fib RVR. Patient given Digoxin 0.125mg IVPX1 and nitrosublingual 0.4. However, blood pressure about 80/90s systolic. Blood work collected at CAR PAINTER because it was not drawn earlier today. CBC, CMP, KIRSTIE, and d-dimer collected. troponin negative. d-dimer pending. Resident spoke with Dr. Sultana, concern for PE (patient is not hypoxic), recommend for d-dimer and heparin drip. ICU consulted; patient given 2 1 liter bolus and given verampil 2.5mg IVPX1; likely worsen by volume loss per R Coats. ICU started Verapmil 180mg PO daily; held coreg. Patient reassessed. Patient doing better. No chest tightness. vitals improving while receiving IV fluids fluid. D-dimer elevated. Ct angio negative for PE. ICU re-evaluated patient noted new left pleural effusion (Nursing note noted updated icu follow-up)
[2018-11-05 09:34] LABS: ALB/GLOB RATIO 0.9 (1.0-2.1); ALBUMIN 2.7 g/dL (3.5-5.0); ALT/SGPT 26 U/L (9-52); AST/SGOT 35 U/L (14-36); BLOOD UREA NITROGEN 7 mg/dL (7-17); CALCIUM 8.2 mg/dl (8.6-10.4); GFR NON-AFRICAN AMERICAN > 60
[2018-11-05] MEDS ORDERED: Iodixanol 320 MG/ML 100 ML BOTTLE IV ONE (10:24)
[2018-11-05] MEDS: Pantoprazole 40 mg EC Tab PO SCH (10:56)
--- NOTE | 2018-11-05 11:52 | CP.PCM.CON ---
<Triston Mendoza - Last Filed: 11/05/18 18:41> History of Present Illness - History of Present Illness History of Present Illness: ICU Consult Note for Dr. Nicolasa Coats This is a 62 y o female with PMhx pacemaker, A-fib, who presented to the ED with generalized weakness, dizziness, and near syncope. Was admitted for management of A-fib with RVR, anemia. S/p pericardial window for pericardial effusion with CT surgery 2 weeks prior. Reason for ICU consult was for A-fib with RVR and hypotension. PORTABLE FEED MILL OPERATOR was called today on tele floor for pt c/o chest pressure and HR in 140s. BP was noted to be 90s/60s. Pt was given dose of sublingual nitroglycerin with improvement in symptoms. EKG during PORTABLE FEED MILL OPERATOR demonstrated A-fib with RVR, HR in 130s. Pt was given IV Digoxin. Cardiology was consulted during PORTABLE FEED MILL OPERATOR (Dr. Sultana), who recommended D-dimer and heparin drip to be ordered, for concern of PE. On my exam pt was tachycardic in 120s-130s and hypotensive. Pt stated on exam that her chest tightness was improved, but that she was worried about her heart rate. Pt appeared anxious on exam. PMhx: as noted above PSurgHx: s/p Pericardial window 2 wks prior during current admission for pericardial effusion, s/p pacemaker placement Allergies: NKDA Current meds: reviewed as per STACI Fam hx: denies Soc hx: denies smoking, EtOH or illicit drug use PMD: Dr. Wheeler Review of Systems - Constitutional Constitutional: absent: Chills, Fatigue, Fever, Malaise - Cardiovascular Cardiovascular: absent: Chest Pain, Dyspnea on Exertion, Edema, Palpitations, Syncope - Respiratory Respiratory: absent: Cough, Dyspnea, Wheezing - Gastrointestinal Gastrointestinal: absent: Abdominal Pain, Constipation, Diarrhea, Nausea, Vomiting Past Patient History - Past Medical History & Family History Past Medical History?: Yes - Past Social History Smoking Status: Never Smoked - CARDIAC Hx Cardiac Disorders: Yes Hx Hypertension: Yes - PULMONARY Hx Respiratory Disorders: No - NEUROLOGICAL Hx Neurological Disorder: No - HEENT Hx HEENT Problems: No - RENAL Hx Chronic Kidney Disease: No - ENDOCRINE/METABOLIC Hx Endocrine Disorders: No - HEMATOLOGICAL/ONCOLOGICAL Hx Blood Disorders: Yes Hx Anemia: Yes - INTEGUMENTARY Hx Dermatological Problems: No - MUSCULOSKELETAL/RHEUMATOLOGICAL Hx Musculoskeletal Disorders: No Hx Falls: No - GENITOURINARY/GYNECOLOGICAL Hx Genitourinary Disorders: No - PSYCHIATRIC Hx Psychophysiologic Disorder: No Hx Substance Use: No - SURGICAL HISTORY Hx Surgeries: Yes Hx Hysterectomy: Yes Other/Comment: lung surgery =due to small [id number] - ANESTHESIA Hx Anesthesia: Yes Hx Anesthesia Reactions: No Hx Malignant Hyperthermia: No Meds Allergies/Adverse Reactions: Allergies Allergy/AdvReac Type Severity Reaction Status Date / Time No Known Allergies Allergy Verified 10/23/18 09:05 - Medications Medications: Current Medications Carvedilol (Coreg) 3.125 mg PO BID [facility] Last Admin: 11/04/18 17:19 Dose: 3.125 mg Sodium Chloride (Sodium Chloride 0.9%) 1,000 mls @ 100 mls/hr IV .Q10H [facility] Last Admin: 11/05/18 10:56 Dose: 100 mls/hr Heparin Sodium/Sodium Chloride (Heparin 66237 Units/250ml 1/2 Normal Saline) 25,000 units in 250 mls @ 11.7 mls/hr IV .[id number] PRN; Protocol PRN Reason: PROTOCOL Last Admin: 11/05/18 11:01 Dose: 18 units/kg/hr, 11.7 mls/hr Pantoprazole Sodium (Protonix Ec Tab) 40 mg PO DAILY [facility] Last Admin: 11/05/18 10:56 Dose: 40 mg Verapamil HCl (Calan Sr Tab) 180 mg PO DAILY [facility] Last Admin: 11/05/18 09:25 Dose: 180 mg Physical Exam - Constitutional Appears: Non-toxic, No Acute Distress - Head Exam Head Exam: ATRAUMATIC, NORMOCEPHALIC - Eye Exam Eye Exam: EOMI, Normal appearance, PERRL - ENT Exam ENT Exam: Mucous Membranes Moist - Respiratory Exam Respiratory Exam: Clear to Auscultation Bilateral, NORMAL BREATHING PATTERN - Cardiovascular Exam Cardiovascular Exam: REGULAR RHYTHM, +S1, +S2. absent: Gallop, Rubs, Systolic Murmur - GI/Abdominal Exam GI & Abdominal Exam: Normal Bowel Sounds, Soft. absent: Distended, Organomegaly, Tenderness - Extremities Exam Extremities exam: Positive for: full ROM, normal capillary refill, normal inspection, pedal pulses present - Neurological Exam Neurological exam: Alert, CN II-XII Intact, Oriented x3 - Skin Skin Exam: Dry, Intact, Warm Results - Vital Signs Recent Vital Signs: Last Vital Signs Temp 99.4 F 11/05/18 08:00 Pulse 112 H 11/05/18 08:00 Resp 20 11/05/18 08:00 BP 100/63 11/05/18 08:00 Pulse Ox 100 11/05/18 08:00 - Labs Result Diagrams: 11/05/18 08:49 11/05/18 09:04 Labs: Laboratory Results - last 24 hr 10/27/18 11/05/18 11/05/18 07:20 08:49 08:49 WBC 8.4 RBC 4.21 Hgb 11.3 Hct 36.3 MCV 86.2 MCH 26.9 L MCHC 31.2 L RDW 23.9 H Plt Count 307 MPV 8.1 Neut % (Auto) 57.4 Lymph % (Auto) 24.3 Woodruff % (Auto) 15.6 H Eos % (Auto) 1.2 Baso % (Auto) 1.5 Neut # (Auto) 4.8 Lymph # (Auto) 2.0 Woodruff # (Auto) 1.3 H Eos # (Auto) 0.1 Baso # (Auto) 0.1 PT INR APTT Fibrinogen D-Dimer, Quantitative Plt Function Assay Sodium 136 Potassium 3.6 Chloride 103 Carbon Dioxide 27 Anion Gap 10 BUN 7 Creatinine 0.5 L Est GFR ( Amer) > 60 Est GFR (Non-Af Amer) > 60 Random Glucose 100 D Calcium 8.1 L Phosphorus Magnesium 1.6 Total Bilirubin 0.8 AST 38 H ALT 22 Alkaline Phosphatase 94 Total Creatine Kinase 25 L CK-MB (Mass) 0.50 Troponin I < 0.0120 Total Protein 6.1 L Albumin 2.9 L Globulin 3.2 Albumin/Globulin Ratio 0.9 L Homocysteine [place]ackie Type A(2) Ab <1:8 [place] Type A(4) Ab <1:8 [place] Type A(7) Ab <1:8 [place] Type A(9) Ab <1:8 [place] Type A(16) Ab <1:8 11/05/18 11/05/18 11/05/18 09:00 09:04 09:04 WBC RBC Hgb Hct MCV MCH MCHC RDW Plt Count MPV Neut % (Auto) Lymph % (Auto) Woodruff % (Auto) Eos % (Auto) Baso % (Auto) Neut # (Auto) Lymph # (Auto) Woodruff # (Auto) Eos # (Auto) Baso # (Auto) PT INR APTT Fibrinogen D-Dimer, Quantitative Plt Function Assay 260 Sodium 136 Potassium 3.9 Chloride 102 Carbon Dioxide 27 Anion Gap 11 BUN 7 Creatinine 0.5 L Est GFR ( Amer) > 60 Est GFR (Non-Af Amer) > 60 Random Glucose 98 Calcium 8.2 L Phosphorus 3.7 Magnesium 1.6 Total Bilirubin 0.8 AST 35 ALT 26 Alkaline Phosphatase 93 Total Creatine Kinase CK-MB (Mass) Troponin I Total Protein 5.6 L Albumin 2.7 L Globulin 2.9 Albumin/Globulin Ratio 0.9 L Homocysteine 7.4 [place]ie Type A(2) Ab [place] Type A(4) Ab [place] Type A(7) Ab [place] Type A(9) Ab [place] Type A(16) Ab 11/05/18 09:04 WBC RBC Hgb Hct MCV MCH MCHC RDW Plt Count MPV Neut % (Auto) Lymph % (Auto) Woodruff % (Auto) Eos % (Auto) Baso % (Auto) Neut # (Auto) Lymph # (Auto) Woodruff # (Auto) Eos # (Auto) Baso # (Auto) PT 16.7 H INR 1.5 APTT 35 H Fibrinogen 396 D-Dimer, Quantitative 1687 H Plt Function Assay Sodium Potassium Chloride Carbon Dioxide Anion Gap BUN Creatinine Est GFR ( Amer) Est GFR (Non-Af Amer) Random Glucose Calcium Phosphorus Magnesium Total Bilirubin AST ALT Alkaline Phosphatase Total Creatine Kinase CK-MB (Mass) Troponin I Total Protein Albumin Globulin Albumin/Globulin Ratio Homocysteine [place] Type A(2) Ab [place] Type A(4) Ab [place] Type A(7) Ab [place] Type A(9) Ab [place]ie Type A(16) Ab Assessment & Plan - Assessment and Plan (Free Text) Assessment: 62 y o female with PMhx pacemaker, A-fib, who presented to the ED with generalized weakness, dizziness, and near syncope. Was admitted for management of A-fib with RVR, anemia. Reason for ICU consult was for A-fib with RVR and hypotension. Plan: -2.5 mg IVP x2 of Verapamil with improvement in HR -Started Verapamil PO emlvin -IVF bolus x 2 L with improvement in BP -Spoke with CT Surgery (Dr. Ohara) about case, and CT chest finding today of L-sided pleural effusion. Aware, recommended eval by surgical residents for possible thoracentesis. Pt underwent thoracentesis of pleural effusion with Dr. Pierce (IR) today, 800 cc serosanguinous fluid aspirated, no drains placed. -To be monitored in ICU post-procedure. Further recommendations as per attending physician, Dr. Nicolasa Coats. Triston Mendoza DO PGY-1, Hr Administrative Assistant Pager #[phone] <Gayle Coats - Last Filed: 11/06/18 11:58> Meds - Medications Medications: Current Medications Vancomycin HCl 1 gm/ Sodium (Chloride) 250 mls @ 166.7 mls/hr IVPB Q24H [facility]; Protocol Last Admin: 11/05/18 22:45 Dose: 166.7 mls/hr Ceftriaxone Sodium (Rocephin Iv 1 Gm Duplex) 50 mls @ 100 mls/hr IVPB DAILY [facility]; Protocol Last Admin: 11/06/18 09:08 Dose: 100 mls/hr Multivitamins (Hexavitamin) 1 tab PO DAILY [facility] Last Admin: 11/06/18 09:06 Dose: 1 tab Pantoprazole Sodium (Protonix Ec Tab) 40 mg PO DAILY [facility] Last Admin: 11/06/18 09:06 Dose: 40 mg Potassium Chloride (K-Dur 20 Meq Er Tab) 40 meq PO DAILY [facility] Stop: 11/07/18 10:01 Last Admin: 11/06/18 09:06 Dose: 40 meq Verapamil HCl (Calan Sr Tab) 180 mg PO DAILY [facility] Last Admin: 11/06/18 09:06 Dose: 180 mg Results - Vital Signs Recent Vital Signs: Last Vital Signs Temp 98.3 F 11/06/18 06:30 Pulse 81 11/06/18 10:58 Resp 24 11/06/18 10:58 BP 98/53 L 11/06/18 10:58 Pulse Ox 100 11/06/18 10:58 - Labs Result Diagrams: 11/06/18 05:54 11/06/18 05:54 Labs: Laboratory Results - last 24 hr 03/11/05/18 11/06/18 10:25 16:48 05:54 WBC 10.0 RBC 3.87 Hgb 10.4 L Hct 33.5 L MCV 86.5 MCH 26.9 L MCHC 31.1 L RDW 24.1 H Plt Count 252 MPV 8.8 Neut % (Auto) 61.5 Lymph % (Auto) 23.3 Woodruff % (Auto) 13.0 H Eos % (Auto) 1.2 Baso % (Auto) 1.0 Neut # (Auto) 6.1 Lymph # (Auto) 2.3 Woodruff # (Auto) 1.3 H Eos # (Auto) 0.1 Baso # (Auto) 0.1 Sodium Potassium Chloride Carbon Dioxide Anion Gap BUN Creatinine Est GFR ( Amer) Est GFR (Non-Af Amer) Random Glucose Calcium Phosphorus Magnesium Iron TIBC % Saturation Ferritin Total Bilirubin AST ALT Alkaline Phosphatase Total Protein Albumin Globulin Albumin/Globulin Ratio Homocysteine Cardiovas 6.9 Fluid Source Pleural Fluid Appearance Bloody Fluid WBC 1791.0 H Fluid RBC 62614.0 H Fluid Tot Cell Count 100 H Fluid Neutrophils 57.0 H Fluid Lymphocytes 40.0 H Fld Monocyte/Macrophag 3 H Fluid Comment Hepatitis A IgM Ab Hep Bs Antigen Hep B Core IgM Ab Hepatitis C Antibody 11/06/18 11/06/18 11/06/18 05:54 05:54 05:54 WBC RBC Hgb Hct MCV MCH MCHC RDW Plt Count MPV Neut % (Auto) Lymph % (Auto) Woodruff % (Auto) Eos % (Auto) Baso % (Auto) Neut # (Auto) Lymph # (Auto) Woodruff # (Auto) Eos # (Auto) Baso # (Auto) Sodium 137 Potassium 3.4 L Chloride 107 Carbon Dioxide 24 Anion Gap 9 L BUN 6 L Creatinine 0.5 L Est GFR ( Amer) > 60 Est GFR (Non-Af Amer) > 60 Random Glucose 106 H Calcium 7.5 L Phosphorus 2.8 Magnesium 1.6 Iron 23 L TIBC 279 % Saturation 8 L Ferritin Total Bilirubin 0.6 AST 25 ALT 12 Alkaline Phosphatase 80 Total Protein 5.5 L Albumin 2.5 L Globulin 3.0 Albumin/Globulin Ratio 0.9 L Homocysteine Cardiovas Fluid Source Fluid Appearance Fluid WBC Fluid RBC Fluid Tot Cell Count Fluid Neutrophils Fluid Lymphocytes Fld Monocyte/Macrophag Fluid Comment Hepatitis A IgM Ab Negative Hep Bs Antigen Negative Hep B Core IgM Ab Negative Hepatitis C Antibody Negative 11/06/18 05:54 WBC RBC Hgb Hct MCV MCH MCHC RDW Plt Count MPV Neut % (Auto) Lymph % (Auto) Woodruff % (Auto) Eos % (Auto) Baso % (Auto) Neut # (Auto) Lymph # (Auto) Woodruff # (Auto) Eos # (Auto) Baso # (Auto) Sodium Potassium Chloride Carbon Dioxide Anion Gap BUN Creatinine Est GFR ( Amer) Est GFR (Non-Af Amer) Random Glucose Calcium Phosphorus Magnesium Iron TIBC % Saturation Ferritin 319.0 Total Bilirubin AST ALT Alkaline Phosphatase Total Protein Albumin Globulin Albumin/Globulin Ratio Homocysteine Cardiovas Fluid Source Fluid Appearance Fluid WBC Fluid RBC Fluid Tot Cell Count Fluid Neutrophils Fluid Lymphocytes Fld Monocyte/Macrophag Fluid Comment Hepatitis A IgM Ab Hep Bs Antigen Hep B Core IgM Ab Hepatitis C Antibody Assessment & Plan - Assessment and Plan (Free Text) Plan: Patient seen and examined at bedside. Patient's HR was near 140s, irregular, b/l air entry, (+)ronchi left chest -Patient's HR improved with verapamil + IVF -CT chest reveals fluid collection -will request aleida of fluid -monitor in ICU - Date & Time Date: 11/05/18 Time: 19:00
--- NOTE | 2018-11-05 12:03 | CT ---
Date of service: 11/05/2018 PROCEDURE: CT Chest with contrast (Pulmonary Angiogram) HISTORY: PE protocol COMPARISON: Comparison is made with the previous CT of the chest without contrast dated 11/30/2011 TECHNIQUE: Axial computed tomography images were obtained of the chest in the pulmonary arterial phase of enhancement. Coronal and sagittal reformatted images were created and reviewed. Intravenous contrast dose: 100 mL of Visipaque 320 intravenously. Radiation dose: Total exam DLP = 555.45 mGy-cm. This CT exam was performed using one or more of the following dose reduction techniques: Automated exposure control, adjustment of the mA and/or kV according to patient size, and/or use of iterative reconstruction technique. FINDINGS: PULMONARY ARTERIES: No evidence of filling defect in the visualized pulmonary arteries to suggest acute pulmonary embolus. AORTA: No acute findings. No thoracic aortic aneurysm. Small foci of atherosclerotic calcification noted in the aortic arch LUNGS: Almost complete consolidation of the left lung lower lobe likely atelectasis due to left pleural effusion. Foci of airspace consolidation also noted at the right lower lobe. Mild to moderate pulmonary vascular congestion is noted. PLEURAL SPACES: There is a moderate to large left pleural effusion. There is also moderate right pleural effusion. HEART: Heart is mildly to moderately enlarged. There is moderate pericardial effusion. Pacemaker wires seen extending to the right heart. LYMPH NODES: Mildly enlarged/prominent mediastinal lymph nodes noted. BONES, CHEST WALL: Unremarkable. No fracture or destructive lesion OTHER FINDINGS: Cirrhotic manifestation of the liver noted in the abdomen. Possible cyst splenomegaly. IMPRESSION: No evidence of pulmonary embolus. Cardiomegaly. Moderate pericardial effusion. Moderate to large left and small to moderate right pleural effusions. Almost complete collapse of the left lung lower lobe likely due to large pleural effusion. Airspace consolidation at right lower lobe could represent atelectasis versus less likely pneumonia. Moderate pulmonary vascular congestion. Cirrhosis.
[2018-11-05] MEDS ORDERED: Lidocaine Hydrochloride 5 ML INJ ONE (13:01)
--- NOTE | 2018-11-05 13:03 | CP.PCM.PN ---
Subjective - Date & Time of Evaluation Date of Evaluation: 11/05/18 Time of Evaluation: 12:00 - Subjective Subjective: [employer] MECH[employer]IC noted; afib with RVR; for ICU evaluation left pleural effusion noted on CT; for thoracentesis - H/H improved, low suspicion for hemothorax but will await fluid analysis cleared from hematology standpoint if requires heparin drip at this point but will need to monitor for bleeding closely Objective - Vital Signs/Intake and Output Vital Signs (last 24 hours): Temp Pulse Resp BP Pulse Ox 99.4 F 112 H 20 100/63 100 11/05/18 08:00 11/05/18 08:00 11/05/18 08:00 11/05/18 08:00 11/05/18 08:00 Intake and Output: 11/05/18 11/05/18 06:59 18:59 Intake Total 1100 Output Total 500 Balance 600 - Medications Medications: Current Medications Carvedilol (Coreg) 3.125 mg PO BID [facility] Last Admin: 11/04/18 17:19 Dose: 3.125 mg Sodium Chloride (Sodium Chloride 0.9%) 1,000 mls @ 100 mls/hr IV .Q10H [facility] Last Admin: 11/05/18 10:56 Dose: 100 mls/hr Pantoprazole Sodium (Protonix Ec Tab) 40 mg PO DAILY [facility] Last Admin: 11/05/18 10:56 Dose: 40 mg Verapamil HCl (Calan Sr Tab) 180 mg PO DAILY [facility] Last Admin: 11/05/18 09:25 Dose: 180 mg - Labs Labs: 11/05/18 08:49 11/05/18 09:04 PT 16.7 SECONDS (9.7-12.2) H 11/05/18 09:04 INR 1.5 11/05/18 09:04 APTT 35 SECONDS (21-34) H 11/05/18 09:04 - Head Exam Head Exam: ATRAUMATIC - Eye Exam Eye Exam: Normal appearance - ENT Exam ENT Exam: Mucous Membranes Dry - Respiratory Exam Respiratory Exam: Decreased Breath Sounds - Cardiovascular Exam Cardiovascular Exam: +S1, +S2 - GI/Abdominal Exam GI & Abdominal Exam: Normal Bowel Sounds Assessment and Plan (1) Coagulopathy Status: Acute (2) Anemia Status: Acute (3) Pericardial effusion Status: Acute (4) Platelet dysfunction Status: Acute
--- NOTE | 2018-11-05 13:04 | PCM.SURG1 ---
Surgeon's Initial Post Op Note - Surgeon's Notes Surgeon: Livan Pierce MD Diagnostics Tech: NONE Type of Anesthesia: Local Pre-Operative Diagnosis: Pleural effusion Operative Findings: US showed moderate left pleural effusion Post-Operative Diagnosis: Pleural effusion Operation Performed: US guided left thoracentesis Specimen/Specimens Removed: 800 cc of serosanguinous fluid Estimated Blood Loss: EBL {In ML}: 0 Blood Products Given: N/A Drains Used: No Drains Post-Op Condition: Fair Date of Surgery/Procedure: 11/05/18 Time of Surgery/Procedure: 13:00
--- NOTE | 2018-11-05 14:24 | CP.PCM.PN ---
Subjective - Date & Time of Evaluation Date of Evaluation: 11/05/18 Time of Evaluation: 14:00 - Subjective Subjective: f/u cirrhosis above events noted . Pt seen in CCU9. present. Reports dailt glass wine with dinner for many years in th , and moderate beer drinking before then. Denies hepatitis. Denies abd pain, fever, SZ, LARA,RB, melena, tremor, hematuria, hemoptysis Objective - Vital Signs/Intake and Output Vital Signs (last 24 hours): Temp Pulse Resp BP Pulse Ox 99.4 F 112 H 20 100/63 100 11/05/18 08:00 11/05/18 08:00 11/05/18 08:00 11/05/18 08:00 11/05/18 08:00 Intake and Output: 11/05/18 11/05/18 06:59 18:59 Intake Total 1100 Output Total 500 Balance 600 - Medications Medications: Current Medications Carvedilol (Coreg) 3.125 mg PO BID [facility] Last Admin: 11/04/18 17:19 Dose: 3.125 mg Sodium Chloride (Sodium Chloride 0.9%) 1,000 mls @ 100 mls/hr IV .Q10H [facility] Last Admin: 11/05/18 10:56 Dose: 100 mls/hr Pantoprazole Sodium (Protonix Ec Tab) 40 mg PO DAILY [facility] Last Admin: 11/05/18 10:56 Dose: 40 mg Verapamil HCl (Calan Sr Tab) 180 mg PO DAILY [facility] Last Admin: 11/05/18 09:25 Dose: 180 mg - Labs Labs: 11/05/18 08:49 11/05/18 09:04 PT 16.7 SECONDS (9.7-12.2) H 11/05/18 09:04 INR 1.5 11/05/18 09:04 APTT 35 SECONDS (21-34) H 11/05/18 09:04 - Constitutional Appears: Non-toxic - Respiratory Exam Respiratory Exam: Rales - Cardiovascular Exam Cardiovascular Exam: RRR, Murmur - GI/Abdominal Exam GI & Abdominal Exam: Soft, Normal Bowel Sounds. absent: Guarding, Tenderness, Mass - Extremities Exam Extremities Exam: absent: Calf Tenderness - Neurological Exam Neurological Exam: Alert, Awake, Oriented x3 Assessment and Plan (1) Coagulopathy Assessment & Plan: Consider cirrhosis Status: Acute (2) Symptomatic anemia Assessment & Plan: Hb- stable Status: Acute (3) Atrial fibrillation Status: Acute (4) Hypertension Status: Chronic (5) Pacemaker Status: Acute (6) Pericardial effusion Status: Acute (7) Pleural effusion Status: Acute (8) Cirrhosis Assessment & Plan: Nodular liver seen on CT,. Consider ETOH. CIRRHOSIS HAD BEEN ASSOCIATED WITH PERICARDIAL EFFUSIONS, BUT IN CASES OF SIGNIFICANT ASCITES- WHICH DID NOT EXIST HERE. Rec- check labs Status: Acute
[2018-11-05 16:50] LABS: BODY FLUID TYPE PLEURAL
--- NOTE | 2018-11-05 18:41 | CP.PCM.PN ---
Subjective - Date & Time of Evaluation Date of Evaluation: 11/05/18 Time of Evaluation: 14:05 - Subjective Subjective: This am the patient presented with chest pain, constrictive in nature. A comprehensive w/u reveled that she had a pleural effusion. A Ct scan reveled liver cirrhosis (this is a new finding). She underwent to thoracentesis. Her condition improving well. Will follow further w/u. At present no CP, no dyspenea. Objective - Vital Signs/Intake and Output Vital Signs (last 24 hours): Temp Pulse Resp BP Pulse Ox 99.7 F H 85 18 98/58 L 98 11/05/18 16:00 11/05/18 17:00 11/05/18 17:00 11/05/18 17:00 11/05/18 17:00 Intake and Output: 11/05/18 11/05/18 11:59 23:59 Intake Total 800 2650 Output Total 200 Balance 800 2450 - Medications Medications: Current Medications Carvedilol (Coreg) 3.125 mg PO BID [facility] Last Admin: 11/04/18 17:19 Dose: 3.125 mg Sodium Chloride (Sodium Chloride 0.9%) 1,000 mls @ 100 mls/hr IV .Q10H [facility] Last Admin: 11/05/18 17:56 Dose: Not Given Pantoprazole Sodium (Protonix Ec Tab) 40 mg PO DAILY [facility] Last Admin: 11/05/18 10:56 Dose: 40 mg Verapamil HCl (Calan Sr Tab) 180 mg PO DAILY [facility] Last Admin: 11/05/18 09:25 Dose: 180 mg - Labs Labs: 11/05/18 08:49 11/05/18 09:04 PT 16.7 SECONDS (9.7-12.2) H 11/05/18 09:04 INR 1.5 11/05/18 09:04 APTT 35 SECONDS (21-34) H 11/05/18 09:04 - Constitutional Appears: Chronically Ill - Head Exam Head Exam: ATRAUMATIC, NORMAL INSPECTION, NORMOCEPHALIC - Eye Exam Eye Exam: Normal appearance - ENT Exam ENT Exam: Mucous Membranes Moist - Respiratory Exam Respiratory Exam: Decreased Breath Sounds - Cardiovascular Exam Cardiovascular Exam: Tachycardia, REGULAR RHYTHM, +S1, +S2 - GI/Abdominal Exam GI & Abdominal Exam: Normal Bowel Sounds - Extremities Exam Extremities Exam: Normal Inspection - Neurological Exam Neurological Exam: Alert, Awake, CN II-XII Intact, Oriented x3 - Psychiatric Exam Psychiatric exam: Flat Affect - Skin Skin Exam: Normal Color Assessment and Plan (1) Rapid atrial fibrillation Status: Acute (2) Symptomatic anemia Status: Acute (3) Atrial fibrillation Status: Acute (4) Hypertensive cardiovascular disease Status: Acute (5) Wide-complex tachycardia Status: Acute (6) Hypertension Status: Chronic (7) Pericardial effusion Status: Acute (8) Cardiac tamponade Status: Acute (9) Pleural effusion Status: Acute - Assessment and Plan (Free Text) Assessment: As per orders.
[2018-11-05 19:08] LABS: BF GROSS APPEARANCE BLOODY (CLEAR)
[2018-11-05 19:09] LABS: BODY FLUID MONO/MACROPHAGE 3 % (0-0); BODY FLUID TOTAL COUNT 100 (0-0)
[2018-11-05] MEDS: cefTRIAXone IV 1 gm in Dextros 50 ML IVPB SCH (22:00)
[2018-11-06 06:06] LABS: BASO # 0.1 K/uL (0.0-0.2); EOS # 0.1 K/uL (0.0-0.7); EOS % 1.2 % (0.0-4.0); HEMOGLOBIN 10.4 g/dL (11.0-16.0); LYMPH # 2.3 K/uL (1.0-4.3); LYMPH % 23.3 % (20.0-40.0); MEAN CELL VOLUME 86.5 fL (81.0-99.0); MEAN CORPUSCULAR HEMOGLOBIN 26.9 pg (27.0-31.0); MEAN CORPUSCULAR HGB CONC 31.1 g/dL (33.0-37.0); MEAN PLATELET VOLUME 8.8 fL (7.2-11.7); MONO # 1.3 K/uL (0.0-0.8); NEUT # 6.1 K/uL (1.8-7.0); NEUT % 61.5 % (50.0-75.0); NRBC % 0.1 % (0.0-2.0); RBC 3.87 Mil/uL (3.80-5.20); RED CELL DISTRIBUTION WIDTH 24.1 % (11.5-14.5)
[2018-11-06 06:19] LABS: IRON 23 ug/dL (37-170)
[2018-11-06 06:24] LABS: ALB/GLOB RATIO 0.9 (1.0-2.1); ALBUMIN 2.5 g/dL (3.5-5.0); ALT/SGPT 12 U/L (9-52); AST/SGOT 25 U/L (14-36); BLOOD UREA NITROGEN 6 mg/dL (7-17); CALCIUM 7.5 mg/dl (8.6-10.4); GFR NON-AFRICAN AMERICAN > 60
[2018-11-06 06:29] LABS: % IRON SATURATION 8 (20-55); TOTAL IRON BINDING CAPACITY 279 ug/dL (250-450)
[2018-11-06 06:53] LABS: HEPATITIS B SURFACE AG Negative (NEGATIVE)
[2018-11-06 06:59] LABS: HEPATITIS A IGM NEGATIVE (NEGATIVE); HEPATITIS B CORE AB NEGATIVE (NEGATIVE)
[2018-11-06 07:11] LABS: HEPATITIS C ANTIBODY NEGATIVE (NEGATIVE)
[2018-11-06] MEDS: Pantoprazole 40 mg EC Tab PO SCH (09:06)
[2018-11-06] MEDS: Potassium Chloride 20 mEq ER Tab PO SCH (09:06)
[2018-11-06] MEDS: Multiple Vitamins Tab PO SCH (09:06)
[2018-11-06] MEDS: Verapamil 180 mg ER Tab PO SCH (09:06)
[2018-11-06] MEDS: cefTRIAXone IV 1 gm in Dextros 50 ML IVPB SCH (09:08)
--- NOTE | 2018-11-06 09:43 | CP.PCM.PN ---
Subjective - Date & Time of Evaluation Date of Evaluation: 11/06/18 Time of Evaluation: 09:40 - Subjective Subjective: Tearful/sad. Denies dyspnea or abdominal pain CT- cirrhotic appearing liver. Minimal ascites. Pleural effusions Hepatitis profile and IZABELLA negative + h/o ETOH as documented yesterdays's note Objective - Vital Signs/Intake and Output Vital Signs (last 24 hours): Temp Pulse Resp BP Pulse Ox 98.3 F 89 15 107/74 99 11/06/18 06:30 11/06/18 07:43 11/06/18 07:43 11/06/18 07:45 11/06/18 07:43 Intake and Output: 11/06/18 11/06/18 06:59 18:59 Intake Total 1780 220 Output Total 550 0 Balance 1230 220 - Medications Medications: Current Medications Sodium Chloride (Sodium Chloride 0.9%) 1,000 mls @ 100 mls/hr IV .Q10H [facility] Last Admin: 11/05/18 22:30 Dose: Not Given Vancomycin HCl 1 gm/ Sodium (Chloride) 250 mls @ 166.7 mls/hr IVPB Q24H [facility]; Protocol Last Admin: 11/05/18 22:45 Dose: 166.7 mls/hr Ceftriaxone Sodium (Rocephin Iv 1 Gm Duplex) 50 mls @ 100 mls/hr IVPB DAILY [facility]; Protocol Last Admin: 11/06/18 09:08 Dose: 100 mls/hr Multivitamins (Hexavitamin) 1 tab PO DAILY [facility] Last Admin: 11/06/18 09:06 Dose: 1 tab Pantoprazole Sodium (Protonix Ec Tab) 40 mg PO DAILY [facility] Last Admin: 11/06/18 09:06 Dose: 40 mg Potassium Chloride (K-Dur 20 Meq Er Tab) 40 meq PO DAILY [facility] Stop: 11/07/18 10:01 Last Admin: 11/06/18 09:06 Dose: 40 meq Verapamil HCl (Calan Sr Tab) 180 mg PO DAILY [facility] Last Admin: 11/06/18 09:06 Dose: 180 mg - Labs Labs: 11/06/18 05:54 11/06/18 05:54 PT 16.7 SECONDS (9.7-12.2) H 11/05/18 09:04 INR 1.5 11/05/18 09:04 APTT 35 SECONDS (21-34) H 11/05/18 09:04 - Constitutional Appears: Chronically Ill - Head Exam Head Exam: NORMOCEPHALIC - Eye Exam Eye Exam: absent: Scleral icterus - Respiratory Exam Respiratory Exam: Clear to Ausculation Bilateral - Cardiovascular Exam Cardiovascular Exam: REGULAR RHYTHM - GI/Abdominal Exam GI & Abdominal Exam: Soft. absent: Tenderness, Mass Assessment and Plan (1) Anemia Assessment & Plan: stable EGD and colonoscopy completed Status: Acute (2) Rapid atrial fibrillation Status: Acute (3) Cirrhosis Assessment & Plan: Undetermined cause, most likely alcohol related Workup in progress Status: Acute
--- NOTE | 2018-11-06 09:54 | RAD ---
Chest x-ray single frontal view HISTORY: Effusion. COMPARISON: 11/05/2018 Findings: Again identified is a moderate left and small right pleural effusion. Consolidative opacification in the left mid to lower lung zone and right lung base. Cardiomegaly. Left-sided pacemaker. Enlarged ectatic aorta. Biapical pleural thickening with upper lobe granulomatous changes. Degenerative changes in the spine and shoulders. Surgical clips project over the upper abdomen. Impression: Again identified is a moderate left and small right pleural effusion. Consolidative opacification in the left mid to lower lung zone and right lung base. Cardiomegaly. Left-sided pacemaker. Enlarged ectatic aorta. Biapical pleural thickening with upper lobe granulomatous changes. Degenerative changes in the spine and shoulders. Surgical clips project over the upper abdomen.
[2018-11-06] MEDS ORDERED: cefTRIAXone IV 1 gm in Dextros 50 ML IVPB SCH (10:00)
[2018-11-06] MEDS: Sodium Chloride 0.9% 1,000 ML IV SCH (11:25)
--- NOTE | 2018-11-06 12:08 | CP.PCM.PN ---
Subjective - Date & Time of Evaluation Date of Evaluation: 11/06/18 Time of Evaluation: 12:04 - Subjective Subjective: Patient seen and examined at bedside. Patient toelrating oral verapamil. breathing improved, afebrile Objective - Vital Signs/Intake and Output Vital Signs (last 24 hours): Temp Pulse Resp BP Pulse Ox 97.6 F 81 24 98/53 L 100 11/06/18 08:00 11/06/18 10:58 11/06/18 10:58 11/06/18 10:58 11/06/18 10:58 Intake and Output: 11/06/18 11/06/18 06:59 18:59 Intake Total 1780 980 Output Total 550 700 Balance 1230 280 - Medications Medications: Current Medications Vancomycin HCl 1 gm/ Sodium (Chloride) 250 mls @ 166.7 mls/hr IVPB Q24H [facility]; Protocol Last Admin: 11/05/18 22:45 Dose: 166.7 mls/hr Ceftriaxone Sodium (Rocephin Iv 1 Gm Duplex) 50 mls @ 100 mls/hr IVPB DAILY [facility]; Protocol Last Admin: 11/06/18 09:08 Dose: 100 mls/hr Multivitamins (Hexavitamin) 1 tab PO DAILY [facility] Last Admin: 11/06/18 09:06 Dose: 1 tab Pantoprazole Sodium (Protonix Ec Tab) 40 mg PO DAILY [facility] Last Admin: 11/06/18 09:06 Dose: 40 mg Potassium Chloride (K-Dur 20 Meq Er Tab) 40 meq PO DAILY [facility] Stop: 11/07/18 10:01 Last Admin: 11/06/18 09:06 Dose: 40 meq Verapamil HCl (Calan Sr Tab) 180 mg PO DAILY [facility] Last Admin: 11/06/18 09:06 Dose: 180 mg - Labs Labs: 11/06/18 05:54 11/06/18 05:54 PT 16.7 SECONDS (9.7-12.2) H 11/05/18 09:04 INR 1.5 11/05/18 09:04 APTT 35 SECONDS (21-34) H 11/05/18 09:04 - Constitutional Appears: Well, Non-toxic, No Acute Distress - Head Exam Head Exam: ATRAUMATIC, NORMAL INSPECTION - Eye Exam Eye Exam: EOMI - ENT Exam ENT Exam: Mucous Membranes Moist - Neck Exam Neck Exam: Full ROM - Respiratory Exam Respiratory Exam: Clear to Ausculation Bilateral, Rales, NORMAL BREATHING PATTERN. absent: Wheezes - Cardiovascular Exam Cardiovascular Exam: Irregular Rhythm, +S1, +S2 - GI/Abdominal Exam GI & Abdominal Exam: Normal Bowel Sounds - Extremities Exam Extremities Exam: Normal Inspection - Back Exam Back Exam: NORMAL INSPECTION - Neurological Exam Neurological Exam: Alert, Awake, Oriented x3 - Skin Skin Exam: Normal Color Assessment and Plan - Assessment and Plan (Free Text) Assessment: Pleural effusion: s/p draiange by IR, f/u fluid analysis -A-fib: rate controlled with oral verapamil, AC as per cardiology -Fever overnight:continue abx as per ID -PT/OT, activity OOB as danyelle -Patient remains hemodynamically stable. -CXR reveals pleural fluid, will d/c IVF -continue to monitor
--- NOTE | 2018-11-06 16:59 | CP.PCM.PN ---
Subjective - Date & Time of Evaluation Date of Evaluation: 11/06/18 Time of Evaluation: 12:15 - Subjective Subjective: Patient improving still same sob, fever, cxr reveled less pleural effusion. Patient depress, severely debilitated. Continue present rx. Objective - Vital Signs/Intake and Output Vital Signs (last 24 hours): Temp Pulse Resp BP Pulse Ox 98.1 F 72 26 H 103/53 L 98 11/06/18 12:00 11/06/18 16:00 11/06/18 16:00 11/06/18 15:58 11/06/18 16:00 Intake and Output: 11/06/18 11/06/18 11:59 23:59 Intake Total 2165 240 Output Total 1050 0 Balance 1115 240 - Medications Medications: Current Medications Vancomycin HCl 1 gm/ Sodium (Chloride) 250 mls @ 166.7 mls/hr IVPB Q24H [facility]; Protocol Last Admin: 11/05/18 22:45 Dose: 166.7 mls/hr Ceftriaxone Sodium (Rocephin Iv 1 Gm Duplex) 50 mls @ 100 mls/hr IVPB DAILY [facility]; Protocol Last Admin: 11/06/18 09:08 Dose: 100 mls/hr Multivitamins (Hexavitamin) 1 tab PO DAILY [facility] Last Admin: 11/06/18 09:06 Dose: 1 tab Pantoprazole Sodium (Protonix Ec Tab) 40 mg PO DAILY [facility] Last Admin: 11/06/18 09:06 Dose: 40 mg Potassium Chloride (K-Dur 20 Meq Er Tab) 40 meq PO DAILY [facility] Stop: 11/07/18 10:01 Last Admin: 11/06/18 09:06 Dose: 40 meq Verapamil HCl (Calan Sr Tab) 180 mg PO DAILY [facility] Last Admin: 11/06/18 09:06 Dose: 180 mg - Labs Labs: 11/06/18 05:54 11/06/18 05:54 PT 16.7 SECONDS (9.7-12.2) H 11/05/18 09:04 INR 1.5 11/05/18 09:04 APTT 35 SECONDS (21-34) H 11/05/18 09:04 - Constitutional Appears: Chronically Ill - Head Exam Head Exam: ATRAUMATIC, NORMAL INSPECTION, NORMOCEPHALIC - Eye Exam Eye Exam: Normal appearance - ENT Exam ENT Exam: Normal Exam - Neck Exam Neck Exam: Full ROM - Respiratory Exam Respiratory Exam: Decreased Breath Sounds - Cardiovascular Exam Cardiovascular Exam: Irregular Rhythm, +S1, +S2 - GI/Abdominal Exam GI & Abdominal Exam: Soft, Normal Bowel Sounds - Extremities Exam Extremities Exam: Normal Inspection - Neurological Exam Neurological Exam: Alert, Awake, Oriented x3 - Psychiatric Exam Psychiatric exam: Depressed - Skin Skin Exam: Pallor Assessment and Plan (1) Rapid atrial fibrillation Status: Acute (2) Symptomatic anemia Status: Acute (3) Atrial fibrillation Status: Acute (4) Hypertensive cardiovascular disease Status: Acute (5) Wide-complex tachycardia Status: Acute (6) Hypertension Status: Chronic (7) Pericardial effusion Status: Acute (8) Cardiac tamponade Status: Acute (9) Pleural effusion Status: Acute
--- NOTE | 2018-11-06 21:17 | CP.PCM.PN ---
Subjective - Date & Time of Evaluation Date of Evaluation: 11/04/18 Time of Evaluation: 09:20 - Subjective Subjective: Patient seen and examined. Denies chest pain and dyspnea Physical examination - Additional Findings Additional findings: - Constitutional Appears: Non-toxic, No Acute Distress - Head Exam Head Exam: ATRAUMATIC, NORMAL INSPECTION - Eye Exam Eye Exam: EOMI, Normal appearance - ENT Exam ENT Exam: Mucous Membranes Moist - Respiratory Exam Respiratory Exam: Clear to Ausculation Bilateral. absent: Decreased Breath Sounds, Rales, Rhonchi, Wheezes, Stridor - Cardiovascular Exam Cardiovascular Exam: REGULAR RHYTHM, +S1, +S2 Additional comments: Dressing on Xyphoid Process, Clean Dry and Intact. No active bleeding, no hematoma - GI/Abdominal Exam GI & Abdominal Exam: Soft, Normal Bowel Sounds. absent: Distended, Firm, Guarding, Rigid, Tenderness - Extremities Exam Extremities Exam: Full ROM, Normal Capillary Refill. absent: Calf Tenderness, pedal edema - Back Exam Back Exam: NORMAL INSPECTION - Neurological Exam Neurological Exam: Alert, Awake - Psychiatric Exam Psychiatric exam: Normal Affect, Normal Mood - Skin Skin Exam: Dry, Normal Color, Warm Additional comments: Left upper arm thrombophlebitis with minimal induration, no swelling, no erythema, minimally tender Pulses 2+ distally, good capillary refill, sensation and motor function intact Assessment and Plan - Assessment and Plan (Free Text) Assessment: 62 F w/ PMhx of Afib & pacemaker (on eliquis at home) currently admitted to ICU for monitoring for weakness/ GI bleed, had episode of afib w/ RVR, large p ericardial effusion s/p POD # 9 for pericardial window. Co-reg restarted, HR controlled. Pt with anemia, normocytic, no GI bleeding noted on EGD or colonoscopy. Plan: Pericardial Tamponade POD # 9 of pericardial Window 10/25/18 ECHO (10/26/18): Normal LV Systolic Function, EF 55-60%, mild TR, Mild Pulm HTN, Small loculated Ant. pericardial effusion, small-moderate loculated posterior pericardial effusion. There are no echocardiographic indications of cardiac tamponade. Consults: CT Surgeon (Dr. Houston), Cardiology (Dr. Sultana), Hematology (Dr. Burgess) - All recs appreciated Pericardial Fluid, Gram Stain - Negative and no malignant cells. Meds: Carvedilol 3.125 PO BID Home Enalapril 20mg PO Daily (Held due to Hypotension) Pericarditis Etiology Unknown ID Consult (Dr. Perez), Recs Appreciated CMV - POSITIVE IgG, Intermediate IgM A-fib w/ Pacemaker. Rate control w/ Carvedilol EKG (10/31/18): NSR with no acute ST/T wave changes. Meds: Carvedilol 3.125 PO BID Eliquis 5 mg PO BID (HELD, due to GI Bleed) Cardiology, Dr. Sultana, consulted. No anticoagulation/ASA at this time. F/u recs Pt to have Watchman Procedure done outpt Normocytic Anemia Likely iron def. Anemia 2/2 to chronic GI Blood loss Meds: Ferrlecit 125mg IV Daily for 8 doses (Started on 10/27/18) GI Bleed Stool Occult Blood (10/23/18) - POSITIVE Stool Occult Blood (10/30/18) - NEGATIVE Consults: Hematology (Dr. Burgess), GI (Dr. Mcrae/Fernando) - All recs appreciated HOLD Antiplatelets/AntiCoags. EGD showed gastritis, biopsied, and normal duodenum which was also biopsied. Biopsy results: positvie for Mild chronic active gastritis in antrum. Colonoscopy showed nonbleeding internal hemorrhoids. No specimens collected. Entire examined colon is normal. Advance diet as tolerated. Repeat in 10 years. Meds: Protonix 40mg PO Left Upper Arm Superficial Plebitis: Continue Ice Packs for 1 hour every 4 hours NO NSAIDS for now considering the workup for Anemia is pending Venous Doppler Left Arm 11/01/18 shows left cephalic vein thrombophlebitis. No ev idence of DVT. Hypomagnesemia 1.7 today MgSulfate 2 g IVPB Will continue to monitor and replete as necessary UTI Patient is asymptomatic, no intervention. UA (10/25/18): POSITIVE Leuk Es, WBC, Urine Culture (10/26/18) - NEGATIVE Hypertension. Cardiology Consult (Dr. Sultana), Recs appreciated Meds: Carvedilol 3.125 PO BID Home Enalapril 20mg PO Daily (Held due to Hypotension) PPx: Protonix SCD's Compression stocking and elevation of lower extremities to decrease edema, improving Chemical VTE proph Contraindicated due to GI Bleed HHD Objective - Vital Signs/Intake and Output Vital Signs (last 24 hours): Temp Pulse Resp BP Pulse Ox 101.6 F H 73 20 96/46 L 98 11/06/18 18:03 11/06/18 20:00 11/06/18 20:00 11/06/18 19:58 11/06/18 20:00 Intake and Output: 11/06/18 11/07/18 18:59 06:59 Intake Total 1460 Output Total 700 Balance 760 - Medications Medications: Current Medications Vancomycin HCl 1 gm/ Sodium (Chloride) 250 mls @ 166.7 mls/hr IVPB Q24H [facility]; Protocol Last Admin: 11/05/18 22:45 Dose: 166.7 mls/hr Cefepime HCl 1 gm/ Dextrose 50 mls @ 100 mls/hr IVPB Q12H [facility]; Protocol Multivitamins (Hexavitamin) 1 tab PO DAILY [facility] Last Admin: 11/06/18 09:06 Dose: 1 tab Pantoprazole Sodium (Protonix Ec Tab) 40 mg PO DAILY [facility] Last Admin: 11/06/18 09:06 Dose: 40 mg Potassium Chloride (K-Dur 20 Meq Er Tab) 40 meq PO DAILY [facility] Stop: 11/07/18 10:01 Last Admin: 11/06/18 09:06 Dose: 40 meq Verapamil HCl (Calan Sr Tab) 180 mg PO DAILY [facility] Last Admin: 11/06/18 09:06 Dose: 180 mg - Labs Labs: 11/06/18 05:54 11/06/18 05:54 PT 16.7 SECONDS (9.7-12.2) H 11/05/18 09:04 INR 1.5 11/05/18 09:04 APTT 35 SECONDS (21-34) H 11/05/18 09:04 Assessment and Plan - Assessment and Plan (Free Text) Assessment: 62 F w/ PMhx of Afib & pacemaker (on eliquis at home) currently admitted to ICU for monitoring for weakness/ GI bleed, had episode of afib w/ RVR, large pericardial effusion s/p for pericardial window. Co-reg restarted, HR controlled. Pt with anemia, normocytic, no GI bleeding noted on EGD or colonoscopy. Plan: S/P Pericardial Tamponade ECHO (10/26/18): Normal LV Systolic Function, EF 55-60%, mild TR, Mild Pulm HTN, Small loculated Ant. pericardial effusion, small-moderate loculated posterior pericardial effusion. There are no echocardiographic indications of cardiac tamponade. Consults: CT Surgeon (Dr. Houston), Hematology (Dr. Burgess) - All recs appreciated Pericardial Fluid, Gram Stain - Negative and no malignant cells. Meds: Carvedilol 3.125 PO BID Home Enalapril 20mg PO Daily (Held due to Hypotension) Pericarditis Etiology Unknown ID Consult (Dr. Perez), Recs Appreciated CMV - POSITIVE IgG, Intermediate IgM A-fib w/ Pacemaker. Rate control w/ Carvedilol EKG (10/31/18): NSR with no acute ST/T wave changes. Meds: Carvedilol 3.125 PO BID Eliquis 5 mg PO BID (HELD, due to GI Bleed) Cardiology, Dr. Sultana, consulted. No anticoagulation/ASA at this time. F/u recs Pt to have Watchman Procedure done outpt Normocytic Anemia Likely iron def. Anemia 2/2 to chronic GI Blood loss Meds: Ferrlecit 125mg IV Daily for 8 doses (Started on 10/27/18) GI Bleed Stool Occult Blood (10/23/18) - POSITIVE Stool Occult Blood (10/30/18) - NEGATIVE Consults: Hematology (Dr. Burgess), GI (Dr. Mcrae/Fernando) - All recs appreciated HOLD Antiplatelets/AntiCoags. EGD showed gastritis, biopsied, and normal duodenum which was also biopsied. Biopsy results: positvie for Mild chronic active gastritis in antrum. Colonoscopy showed nonbleeding internal hemorrhoids. No specimens collected. Entire examined colon is normal. Advance diet as tolerated. Repeat in 10 years. Meds: Protonix 40mg PO Left Upper Arm Superficial Plebitis: Continue Ice Packs for 1 hour every 4 hours NO NSAIDS for now considering the workup for Anemia is pending Venous Doppler Left Arm 11/01/18 shows left cephalic vein thrombophlebitis. No evidence of DVT. Hypomagnesemia 1.7 today MgSulfate 2 g IVPB Will continue to monitor and replete as necessary UTI Patient is asymptomatic, no intervention. UA (10/25/18): POSITIVE Leuk Es, WBC, Urine Culture (10/26/18) - NEGATIVE Hypertension. Meds: Carvedilol 3.125 PO BID Home Enalapril 20mg PO Daily (Held due to Hypotension) PPx: Protonix SCD's Compression stocking and elevation of lower extremities to decrease edema, improving Chemical VTE proph Contraindicated due to GI Bleed HHD
--- NOTE | 2018-11-06 21:20 | CP.PCM.PN ---
Subjective - Date & Time of Evaluation Date of Evaluation: 11/05/18 Time of Evaluation: 19:30 - Subjective Subjective: ICU Note This is a 62 y o female with PMhx pacemaker, A-fib, who presented to the ED with generalized weakness, dizziness, and near syncope. Was admitted for management of A-fib with RVR, anemia. S/p pericardial window for pericardial effusion with CT surgery 2 weeks prior. Reason for ICU consult was for A-fib with RVR and hypotension. FORM STRIPPER was called today on tele floor for pt c/o chest pressure and HR in 140s. BP was noted to be 90s/60s. Pt was given dose of sublingual nitroglycerin with improvement in symptoms. EKG during [facility]M [facility] demonstrated A-fib with RVR, HR in 130s. Pt was given IV Digoxin. I recommended D-dimer and heparin drip to be ordered, for concern of PE. On my exam pt was tachycardic in 120s- 130s and hypotensive. Pt stated on exam that her chest tightness was improved, but that she was worried about her heart rate. Pt appeared anxious on exam. PMhx: as noted above PSurgHx: s/p Pericardial window 2 wks prior during current admission for pericardial effusion, s/p pacemaker placement Allergies: NKDA Current meds: reviewed as per STACI Boss hx: denies Soc hx: denies smoking, EtOH or illicit drug use PMD: Dr. Wheeler Review of Systems - Constitutional Constitutional: absent: Chills, Fatigue, Fever, Malaise - Cardiovascular Cardiovascular: absent: Chest Pain, Dyspnea on Exertion, Edema, Palpitations, Syncope - Respiratory Respiratory: absent: Cough, Dyspnea, Wheezing - Gastrointestinal Gastrointestinal: absent: Abdominal Pain, Constipation, Diarrhea, Nausea, Vomiting Physical Exam - Constitutional Appears: Non-toxic, No Acute Distress - Head Exam Head Exam: ATRAUMATIC, NORMOCEPHALIC - Eye Exam Eye Exam: EOMI, Normal appearance, PERRL - ENT Exam ENT Exam: Mucous Membranes Moist - Respiratory Exam Respiratory Exam: Clear to Auscultation Bilateral, NORMAL BREATHING PATTERN - Cardiovascular Exam Cardiovascular Exam: REGULAR RHYTHM, +S1, +S2. absent: Gallop, Rubs, Systolic Murmur - GI/Abdominal Exam GI & Abdominal Exam: Normal Bowel Sounds, Soft. absent: Distended, Organomegaly, Tenderness - Extremities Exam Extremities exam: Positive for: full ROM, normal capillary refill, normal inspection, pedal pulses present - Neurological Exam Neurological exam: Alert, CN II-XII Intact, Oriented x3 - Skin Skin Exam: Dry, Intact, Warm Assessment & Plan - Assessment and Plan (Free Text) Assessment: 62 y o female with PMhx pacemaker, A-fib, who presented to the ED with generalized weakness, dizziness, and near syncope. Was admitted for management of A-fib with RVR, anemia. Reason for ICU consult was for A-fib with RVR and hypotension. Plan: -2.5 mg IVP x2 of Verapamil with improvement in HR -Started Verapamil PO melvin -IVF bolus x 2 L with improvement in BP -Spoke with CT Surgery (Dr. Ohara) about case, and CT chest finding today of L-sided pleural effusion. Aware, recommended eval by surgical residents for possible thoracentesis. Pt underwent thoracentesis of pleural effusion with Dr. Pierce (IR) today, 800 cc serosanguinous fluid aspirated, no drains placed. -To be monitored in ICU post-procedure. Critical Care/ICU time 40 minutes Objective - Vital Signs/Intake and Output Vital Signs (last 24 hours): Temp Pulse Resp BP Pulse Ox 101.6 F H 73 20 96/46 L 98 11/06/18 18:03 11/06/18 20:00 11/06/18 20:00 11/06/18 19:58 11/06/18 20:00 Intake and Output: 11/06/18 11/07/18 18:59 06:59 Intake Total 1460 Output Total 700 Balance 760 - Medications Medications: Current Medications Vancomycin HCl 1 gm/ Sodium (Chloride) 250 mls @ 166.7 mls/hr IVPB Q24H [facility]; Protocol Last Admin: 11/05/18 22:45 Dose: 166.7 mls/hr Cefepime HCl 1 gm/ Dextrose 50 mls @ 100 mls/hr IVPB Q12H [facility]; Protocol Multivitamins (Hexavitamin) 1 tab PO DAILY [facility] Last Admin: 11/06/18 09:06 Dose: 1 tab Pantoprazole Sodium (Protonix Ec Tab) 40 mg PO DAILY [facility] Last Admin: 11/06/18 09:06 Dose: 40 mg Potassium Chloride (K-Dur 20 Meq Er Tab) 40 meq PO DAILY [facility] Stop: 11/07/18 10:01 Last Admin: 11/06/18 09:06 Dose: 40 meq Verapamil HCl (Calan Sr Tab) 180 mg PO DAILY [facility] Last Admin: 11/06/18 09:06 Dose: 180 mg - Labs Labs: 11/06/18 05:54 11/06/18 05:54 PT 16.7 SECONDS (9.7-12.2) H 11/05/18 09:04 INR 1.5 11/05/18 09:04 APTT 35 SECONDS (21-34) H 11/05/18 09:04
[2018-11-06 21:23] LABS: SQUAMOUS EPITHIAL < 1 /hpf (0-5); URINE BACTERIA RARE (<OCC); URINE BILIRUBIN NEGATIVE (NEGATIVE); URINE BLOOD NEGATIVE (NEGATIVE); URINE CLARITY Clear (Clear); URINE COLOR Yellow (YELLOW); URINE GLUCOSE (UA) 1+ mg/dL (Normal); URINE LEUKOCYTE ESTERASE NEG Leu/uL (Negative); URINE PROTEIN NEGATIVE (NEGATIVE); URINE UROBILINOGEN NORMAL mg/dL (0.2-1.0)
--- NOTE | 2018-11-06 21:24 | CP.PCM.PN ---
Subjective - Date & Time of Evaluation Date of Evaluation: 11/06/18 Time of Evaluation: 21:21 - Subjective Subjective: Patient seen and examined at bedside. Patient had an episode of fever denies chest pain and dyspnea Objective - Vital Signs/Intake and Output Vital Signs (last 24 hours): Temp Pulse Resp BP Pulse Ox 97.6 F 81 24 98/53 L 100 11/06/18 08:00 11/06/18 10:58 11/06/18 10:58 11/06/18 10:58 11/06/18 10:58 Intake and Output: 11/06/18 11/06/18 06:59 18:59 Intake Total 1780 980 Output Total 550 700 Balance 1230 280 - Medications Medications: Current Medications Vancomycin HCl 1 gm/ Sodium (Chloride) 250 mls @ 166.7 mls/hr IVPB Q24H [facility]; Protocol Last Admin: 11/05/18 22:45 Dose: 166.7 mls/hr Ceftriaxone Sodium (Rocephin Iv 1 Gm Duplex) 50 mls @ 100 mls/hr IVPB DAILY [facility]; Protocol Last Admin: 11/06/18 09:08 Dose: 100 mls/hr Multivitamins (Hexavitamin) 1 tab PO DAILY [facility] Last Admin: 11/06/18 09:06 Dose: 1 tab Pantoprazole Sodium (Protonix Ec Tab) 40 mg PO DAILY [facility] Last Admin: 11/06/18 09:06 Dose: 40 mg Potassium Chloride (K-Dur 20 Meq Er Tab) 40 meq PO DAILY [facility] Stop: 11/07/18 10:01 Last Admin: 11/06/18 09:06 Dose: 40 meq Verapamil HCl (Calan Sr Tab) 180 mg PO DAILY [facility] Last Admin: 11/06/18 09:06 Dose: 180 mg - Labs Labs: 11/06/18 05:54 11/06/18 05:54 PT 16.7 SECONDS (9.7-12.2) H 11/05/18 09:04 INR 1.5 11/05/18 09:04 APTT 35 SECONDS (21-34) H 11/05/18 09:04 - Constitutional Appears: Well, Non-toxic, No Acute Distress - Head Exam Head Exam: ATRAUMATIC, NORMAL INSPECTION - Eye Exam Eye Exam: EOMI - ENT Exam ENT Exam: Mucous Membranes Moist - Neck Exam Neck Exam: Full ROM - Respiratory Exam Respiratory Exam: Clear to Ausculation Bilateral, Rales, NORMAL BREATHING PATTERN. absent: Wheezes - Cardiovascular Exam Cardiovascular Exam: Irregular Rhythm, +S1, +S2 - GI/Abdominal Exam GI & Abdominal Exam: Normal Bowel Sounds - Extremities Exam Extremities Exam: Normal Inspection - Back Exam Back Exam: NORMAL INSPECTION - Neurological Exam Neurological Exam: Alert, Awake, Oriented x3 - Skin Skin Exam: Normal Color Assessment and Plan - Assessment and Plan (Free Text) Assessment: 62 F with complex hx A Fib GI bleeding Pericardial effusion Pleural effusion ? Cirrhosis on CT scan ? Bleeding disorder Abnormal viral titres Now Fever ???Etiology ID, Hematology, Critical care, Medicine and EP on board Objective - Vital Signs/Intake and Output Vital Signs (last 24 hours): Temp Pulse Resp BP Pulse Ox 101.6 F H 73 20 96/46 L 98 11/06/18 18:03 11/06/18 20:00 11/06/18 20:00 11/06/18 19:58 11/06/18 20:00 Intake and Output: 11/06/18 11/07/18 18:59 06:59 Intake Total 1460 Output Total 700 Balance 760 - Medications Medications: Current Medications Vancomycin HCl 1 gm/ Sodium (Chloride) 250 mls @ 166.7 mls/hr IVPB Q24H [facility]; Protocol Last Admin: 11/05/18 22:45 Dose: 166.7 mls/hr Cefepime HCl 1 gm/ Dextrose 50 mls @ 100 mls/hr IVPB Q12H [facility]; Protocol Multivitamins (Hexavitamin) 1 tab PO DAILY [facility] Last Admin: 11/06/18 09:06 Dose: 1 tab Pantoprazole Sodium (Protonix Ec Tab) 40 mg PO DAILY [facility] Last Admin: 11/06/18 09:06 Dose: 40 mg Potassium Chloride (K-Dur 20 Meq Er Tab) 40 meq PO DAILY [facility] Stop: 11/07/18 10:01 Last Admin: 11/06/18 09:06 Dose: 40 meq Verapamil HCl (Calan Sr Tab) 180 mg PO DAILY [facility] Last Admin: 11/06/18 09:06 Dose: 180 mg - Labs Labs: 11/06/18 05:54 11/06/18 05:54 PT 16.7 SECONDS (9.7-12.2) H 11/05/18 09:04 INR 1.5 11/05/18 09:04 APTT 35 SECONDS (21-34) H 11/05/18 09:04
--- NOTE | 2018-11-06 22:47 | CP.PCM.PN ---
Subjective - Date & Time of Evaluation Date of Evaluation: 11/06/18 Time of Evaluation: 18:00 - Subjective Subjective: Comfortable, had fever today. Objective - Vital Signs/Intake and Output Vital Signs (last 24 hours): Temp Pulse Resp BP Pulse Ox 98.7 F 73 20 96/46 L 98 11/06/18 19:03 11/06/18 20:00 11/06/18 20:00 11/06/18 19:58 11/06/18 20:00 Intake and Output: 11/06/18 11/07/18 18:59 06:59 Intake Total 1460 Output Total 700 Balance 760 - Medications Medications: Current Medications Vancomycin HCl 1 gm/ Sodium (Chloride) 250 mls @ 166.7 mls/hr IVPB Q24H [facility]; Protocol Last Admin: 11/06/18 22:26 Dose: 166.7 mls/hr Cefepime HCl 1 gm/ Dextrose 50 mls @ 100 mls/hr IVPB Q12H [facility]; Protocol Last Admin: 11/06/18 22:24 Dose: 100 mls/hr Multivitamins (Hexavitamin) 1 tab PO DAILY [facility] Last Admin: 11/06/18 09:06 Dose: 1 tab Pantoprazole Sodium (Protonix Ec Tab) 40 mg PO DAILY [facility] Last Admin: 11/06/18 09:06 Dose: 40 mg Potassium Chloride (K-Dur 20 Meq Er Tab) 40 meq PO DAILY [facility] Stop: 11/07/18 10:01 Last Admin: 11/06/18 09:06 Dose: 40 meq Verapamil HCl (Calan Sr Tab) 180 mg PO DAILY [facility] Last Admin: 11/06/18 09:06 Dose: 180 mg - Labs Labs: 11/06/18 05:54 11/06/18 05:54 PT 16.7 SECONDS (9.7-12.2) H 11/05/18 09:04 INR 1.5 11/05/18 09:04 APTT 35 SECONDS (21-34) H 11/05/18 09:04 - Head Exam Head Exam: ATRAUMATIC - Eye Exam Eye Exam: Normal appearance - ENT Exam ENT Exam: Mucous Membranes Dry - Respiratory Exam Respiratory Exam: Decreased Breath Sounds - Cardiovascular Exam Cardiovascular Exam: +S1, +S2 - GI/Abdominal Exam GI & Abdominal Exam: Normal Bowel Sounds Assessment and Plan (1) Coagulopathy Assessment & Plan: prolonged PT/PTT - will give vit K anticoagulation on hold imaging suggestive of cirrhosis Status: Acute (2) Anemia Assessment & Plan: prior iron deficiency anemia; s/p supplementation EGD/Colonoscopy - gastritis and internal hemorrhoids; no acute bleeding s/p PRBC transfusion Status: Acute (3) Pericardial effusion Assessment & Plan: hemorrhagic cytology negative for malignancy infectious w/u in progress and appreciated anticoagulation on hold Status: Acute (4) Platelet dysfunction Assessment & Plan: resolved secondary to anticoagulation repeat plt function test normal Status: Acute
[2018-11-07 06:37] LABS: BASO # 0.1 K/uL (0.0-0.2); BASO % 1.1 % (0.0-2.0); EOS # 0.1 K/uL (0.0-0.7); EOS % 1.2 % (0.0-4.0); HEMOGLOBIN 9.8 g/dL (11.0-16.0); LYMPH # 1.7 K/uL (1.0-4.3); LYMPH % 17.1 % (20.0-40.0); MEAN CORPUSCULAR HEMOGLOBIN 27.1 pg (27.0-31.0); MEAN CORPUSCULAR HGB CONC 31.6 g/dL (33.0-37.0); MEAN PLATELET VOLUME 8.2 fL (7.2-11.7); MONO # 1.1 K/uL (0.0-0.8); MONO % 10.9 % (0.0-10.0); NEUT # 7.1 K/uL (1.8-7.0); NEUT % 69.7 % (50.0-75.0); NRBC % 0.2 % (0.0-2.0); RBC 3.61 Mil/uL (3.80-5.20); RED CELL DISTRIBUTION WIDTH 23.9 % (11.5-14.5); WHITE BLOOD COUNT 10.2 K/uL (4.8-10.8)
[2018-11-07 06:57] LABS: ALB/GLOB RATIO 0.8 (1.0-2.1); ALBUMIN 2.5 g/dL (3.5-5.0); ALT/SGPT 17 U/L (9-52); AST/SGOT 39 U/L (14-36); BLOOD UREA NITROGEN 7 mg/dL (7-17); CALCIUM 7.5 mg/dl (8.6-10.4); GFR NON-AFRICAN AMERICAN > 60
[2018-11-07] MEDS: Potassium Chloride 20 mEq ER Tab PO SCH (09:42)
[2018-11-07] MEDS: Multiple Vitamins Tab PO SCH (09:42)
[2018-11-07] MEDS: Pantoprazole 40 mg EC Tab PO SCH (09:42)
[2018-11-07] MEDS: Verapamil 180 mg ER Tab PO SCH (09:43)
--- NOTE | 2018-11-07 12:15 | CP.PCM.PN ---
Objective - Vital Signs/Intake and Output Vital Signs (last 24 hours): Temp Pulse Resp BP Pulse Ox 98.8 F 70 19 100/54 L 100 11/07/18 08:00 11/07/18 08:00 11/07/18 08:00 11/07/18 08:00 11/07/18 08:00 Intake and Output: 11/07/18 11/07/18 06:59 18:59 Intake Total 590 Output Total 1200 Balance -610 - Medications Medications: Current Medications Vancomycin HCl 1 gm/ Sodium (Chloride) 250 mls @ 166.7 mls/hr IVPB Q24H [facility]; Protocol Last Admin: 11/06/18 22:26 Dose: 166.7 mls/hr Cefepime HCl 1 gm/ Dextrose 50 mls @ 100 mls/hr IVPB Q12H [facility]; Protocol Last Admin: 11/07/18 09:46 Dose: 100 mls/hr Multivitamins (Hexavitamin) 1 tab PO DAILY [facility] Last Admin: 11/07/18 09:42 Dose: 1 tab Pantoprazole Sodium (Protonix Ec Tab) 40 mg PO DAILY [facility] Last Admin: 11/07/18 09:42 Dose: 40 mg Verapamil HCl (Calan Sr Tab) 180 mg PO DAILY [facility] Last Admin: 11/07/18 09:43 Dose: 180 mg - Labs Labs: 11/07/18 06:25 11/07/18 06:25 PT 16.7 SECONDS (9.7-12.2) H 11/05/18 09:04 INR 1.5 11/05/18 09:04 APTT 35 SECONDS (21-34) H 11/05/18 09:04
--- NOTE | 2018-11-07 23:07 | CP.PCM.PN ---
Subjective - Date & Time of Evaluation Date of Evaluation: 11/07/18 Time of Evaluation: 10:15 - Subjective Subjective: Still hypotensive at times with low grade fever, severally debilitated. Pleural effusion will follow serial cxr. A-fib: rate controlled. Continue abx Will follow cardio consult for anticoagulation and further rx for arrhythmia. The etiology of the pericardial effusion is still not clear. For further PT evaluation, consider TCU when stable for DC. Objective - Vital Signs/Intake and Output Vital Signs (last 24 hours): Temp Pulse Resp BP Pulse Ox 100.3 F H 98 H 28 H 115/56 L 97 11/07/18 20:00 11/07/18 20:00 11/07/18 20:00 11/07/18 20:00 11/07/18 20:00 Intake and Output: 11/07/18 11/07/18 11:59 23:59 Intake Total 820 240 Output Total 1900 250 Balance -1080 -10 - Medications Medications: Current Medications Vancomycin HCl 1 gm/ Sodium (Chloride) 250 mls @ 166.7 mls/hr IVPB Q24H [facility]; Protocol Last Admin: 11/06/18 22:26 Dose: 166.7 mls/hr Cefepime HCl 1 gm/ Dextrose 50 mls @ 100 mls/hr IVPB Q12H [facility]; Protocol Last Admin: 11/07/18 21:41 Dose: 100 mls/hr Multivitamins (Hexavitamin) 1 tab PO DAILY [facility] Last Admin: 11/07/18 09:42 Dose: 1 tab Pantoprazole Sodium (Protonix Ec Tab) 40 mg PO DAILY [facility] Last Admin: 11/07/18 09:42 Dose: 40 mg Verapamil HCl (Calan Sr Tab) 180 mg PO DAILY [facility] Last Admin: 11/07/18 09:43 Dose: 180 mg - Labs Labs: 11/07/18 06:25 11/07/18 06:25 PT 16.7 SECONDS (9.7-12.2) H 11/05/18 09:04 INR 1.5 11/05/18 09:04 APTT 35 SECONDS (21-34) H 11/05/18 09:04 - Constitutional Appears: Chronically Ill - Head Exam Head Exam: ATRAUMATIC, NORMAL INSPECTION, NORMOCEPHALIC - Eye Exam Eye Exam: Normal appearance - ENT Exam ENT Exam: Normal Exam - Neck Exam Neck Exam: Full ROM - Respiratory Exam Respiratory Exam: Decreased Breath Sounds - Cardiovascular Exam Cardiovascular Exam: Irregular Rhythm, +S1, +S2 - GI/Abdominal Exam GI & Abdominal Exam: Normal Bowel Sounds - Extremities Exam Extremities Exam: Full ROM, Normal Inspection - Neurological Exam Neurological Exam: Alert, Awake, CN II-XII Intact, Oriented x3 - Psychiatric Exam Psychiatric exam: Depressed, Flat Affect - Skin Skin Exam: Pallor Assessment and Plan (1) Rapid atrial fibrillation Status: Acute (2) Symptomatic anemia Status: Acute (3) Atrial fibrillation Status: Acute (4) Hypertensive cardiovascular disease Status: Acute (5) Wide-complex tachycardia Status: Acute (6) Hypertension Status: Chronic (7) Pericardial effusion Status: Acute (8) Cardiac tamponade Status: Acute (9) Pleural effusion Status: Acute
--- NOTE | 2018-11-07 23:18 | CP.PCM.PN ---
Subjective - Date & Time of Evaluation Date of Evaluation: 11/07/18 Time of Evaluation: 13:05 - Subjective Subjective: Patient seen and examined at bedside. Patient had an episode of fever denies chest pain and dyspnea at bedside Physical examination - Constitutional Appears: Well, Non-toxic, No Acute Distress - Head Exam Head Exam: ATRAUMATIC, NORMAL INSPECTION - Eye Exam Eye Exam: EOMI - ENT Exam ENT Exam: Mucous Membranes Moist - Neck Exam Neck Exam: Full ROM - Respiratory Exam Respiratory Exam: Clear to Ausculation Bilateral, Rales, NORMAL BREATHING PATTERN. absent: Wheezes - Cardiovascular Exam Cardiovascular Exam: Irregular Rhythm, +S1, +S2 - GI/Abdominal Exam GI & Abdominal Exam: Normal Bowel Sounds - Extremities Exam Extremities Exam: Normal Inspection - Back Exam Back Exam: NORMAL INSPECTION - Neurological Exam Neurological Exam: Alert, Awake, Oriented x3 - Skin Skin Exam: Normal Color Assessment and Plan - Assessment and Plan (Free Text) Assessment: 62 F with complex hx A Fib GI bleeding Pericardial effusion Pleural effusion ? Cirrhosis on CT scan ? Bleeding disorder Abnormal viral titres Now Fever ???Etiology ID, Hematology, Critical care, Medicine and EP on board Objective - Vital Signs/Intake and Output Vital Signs (last 24 hours): Temp Pulse Resp BP Pulse Ox 100.3 F H 98 H 28 H 115/56 L 97 11/07/18 20:00 11/07/18 20:00 11/07/18 20:00 11/07/18 20:00 11/07/18 20:00 Intake and Output: 11/07/18 11/08/18 18:59 06:59 Intake Total 470 Output Total 950 Balance -480 - Medications Medications: Current Medications Vancomycin HCl 1 gm/ Sodium (Chloride) 250 mls @ 166.7 mls/hr IVPB Q24H [facility]; Protocol Last Admin: 11/07/18 23:16 Dose: 166.7 mls/hr Cefepime HCl 1 gm/ Dextrose 50 mls @ 100 mls/hr IVPB Q12H [facility]; Protocol Last Admin: 11/07/18 21:41 Dose: 100 mls/hr Multivitamins (Hexavitamin) 1 tab PO DAILY [facility] Last Admin: 11/07/18 09:42 Dose: 1 tab Pantoprazole Sodium (Protonix Ec Tab) 40 mg PO DAILY [facility] Last Admin: 11/07/18 09:42 Dose: 40 mg Verapamil HCl (Calan Sr Tab) 180 mg PO DAILY [facility] Last Admin: 11/07/18 09:43 Dose: 180 mg - Labs Labs: 11/07/18 06:25 11/07/18 06:25 PT 16.7 SECONDS (9.7-12.2) H 11/05/18 09:04 INR 1.5 11/05/18 09:04 APTT 35 SECONDS (21-34) H 11/05/18 09:04
[2018-11-08 05:39] LABS: BASO # 0.1 K/uL (0.0-0.2); BASO % 0.7 % (0.0-2.0); EOS # 0.1 K/uL (0.0-0.7); EOS % 1.5 % (0.0-4.0); LYMPH # 1.5 K/uL (1.0-4.3); MEAN CORPUSCULAR HEMOGLOBIN 27.1 pg (27.0-31.0); MEAN CORPUSCULAR HGB CONC 31.6 g/dL (33.0-37.0); MEAN PLATELET VOLUME 8.3 fL (7.2-11.7); MONO % 13.3 % (0.0-10.0); NEUT % 64.5 % (50.0-75.0); RBC 3.67 Mil/uL (3.80-5.20); RED CELL DISTRIBUTION WIDTH 23.9 % (11.5-14.5); WHITE BLOOD COUNT 7.7 K/uL (4.8-10.8)
[2018-11-08 05:58] LABS: ALB/GLOB RATIO 0.8 (1.0-2.1); ALBUMIN 2.5 g/dL (3.5-5.0); ALT/SGPT 16 U/L (9-52); AST/SGOT 31 U/L (14-36); BLOOD UREA NITROGEN 7 mg/dL (7-17); CALCIUM 7.9 mg/dl (8.6-10.4); GFR NON-AFRICAN AMERICAN > 60
[2018-11-08] MEDS: Pantoprazole 40 mg EC Tab PO SCH (09:21)
[2018-11-08] MEDS: Multiple Vitamins Tab PO SCH (09:21)
[2018-11-08] MEDS: Verapamil 180 mg ER Tab PO SCH (09:21)
--- NOTE | 2018-11-08 10:18 | US ---
PROCEDURE: Date of procedure: 11/05/2018 Procedure: 1. Ultrasound-guided left thoracentesis, CPT 05625 Medications: 6cc 1% Lidocaine HISTORY: Left pleural effusion, shortness of breath TECHNIQUE: Following informed consent ,the Patients' left chest was marked. Procedure time-out was called, and the patient was placed in the sitting position and limited ultrasound showed a moderate left effusion. The patient's left back was prepped and draped in the usual sterile fashion. After the skin was anesthetized with lidocaine, a drainage catheter was advanced under ultrasound guidance into the pleural space. Ultrasound-guided thoracentesis was performed. A total of 800 cubic centimeters of serosanguinous fluid removed without complication. A Xeroform dressing was applied. IMPRESSION: Ultrasound guided left thoracentesis. There were no immediate complications.
--- NOTE | 2018-11-08 16:27 | CP.PCM.PN ---
Subjective - Date & Time of Evaluation Date of Evaluation: 11/08/18 Time of Evaluation: 16:28 - Subjective Subjective: Severely debilitated still low grade fever. Discussed with Dr Sultana will start a low dose asa. Objective - Vital Signs/Intake and Output Vital Signs (last 24 hours): Temp Pulse Resp BP Pulse Ox 99.7 F H 82 18 102/59 L 95 11/08/18 15:00 11/08/18 15:00 11/08/18 15:00 11/08/18 15:00 11/08/18 15:00 Intake and Output: 11/08/18 11/08/18 11:59 23:59 Intake Total 690 Output Total 500 Balance 190 - Medications Medications: Current Medications Acetaminophen (Tylenol 325mg Tab) 650 mg PO Q12 [facility] Aspirin (Aspirin Chewable) 81 mg PO DAILY [facility] Vancomycin HCl 1 gm/ Sodium (Chloride) 250 mls @ 166.7 mls/hr IVPB Q24H [facility]; Protocol Last Admin: 11/07/18 23:16 Dose: 166.7 mls/hr Cefepime HCl 1 gm/ Dextrose 50 mls @ 100 mls/hr IVPB Q12H [facility]; Protocol Last Admin: 11/08/18 09:21 Dose: 100 mls/hr Multivitamins (Hexavitamin) 1 tab PO DAILY [facility] Last Admin: 11/08/18 09:21 Dose: 1 tab Pantoprazole Sodium (Protonix Ec Tab) 40 mg PO DAILY [facility] Last Admin: 11/08/18 09:21 Dose: 40 mg Verapamil HCl (Calan Sr Tab) 180 mg PO DAILY [facility] Last Admin: 11/08/18 09:21 Dose: 180 mg - Labs Labs: 11/08/18 05:30 11/08/18 05:30 PT 16.7 SECONDS (9.7-12.2) H 11/05/18 09:04 INR 1.5 11/05/18 09:04 APTT 35 SECONDS (21-34) H 11/05/18 09:04 - Constitutional Appears: Chronically Ill - Head Exam Head Exam: ATRAUMATIC, NORMAL INSPECTION, NORMOCEPHALIC - Eye Exam Pupil Exam: NORMAL ACCOMODATION - ENT Exam ENT Exam: Mucous Membranes Moist - Neck Exam Neck Exam: Full ROM - Respiratory Exam Respiratory Exam: Clear to Ausculation Bilateral - Cardiovascular Exam Cardiovascular Exam: REGULAR RHYTHM, +S1, +S2 - GI/Abdominal Exam GI & Abdominal Exam: Normal Bowel Sounds - Extremities Exam Extremities Exam: Full ROM - Neurological Exam Neurological Exam: Alert, Awake, CN II-XII Intact, Oriented x3 - Psychiatric Exam Psychiatric exam: Depressed Assessment and Plan (1) Rapid atrial fibrillation Status: Acute (2) Symptomatic anemia Status: Acute (3) Atrial fibrillation Status: Acute (4) Hypertensive cardiovascular disease Status: Acute (5) Wide-complex tachycardia Status: Acute (6) Hypertension Status: Chronic (7) Pericardial effusion Status: Acute (8) Cardiac tamponade Status: Acute (9) Pleural effusion Status: Acute
--- NOTE | 2018-11-08 17:02 | CP.PCM.PN ---
Subjective - Date & Time of Evaluation Date of Evaluation: 11/08/18 Time of Evaluation: 16:59 - Subjective Subjective: INFECTIOUS DISEASE PROGRESS NOTES MARK ANTHONY DOLAN MD, FACP CHART REVIEWED PT EXAMINED CASE DISCUSSED 11/06/2018 AND 11/08/2018 CLINICALLY CARDIAC RATE APPARENTLY BETTER, BUT TEMPS ELEVATED LATE THURSDAY PM, THEN PT WAS REC/S AND ANTIBIOTICS STARTED BY ICU MD AND ADJUSTED BYSELF. TODAY PT RE SPIKING A TEMPERATURE, FOR REC/S, AND THEN START CUBICIN AND MERREM. ALSO RECXR:PA AND LL. OBSERVE FOR REPEAT FINDINGS, SEE MY ORDERES. Objective - Vital Signs/Intake and Output Vital Signs (last 24 hours): Temp Pulse Resp BP Pulse Ox 99.7 F H 82 18 102/59 L 95 11/08/18 15:00 11/08/18 15:00 11/08/18 15:00 11/08/18 15:00 11/08/18 15:00 Intake and Output: 11/08/18 11/08/18 06:59 18:59 Intake Total 690 Output Total 500 Balance 190 - Medications Medications: Current Medications Acetaminophen (Tylenol 325mg Tab) 650 mg PO Q12 [facility] Aspirin (Aspirin Chewable) 81 mg PO DAILY [facility] Meropenem 500 mg/ Sodium (Chloride) 100 mls @ 100 mls/hr IVPB Q8H [facility]; Protocol Daptomycin 400 mg/ Sodium (Chloride) 100 mls @ 100 mls/hr IV Q24H [facility]; Protocol Stop: 11/13/18 17:01 Multivitamins (Hexavitamin) 1 tab PO DAILY [facility] Last Admin: 11/08/18 09:21 Dose: 1 tab Pantoprazole Sodium (Protonix Ec Tab) 40 mg PO DAILY [facility] Last Admin: 11/08/18 09:21 Dose: 40 mg Verapamil HCl (Calan Sr Tab) 180 mg PO DAILY [facility] Last Admin: 11/08/18 09:21 Dose: 180 mg - Labs Labs: 11/08/18 05:30 11/08/18 05:30 PT 16.7 SECONDS (9.7-12.2) H 11/05/18 09:04 INR 1.5 11/05/18 09:04 APTT 35 SECONDS (21-34) H 11/05/18 09:04
--- NOTE | 2018-11-08 17:59 | RAD ---
HISTORY: temps and effusions COMPARISON: Chest x-ray performed 11/06/18 TECHNIQUE: Chest PA and lateral FINDINGS: LUNGS: Moderate left and small right pleural effusions and associated consolidations. PLEURA: No significant pleural effusion identified. No definite pneumothorax . CARDIOVASCULAR: Left-sided pacemaker. Cardiomegaly. OSSEOUS STRUCTURES: No acute osseous abnormality identified. VISUALIZED UPPER ABDOMEN: Unremarkable. OTHER FINDINGS: Midline surgical michela, partially imaged. IMPRESSION: Moderate left and small right pleural effusions and associated consolidations. Cardiomegaly.
[2018-11-08] MEDS: Meropenem 500 MG in Sodium Chloride 0.9% 100 ML IVPB SCH (18:00)
[2018-11-08 20:59] LABS: PLASMINOGEN ACTIVITY 71 % (65-176)
--- NOTE | 2018-11-08 23:33 | CP.PCM.PN ---
Subjective - Date & Time of Evaluation Date of Evaluation: 11/08/18 Time of Evaluation: 16:20 - Subjective Subjective: Patient seen and examined denies chest pain and dyspnea Physical examination - Constitutional Appears: Well, Non-toxic, No Acute Distress - Head Exam Head Exam: ATRAUMATIC, NORMAL INSPECTION - Eye Exam Eye Exam: EOMI - ENT Exam ENT Exam: Mucous Membranes Moist - Neck Exam Neck Exam: Full ROM - Respiratory Exam Respiratory Exam: Clear to Ausculation Bilateral, Rales, NORMAL BREATHING PATTERN. absent: Wheezes - Cardiovascular Exam Cardiovascular Exam: Irregular Rhythm, +S1, +S2 - GI/Abdominal Exam GI & Abdominal Exam: Normal Bowel Sounds - Extremities Exam Extremities Exam: Normal Inspection - Back Exam Back Exam: NORMAL INSPECTION - Neurological Exam Neurological Exam: Alert, Awake, Oriented x3 - Skin Skin Exam: Normal Color Assessment and Plan - Assessment and Plan (Free Text) Assessment: 62 F with complex hx A Fib GI bleeding Pericardial effusion Pleural effusion ? Cirrhosis on CT scan ? Bleeding disorder Abnormal viral titres Most likley viral etiology Will start ASA 81 daily Objective - Vital Signs/Intake and Output Vital Signs (last 24 hours): Temp Pulse Resp BP Pulse Ox 98.5 F 82 18 102/59 L 95 11/08/18 21:52 11/08/18 15:00 11/08/18 15:00 11/08/18 15:00 11/08/18 15:00 - Medications Medications: Current Medications Acetaminophen (Tylenol 325mg Tab) 650 mg PO Q12 [facility] Last Admin: 11/08/18 21:52 Dose: Not Given Aspirin (Aspirin Chewable) 81 mg PO DAILY [facility] Last Admin: 11/08/18 17:30 Dose: 81 mg Meropenem 500 mg/ Sodium (Chloride) 100 mls @ 100 mls/hr IVPB Q8H [facility]; Protocol Last Admin: 11/08/18 18:00 Dose: 100 mls/hr Daptomycin 400 mg/ Sodium (Chloride) 100 mls @ 100 mls/hr IV Q24H [facility]; Protocol Stop: 11/13/18 18:01 Last Admin: 11/08/18 20:21 Dose: 100 mls/hr Multivitamins (Hexavitamin) 1 tab PO DAILY [facility] Last Admin: 11/08/18 09:21 Dose: 1 tab Pantoprazole Sodium (Protonix Ec Tab) 40 mg PO DAILY [facility] Last Admin: 11/08/18 09:21 Dose: 40 mg Verapamil HCl (Calan Sr Tab) 180 mg PO DAILY [facility] Last Admin: 11/08/18 09:21 Dose: 180 mg - Labs Labs: 11/08/18 05:30 11/08/18 05:30 PT 16.7 SECONDS (9.7-12.2) H 11/05/18 09:04 INR 1.5 11/05/18 09:04 APTT 35 SECONDS (21-34) H 11/05/18 09:04
[2018-11-09] MEDS: Meropenem 500 MG in Sodium Chloride 0.9% 100 ML IVPB SCH ×3 (01:00→16:16)
[2018-11-09] MEDS: Verapamil 180 mg ER Tab PO SCH (09:04)
[2018-11-09] MEDS: Multiple Vitamins Tab PO SCH (09:05)
[2018-11-09] MEDS: Pantoprazole 40 mg EC Tab PO SCH (09:06)
--- NOTE | 2018-11-09 10:38 | CP.PCM.PN ---
Subjective - Date & Time of Evaluation Date of Evaluation: 11/09/18 Time of Evaluation: 10:36 - Subjective Subjective: Patient was transferred to the medical floor yesterday. Currently patient is feeling well. No chest pain no shortness of breath noted, minimal cough noted She is eating well otherwise. the blood pressure stable Chest bilateral good air entry, expiratory wheezing in the lower left lung noted The heart rate normal at this time Irregular heart sounds noted and nontender abdomen no pedal edema Right arm PICC line noted. Patient is a 62-year-old female admitted with the pericardial effusion pleural effusion status post thoracentesis. Most likely inflammatory process. Currently on antibiotic. We will follow the patient Objective - Vital Signs/Intake and Output Vital Signs (last 24 hours): Temp Pulse Resp BP Pulse Ox 98.2 F 94 H 20 111/64 95 11/09/18 08:03 11/09/18 08:03 11/09/18 08:03 11/09/18 08:03 11/09/18 08:03 - Medications Medications: Current Medications Acetaminophen (Tylenol 325mg Tab) 650 mg PO Q12 [facility] Last Admin: 11/09/18 09:05 Dose: Not Given Aspirin (Aspirin Chewable) 81 mg PO DAILY [facility] Last Admin: 11/09/18 09:06 Dose: 81 mg Meropenem 500 mg/ Sodium (Chloride) 100 mls @ 100 mls/hr IVPB Q8H [facility]; Protocol Last Admin: 11/09/18 08:18 Dose: 100 mls/hr Daptomycin 400 mg/ Sodium (Chloride) 100 mls @ 100 mls/hr IV Q24H [facility]; Protocol Stop: 11/13/18 18:01 Last Admin: 11/08/18 20:21 Dose: 100 mls/hr Multivitamins (Hexavitamin) 1 tab PO DAILY [facility] Last Admin: 11/09/18 09:05 Dose: 1 tab Pantoprazole Sodium (Protonix Ec Tab) 40 mg PO DAILY [facility] Last Admin: 11/09/18 09:06 Dose: 40 mg Verapamil HCl (Calan Sr Tab) 180 mg PO DAILY [facility] Last Admin: 11/09/18 09:04 Dose: 180 mg - Labs Labs: 11/08/18 05:30 11/08/18 05:30 PT 16.7 SECONDS (9.7-12.2) H 11/05/18 09:04 INR 1.5 11/05/18 09:04 APTT 35 SECONDS (21-34) H 11/05/18 09:04
--- NOTE | 2018-11-09 14:32 | CP.PCM.PN ---
Subjective - Date & Time of Evaluation Date of Evaluation: 11/09/18 Time of Evaluation: 09:15 - Subjective Subjective: Patient appear severely debilitated, slowly improving on iv antibx. Objective - Vital Signs/Intake and Output Vital Signs (last 24 hours): Temp Pulse Resp BP Pulse Ox 98.2 F 94 H 20 111/64 95 11/09/18 08:03 11/09/18 09:08 11/09/18 08:03 11/09/18 08:03 11/09/18 08:03 Intake and Output: 11/09/18 11/09/18 11:59 23:59 Intake Total 500 Balance 500 - Medications Medications: Current Medications Acetaminophen (Tylenol 325mg Tab) 650 mg PO Q12 [facility] Last Admin: 11/09/18 09:05 Dose: Not Given Aspirin (Aspirin Chewable) 81 mg PO DAILY [facility] Last Admin: 11/09/18 09:06 Dose: 81 mg Meropenem 500 mg/ Sodium (Chloride) 100 mls @ 100 mls/hr IVPB Q8H [facility]; Protocol Last Admin: 11/09/18 08:18 Dose: 100 mls/hr Daptomycin 400 mg/ Sodium (Chloride) 100 mls @ 100 mls/hr IV Q24H [facility]; Protocol Stop: 11/13/18 18:01 Last Admin: 11/08/18 20:21 Dose: 100 mls/hr Multivitamins (Hexavitamin) 1 tab PO DAILY [facility] Last Admin: 11/09/18 09:05 Dose: 1 tab Pantoprazole Sodium (Protonix Ec Tab) 40 mg PO DAILY [facility] Last Admin: 11/09/18 09:06 Dose: 40 mg Verapamil HCl (Calan Sr Tab) 180 mg PO DAILY [facility] Last Admin: 11/09/18 09:04 Dose: 180 mg - Labs Labs: 11/08/18 05:30 11/08/18 05:30 PT 16.7 SECONDS (9.7-12.2) H 11/05/18 09:04 INR 1.5 11/05/18 09:04 APTT 35 SECONDS (21-34) H 11/05/18 09:04 - Constitutional Appears: Chronically Ill - Head Exam Head Exam: ATRAUMATIC, NORMAL INSPECTION, NORMOCEPHALIC - Eye Exam Eye Exam: Normal appearance - ENT Exam ENT Exam: Normal Exam - Neck Exam Neck Exam: Full ROM - Respiratory Exam Respiratory Exam: Decreased Breath Sounds - Cardiovascular Exam Cardiovascular Exam: Irregular Rhythm, +S1, +S2 - GI/Abdominal Exam GI & Abdominal Exam: Normal Bowel Sounds - Neurological Exam Neurological Exam: Alert, Awake, CN II-XII Intact, Oriented x3 - Psychiatric Exam Psychiatric exam: Depressed, Flat Affect - Skin Skin Exam: Warm Assessment and Plan (1) Rapid atrial fibrillation Status: Acute (2) Symptomatic anemia Status: Acute (3) Atrial fibrillation Status: Acute (4) Hypertensive cardiovascular disease Status: Acute (5) Wide-complex tachycardia Status: Acute (6) Hypertension Status: Chronic (7) Pericardial effusion Status: Acute (8) Cardiac tamponade Status: Acute (9) Pleural effusion Status: Acute - Assessment and Plan (Free Text) Plan: For TCU when stable for PT
--- NOTE | 2018-11-09 19:58 | CP.PCM.PN ---
Subjective - Date & Time of Evaluation Date of Evaluation: 11/09/18 Time of Evaluation: 19:52 - Subjective Subjective: INFECTIOUS DISEASE PROGRESS NOTES MARK ANTHONY DOLAN MD, FACP 11/09/2018 CHART REVIEWED PT EXAMINED CASE DISCUSSED WITH DR GUERRERO CLINICALLY SPIKING WITHOUT A SOURCE DENIES SHAKING CHILLS, TEETH CHATTERING ISSUES, DIAPHORESIS-MALES ONE THINK OF NON BACTERIAL ISSUES(?). LUNGS DECREASED BREATH SOUNDS COR NOTES ABD SOFT REPEAT LABS PENDING TOMORROW AWAITING BLOOD C/S FOR THURSDAY AND THURSDAY URINALYSIS AND URINE C/C REPEAT CMV ORDERED WELL QUANTIFERON GOLD PLUS. 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 - consider ct of chest abd pelvis if temp do not resolve PLEASE ALLOW FOCUSED ID MANAGEDMENT. MAY USE SHORTLY NON STEROIDAL STRESS TESTING. Objective - Vital Signs/Intake and Output Vital Signs (last 24 hours): Temp Pulse Resp BP Pulse Ox 98.9 F 87 18 109/55 L 96 11/09/18 17:15 11/09/18 18:24 11/09/18 15:00 11/09/18 15:00 11/09/18 15:00 Intake and Output: 11/09/18 11/10/18 18:59 06:59 Intake Total 500 Balance 500 - Medications Medications: Current Medications Acetaminophen (Tylenol 325mg Tab) 650 mg PO Q8H PRN PRN Reason: PAIN OR FEVER Aspirin (Aspirin Chewable) 81 mg PO DAILY [facility] Last Admin: 11/09/18 09:06 Dose: 81 mg Meropenem 500 mg/ Sodium (Chloride) 100 mls @ 100 mls/hr IVPB Q8H [facility]; Protocol Last Admin: 11/09/18 16:16 Dose: 100 mls/hr Daptomycin 400 mg/ Sodium (Chloride) 100 mls @ 100 mls/hr IV Q24H [facility]; Protocol Stop: 11/13/18 18:01 Last Admin: 11/09/18 17:31 Dose: 100 mls/hr Multivitamins (Hexavitamin) 1 tab PO DAILY [facility] Last Admin: 11/09/18 09:05 Dose: 1 tab Pantoprazole Sodium (Protonix Ec Tab) 40 mg PO DAILY [facility] Last Admin: 11/09/18 09:06 Dose: 40 mg Verapamil HCl (Calan Sr Tab) 180 mg PO DAILY [facility] Last Admin: 11/09/18 09:04 Dose: 180 mg - Labs Labs: 11/08/18 05:30 11/08/18 05:30 PT 16.7 SECONDS (9.7-12.2) H 11/05/18 09:04 INR 1.5 11/05/18 09:04 APTT 35 SECONDS (21-34) H 11/05/18 09:04
--- NOTE | 2018-11-10 00:10 | CP.PCM.PN ---
Subjective - Date & Time of Evaluation Date of Evaluation: 11/09/18 Time of Evaluation: 19:40 - Subjective Subjective: Patient seen and examined denies chest pain and dyspnea Physical examination - Constitutional Appears: Well, Non-toxic, No Acute Distress - Head Exam Head Exam: ATRAUMATIC, NORMAL INSPECTION - Eye Exam Eye Exam: EOMI - ENT Exam ENT Exam: Mucous Membranes Moist - Neck Exam Neck Exam: Full ROM - Respiratory Exam Respiratory Exam: Clear to Ausculation Bilateral, Rales, NORMAL BREATHING PATTERN. absent: Wheezes - Cardiovascular Exam Cardiovascular Exam: Irregular Rhythm, +S1, +S2 - GI/Abdominal Exam GI & Abdominal Exam: Normal Bowel Sounds - Extremities Exam Extremities Exam: Normal Inspection - Back Exam Back Exam: NORMAL INSPECTION - Neurological Exam Neurological Exam: Alert, Awake, Oriented x3 - Skin Skin Exam: Normal Color Assessment and Plan - Assessment and Plan (Free Text) Assessment: 62 F with complex hx A Fib GI bleeding Pericardial effusion Pleural effusion ? Cirrhosis on CT scan ? Bleeding disorder Abnormal viral titres Most likley viral etiology Will start ASA 81 daily Objective - Vital Signs/Intake and Output Vital Signs (last 24 hours): Temp Pulse Resp BP Pulse Ox 98.9 F 84 18 109/55 L 96 11/09/18 17:15 11/09/18 20:48 11/09/18 15:00 11/09/18 15:00 11/09/18 15:00 Intake and Output: 11/09/18 11/10/18 18:59 06:59 Intake Total 500 500 Balance 500 500 - Medications Medications: Current Medications Acetaminophen (Tylenol 325mg Tab) 650 mg PO Q8H PRN PRN Reason: PAIN OR FEVER Aspirin (Aspirin Chewable) 81 mg PO DAILY [facility] Last Admin: 11/09/18 09:06 Dose: 81 mg Meropenem 500 mg/ Sodium (Chloride) 100 mls @ 100 mls/hr IVPB Q8H [facility]; Protocol Last Admin: 11/09/18 16:16 Dose: 100 mls/hr Daptomycin 400 mg/ Sodium (Chloride) 100 mls @ 100 mls/hr IV Q24H [facility]; Protocol Stop: 11/13/18 18:01 Last Admin: 11/09/18 17:31 Dose: 100 mls/hr Multivitamins (Hexavitamin) 1 tab PO DAILY [facility] Last Admin: 11/09/18 09:05 Dose: 1 tab Pantoprazole Sodium (Protonix Ec Tab) 40 mg PO DAILY [facility] Last Admin: 11/09/18 09:06 Dose: 40 mg Verapamil HCl (Calan Sr Tab) 180 mg PO DAILY [facility] Last Admin: 11/09/18 09:04 Dose: 180 mg - Labs Labs: 11/08/18 05:30 11/08/18 05:30 PT 16.7 SECONDS (9.7-12.2) H 11/05/18 09:04 INR 1.5 11/05/18 09:04 APTT 35 SECONDS (21-34) H 11/05/18 09:04
[2018-11-10] MEDS: Meropenem 500 MG in Sodium Chloride 0.9% 100 ML IVPB SCH ×3 (00:30→16:54)
--- NOTE | 2018-11-10 02:07 | CP.PCM.PN ---
Subjective - Date & Time of Evaluation Date of Evaluation: 11/08/18 Time of Evaluation: 20:00 - Subjective Subjective: Feeling better. started on aspirin Objective - Vital Signs/Intake and Output Vital Signs (last 24 hours): Temp Pulse Resp BP Pulse Ox 99.2 F 87 20 119/70 98 11/09/18 23:00 11/09/18 23:40 11/09/18 23:00 11/09/18 23:00 11/09/18 23:00 Intake and Output: 11/09/18 11/10/18 18:59 06:59 Intake Total 500 500 Balance 500 500 - Medications Medications: Current Medications Acetaminophen (Tylenol 325mg Tab) 650 mg PO Q8H PRN PRN Reason: PAIN OR FEVER Aspirin (Aspirin Chewable) 81 mg PO DAILY [facility] Last Admin: 11/09/18 09:06 Dose: 81 mg Meropenem 500 mg/ Sodium (Chloride) 100 mls @ 100 mls/hr IVPB Q8H [facility]; Protocol Last Admin: 11/10/18 00:30 Dose: 100 mls/hr Daptomycin 400 mg/ Sodium (Chloride) 100 mls @ 100 mls/hr IV Q24H [facility]; Protocol Stop: 11/13/18 18:01 Last Admin: 11/09/18 17:31 Dose: 100 mls/hr Multivitamins (Hexavitamin) 1 tab PO DAILY [facility] Last Admin: 11/09/18 09:05 Dose: 1 tab Pantoprazole Sodium (Protonix Ec Tab) 40 mg PO DAILY [facility] Last Admin: 11/09/18 09:06 Dose: 40 mg Verapamil HCl (Calan Sr Tab) 180 mg PO DAILY [facility] Last Admin: 11/09/18 09:04 Dose: 180 mg - Labs Labs: 11/08/18 05:30 11/08/18 05:30 PT 16.7 SECONDS (9.7-12.2) H 11/05/18 09:04 INR 1.5 11/05/18 09:04 APTT 35 SECONDS (21-34) H 11/05/18 09:04 - Head Exam Head Exam: ATRAUMATIC - Eye Exam Eye Exam: Normal appearance - ENT Exam ENT Exam: Mucous Membranes Dry - Respiratory Exam Respiratory Exam: NORMAL BREATHING PATTERN - Cardiovascular Exam Cardiovascular Exam: +S1, +S2 - GI/Abdominal Exam GI & Abdominal Exam: Normal Bowel Sounds Assessment and Plan (1) Coagulopathy Assessment & Plan: imaging suggestive of cirrhosis low factor levels noted; suspect related to liver disease repeat as outpatient Status: Acute (2) Anemia Assessment & Plan: iron deficiency s/p supplementation s/p EGD/colonoscopy Status: Acute (3) Pericardial effusion Assessment & Plan: negative cytology infectious work up in progress Status: Acute (4) Platelet dysfunction Assessment & Plan: resolved Status: Acute
--- NOTE | 2018-11-10 02:13 | CP.PCM.PN ---
Subjective - Date & Time of Evaluation Date of Evaluation: 11/09/18 Time of Evaluation: 16:00 - Subjective Subjective: Had fever today. Objective - Vital Signs/Intake and Output Vital Signs (last 24 hours): Temp Pulse Resp BP Pulse Ox 99.2 F 87 20 119/70 98 11/09/18 23:00 11/09/18 23:40 11/09/18 23:00 11/09/18 23:00 11/09/18 23:00 Intake and Output: 11/09/18 11/10/18 18:59 06:59 Intake Total 500 500 Balance 500 500 - Medications Medications: Current Medications Acetaminophen (Tylenol 325mg Tab) 650 mg PO Q8H PRN PRN Reason: PAIN OR FEVER Aspirin (Aspirin Chewable) 81 mg PO DAILY [facility] Last Admin: 11/09/18 09:06 Dose: 81 mg Meropenem 500 mg/ Sodium (Chloride) 100 mls @ 100 mls/hr IVPB Q8H [facility]; Protocol Last Admin: 11/10/18 00:30 Dose: 100 mls/hr Daptomycin 400 mg/ Sodium (Chloride) 100 mls @ 100 mls/hr IV Q24H [facility]; Protocol Stop: 11/13/18 18:01 Last Admin: 11/09/18 17:31 Dose: 100 mls/hr Multivitamins (Hexavitamin) 1 tab PO DAILY [facility] Last Admin: 11/09/18 09:05 Dose: 1 tab Pantoprazole Sodium (Protonix Ec Tab) 40 mg PO DAILY [facility] Last Admin: 11/09/18 09:06 Dose: 40 mg Verapamil HCl (Calan Sr Tab) 180 mg PO DAILY [facility] Last Admin: 11/09/18 09:04 Dose: 180 mg - Labs Labs: 11/08/18 05:30 11/08/18 05:30 PT 16.7 SECONDS (9.7-12.2) H 11/05/18 09:04 INR 1.5 11/05/18 09:04 APTT 35 SECONDS (21-34) H 11/05/18 09:04 - Head Exam Head Exam: ATRAUMATIC - Eye Exam Eye Exam: Normal appearance - ENT Exam ENT Exam: Mucous Membranes Dry - Respiratory Exam Respiratory Exam: NORMAL BREATHING PATTERN - Cardiovascular Exam Cardiovascular Exam: +S1, +S2 - GI/Abdominal Exam GI & Abdominal Exam: Normal Bowel Sounds Assessment and Plan (1) Coagulopathy Assessment & Plan: liver cirrhosis by imaging Status: Acute (2) Anemia Assessment & Plan: iron deficiency s/p supplementation s/p EGD/colonoscopy Status: Acute (3) Pericardial effusion Assessment & Plan: cytology negative infectious w/u in progress Status: Acute (4) Platelet dysfunction Assessment & Plan: resolved Status: Acute
[2018-11-10 04:54] LABS: CEA PLEURAL FLUID <0.5 ng/mL (<10.0)
[2018-11-10 06:33] LABS: GLUCOSE PLEURAL FLUID 115 mg/dL; LDH PLEURAL FLUID 234 U/L; TOTAL PROTEIN PLEURAL FLUID 3.6 g/dL
[2018-11-10 07:56] LABS: BASO % 0.6 % (0.0-2.0); EOS # 0.1 K/uL (0.0-0.7); EOS % 1.7 % (0.0-4.0); HEMOGLOBIN 9.6 g/dL (11.0-16.0); LYMPH # 1.3 K/uL (1.0-4.3); LYMPH % 18.7 % (20.0-40.0); MEAN CELL VOLUME 85.3 fL (81.0-99.0); MEAN CORPUSCULAR HGB CONC 32.8 g/dL (33.0-37.0); MEAN PLATELET VOLUME 8.1 fL (7.2-11.7); MONO # 0.9 K/uL (0.0-0.8); MONO % 12.4 % (0.0-10.0); NEUT # 4.8 K/uL (1.8-7.0); NEUT % 66.6 % (50.0-75.0); NRBC % 0.1 % (0.0-2.0); RBC 3.43 Mil/uL (3.80-5.20); RED CELL DISTRIBUTION WIDTH 23.8 % (11.5-14.5); WHITE BLOOD COUNT 7.2 K/uL (4.8-10.8)
[2018-11-10 08:20] LABS: ALB/GLOB RATIO 0.9 (1.0-2.1); ALBUMIN 2.6 g/dL (3.5-5.0); ALT/SGPT 26 U/L (9-52); AST/SGOT 34 U/L (14-36); BLOOD UREA NITROGEN 8 mg/dL (7-17); CALCIUM 8.1 mg/dl (8.6-10.4); GFR NON-AFRICAN AMERICAN > 60
[2018-11-10] MEDS: Pantoprazole 40 mg EC Tab PO SCH (10:16)
[2018-11-10] MEDS: Multiple Vitamins Tab PO SCH (10:16)
[2018-11-10] MEDS: Verapamil 180 mg ER Tab PO SCH (10:41)
[2018-11-10] MEDS ORDERED: Iohexol 240 (50 ml) PO ONE (12:45)
--- NOTE | 2018-11-10 14:54 | US ---
Date of service: 11/10/2018 HISTORY: GB stones COMPARISON: None. TECHNIQUE: Sonographic evaluation of the right upper quadrant of the abdomen. FINDINGS: LIVER: Measures 7 cm in length. The increased echogenicity of the liver parenchyma. No mass. No intrahepatic bile duct dilatation. GALLBLADDER: No gallstones. Is minimal gallbladder wall thickening and trace pericholecystic fluid in this patient with right pleural effusion and cirrhosis No positive Duke sign. COMMON BILE DUCT: Measures 5.5 mm. No stones. No dilatation. PANCREAS: Unremarkable as visualized. No mass. No ductal dilatation. RIGHT KIDNEY: Measures 11.3 x 4.7 x 4.8 cm in length. Normal echogenicity. No calculus, mass, or hydronephrosis. AORTA: No aneurysmal dilatation. IVC: Unremarkable. OTHER FINDINGS: None . IMPRESSION: No gallstones seen. Gallbladder wall thickening the trace pericholecystic fluid-nonspecific. Positive sonographic Duke sign reported.. The gallbladder wall findings may relate to patient's cirrhosis. Any hypoalbuminemic states are not known. Clinical correlation recommended. No ducts suggested. Findings compatible with fatty liver and/or hepatocellular disease. History cirrhosis noted. No gross liver masses seen.
[2018-11-10] MEDS ORDERED: Iodixanol 320 MG/ML 100 ML BOTTLE IV ONE (17:23)
[2018-11-10 17:25] LABS: DRVVT CONFIRM Negative (Negative)
--- NOTE | 2018-11-10 18:36 | CP.PCM.PN ---
Subjective - Date & Time of Evaluation Date of Evaluation: 11/10/18 Time of Evaluation: 18:26 - Subjective Subjective: INFECTIOUS DISEASE PROGRESS NOTES MARK ANTHONY DOLAN MD, FACP 11/10/2018 CHART REVIEWED PT EXAMINED CASE DISCUSSED PERSONALLY WITH DR GUERRERO AT [facility] PT WITH SLOW PREADMISSION WASTING, SEE MUSCLE WASTING DESCRIBED AFEBRILE SINCE YESTERDAY-ON CUBICIN AND MERREM SIGNIFICANT LABS INCLUDE NORMAL ALPHA FETO PROTEIN 3.6 WITH CIRRHOSIS(?), CRP+67.5 ESR=70 RF=NEG IZABELLA=NEG ANTI IAN =NEG ADENOSINE DEAMINASE=9.2-VERY LOW FOR TB, CA, PE,LYMPHOMA,-LIKE 92.1,23.3,64.3 [facility]EF[facility] PATHOLOGY CAN SEND PERICARDIUM FOR TB PCR TO CHECK CONCEPCION AND CERULOPLASMIN. REPEAT CT DONE TODAY. Objective - Vital Signs/Intake and Output Vital Signs (last 24 hours): Temp Pulse Resp BP Pulse Ox 99.8 F H 88 18 112/57 L 96 11/10/18 15:00 11/10/18 15:00 11/10/18 15:00 11/10/18 15:00 11/10/18 15:00 Intake and Output: 11/10/18 11/10/18 06:59 18:59 Intake Total 840 Balance 840 - Medications Medications: Current Medications Acetaminophen (Tylenol 325mg Tab) 650 mg PO Q8H PRN PRN Reason: PAIN OR FEVER Aspirin (Aspirin Chewable) 81 mg PO DAILY [facility] Last Admin: 11/10/18 10:16 Dose: 81 mg Meropenem 500 mg/ Sodium (Chloride) 100 mls @ 100 mls/hr IVPB Q8H [facility]; Protocol Last Admin: 11/10/18 16:54 Dose: 100 mls/hr Daptomycin 400 mg/ Sodium (Chloride) 100 mls @ 100 mls/hr IV Q24H [facility]; Protocol Stop: 11/13/18 18:01 Last Admin: 11/10/18 18:16 Dose: 100 mls/hr Multivitamins (Hexavitamin) 1 tab PO DAILY [facility] Last Admin: 11/10/18 10:16 Dose: 1 tab Pantoprazole Sodium (Protonix Ec Tab) 40 mg PO DAILY [facility] Last Admin: 11/10/18 10:16 Dose: 40 mg Verapamil HCl (Calan Sr Tab) 180 mg PO DAILY [facility] Last Admin: 11/10/18 10:41 Dose: 180 mg - Labs Labs: 11/10/18 07:35 11/10/18 07:35 PT 16.7 SECONDS (9.7-12.2) H 11/05/18 09:04 INR 1.5 11/05/18 09:04 APTT 35 SECONDS (21-34) H 11/05/18 09:04
--- NOTE | 2018-11-10 18:38 | CT ---
PROCEDURE: CT Abdomen and Pelvis with oral and IV contrast. HISTORY: mesenteritis COMPARISON: CT abdomen and pelvis without contrast performed 10/25/18 TECHNIQUE: Contiguous axial images of the abdomen and pelvis. Oral and IV contrast was administered. Coronal and Sagittal reformats generated and reviewed. Contrast dose: 100 mL Visipaque 320 IV Radiation dose: Total exam DLP = 768.24 mGy-cm. This CT exam was performed using one or more of the following dose reduction techniques: Automated exposure control, adjustment of the mA and/or kV according to patient size, and/or use of iterative reconstruction technique. FINDINGS: LOWER THORAX: Moderate bilateral pleural effusions and associated consolidations. Partially imaged moderate pericardial effusion with suspected peripheral enhancement. Partially imaged pacer leads. LIVER: Nodular hepatic contour. GALLBLADDER AND BILE DUCTS: Gallbladder wall thickening/pericholecystic edema. PANCREAS: Unremarkable. SPLEEN: Unremarkable. ADRENALS: Unremarkable. KIDNEYS AND URETERS: The kidneys enhance symmetrically. No hydronephrosis or obstructing renal calculus. BLADDER: Urinary bladder appears thick walled out of proportion to under distension. REPRODUCTIVE: Uterus is absent, presumably due to hysterectomy. APPENDIX: The appendix appears within normal limits of caliber. No secondary signs of acute appendicitis. BOWEL: The stomach is nondistended. The bowel loops appear within normal limits of caliber without evidence of intestinal obstruction. PERITONEUM: No significant free fluid. No definite free air. LYMPH NODES: Prominent mesenteric lymph nodes measuring approximately 11 mm in short axis. VASCULATURE: No aortic aneurysm. Scattered atherosclerotic calcifications. BONES: Osseous demineralization. Degenerative changes. L2, L4, and L5 vertebral body compression fracture deformities re-identified. OTHER FINDINGS: None. IMPRESSION: Partially imaged moderate pericardial effusion with suspected peripheral enhancement. Moderate bilateral pleural effusions and associated consolidations. Nodular hepatic contour; correlate for cirrhosis. Gallbladder wall thickening/pericholecystic edema. Prominent mesenteric lymph nodes measuring approximately 11 mm in short axis. Urinary bladder appears thick walled out of proportion to under distension. Recommend correlation with urinalysis. Additional findings as above.
[2018-11-10] MEDS ORDERED: Naproxen 550 mg Tab PO STA (20:16)
--- NOTE | 2018-11-10 21:27 | CP.PCM.PN ---
Subjective - Date & Time of Evaluation Date of Evaluation: 11/10/18 Time of Evaluation: 18:00 - Subjective Subjective: No complaints. s/p repeat CT discussed imaging with IR; mesenteric LN too small for biopsy will order CA 19-9 although no pancreatic mass appreciated on imaging infectious w/u in progress if cont. to spike fever and unknown origin; will plan for bone marrow evaluation Objective - Vital Signs/Intake and Output Vital Signs (last 24 hours): Temp Pulse Resp BP Pulse Ox 101 F H 87 20 109/58 L 96 11/10/18 20:09 11/10/18 20:09 11/10/18 20:09 11/10/18 20:09 11/10/18 20:09 - Medications Medications: Current Medications Acetaminophen (Tylenol 325mg Tab) 650 mg PO Q8H PRN PRN Reason: PAIN OR FEVER Aspirin (Aspirin Chewable) 81 mg PO DAILY [facility] Last Admin: 11/10/18 10:16 Dose: 81 mg Meropenem 500 mg/ Sodium (Chloride) 100 mls @ 100 mls/hr IVPB Q8H [facility]; Protocol Last Admin: 11/10/18 16:54 Dose: 100 mls/hr Daptomycin 400 mg/ Sodium (Chloride) 100 mls @ 100 mls/hr IV Q24H [facility]; Protocol Stop: 11/13/18 18:01 Last Admin: 11/10/18 18:16 Dose: 100 mls/hr Multivitamins (Hexavitamin) 1 tab PO DAILY [facility] Last Admin: 11/10/18 10:16 Dose: 1 tab Pantoprazole Sodium (Protonix Ec Tab) 40 mg PO DAILY [facility] Last Admin: 11/10/18 10:16 Dose: 40 mg Verapamil HCl (Calan Sr Tab) 180 mg PO DAILY [facility] Last Admin: 11/10/18 10:41 Dose: 180 mg - Labs Labs: 11/10/18 07:35 11/10/18 07:35 PT 16.7 SECONDS (9.7-12.2) H 11/05/18 09:04 INR 1.5 11/05/18 09:04 APTT 35 SECONDS (21-34) H 11/05/18 09:04 - Head Exam Head Exam: ATRAUMATIC - Eye Exam Eye Exam: Normal appearance - ENT Exam ENT Exam: Mucous Membranes Dry - Respiratory Exam Respiratory Exam: Decreased Breath Sounds - Cardiovascular Exam Cardiovascular Exam: +S1, +S2 - GI/Abdominal Exam GI & Abdominal Exam: Normal Bowel Sounds Assessment and Plan (1) Coagulopathy Status: Acute (2) Anemia Status: Acute (3) Pericardial effusion Status: Acute (4) Platelet dysfunction Status: Acute
[2018-11-11] MEDS: Meropenem 500 MG in Sodium Chloride 0.9% 100 ML IVPB SCH ×3 (00:20→17:29)
--- NOTE | 2018-11-11 00:47 | CP.PCM.PN ---
Subjective - Date & Time of Evaluation Date of Evaluation: 11/10/18 Time of Evaluation: 18:50 - Subjective Subjective: Patient seen and evaluated Denies chest pain and dyspnea No cardiac events noted Objective - Vital Signs/Intake and Output Vital Signs (last 24 hours): Temp Pulse Resp BP Pulse Ox 98.1 F 87 20 109/58 L 96 11/10/18 22:51 11/10/18 20:09 11/10/18 20:09 11/10/18 20:09 11/10/18 20:09 Intake and Output: 11/10/18 11/11/18 18:59 06:59 Intake Total 500 Balance 500 - Medications Medications: Current Medications Acetaminophen (Tylenol 325mg Tab) 650 mg PO Q8H PRN PRN Reason: PAIN OR FEVER Aspirin (Aspirin Chewable) 81 mg PO DAILY [facility] Last Admin: 11/10/18 10:16 Dose: 81 mg Meropenem 500 mg/ Sodium (Chloride) 100 mls @ 100 mls/hr IVPB Q8H [facility]; Protocol Last Admin: 11/11/18 00:20 Dose: 100 mls/hr Daptomycin 400 mg/ Sodium (Chloride) 100 mls @ 100 mls/hr IV Q24H [facility]; Protocol Stop: 11/13/18 18:01 Last Admin: 11/10/18 18:16 Dose: 100 mls/hr Multivitamins (Hexavitamin) 1 tab PO DAILY [facility] Last Admin: 11/10/18 10:16 Dose: 1 tab Pantoprazole Sodium (Protonix Ec Tab) 40 mg PO DAILY [facility] Last Admin: 11/10/18 10:16 Dose: 40 mg Verapamil HCl (Calan Sr Tab) 180 mg PO DAILY [facility] Last Admin: 11/10/18 10:41 Dose: 180 mg - Labs Labs: 11/10/18 07:35 11/10/18 07:35 PT 16.7 SECONDS (9.7-12.2) H 11/05/18 09:04 INR 1.5 11/05/18 09:04 APTT 35 SECONDS (21-34) H 11/05/18 09:04
[2018-11-11] MEDS: Multiple Vitamins Tab PO SCH (10:22)
[2018-11-11] MEDS: Verapamil 180 mg ER Tab PO SCH (10:22)
[2018-11-11] MEDS: Pantoprazole 40 mg EC Tab PO SCH (10:22)
[2018-11-11] MEDS ORDERED: Iodixanol 320 MG/ML 100 ML BOTTLE IV ONE (11:17)
[2018-11-11 11:55] LABS: BASO # 0.1 K/uL (0.0-0.2); EOS # 0.1 K/uL (0.0-0.7); EOS % 2.3 % (0.0-4.0); HEMOGLOBIN 11.3 g/dL (11.0-16.0); LYMPH # 0.7 K/uL (1.0-4.3); LYMPH % 12.8 % (20.0-40.0); MEAN CELL VOLUME 86.7 fL (81.0-99.0); MEAN CORPUSCULAR HEMOGLOBIN 27.5 pg (27.0-31.0); MEAN CORPUSCULAR HGB CONC 31.7 g/dL (33.0-37.0); MEAN PLATELET VOLUME 8.3 fL (7.2-11.7); MONO # 0.7 K/uL (0.0-0.8); MONO % 12.6 % (0.0-10.0); NEUT # 3.9 K/uL (1.8-7.0); NEUT % 71.3 % (50.0-75.0); NRBC % 0.1 % (0.0-2.0); RBC 4.11 Mil/uL (3.80-5.20); RED CELL DISTRIBUTION WIDTH 23.9 % (11.5-14.5); WHITE BLOOD COUNT 5.5 K/uL (4.8-10.8)
[2018-11-11 12:03] LABS: BLOOD UREA NITROGEN 8 mg/dL (7-17); CALCIUM 8.6 mg/dl (8.6-10.4); GFR NON-AFRICAN AMERICAN > 60
--- NOTE | 2018-11-11 12:14 | CT ---
Date of service: 11/11/2018 PROCEDURE: CT Chest with contrast HISTORY: pleural and pericardial effusion f/u COMPARISON: 11/05/2018 TECHNIQUE: Contiguous axial images were obtained through the chest with intravenous contrast enhancement. Sagittal and coronal reconstructions were performed. IV contrast: 50 mL of Visipaque 320 Radiation dose: Total exam DLP = 529.45 mGy-cm. This CT exam was performed using one or more of the following dose reduction techniques: Automated exposure control, adjustment of the mA and/or kV according to patient size, and/or use of iterative reconstruction technique. FINDINGS: LUNGS: No infiltrate. There is left lower lobe segmental and subsegmental atelectasis likely secondary to pleural effusion. The extent of atelectasis is grossly unchanged. There is right lower lobe subsegmental atelectasis again likely secondary to pleural effusion and unchanged in extent compared to the prior examination. There is no pulmonary mass appreciated. MEDIASTINUM: No evidence of thoracic aortic aneurysm. Mild cardiomegaly. Permanent pacemaker. Small pericardial effusion, minimally decreased in extent compared to the prior examination. Please note that at the time of the prior examination, the pericardial fluid measured approximately 0 Hounsfield units consistent with uncomplicated fluid. It has now increased slightly in attenuation to approximately 16 Hounsfield units. This is not so high as to suggest hemopericardium. Significance uncertain. Main pulmonary artery unremarkable. No vascular congestion. No lymphadenopathy. There is atherosclerotic calcification thoracic aorta. PLEURA: Moderate left and small right pleural effusion. The left pleural effusion has decreased mildly in size compared to the prior examination. The right pleural effusion has increased from prior examination at which time only trace pleural fluid was evident. No pneumothorax. BONES: No acute fracture. There is a rounded sclerotic lesion in the T7 vertebral body likely a benign bone island. UPPER ABDOMEN: Nodular hepatic contour consistent with hepatic cirrhosis. Thickened gallbladder wall common nonspecific. OTHER FINDINGS: None. IMPRESSION: Mildly decreased left pleural effusion and mildly increased right pleural effusion compared to 11/05/2018. Bilateral lower lobe atelectasis, segmental and subsegmental at the left base and subsegmental at the right base. No change in extent. Mild decrease in extent of pericardial effusion though there has been mild increase in attenuation of this fluid, of uncertain significance. Cardiomegaly. Permanent pacemaker. Hepatic cirrhosis. Thickened gallbladder wall common nonspecific.
--- NOTE | 2018-11-11 17:37 | CP.PCM.PN ---
Subjective - Date & Time of Evaluation Date of Evaluation: 11/10/18 Time of Evaluation: 14:35 - Subjective Subjective: No new changes Objective - Vital Signs/Intake and Output Vital Signs (last 24 hours): Temp Pulse Resp BP Pulse Ox 97.6 F 83 18 109/55 L 95 11/11/18 15:00 11/11/18 15:00 11/11/18 15:00 11/11/18 15:00 11/11/18 15:00 Intake and Output: 11/11/18 11/11/18 11:59 23:59 Intake Total 100 Balance 100 - Medications Medications: Current Medications Acetaminophen (Tylenol 325mg Tab) 650 mg PO Q8H PRN PRN Reason: PAIN OR FEVER Aspirin (Aspirin Chewable) 81 mg PO DAILY [facility] Last Admin: 11/11/18 10:21 Dose: 81 mg Meropenem 500 mg/ Sodium (Chloride) 100 mls @ 100 mls/hr IVPB Q8H [facility]; Protocol Last Admin: 11/11/18 17:29 Dose: 100 mls/hr Daptomycin 400 mg/ Sodium (Chloride) 100 mls @ 100 mls/hr IV Q24H [facility]; Protocol Stop: 11/13/18 18:01 Last Admin: 11/10/18 18:16 Dose: 100 mls/hr Multivitamins (Hexavitamin) 1 tab PO DAILY [facility] Last Admin: 11/11/18 10:22 Dose: 1 tab Pantoprazole Sodium (Protonix Ec Tab) 40 mg PO DAILY [facility] Last Admin: 11/11/18 10:22 Dose: 40 mg Verapamil HCl (Calan Sr Tab) 180 mg PO DAILY [facility] Last Admin: 11/11/18 10:22 Dose: 180 mg - Labs Labs: 11/11/18 11:36 11/11/18 11:36 PT 16.7 SECONDS (9.7-12.2) H 11/05/18 09:04 INR 1.5 11/05/18 09:04 APTT 35 SECONDS (21-34) H 11/05/18 09:04 - Constitutional Appears: Chronically Ill - Head Exam Head Exam: ATRAUMATIC, NORMAL INSPECTION, NORMOCEPHALIC - Eye Exam Eye Exam: Normal appearance - ENT Exam ENT Exam: Normal Exam - Respiratory Exam Respiratory Exam: Decreased Breath Sounds - Cardiovascular Exam Cardiovascular Exam: Irregular Rhythm, +S1, +S2 - GI/Abdominal Exam GI & Abdominal Exam: Normal Bowel Sounds - Neurological Exam Neurological Exam: Alert, Awake, CN II-XII Intact, Oriented x3 - Skin Skin Exam: Normal Color Assessment and Plan (1) Rapid atrial fibrillation Status: Acute (2) Symptomatic anemia Status: Acute (3) Atrial fibrillation Status: Acute (4) Hypertensive cardiovascular disease Status: Acute (5) Wide-complex tachycardia Status: Acute (6) Hypertension Status: Chronic (7) Pericardial effusion Status: Acute (8) Cardiac tamponade Status: Acute (9) Pleural effusion Status: Acute
[2018-11-11 18:44] LABS: SQUAMOUS EPITHIAL 1 /hpf (0-5); URINE BILIRUBIN NEGATIVE (NEGATIVE); URINE BLOOD 1+ (NEGATIVE); URINE CLARITY Clear (Clear); URINE COLOR Yellow (YELLOW); URINE GLUCOSE (UA) NORMAL (Normal); URINE LEUKOCYTE ESTERASE NEG Leu/uL (Negative); URINE PROTEIN NEGATIVE (NEGATIVE); URINE UROBILINOGEN NORMAL mg/dL (0.2-1.0)
--- NOTE | 2018-11-11 21:39 | CP.PCM.PN ---
Subjective - Date & Time of Evaluation Date of Evaluation: 11/11/18 Time of Evaluation: 21:42 - Subjective Subjective: Pericardial and pleural effusion persistent. The diagnosis after innumerable diagnostic studies is still cryptic, after consultation with pulmonary, cardiology, ID and hematology specialists. We agree that the patient will benefit to be transferred to a [facility] for further Dx and Rx. Objective - Vital Signs/Intake and Output Vital Signs (last 24 hours): Temp Pulse Resp BP Pulse Ox 97.6 F 83 18 109/55 L 95 11/11/18 15:00 11/11/18 15:00 11/11/18 15:00 11/11/18 15:00 11/11/18 15:00 Intake and Output: 11/11/18 11/11/18 11:59 23:59 Intake Total 100 Balance 100 - Medications Medications: Current Medications Acetaminophen (Tylenol 325mg Tab) 650 mg PO Q8H PRN PRN Reason: PAIN OR FEVER Aspirin (Aspirin Chewable) 81 mg PO DAILY [facility] Last Admin: 11/11/18 10:21 Dose: 81 mg Meropenem 500 mg/ Sodium (Chloride) 100 mls @ 100 mls/hr IVPB Q8H [facility]; Protocol Last Admin: 11/11/18 17:29 Dose: 100 mls/hr Daptomycin 400 mg/ Sodium (Chloride) 100 mls @ 100 mls/hr IV Q24H [facility]; Protocol Stop: 11/13/18 18:01 Last Admin: 11/11/18 18:50 Dose: 100 mls/hr Multivitamins (Hexavitamin) 1 tab PO DAILY [facility] Last Admin: 11/11/18 10:22 Dose: 1 tab Pantoprazole Sodium (Protonix Ec Tab) 40 mg PO DAILY [facility] Last Admin: 11/11/18 10:22 Dose: 40 mg Verapamil HCl (Calan Sr Tab) 180 mg PO DAILY [facility] Last Admin: 11/11/18 10:22 Dose: 180 mg - Labs Labs: 11/11/18 11:36 11/11/18 11:36 PT 16.7 SECONDS (9.7-12.2) H 11/05/18 09:04 INR 1.5 11/05/18 09:04 APTT 35 SECONDS (21-34) H 11/05/18 09:04 - Constitutional Appears: Chronically Ill - Head Exam Head Exam: ATRAUMATIC, NORMAL INSPECTION, NORMOCEPHALIC - Eye Exam Eye Exam: Normal appearance - ENT Exam ENT Exam: Mucous Membranes Moist - Neck Exam Neck Exam: Full ROM - Respiratory Exam Respiratory Exam: Decreased Breath Sounds - Cardiovascular Exam Cardiovascular Exam: Irregular Rhythm, +S1, +S2 - GI/Abdominal Exam GI & Abdominal Exam: Normal Bowel Sounds - Extremities Exam Extremities Exam: Full ROM - Neurological Exam Neurological Exam: Alert, Awake, CN II-XII Intact, Oriented x3 - Psychiatric Exam Psychiatric exam: Depressed, Flat Affect - Skin Skin Exam: Normal Color Assessment and Plan (1) Rapid atrial fibrillation Status: Acute (2) Symptomatic anemia Status: Acute (3) Atrial fibrillation Status: Acute (4) Hypertensive cardiovascular disease Status: Acute (5) Wide-complex tachycardia Status: Acute (6) Hypertension Status: Chronic (7) Pericardial effusion Status: Acute (8) Cardiac tamponade Status: Acute (9) Pleural effusion Status: Acute
--- NOTE | 2018-11-11 22:29 | CP.PCM.CON ---
History of Present Illness - History of Present Illness History of Present Illness: Cardiac-Electrophysiology consult Re: atrial fibrillation/effusion Chart reviewed Seen interviewed and examined Known by prior evaluation and pacemaker implantation Ms. Norris was evaluated initially in when she was admitted with a history of tachycardia at a routine examination. She was admitted in the ICU rate controlled; an echocardiogram and coronary studies were negative; she was placed on anticoagulation and transferred to the floor; she was noted to have LBBB and slow heart rates in the fortees She has no significant symptoms except for an episode of brief disorientation on per her Given the tachy-oc syndrome and paroxysmal atrial fibrillation and an episode of unsteadiness; assuming the latter being hemodynamically mediated options were to continue monitoring minimize rate control medications a loop recorder implant versus a permanent pacemaker implant Anticoagulation in absence of bleeding contraindications was reasonable; there was no imperative for a rhythm control strategy at that point Discussed with patient and her Naun by telephone at length prognosis options procedures risks including but not limited to infection pneumothorax bleeding tamponade; they verbalized understanding and preferred to proceed with a pacemaker She underwent a dual chamber permanent pacemaker in 08.19.2019; the perioperative course was unremarkable; she was seen in the clinic subseqeuntly; the surgical wound healed and she returned to work and anticoagulation was resumed She was then admitted with tachycardia in 11.01.2018 and had a complicated protracted course marked by hemorrhagic pericardial effusion pleural effusion fevers, pericardial window, with hematological/ID consults Past medical history: systemic hypertension, osteoporosis Past surgery: Hysterectomy, Lung mass biopsy of nodule (benign results) Social History: Denies tobacco, alcohol, or drug use. 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 Family History: Father had heart disease and of CVA in his 50's. Mother had a thyroid tumor Allergies: NKDA Medications: Aspirin verapamil Exam No distress Normal venous pressures Lungs: clear No rub Abdomen soft Ext: no edema EKG: sinus LBBB # wide complex irregular tachycardia suggestive of atrial fibrillation Labs: reviewed Echo: reviewed CT : reviewed Ms. Norris developed recurrent hemorrhagic serositis on a background of an otherwise unremarkable past medical history, atrial fibrillation anticoagulation and pacemaker implantation The mechanism of the exudative inflammatory effusions are not clear, there is reasonable absence of malignancy and infection/tuberculosis. Although unusual (9 reported cases worldwide) and the presentation is usually a month post implant, circumstantial evidence raises the possibility of a post-cardiac injury syndrome 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; a lead perforation is unlikely given the time frame of presentation and the presence of pleural effusion @ this point would add NSAIDS, cholchicine and consider a course of prednisone given the duration and morbidity Its reasonable to continue with aspirin and defer anticoagulation until resolution of "inflammation" guided by markers (ESR/CRP) and recession of effusion; of note her CHADS/SCORE is relatively low; she is not a candidate for a Watchman closure device @ this point A rhythm control strategy should be a consideration post resolution with an anti-arrhythmic and or ablation DW Dr. Sultana Past Patient History - Past Medical History & Family History Past Medical History?: Yes - Past Social History Smoking Status: Never Smoked - CARDIAC Hx Cardiac Disorders: Yes Hx Hypertension: Yes - PULMONARY Hx Respiratory Disorders: No - NEUROLOGICAL Hx Neurological Disorder: No - HEENT Hx HEENT Problems: No - RENAL Hx Chronic Kidney Disease: No - ENDOCRINE/METABOLIC Hx Endocrine Disorders: No - HEMATOLOGICAL/ONCOLOGICAL Hx Cancer: No - INTEGUMENTARY Hx Dermatological Problems: No - MUSCULOSKELETAL/RHEUMATOLOGICAL Hx Musculoskeletal Disorders: No Hx Falls: No - GENITOURINARY/GYNECOLOGICAL Hx Genitourinary Disorders: No - PSYCHIATRIC Hx Psychophysiologic Disorder: No Hx Substance Use: No - SURGICAL HISTORY Hx Mastectomy: No - ANESTHESIA Hx Anesthesia: Yes Hx Anesthesia Reactions: No Hx Malignant Hyperthermia: No Meds Allergies/Adverse Reactions: Allergies Allergy/AdvReac Type Severity Reaction Status Date / Time No Known Allergies Allergy Verified 10/23/18 09:05 - Medications Medications: Current Medications Acetaminophen (Tylenol 325mg Tab) 650 mg PO Q8H PRN PRN Reason: PAIN OR FEVER Aspirin (Aspirin Chewable) 81 mg PO DAILY [facility] Last Admin: 11/11/18 10:21 Dose: 81 mg Meropenem 500 mg/ Sodium (Chloride) 100 mls @ 100 mls/hr IVPB Q8H [facility]; Protocol Last Admin: 11/11/18 17:29 Dose: 100 mls/hr Daptomycin 400 mg/ Sodium (Chloride) 100 mls @ 100 mls/hr IV Q24H [facility]; Protocol Stop: 11/13/18 18:01 Last Admin: 11/11/18 18:50 Dose: 100 mls/hr Multivitamins (Hexavitamin) 1 tab PO DAILY [facility] Last Admin: 11/11/18 10:22 Dose: 1 tab Pantoprazole Sodium (Protonix Ec Tab) 40 mg PO DAILY [facility] Last Admin: 11/11/18 10:22 Dose: 40 mg Verapamil HCl (Calan Sr Tab) 180 mg PO DAILY [facility] Last Admin: 11/11/18 10:22 Dose: 180 mg Results - Vital Signs Recent Vital Signs: Last Vital Signs Temp 97.6 F 11/11/18 15:00 Pulse 94 H 11/11/18 15:45 Resp 18 11/11/18 15:00 BP 109/55 L 11/11/18 15:00 Pulse Ox 95 11/11/18 15:00 - Labs Result Diagrams: 11/11/18 11:36 11/11/18 11:36 Labs: Laboratory Results - last 24 hr 11/05/18 11/09/18 11/11/18 11:37 07:54 07:25 WBC RBC Hgb Hct MCV MCH MCHC RDW Plt Count MPV Neut % (Auto) Lymph % (Auto) Cross % (Auto) Eos % (Auto) Baso % (Auto) Neut # (Auto) Lymph # (Auto) Cross # (Auto) Eos # (Auto) Baso # (Auto) Protein C Antigen 29 L Sodium Potassium Chloride Carbon Dioxide Anion Gap BUN Creatinine Est GFR ( Amer) Est GFR (Non-Af Amer) Random Glucose Calcium CA 19-9 Antigen 23.5 Urine Color Urine Clarity Urine pH Ur Specific Tiff Urine Protein Urine Glucose (UA) Urine Ketones Urine Blood Urine Nitrate Urine Bilirubin Urine Urobilinogen Ur Leukocyte Esterase Urine WBC (Auto) Urine RBC (Auto) Ur Squamous Epith Cells TB Test (QFT) Nil 0.48 TB Test Mitogen - Nil 2.87 TB Test Antigen - Nil 0.01 TB Test TB - Nil <0.00 TB Test (QFT) Negative 11/11/18 11/11/18 11/11/18 11:36 11:36 17:47 WBC 5.5 RBC 4.11 Hgb 11.3 Hct 35.6 MCV 86.7 MCH 27.5 MCHC 31.7 L RDW 23.9 H Plt Count 365 MPV 8.3 Neut % (Auto) 71.3 Lymph % (Auto) 12.8 L Cross % (Auto) 12.6 H Eos % (Auto) 2.3 Baso % (Auto) 1.0 Neut # (Auto) 3.9 Lymph # (Auto) 0.7 L Cross # (Auto) 0.7 Eos # (Auto) 0.1 Baso # (Auto) 0.1 Protein C Antigen Sodium 139 Potassium 3.5 L Chloride 102 Carbon Dioxide 30 Anion Gap 11 BUN 8 Creatinine 0.5 L Est GFR ( Amer) > 60 Est GFR (Non-Af Amer) > 60 Random Glucose 200 H D Calcium 8.6 CA 19-9 Antigen Urine Color Yellow Urine Clarity Clear Urine pH 5.0 Ur Specific Tiff 1.014 Urine Protein Negative Urine Glucose (UA) Normal Urine Ketones Negative Urine Blood 1+ H Urine Nitrate Negative Urine Bilirubin Negative Urine Urobilinogen Normal Ur Leukocyte Esterase Neg Urine WBC (Auto) 1 Urine RBC (Auto) 2 Ur Squamous Epith Cells 1 TB Test (QFT) Nil TB Test Mitogen - Nil TB Test Antigen - Nil TB Test TB - Nil TB Test (QFT)
[2018-11-11 22:49] LABS: SOURCE Whole Blood
--- NOTE | 2018-11-12 01:21 | CP.PCM.PN ---
Subjective - Date & Time of Evaluation Date of Evaluation: 11/11/18 Time of Evaluation: 15:00 - Subjective Subjective: Feels weak. s/p repeat CT C/A - cont. pleural and pericardial effusions Objective - Vital Signs/Intake and Output Vital Signs (last 24 hours): Temp Pulse Resp BP Pulse Ox 97.6 F 94 H 18 109/55 L 95 11/11/18 15:00 11/11/18 15:45 11/11/18 15:00 11/11/18 15:00 11/11/18 15:00 - Medications Medications: Current Medications Acetaminophen (Tylenol 325mg Tab) 650 mg PO Q8H PRN PRN Reason: PAIN OR FEVER Aspirin (Aspirin Chewable) 81 mg PO DAILY [facility] Last Admin: 11/11/18 10:21 Dose: 81 mg Meropenem 500 mg/ Sodium (Chloride) 100 mls @ 100 mls/hr IVPB Q8H [facility]; Protocol Last Admin: 11/11/18 17:29 Dose: 100 mls/hr Daptomycin 400 mg/ Sodium (Chloride) 100 mls @ 100 mls/hr IV Q24H [facility]; Protocol Stop: 11/13/18 18:01 Last Admin: 11/11/18 18:50 Dose: 100 mls/hr Multivitamins (Hexavitamin) 1 tab PO DAILY [facility] Last Admin: 11/11/18 10:22 Dose: 1 tab Pantoprazole Sodium (Protonix Ec Tab) 40 mg PO DAILY [facility] Last Admin: 11/11/18 10:22 Dose: 40 mg Verapamil HCl (Calan Sr Tab) 180 mg PO DAILY [facility] Last Admin: 11/11/18 10:22 Dose: 180 mg - Labs Labs: 11/11/18 11:36 11/11/18 11:36 PT 16.7 SECONDS (9.7-12.2) H 11/05/18 09:04 INR 1.5 11/05/18 09:04 APTT 35 SECONDS (21-34) H 11/05/18 09:04 - Head Exam Head Exam: ATRAUMATIC - Eye Exam Eye Exam: Normal appearance - ENT Exam ENT Exam: Mucous Membranes Dry - Respiratory Exam Respiratory Exam: Decreased Breath Sounds - Cardiovascular Exam Cardiovascular Exam: +S1, +S2 - GI/Abdominal Exam GI & Abdominal Exam: Normal Bowel Sounds Assessment and Plan (1) Coagulopathy Assessment & Plan: nutritional, liver disease noted bo deficient factor levels - likely related to liver cirrhosis Status: Acute (2) Anemia Assessment & Plan: improved prior iron deficiency; s/p supplementation s/p EGD/colonoscopy Status: Acute (3) Pericardial effusion Assessment & Plan: cytology negative for malignancy Status: Acute (4) Platelet dysfunction Assessment & Plan: resolved Status: Acute
[2018-11-12] MEDS: Meropenem 500 MG in Sodium Chloride 0.9% 100 ML IVPB SCH ×3 (01:50→17:55)
--- NOTE | 2018-11-12 05:58 | CP.PCM.PN ---
Subjective - Date & Time of Evaluation Date of Evaluation: 11/11/18 Time of Evaluation: 07:20 - Subjective Subjective: Patient seen and examined denies chest pain and dyspnea Plan to transfer to [facility] [place] Physical examination - Constitutional Appears: Well, Non-toxic, No Acute Distress - Head Exam Head Exam: ATRAUMATIC, NORMAL INSPECTION - Eye Exam Eye Exam: EOMI - ENT Exam ENT Exam: Mucous Membranes Moist - Neck Exam Neck Exam: Full ROM - Respiratory Exam Respiratory Exam: Clear to Ausculation Bilateral, Rales, NORMAL BREATHING PATTERN. absent: Wheezes - Cardiovascular Exam Cardiovascular Exam: Irregular Rhythm, +S1, +S2 - GI/Abdominal Exam GI & Abdominal Exam: Normal Bowel Sounds - Extremities Exam Extremities Exam: Normal Inspection - Back Exam Back Exam: NORMAL INSPECTION - Neurological Exam Neurological Exam: Alert, Awake, Oriented x3 - Skin Skin Exam: Normal Color Assessment and Plan - Assessment and Plan (Free Text) Assessment: 62 F with complex hx A Fib GI bleeding Pericardial effusion s/p Window. Rpt limited ECHO Pleural effusion ? Cirrhosis on CT scan ? Bleeding disorder Abnormal viral titres Patient tolerating ASA 81 well Waiting for EP eval Objective - Vital Signs/Intake and Output Vital Signs (last 24 hours): Temp Pulse Resp BP Pulse Ox 99.4 F 85 18 102/59 L 97 11/11/18 23:32 11/12/18 00:55 11/11/18 23:32 11/11/18 23:32 11/11/18 23:32 - Medications Medications: Current Medications Acetaminophen (Tylenol 325mg Tab) 650 mg PO Q8H PRN PRN Reason: PAIN OR FEVER Aspirin (Aspirin Chewable) 81 mg PO DAILY [facility] Last Admin: 11/11/18 10:21 Dose: 81 mg Meropenem 500 mg/ Sodium (Chloride) 100 mls @ 100 mls/hr IVPB Q8H [facility]; Protocol Last Admin: 11/12/18 01:50 Dose: 100 mls/hr Daptomycin 400 mg/ Sodium (Chloride) 100 mls @ 100 mls/hr IV Q24H [facility]; Protocol Stop: 11/13/18 18:01 Last Admin: 11/11/18 18:50 Dose: 100 mls/hr Multivitamins (Hexavitamin) 1 tab PO DAILY [facility] Last Admin: 11/11/18 10:22 Dose: 1 tab Pantoprazole Sodium (Protonix Ec Tab) 40 mg PO DAILY [facility] Last Admin: 11/11/18 10:22 Dose: 40 mg Verapamil HCl (Calan Sr Tab) 180 mg PO DAILY [facility] Last Admin: 11/11/18 10:22 Dose: 180 mg - Labs Labs: 11/11/18 11:36 11/11/18 11:36 PT 16.7 SECONDS (9.7-12.2) H 11/05/18 09:04 INR 1.5 11/05/18 09:04 APTT 35 SECONDS (21-34) H 11/05/18 09:04
--- NOTE | 2018-11-12 06:12 | CP.PCM.PN ---
Subjective - Date & Time of Evaluation Date of Evaluation: 11/12/18 Time of Evaluation: 06:09 - Subjective Subjective: EP Dr. Ravi note appreciated Even though rare there is a remote possibility of Richa's syndrome post PPM Will try a trail of Colchicine and Low dose prednisone for 2 weeks Continue ASA 81 daily and good GI prophylaxis Rpt ECHO to assess pericardial fluid prior to discharge will monitor Prednisone not started after d/w PMD since infectious etiology not completely ruled out Calchicine added to the regimen Physical examination - Constitutional Appears: Well, Non-toxic, No Acute Distress - Head Exam Head Exam: ATRAUMATIC, NORMAL INSPECTION - Eye Exam Eye Exam: EOMI - ENT Exam ENT Exam: Mucous Membranes Moist - Neck Exam Neck Exam: Full ROM - Respiratory Exam Respiratory Exam: Clear to Ausculation Bilateral, Rales, NORMAL BREATHING PATTERN. absent: Wheezes - Cardiovascular Exam Cardiovascular Exam: Irregular Rhythm, +S1, +S2 - GI/Abdominal Exam GI & Abdominal Exam: Normal Bowel Sounds - Extremities Exam Extremities Exam: Normal Inspection - Back Exam Back Exam: NORMAL INSPECTION - Neurological Exam Neurological Exam: Alert, Awake, Oriented x3 - Skin Skin Exam: Normal Color Objective - Vital Signs/Intake and Output Vital Signs (last 24 hours): Temp Pulse Resp BP Pulse Ox 99.4 F 85 18 102/59 L 97 11/11/18 23:32 11/12/18 00:55 11/11/18 23:32 11/11/18 23:32 11/11/18 23:32 - Medications Medications: Current Medications Acetaminophen (Tylenol 325mg Tab) 650 mg PO Q8H PRN PRN Reason: PAIN OR FEVER Aspirin (Aspirin Chewable) 81 mg PO DAILY [facility] Last Admin: 11/11/18 10:21 Dose: 81 mg Colchicine (Colocrys) 0.6 mg PO DAILY [facility] Meropenem 500 mg/ Sodium (Chloride) 100 mls @ 100 mls/hr IVPB Q8H [facility]; Protocol Last Admin: 11/12/18 01:50 Dose: 100 mls/hr Daptomycin 400 mg/ Sodium (Chloride) 100 mls @ 100 mls/hr IV Q24H [facility]; Protocol Stop: 11/13/18 18:01 Last Admin: 11/11/18 18:50 Dose: 100 mls/hr Metoprolol Tartrate (Lopressor) 25 mg PO BID [facility] Multivitamins (Hexavitamin) 1 tab PO DAILY [facility] Last Admin: 11/11/18 10:22 Dose: 1 tab Pantoprazole Sodium (Protonix Ec Tab) 40 mg PO DAILY [facility] Last Admin: 11/11/18 10:22 Dose: 40 mg Prednisone (Prednisone Tab) 5 mg PO DAILY [facility] - Labs Labs: 11/11/18 11:36 11/11/18 11:36 PT 16.7 SECONDS (9.7-12.2) H 11/05/18 09:04 INR 1.5 11/05/18 09:04 APTT 35 SECONDS (21-34) H 11/05/18 09:04
[2018-11-12] MEDS ORDERED: diltiaZEM 180 mg/24 Hours CD Cap PO SCH (10:00)
[2018-11-12] MEDS: Multiple Vitamins Tab PO SCH (11:01)
[2018-11-12] MEDS: Pantoprazole 40 mg EC Tab PO SCH (11:07)
[2018-11-12 11:37] LABS: CERULOPLASMIN 34 mg/dL (18-53)
--- NOTE | 2018-11-12 18:21 | CP.PCM.PN ---
Subjective - Date & Time of Evaluation Date of Evaluation: 11/11/18 Time of Evaluation: 20:00 - Subjective Subjective: infectious disease progress notes orestes potts md, facp 11/11/2018 chart reviewed pt examined case discussed pt in and out of room all day Feels weak. s/p repeat CT C/A - cont. pleural and pericardial effusions Objective - Vital Signs/Intake and Output Vital Signs (last 24 hours): Temp Pulse Resp BP Pulse Ox 97.6 F 94 H 18 109/55 L 95 11/11/18 15:00 11/11/18 15:45 11/11/18 15:00 11/11/18 15:00 11/11/18 15:00 - Medications Medications: Current Medications Acetaminophen (Tylenol 325mg Tab) 650 mg PO Q8H PRN PRN Reason: PAIN OR FEVER Aspirin (Aspirin Chewable) 81 mg PO DAILY [facility] Last Admin: 11/11/18 10:21 Dose: 81 mg Meropenem 500 mg/ Sodium (Chloride) 100 mls @ 100 mls/hr IVPB Q8H [facility]; Protocol Last Admin: 11/11/18 17:29 Dose: 100 mls/hr Daptomycin 400 mg/ Sodium (Chloride) 100 mls @ 100 mls/hr IV Q24H [facility]; Protocol Stop: 11/13/18 18:01 Last Admin: 11/11/18 18:50 Dose: 100 mls/hr Multivitamins (Hexavitamin) 1 tab PO DAILY [facility] Last Admin: 11/11/18 10:22 Dose: 1 tab Pantoprazole Sodium (Protonix Ec Tab) 40 mg PO DAILY [facility] Last Admin: 11/11/18 10:22 Dose: 40 mg Verapamil HCl (Calan Sr Tab) 180 mg PO DAILY [facility] Last Admin: 11/11/18 10:22 Dose: 180 mg - Labs Labs: 11/11/18 11:36 11/11/18 11:36 PT 16.7 SECONDS (9.7-12.2) H 11/05/18 09:04 INR 1.5 11/05/18 09:04 APTT 35 SECONDS (21-34) H 11/05/18 09:04 - Head Exam Head Exam: ATRAUMATIC - Eye Exam Eye Exam: Normal appearance - ENT Exam ENT Exam: Mucous Membranes Dry - Respiratory Exam Respiratory Exam: Decreased Breath Sounds - Cardiovascular Exam Cardiovascular Exam: +S1, +S2 - GI/Abdominal Exam GI & Abdominal Exam: Normal Bowel Sounds Assessment and Plan (1) Coagulopathy Assessment & Plan: nutritional, liver disease noted bo deficient factor levels - likely related to liver cirrhosis Status: Acute (2) Anemia Assessment & Plan: improved prior iron deficiency; s/p supplementation s/p EGD/colonoscopy Status: Acute (3) Pericardial effusion Assessment & Plan: cytology negative for malignancy Status: Acute (4) Platelet dysfunction Assessment & Plan: resolved Status: Acute Objective - Vital Signs/Intake and Output Vital Signs (last 24 hours): Temp Pulse Resp BP Pulse Ox 99.4 F 89 20 116/68 95 11/12/18 15:35 11/12/18 17:12 11/12/18 15:35 11/12/18 17:55 11/12/18 15:35 - Medications Medications: Current Medications Acetaminophen (Tylenol 325mg Tab) 650 mg PO Q8H PRN PRN Reason: PAIN OR FEVER Aspirin (Aspirin Chewable) 81 mg PO DAILY [facility] Last Admin: 11/12/18 11:01 Dose: 81 mg Colchicine (Colocrys) 0.6 mg PO DAILY [facility] Last Admin: 11/12/18 11:19 Dose: 0.6 mg Meropenem 500 mg/ Sodium (Chloride) 100 mls @ 100 mls/hr IVPB Q8H [facility]; Protocol Last Admin: 11/12/18 17:55 Dose: 100 mls/hr Daptomycin 400 mg/ Sodium (Chloride) 100 mls @ 100 mls/hr IV Q24H [facility]; Protocol Stop: 11/13/18 18:01 Last Admin: 11/11/18 18:50 Dose: 100 mls/hr Metoprolol Tartrate (Lopressor) 25 mg PO BID [facility] Last Admin: 11/12/18 17:55 Dose: 25 mg Multivitamins (Hexavitamin) 1 tab PO DAILY [facility] Last Admin: 11/12/18 11:01 Dose: 1 tab - Labs Labs: 11/11/18 11:36 11/11/18 11:36 PT 16.7 SECONDS (9.7-12.2) H 11/05/18 09:04 INR 1.5 11/05/18 09:04 APTT 35 SECONDS (21-34) H 11/05/18 09:04
--- NOTE | 2018-11-12 18:29 | CP.PCM.PN ---
Subjective - Date & Time of Evaluation Date of Evaluation: 11/12/18 Time of Evaluation: 18:24 - Subjective Subjective: INFECTIOUS DISEASE PROGRESS NOTES MARK ANTHONY DOLAN MD, FACP 11/12/2018 CHART REVIEWED PT EXAMINED CASE DISCUSSED AFEBRILE SINCE STARTED THE NSAID SINGLE STRESS TEST CT'S NOTED-PERICARDIAL EFFUSION NOTED AGAIN, NO GALLSTONES-CONSIDER HIDA REPEAT QUANTIFERON GOLD PLUS IS NEGATIVE! CERULOPLASMIN TEST IS NEGATIVE, LESS PROBABLITY FOR LYPHOMA CMV IS NOW MORE PHYSIOLOGICAL,, WITH PCR DNA IS NEGATIVE CONCEPCION IS NEATIVE CONTINUE MERREM D/C CUBICIN THIS WEEKEND. DISCUSSED WITH DR GUERRERO REVIEWED CARDIOLOGY NOTES. TRIAL NOTED, DISCUSSED WITH PATHOLOGY. Objective - Vital Signs/Intake and Output Vital Signs (last 24 hours): Temp Pulse Resp BP Pulse Ox 99.4 F 89 20 116/68 95 11/12/18 15:35 11/12/18 17:12 11/12/18 15:35 11/12/18 17:55 11/12/18 15:35 - Medications Medications: Current Medications Acetaminophen (Tylenol 325mg Tab) 650 mg PO Q8H PRN PRN Reason: PAIN OR FEVER Aspirin (Aspirin Chewable) 81 mg PO DAILY [facility] Last Admin: 11/12/18 11:01 Dose: 81 mg Colchicine (Colocrys) 0.6 mg PO DAILY [facility] Last Admin: 11/12/18 11:19 Dose: 0.6 mg Meropenem 500 mg/ Sodium (Chloride) 100 mls @ 100 mls/hr IVPB Q8H [facility]; Protocol Last Admin: 11/12/18 17:55 Dose: 100 mls/hr Daptomycin 400 mg/ Sodium (Chloride) 100 mls @ 100 mls/hr IV Q24H [facility]; Protocol Stop: 11/13/18 18:01 Last Admin: 11/11/18 18:50 Dose: 100 mls/hr Metoprolol Tartrate (Lopressor) 25 mg PO BID [facility] Last Admin: 11/12/18 17:55 Dose: 25 mg Multivitamins (Hexavitamin) 1 tab PO DAILY [facility] Last Admin: 11/12/18 11:01 Dose: 1 tab - Labs Labs: 11/11/18 11:36 11/11/18 11:36 PT 16.7 SECONDS (9.7-12.2) H 11/05/18 09:04 INR 1.5 11/05/18 09:04 APTT 35 SECONDS (21-34) H 11/05/18 09:04
[2018-11-12 19:18] LABS: CHOLESTEROL PLEURAL FLUID 52 mg/dL
--- NOTE | 2018-11-12 20:13 | CP.PCM.PN ---
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 Will follow if she continue to improve will deferred any transfer to academic institution. She is in better spirit. Case discussed with health consultant and patient. Family where present at bed side. Objective - Vital Signs/Intake and Output Vital Signs (last 24 hours): Temp Pulse Resp BP Pulse Ox 99.4 F 89 20 116/68 95 11/12/18 15:35 11/12/18 17:12 11/12/18 15:35 11/12/18 17:55 11/12/18 15:35 - Medications Medications: Current Medications Acetaminophen (Tylenol 325mg Tab) 650 mg PO Q8H PRN PRN Reason: PAIN OR FEVER Aspirin (Aspirin Chewable) 81 mg PO DAILY [facility] Last Admin: 11/12/18 11:01 Dose: 81 mg Colchicine (Colocrys) 0.6 mg PO DAILY [facility] Last Admin: 11/12/18 11:19 Dose: 0.6 mg Daptomycin 400 mg/ Sodium (Chloride) 100 mls @ 100 mls/hr IV Q24H [facility]; Protocol Stop: 11/13/18 18:01 Last Admin: 11/12/18 19:28 Dose: 100 mls/hr Meropenem 500 mg/ Sodium (Chloride) 100 mls @ 100 mls/hr IVPB Q8H [facility]; Protocol Stop: 11/18/18 01:01 Metoprolol Tartrate (Lopressor) 25 mg PO BID [facility] Last Admin: 11/12/18 17:55 Dose: 25 mg Multivitamins (Hexavitamin) 1 tab PO DAILY [facility] Last Admin: 11/12/18 11:01 Dose: 1 tab - Labs Labs: 11/11/18 11:36 11/11/18 11:36 PT 16.7 SECONDS (9.7-12.2) H 11/05/18 09:04 INR 1.5 11/05/18 09:04 APTT 35 SECONDS (21-34) H 11/05/18 09:04 - Constitutional Appears: Chronically Ill - Head Exam Head Exam: ATRAUMATIC, NORMAL INSPECTION, NORMOCEPHALIC - Eye Exam Eye Exam: Normal appearance - ENT Exam ENT Exam: Normal Exam - Neck Exam Neck Exam: Full ROM - Respiratory Exam Respiratory Exam: Decreased Breath Sounds - Cardiovascular Exam Cardiovascular Exam: Irregular Rhythm, +S1, +S2 - GI/Abdominal Exam GI & Abdominal Exam: Normal Bowel Sounds - Extremities Exam Extremities Exam: Full ROM - Neurological Exam Neurological Exam: Alert, Awake, CN II-XII Intact, Oriented x3 - Psychiatric Exam Psychiatric exam: Flat Affect - Skin Skin Exam: Normal Color Assessment and Plan (1) Rapid atrial fibrillation Status: Acute (2) Symptomatic anemia Status: Acute (3) Atrial fibrillation Status: Acute (4) Hypertensive cardiovascular disease Status: Acute (5) Wide-complex tachycardia Status: Acute (6) Hypertension Status: Chronic (7) Pericardial effusion Status: Acute (8) Cardiac tamponade Status: Acute (9) Pleural effusion Status: Acute (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
[2018-11-13] MEDS ORDERED: Metoprolol 1 mg/ml Inj IVP ONE (03:39)
[2018-11-13 07:27] LABS: BASO % 0.7 % (0.0-2.0); EOS # 0.1 K/uL (0.0-0.7); HEMOGLOBIN 11.2 g/dL (11.0-16.0); LYMPH # 1.5 K/uL (1.0-4.3); LYMPH % 20.7 % (20.0-40.0); MEAN CELL VOLUME 85.7 fL (81.0-99.0); MEAN CORPUSCULAR HEMOGLOBIN 27.5 pg (27.0-31.0); MEAN CORPUSCULAR HGB CONC 32.1 g/dL (33.0-37.0); MEAN PLATELET VOLUME 7.6 fL (7.2-11.7); MONO # 1.1 K/uL (0.0-0.8); MONO % 15.9 % (0.0-10.0); NEUT # 4.3 K/uL (1.8-7.0); NEUT % 60.7 % (50.0-75.0); RBC 4.06 Mil/uL (3.80-5.20); RED CELL DISTRIBUTION WIDTH 23.3 % (11.5-14.5)
[2018-11-13 07:48] LABS: ALB/GLOB RATIO 0.8 (1.0-2.1); ALBUMIN 2.6 g/dL (3.5-5.0); ALT/SGPT 26 U/L (9-52); AST/SGOT 42 U/L (14-36); BLOOD UREA NITROGEN 7 mg/dL (7-17); CALCIUM 8.4 mg/dl (8.6-10.4); GFR NON-AFRICAN AMERICAN > 60
--- NOTE | 2018-11-13 08:30 | CARD ---
APPROVED REPORT Date of service: 11/12/2018 EXAM: Two-dimensional and M-mode echocardiogram with Doppler and color Doppler. Other Information Quality : GoodRhythm : INDICATION Pleural Effusion limited echo for F/U pericardial effusion M-Mode DIMENSIONS [id number] (2.1-3.2cm) Mitral Valve E/A ratio0.0 TDI E/Lateral E'0.0E/Medial E'0.0 <Conclusion> Limited f/u ECHO study s/p Pericardial window Small pericardial effusion essentially resolved c/w the ECHO of 10/25/18 Left pleural effusion Normal LV EF
[2018-11-13] MEDS: Multiple Vitamins Tab PO SCH (09:11)
[2018-11-13] MEDS: Meropenem 500 MG in Sodium Chloride 0.9% 100 ML IVPB SCH ×3 (09:37→16:41)
--- NOTE | 2018-11-13 13:03 | CP.PCM.PN ---
Subjective - Date & Time of Evaluation Date of Evaluation: 11/13/18 Time of Evaluation: 13:03 - Subjective Subjective: No significant changes, less pericardial effusion, tachycardiac at times. Slowly improving Objective - Vital Signs/Intake and Output Vital Signs (last 24 hours): Temp Pulse Resp BP Pulse Ox 98.6 F 73 20 119/70 98 11/13/18 07:00 11/13/18 09:10 11/13/18 07:00 11/13/18 09:11 11/13/18 07:00 Intake and Output: 11/13/18 11/13/18 11:59 23:59 Intake Total 340 Balance 340 - Medications Medications: Current Medications Acetaminophen (Tylenol 325mg Tab) 650 mg PO Q8H PRN PRN Reason: PAIN OR FEVER Aspirin (Aspirin Chewable) 81 mg PO DAILY [facility] Last Admin: 11/13/18 09:11 Dose: 81 mg Colchicine (Colocrys) 0.6 mg PO DAILY [facility] Last Admin: 11/13/18 09:11 Dose: 0.6 mg Meropenem 500 mg/ Sodium (Chloride) 100 mls @ 100 mls/hr IVPB Q8H [facility]; Protocol Stop: 11/18/18 01:01 Last Admin: 11/13/18 09:37 Dose: 100 mls/hr Metoprolol Tartrate (Lopressor) 25 mg PO BID [facility] Last Admin: 11/13/18 09:11 Dose: 25 mg Multivitamins (Hexavitamin) 1 tab PO DAILY [facility] Last Admin: 11/13/18 09:11 Dose: 1 tab - Labs Labs: 11/13/18 07:16 11/13/18 07:16 PT 16.7 SECONDS (9.7-12.2) H 11/05/18 09:04 INR 1.5 11/05/18 09:04 APTT 35 SECONDS (21-34) H 11/05/18 09:04 - Constitutional Appears: Cachectic, Chronically Ill - Head Exam Head Exam: ATRAUMATIC, NORMAL INSPECTION, NORMOCEPHALIC - ENT Exam ENT Exam: Mucous Membranes Moist - Neck Exam Neck Exam: Full ROM - Respiratory Exam Respiratory Exam: Decreased Breath Sounds - Cardiovascular Exam Cardiovascular Exam: Irregular Rhythm, +S1, +S2 - Neurological Exam Neurological Exam: Alert, Awake, CN II-XII Intact, Oriented x3 - Psychiatric Exam Psychiatric exam: Depressed - Skin Skin Exam: Pallor Assessment and Plan (1) Rapid atrial fibrillation Status: Acute (2) Symptomatic anemia Status: Acute (3) Atrial fibrillation Status: Acute (4) Hypertensive cardiovascular disease Status: Acute (5) Wide-complex tachycardia Status: Acute (6) Hypertension Status: Chronic (7) Pericardial effusion Status: Acute (8) Cardiac tamponade Status: Acute (9) Pleural effusion Status: Acute (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
[2018-11-13] MEDS ORDERED: Digoxin 500 mcg/2ml (0.5 mg/2ml) Inj IVP ONE (16:19)
[2018-11-13] MEDS: Enoxaparin 40 mg Syringe SC SCH (16:41)
--- NOTE | 2018-11-13 16:59 | CP.PCM.PN ---
Subjective - Date & Time of Evaluation Date of Evaluation: 11/13/18 Time of Evaluation: 16:49 - Subjective Subjective: Patient seen evaluated Tachycardia Borderline BP Feels weak. 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 Now on ASA 81 and Colchicine 0.6 mg daily Rpt ECHO: Much improved effusion after pericardial window. EF normal Pleural effusion still there Un able to give therapeutic high dose of ASA due to prior bleeding Un able to give steroids due to positive viral titers and underlying TB still a possibility D/W Dr. Perez 2. R/O PE Stat CTA ordered Lovenox 40sc started. Watch for bleeding 3. Tachycardia Digoxin and IVF for now Please call Dr. Ravi for rhythm management Dr. America Ward consulted for a 2nd opinion Dr. Alfaro on board for Pulmonary/Critical D/W Dr. Wheeler PMD D/W patient's who expressed satisfaction for her care so far Physical examination - Constitutional Appears: Well, Non-toxic, No Acute Distress - Head Exam Head Exam: ATRAUMATIC, NORMAL INSPECTION - Eye Exam Eye Exam: EOMI - ENT Exam ENT Exam: Mucous Membranes Moist - Neck Exam Neck Exam: Full ROM - Respiratory Exam Respiratory Exam: Clear to Ausculation Bilateral, Rales, NORMAL BREATHING PATTERN. absent: Wheezes - Cardiovascular Exam Cardiovascular Exam: Irregular Rhythm, +S1, +S2 - GI/Abdominal Exam GI & Abdominal Exam: Normal Bowel Sounds - Extremities Exam Extremities Exam: Normal Inspection - Back Exam Back Exam: NORMAL INSPECTION - Neurological Exam Neurological Exam: Alert, Awake, Oriented x3 - Skin Skin Exam: Normal Color Objective - Vital Signs/Intake and Output Vital Signs (last 24 hours): Temp Pulse Resp BP Pulse Ox 99.4 F 104 H 18 100/75 95 11/13/18 15:00 11/13/18 15:54 11/13/18 15:00 11/13/18 15:00 11/13/18 15:00 Intake and Output: 11/13/18 11/13/18 06:59 18:59 Intake Total 340 Balance 340 - Medications Medications: Current Medications Acetaminophen (Tylenol 325mg Tab) 650 mg PO Q8H PRN PRN Reason: PAIN OR FEVER Aspirin (Aspirin Chewable) 81 mg PO DAILY [facility] Last Admin: 11/13/18 09:11 Dose: 81 mg Colchicine (Colocrys) 0.6 mg PO DAILY [facility] Last Admin: 11/13/18 09:11 Dose: 0.6 mg Digoxin (Lanoxin) 0.25 mg PO DAILY@1800 [facility] Enoxaparin Sodium (Lovenox) 40 mg SC DAILY [facility] Last Admin: 11/13/18 16:41 Dose: 40 mg Meropenem 500 mg/ Sodium (Chloride) 100 mls @ 100 mls/hr IVPB Q8H [facility]; Protocol Stop: 11/18/18 01:01 Last Admin: 11/13/18 16:41 Dose: 100 mls/hr Sodium Chloride (Sodium Chloride 0.9%) 1,000 mls @ 80 mls/hr IV .[id number] [facility] Stop: 11/14/18 23:59 Metoprolol Tartrate (Lopressor) 25 mg PO BID [facility] Last Admin: 11/13/18 09:11 Dose: 25 mg Multivitamins (Hexavitamin) 1 tab PO DAILY [facility] Last Admin: 11/13/18 09:11 Dose: 1 tab - Labs Labs: 11/13/18 07:16 11/13/18 07:16 PT 16.7 SECONDS (9.7-12.2) H 11/05/18 09:04 INR 1.5 11/05/18 09:04 APTT 35 SECONDS (21-34) H 11/05/18 09:04
[2018-11-13] MEDS: Sodium Chloride 0.9% 1,000 ML IV SCH (17:40)
[2018-11-13] MEDS ORDERED: Iodixanol 320 MG/ML 100 ML BOTTLE IV ONE (19:00)
--- NOTE | 2018-11-13 23:52 | CP.PCM.PN ---
Subjective - Date & Time of Evaluation Date of Evaluation: 11/13/18 Time of Evaluation: 12:00 - Subjective Subjective: INFECTIUS DISEASE PROGRESS NOTES MARK ANTHONY DOLAN MD, FACP CHART REVIEWED CASE DISCUSSED PERSONALLY WITH DR KHAN, AND DR GUERRERO EXAMINE NOTED AFEBRILE NOW SINCE THE NSAID STRESS TEST- CLINICALLY MORE STABLE EXCEPT FOR TACHYCARDIA-CARDIOLOGY AWARE. YESTERDAY DISCUSSED WITH HEAD OF PATHOLOGY TO SEND PERICARIDAL TISSUE FOR TB PCR, APPARENTLY [facility] HAS AN ISSUE, BUT THIS IS AN AVAILABLE TEST WITH OTHER STANDARD LABS, MORE INFOR TO FOLLOW. PATHOLOGY AWARE. DISCUSSED WITH DR KHAN, WOULD WITH HOLD PREDNISONE PRESENTLY WHILE TBC IS IN THE DIFFERENTIAL. COLCHININE AND ASA ACCEPTABLE ID [facility], WATCH FOR BLEEDING. AWAITING OTHER TB URINE AFB TESTS IN THE MEANTIME. CALL ME FOR ANY ID ISSUES, TEMPS AND OR LAB REPORTS MADE AVAILABLE FOR EVALUATION. D/C CUBICIN THIS MORNING. WILL D/C ANTIBIOTICS ROUTINE BACTERIOLOGICAL C/S COME BACK, IF NEGATIVE, OF COURSE, AND NOT SIGNIFICANT. THANK YOU FEEL FREE TO DISCUSS THIS CASE NEEDED WITH ME. Objective - Vital Signs/Intake and Output Vital Signs (last 24 hours): Temp Pulse Resp BP Pulse Ox 97.4 F L 85 20 100/67 98 11/13/18 20:37 11/13/18 22:19 11/13/18 20:37 11/13/18 20:37 11/13/18 20:37 Intake and Output: 11/13/18 11/14/18 18:59 06:59 Intake Total 860 Balance 860 - Medications Medications: Current Medications Acetaminophen (Tylenol 325mg Tab) 650 mg PO Q8H PRN PRN Reason: Pain, Mild (1-3) Last Admin: 11/13/18 17:39 Dose: 650 mg Aspirin (Aspirin Chewable) 81 mg PO DAILY [facility] Last Admin: 11/13/18 09:11 Dose: 81 mg Colchicine (Colocrys) 0.6 mg PO DAILY [facility] Last Admin: 11/13/18 09:11 Dose: 0.6 mg Digoxin (Lanoxin) 0.25 mg PO DAILY@1800 [facility] Diltiazem HCl (Cardizem) 30 mg PO TID [facility] Last Admin: 11/13/18 20:37 Dose: 30 mg Enoxaparin Sodium (Lovenox) 40 mg SC DAILY [facility] Last Admin: 11/13/18 16:41 Dose: 40 mg Meropenem 500 mg/ Sodium (Chloride) 100 mls @ 100 mls/hr IVPB Q8H [facility]; Protocol Stop: 11/18/18 01:01 Last Admin: 11/13/18 16:41 Dose: 100 mls/hr Sodium Chloride (Sodium Chloride 0.9%) 1,000 mls @ 80 mls/hr IV .[id number] [facility] Stop: 11/14/18 23:59 Last Admin: 11/13/18 17:40 Dose: 80 mls/hr Metoprolol Tartrate (Lopressor) 25 mg PO BID [facility] Last Admin: 11/13/18 19:14 Dose: Not Given Multivitamins (Hexavitamin) 1 tab PO DAILY [facility] Last Admin: 11/13/18 09:11 Dose: 1 tab - Labs Labs: 11/13/18 07:16 11/13/18 07:16 PT 16.7 SECONDS (9.7-12.2) H 11/05/18 09:04 INR 1.5 11/05/18 09:04 APTT 35 SECONDS (21-34) H 11/05/18 09:04
[2018-11-14] MEDS: Meropenem 500 MG in Sodium Chloride 0.9% 100 ML IVPB SCH ×3 (00:01→17:21)
[2018-11-14] MEDS: Sodium Chloride 0.9% 1,000 ML IV SCH ×2 (05:04→17:21)
[2018-11-14] MEDS: Multiple Vitamins Tab PO SCH (09:01)
[2018-11-14] MEDS: Enoxaparin 40 mg Syringe SC SCH (09:02)
--- NOTE | 2018-11-14 09:05 | CT ---
Date of service: 11/13/2018 PROCEDURE: CT Chest with contrast (Pulmonary Angiogram) HISTORY: R/O PE COMPARISON: 11/11/2018 TECHNIQUE: Axial computed tomography images were obtained of the chest in the pulmonary arterial phase of enhancement. Coronal and sagittal reformatted images were created and reviewed. Intravenous contrast dose: 100 mL Visipaque 320 Radiation dose: Total exam DLP = 417.12 mGy-cm. This CT exam was performed using one or more of the following dose reduction techniques: Automated exposure control, adjustment of the mA and/or kV according to patient size, and/or use of iterative reconstruction technique. FINDINGS: PULMONARY ARTERIES: Unremarkable. No pulmonary embolism. AORTA: No acute findings. No thoracic aortic aneurysm. There is atherosclerotic calcification of the thoracic aorta. LUNGS: No infiltrate. Bilateral lower lobe subsegmental atelectasis, left greater than right. No significant change in extent compared to prior. PLEURAL SPACES: Moderate left and small right pleural effusion. HEART: Cardiomegaly. Small pericardial effusion. Pacemaker. LYMPH NODES: No lymphadenopathy. BONES, CHEST WALL: No acute fracture. Probable bone island of the T7 vertebral body. OTHER FINDINGS: Nodular hepatic contour consistent with hepatic cirrhosis. IMPRESSION: No evidence of pulmonary embolism. Bilateral pleural effusion, left greater than right with slight increase in left pleural effusion compared to prior. Bilateral lower lobe subsegmental atelectasis, left greater than right. Small pericardial effusion. The preliminary findings for this examination were reported by [facility] at 7:19 p.m. on 11/13/2018. There is concurrence of this report with the preliminary findings.
--- NOTE | 2018-11-14 13:29 | CP.PCM.PN ---
Subjective - Date & Time of Evaluation Date of Evaluation: 11/14/18 Time of Evaluation: 13:29 - Subjective Subjective: Slowly responding to rx, still tachycardia, pleural effusion and pericardial effusion Objective - Vital Signs/Intake and Output Vital Signs (last 24 hours): Temp Pulse Resp BP Pulse Ox 98.2 F 96 H 20 113/78 95 11/14/18 07:17 11/14/18 11:44 11/14/18 07:17 11/14/18 09:01 11/14/18 07:17 Intake and Output: 11/14/18 11/14/18 11:59 23:59 Intake Total 740 Balance 740 - Medications Medications: Current Medications Acetaminophen (Tylenol 325mg Tab) 650 mg PO Q8H PRN PRN Reason: Pain, Mild (1-3) Last Admin: 11/13/18 17:39 Dose: 650 mg Aspirin (Aspirin Chewable) 81 mg PO DAILY [facility] Last Admin: 11/14/18 09:01 Dose: 81 mg Colchicine (Colocrys) 0.6 mg PO DAILY [facility] Last Admin: 11/14/18 09:01 Dose: 0.6 mg Digoxin (Lanoxin) 0.25 mg PO DAILY@1800 [facility] Diltiazem HCl (Cardizem) 30 mg PO TID [facility] Last Admin: 11/14/18 09:01 Dose: 30 mg Enoxaparin Sodium (Lovenox) 40 mg SC DAILY [facility] Last Admin: 11/14/18 09:02 Dose: 40 mg Meropenem 500 mg/ Sodium (Chloride) 100 mls @ 100 mls/hr IVPB Q8H [facility]; Protocol Stop: 11/18/18 01:01 Last Admin: 11/14/18 08:22 Dose: 100 mls/hr Sodium Chloride (Sodium Chloride 0.9%) 1,000 mls @ 80 mls/hr IV .[id number] [facility] Stop: 11/14/18 23:59 Last Admin: 11/14/18 05:04 Dose: 80 mls/hr Metoprolol Tartrate (Lopressor) 25 mg PO BID [facility] Last Admin: 11/14/18 09:01 Dose: 25 mg Multivitamins (Hexavitamin) 1 tab PO DAILY [facility] Last Admin: 11/14/18 09:01 Dose: 1 tab - Labs Labs: 11/13/18 07:16 11/13/18 07:16 PT 16.7 SECONDS (9.7-12.2) H 11/05/18 09:04 INR 1.5 11/05/18 09:04 APTT 35 SECONDS (21-34) H 11/05/18 09:04 - Constitutional Appears: Cachectic, Chronically Ill - Head Exam Head Exam: ATRAUMATIC, NORMAL INSPECTION, NORMOCEPHALIC - Eye Exam Eye Exam: Normal appearance Pupil Exam: PERRL - ENT Exam ENT Exam: Mucous Membranes Moist - Neck Exam Neck Exam: Full ROM - Respiratory Exam Respiratory Exam: Decreased Breath Sounds - Cardiovascular Exam Cardiovascular Exam: Tachycardia, Irregular Rhythm, +S1, +S2 - GI/Abdominal Exam GI & Abdominal Exam: Normal Bowel Sounds - Extremities Exam Extremities Exam: Normal Inspection - Neurological Exam Neurological Exam: Alert, Awake, CN II-XII Intact, Oriented x3 - Psychiatric Exam Psychiatric exam: Normal Affect Assessment and Plan (1) Rapid atrial fibrillation Status: Acute (2) Symptomatic anemia Status: Acute (3) Atrial fibrillation Status: Acute (4) Hypertensive cardiovascular disease Status: Acute (5) Wide-complex tachycardia Status: Acute (6) Hypertension Status: Chronic (7) Pericardial effusion Status: Acute (8) Cardiac tamponade Status: Acute (9) Pleural effusion Status: Acute (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
[2018-11-14] MEDS: Digoxin 250 mcg (0.25 mg) Tab PO SCH (17:21)
--- NOTE | 2018-11-14 18:58 | CP.PCM.PN ---
Subjective - Date & Time of Evaluation Date of Evaluation: 11/14/18 Time of Evaluation: 18:57 - Subjective Subjective: yesterday called by nurse with CT chest moderate pleural effusion recurrent I recommend to have pig tail will benefit with steroids will add in am Objective - Vital Signs/Intake and Output Vital Signs (last 24 hours): Temp Pulse Resp BP Pulse Ox 99.6 F 100 H 18 103/63 95 11/14/18 15:00 11/14/18 16:00 11/14/18 15:00 11/14/18 15:00 11/14/18 15:00 Intake and Output: 11/14/18 11/14/18 06:59 18:59 Intake Total 1600 Balance 1600 - Medications Medications: Current Medications Acetaminophen (Tylenol 325mg Tab) 650 mg PO Q8H PRN PRN Reason: Pain, Mild (1-3) Last Admin: 11/13/18 17:39 Dose: 650 mg Aspirin (Aspirin Chewable) 81 mg PO DAILY [facility] Last Admin: 11/14/18 09:01 Dose: 81 mg Colchicine (Colocrys) 0.6 mg PO DAILY [facility] Last Admin: 11/14/18 09:01 Dose: 0.6 mg Digoxin (Lanoxin) 0.25 mg PO DAILY@1800 [facility] Last Admin: 11/14/18 17:21 Dose: 0.25 mg Diltiazem HCl (Cardizem) 30 mg PO TID [facility] Last Admin: 11/14/18 17:21 Dose: 30 mg Enoxaparin Sodium (Lovenox) 40 mg SC DAILY [facility] Last Admin: 11/14/18 09:02 Dose: 40 mg Meropenem 500 mg/ Sodium (Chloride) 100 mls @ 100 mls/hr IVPB Q8H [facility]; Protocol Stop: 11/18/18 01:01 Last Admin: 11/14/18 17:21 Dose: 100 mls/hr Sodium Chloride (Sodium Chloride 0.9%) 1,000 mls @ 80 mls/hr IV .[id number] [facility] Stop: 11/14/18 23:59 Last Admin: 11/14/18 17:21 Dose: 80 mls/hr Metoprolol Tartrate (Lopressor) 25 mg PO BID [facility] Last Admin: 11/14/18 17:22 Dose: Not Given Multivitamins (Hexavitamin) 1 tab PO DAILY [facility] Last Admin: 11/14/18 09:01 Dose: 1 tab - Labs Labs: 11/13/18 07:16 11/13/18 07:16 PT 16.7 SECONDS (9.7-12.2) H 11/05/18 09:04 INR 1.5 11/05/18 09:04 APTT 35 SECONDS (21-34) H 11/05/18 09:04
--- NOTE | 2018-11-14 20:54 | CARD ---
APPROVED REPORT Date of service: 11/05/2018 EKG Measurement Heart [id number] <Conclusion> Atrial fibrillation with rapid ventricular response Left axis deviation Left bundle branch block Abnormal ECG
--- NOTE | 2018-11-14 22:26 | CP.PCM.PN ---
Subjective - Date & Time of Evaluation Date of Evaluation: 11/14/18 Time of Evaluation: 08:15 - Subjective Subjective: Patient with no additional events Continue present treatment Objective - Vital Signs/Intake and Output Vital Signs (last 24 hours): Temp Pulse Resp BP Pulse Ox 99.6 F 71 18 103/63 95 11/14/18 15:00 11/14/18 20:24 11/14/18 15:00 11/14/18 15:00 11/14/18 15:00 Intake and Output: 11/14/18 11/15/18 18:59 06:59 Intake Total 860 Balance 860 - Medications Medications: Current Medications Acetaminophen (Tylenol 325mg Tab) 650 mg PO Q8H PRN PRN Reason: Pain, Mild (1-3) Last Admin: 11/13/18 17:39 Dose: 650 mg Aspirin (Aspirin Chewable) 81 mg PO DAILY [facility] Last Admin: 11/14/18 09:01 Dose: 81 mg Colchicine (Colocrys) 0.6 mg PO DAILY [facility] Last Admin: 11/14/18 09:01 Dose: 0.6 mg Digoxin (Lanoxin) 0.25 mg PO DAILY@1800 [facility] Last Admin: 11/14/18 17:21 Dose: 0.25 mg Diltiazem HCl (Cardizem) 30 mg PO TID [facility] Last Admin: 11/14/18 17:21 Dose: 30 mg Enoxaparin Sodium (Lovenox) 40 mg SC DAILY [facility] Last Admin: 11/14/18 09:02 Dose: 40 mg Meropenem 500 mg/ Sodium (Chloride) 100 mls @ 100 mls/hr IVPB Q8H [facility]; Protocol Stop: 11/18/18 01:01 Last Admin: 11/14/18 17:21 Dose: 100 mls/hr Sodium Chloride (Sodium Chloride 0.9%) 1,000 mls @ 80 mls/hr IV .[id number] [facility] Stop: 11/14/18 23:59 Last Admin: 11/14/18 17:21 Dose: 80 mls/hr Metoprolol Tartrate (Lopressor) 25 mg PO BID [facility] Last Admin: 11/14/18 17:22 Dose: Not Given Multivitamins (Hexavitamin) 1 tab PO DAILY [facility] Last Admin: 11/14/18 09:01 Dose: 1 tab - Labs Labs: 11/13/18 07:16 11/13/18 07:16 PT 16.7 SECONDS (9.7-12.2) H 11/05/18 09:04 INR 1.5 11/05/18 09:04 APTT 35 SECONDS (21-34) H 11/05/18 09:04
[2018-11-15] MEDS: Meropenem 500 MG in Sodium Chloride 0.9% 100 ML IVPB SCH ×2 (00:36→09:50)
--- NOTE | 2018-11-15 00:53 | CP.PCM.PN ---
Subjective - Date & Time of Evaluation Date of Evaluation: 11/12/18 Time of Evaluation: 13:00 - Subjective Subjective: Feels tired. Objective - Vital Signs/Intake and Output Vital Signs (last 24 hours): Temp Pulse Resp BP Pulse Ox 99.6 F 71 18 103/63 95 11/14/18 15:00 11/14/18 20:24 11/14/18 15:00 11/14/18 15:00 11/14/18 15:00 Intake and Output: 11/14/18 11/15/18 18:59 06:59 Intake Total 860 Balance 860 - Medications Medications: Current Medications Acetaminophen (Tylenol 325mg Tab) 650 mg PO Q8H PRN PRN Reason: Pain, Mild (1-3) Last Admin: 11/13/18 17:39 Dose: 650 mg Aspirin (Aspirin Chewable) 81 mg PO DAILY [facility] Last Admin: 11/14/18 09:01 Dose: 81 mg Colchicine (Colocrys) 0.6 mg PO DAILY [facility] Last Admin: 11/14/18 09:01 Dose: 0.6 mg Digoxin (Lanoxin) 0.25 mg PO DAILY@1800 [facility] Last Admin: 11/14/18 17:21 Dose: 0.25 mg Diltiazem HCl (Cardizem) 30 mg PO TID [facility] Last Admin: 11/14/18 17:21 Dose: 30 mg Enoxaparin Sodium (Lovenox) 40 mg SC DAILY [facility] Last Admin: 11/14/18 09:02 Dose: 40 mg Meropenem 500 mg/ Sodium (Chloride) 100 mls @ 100 mls/hr IVPB Q8H [facility]; Protocol Stop: 11/18/18 01:01 Last Admin: 11/15/18 00:36 Dose: 100 mls/hr Metoprolol Tartrate (Lopressor) 25 mg PO BID [facility] Last Admin: 11/14/18 17:22 Dose: Not Given Multivitamins (Hexavitamin) 1 tab PO DAILY [facility] Last Admin: 11/14/18 09:01 Dose: 1 tab - Labs Labs: 11/13/18 07:16 11/13/18 07:16 PT 16.7 SECONDS (9.7-12.2) H 11/05/18 09:04 INR 1.5 11/05/18 09:04 APTT 35 SECONDS (21-34) H 11/05/18 09:04 - Head Exam Head Exam: ATRAUMATIC - Eye Exam Eye Exam: Normal appearance - ENT Exam ENT Exam: Mucous Membranes Dry - Respiratory Exam Respiratory Exam: Decreased Breath Sounds - Cardiovascular Exam Cardiovascular Exam: +S1, +S2 - GI/Abdominal Exam GI & Abdominal Exam: Normal Bowel Sounds Assessment and Plan (1) Coagulopathy Assessment & Plan: nutritional, liver disease noted bo deficient factor levels - likely related to decreased synthetic fun ction of liver ?cirrhosis Status: Acute (2) Anemia Assessment & Plan: improved prior iron deficiency; s/p supplementation s/p EGD/colonoscopy Status: Acute (3) Pericardial effusion Assessment & Plan: unclear etiology cytology negative extensive infectious w/u noted Status: Acute (4) Platelet dysfunction Assessment & Plan: resolved Status: Acute
--- NOTE | 2018-11-15 00:56 | CP.PCM.PN ---
Subjective - Date & Time of Evaluation Date of Evaluation: 11/13/18 Time of Evaluation: 17:00 - Subjective Subjective: Feels tired, daughter at bedside Increasing pleural fluid noted by CT Objective - Vital Signs/Intake and Output Vital Signs (last 24 hours): Temp Pulse Resp BP Pulse Ox 99.6 F 71 18 103/63 95 11/14/18 15:00 11/14/18 20:24 11/14/18 15:00 11/14/18 15:00 11/14/18 15:00 Intake and Output: 11/14/18 11/15/18 18:59 06:59 Intake Total 860 Balance 860 - Medications Medications: Current Medications Acetaminophen (Tylenol 325mg Tab) 650 mg PO Q8H PRN PRN Reason: Pain, Mild (1-3) Last Admin: 11/13/18 17:39 Dose: 650 mg Aspirin (Aspirin Chewable) 81 mg PO DAILY [facility] Last Admin: 11/14/18 09:01 Dose: 81 mg Colchicine (Colocrys) 0.6 mg PO DAILY [facility] Last Admin: 11/14/18 09:01 Dose: 0.6 mg Digoxin (Lanoxin) 0.25 mg PO DAILY@1800 [facility] Last Admin: 11/14/18 17:21 Dose: 0.25 mg Diltiazem HCl (Cardizem) 30 mg PO TID [facility] Last Admin: 11/14/18 17:21 Dose: 30 mg Enoxaparin Sodium (Lovenox) 40 mg SC DAILY [facility] Last Admin: 11/14/18 09:02 Dose: 40 mg Meropenem 500 mg/ Sodium (Chloride) 100 mls @ 100 mls/hr IVPB Q8H [facility]; Protocol Stop: 11/18/18 01:01 Last Admin: 11/15/18 00:36 Dose: 100 mls/hr Metoprolol Tartrate (Lopressor) 25 mg PO BID [facility] Last Admin: 11/14/18 17:22 Dose: Not Given Multivitamins (Hexavitamin) 1 tab PO DAILY [facility] Last Admin: 11/14/18 09:01 Dose: 1 tab - Labs Labs: 11/13/18 07:16 11/13/18 07:16 PT 16.7 SECONDS (9.7-12.2) H 11/05/18 09:04 INR 1.5 11/05/18 09:04 APTT 35 SECONDS (21-34) H 11/05/18 09:04 - Head Exam Head Exam: ATRAUMATIC - Eye Exam Eye Exam: Normal appearance - ENT Exam ENT Exam: Mucous Membranes Dry - Respiratory Exam Respiratory Exam: Decreased Breath Sounds - Cardiovascular Exam Cardiovascular Exam: +S1, +S2 - GI/Abdominal Exam GI & Abdominal Exam: Normal Bowel Sounds Assessment and Plan (1) Coagulopathy Assessment & Plan: nutritional, liver disease noted bo deficient factor levels - likely related to decreased synthetic function of liver ?cirrhosis Status: Acute (2) Anemia Assessment & Plan: improved prior iron deficiency; s/p supplementation s/p EGD/colonoscopy Status: Acute (3) Pericardial effusion Assessment & Plan: unclear etiology cytology negative extensive infectious w/u noted Status: Acute (4) Platelet dysfunction Assessment & Plan: resolved Status: Acute
[2018-11-15] MEDS ORDERED: Lidocaine Hydrochloride 10 ML INJ ONE (08:28)
--- NOTE | 2018-11-15 09:05 | PCM.SURG1 ---
Surgeon's Initial Post Op Note - Surgeon's Notes Surgeon: Livan Pierce MD Commercial Property Manager: NONE Type of Anesthesia: Local Pre-Operative Diagnosis: Pleural effusion Operative Findings: US showed large left pleural effusion Post-Operative Diagnosis: Plueral effusion Operation Performed: US guided left thoracentesis Specimen/Specimens Removed: 1100 of lissette colored fluid Estimated Blood Loss: EBL {In ML}: 0 Blood Products Given: N/A Drains Used: No Drains Post-Op Condition: Fair Date of Surgery/Procedure: 11/15/18 Time of Surgery/Procedure: 09:00
[2018-11-15] MEDS: Multiple Vitamins Tab PO SCH (09:40)
[2018-11-15] MEDS: Enoxaparin 40 mg Syringe SC SCH (09:46)
--- NOTE | 2018-11-15 10:13 | US ---
PROCEDURE: Date of procedure: 11/15/2017 Procedure: 1. Ultrasound-guided left thoracentesis, CPT 47531 Medications: 5cc 1% Lidocaine HISTORY: Left pleural effusion, shortness of breath TECHNIQUE: Following informed consent ,the Patients' left chest was marked. Procedure time-out was called, and the patient was placed in the sitting position and limited ultrasound showed a large left effusion. The patient's left back was prepped and draped in the usual sterile fashion. After the skin was anesthetized with lidocaine, a drainage catheter was advanced under ultrasound guidance into the pleural space. Ultrasound-guided thoracentesis was performed. A total of 1100 cubic centimeters of lissette-colored fluid removed without complication. A Xeroform dressing was applied. IMPRESSION: Ultrasound guided left thoracentesis. There were no immediate complications.
--- NOTE | 2018-11-15 10:56 | CP.PCM.PN ---
Subjective - Date & Time of Evaluation Date of Evaluation: 11/15/18 Time of Evaluation: 10:52 - Subjective Subjective: INECTIOUS DISEASE PROGRESS NOTES MARK ANTHONY DOLAN MD, FACP 11/15/2018 CHART REVIEWED PT EXAMINED CASE DISCUSSED AFEBRILE STILL... LEFT MESSAGE WITH HEAD OF PATHOLOGY FOR TB PCR TESTING OF PERICARDIAL TISSUE, INFACT ONE OF THE LABS THAT DOES THIS TEST IS FROM THE [facility]. LOOKS AND FEELS WEAK S/P LEFT THORACENTESIS TO CONSIDER STOPPING [facility] TODAY, DONE, EXTREME CARE WITH PREDNISONE ADVISED, DISCUSSED WITH DR KHAN. CONTINUE MEDICAL MANAGEMENT, [address] [place] [address] EVALAUATION? Objective - Vital Signs/Intake and Output Vital Signs (last 24 hours): Temp Pulse Resp BP Pulse Ox 98.7 F 80 18 134/72 99 11/15/18 09:28 11/15/18 09:28 11/15/18 09:28 11/15/18 09:40 11/15/18 09:28 Intake and Output: 11/15/18 11/15/18 06:59 18:59 Intake Total 1360 Balance 1360 - Medications Medications: Current Medications Acetaminophen (Tylenol 325mg Tab) 650 mg PO Q8H PRN PRN Reason: Pain, Mild (1-3) Last Admin: 11/15/18 09:39 Dose: 650 mg Aspirin (Aspirin Chewable) 81 mg PO DAILY [facility] Last Admin: 11/15/18 09:39 Dose: 81 mg Colchicine (Colocrys) 0.6 mg PO DAILY [facility] Last Admin: 11/15/18 09:45 Dose: 0.6 mg Digoxin (Lanoxin) 0.25 mg PO DAILY@1800 [facility] Last Admin: 11/14/18 17:21 Dose: 0.25 mg Diltiazem HCl (Cardizem) 30 mg PO TID [facility] Last Admin: 11/15/18 09:41 Dose: 30 mg Enoxaparin Sodium (Lovenox) 40 mg SC DAILY [facility] Last Admin: 11/15/18 09:46 Dose: Not Given Meropenem 500 mg/ Sodium (Chloride) 100 mls @ 100 mls/hr IVPB Q8H [facility]; Protocol Stop: 11/18/18 01:01 Last Admin: 11/15/18 09:50 Dose: 100 mls/hr Metoprolol Tartrate (Lopressor) 25 mg PO BID [facility] Last Admin: 11/15/18 09:40 Dose: 25 mg Multivitamins (Hexavitamin) 1 tab PO DAILY [facility] Last Admin: 11/15/18 09:40 Dose: 1 tab - Labs Labs: 11/13/18 07:16 11/13/18 07:16 PT 16.7 SECONDS (9.7-12.2) H 11/05/18 09:04 INR 1.5 11/05/18 09:04 APTT 35 SECONDS (21-34) H 11/05/18 09:04
[2018-11-15 14:03] LABS: VITAMIN C 0.2 mg/dL (0.3-2.7)
[2018-11-15] MEDS: Digoxin 250 mcg (0.25 mg) Tab PO SCH (17:20)
--- NOTE | 2018-11-15 20:07 | CP.PCM.PN ---
Subjective - Date & Time of Evaluation Date of Evaluation: 11/15/18 Time of Evaluation: 20:08 - Subjective Subjective: Improving well s/p pleurocentisis (1100 cc) Will continue present rx Objective - Vital Signs/Intake and Output Vital Signs (last 24 hours): Temp Pulse Resp BP Pulse Ox 99.2 F 71 20 118/60 94 L 11/15/18 16:19 11/15/18 16:20 11/15/18 16:19 11/15/18 17:57 11/15/18 16:19 Intake and Output: 11/15/18 11/15/18 11:59 23:59 Intake Total 500 Balance 500 - Medications Medications: Current Medications Acetaminophen (Tylenol 325mg Tab) 650 mg PO Q8H PRN PRN Reason: Pain, Mild (1-3) Last Admin: 11/15/18 09:39 Dose: 650 mg Aspirin (Aspirin Chewable) 81 mg PO DAILY [facility] Last Admin: 11/15/18 09:39 Dose: 81 mg Colchicine (Colocrys) 0.6 mg PO DAILY [facility] Last Admin: 11/15/18 09:45 Dose: 0.6 mg Digoxin (Lanoxin) 0.25 mg PO DAILY@1800 [facility] Last Admin: 11/15/18 17:20 Dose: 0.25 mg Diltiazem HCl (Cardizem) 30 mg PO TID [facility] Last Admin: 11/15/18 17:13 Dose: Not Given Enoxaparin Sodium (Lovenox) 40 mg SC DAILY [facility] Last Admin: 11/15/18 09:46 Dose: Not Given Methylprednisolone (Solu-Medrol) 40 mg IVP Q12 [facility] Stop: 11/18/18 22:01 Metoprolol Tartrate (Lopressor) 25 mg PO BID [facility] Last Admin: 11/15/18 17:57 Dose: 25 mg Multivitamins (Hexavitamin) 1 tab PO DAILY [facility] Last Admin: 11/15/18 09:40 Dose: 1 tab - Labs Labs: 11/13/18 07:16 11/13/18 07:16 PT 16.7 SECONDS (9.7-12.2) H 11/05/18 09:04 INR 1.5 11/05/18 09:04 APTT 35 SECONDS (21-34) H 11/05/18 09:04 - Constitutional Appears: Cachectic, Chronically Ill - Head Exam Head Exam: ATRAUMATIC, NORMAL INSPECTION, NORMOCEPHALIC - ENT Exam ENT Exam: Normal Exam - Neck Exam Neck Exam: Full ROM - Respiratory Exam Respiratory Exam: Decreased Breath Sounds - Cardiovascular Exam Cardiovascular Exam: Irregular Rhythm, +S1, +S2 - GI/Abdominal Exam GI & Abdominal Exam: Normal Bowel Sounds - Extremities Exam Extremities Exam: Full ROM - Neurological Exam Neurological Exam: Alert, Awake, CN II-XII Intact, Oriented x3 - Psychiatric Exam Psychiatric exam: Normal Affect - Skin Skin Exam: Normal Color Assessment and Plan (1) Rapid atrial fibrillation Status: Acute (2) Symptomatic anemia Status: Acute (3) Atrial fibrillation Status: Acute (4) Hypertensive cardiovascular disease Status: Acute (5) Wide-complex tachycardia Status: Acute (6) Hypertension Status: Chronic (7) Pericardial effusion Status: Acute (8) Cardiac tamponade Status: Acute (9) Pleural effusion Status: Acute (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
[2018-11-15] MEDS: MethylPREDNISolone 40 mg Vial IVP SCH (21:15)
--- NOTE | 2018-11-15 22:57 | CP.PCM.PN ---
Subjective - Date & Time of Evaluation Date of Evaluation: 11/15/18 Time of Evaluation: 22:55 - Subjective Subjective: spoke to IR almost a liter of fluid removed from the left thoracentesis. clear fluid like feels good will continue current treatment. added steroid Objective - Vital Signs/Intake and Output Vital Signs (last 24 hours): Temp Pulse Resp BP Pulse Ox 99.2 F 70 20 118/60 94 L 11/15/18 16:19 11/15/18 20:23 11/15/18 16:19 11/15/18 17:57 11/15/18 16:19 Intake and Output: 11/15/18 11/16/18 18:59 06:59 Intake Total 300 Balance 300 - Medications Medications: Current Medications Acetaminophen (Tylenol 325mg Tab) 650 mg PO Q8H PRN PRN Reason: Pain, Mild (1-3) Last Admin: 11/15/18 09:39 Dose: 650 mg Aspirin (Aspirin Chewable) 81 mg PO DAILY [facility] Last Admin: 11/15/18 09:39 Dose: 81 mg Colchicine (Colocrys) 0.6 mg PO DAILY [facility] Last Admin: 11/15/18 09:45 Dose: 0.6 mg Digoxin (Lanoxin) 0.25 mg PO DAILY@1800 [facility] Last Admin: 11/15/18 17:20 Dose: 0.25 mg Diltiazem HCl (Cardizem) 30 mg PO TID [facility] Last Admin: 11/15/18 17:13 Dose: Not Given Enoxaparin Sodium (Lovenox) 40 mg SC DAILY [facility] Last Admin: 11/15/18 09:46 Dose: Not Given Methylprednisolone (Solu-Medrol) 40 mg IVP Q12 [facility] Stop: 11/18/18 22:01 Last Admin: 11/15/18 21:15 Dose: 40 mg Metoprolol Tartrate (Lopressor) 25 mg PO BID [facility] Last Admin: 11/15/18 17:57 Dose: 25 mg Multivitamins (Hexavitamin) 1 tab PO DAILY [facility] Last Admin: 11/15/18 09:40 Dose: 1 tab - Labs Labs: 11/13/18 07:16 11/13/18 07:16 PT 16.7 SECONDS (9.7-12.2) H 11/05/18 09:04 INR 1.5 11/05/18 09:04 APTT 35 SECONDS (21-34) H 11/05/18 09:04
--- NOTE | 2018-11-15 22:58 | CP.PCM.PN ---
Subjective - Date & Time of Evaluation Date of Evaluation: 11/15/18 Time of Evaluation: 18:00 - Subjective Subjective: Feels tired, s/p thoracentesis Objective - Vital Signs/Intake and Output Vital Signs (last 24 hours): Temp Pulse Resp BP Pulse Ox 99.2 F 70 20 118/60 94 L 11/15/18 16:19 11/15/18 20:23 11/15/18 16:19 11/15/18 17:57 11/15/18 16:19 Intake and Output: 11/15/18 11/16/18 18:59 06:59 Intake Total 300 Balance 300 - Medications Medications: Current Medications Acetaminophen (Tylenol 325mg Tab) 650 mg PO Q8H PRN PRN Reason: Pain, Mild (1-3) Last Admin: 11/15/18 09:39 Dose: 650 mg Aspirin (Aspirin Chewable) 81 mg PO DAILY [facility] Last Admin: 11/15/18 09:39 Dose: 81 mg Colchicine (Colocrys) 0.6 mg PO DAILY [facility] Last Admin: 11/15/18 09:45 Dose: 0.6 mg Digoxin (Lanoxin) 0.25 mg PO DAILY@1800 [facility] Last Admin: 11/15/18 17:20 Dose: 0.25 mg Diltiazem HCl (Cardizem) 30 mg PO TID [facility] Last Admin: 11/15/18 17:13 Dose: Not Given Enoxaparin Sodium (Lovenox) 40 mg SC DAILY [facility] Last Admin: 11/15/18 09:46 Dose: Not Given Methylprednisolone (Solu-Medrol) 40 mg IVP Q12 [facility] Stop: 11/18/18 22:01 Last Admin: 11/15/18 21:15 Dose: 40 mg Metoprolol Tartrate (Lopressor) 25 mg PO BID [facility] Last Admin: 11/15/18 17:57 Dose: 25 mg Multivitamins (Hexavitamin) 1 tab PO DAILY [facility] Last Admin: 11/15/18 09:40 Dose: 1 tab - Labs Labs: 11/13/18 07:16 11/13/18 07:16 PT 16.7 SECONDS (9.7-12.2) H 11/05/18 09:04 INR 1.5 11/05/18 09:04 APTT 35 SECONDS (21-34) H 11/05/18 09:04 - Head Exam Head Exam: ATRAUMATIC - Eye Exam Eye Exam: Normal appearance - ENT Exam ENT Exam: Mucous Membranes Dry - Respiratory Exam Respiratory Exam: NORMAL BREATHING PATTERN - Cardiovascular Exam Cardiovascular Exam: +S1, +S2 - GI/Abdominal Exam GI & Abdominal Exam: Normal Bowel Sounds Assessment and Plan (1) Coagulopathy Assessment & Plan: nutritional, liver disease noted bo deficient factor levels - likely related to decreased synthetic function of liver ?cirrhosis Status: Acute (2) Anemia Assessment & Plan: improved prior iron deficiency; s/p supplementation s/p EGD/colonoscopy Status: Acute (3) Pericardial effusion Assessment & Plan: unclear etiology cytology negative extensive infectious w/u noted Status: Acute (4) Platelet dysfunction Assessment & Plan: resolved Status: Acute
--- NOTE | 2018-11-15 23:49 | CP.PCM.PN ---
Subjective - Date & Time of Evaluation Date of Evaluation: 11/15/18 Time of Evaluation: 23:43 - Subjective Subjective: Patient seen in the [facility] today S/P thoracentasis Feels good Steroids added by will follow Objective - Vital Signs/Intake and Output Vital Signs (last 24 hours): Temp Pulse Resp BP Pulse Ox 99.2 F 70 20 118/60 94 L 11/15/18 16:19 11/15/18 20:23 11/15/18 16:19 11/15/18 17:57 11/15/18 16:19 Intake and Output: 11/15/18 11/16/18 18:59 06:59 Intake Total 300 Balance 300 - Medications Medications: Current Medications Acetaminophen (Tylenol 325mg Tab) 650 mg PO Q8H PRN PRN Reason: Pain, Mild (1-3) Last Admin: 11/15/18 09:39 Dose: 650 mg Aspirin (Aspirin Chewable) 81 mg PO DAILY [facility] Last Admin: 11/15/18 09:39 Dose: 81 mg Colchicine (Colocrys) 0.6 mg PO DAILY [facility] Last Admin: 11/15/18 09:45 Dose: 0.6 mg Digoxin (Lanoxin) 0.25 mg PO DAILY@1800 [facility] Last Admin: 11/15/18 17:20 Dose: 0.25 mg Diltiazem HCl (Cardizem) 30 mg PO TID [facility] Last Admin: 11/15/18 17:13 Dose: Not Given Enoxaparin Sodium (Lovenox) 40 mg SC DAILY [facility] Last Admin: 11/15/18 09:46 Dose: Not Given Methylprednisolone (Solu-Medrol) 40 mg IVP Q12 [facility] Stop: 11/18/18 22:01 Last Admin: 11/15/18 21:15 Dose: 40 mg Metoprolol Tartrate (Lopressor) 25 mg PO BID [facility] Last Admin: 11/15/18 17:57 Dose: 25 mg Multivitamins (Hexavitamin) 1 tab PO DAILY [facility] Last Admin: 11/15/18 09:40 Dose: 1 tab - Labs Labs: 11/13/18 07:16 11/13/18 07:16 PT 16.7 SECONDS (9.7-12.2) H 11/05/18 09:04 INR 1.5 11/05/18 09:04 APTT 35 SECONDS (21-34) H 11/05/18 09:04
--- NOTE | 2018-11-16 07:41 | CP.PCM.PN ---
Subjective - Date & Time of Evaluation Date of Evaluation: 11/16/18 Time of Evaluation: 07:40 - Subjective Subjective: Patient is comfortable more. She is not in any distress. She is feeling much better and her condition. No chest pain no palpitation noted. Currently the heart rate is 71 bpm On examination: Vital signs are stable otherwise. Chest bilateral good air entry, no wheezing or rales noted. Regular [place] Nontender abdomen. 1+ pedal edema noted 62-year-old female admitted with pericardial, pleural effusion atrial flutter fibrillation. Currently stable otherwise. Responding likely to current treatment. Added Solu-Medrol yesterday we will follow-up Objective - Vital Signs/Intake and Output Vital Signs (last 24 hours): Temp Pulse Resp BP Pulse Ox 98.4 F 70 20 100/62 96 11/15/18 23:00 11/15/18 23:56 11/15/18 23:00 11/15/18 23:00 11/15/18 23:00 Intake and Output: 11/16/18 11/16/18 06:59 18:59 Intake Total 300 200 Balance 300 200 - Medications Medications: Current Medications Acetaminophen (Tylenol 325mg Tab) 650 mg PO Q8H PRN PRN Reason: Pain, Mild (1-3) Last Admin: 11/15/18 09:39 Dose: 650 mg Aspirin (Aspirin Chewable) 81 mg PO DAILY [facility] Last Admin: 11/15/18 09:39 Dose: 81 mg Colchicine (Colocrys) 0.6 mg PO DAILY [facility] Last Admin: 11/15/18 09:45 Dose: 0.6 mg Digoxin (Lanoxin) 0.25 mg PO DAILY@1800 [facility] Last Admin: 11/15/18 17:20 Dose: 0.25 mg Diltiazem HCl (Cardizem) 30 mg PO TID [facility] Last Admin: 11/15/18 17:13 Dose: Not Given Enoxaparin Sodium (Lovenox) 40 mg SC DAILY [facility] Last Admin: 11/15/18 09:46 Dose: Not Given Methylprednisolone (Solu-Medrol) 40 mg IVP Q12 [facility] Stop: 11/18/18 22:01 Last Admin: 11/15/18 21:15 Dose: 40 mg Metoprolol Tartrate (Lopressor) 25 mg PO BID [facility] Last Admin: 11/15/18 17:57 Dose: 25 mg Multivitamins (Hexavitamin) 1 tab PO DAILY [facility] Last Admin: 11/15/18 09:40 Dose: 1 tab - Labs Labs: 11/13/18 07:16 11/13/18 07:16 PT 16.7 SECONDS (9.7-12.2) H 11/05/18 09:04 INR 1.5 11/05/18 09:04 APTT 35 SECONDS (21-34) H 11/05/18 09:04
--- NOTE | 2018-11-16 09:39 | RAD ---
Date of service: 11/16/2018 HISTORY: pleural effusion COMPARISON: 11/08/2018 TECHNIQUE: Chest PA and lateral views FINDINGS: LUNGS: Slight improved aeration at the left lung base-the prior moderate left pleural effusion is smaller now. Compressive atelectasis here is inferred. Any concomitant infiltrate here cannot be excluded. PLEURA: Moderate left pleural effusion decreased now small. The prior small right pleural effusion is even smaller-now minimal No pneumothorax appreciated. Trace biapical pleural thickening suggested similar CARDIOVASCULAR: There is presence of aortic atherosclerotic calcification on x-ray. Mild cardiomegaly-less now than before. Prior pulmonary venous congestion appears less. Dual lead pacemaker device in place-leads appear intact position appears satisfactory. OSSEOUS STRUCTURES: Cervical apophyseal joint arthrosis. Minimal bilateral shoulder arthrosis. VISUALIZED UPPER ABDOMEN: Normal. OTHER FINDINGS: None. IMPRESSION: Interval decreased left pleural effusion now small. Interval improved aeration at the left lung base. Residual left basal compressive atelectasis with a small to moderate residual effusion still suggested. Other findings as above.
[2018-11-16] MEDS: Multiple Vitamins Tab PO SCH (10:52)
[2018-11-16] MEDS: MethylPREDNISolone 40 mg Vial IVP SCH ×2 (10:52→22:14)
[2018-11-16] MEDS: Enoxaparin 40 mg Syringe SC SCH (10:53)
--- NOTE | 2018-11-16 12:01 | CP.PCM.PN ---
Subjective - Date & Time of Evaluation Date of Evaluation: 11/16/18 Time of Evaluation: 09:00 - Subjective Subjective: Patient improving well. Objective - Vital Signs/Intake and Output Vital Signs (last 24 hours): Temp Pulse Resp BP Pulse Ox 97.2 F L 70 18 106/58 L 93 L 11/16/18 08:13 11/16/18 08:13 11/16/18 08:13 11/16/18 10:53 11/16/18 08:13 Intake and Output: 11/15/18 11/16/18 23:59 11:59 Intake Total 300 200 Balance 300 200 - Medications Medications: Current Medications Acetaminophen (Tylenol 325mg Tab) 650 mg PO Q8H PRN PRN Reason: Pain, Mild (1-3) Last Admin: 11/15/18 09:39 Dose: 650 mg Aspirin (Aspirin Chewable) 81 mg PO DAILY [facility] Last Admin: 11/16/18 10:52 Dose: 81 mg Colchicine (Colocrys) 0.6 mg PO DAILY [facility] Last Admin: 11/16/18 10:53 Dose: 0.6 mg Digoxin (Lanoxin) 0.25 mg PO DAILY@1800 [facility] Last Admin: 11/15/18 17:20 Dose: 0.25 mg Diltiazem HCl (Cardizem) 30 mg PO TID [facility] Last Admin: 11/16/18 10:52 Dose: 30 mg Enoxaparin Sodium (Lovenox) 40 mg SC DAILY [facility] Last Admin: 11/16/18 10:53 Dose: Not Given Methylprednisolone (Solu-Medrol) 40 mg IVP Q12 [facility] Stop: 11/18/18 22:01 Last Admin: 11/16/18 10:52 Dose: 40 mg Metoprolol Tartrate (Lopressor) 25 mg PO BID [facility] Last Admin: 11/16/18 10:53 Dose: Not Given Multivitamins (Hexavitamin) 1 tab PO DAILY [facility] Last Admin: 11/16/18 10:52 Dose: 1 tab - Labs Labs: 11/13/18 07:16 11/13/18 07:16 PT 16.7 SECONDS (9.7-12.2) H 11/05/18 09:04 INR 1.5 11/05/18 09:04 APTT 35 SECONDS (21-34) H 11/05/18 09:04 - Constitutional Appears: Chronically Ill - Head Exam Head Exam: ATRAUMATIC, NORMAL INSPECTION, NORMOCEPHALIC - Eye Exam Eye Exam: Normal appearance - ENT Exam ENT Exam: Normal Exam - Respiratory Exam Respiratory Exam: Decreased Breath Sounds - Cardiovascular Exam Cardiovascular Exam: Irregular Rhythm, +S1, +S2 - GI/Abdominal Exam GI & Abdominal Exam: Normal Bowel Sounds - Neurological Exam Neurological Exam: Alert, Awake, CN II-XII Intact, Oriented x3 - Psychiatric Exam Psychiatric exam: Flat Affect - Skin Skin Exam: Normal Color Assessment and Plan (1) Rapid atrial fibrillation Status: Acute (2) Symptomatic anemia Status: Acute (3) Atrial fibrillation Status: Acute (4) Hypertensive cardiovascular disease Status: Acute (5) Wide-complex tachycardia Status: Acute (6) Hypertension Status: Chronic (7) Pericardial effusion Status: Acute (8) Cardiac tamponade Status: Acute (9) Pleural effusion Status: Acute (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
--- NOTE | 2018-11-16 14:41 | CP.PCM.PN ---
Subjective - Date & Time of Evaluation Date of Evaluation: 11/16/18 Time of Evaluation: 14:39 - Subjective Subjective: INFECTIOUS DISEASE PROGRESS NOTES MARK ANTHONY DOLAN MD, FACP 11/16/2018 CHART REVIEWED PT EXAMINED CASE DISCUSSED STABLE ID [facility], URINE AFB SMEAR NEGATIVE, C/S SENT DIRECTOR OF PATHOLOGY TIRED TO SEND LABS TO [facility] FOR TB PCR BUT PERICARDIUM NOT SENT YET. CLINCIALLY STABLE, LIMIT USE OF STEROIDS. SPOKE WITH COVERING PATHOLOGIST MARI PERSONALLY TODAY AND DEMONSTRATED THE [facility] TEST REQUIRED FOR TB PCR FROM THE PERICARDIUM. Objective - Vital Signs/Intake and Output Vital Signs (last 24 hours): Temp Pulse Resp BP Pulse Ox 97.2 F L 72 18 106/58 L 96 11/16/18 08:13 11/16/18 10:48 11/16/18 08:13 11/16/18 10:53 11/16/18 10:48 Intake and Output: 11/16/18 11/16/18 06:59 18:59 Intake Total 300 200 Balance 300 200 - Medications Medications: Current Medications Acetaminophen (Tylenol 325mg Tab) 650 mg PO Q8H PRN PRN Reason: Pain, Mild (1-3) Last Admin: 11/15/18 09:39 Dose: 650 mg Aspirin (Aspirin Chewable) 81 mg PO DAILY [facility] Last Admin: 11/16/18 10:52 Dose: 81 mg Colchicine (Colocrys) 0.6 mg PO DAILY [facility] Last Admin: 11/16/18 10:53 Dose: 0.6 mg Digoxin (Lanoxin) 0.25 mg PO DAILY@1800 [facility] Last Admin: 11/15/18 17:20 Dose: 0.25 mg Diltiazem HCl (Cardizem) 30 mg PO TID [facility] Last Admin: 11/16/18 13:20 Dose: 30 mg Enoxaparin Sodium (Lovenox) 40 mg SC DAILY [facility] Last Admin: 11/16/18 10:53 Dose: Not Given Methylprednisolone (Solu-Medrol) 40 mg IVP Q12 [facility] Stop: 11/18/18 22:01 Last Admin: 11/16/18 10:52 Dose: 40 mg Metoprolol Tartrate (Lopressor) 25 mg PO BID [facility] Last Admin: 11/16/18 10:53 Dose: Not Given Multivitamins (Hexavitamin) 1 tab PO DAILY [facility] Last Admin: 11/16/18 10:52 Dose: 1 tab - Labs Labs: 11/13/18 07:16 11/13/18 07:16 PT 16.7 SECONDS (9.7-12.2) H 11/05/18 09:04 INR 1.5 11/05/18 09:04 APTT 35 SECONDS (21-34) H 11/05/18 09:04
[2018-11-16] MEDS: Digoxin 250 mcg (0.25 mg) Tab PO SCH (17:30)
--- NOTE | 2018-11-16 18:49 | CP.PCM.CON ---
History of Present Illness - History of Present Illness History of Present Illness: I was asked by Dr wilks to provide a second cardiology opinion. I have reviewed all asepcts of her medical record including previous ho spitalizations, procedure reports, laboratory data. Previous consultnants notes have been reviewed. The patient's previous history has been well documented by consultants. She denies current chest pain. She is s/p thoracentesis. Review of Systems - Constitutional Constitutional: Fatigue, Weight Loss - EENT Eyes: absent: As Per HPI, Blind Spots, Blurred Vision, Change in Vision, Decreased Night Vision, Diplopia, Discharge, Dry Eye, Exophthalmos, Floaters, Irritation, Itchy Eyes, Loss of Peripheral Vision, Pain, Photophobia, Requires Corrective Lenses, Sees Flashes, Spots in Vision, Tunnel Vision, Other Visual Disturbances, Loss of Vision, Other Ears: absent: As Per HPI, Decreased Hearing, Ear Discharge, Ear Pain, Tinnitus, Abnormal Hearing, Disequilibrium, Dizziness, Other Nose/Mouth/Throat: absent: As Per HPI, Epistaxis, Nasal Congestion, Nasal Discharge, Nasal Obstruction, Nasal Trauma, Nose Pain, Post Nasal Drip, Sinus Pain, Sinus Pressure, Bleeding Gums, Change in Voice, Dental Pain, Dry Mouth, Dysphagia, Halitosis, Hoarsness, Lip Swelling, Mouth Lesions, Mouth Pain, Odynophagia, Sore Throat, Throat Swelling, Tongue Swelling, Facial Pain, Neck Pain, Neck Mass, Other - Cardiovascular Cardiovascular: Dyspnea - Respiratory Respiratory: Dyspnea - Gastrointestinal Gastrointestinal: absent: As Per HPI, Abdominal Pain, Belching, Bloating, Change in Bowel Habits, Change in Stool Character, Coffee Ground Emesis, Constipation, Cramping, Diarrhea, Dyspepsia, Dysphagia, Early Satiety, Excessive Flatus, Fecal Incontinence, Heartburn, Hematemesis, Hematochezia, Loose Stools, Melena, Nausea, Odynophagia, Temesmus, Vomiting, Other - Genitourinary Genitourinary: absent: As Per HPI, Change in Urinary Stream, Difficulty Urinating, Dysuria, Flank Pain, Hematuria, Pyuria, Nocturia, Urinary Incontinence, Urinary Frequency, Urinary Hesitance, Urinary Urgency, Voiding Freq/Small Amts, Freq UTI, Hx Renal/Bladder Calculi, Hx /Renal Surgery, Bladder Distension, Other - Musculoskeletal Musculoskeletal: absent: As Per HPI, Abnormal Gait, Arthralgias, Atrophy, Back Pain, Deformity, Joint Swelling, Limited Range of Motion, Loss of Height, Muscle Cramps, Muscle Weakness, Myalgias, Neck Pain, Numbness, Radiating Pain into Limb, Stiffness, Tingling, Other - Integumentary Integumentary: absent: As Per HPI, Acne, Alopecia, Bleeding Lesions, Change in Hair, Change in Nails, Change in Pigmentation, Changing Lesions, Dry Skin, Erythema, Furuncle, Hirsutism, Lesions, New Lesions, Non-Healing Lesions, Photosensitivity, Pruritus, Rash, Skin Pain, Skin Ulcer, Sores, Striae, Swelling, Unusual Bruising, Wounds, Jaundice, Other - Neurological Neurological: absent: As Per HPI, Abnormal Gait, Abnormal Hearing, Abnormal Movements, Abnormal Speech, Behavioral Changes, Burning Sensations, Confusion, Convulsions, Disequilibrium, Dizziness, Numbness, Focal Weakness, Frequent Falls, Headaches, Lack of Coordination, Loss of Vision, Memory Loss, Paresthesias, Radicular Pain, Restless Legs, Sensory Deficit, Syncope, Tingling, Tremor, Vertigo, Weakness, Other Visual Disturbances, Other - Psychiatric Psychiatric: absent: As Per HPI, Abnormal Sleep Pattern, Anhedonia, Anxiety, Auditory Hallucinations, Behavioral Changes, Change in Appetite, Change in Libido, Confusion, Depression, Difficulty Concentrating, Hallucinations, H omicidal Ideation, Hopelessness, Irritability, Memory Loss, Mood Swings, Panic Attacks, Paranoia, Suicidal Ideation, Visual Hallucinations, Tactile Hallucinations, Other - Endocrine Endocrine: absent: As Per HPI, Change in Body Appearance, Change in Libido, Cold Intolorance, Deepening of Voice, Excessive Sweating, Fatigue, Flushing, Heat Intolorance, Increase in Ring/Shoe/Hat Size, Palpitations, Polydipsia, Polyphagia, Polyuria, Other - Hematologic/Lymphatic Hematologic: absent: As Per HPI, Easy Bleeding, Easy Bruising, Lymphadenopathy, Other Past Patient History - Past Medical History & Family History Past Medical History?: Yes - Past Social History Smoking Status: Never Smoked - CARDIAC Hx Cardiac Disorders: Yes Hx Hypertension: Yes - PULMONARY Hx Respiratory Disorders: No - NEUROLOGICAL Hx Neurological Disorder: No - HEENT Hx HEENT Problems: No - RENAL Hx Chronic Kidney Disease: No - ENDOCRINE/METABOLIC Hx Endocrine Disorders: No - HEMATOLOGICAL/ONCOLOGICAL Hx Cancer: No - INTEGUMENTARY Hx Dermatological Problems: No - MUSCULOSKELETAL/RHEUMATOLOGICAL Hx Musculoskeletal Disorders: No Hx Falls: No - GENITOURINARY/GYNECOLOGICAL Hx Genitourinary Disorders: No - PSYCHIATRIC Hx Psychophysiologic Disorder: No Hx Substance Use: No - SURGICAL HISTORY Hx Mastectomy: No - ANESTHESIA Hx Anesthesia: Yes Hx Anesthesia Reactions: No Hx Malignant Hyperthermia: No Meds Allergies/Adverse Reactions: Allergies Allergy/AdvReac Type Severity Reaction Status Date / Time No Known Allergies Allergy Verified 10/23/18 09:05 - Medications Medications: Current Medications Acetaminophen (Tylenol 325mg Tab) 650 mg PO Q8H PRN PRN Reason: Pain, Mild (1-3) Last Admin: 11/15/18 09:39 Dose: 650 mg Aspirin (Aspirin Chewable) 81 mg PO DAILY [facility] Last Admin: 11/16/18 10:52 Dose: 81 mg Colchicine (Colocrys) 0.6 mg PO DAILY [facility] Last Admin: 11/16/18 10:53 Dose: 0.6 mg Digoxin (Lanoxin) 0.25 mg PO DAILY@1800 [facility] Last Admin: 11/16/18 17:30 Dose: 0.25 mg Diltiazem HCl (Cardizem) 30 mg PO TID [facility] Last Admin: 11/16/18 17:30 Dose: 30 mg Enoxaparin Sodium (Lovenox) 40 mg SC DAILY [facility] Last Admin: 11/16/18 10:53 Dose: Not Given Methylprednisolone (Solu-Medrol) 40 mg IVP Q12 [facility] Stop: 11/18/18 22:01 Last Admin: 11/16/18 10:52 Dose: 40 mg Metoprolol Tartrate (Lopressor) 25 mg PO BID [facility] Last Admin: 11/16/18 17:31 Dose: Not Given Multivitamins (Hexavitamin) 1 tab PO DAILY [facility] Last Admin: 11/16/18 10:52 Dose: 1 tab Physical Exam - Constitutional Appears: Chronically Ill - Head Exam Head Exam: NORMAL INSPECTION - Eye Exam Eye Exam: Normal appearance - ENT Exam ENT Exam: Mucous Membranes Moist - Neck Exam Neck exam: Positive for: Normal Inspection - Respiratory Exam Respiratory Exam: Decreased Breath Sounds - Cardiovascular Exam Cardiovascular Exam: Irregular Rhythm - GI/Abdominal Exam GI & Abdominal Exam: Normal Bowel Sounds - Rectal Exam Rectal Exam: Deferred - Extremities Exam Extremities exam: Negative for: pedal edema - Back Exam Back exam: NORMAL INSPECTION - Neurological Exam Neurological exam: Alert, Oriented x3 - Psychiatric Exam Psychiatric exam: Normal Affect - Skin Skin Exam: Normal Color Results - Vital Signs Recent Vital Signs: Last Vital Signs Temp 97.5 F L 11/16/18 15:00 Pulse 70 11/16/18 15:00 Resp 20 11/16/18 15:00 BP 107/57 L 11/16/18 17:31 Pulse Ox 95 11/16/18 15:00 - Labs Result Diagrams: 11/13/18 07:16 11/13/18 07:16 Labs: Laboratory Results - last 24 hr 11/10/18 11/15/18 11:24 15:52 Vitamin A 8 L Myco Comp PCR Spec Srce TNP M.tuberculosis DNA (PCR) TNP - EKG Data EKG Interpreted by: Myself Assessment & Plan (1) Atrial fibrillation Assessment and Plan: rate controlled at present. ChadVasc score is low therefore can withhold anticoagulation. Status: Acute (2) Pericardial effusion Assessment and Plan: s/p pericardial window. Awaiting fluid cytology pericardial fluid. 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 Does not appear to have myocardial injury. on steroids. Status: Suspected
--- NOTE | 2018-11-16 20:34 | CP.PCM.PN ---
Subjective - Date & Time of Evaluation Date of Evaluation: 11/16/18 Time of Evaluation: 18:00 - Subjective Subjective: Feeling better, eating more. Objective - Vital Signs/Intake and Output Vital Signs (last 24 hours): Temp Pulse Resp BP Pulse Ox 97.5 F L 70 20 107/57 L 95 11/16/18 15:00 11/16/18 15:00 11/16/18 15:00 11/16/18 17:31 11/16/18 15:00 Intake and Output: 11/16/18 11/17/18 18:59 06:59 Intake Total 200 Balance 200 - Medications Medications: Current Medications Acetaminophen (Tylenol 325mg Tab) 650 mg PO Q8H PRN PRN Reason: Pain, Mild (1-3) Last Admin: 11/15/18 09:39 Dose: 650 mg Aspirin (Aspirin Chewable) 81 mg PO DAILY [facility] Last Admin: 11/16/18 10:52 Dose: 81 mg Colchicine (Colocrys) 0.6 mg PO DAILY [facility] Last Admin: 11/16/18 10:53 Dose: 0.6 mg Digoxin (Lanoxin) 0.25 mg PO DAILY@1800 [facility] Last Admin: 11/16/18 17:30 Dose: 0.25 mg Diltiazem HCl (Cardizem) 30 mg PO TID [facility] Last Admin: 11/16/18 17:30 Dose: 30 mg Enoxaparin Sodium (Lovenox) 40 mg SC DAILY [facility] Last Admin: 11/16/18 10:53 Dose: Not Given Methylprednisolone (Solu-Medrol) 40 mg IVP Q12 [facility] Stop: 11/18/18 22:01 Last Admin: 11/16/18 10:52 Dose: 40 mg Metoprolol Tartrate (Lopressor) 25 mg PO BID [facility] Last Admin: 11/16/18 17:31 Dose: Not Given Multivitamins (Hexavitamin) 1 tab PO DAILY [facility] Last Admin: 11/16/18 10:52 Dose: 1 tab - Labs Labs: 11/13/18 07:16 11/13/18 07:16 PT 16.7 SECONDS (9.7-12.2) H 11/05/18 09:04 INR 1.5 11/05/18 09:04 APTT 35 SECONDS (21-34) H 11/05/18 09:04 - Head Exam Head Exam: ATRAUMATIC - Eye Exam Eye Exam: Normal appearance - ENT Exam ENT Exam: Mucous Membranes Dry - Respiratory Exam Respiratory Exam: Decreased Breath Sounds - Cardiovascular Exam Cardiovascular Exam: +S1, +S2 - GI/Abdominal Exam GI & Abdominal Exam: Normal Bowel Sounds - Extremities Exam Extremities Exam: Pedal Edema Assessment and Plan (1) Coagulopathy Assessment & Plan: nutritional, liver disease noted bo deficient factor levels - likely related to decreased synthetic function of liver ?cirrhosis Status: Acute (2) Anemia Assessment & Plan: improved prior iron deficiency; s/p supplementation s/p EGD/colonoscopy Status: Acute (3) Pericardial effusion Assessment & Plan: cytology negative extensive infectious w/u noted Status: Acute
--- NOTE | 2018-11-17 07:36 | CP.PCM.PN ---
Subjective - Date & Time of Evaluation Date of Evaluation: 11/16/18 Time of Evaluation: 20:50 - Subjective Subjective: Patient denies chest pain and dyspnea In good spirits and wants to go home Dr. Ward second opinion consult appreciated Will hold off Anticoagulation for a month but will continue ASA 81 daily Objective - Vital Signs/Intake and Output Vital Signs (last 24 hours): Temp Pulse Resp BP Pulse Ox 97.6 F 73 20 133/68 100 11/16/18 23:00 11/16/18 23:00 11/16/18 23:00 11/16/18 23:00 11/16/18 23:00 Intake and Output: 11/17/18 11/17/18 06:59 18:59 Intake Total 250 Balance 250 - Medications Medications: Current Medications Acetaminophen (Tylenol 325mg Tab) 650 mg PO Q8H PRN PRN Reason: Pain, Mild (1-3) Last Admin: 11/15/18 09:39 Dose: 650 mg Aspirin (Aspirin Chewable) 81 mg PO DAILY [facility] Last Admin: 11/16/18 10:52 Dose: 81 mg Colchicine (Colocrys) 0.6 mg PO DAILY [facility] Last Admin: 11/16/18 10:53 Dose: 0.6 mg Digoxin (Lanoxin) 0.25 mg PO DAILY@1800 [facility] Last Admin: 11/16/18 17:30 Dose: 0.25 mg Diltiazem HCl (Cardizem) 30 mg PO TID [facility] Last Admin: 11/16/18 17:30 Dose: 30 mg Enoxaparin Sodium (Lovenox) 40 mg SC DAILY [facility] Last Admin: 11/16/18 10:53 Dose: Not Given Methylprednisolone (Solu-Medrol) 40 mg IVP Q12 [facility] Stop: 11/18/18 22:01 Last Admin: 11/16/18 22:14 Dose: 40 mg Metoprolol Tartrate (Lopressor) 25 mg PO BID [facility] Last Admin: 11/16/18 17:31 Dose: Not Given Multivitamins (Hexavitamin) 1 tab PO DAILY [facility] Last Admin: 11/16/18 10:52 Dose: 1 tab - Labs Labs: 11/13/18 07:16 11/13/18 07:16 PT 16.7 SECONDS (9.7-12.2) H 11/05/18 09:04 INR 1.5 11/05/18 09:04 APTT 35 SECONDS (21-34) H 11/05/18 09:04
--- NOTE | 2018-11-17 08:25 | CP.PCM.PN ---
Subjective - Date & Time of Evaluation Date of Evaluation: 11/17/18 Time of Evaluation: 08:24 - Subjective Subjective: Patient is morning feeling well. She has no distress. No chest pain no shortness of breath noted. She was able to ambulate Vital signs are stable left lower lung no rales noted Regular heart sounds noted Abdomen soft nontender no pedal edema Yesterday chest x-ray mild pleural effusion still present. Currently patient is on steroid. We will continue the current treatment. As an outpatient she may need prednisone for a few days outpatient follow-up may be necessary will follow the patient Objective - Vital Signs/Intake and Output Vital Signs (last 24 hours): Temp Pulse Resp BP Pulse Ox 97.5 F L 66 20 158/75 H 95 11/17/18 07:35 11/17/18 07:35 11/17/18 07:35 11/17/18 07:35 11/17/18 07:35 Intake and Output: 11/17/18 11/17/18 06:59 18:59 Intake Total 250 Balance 250 - Medications Medications: Current Medications Acetaminophen (Tylenol 325mg Tab) 650 mg PO Q8H PRN PRN Reason: Pain, Mild (1-3) Last Admin: 11/15/18 09:39 Dose: 650 mg Aspirin (Aspirin Chewable) 81 mg PO DAILY [facility] Last Admin: 11/16/18 10:52 Dose: 81 mg Colchicine (Colocrys) 0.6 mg PO DAILY [facility] Last Admin: 11/16/18 10:53 Dose: 0.6 mg Digoxin (Lanoxin) 0.25 mg PO DAILY@1800 [facility] Last Admin: 11/16/18 17:30 Dose: 0.25 mg Diltiazem HCl (Cardizem) 30 mg PO TID [facility] Last Admin: 11/16/18 17:30 Dose: 30 mg Enoxaparin Sodium (Lovenox) 40 mg SC DAILY [facility] Last Admin: 11/16/18 10:53 Dose: Not Given Methylprednisolone (Solu-Medrol) 40 mg IVP Q12 [facility] Stop: 11/18/18 22:01 Last Admin: 11/16/18 22:14 Dose: 40 mg Metoprolol Tartrate (Lopressor) 25 mg PO BID [facility] Last Admin: 11/16/18 17:31 Dose: Not Given Multivitamins (Hexavitamin) 1 tab PO DAILY [facility] Last Admin: 11/16/18 10:52 Dose: 1 tab - Labs Labs: 11/13/18 07:16 11/13/18 07:16 PT 16.7 SECONDS (9.7-12.2) H 11/05/18 09:04 INR 1.5 11/05/18 09:04 APTT 35 SECONDS (21-34) H 11/05/18 09:04
[2018-11-17 08:50] LABS: BASO % 0.1 % (0.0-2.0); HEMOGLOBIN 11.9 g/dL (11.0-16.0); LYMPH # 1.5 K/uL (1.0-4.3); LYMPH % 14.9 % (20.0-40.0); MEAN CELL VOLUME 86.4 fL (81.0-99.0); MEAN CORPUSCULAR HEMOGLOBIN 27.4 pg (27.0-31.0); MEAN CORPUSCULAR HGB CONC 31.7 g/dL (33.0-37.0); MEAN PLATELET VOLUME 7.8 fL (7.2-11.7); MONO # 0.3 K/uL (0.0-0.8); MONO % 3.2 % (0.0-10.0); NEUT % 81.8 % (50.0-75.0); NRBC % 0.1 % (0.0-2.0); RBC 4.35 Mil/uL (3.80-5.20); RED CELL DISTRIBUTION WIDTH 23.5 % (11.5-14.5); WHITE BLOOD COUNT 9.8 K/uL (4.8-10.8)
[2018-11-17 08:58] LABS: BLOOD UREA NITROGEN 10 mg/dL (7-17); CALCIUM 9.2 mg/dl (8.6-10.4); GFR NON-AFRICAN AMERICAN > 60
[2018-11-17] MEDS: Multiple Vitamins Tab PO SCH (10:40)
[2018-11-17] MEDS: MethylPREDNISolone 40 mg Vial IVP SCH ×2 (10:41→21:42)
[2018-11-17] MEDS: Enoxaparin 40 mg Syringe SC SCH (10:41)
[2018-11-17] MEDS: Digoxin 250 mcg (0.25 mg) Tab PO SCH (17:53)
[2018-11-17 17:54] VITALS: PULSE 71
--- NOTE | 2018-11-17 22:33 | CP.PCM.PN ---
Subjective - Date & Time of Evaluation Date of Evaluation: 11/17/18 Time of Evaluation: 18:00 - Subjective Subjective: Improving well. Objective - Vital Signs/Intake and Output Vital Signs (last 24 hours): Temp Pulse Resp BP Pulse Ox 97.8 F 70 20 135/70 96 11/17/18 15:00 11/17/18 15:00 11/17/18 15:00 11/17/18 17:53 11/17/18 15:00 Intake and Output: 11/17/18 11/17/18 11:59 23:59 Intake Total 500 Balance 500 - Medications Medications: Current Medications Acetaminophen (Tylenol 325mg Tab) 650 mg PO Q8H PRN PRN Reason: Pain, Mild (1-3) Last Admin: 11/15/18 09:39 Dose: 650 mg Aspirin (Aspirin Chewable) 81 mg PO DAILY [facility] Last Admin: 11/17/18 10:40 Dose: 81 mg Colchicine (Colocrys) 0.6 mg PO DAILY [facility] Last Admin: 11/17/18 10:41 Dose: 0.6 mg Digoxin (Lanoxin) 0.25 mg PO DAILY@1800 [facility] Last Admin: 11/17/18 17:53 Dose: 0.25 mg Diltiazem HCl (Cardizem) 30 mg PO TID [facility] Last Admin: 11/17/18 17:53 Dose: 30 mg Enoxaparin Sodium (Lovenox) 40 mg SC DAILY [facility] Last Admin: 11/17/18 10:41 Dose: Not Given Methylprednisolone (Solu-Medrol) 40 mg IVP Q12 [facility] Stop: 11/18/18 22:01 Last Admin: 11/17/18 21:42 Dose: 40 mg Metoprolol Tartrate (Lopressor) 25 mg PO BID [facility] Last Admin: 11/17/18 17:53 Dose: 25 mg Multivitamins (Hexavitamin) 1 tab PO DAILY [facility] Last Admin: 11/17/18 10:40 Dose: 1 tab - Labs Labs: 11/17/18 08:34 11/17/18 08:34 PT 16.7 SECONDS (9.7-12.2) H 11/05/18 09:04 INR 1.5 11/05/18 09:04 APTT 35 SECONDS (21-34) H 11/05/18 09:04 - Constitutional Appears: Chronically Ill - Head Exam Head Exam: ATRAUMATIC, NORMAL INSPECTION - Eye Exam Eye Exam: Normal appearance - ENT Exam ENT Exam: Mucous Membranes Moist - Neck Exam Neck Exam: Full ROM - Respiratory Exam Respiratory Exam: Decreased Breath Sounds - Cardiovascular Exam Cardiovascular Exam: Irregular Rhythm, +S1, +S2 - GI/Abdominal Exam GI & Abdominal Exam: Normal Bowel Sounds - Extremities Exam Extremities Exam: Normal Inspection - Neurological Exam Neurological Exam: Alert, Awake, CN II-XII Intact, Normal Gait, Oriented x3 - Psychiatric Exam Psychiatric exam: Normal Affect - Skin Skin Exam: Normal Color Assessment and Plan (1) Rapid atrial fibrillation Status: Acute (2) Symptomatic anemia Status: Acute (3) Atrial fibrillation Status: Acute (4) Hypertensive cardiovascular disease Status: Acute (5) Wide-complex tachycardia Status: Acute (6) Hypertension Status: Chronic (7) Pericardial effusion Status: Acute (8) Cardiac tamponade Status: Acute (9) Pleural effusion Status: Acute (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
--- NOTE | 2018-11-17 23:37 | CP.PCM.PN ---
Subjective - Date & Time of Evaluation Date of Evaluation: 11/17/18 Time of Evaluation: 15:15 - Subjective Subjective: Patient seen and evaluated No cardiac events noted Feeling better Objective - Vital Signs/Intake and Output Vital Signs (last 24 hours): Temp Pulse Resp BP Pulse Ox 97.8 F 70 20 135/70 96 11/17/18 15:00 11/17/18 15:00 11/17/18 15:00 11/17/18 17:53 11/17/18 15:00 Intake and Output: 11/17/18 11/18/18 18:59 06:59 Intake Total 500 Balance 500 - Medications Medications: Current Medications Acetaminophen (Tylenol 325mg Tab) 650 mg PO Q8H PRN PRN Reason: Pain, Mild (1-3) Last Admin: 11/15/18 09:39 Dose: 650 mg Aspirin (Aspirin Chewable) 81 mg PO DAILY [facility] Last Admin: 11/17/18 10:40 Dose: 81 mg Colchicine (Colocrys) 0.6 mg PO DAILY [facility] Last Admin: 11/17/18 10:41 Dose: 0.6 mg Digoxin (Lanoxin) 0.25 mg PO DAILY@1800 [facility] Last Admin: 11/17/18 17:53 Dose: 0.25 mg Diltiazem HCl (Cardizem) 30 mg PO TID [facility] Last Admin: 11/17/18 17:53 Dose: 30 mg Enoxaparin Sodium (Lovenox) 40 mg SC DAILY [facility] Last Admin: 11/17/18 10:41 Dose: Not Given Methylprednisolone (Solu-Medrol) 40 mg IVP Q12 [facility] Stop: 11/18/18 22:01 Last Admin: 11/17/18 21:42 Dose: 40 mg Metoprolol Tartrate (Lopressor) 25 mg PO BID [facility] Last Admin: 11/17/18 17:53 Dose: 25 mg Multivitamins (Hexavitamin) 1 tab PO DAILY [facility] Last Admin: 11/17/18 10:40 Dose: 1 tab - Labs Labs: 11/17/18 08:34 11/17/18 08:34 PT 16.7 SECONDS (9.7-12.2) H 11/05/18 09:04 INR 1.5 11/05/18 09:04 APTT 35 SECONDS (21-34) H 11/05/18 09:04
[2018-11-18 07:58] VITALS: PULSE 70; RESP 18
[2018-11-18 08:13] LABS: BASO % 0.2 % (0.0-2.0); LYMPH # 1.4 K/uL (1.0-4.3); LYMPH % 12.3 % (20.0-40.0); MEAN CORPUSCULAR HEMOGLOBIN 28.3 pg (27.0-31.0); MEAN CORPUSCULAR HGB CONC 32.9 g/dL (33.0-37.0); MEAN PLATELET VOLUME 7.8 fL (7.2-11.7); MONO # 0.5 K/uL (0.0-0.8); MONO % 4.1 % (0.0-10.0); NEUT # 9.2 K/uL (1.8-7.0); NEUT % 83.4 % (50.0-75.0); NRBC % 0.1 % (0.0-2.0); RBC 4.25 Mil/uL (3.80-5.20); RED CELL DISTRIBUTION WIDTH 23.8 % (11.5-14.5)
[2018-11-18 08:20] LABS: INR 1.4; PROTHROMBIN TIME 15.5 SECONDS (9.7-12.2)
--- NOTE | 2018-11-18 08:36 | RAD ---
Date of service: 11/18/2018 HISTORY: f/u pleural effusion COMPARISON: 11/16/2018 TECHNIQUE: Chest PA and lateral views FINDINGS: LUNGS: Current lung volumes less now than before impedes comparison of size of left pleural effusion. However appears less on lateral view now than before Inferred left basal compressive subsegmental atelectasis. PLEURA: Decreasing left pleural effusion per lateral view. No pneumothorax apparent. CARDIOVASCULAR: There is presence of aortic atherosclerotic calcification on x-ray. Mild cardiomegaly-likely similar given less inspiration now no significant appearing pulmonary venous congestion believed present. Dual lead pacemaker device in place-leads appear intact position appears satisfactory. OSSEOUS STRUCTURES: No significant abnormalities. VISUALIZED UPPER ABDOMEN: Normal. OTHER FINDINGS: None. IMPRESSION: . Interval decreased left pleural effusion most evident per lateral view.
[2018-11-18 08:41] LABS: ALB/GLOB RATIO 0.9 (1.0-2.1); ALBUMIN 3.3 g/dL (3.5-5.0); ALT/SGPT 45 U/L (9-52); AST/SGOT 63 U/L (14-36); BILIRUBIN,DIRECT 0.3 mg/dL (0.0-0.4); BLOOD UREA NITROGEN 12 mg/dL (7-17); CALCIUM 9.4 mg/dl (8.6-10.4); GFR NON-AFRICAN AMERICAN > 60
--- NOTE | 2018-11-18 09:32 | CP.PCM.PN ---
Subjective - Date & Time of Evaluation Date of Evaluation: 11/18/18 Time of Evaluation: 09:30 - Subjective Subjective: Patient this morning feeling well. No cough noted, she has no chest pain, she is much comfortable. The heart rate is controlled well. Elevation of the blood pressure noted. Clinical examination is unremarkable. Chest bilateral good air entry. Denies any wheezing. No wheezing no rales noted now on clinical examination. No pedal edema Labs reviewed Chest x-ray showing evidence of very mild left lower lung pleural effusion, much improved than in the past. 62-year-old female admitted to the hospital with the pericardial effusion and pleural effusion status post window as well as thoracentesis. 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 With the steroid patient is showing marked improvement. We will continue the steroid tapering dose. We will start the patient on 60 mg prednisone, tapering down over the course of 2 weeks. In my opinion patient is clinically stable. Anticoagulation as per cardiology. Objective - Vital Signs/Intake and Output Vital Signs (last 24 hours): Temp Pulse Resp BP Pulse Ox 97.7 F 70 18 160/84 H 94 L 11/18/18 07:57 11/18/18 07:57 11/18/18 07:57 11/18/18 07:57 11/18/18 07:57 Intake and Output: 11/18/18 11/18/18 06:59 18:59 Intake Total 500 Balance 500 - Medications Medications: Current Medications Acetaminophen (Tylenol 325mg Tab) 650 mg PO Q8H PRN PRN Reason: Pain, Mild (1-3) Last Admin: 11/15/18 09:39 Dose: 650 mg Aspirin (Aspirin Chewable) 81 mg PO DAILY [facility] Last Admin: 11/17/18 10:40 Dose: 81 mg Colchicine (Colocrys) 0.6 mg PO DAILY [facility] Last Admin: 11/17/18 10:41 Dose: 0.6 mg Digoxin (Lanoxin) 0.25 mg PO DAILY@1800 [facility] Last Admin: 11/17/18 17:53 Dose: 0.25 mg Diltiazem HCl (Cardizem) 30 mg PO TID [facility] Last Admin: 11/17/18 17:53 Dose: 30 mg Enoxaparin Sodium (Lovenox) 40 mg SC DAILY [facility] Last Admin: 11/17/18 10:41 Dose: Not Given Methylprednisolone (Solu-Medrol) 40 mg IVP Q12 [facility] Stop: 11/18/18 22:01 Last Admin: 11/17/18 21:42 Dose: 40 mg Metoprolol Tartrate (Lopressor) 25 mg PO BID [facility] Last Admin: 11/17/18 17:53 Dose: 25 mg Multivitamins (Hexavitamin) 1 tab PO DAILY [facility] Last Admin: 11/17/18 10:40 Dose: 1 tab - Labs Labs: 11/18/18 08:07 11/18/18 08:07 PT 15.5 SECONDS (9.7-12.2) H 11/18/18 08:07 INR 1.4 11/18/18 08:07 APTT 33 SECONDS (21-34) 11/18/18 08:07
[2018-11-18] MEDS: Multiple Vitamins Tab PO SCH (10:47)
[2018-11-18] MEDS: MethylPREDNISolone 40 mg Vial IVP SCH (10:48)
[2018-11-18] MEDS: Enoxaparin 40 mg Syringe SC SCH (10:48)
[2018-11-18 15:07] VITALS: BP 121/69; TEMP 98.2; O2SAT 97
--- NOTE | 2018-11-18 18:21 | CP.PCM.DIS ---
Provider - Provider Date of Admission: 10/23/18 18:47 Attending physician: Kenny Wheeler MD Consults: 10/23/18 13:34 Cardiology Consult Routine Comment: Consulting Provider: Musa Sultana Consulting Physician: Musa Sultana Reason for Consult: rap.resp. a.fib 10/23/18 13:36 Gastroenterology Consult Routine Comment: Consulting Provider: Rigo Mcrae Consulting Physician: Rigo Mcrae Reason for Consult: anemia g.i bleed 10/25/18 16:24 Physician Consult Stat Comment: Consulting Provider: Jimenez Shea Consulting Physician: Jimenez Shea Reason for Consult: pericardial effusion, ? tamponade 10/25/18 17:38 Infectious Disease Consult Routine Comment: Consulting Provider: Afshan Perez Consulting Physician: Afshan Perez Reason for Consult: pericarditis of unnown etiology 10/25/18 20:20 Hematology Oncology Consult Routine Comment: Consulting Provider: Garcia Burgess Consulting Physician: Garcia Burgess Reason for Consult: Hemorrhagic percaridial effusion 11/01/18 16:26 Sorting Machine Operator [Case Management Referral] Routine Comment: Physician Instructions: eval for [facility] Reason For Exam: Reason for Referral: Discharge Planning 11/05/18 08:46 Critical Care Consult Routine Comment: Consulting Provider: Gayle Coats Consulting Physician: Gayle Coats Reason for Consult: A-fib w/ RVR, HYpotension 11/05/18 11:56 Pulmonology Consult Stat Comment: Consulting Provider: Marlene Alfaro Consulting Physician: Marlene Alfaro Reason for Consult: pleural effusion 11/05/18 12:15 Physician Consult Routine Comment: STAT Consulting Provider: Jimenez Shea Consulting Physician: Jimenez Shea Reason for Consult: pleural effusion 11/06/18 19:35 Cardiology Consult Routine Comment: regarding PPM Consulting Provider: Be Ravi Consulting Physician: Be Ravi Reason for Consult: regarding PPM 11/13/18 16:21 Cardiology Consult Routine Comment: Please notify attending Consulting Provider: America Ward Consulting Physician: America Ward Reason for Consult: 2nd opinion, pleural and pericardial effusion Time Spent in preparation of Discharge (in minutes): 30 Diagnosis - Discharge Diagnosis (1) Rapid atrial fibrillation Status: Acute (2) Symptomatic anemia Status: Acute (3) Atrial fibrillation Status: Acute (4) Hypertensive cardiovascular disease Status: Acute (5) Wide-complex tachycardia Status: Acute (6) Hypertension Status: Chronic (7) Pericardial effusion Status: Acute (8) Cardiac tamponade Status: Acute (9) Pleural effusion Status: Acute (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 11/10/18 21:13 Blood-Thru Central Line Blood Culture - Final NO GROWTH AFTER 5 DAYS 11/10/18 21:13 Blood-Thru Central Line Gram Stain - Final TEST NOT PERFORMED 11/10/18 20:17 Blood-Thru Central Line Blood Culture - Final NO GROWTH AFTER 5 DAYS 11/10/18 20:17 Blood-Thru Central Line Gram Stain - Final TEST NOT PERFORMED 11/08/18 19:12 Blood-Venous Blood Culture - Final NO GROWTH AFTER 5 DAYS 11/08/18 19:12 Blood-Venous Gram Stain - Final TEST NOT PERFORMED 11/08/18 17:40 Blood-Venous Blood Culture - Final NO GROWTH AFTER 5 DAYS 11/08/18 17:40 Blood-Venous Gram Stain - Final TEST NOT PERFORMED 11/10/18 17:00 Other: Please Indicate Mycobacterial Culture - Preliminary 11/11/18 09:17 Other: Please Indicate Mycobacterial Culture - Preliminary 11/06/18 21:07 Blood-Venous Blood Culture - Final NO GROWTH AFTER 5 DAYS 11/06/18 21:07 Blood-Venous Gram Stain - Final TEST NOT PERFORMED 11/06/18 20:15 Blood-Venous Blood Culture - Final NO GROWTH AFTER 5 DAYS 11/06/18 20:15 Blood-Venous Gram Stain - Final TEST NOT PERFORMED 11/05/18 22:12 Blood-Venous Blood Culture - Final NO GROWTH AFTER 5 DAYS 11/05/18 22:12 Blood-Venous Gram Stain - Final TEST NOT PERFORMED 11/05/18 22:12 Blood-Venous Blood Culture - Final NO GROWTH AFTER 5 DAYS 11/05/18 22:12 Blood-Venous Gram Stain - Final TEST NOT PERFORMED 11/08/18 12:55 Naris MRSA Culture - Final MRSA NOT DETECTED 11/06/18 21:07 Urine,Clean Catch Urine Culture - Final <10,000 CFU/ML. MULTIPLE SPECIES. PROBABLE CONTAMINATION. 11/05/18 14:13 Nose MRSA Culture (Admit) - Final MRSA NOT DETECTED 11/03/18 12:49 Nose MRSA Culture - Final MRSA NOT DETECTED 10/25/18 15:00 Blood Blood Culture - Final NO GROWTH AFTER 5 DAYS 10/25/18 15:00 Blood Gram Stain - Final TEST NOT PERFORMED 10/25/18 14:30 Blood Blood Culture - Final NO GROWTH AFTER 5 DAYS 10/25/18 14:30 Blood Gram Stain - Final TEST NOT PERFORMED 10/25/18 19:41 Pericardial Fluid Gram Stain - Final 10/25/18 19:41 Pericardial Fluid Body Fluid Culture - Final No growth. 10/25/18 19:41 Pericardial Fluid Anaerobic Culture - Final NO ANAEROBES ISOLATED. 10/26/18 06:14 Urine Random Urine Culture - Final No Growth (<1,000 CFU/ML) 10/24/18 14:44 Naris MRSA Culture (Admit) - Final MRSA NOT DETECTED Most Recent Lab Values WBC 11.0 K/uL (4.8-10.8) H 11/18/18 08:07 RBC 4.25 Mil/uL (3.80-5.20) 11/18/18 08:07 Hgb 12.0 g/dL (11.0-16.0) 11/18/18 08:07 Hct 36.5 % (34.0-47.0) 11/18/18 08:07 MCV 86.0 fL (81.0-99.0) 11/18/18 08:07 MCH 28.3 pg (27.0-31.0) 11/18/18 08:07 MCHC 32.9 g/dL (33.0-37.0) L 11/18/18 08:07 RDW 23.8 % (11.5-14.5) H 11/18/18 08:07 Plt Count 438 K/uL (130-400) H 11/18/18 08:07 MPV 7.8 fL (7.2-11.7) 11/18/18 08:07 Neut % (Auto) 83.4 % (50.0-75.0) H 11/18/18 08:07 Lymph % (Auto) 12.3 % (20.0-40.0) L 11/18/18 08:07 [place] % (Auto) 4.1 % (0.0-10.0) 11/18/18 08:07 Eos % (Auto) 0.0 % (0.0-4.0) 11/18/18 08:07 Baso % (Auto) 0.2 % (0.0-2.0) 11/18/18 08:07 Neut # (Auto) 9.2 K/uL (1.8-7.0) H 11/18/18 08:07 Lymph # (Auto) 1.4 K/uL (1.0-4.3) 11/18/18 08:07 [place] # (Auto) 0.5 K/uL (0.0-0.8) 11/18/18 08:07 Eos # (Auto) 0.0 K/uL (0.0-0.7) 11/18/18 08:07 Baso # (Auto) 0.0 K/uL (0.0-0.2) 11/18/18 08:07 Neutrophils % (Manual) 67 % (50-75) 10/27/18 05:52 Band Neutrophils % 1 % (0-2) 10/25/18 06:15 Lymphocytes % (Manual) 13 % (20-40) L 10/27/18 05:52 Monocytes % (Manual) 19 % (0-10) H 10/27/18 05:52 Eosinophils % (Manual) 1 % (0-4) 10/27/18 05:52 Differential Comment 10/25/18 06:15 Hypersegmented Polys Present 10/25/18 06:15 Smudge Cells Present 10/25/18 06:15 Platelet Estimate Normal (NORMAL) 10/27/18 05:52 Large Platelets Present 10/25/18 06:15 Polychromasia Slight 10/25/18 06:15 Hypochromasia (manual) Slight 10/27/18 05:52 Poikilocytosis (manual Slight 10/25/18 06:15 Anisocytosis (manual) Slight 10/27/18 05:52 Microcytosis (manual) Slight 10/25/18 06:15 Spherocytes Slight 10/25/18 06:15 Tear Drop Cells Slight 10/25/18 06:15 Ovalocytes Slight 10/25/18 06:15 Skye Cells Slight 10/25/18 06:15 ESR 70 mm/hr (0-20) H 11/10/18 07:35 Retic Count 4.3 % (0.5-1.5) H 10/26/18 05:14 PT 15.5 SECONDS (9.7-12.2) H 11/18/18 08:07 INR 1.4 11/18/18 08:07 APTT 33 SECONDS (21-34) 11/18/18 08:07 Fibrinogen 396 mg/dL (200-400) 11/05/18 09:04 D-Dimer, Quantitative 1687 ng/mlDDU (0-243) H 11/05/18 09:04 Plasminogen Inhib-1 Act 61 ng/mL (4-43) H 11/05/18 11:37 Plasminogen Activity 71 % (65-176) 11/05/18 11:37 Lupus Anticoagulant see note 11/05/18 11:37 LA PTT Screen 165 sec (<=40) H 11/05/18 11:37 dRVVT Confirm Interp Negative (Negative) 11/05/18 11:37 dRVVT Mixing Study 54 sec (<=45) H 11/05/18 11:37 LA dRVVT Mix Ratio TEST NOT PERFORMED 11/05/18 11:37 dRVVT Mix Interpret Not indicated 11/05/18 11:37 Hexagonal Phase Confirm Negative (Negative) 11/05/18 11:37 Plt Function Assay 260 K/uL 11/05/18 09:04 Protein C Antigen 29 % (70-140) L 11/05/18 11:37 Protein C Activity 25 % (70-180) L 11/05/18 11:37 APC Resistance 4.8 ratio (>=2.1) 11/05/18 11:37 Protein S Activity 70 % (60-140) 11/05/18 11:37 Protein S Antigen 74 % normal (70-140) 11/05/18 11:37 Antithrombin III Activ 48 % activity (80-120) L 11/05/18 11:37 Factor II Activity 55 % (70-150) L 11/05/18 11:37 Factor V see note 11/05/18 11:37 Factor V Activity 51 % (65-150) L 11/05/18 11:37 Factor VII 42 % (60-150) L 11/05/18 11:37 Factor VIII Activity 173 % normal (50-180) 11/05/18 11:37 Factor VIII ([place]) TNP 11/05/18 11:37 Factor IX Activity 84 % (60-160) 11/05/18 11:37 Factor X 53 % (70-150) L 11/05/18 11:37 Factor X Chromogenic 47 % activity (73-158) L 11/05/18 11:37 Factor XI 30 % (65-150) L 11/05/18 11:37 Factor XII Activity 41 % (50-150) L 11/05/18 11:37 Factor XIII 57 % activity (57-192) 11/05/18 11:37 Fact VII Inhib Comment Negative (NEGATIVE) 11/05/18 11:37 Sodium 138 mmol/L (132-148) 11/18/18 08:07 Potassium 3.6 mmol/L (3.6-5.2) 11/18/18 08:07 Chloride 100 mmol/L (98-107) 11/18/18 08:07 Carbon Dioxide 33 mmol/L (22-30) H 11/18/18 08:07 Anion Gap 9 (10-20) L 11/18/18 08:07 BUN 12 mg/dL (7-17) 11/18/18 08:07 Creatinine 0.5 mg/dL (0.7-1.2) L 11/18/18 08:07 Est GFR ( Amer) > 60 11/18/18 08:07 Est GFR (Non-Af Amer) > 60 11/18/18 08:07 Random Glucose 144 mg/dL (65-105) H 11/18/18 08:07 Lactic Acid 1.6 mmol/L (0.7-2.1) 10/23/18 09:31 Calcium 9.4 mg/dl (8.6-10.4) 11/18/18 08:07 Phosphorus 3.0 mg/dL (2.5-4.5) 11/08/18 05:30 Magnesium 1.6 mg/dL (1.6-2.3) 11/08/18 05:30 Iron 23 ug/dL (37-170) L 11/06/18 05:54 TIBC 279 ug/dL (250-450) 11/06/18 05:54 % Saturation 8 (20-55) L 11/06/18 05:54 Ferritin 319.0 ng/mL 11/06/18 05:54 Total Bilirubin 0.4 mg/dL (0.2-1.3) 11/18/18 08:07 Direct Bilirubin 0.3 mg/dL (0.0-0.4) 11/18/18 08:07 AST 63 U/L (14-36) H D 11/18/18 08:07 ALT 45 U/L (9-52) 11/18/18 08:07 Alkaline Phosphatase 188 U/L (38-126) H D 11/18/18 08:07 Total Creatine Kinase 25 U/L (30-135) L 11/05/18 08:49 CK-MB (Mass) 0.50 ng/mL (0.0-3.38) 11/05/18 08:49 Troponin I < 0.0120 ng/mL (0.00-0.120) 11/05/18 08:49 C-Reactive Protein 67.50 mg/L (0.0-9.9) H 11/10/18 07:35 Total Protein 7.0 g/dL (6.3-8.3) 11/18/18 08:07 Albumin 3.3 g/dL (3.5-5.0) L D 11/18/18 08:07 Globulin 3.7 gm/dL (2.2-3.9) 11/18/18 08:07 Albumin/Globulin Ratio 0.9 (1.0-2.1) L 11/18/18 08:07 Ceruloplasmin 34 mg/dL (18-53) 11/11/18 07:25 Angiotensin Convert Enz 55 U/L (9-67) 11/11/18 07:25 Alpha Fetoprotein 3.6 ng/mL (0.0-7.5) 11/10/18 07:35 CA 19-9 Antigen 23.5 U/mL (0-37) 11/11/18 07:25 Vitamin A 8 mcg/dL (38-98) L 11/10/18 11:24 Vitamin B12 783 pg/mL (239-931) 11/10/18 07:35 Vitamin C 0.2 mg/dL (0.3-2.7) L 11/10/18 11:24 25-OH Vitamin D Total 29.5 NG/ML (30.0-100.0) L 11/10/18 11:24 Alpha-Tocopherol Vit E 8.4 mg/L (5.7-19.9) 11/10/18 11:24 Gamma-Tocopherol Vit E <1.0 mg/L (<=4.3) 11/10/18 11:24 Folate 11.5 ng/mL 10/26/18 05:14 Homocysteine 7.4 umol/L (4.7-12.6) 11/05/18 09:00 Homocysteine Cardiovas 6.9 umol/L ( <10.4) 11/05/18 10:25 Free T4 0.95 ng/dL (0.78-2.19) 10/25/18 08:44 TSH 3rd Generation 1.18 mIU/L (0.46-4.68) 10/27/18 05:52 Urine Color Yellow (YELLOW) 11/11/18 17:47 Urine Clarity Clear (Clear) 11/11/18 17:47 Urine pH 5.0 (5.0-8.0) 11/11/18 17:47 Ur Specific [place] 1.014 (1.003-1.030) 11/11/18 17:47 Urine Protein Negative mg/dL (NEGATIVE) 11/11/18 17:47 Urine Glucose (UA) Normal mg/dL (Normal) 11/11/18 17:47 Urine Ketones Negative mg/dL (NEGATIVE) 11/11/18 17:47 Urine Blood 1+ (NEGATIVE) H 11/11/18 17:47 Urine Nitrate Negative (NEGATIVE) 11/11/18 17:47 Urine Bilirubin Negative (NEGATIVE) 11/11/18 17:47 Urine Urobilinogen Normal mg/dL (0.2-1.0) 11/11/18 17:47 Ur Leukocyte Esterase Neg [place]/uL (Negative) 11/11/18 17:47 Urine WBC (Auto) 1 /hpf (0-5) 11/11/18 17:47 Urine RBC (Auto) 2 /hpf (0-3) 11/11/18 17:47 Ur Squamous Epith Cells 1 /hpf (0-5) 11/11/18 17:47 Urine Bacteria Rare (<OCC) 11/06/18 21:07 Hyaline Casts >20 /lpf (0-2) H 10/25/18 16:41 Fluid Source Pleural 11/05/18 16:48 Fluid Appearance Bloody (CLEAR) 11/05/18 16:48 Fluid WBC 1791.0 /mm3 (0.0-300.0) H 11/05/18 16:48 Fluid RBC 76211.0 /mm3 (0.0-0.0) H 11/05/18 16:48 Fluid Tot Cell Count 100 (0-0) H 11/05/18 16:48 Fluid Neutrophils 57.0 % (0-0) H 11/05/18 16:48 Fluid Lymphocytes 40.0 % (0-0) H 11/05/18 16:48 Fld Monocyte/Macrophag 3 % (0-0) H 11/05/18 16:48 Fluid Comment 11/05/18 16:48 Pleural Total Protein 3.6 g/dL 11/05/18 16:48 Pleural LDH 234 U/L 11/05/18 16:48 Pleural Glucose 115 mg/dL 11/05/18 16:48 Pleural Lipase 74.0 U/L (<10) H 11/05/18 16:48 Pleural Cholesterol 52 mg/dL 11/05/18 16:48 Pleur Adenosine Deamin 9.2 U/L (<9.2) H 11/05/18 16:48 Pleural Fluid CEA <0.5 ng/mL (<10.0) 11/05/18 16:48 Stool Occult Blood Negative (NEGATIVE) 10/30/18 18:31 Vancomycin Trough < 5.0 ug/mL (5.0-10.0) L 11/07/18 21:53 Rheumatoid Factor IgG <5 U (<=6) 10/27/18 07:20 Rheumatoid Factor IgA <5 U (<=6) 10/27/18 07:20 Rheumatoid Factor IgM <5 U (<=6) 10/27/18 07:20 IZABELLA Screen Negative (Negative) 11/06/18 05:54 Anti-Mitochondrial Ab Negative (Negative) 11/06/18 05:54 RPR Nonreactive (NONREACTIVE) 10/29/18 08:37 Lyme IgG 18 kDa Band Reactive H 10/27/18 07:20 Lyme IgG 23 kDa Band Nonreactive 10/27/18 07:20 Lyme IgG 28 kDa Band Nonreactive 10/27/18 07:20 Lyme IgG 30 kDa Band Nonreactive 10/27/18 07:20 Lyme IgG 39 kDa Band Nonreactive 10/27/18 07:20 Lyme IgG 41 kDa Band Reactive H 10/27/18 07:20 Lyme IgG 45 kDa Band Nonreactive 10/27/18 07:20 Lyme IgG 58 kDa Band Nonreactive 10/27/18 07:20 Lyme IgG 66 kDa Band Nonreactive 10/27/18 07:20 Lyme IgG 93 kDa Band Nonreactive 10/27/18 07:20 Lyme IgG W Blot Interp Negative (Negative) 10/27/18 07:20 Lyme IgM 23 kDa Band Nonreactive 10/27/18 07:20 Lyme IgM 39 kDa Band Nonreactive 10/27/18 07:20 Lyme IgM 41 kDa Band Reactive H 10/27/18 07:20 Lyme IgM W Blot Interp Negative (Negative) 10/27/18 07:20 [place] Type A(2) Ab <1:8 10/27/18 07:20 [place] Type A(4) Ab <1:8 10/27/18 07:20 [place] Type A(7) Ab <1:8 10/27/18 07:20 [place] Type A(9) Ab <1:8 10/27/18 07:20 [place] Type A(16) Ab <1:8 10/27/18 07:20 [place] Type B(1) Ab <1:8 10/27/18 07:20 [place] Type B(2) Ab <1:8 10/27/18 07:20 [place] Type B(3) Ab <1:8 10/27/18 07:20 [place] Type B(4) Ab <1:8 10/27/18 07:20 [place] Type B(5) Ab <1:8 10/27/18 07:20 [place] Type B(6) Ab <1:8 10/27/18 07:20 CMV Specimen Source Whole blood 11/09/18 07:54 CMV IgG Ab >10.00 U/mL H 11/09/18 07:54 CMV IgM Ab <30.00 AU/mL 11/09/18 07:54 CMV DNA Qual PCR Not detected 11/09/18 07:54 Echovirus Type 4 Ab <1:8 10/27/18 07:20 Echovirus Type 7 Ab <1:8 10/27/18 07:20 Echovirus Type 9 Ab <1:8 10/27/18 07:20 Echovirus Type 11 Ab <1:8 10/27/18 07:20 Echovirus Type 30 Ab <1:8 10/27/18 07:20 Hepatitis A IgM Ab Negative (NEGATIVE) 11/06/18 05:54 Hep Bs Antigen Negative (NEGATIVE) 11/06/18 05:54 Hep B Core IgM Ab Negative (NEGATIVE) 11/06/18 05:54 Hepatitis C Antibody Negative (NEGATIVE) 11/06/18 05:54 HSV Source Description Serum 10/27/18 07:20 HSV I DNA PCR Not detected (Not Detected) 10/27/18 07:20 HSV II DNA PCR Not detected (Not Detected) 10/27/18 07:20 HIV 1&2 Antibody Screen Negative (NEGATIVE) 10/27/18 07:20 Influenza Typ A,B (EIA) Negative for flu a/b (NEGATIVE) 10/23/18 09:31 Myco Comp PCR Spec Srce TNP 11/15/18 15:52 M.tuberculosis DNA (PCR) TNP 11/15/18 15:52 TB Test (QFT) Nil 0.48 IU/mL 11/09/18 07:54 TB Test Mitogen - Nil 2.87 IU/mL 11/09/18 07:54 TB Test Antigen - Nil 0.01 IU/mL 11/09/18 07:54 TB Test TB - Nil <0.00 IU/mL 11/09/18 07:54 TB Test (QFT) Negative (Negative) 11/09/18 07:54 Blood Type B POSITIVE 10/25/18 17:58 Blood Type Confirm B POSITIVE 10/23/18 14:22 Antibody Screen Negative 10/25/18 17:58 - Hospital Course Hospital Course: 2 y/o lady with hx of pacemaker and a. fib. She presented in ER with generalized weakness, dizziness near syncope, severe migraine, tachyarrhythmia, tachycardia, a. fib with rapid ventricular response and anemia the Hb is about 6 gm less that her baseline (14 to 8) She poorly responded to ivf. She still hemodynamically not stable, symptomatic will transfuse. Case discussed with [employer] consultant. The guiac is positive will follow with GI hold anticoagulation. Hemodynamic instability. During the hospitalization the patient developed pericardial tamponade with sever pleural effusion. She underwent to pericadial window and several pleurocentesis. Patient eventually responded to colchicine. At present comfortable ambulating will follow as OP. Discussed with Dr Sultana will hold anticoagulation for few weeks. Discharge Exam - Head Exam Head Exam: ATRAUMATIC, NORMAL INSPECTION - Eye Exam Eye Exam: Normal appearance - ENT Exam ENT Exam: Normal Exam - Neck Exam Neck exam: Full Rom - Respiratory Exam Respiratory Exam: Clear to PA & Lateral - Cardiovascular Exam Cardiovascular Exam: Irregular Rhythm, +S1, +S2 - GI/Abdominal Exam GI & Abdominal Exam: Normal Bowel Sounds - Extremities Exam Extremities exam: normal inspection - Neurological Exam Neurological exam: Alert, CN II-XII Intact, Normal Gait - Psychiatric Exam Psychiatric exam: Normal Mood - Skin Skin Exam: Intact Discharge Plan - Discharge Medications Prescriptions: Colchicine 0.6 mg PO DAILY 15 Days #15 tablet Walker [Rolling Walker] 1 dev XX PRN #1 dev - Follow Up Plan Condition: STABLE Disposition: HOME/ ROUTINE Instructions: Atrial Fibrillation (DC), Cirrhosis (DC), Pleural Effusion (DC), Colchicine Additional Instructions: Discharge home. Follow up with Dr. Wheeler in his office in 3 days. Please return to ED for any new or worsening symptoms.
== END 2018-11-18 16:45 | disposition home or self-care (01) | DRG 315 ==
LOC: C.ER 08:57 → C.9E 10:27 → C.6T 10:39 → OBSVTOIN 18:47 → C.9I 10-24 10:46 → C.5S 11-03 13:37 → C.9I 11-05 13:42 → C.5S 11-08 12:21
PROVIDERS: ADMIT Internal Medicine; ATTEND Internal Medicine
PROC: 30233N1 Transfusion of Nonautologous Red Blood Cells into Peripheral Vein, Percutaneous Approach (ICD-10-PCS; 2018-10-24)
PROC: 0W9D30Z Drainage of Pericardial Cavity with Drainage Device, Percutaneous Approach (ICD-10-PCS; principal; 2018-10-25 17:30)
PROC: 0DB98ZX Excision of Duodenum, Via Natural or Artificial Opening Endoscopic, Diagnostic (ICD-10-PCS; 2018-11-01)
PROC: 0DB68ZX Excision of Stomach, Via Natural or Artificial Opening Endoscopic, Diagnostic (ICD-10-PCS; 2018-11-01)
PROC: 0DJD8ZZ Inspection of Lower Intestinal Tract, Via Natural or Artificial Opening Endoscopic (ICD-10-PCS; 2018-11-03)
PROC: 0W9B3ZX Drainage of Left Pleural Cavity, Percutaneous Approach, Diagnostic (ICD-10-PCS; 2018-11-05)
PROC: 0W9B3ZX Drainage of Left Pleural Cavity, Percutaneous Approach, Diagnostic (ICD-10-PCS; 2018-11-15)
DX: I31.3 Pericardial effusion (noninflammatory) (principal); K92.2 Gastrointestinal hemorrhage, unspecified; J90 Pleural effusion, not elsewhere classified; I48.92 Unspecified atrial flutter; N17.9 Acute kidney failure, unspecified; I24.1 Dressler's syndrome; I48.0 Paroxysmal atrial fibrillation; I31.4 Cardiac tamponade; K74.60 Unspecified cirrhosis of liver; M62.50 Muscle wasting and atrophy, not elsewhere classified, unspecified site; R55 Syncope and collapse; D50.0 Iron deficiency anemia secondary to blood loss (chronic); M81.0 Age-related osteoporosis without current pathological fracture; E53.8 Deficiency of other specified B group vitamins; I11.9 Hypertensive heart disease without heart failure; I50.9 Heart failure, unspecified; T45.515A Adverse effect of anticoagulants, initial encounter; Z79.01 Long term (current) use of anticoagulants; K64.8 Other hemorrhoids

== ENCOUNTER 2018-11-28 08:34 | Inpatient (IN) | payer BC, MEDICARE, OTHER ==
[2018-11-28 08:35] VITALS: BMI 21.7
--- NOTE | 2018-11-28 09:38 | C.PDOC ---
History Of Present Illness Patient is a 62 year old female with a hx of pleural and pericardial effusion (admitted for 4 weeks at [facility] in October) who presents today because she has been having a fever and tachycardia since Thursday. Tmax was 102.5F on Thursday. Pt did take 1 gram of Tylenol at 5:30 AM. Pt denies chest pain or SOB. Pt did have a flu shot in May. Pt is on baby aspirin (was on Eliquis but had significant bleeding). Pt states that in addition to the fever that she feels weak. PMD: Dr. Wheeler / Time Seen by Provider: 11/28/18 09:22 Chief Complaint (Nursing): Fever History Per: Patient Onset/Duration Of Symptoms: Days Past Medical History Reviewed: Historical Data, Nursing Documentation, Vital Signs Vital Signs: Last Vital Signs Temp 98 F 11/28/18 08:50 Pulse 98 H 11/28/18 08:50 Resp 20 11/28/18 08:50 BP 94/68 L 11/28/18 08:50 Pulse Ox 94 L 11/28/18 08:50 - Medical History PMH: Anemia, Atrial Fibrillation, HTN Other PMH: pleural & pericardial effusion Surgical History: Pacemaker Other Surgeries: hysterectomy, lung lobectomy - [facility] Procedures DRAINAGE OF LEFT PLEURAL CAVITY, PERC APPROACH, DIAGN (10/23/18) DRAINAGE OF PERICARDIAL CAVITY WITH DRAIN DEV, PERC APPROACH (10/23/18) EXCISION OF DUODENUM, ENDO, DIAGN (10/23/18) EXCISION OF STOMACH, ENDO, DIAGN (10/23/18) INSERT PACE. DUAL ULYSSES IN CHEST SUBCU/FASCIA, OPEN (07/27/18) INSERTION OF PACEMAKER LEAD INTO R VENTRICLE, PERC APPROACH (07/27/18) INSERTION OF PACEMAKER LEAD INTO RIGHT ATRIUM, PERC APPROACH (07/27/18) INSPECTION OF LOWER INTESTINAL TRACT, ENDO (10/23/18) TRANSFUSE NONAUT RED BLOOD CELLS IN PERIPH VEIN, PERC (10/23/18) Family History: States: CAD - Social History Hx Tobacco Use: No Hx Alcohol Use: No Hx Substance Use: No - Immunization History Hx Tetanus Toxoid Vaccination: No Hx Influenza Vaccination: Yes (05/2018) Hx Pneumococcal Vaccination: No Review Of Systems Except As Marked, All Systems Reviewed And Found Negative. Constitutional: Positive for: Fever Cardiovascular: Negative for: Chest Pain Respiratory: Negative for: Shortness of Breath Gastrointestinal: Negative for: Nausea Physical Exam - Physical Exam Appears: Well, Non-toxic, No Acute Distress Skin: Normal Color, Warm, Dry Head: Atraumatic Eye(s): bilateral: Normal Inspection, EOMI Ear(s): Bilateral: Normal Nose: Normal Oral Mucosa: Moist Tongue: Normal Appearing Lips: Normal Appearing Throat: Normal Neck: Normal Lymphatic: Deferred Chest: Symmetrical Cardiovascular: Rhythm Regular Respiratory: Normal Breath Sounds, No Accessory Muscle Use, No Rales, No Rhonchi Gastrointestinal/Abdominal: Normal Exam, Bowel Sounds, Soft, No Tenderness Rectal: Deferred Extremity: Normal ROM, No Pedal Edema Extremity: Bilateral: Atraumatic Pulses: Left Radial: Normal, Right Radial: Normal Neurological/Psych: Oriented x3, Normal Motor, Normal Sensation ED Course And Treatment - Laboratory Results Result Diagrams: 11/28/18 09:56 11/28/18 09:56 ECG: Interpreted By Me ECG Rhythm: Sinus Rhythm, L BBB Rate From EC (LBBB is similar to old) O2 Sat by Pulse Oximetry: 94 - Radiology CXR: Viewed By Me (questionable pneumonia left lung base) Medical Decision Making Medical Decision Making: Initial Impression: Fever Differential diagnosis includes but is not limited to: influenza, sepsis, bacteremia, pneumonia Initial Plan: Will activate sepsis order set and try to determine source of fever Progress Note(s): 10:34 AM -- WBC is 28.9. However, the pt told me that she finished a course of antibiotics 2-3 days ago. It's possible that is the source of elevated WBC count. However, lactate also >2. Therefore, code sepsis activated and empiric antibiotics ordered. Pt meets national core measure criteria for severe sepsis but not for septic shock. QSOFA score is 1. 10:55 AM -- Because patient meets national core measure criteria for severe sepsis, will admit. Case d/w Dr. Wheeler and he agrees that pt will need IV antibiotics and recommends admission to his service. Disposition - Disposition Disposition: HOSPITALIZED Disposition Time: 10:55 Condition: SERIOUS - Clinical Impression Clinical Impression: Severe sepsis, CHF (congestive heart failure), Pneumonia Decision To Admit - Pt Status Changed To: Hospital Disposition Of: Inpatient - Admit Certification Admit to Inpatient:: After my assessment, the patient will require hospitalization for at least two midnights. This is because of the severity of symptoms shown, intensity of services needed, and/or the medical risk in this patient being treated as an outpatient. - InPatient: Physician Admission Certification:: Patient has severe sepsis based on national core measure criteria and will need IV antibiotics likely more than 2 days. - . Bed Request Type: Telemetry Admitting Physician: Kenny Wheeelr Patient Diagnosis: Severe sepsis, CHF (congestive heart failure)
[2018-11-28 10:00] LABS: BASO # 0.2 K/uL (0.0-0.2); BASO % 0.8 % (0.0-2.0); LYMPH # 1.5 K/uL (1.0-4.3); LYMPH % 5.3 % (20.0-40.0); MEAN CELL VOLUME 87.5 fL (81.0-99.0); MEAN CORPUSCULAR HEMOGLOBIN 28.1 pg (27.0-31.0); MEAN CORPUSCULAR HGB CONC 32.1 g/dL (33.0-37.0); MEAN PLATELET VOLUME 8.3 fL (7.2-11.7); MONO # 1.9 K/uL (0.0-0.8); MONO % 6.5 % (0.0-10.0); NEUT # 25.3 K/uL (1.8-7.0); NEUT % 87.4 % (50.0-75.0); RBC 5.14 Mil/uL (3.80-5.20)
[2018-11-28 10:01] LABS: HEMOGLOBIN 14.4 g/dL (11.0-16.0); PLATELET COUNT 258 K/uL (130-400); WHITE BLOOD COUNT 28.9 K/uL (4.8-10.8)
[2018-11-28 10:04] LABS: VENOUS BLOOD GAS BASE EXCESS 2.8 mmol/L (0.0-2.0); VENOUS BLOOD GAS PCO2 40 mmHg (40-60); VENOUS BLOOD GAS PO2 33 mm/Hg (30-55); VENOUS BLOOD PH 7.44 (7.32-7.43)
[2018-11-28 10:08] LABS: INR 1.9; PROTHROMBIN TIME 20.9 SECONDS (9.7-12.2)
[2018-11-28] MEDS ORDERED: Vancomycin 1 gm/NS 200 ml 1 GM/200 ML BAG IVPB STA (10:14)
[2018-11-28] MEDS ORDERED: Aztreonam 2 GM in Sodium Chloride 0.9% 100 ML IVPB STA (10:14)
[2018-11-28] MEDS ORDERED: Vancomycin 1 GM 1 GM/250 ML BAG IVPB ONE (10:42)
[2018-11-28 10:43] LABS: B-TYPE NATRIURETIC PEPTIDE 1010 pg/mL (0-900)
[2018-11-28 10:48] LABS: ALBUMIN 3.4 g/dL (3.5-5.0); ALT/SGPT 29 U/L (9-52); AST/SGOT 30 U/L (14-36); BLOOD UREA NITROGEN 17 mg/dL (7-17); GFR NON-AFRICAN AMERICAN > 60
[2018-11-28 10:55] LABS: LYMPHOCYTE 7 % (20-40); MONOCYTE 7 % (0-10); NEUTROPHIL 86 % (50-75); TOTAL CELLS COUNTED 100
[2018-11-28 10:56] LABS: HYPOCHROMIC SLIGHT; PLATELET ESTIMATE NORMAL (NORMAL); POLYCHROMIC SLIGHT
[2018-11-28 10:57] LABS: ANISOCYTOSIS MODERATE
[2018-11-28 11:03] LABS: URINE BILIRUBIN NEGATIVE (NEGATIVE); URINE BLOOD 1+ (NEGATIVE); URINE CLARITY Clear (Clear); URINE COLOR Amber (YELLOW); URINE GLUCOSE (UA) NORMAL (Normal); URINE LEUKOCYTE ESTERASE NEG Leu/uL (Negative); URINE PROTEIN NEGATIVE (NEGATIVE); URINE UROBILINOGEN NORMAL mg/dL (0.2-1.0)
--- NOTE | 2018-11-28 11:28 | RAD ---
Date of service: 11/28/2018 HISTORY: Sepsis Patient COMPARISON: Comparison is made with 11/18/2018 TECHNIQUE: Chest PA and lateral views FINDINGS: LUNGS: Left lower lobe/lung base heterogeneous opacity may represent pneumonia or atelectasis. PLEURA: There are bilateral small pleural effusions. CARDIOVASCULAR: Small atherosclerotic calcification noted at the aortic knob The cardiac silhouette is normal in size. No evidence of significant pulmonary vascular congestion. Left-sided pacemaker is again seen in place. Postsurgical changes noted at the left cardiac border. OSSEOUS STRUCTURES: No significant abnormalities. VISUALIZED UPPER ABDOMEN: Normal. OTHER FINDINGS: None. IMPRESSION: Left lung base heterogeneous opacity may represent atelectasis or pneumonia. Small bilateral pleural effusions.
[2018-11-28] MEDS ORDERED: Naproxen 550 mg Tab PO ONE ×2 (13:46→15:15)
[2018-11-28] MEDS ORDERED: Sodium Chloride 0.9% 500 ML IV SCH (14:00)
[2018-11-28] MEDS: Meropenem 500 MG in Sodium Chloride 0.9% 100 ML IVPB SCH ×2 (15:00→21:37)
--- NOTE | 2018-11-28 15:21 | CT ---
Date of service: 11/28/2018 PROCEDURE: CT Chest without contrast HISTORY: pneumonia, pleural effusion, COMPARISON: Comparison is made to the previous study dated 11/13/2028 TECHNIQUE: Contiguous axial images were obtained through the chest without intravenous contrast enhancement. Sagittal and coronal reconstructions were performed. Radiation dose: Total exam DLP = 190.55 mGy-cm. This CT exam was performed using one or more of the following dose reduction techniques: Automated exposure control, adjustment of the mA and/or kV according to patient size, and/or use of iterative reconstruction technique. FINDINGS: LUNGS: There Is partial atelectasis of the lower lobes larger on the left. Focal airspace consolidation at the left lung base and lower lobe may represent pneumonia or atelectasis. Linear opacity noted at the right lower lobe likely atelectasis or scar tissue. MEDIASTINUM: The thoracic aorta is slightly ectatic. The heart is mildly enlarged. There is a small pericardial effusion noted. There are pacemaker wires seen extending to the heart. Main pulmonary artery unremarkable. No vascular congestion. Mildly enlarged mediastinal lymph nodes are noted. Foci of atherosclerotic calcification noted at the thoracic aorta. PLEURA: There is a small to moderate left and small right pleural effusion. BONES: No fracture. No destructive lesion. UPPER ABDOMEN: Cirrhotic manifestation of the liver are again noted. OTHER FINDINGS: None. IMPRESSION: Airspace consolidation at the left lung base may represent pneumonia or atelectasis. Small to moderate left and small right pleural effusion. Mild cardiomegaly and mild pericardial effusion.
--- NOTE | 2018-11-28 17:57 | CP.PCM.CON ---
History of Present Illness - History of Present Illness History of Present Illness: Chief complaint: Pulmonary evaluation for abnormal x-ray. HPI: 62-year-old female with a history of tachybradycardia syndrome, intermittent, history of pacemaker and B12 deficiency history of anemia in the past osteoporosis and hypertension. Patient was recently hospitalized, at that time she developed a pleural effusion, pericardial effusion, status post window. Patient also had multiple thoracentesis. Postoperatively patient was improving markedly. Patient was given empirically corticosteroid, she was fine until 3 days ago pat mari finished taking the corticosteroid 4 days ago, following that episode patient started having frequent episodes of fever she was taking every 4 times a Tylenol per day. But she started having more fever at nighttime associate with the chills and sweating. Patient did not have any other associated symptoms. Patient did not have any symptoms of cough, chest pain, respiratory distress, abdominal pain, denies any nausea and vomiting. She did not have any diarrhea. No urinary symptoms. Mild occasional headache noted. No neck stiffness. Denies any rash. No recent travel. She was participating physical exercise and treatment, no sick exposure. Past medical history: Atrial flutter, fibrillation, hypertension, osteoporosis Surgical history include a hysterectomy, lung biopsy, pacemaker placement. Patient denies any alcohol or smoking. Patient is working full-time Family history significant for hypertension CVA and thyroid cancer. No drug allergy Review of system: Patient is currently feeling well. She denies any chest pain. Sweating associated with the fever noted, no nausea vomiting. On examination: Vital signs stable now. 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 Mild lactate elevation noted. CAT scan of the chest showing evidence of left lower lung pleural effusion mild, improving markedly compared to previous CAT scan. Mild pericardial effusion Assessment and recommendation: 62-year-old female with a history of hypertension, history of recent pacemaker placement, B12 deficiency and a history of anemia. Osteoporosis hypertension. 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 Responded to corticosteroid. Currently off steroid. Now having fever. Pulmonary point of view patient is stable. Awaiting for blood culture and urine culture in the septic workup. On antibiotic now. Continue the bronchodilators as needed. Patient may benefit by using steroid if the workup for infection is negative. We will follow the patient. Past Patient History - Past Medical History & Family History Past Medical History?: Yes - Past Social History Smoking Status: Never Smoked - CARDIAC Hx Atrial Fibrillation: Yes Hx Hypertension: Yes Hx Pacemaker: Yes - PULMONARY Hx Respiratory Disorders: No - NEUROLOGICAL Hx Neurological Disorder: No - HEENT Hx HEENT Problems: No - RENAL Hx Chronic Kidney Disease: No - ENDOCRINE/METABOLIC Hx Endocrine Disorders: No - HEMATOLOGICAL/ONCOLOGICAL Hx Anemia: Yes - INTEGUMENTARY Hx Dermatological Problems: No - MUSCULOSKELETAL/RHEUMATOLOGICAL Hx Musculoskeletal Disorders: No Hx Falls: No - GENITOURINARY/GYNECOLOGICAL Hx Genitourinary Disorders: No - PSYCHIATRIC Hx Substance Use: No - SURGICAL HISTORY Hx Surgeries: Yes Hx Hysterectomy: Yes Hx Mastectomy: No Other/Comment: Lobectomy, Left - ANESTHESIA Hx Anesthesia: Yes Hx Anesthesia Reactions: No Hx Malignant Hyperthermia: No Meds Allergies/Adverse Reactions: Allergies Allergy/AdvReac Type Severity Reaction Status Date / Time No Known Allergies Allergy Verified 11/28/18 08:54 - Medications Medications: Current Medications Meropenem 500 mg/ Sodium (Chloride) 100 mls @ 100 mls/hr IVPB Q[facility]; Protocol Last Admin: 11/28/18 15:00 Dose: 100 mls/hr Pneumococcal Polyvalent Vaccine (Pneumovax 23 Vaccine) 0.5 ml IM .ONCE ONE Stop: 12/01/18 10:01 Results - Vital Signs Recent Vital Signs: Last Vital Signs Temp 101.2 F H 11/28/18 16:26 Pulse 94 H 11/28/18 16:26 Resp 20 11/28/18 16:26 BP 110/67 11/28/18 16:26 Pulse Ox 96 11/28/18 16:26 - Labs Result Diagrams: 11/28/18 09:56 11/28/18 09:56 Labs: Laboratory Results - last 24 hr 11/28/18 11/28/18 11/28/18 09:38 09:56 09:56 WBC 28.9 H D RBC 5.14 Hgb 14.4 D Hct 44.9 MCV 87.5 MCH 28.1 MCHC 32.1 L RDW 24.0 H Plt Count 258 D MPV 8.3 Neut % (Auto) 87.4 H Lymph % (Auto) 5.3 L [place] % (Auto) 6.5 Eos % (Auto) 0.0 Baso % (Auto) 0.8 Neut # (Auto) 25.3 H Lymph # (Auto) 1.5 [place] # (Auto) 1.9 H Eos # (Auto) 0.0 Baso # (Auto) 0.2 Neutrophils % (Manual) 86 H Lymphocytes % (Manual) 7 L Monocytes % (Manual) 7 Platelet Estimate Normal Polychromasia Slight Hypochromasia (manual) Slight Anisocytosis (manual) Moderate PT 20.9 H INR 1.9 APTT 34 pO2 VBG pH VBG pCO2 VBG HCO3 VBG Total CO2 VBG O2 Sat (Calc) VBG Base Excess VBG Potassium Glucose Lactate Sodium Potassium Chloride Carbon Dioxide Anion Gap BUN Creatinine Est GFR ( Amer) Est GFR (Non-Af Amer) Random Glucose Calcium Phosphorus Magnesium Total Bilirubin AST ALT Alkaline Phosphatase Troponin I NT-Pro-B Natriuret Pep Total Protein Albumin Globulin Albumin/Globulin Ratio Venous Blood Potassium Urine Color Urine Clarity Urine pH Ur Specific [place] Urine Protein Urine Glucose (UA) Urine Ketones Urine Blood Urine Nitrate Urine Bilirubin Urine Urobilinogen Ur Leukocyte Esterase Urine WBC (Auto) Urine RBC (Auto) Hyaline Casts Digoxin Influenza Typ A,B (EIA) Negative for flu a/b 11/28/18 11/28/18 11/28/18 09:56 10:00 10:49 WBC RBC Hgb Hct MCV MCH MCHC RDW Plt Count MPV Neut % (Auto) Lymph % (Auto) [place] % (Auto) Eos % (Auto) Baso % (Auto) Neut # (Auto) Lymph # (Auto) [place] # (Auto) Eos # (Auto) Baso # (Auto) Neutrophils % (Manual) Lymphocytes % (Manual) Monocytes % (Manual) Platelet Estimate Polychromasia Hypochromasia (manual) Anisocytosis (manual) PT INR APTT pO2 33 VBG pH 7.44 H VBG pCO2 40 VBG HCO3 26.3 VBG Total CO2 28.4 H VBG O2 Sat (Calc) 66.0 H VBG Base Excess 2.8 H VBG Potassium 3.7 Glucose 158 H Lactate 2.4 H Sodium 131 L 131.0 L Potassium 4.0 Chloride 94 L 96.0 L Carbon Dioxide 29 Anion Gap 12 BUN 17 Creatinine 0.7 Est GFR ( Amer) > 60 Est GFR (Non-Af Amer) > 60 Random Glucose 161 H Calcium 9.0 Phosphorus 3.1 Magnesium 1.9 Total Bilirubin 1.7 H AST 30 ALT 29 Alkaline Phosphatase 102 Troponin I < 0.0120 NT-Pro-B Natriuret Pep 1010 H Total Protein 6.8 Albumin 3.4 L Globulin 3.3 Albumin/Globulin Ratio 1.0 Venous Blood Potassium 3.7 Urine Color Renée Urine Clarity Clear Urine pH 5.0 Ur Specific [place] 1.020 Urine Protein Negative Urine Glucose (UA) Normal Urine Ketones Negative Urine Blood 1+ H Urine Nitrate Negative Urine Bilirubin Negative Urine Urobilinogen Normal Ur Leukocyte Esterase Neg Urine WBC (Auto) 4 Urine RBC (Auto) 5 H Hyaline Casts 3-5 H Digoxin Influenza Typ A,B (EIA) 11/28/18 10:49 WBC RBC Hgb Hct MCV MCH MCHC RDW Plt Count MPV Neut % (Auto) Lymph % (Auto) [place] % (Auto) Eos % (Auto) Baso % (Auto) Neut # (Auto) Lymph # (Auto) [place] # (Auto) Eos # (Auto) Baso # (Auto) Neutrophils % (Manual) Lymphocytes % (Manual) Monocytes % (Manual) Platelet Estimate Polychromasia Hypochromasia (manual) Anisocytosis (manual) PT INR APTT pO2 VBG pH VBG pCO2 VBG HCO3 VBG Total CO2 VBG O2 Sat (Calc) VBG Base Excess VBG Potassium Glucose Lactate Sodium Potassium Chloride Carbon Dioxide Anion Gap BUN Creatinine Est GFR ( Amer) Est GFR (Non-Af Amer) Random Glucose Calcium Phosphorus Magnesium Total Bilirubin AST ALT Alkaline Phosphatase Troponin I NT-Pro-B Natriuret Pep Total Protein Albumin Globulin Albumin/Globulin Ratio Venous Blood Potassium Urine Color Urine Clarity Urine pH Ur Specific [place] Urine Protein Urine Glucose (UA) Urine Ketones Urine Blood Urine Nitrate Urine Bilirubin Urine Urobilinogen Ur Leukocyte Esterase Urine WBC (Auto) Urine RBC (Auto) Hyaline Casts Digoxin 1.0 Influenza Typ A,B (EIA)
--- NOTE | 2018-11-28 21:36 | CP.PCM.HP ---
History of Present Illness - History of Present Illness History of Present Illness: 62 y/o lady with hx of pacemaker and a. fib, generalized weakness, dizziness near syncope, severe migraine, tachyarrhythmia, tachycardia, a. fib with rapid ventricular response and anemia, pericardial tamponade with sever pleural effus ion. She underwent to pericadial window and several pleurocentesis. She presented in ER with severe generalized weakness and fever for several days. In ER a ct scan reveld an infiltrate with pleural and pericardial effusion. On steroid rx. Present on Admission - Present on Admission Any Indicators Present on Admission: No Review of Systems - Constitutional Constitutional: Fatigue, Fever, Headache, Malaise - EENT Eyes: As Per HPI Nose/Mouth/Throat: As Per HPI - Cardiovascular Cardiovascular: Dyspnea on Exertion - Respiratory Respiratory: Dyspnea, Dyspnea on Exertion - Gastrointestinal Gastrointestinal: As Per HPI - Musculoskeletal Musculoskeletal: Muscle Weakness - Neurological Neurological: Weakness Past Patient History - Past Medical History & Family History Past Medical History?: Yes - Past Social History Smoking Status: Never Smoked - CARDIAC Hx Atrial Fibrillation: Yes Hx Hypertension: Yes Hx Pacemaker: Yes - PULMONARY Hx Respiratory Disorders: No - NEUROLOGICAL Hx Neurological Disorder: No - HEENT Hx HEENT Problems: No - RENAL Hx Chronic Kidney Disease: No - ENDOCRINE/METABOLIC Hx Endocrine Disorders: No - HEMATOLOGICAL/ONCOLOGICAL Hx Anemia: Yes - INTEGUMENTARY Hx Dermatological Problems: No - MUSCULOSKELETAL/RHEUMATOLOGICAL Hx Musculoskeletal Disorders: No Hx Falls: No - GENITOURINARY/GYNECOLOGICAL Hx Genitourinary Disorders: No - PSYCHIATRIC Hx Substance Use: No - SURGICAL HISTORY Hx Surgeries: Yes Hx Hysterectomy: Yes Hx Mastectomy: No Other/Comment: Lobectomy, Left - ANESTHESIA Hx Anesthesia: Yes Hx Anesthesia Reactions: No Hx Malignant Hyperthermia: No Meds Allergies/Adverse Reactions: Allergies Allergy/AdvReac Type Severity Reaction Status Date / Time No Known Allergies Allergy Verified 11/28/18 08:54 Physical Exam - Constitutional Appears: Cachectic, Chronically Ill - Head Exam Head Exam: ATRAUMATIC, NORMAL INSPECTION, NORMOCEPHALIC - Eye Exam Eye Exam: Normal appearance - ENT Exam ENT Exam: Normal Exam - Neck Exam Neck exam: Positive for: Normal Inspection - Respiratory Exam Respiratory Exam: Decreased Breath Sounds - Cardiovascular Exam Cardiovascular Exam: Irregular Rhythm, +S1, +S2 - GI/Abdominal Exam GI & Abdominal Exam: Normal Bowel Sounds - Extremities Exam Extremities exam: Positive for: normal inspection - Neurological Exam Neurological exam: Alert, CN II-XII Intact, Oriented x3 - Psychiatric Exam Psychiatric exam: Depressed, Flat Affect - Skin Skin Exam: Pallor Results - Vital Signs Recent Vital Signs: Last Vital Signs Temp 98.0 F 11/28/18 19:56 Pulse 85 11/28/18 19:56 Resp 20 11/28/18 16:26 BP 106/65 11/28/18 19:56 Pulse Ox 96 11/28/18 16:26 - Labs Result Diagrams: 11/28/18 09:56 11/28/18 09:56 Labs: Laboratory Results - last 24 hr 11/28/18 11/28/18 11/28/18 09:38 09:56 09:56 WBC 28.9 H D RBC 5.14 Hgb 14.4 D Hct 44.9 MCV 87.5 MCH 28.1 MCHC 32.1 L RDW 24.0 H Plt Count 258 D MPV 8.3 Neut % (Auto) 87.4 H Lymph % (Auto) 5.3 L [place] % (Auto) 6.5 Eos % (Auto) 0.0 Baso % (Auto) 0.8 Neut # (Auto) 25.3 H Lymph # (Auto) 1.5 [place] # (Auto) 1.9 H Eos # (Auto) 0.0 Baso # (Auto) 0.2 Neutrophils % (Manual) 86 H Lymphocytes % (Manual) 7 L Monocytes % (Manual) 7 Platelet Estimate Normal Polychromasia Slight Hypochromasia (manual) Slight Anisocytosis (manual) Moderate PT 20.9 H INR 1.9 APTT 34 pO2 VBG pH VBG pCO2 VBG HCO3 VBG Total CO2 VBG O2 Sat (Calc) VBG Base Excess VBG Potassium Glucose Lactate Sodium Potassium Chloride Carbon Dioxide Anion Gap BUN Creatinine Est GFR ( Amer) Est GFR (Non-Af Amer) Random Glucose Calcium Phosphorus Magnesium Total Bilirubin AST ALT Alkaline Phosphatase Troponin I NT-Pro-B Natriuret Pep Total Protein Albumin Globulin Albumin/Globulin Ratio Venous Blood Potassium Urine Color Urine Clarity Urine pH Ur Specific [place] Urine Protein Urine Glucose (UA) Urine Ketones Urine Blood Urine Nitrate Urine Bilirubin Urine Urobilinogen Ur Leukocyte Esterase Urine WBC (Auto) Urine RBC (Auto) Hyaline Casts Digoxin Influenza Typ A,B (EIA) Negative for flu a/b 11/28/18 11/28/18 11/28/18 09:56 10:00 10:49 WBC RBC Hgb Hct MCV MCH MCHC RDW Plt Count MPV Neut % (Auto) Lymph % (Auto) [place] % (Auto) Eos % (Auto) Baso % (Auto) Neut # (Auto) Lymph # (Auto) [place] # (Auto) Eos # (Auto) Baso # (Auto) Neutrophils % (Manual) Lymphocytes % (Manual) Monocytes % (Manual) Platelet Estimate Polychromasia Hypochromasia (manual) Anisocytosis (manual) PT INR APTT pO2 33 VBG pH 7.44 H VBG pCO2 40 VBG HCO3 26.3 VBG Total CO2 28.4 H VBG O2 Sat (Calc) 66.0 H VBG Base Excess 2.8 H VBG Potassium 3.7 Glucose 158 H Lactate 2.4 H Sodium 131 L 131.0 L Potassium 4.0 Chloride 94 L 96.0 L Carbon Dioxide 29 Anion Gap 12 BUN 17 Creatinine 0.7 Est GFR ( Amer) > 60 Est GFR (Non-Af Amer) > 60 Random Glucose 161 H Calcium 9.0 Phosphorus 3.1 Magnesium 1.9 Total Bilirubin 1.7 H AST 30 ALT 29 Alkaline Phosphatase 102 Troponin I < 0.0120 NT-Pro-B Natriuret Pep 1010 H Total Protein 6.8 Albumin 3.4 L Globulin 3.3 Albumin/Globulin Ratio 1.0 Venous Blood Potassium 3.7 Urine Color Renée Urine Clarity Clear Urine pH 5.0 Ur Specific [place] 1.020 Urine Protein Negative Urine Glucose (UA) Normal Urine Ketones Negative Urine Blood 1+ H Urine Nitrate Negative Urine Bilirubin Negative Urine Urobilinogen Normal Ur Leukocyte Esterase Neg Urine WBC (Auto) 4 Urine RBC (Auto) 5 H Hyaline Casts 3-5 H Digoxin Influenza Typ A,B (EIA) 11/28/18 10:49 WBC RBC Hgb Hct MCV MCH MCHC RDW Plt Count MPV Neut % (Auto) Lymph % (Auto) [place] % (Auto) Eos % (Auto) Baso % (Auto) Neut # (Auto) Lymph # (Auto) [place] # (Auto) Eos # (Auto) Baso # (Auto) Neutrophils % (Manual) Lymphocytes % (Manual) Monocytes % (Manual) Platelet Estimate Polychromasia Hypochromasia (manual) Anisocytosis (manual) PT INR APTT pO2 VBG pH VBG pCO2 VBG HCO3 VBG Total CO2 VBG O2 Sat (Calc) VBG Base Excess VBG Potassium Glucose Lactate Sodium Potassium Chloride Carbon Dioxide Anion Gap BUN Creatinine Est GFR ( Amer) Est GFR (Non-Af Amer) Random Glucose Calcium Phosphorus Magnesium Total Bilirubin AST ALT Alkaline Phosphatase Troponin I NT-Pro-B Natriuret Pep Total Protein Albumin Globulin Albumin/Globulin Ratio Venous Blood Potassium Urine Color Urine Clarity Urine pH Ur Specific [place] Urine Protein Urine Glucose (UA) Urine Ketones Urine Blood Urine Nitrate Urine Bilirubin Urine Urobilinogen Ur Leukocyte Esterase Urine WBC (Auto) Urine RBC (Auto) Hyaline Casts Digoxin 1.0 Influenza Typ A,B (EIA) Assessment & Plan (1) Pneumonia Status: Acute (2) Severe sepsis Status: Acute (3) Anemia Status: Acute (4) Atrial fibrillation Status: Chronic (5) Hypertensive cardiovascular disease Status: Chronic (6) Pacemaker Status: Chronic (7) Pleural effusion Status: Acute (8) Richa's syndrome Status: Acute (9) Pericardial effusion Status: Acute (10) Leukocytosis Status: Acute - Assessment and Plan (Free Text) Plan: As per orders
--- NOTE | 2018-11-28 23:38 | CP.PCM.CON ---
History of Present Illness - History of Present Illness History of Present Illness: 62 F recently discharged admitted for High grade fever and Elevated WBC S/P PPM, A Fib, ? Richa's syndrome Patient has requested to be seen by Dr. Ward Patient is a 62 year old female with a hx of pleural and pericardial effusion (admitted for 4 weeks at [facility] in October) who presents today because she has been having a fever and tachycardia since Thursday. Tmax was 102.5F on Thursday. Pt did take 1 gram of Tylenol at 5:30 AM. Pt denies chest pain or SOB. Pt did have a flu shot in May. Pt is on baby aspirin (was on Eliquis but had significant bleeding). Pt states that in addition to the fever that she feels weak. PMD: Dr. Wheeler Past Medical History Reviewed: Historical Data, Nursing Documentation, Vital Signs Vital Signs: Last Vital Signs Temp 98 F 11/28/18 08:50 Pulse 98 H 11/28/18 08:50 Resp 20 11/28/18 08:50 BP 94/68 L 11/28/18 08:50 Pulse Ox 94 L 11/28/18 08:50 - Medical History PMH: Anemia, Atrial Fibrillation, HTN Other PMH: pleural & pericardial effusion Surgical History: Pacemaker Other Surgeries: hysterectomy, lung lobectomy - [facility] Procedures DRAINAGE OF LEFT PLEURAL CAVITY, PERC APPROACH, DIAGN (10/23/18) DRAINAGE OF PERICARDIAL CAVITY WITH DRAIN DEV, PERC APPROACH (10/23/18) EXCISION OF DUODENUM, ENDO, DIAGN (10/23/18) EXCISION OF STOMACH, ENDO, DIAGN (10/23/18) INSERT PACE. DUAL ULYSSES IN CHEST SUBCU/FASCIA, OPEN (07/27/18) INSERTION OF PACEMAKER LEAD INTO R VENTRICLE, PERC APPROACH (07/27/18) INSERTION OF PACEMAKER LEAD INTO RIGHT ATRIUM, PERC APPROACH (07/27/18) INSPECTION OF LOWER INTESTINAL TRACT, ENDO (10/23/18) TRANSFUSE NONAUT RED BLOOD CELLS IN PERIPH VEIN, PERC (10/23/18) Family History: States: CAD - Social History Hx Tobacco Use: No Hx Alcohol Use: No Hx Substance Use: No - Immunization History Hx Tetanus Toxoid Vaccination: No Hx Influenza Vaccination: Yes (05/2018) Hx Pneumococcal Vaccination: No Review Of Systems Except As Marked, All Systems Reviewed And Found Negative. Constitutional: Positive for: Fever Cardiovascular: Negative for: Chest Pain Respiratory: Negative for: Shortness of Breath Gastrointestinal: Negative for: Nausea Physical Exam - Physical Exam Appears: Well, Non-toxic, No Acute Distress Skin: Normal Color, Warm, Dry Head: Atraumatic Eye(s): bilateral: Normal Inspection, EOMI Ear(s): Bilateral: Normal Nose: Normal Oral Mucosa: Moist Tongue: Normal Appearing Lips: Normal Appearing Throat: Normal Neck: Normal Lymphatic: Deferred Chest: Symmetrical Cardiovascular: Rhythm Regular Respiratory: Normal Breath Sounds, No Accessory Muscle Use, No Rales, No Rhonchi Gastrointestinal/Abdominal: Normal Exam, Bowel Sounds, Soft, No Tenderness Rectal: Deferred Extremity: Normal ROM, No Pedal Edema Extremity: Bilateral: Atraumatic Pulses: Left Radial: Normal, Right Radial: Normal Neurological/Psych: Oriented x3, Normal Motor, Normal Sensation Past Patient History - Past Medical History & Family History Past Medical History?: Yes - Past Social History Smoking Status: Never Smoked - CARDIAC Hx Atrial Fibrillation: Yes Hx Hypertension: Yes Hx Pacemaker: Yes - PULMONARY Hx Respiratory Disorders: No - NEUROLOGICAL Hx Neurological Disorder: No - HEENT Hx HEENT Problems: No - RENAL Hx Chronic Kidney Disease: No - ENDOCRINE/METABOLIC Hx Endocrine Disorders: No - HEMATOLOGICAL/ONCOLOGICAL Hx Anemia: Yes - INTEGUMENTARY Hx Dermatological Problems: No - MUSCULOSKELETAL/RHEUMATOLOGICAL Hx Musculoskeletal Disorders: No Hx Falls: No - GENITOURINARY/GYNECOLOGICAL Hx Genitourinary Disorders: No - PSYCHIATRIC Hx Substance Use: No - SURGICAL HISTORY Hx Surgeries: Yes Hx Hysterectomy: Yes Hx Mastectomy: No Other/Comment: Lobectomy, Left - ANESTHESIA Hx Anesthesia: Yes Hx Anesthesia Reactions: No Hx Malignant Hyperthermia: No Meds Allergies/Adverse Reactions: Allergies Allergy/AdvReac Type Severity Reaction Status Date / Time No Known Allergies Allergy Verified 11/28/18 08:54 - Medications Medications: Current Medications Aspirin (Aspirin Chewable) 81 mg PO DAILY [facility] Colchicine (Colocrys) 0.6 mg PO DAILY [facility] Digoxin (Lanoxin) 0.25 mg PO DAILY@1800 [facility] Meropenem 500 mg/ Sodium (Chloride) 100 mls @ 100 mls/hr IVPB Q8H [facility]; Protocol Last Admin: 11/28/18 21:37 Dose: 100 mls/hr Metoprolol Tartrate (Lopressor) 25 mg PO BID [facility] Last Admin: 11/28/18 19:56 Dose: 25 mg Multivitamins (Hexavitamin) 1 tab PO DAILY [facility] Pneumococcal Polyvalent Vaccine (Pneumovax 23 Vaccine) 0.5 ml IM .ONCE ONE Stop: 12/01/18 10:01 Results - Vital Signs Recent Vital Signs: Last Vital Signs Temp 97.4 F L 11/28/18 21:42 Pulse 81 11/28/18 21:42 Resp 18 11/28/18 21:42 BP 97/60 L 11/28/18 21:42 Pulse Ox 97 11/28/18 21:42 - Labs Result Diagrams: 11/29/18 07:13 11/29/18 08:13 Labs: Laboratory Results - last 24 hr 11/28/18 11/28/18 11/28/18 09:38 09:56 09:56 WBC 28.9 H D RBC 5.14 Hgb 14.4 D Hct 44.9 MCV 87.5 MCH 28.1 MCHC 32.1 L RDW 24.0 H Plt Count 258 D MPV 8.3 Neut % (Auto) 87.4 H Lymph % (Auto) 5.3 L [place] % (Auto) 6.5 Eos % (Auto) 0.0 Baso % (Auto) 0.8 Neut # (Auto) 25.3 H Lymph # (Auto) 1.5 [place] # (Auto) 1.9 H Eos # (Auto) 0.0 Baso # (Auto) 0.2 Neutrophils % (Manual) 86 H Lymphocytes % (Manual) 7 L Monocytes % (Manual) 7 Platelet Estimate Normal Polychromasia Slight Hypochromasia (manual) Slight Anisocytosis (manual) Moderate PT 20.9 H INR 1.9 APTT 34 pO2 VBG pH VBG pCO2 VBG HCO3 VBG Total CO2 VBG O2 Sat (Calc) VBG Base Excess VBG Potassium Glucose Lactate Sodium Potassium Chloride Carbon Dioxide Anion Gap BUN Creatinine Est GFR ( Amer) Est GFR (Non-Af Amer) Random Glucose Calcium Phosphorus Magnesium Total Bilirubin AST ALT Alkaline Phosphatase Troponin I NT-Pro-B Natriuret Pep Total Protein Albumin Globulin Albumin/Globulin Ratio Venous Blood Potassium Urine Color Urine Clarity Urine pH Ur Specific [place] Urine Protein Urine Glucose (UA) Urine Ketones Urine Blood Urine Nitrate Urine Bilirubin Urine Urobilinogen Ur Leukocyte Esterase Urine WBC (Auto) Urine RBC (Auto) Hyaline Casts Digoxin Influenza Typ A,B (EIA) Negative for flu a/b 11/28/18 11/28/18 11/28/18 09:56 10:00 10:49 WBC RBC Hgb Hct MCV MCH MCHC RDW Plt Count MPV Neut % (Auto) Lymph % (Auto) [place] % (Auto) Eos % (Auto) Baso % (Auto) Neut # (Auto) Lymph # (Auto) [place] # (Auto) Eos # (Auto) Baso # (Auto) Neutrophils % (Manual) Lymphocytes % (Manual) Monocytes % (Manual) Platelet Estimate Polychromasia Hypochromasia (manual) Anisocytosis (manual) PT INR APTT pO2 33 VBG pH 7.44 H VBG pCO2 40 VBG HCO3 26.3 VBG Total CO2 28.4 H VBG O2 Sat (Calc) 66.0 H VBG Base Excess 2.8 H VBG Potassium 3.7 Glucose 158 H Lactate 2.4 H Sodium 131 L 131.0 L Potassium 4.0 Chloride 94 L 96.0 L Carbon Dioxide 29 Anion Gap 12 BUN 17 Creatinine 0.7 Est GFR ( Amer) > 60 Est GFR (Non-Af Amer) > 60 Random Glucose 161 H Calcium 9.0 Phosphorus 3.1 Magnesium 1.9 Total Bilirubin 1.7 H AST 30 ALT 29 Alkaline Phosphatase 102 Troponin I < 0.0120 NT-Pro-B Natriuret Pep 1010 H Total Protein 6.8 Albumin 3.4 L Globulin 3.3 Albumin/Globulin Ratio 1.0 Venous Blood Potassium 3.7 Urine Color Renée Urine Clarity Clear Urine pH 5.0 Ur Specific [place] 1.020 Urine Protein Negative Urine Glucose (UA) Normal Urine Ketones Negative Urine Blood 1+ H Urine Nitrate Negative Urine Bilirubin Negative Urine Urobilinogen Normal Ur Leukocyte Esterase Neg Urine WBC (Auto) 4 Urine RBC (Auto) 5 H Hyaline Casts 3-5 H Digoxin Influenza Typ A,B (EIA) 11/28/18 10:49 WBC RBC Hgb Hct MCV MCH MCHC RDW Plt Count MPV Neut % (Auto) Lymph % (Auto) [place] % (Auto) Eos % (Auto) Baso % (Auto) Neut # (Auto) Lymph # (Auto) [place] # (Auto) Eos # (Auto) Baso # (Auto) Neutrophils % (Manual) Lymphocytes % (Manual) Monocytes % (Manual) Platelet Estimate Polychromasia Hypochromasia (manual) Anisocytosis (manual) PT INR APTT pO2 VBG pH VBG pCO2 VBG HCO3 VBG Total CO2 VBG O2 Sat (Calc) VBG Base Excess VBG Potassium Glucose Lactate Sodium Potassium Chloride Carbon Dioxide Anion Gap BUN Creatinine Est GFR ( Amer) Est GFR (Non-Af Amer) Random Glucose Calcium Phosphorus Magnesium Total Bilirubin AST ALT Alkaline Phosphatase Troponin I NT-Pro-B Natriuret Pep Total Protein Albumin Globulin Albumin/Globulin Ratio Venous Blood Potassium Urine Color Urine Clarity Urine pH Ur Specific [place] Urine Protein Urine Glucose (UA) Urine Ketones Urine Blood Urine Nitrate Urine Bilirubin Urine Urobilinogen Ur Leukocyte Esterase Urine WBC (Auto) Urine RBC (Auto) Hyaline Casts Digoxin 1.0 Influenza Typ A,B (EIA) Assessment & Plan - Assessment and Plan (Free Text) Assessment: 62 F recently discharged admitted for High grade fever and Elevated WBC S/P PPM, A Fib, ? Richa's syndrome
[2018-11-29] MEDS: Meropenem 500 MG in Sodium Chloride 0.9% 100 ML IVPB SCH ×3 (05:38→21:36)
[2018-11-29 08:22] LABS: BASO # 0.1 K/uL (0.0-0.2); BASO % 0.5 % (0.0-2.0); EOS # 0.1 K/uL (0.0-0.7); EOS % 0.5 % (0.0-4.0); HEMOGLOBIN 12.7 g/dL (11.0-16.0); LYMPH # 1.3 K/uL (1.0-4.3); LYMPH % 8.2 % (20.0-40.0); MEAN CELL VOLUME 87.7 fL (81.0-99.0); MEAN CORPUSCULAR HEMOGLOBIN 28.7 pg (27.0-31.0); MEAN CORPUSCULAR HGB CONC 32.7 g/dL (33.0-37.0); MEAN PLATELET VOLUME 8.8 fL (7.2-11.7); MONO # 1.2 K/uL (0.0-0.8); MONO % 7.8 % (0.0-10.0); PLATELET COUNT 222 K/uL (130-400); RBC 4.43 Mil/uL (3.80-5.20); WHITE BLOOD COUNT 15.7 K/uL (4.8-10.8)
[2018-11-29 08:35] LABS: BLOOD UREA NITROGEN 19 mg/dL (7-17); CALCIUM 8.3 mg/dl (8.6-10.4); GFR NON-AFRICAN AMERICAN > 60
[2018-11-29 09:17] LABS: EOSINOPHIL 1 % (0-4); LYMPHOCYTE 5 % (20-40); MONOCYTE 9 % (0-10); NEUTROPHIL 85 % (50-75); PLATELET ESTIMATE NORMAL (NORMAL); TOTAL CELLS COUNTED 100
[2018-11-29 09:22] LABS: ERYTHROCYTE SEDIMENTATION RATE 55 mm/hr (0-20)
[2018-11-29] MEDS ORDERED: Enoxaparin 40 mg Syringe SC SCH (10:00)
[2018-11-29] MEDS: Potassium Chloride 20 mEq ER Tab PO SCH (10:30)
--- NOTE | 2018-11-29 12:11 | CP.PCM.PN ---
Subjective - Date & Time of Evaluation Date of Evaluation: 11/29/18 Time of Evaluation: 12:10 - Subjective Subjective: Patient now having fever of 102.5. No abdominal pain. No rash noted. On examination: Vital signs are stable otherwise, temperature 102.5F. But she is feeling well otherwise. Patient has no chills. Mild headache noted. She does not have any nausea no vomiting no chest pain no cough chest bilateral good air entry, no wheezing or rales noted Heart sounds are normal. CAT scan of the chest reviewed Patient today had echocardiogram Assessment and recommendation: 62-year-old female with a history of pericardial, pleural effusion. History of recent pacemaker. Complicated with recurrent effusion. Number admitted for fever of unclear origin. Inflammatory condition likely. Infectious disease on. We will repeat the cultures again. CAT scan of the abdomen ordered. Tylenol and will follow the patient. Pulmonary point of view patient is stable Objective - Vital Signs/Intake and Output Vital Signs (last 24 hours): Temp Pulse Resp BP Pulse Ox 98.9 F 82 20 110/71 95 11/29/18 07:00 11/29/18 07:00 11/29/18 07:00 11/29/18 10:30 11/29/18 07:00 - Medications Medications: Current Medications Acetaminophen (Tylenol 325mg Tab) 650 mg PO Q6 PRN PRN Reason: Fever >100.4 F Aspirin (Aspirin Chewable) 81 mg PO DAILY [facility] Last Admin: 11/29/18 10:30 Dose: 81 mg Colchicine (Colocrys) 0.6 mg PO DAILY [facility] Last Admin: 11/29/18 10:31 Dose: 0.6 mg Digoxin (Lanoxin) 0.25 mg PO DAILY@1800 [facility] Enoxaparin Sodium (Lovenox) 40 mg SC DAILY [facility] Last Admin: 11/29/18 10:32 Dose: Not Given Meropenem 500 mg/ Sodium (Chloride) 100 mls @ 100 mls/hr IVPB Q8H [facility]; Protocol Last Admin: 11/29/18 05:38 Dose: 100 mls/hr Metoprolol Tartrate (Lopressor) 25 mg PO BID [facility] Last Admin: 11/29/18 10:30 Dose: 25 mg Multivitamins (Hexavitamin) 1 tab PO DAILY [facility] Pneumococcal Polyvalent Vaccine (Pneumovax 23 Vaccine) 0.5 ml IM .ONCE ONE Stop: 12/01/18 10:01 Potassium Chloride (K-Dur 20 Meq Er Tab) 40 meq PO BRK [facility] Last Admin: 11/29/18 10:30 Dose: 40 meq - Labs Labs: 11/29/18 07:13 11/29/18 08:13 PT 20.9 SECONDS (9.7-12.2) H 11/28/18 09:56 INR 1.9 11/28/18 09:56 APTT 34 SECONDS (21-34) 11/28/18 09:56
[2018-11-29] MEDS ORDERED: Iohexol 240 (50 ml) PO ONE (13:45)
[2018-11-29 15:43] LABS: URINE BILIRUBIN NEGATIVE (NEGATIVE); URINE BLOOD 1+ (NEGATIVE); URINE CLARITY Clear (Clear); URINE COLOR Straw (YELLOW); URINE GLUCOSE (UA) NORMAL (Normal); URINE LEUKOCYTE ESTERASE NEG Leu/uL (Negative); URINE PROTEIN NEGATIVE (NEGATIVE); URINE UROBILINOGEN NORMAL mg/dL (0.2-1.0)
--- NOTE | 2018-11-29 17:30 | CT ---
Date of service: 11/29/2018 PROCEDURE: CT Abdomen and Pelvis with contrast HISTORY: Sepsis, fever, CHF. COMPARISON: 11/10/2018. CT abdomen and pelvis. TECHNIQUE: Intravenous contrast dose: Radiation dose: Total exam DLP = <inf_radiation_dlp> mGy-cm. This CT exam was performed using one or more of the following dose reduction techniques: Automated exposure control, adjustment of the mA and/or kV according to patient size, and/or use of iterative reconstruction technique. FINDINGS: LOWER THORAX: Stable, small pericardial effusion. Stable bilateral pleural effusions and associated compressive atelectasis. LIVER: Cirrhotic appearing liver. No acute interval changes. GALLBLADDER AND BILE DUCTS: Unremarkable. Pericholecystic fluid identified previously is not appreciated on this unenhanced examination. PANCREAS: Unremarkable. No gross lesion or ductal dilatation. SPLEEN: Unremarkable. ADRENALS: Unremarkable. No mass. KIDNEYS AND URETERS: Unremarkable. No hydronephrosis. No solid mass. VASCULATURE: Unremarkable. No aortic aneurysm. Atherosclerotic calcification and mural plaque present. Findings are seen throughout the aorta which is non aneurysmal. BOWEL: Unremarkable. No obstruction. No gross mural thickening. APPENDIX: Normal appendix. PERITONEUM: Unremarkable. No free fluid. No free air. LYMPH NODES: Unremarkable. No enlarged lymph nodes. BLADDER: Unremarkable. REPRODUCTIVE: Prior hysterectomy. BONES: No acute fracture. Stable compression deformities lumbar spine. OTHER FINDINGS: None. IMPRESSION: No acute findings related to/ accounting for the clinical presentation. Additional benign and/or incidental findings described above. Stable findings in the thorax as visualized.
--- NOTE | 2018-11-29 17:39 | CARD ---
APPROVED REPORT Date of service: 11/29/2018 EXAM: LIMITED Two-dimensional and M-mode echocardiogram. Other Information Quality : GoodRhythm : INDICATION Pericardial Effusion limited echo f/u pericardial effusion Mitral Valve E/A ratio0.0 TDI E/Lateral E'0.0E/Medial E'0.0 LEFT VENTRICLE The left ventricle is normal size. There is mild concentric left ventricular hypertrophy. The left ventricular function is normal. The left ventricular ejection fraction is within the normal range. There is normal LV segmental wall motion. RIGHT VENTRICLE The right ventricle is mildly hypertrophied. The right ventricular systolic function is normal. There is a pacemaker lead in the right ventricle. ATRIA The left atrium size is normal. The right atrium size is normal. PERICARDIAL EFFUSION There is a small pericardial effusion. no changes compared to 11/12/2018 study There is left pleural effusion. <Conclusion> There is a small pericardial effusion. no changes compared to 11/12/2018 study
[2018-11-29] MEDS ORDERED: Digoxin 250 mcg (0.25 mg) Tab PO SCH (18:00)
--- NOTE | 2018-11-29 18:24 | CARD ---
APPROVED REPORT Date of service: 11/28/2018 EKG Measurement Heart [id number] <Conclusion> Normal sinus rhythm Left axis deviation Left bundle branch block Abnormal ECG
--- NOTE | 2018-11-29 18:45 | CP.PCM.CON ---
History of Present Illness - History of Present Illness History of Present Illness: INFECTIOUS DISEASE CONSULTATION MARK ANTHONY DOLAN MD, FACP 11/29/2018 6T [id number] CHART REVIEWED PT EXAMINED CASE DISCUSSED PERSONALLY WITH PAIN MANAGEMENT PHYSICIAN AND SCOTT GUERRERO AND JONE THIS EVENING CALL PLACED TO DR MELTON CLINICALLY THIS PT IS A 62 YEAR OLD WHITE FEMALE READMITTED LAST NIGHT SINCE PAST ADMISSION 11/18/2018 WITH WEAKNESS AND SEVERAL DAYS OF TEMPERATURES. SHE WAS FOUND TO HAVE AN ELEVATED WBC OF 28,900 AND FEVERS, WITH POSSIBLY AN ISSUE OF PNEUMONITIS(?) ERGO, AN INFECTIOUS DISESAE CONSULTATION WAS REQUESTED SECONDARY TO POSSIBLE SEPSIS-ETIOLOGY TO BE DETERMINED. ON HER LAST ADMISSION SHE WAS FOUND TO BE S/P PACEMAKER 1-2 MONTHS PRIOR, S/P PERICARDIAL TAMPONADE/PERICARDIAL WINDOW, AND NUMBEROUS THORACENTESIS, HTN, TA CHYBRADCARDIA, ANEMIA VIT B12, AND GENERALIZED MUSCLE LOSS. ON HER PERVIOUS ADMISSION SHE WAS D/C ON COLCHININE AND PREDNISONE. APPARENTLY SHE FINISHED A MEDROL DOSE PACK 1-2 DAYS PRIOR TO RESTARTING WITH TEMPS. ROS; NO COUGH, NO CHEST PAIN, NO N,V,D,C, NO RASHES, HEADACHES, WT ISSUES(?). NO ALLERGIES NO RECENT TOBACCO RARE ETOH PLEASE CHECK HER LAST CHART FOR MORE INDEPT REPORTING FAMILY NOT SIGNIFICIANT. LABS: WBC 28,900 NOW 15,000 BUN 17, CREAT 0.7 eGFR 60 ESR 55, CRP OVER 200. VSS: EXCEPT FOR PERIODS OF ELEVATED TEMPS-PERIODICALLY. AWAKE, ALERT, IN NAD SUPPLE CHEST CLEAR COR RR ABD SOFT, NO PAIN EXT NO CYCANOSIS NEURO NO FOCAL FINDINGS IMPRESSION: 62 YR OLD FEMALE WITH HX OF HEMORRAGIC PERICADITIS REQUIRING A WIINDOW, RESOLVING; AN UNUSAL DX OF PACEMAKER ALLERGY PLACED ON COLCHICINE AND NAPROSYN AND THEN SUBSEQUENTLY PREDNISONE(?). R/O [facility] ACQUIRED STARTED ON MERREM ADD VIBRAMYCIN. RECOMMEND HEM/ONCO PLEASE HOLD TYLENOL, UNLESS ABSOLUTELY NEEDED, PRN ONLY! Past Patient History - Past Medical History & Family History Past Medical History?: Yes - Past Social History Smoking Status: Never Smoked - CARDIAC Hx Hypertension: Yes - PULMONARY Hx Respiratory Disorders: No - NEUROLOGICAL Hx Neurological Disorder: No - HEENT Hx HEENT Problems: No - RENAL Hx Chronic Kidney Disease: No - ENDOCRINE/METABOLIC Hx Endocrine Disorders: No - HEMATOLOGICAL/ONCOLOGICAL Hx Anemia: Yes - INTEGUMENTARY Hx Dermatological Problems: No - MUSCULOSKELETAL/RHEUMATOLOGICAL Hx Musculoskeletal Disorders: No Hx Falls: No - GENITOURINARY/GYNECOLOGICAL Hx Genitourinary Disorders: No - PSYCHIATRIC Hx Substance Use: No - SURGICAL HISTORY Hx Surgeries: Yes Hx Hysterectomy: Yes Hx Mastectomy: No Other/Comment: Lobectomy, Left - ANESTHESIA Hx Anesthesia: Yes Hx Anesthesia Reactions: No Hx Malignant Hyperthermia: No Meds Allergies/Adverse Reactions: Allergies Allergy/AdvReac Type Severity Reaction Status Date / Time No Known Allergies Allergy Verified 11/28/18 08:54 - Medications Medications: Current Medications Aspirin (Aspirin Chewable) 81 mg PO DAILY [facility] Last Admin: 11/29/18 10:30 Dose: 81 mg Colchicine (Colocrys) 0.6 mg PO DAILY [facility] Last Admin: 11/29/18 10:31 Dose: 0.6 mg Digoxin (Lanoxin) 0.25 mg PO DAILY@1800 [facility] Meropenem 500 mg/ Sodium (Chloride) 100 mls @ 100 mls/hr IVPB Q8H [facility]; Protocol Last Admin: 11/29/18 14:27 Dose: 100 mls/hr Metoprolol Tartrate (Lopressor) 25 mg PO BID [facility] Last Admin: 11/29/18 10:30 Dose: 25 mg Multivitamins (Hexavitamin) 1 tab PO DAILY [facility] Pneumococcal Polyvalent Vaccine (Pneumovax 23 Vaccine) 0.5 ml IM .ONCE ONE Stop: 12/01/18 10:01 Potassium Chloride (K-Dur 20 Meq Er Tab) 40 meq PO BRK [facility] Last Admin: 11/29/18 10:30 Dose: 40 meq Results - Vital Signs Recent Vital Signs: Last Vital Signs Temp 98.4 F 11/29/18 16:00 Pulse 70 11/29/18 16:00 Resp 18 11/29/18 16:00 BP 91/55 L 11/29/18 16:00 Pulse Ox 97 11/29/18 16:00 - Labs Result Diagrams: 11/29/18 07:13 11/29/18 08:13 Labs: Laboratory Results - last 24 hr 11/29/18 11/29/18 11/29/18 07:13 08:13 13:10 WBC 15.7 H RBC 4.43 Hgb 12.7 Hct 38.8 MCV 87.7 MCH 28.7 MCHC 32.7 L RDW 24.0 H Plt Count 222 MPV 8.8 Neut % (Auto) 83.0 H Lymph % (Auto) 8.[address] [place] % (Auto) 7.8 Eos % (Auto) 0.5 Baso % (Auto) 0.5 Neut # (Auto) 13.0 H Lymph # (Auto) 1.3 [place] # (Auto) 1.2 H Eos # (Auto) 0.1 Baso # (Auto) 0.1 Neutrophils % (Manual) 85 H Lymphocytes % (Manual) 5 L Monocytes % (Manual) 9 Eosinophils % (Manual) 1 Platelet Estimate Normal ESR 55 H Sodium 134 Potassium 3.5 L Chloride 98 Carbon Dioxide 31 H Anion Gap 8 L BUN 19 H Creatinine 0.6 L Est GFR ( Amer) > 60 Est GFR (Non-Af Amer) > 60 Random Glucose 103 D Calcium 8.3 L Phosphorus 2.2 L Magnesium 1.7 Lactate Dehydrogenase 362 C-Reactive Protein 208.70 H Urine Color Straw Urine Clarity Clear Urine pH 6.0 Ur Specific [place] 1.001 L Urine Protein Negative Urine Glucose (UA) Normal Urine Ketones Negative Urine Blood 1+ H Urine Nitrate Negative Urine Bilirubin Negative Urine Urobilinogen Normal Ur Leukocyte Esterase Neg Urine WBC (Auto) < 1 Urine RBC (Auto) 2
[2018-11-29] MEDS: Digoxin 250 mcg (0.25 mg) Tab PO SCH (18:49)
[2018-11-29] MEDS: Multiple Vitamins Tab PO SCH (19:42)
--- NOTE | 2018-11-29 20:04 | CP.PCM.PN ---
Subjective - Date & Time of Evaluation Date of Evaluation: 11/29/18 Time of Evaluation: 19:45 - Subjective Subjective: came to see patient at the request of Dr Sultana. Chart reviewed. I explained to patient that I do not have anything new to add to her current management. As she is currently being cared for by Dr Sultana I recommend she continue the current plan. Dr Ravi to see from EP. Objective - Vital Signs/Intake and Output Vital Signs (last 24 hours): Temp Pulse Resp BP Pulse Ox 98.3 F 76 20 98/62 L 96 11/29/18 18:48 11/29/18 18:00 11/29/18 18:00 11/29/18 18:00 11/29/18 18:00 Intake and Output: 11/29/18 11/30/18 18:59 06:59 Intake Total 400 Balance 400 - Medications Medications: Current Medications Aspirin (Aspirin Chewable) 81 mg PO DAILY [facility] Last Admin: 11/29/18 10:30 Dose: 81 mg Colchicine (Colocrys) 0.6 mg PO DAILY [facility] Last Admin: 11/29/18 10:31 Dose: 0.6 mg Digoxin (Lanoxin) 0.25 mg PO DAILY@1800 [facility] Last Admin: 11/29/18 18:49 Dose: 0.25 mg Doxycycline Hyclate (Doryx) 100 mg PO Q12H [facility]; Protocol Last Admin: 11/29/18 19:37 Dose: 100 mg Meropenem 500 mg/ Sodium (Chloride) 100 mls @ 100 mls/hr IVPB Q8H [facility]; Protocol Last Admin: 11/29/18 14:27 Dose: 100 mls/hr Metoprolol Tartrate (Lopressor) 25 mg PO BID [facility] Last Admin: 11/29/18 10:30 Dose: 25 mg Multivitamins (Hexavitamin) 1 tab PO DAILY [facility] Last Admin: 11/29/18 19:42 Dose: 1 tab Pneumococcal Polyvalent Vaccine (Pneumovax 23 Vaccine) 0.5 ml IM .ONCE ONE Stop: 12/01/18 10:01 Potassium Chloride (K-Dur 20 Meq Er Tab) 40 meq PO BRK [facility] Last Admin: 11/29/18 10:30 Dose: 40 meq - Labs Labs: 11/29/18 07:13 11/29/18 08:13 PT 20.9 SECONDS (9.7-12.2) H 11/28/18 09:56 INR 1.9 11/28/18 09:56 APTT 34 SECONDS (21-34) 11/28/18 09:56
--- NOTE | 2018-11-29 22:16 | CP.PCM.PN ---
Subjective - Date & Time of Evaluation Date of Evaluation: 11/29/18 Time of Evaluation: 08:30 - Subjective Subjective: Patient admitted for fever and elevated WBC ID and EP eval pending Objective - Vital Signs/Intake and Output Vital Signs (last 24 hours): Temp Pulse Resp BP Pulse Ox 98.6 F 79 20 115/69 95 11/29/18 21:41 11/29/18 21:41 11/29/18 21:41 11/29/18 21:43 11/29/18 21:41 Intake and Output: 11/29/18 11/30/18 18:59 06:59 Intake Total 400 Balance 400 - Medications Medications: Current Medications Aspirin (Aspirin Chewable) 81 mg PO DAILY [facility] Last Admin: 11/29/18 10:30 Dose: 81 mg Colchicine (Colocrys) 0.6 mg PO DAILY [facility] Last Admin: 11/29/18 10:31 Dose: 0.6 mg Digoxin (Lanoxin) 0.25 mg PO DAILY@1800 [facility] Last Admin: 11/29/18 18:49 Dose: 0.25 mg Doxycycline Hyclate (Doryx) 100 mg PO Q12H [facility]; Protocol Last Admin: 11/29/18 19:37 Dose: 100 mg Meropenem 500 mg/ Sodium (Chloride) 100 mls @ 100 mls/hr IVPB Q8H [facility]; Protocol Last Admin: 11/29/18 21:36 Dose: 100 mls/hr Metoprolol Tartrate (Lopressor) 25 mg PO BID [facility] Last Admin: 11/29/18 21:43 Dose: 25 mg Multivitamins (Hexavitamin) 1 tab PO DAILY [facility] Last Admin: 11/29/18 19:42 Dose: 1 tab Pneumococcal Polyvalent Vaccine (Pneumovax 23 Vaccine) 0.5 ml IM .ONCE ONE Stop: 12/01/18 10:01 Potassium Chloride (K-Dur 20 Meq Er Tab) 40 meq PO BRK [facility] Last Admin: 11/29/18 10:30 Dose: 40 meq - Labs Labs: 11/29/18 07:13 11/29/18 08:13 PT 20.9 SECONDS (9.7-12.2) H 11/28/18 09:56 INR 1.9 11/28/18 09:56 APTT 34 SECONDS (21-34) 11/28/18 09:56
--- NOTE | 2018-11-30 00:15 | CP.PCM.CON ---
History of Present Illness - History of Present Illness History of Present Illness: Cardiac-Electrophysiology consult Re: atrial fibrillation/effusion Chart reviewed Seen interviewed and examined Known by prior evaluation and pacemaker implantation History of present illness: Admitted 11.28.2018 with a history of fever (102 F) and generalized weakness; post admission was noted to have leukocytosis; sepsis was presumed and placed on antibiotics; CXR/CT/Echo showed mild pleural and pericardial effusion She was evaluated initially in when she was admitted with a history of tachycardia at a routine examination. She was admitted in the ICU rate controlled; an echocardiogram and coronary studies were negative; she was placed on anticoagulation and transferred to the floor; she was noted to have LBBB and slow heart rates in the forties. She has no significant symptoms except for an episode of brief disorientation on per her Given the tachy-oc syndrome and paroxysmal atrial fibrillation and an episode of unsteadiness; assuming the latter being hemodynamically mediated options were to continue monitoring minimize rate control medications a loop recorder implant versus a permanent pacemaker implant Anticoagulation in absence of bleeding contraindications was reasonable; there was no imperative for a rhythm control strategy at that point She underwent a dual chamber permanent pacemaker in 08.19.2019; the ankit- operative course was unremarkable; she was seen in the clinic subseqeuntly; the surgical wound healed and she returned to work and anticoagulation was resumed She was then admitted with tachycardia in 11.01.2018 and had a complicated protracted course marked by hemorrhagic pericardial effusion pleural effusion fevers, pericardial window, with hematological/ID consults The mechanism of the exudative inflammatory effusions was not clear, work up for malignancy and infection/tuberculosis was negative A post-cardiac injury syndrome 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 was a possibility; a lead perforation was unlikely given the time frame of presentation and the presence of pleural effusion; she was discharged on NSAIDS, cholchicine and a course of prednisone It was deemed reasonable to continue with aspirin and defer anticoagulation until resolution of "inflammation" guided by markers (ESR/CRP) and recession of effusion; of note her CHADS/SCORE is relatively low; she was not a candidate for a Watchman closure device @ this point Additional past medical history: systemic hypertension, osteoporosis Past surgery: Hysterectomy, Lung mass biopsy of nodule (benign results) Social History: Denies tobacco, alcohol, or drug use. Works in a [employer]. Family History: Father had heart disease and of CVA in his 50's. Mother had a thyroid tumor Allergies: NKDA Medications: Aspirin metoprolol cholchicine digoxin Exam No distress Normal venous pressures Lungs: clear No rub Abdomen soft Ext: no edema EKG: sinus LBBB # wide complex irregular tachycardia suggestive of atrial fibrillation Labs: WBC: 29/16/11; Troponin 0.01; BNP 1010 Echo: reviewed; 11.28.2018; mild pericardial effusion CT : reviewed; 11.28.2018; mild pleural effusion Assessment and plan: Ms. Norris presented with a recurrent febrile syndrome with Neutrophillic leukocytosis on a background of a recently completed short steroid therapy for inflammatory hemorrhagic serositis, presumably due to a post-cardiac injury syndrome related to a 'screw-in' dual chamber pacemaker implant As alluded previously the mechanism of the inflammatory state with exudative effusions remains inconclusive; malignancy and infection/tuberculosis should again be revisited. If the work up is negative, a relapse of the aforementioned process (post- cardiac injury serositis) would remain a working diagnosis; I would reconsider reconstituting antiinflammatories (NSAIDS/steroids) and tapering them over a longer protracted period guided by markers (ESR/CRP) ; this therapeutic regimen would still be reasonable if an alternative etiological process (? viral/idiopathic) is a consideration Again as reiterated earlier a lead perforation is unlikely given the time frame of presentation and the presence of pleural effusion. Its reasonable to continue with aspirin and defer anticoagulation until resolution of "inflammation" and recession of effusion; of note her CHADS/SCORE is relatively low; she is not a candidate for a Watchman closure device @ this point. A rhythm control strategy should be a consideration post resolution with an anti-arrhythmic and or ablation Past Patient History - Past Medical History & Family History Past Medical History?: Yes - Past Social History Smoking Status: Never Smoked - CARDIAC Hx Atrial Fibrillation: Yes Hx Hypertension: Yes Hx Pacemaker: Yes - PULMONARY Hx Respiratory Disorders: No - NEUROLOGICAL Hx Neurological Disorder: No - HEENT Hx HEENT Problems: No - RENAL Hx Chronic Kidney Disease: No - ENDOCRINE/METABOLIC Hx Endocrine Disorders: No - HEMATOLOGICAL/ONCOLOGICAL Hx Anemia: Yes - INTEGUMENTARY Hx Dermatological Problems: No - MUSCULOSKELETAL/RHEUMATOLOGICAL Hx Musculoskeletal Disorders: No Hx Falls: No - GENITOURINARY/GYNECOLOGICAL Hx Genitourinary Disorders: No - PSYCHIATRIC Hx Substance Use: No - SURGICAL HISTORY Hx Surgeries: Yes Hx Hysterectomy: Yes Hx Mastectomy: No Other/Comment: Lobectomy, Left - ANESTHESIA Hx Anesthesia: Yes Hx Anesthesia Reactions: No Hx Malignant Hyperthermia: No Meds Allergies/Adverse Reactions: Allergies Allergy/AdvReac Type Severity Reaction Status Date / Time No Known Allergies Allergy Verified 11/28/18 08:54 - Medications Medications: Current Medications Aspirin (Aspirin Chewable) 81 mg PO DAILY [facility] Last Admin: 11/29/18 10:30 Dose: 81 mg Colchicine (Colocrys) 0.6 mg PO DAILY [facility] Last Admin: 11/29/18 10:31 Dose: 0.6 mg Digoxin (Lanoxin) 0.25 mg PO DAILY@1800 [facility] Last Admin: 11/29/18 18:49 Dose: 0.25 mg Doxycycline Hyclate (Doryx) 100 mg PO Q12H [facility]; Protocol Last Admin: 11/29/18 19:37 Dose: 100 mg Meropenem 500 mg/ Sodium (Chloride) 100 mls @ 100 mls/hr IVPB Q8H [facility]; Protocol Last Admin: 11/29/18 21:36 Dose: 100 mls/hr Metoprolol Tartrate (Lopressor) 25 mg PO BID [facility] Last Admin: 11/29/18 21:43 Dose: 25 mg Multivitamins (Hexavitamin) 1 tab PO DAILY [facility] Last Admin: 11/29/18 19:42 Dose: 1 tab Pneumococcal Polyvalent Vaccine (Pneumovax 23 Vaccine) 0.5 ml IM .ONCE ONE Stop: 12/01/18 10:01 Potassium Chloride (K-Dur 20 Meq Er Tab) 40 meq PO BRK [facility] Last Admin: 11/29/18 10:30 Dose: 40 meq Results - Vital Signs Recent Vital Signs: Last Vital Signs Temp 98.6 F 11/29/18 21:41 Pulse 79 11/29/18 21:41 Resp 20 11/29/18 21:41 BP 115/69 11/29/18 21:43 Pulse Ox 95 11/29/18 21:41 - Labs Result Diagrams: 11/29/18 07:13 11/29/18 08:13 Labs: Laboratory Results - last 24 hr 11/29/18 11/29/18 11/29/18 07:13 08:13 13:10 WBC 15.7 H RBC 4.43 Hgb 12.7 Hct 38.8 MCV 87.7 MCH 28.7 MCHC 32.7 L RDW 24.0 H Plt Count 222 MPV 8.8 Neut % (Auto) 83.0 H Lymph % (Auto) 8.2 L [place] % (Auto) 7.8 Eos % (Auto) 0.5 Baso % (Auto) 0.5 Neut # (Auto) 13.0 H Lymph # (Auto) 1.3 [place] # (Auto) 1.2 H Eos # (Auto) 0.1 Baso # (Auto) 0.1 Neutrophils % (Manual) 85 H Lymphocytes % (Manual) 5 L Monocytes % (Manual) 9 Eosinophils % (Manual) 1 Platelet Estimate Normal ESR 55 H Sodium 134 Potassium 3.5 L Chloride 98 Carbon Dioxide 31 H Anion Gap 8 L BUN 19 H Creatinine 0.6 L Est GFR ( Amer) > 60 Est GFR (Non-Af Amer) > 60 Random Glucose 103 D Calcium 8.3 L Phosphorus 2.2 L Magnesium 1.7 Lactate Dehydrogenase 362 C-Reactive Protein 208.70 H Urine Color Straw Urine Clarity Clear Urine pH 6.0 Ur Specific [place] 1.001 L Urine Protein Negative Urine Glucose (UA) Normal Urine Ketones Negative Urine Blood 1+ H Urine Nitrate Negative Urine Bilirubin Negative Urine Urobilinogen Normal Ur Leukocyte Esterase Neg Urine WBC (Auto) < 1 Urine RBC (Auto) 2
[2018-11-30] MEDS ORDERED: Sodium Chloride 0.9% 250 ML IV ONE (04:28)
[2018-11-30] MEDS: Meropenem 500 MG in Sodium Chloride 0.9% 100 ML IVPB SCH ×3 (05:24→21:30)
--- NOTE | 2018-11-30 08:01 | RAD ---
Date of service: 11/30/2018 HISTORY: tachycardia, palpitations COMPARISON: 11/28/2017 TECHNIQUE: 1 view obtained. FINDINGS: LUNGS: Interval increase left basal opacity PLEURA: Interval increase left pleural effusion. The trace right pleural effusion is similar and or smaller. No pneumothorax appreciated. CARDIOVASCULAR: No aortic atherosclerotic calcification present. Mild cardiomegaly-accentuated. Pulmonary vasculature appears top-normal. [address] in [address]-leads grossly intact. Positions appear grossly satisfactory OSSEOUS STRUCTURES: No significant abnormalities. VISUALIZED UPPER ABDOMEN: Contrast in bowel--compatible with recent CT abdomen and pelvic exam. OTHER FINDINGS: Perihilar surgical changes-similar. IMPRESSION: Interval increased left pleural effusion with inferred left basal compressive atelectasis (with or without infiltrate). No significant appearing change in the probable trace right pleural effusion. Other findings as above.
[2018-11-30] MEDS: Potassium Chloride 20 mEq ER Tab PO SCH (09:15)
[2018-11-30 09:29] LABS: BASO % 0.3 % (0.0-2.0); EOS # 0.1 K/uL (0.0-0.7); EOS % 0.8 % (0.0-4.0); HEMOGLOBIN 13.1 g/dL (11.0-16.0); LYMPH # 1.7 K/uL (1.0-4.3); LYMPH % 15.8 % (20.0-40.0); MEAN CELL VOLUME 87.6 fL (81.0-99.0); MEAN CORPUSCULAR HEMOGLOBIN 28.7 pg (27.0-31.0); MEAN CORPUSCULAR HGB CONC 32.8 g/dL (33.0-37.0); MEAN PLATELET VOLUME 8.4 fL (7.2-11.7); MONO # 0.9 K/uL (0.0-0.8); MONO % 8.1 % (0.0-10.0); NEUT # 8.1 K/uL (1.8-7.0); NRBC % 0.1 % (0.0-2.0); RBC 4.56 Mil/uL (3.80-5.20); WHITE BLOOD COUNT 10.8 K/uL (4.8-10.8)
[2018-11-30 09:40] LABS: BLOOD UREA NITROGEN 12 mg/dL (7-17); CALCIUM 8.2 mg/dl (8.6-10.4); GFR NON-AFRICAN AMERICAN > 60
[2018-11-30] MEDS: Multiple Vitamins Tab PO SCH (10:40)
--- NOTE | 2018-11-30 14:01 | CP.PCM.PN ---
Subjective - Date & Time of Evaluation Date of Evaluation: 11/30/18 Time of Evaluation: 14:02 - Subjective Subjective: Patient improving. Family at bed side. Still low grade fever, wbc to nl on present rx. The etiology of this condition ids not clear. Culture negative, TB test negative. The presence of pulmonary infiltrate is ambiguous. The case discussed with consultants. Continue empiric rx. Consider transfer to an academic facility if the diagnosis is still cryptic. Objective - Vital Signs/Intake and Output Vital Signs (last 24 hours): Temp Pulse Resp BP Pulse Ox 99.1 F 70 18 106/65 99 11/30/18 10:38 11/30/18 12:14 11/30/18 10:38 11/30/18 10:40 11/30/18 10:38 - Medications Medications: Current Medications Aspirin (Aspirin Chewable) 81 mg PO DAILY [facility] Last Admin: 11/30/18 10:39 Dose: 81 mg Colchicine (Colocrys) 0.6 mg PO DAILY [facility] Last Admin: 11/30/18 10:39 Dose: 0.6 mg Digoxin (Lanoxin) 0.25 mg PO DAILY@1800 [facility] Last Admin: 11/29/18 18:49 Dose: 0.25 mg Doxycycline Hyclate (Doryx) 100 mg PO Q12H [facility]; Protocol Last Admin: 11/30/18 06:10 Dose: 100 mg Meropenem 500 mg/ Sodium (Chloride) 100 mls @ 100 mls/hr IVPB Q8H [facility]; Protocol Last Admin: 11/30/18 13:46 Dose: 100 mls/hr Metoprolol Tartrate (Lopressor) 25 mg PO BID [facility] Last Admin: 11/30/18 10:40 Dose: 25 mg Multivitamins (Hexavitamin) 1 tab PO DAILY [facility] Last Admin: 11/30/18 10:40 Dose: 1 tab Pneumococcal Polyvalent Vaccine (Pneumovax 23 Vaccine) 0.5 ml IM .ONCE ONE Stop: 12/01/18 10:01 Potassium Chloride (K-Dur 20 Meq Er Tab) 40 meq PO BRK [facility] Last Admin: 11/30/18 09:15 Dose: 40 meq - Labs Labs: 11/30/18 09:03 11/30/18 09:03 PT 20.9 SECONDS (9.7-12.2) H 11/28/18 09:56 INR 1.9 11/28/18 09:56 APTT 34 SECONDS (21-34) 11/28/18 09:56 - Constitutional Appears: Chronically Ill - Head Exam Head Exam: ATRAUMATIC, NORMAL INSPECTION, NORMOCEPHALIC - Eye Exam Eye Exam: Normal appearance Pupil Exam: NORMAL ACCOMODATION, PERRL - ENT Exam ENT Exam: Normal Exam - Neck Exam Neck Exam: Full ROM - Respiratory Exam Respiratory Exam: Decreased Breath Sounds - Cardiovascular Exam Cardiovascular Exam: Irregular Rhythm, +S1, +S2 - GI/Abdominal Exam GI & Abdominal Exam: Soft, Normal Bowel Sounds - Extremities Exam Extremities Exam: Normal Inspection - Neurological Exam Neurological Exam: Alert, Awake, Oriented x3 - Psychiatric Exam Psychiatric exam: Flat Affect - Skin Skin Exam: Normal Color Assessment and Plan (1) Pneumonia Status: Acute (2) Severe sepsis Status: Acute (3) Anemia Status: Acute (4) Atrial fibrillation Status: Chronic (5) Hypertensive cardiovascular disease Status: Chronic (6) Pacemaker Status: Chronic (7) Pleural effusion Status: Acute (8) Richa's syndrome Status: Acute (9) Pericardial effusion Status: Acute (10) Leukocytosis Status: Acute
[2018-11-30 17:16] VITALS: RESP 20
[2018-11-30] MEDS: Digoxin 250 mcg (0.25 mg) Tab PO SCH (17:49)
[2018-11-30] MEDS ORDERED: MethylPREDNISolone 40 mg Vial IVP STA (19:39)
[2018-11-30] MEDS ORDERED: DiphenhydrAMINE 50 mg/ml Inj IVP STA (19:41)
--- NOTE | 2018-11-30 19:53 | PCM.RRT ---
<Nitish Ratliff M - Last Filed: 11/30/18 19:58> PLANT MAINTENANCE MANAGER Nurses Assessment - Situation Date: 11/30/18 Time PLANT MAINTENANCE MANAGER was called: 19:33 PLANT MAINTENANCE MANAGER Responder Arrival Time:: 19:34 PLANT MAINTENANCE MANAGER Location:: Med/Surg Room Number: 661B PLANT MAINTENANCE MANAGER Reason for Call: Tachycardia PLANT MAINTENANCE MANAGER Called By: RN - Respiratory PLANT MAINTENANCE MANAGER Delivery Method: Venturi Mask @% Oxygen Flow Rate: 50 - Medication Medications Administered During PLANT MAINTENANCE MANAGER: Solumedrol 125 IVP. Pepcid 40. Benadryl 25 IVP - Diagnostic Test Ordered EKG: Yes - Vital Signs Vital Signs: T 98.6 HR 142 BP 154/93 RR 26 O2 98% on arrival - Shakeel Coma Scale Coma Scale Eye Opening: Spontaneous Coma Scale Motor: Obeys Commands Movement Coma Scale Verbal: Oriented Coma Scale Total: 15 - Time PLANT MAINTENANCE MANAGER Ended Time PLANT MAINTENANCE MANAGER Ended: 19:58 - Vital Signs at end of PLANT MAINTENANCE MANAGER Vital Signs at end of PLANT MAINTENANCE MANAGER: T 98.6 HR 100 BP 123/72 RR 20 O2 99% on Venti - Recommendations 5) PLANT MAINTENANCE MANAGER Level of Care Recommendations: Remain in current setting I.Reason for PLANT MAINTENANCE MANAGER - A) Acute Change in Patient: (Select all that apply): Staff member or family is worried about patient - Neurological Status (Select all that apply): Alert, Responsive, Oriented, Verbal, Follows Commands - Respiratory Oxygen Delivery Method: Venturi Mask @% Oxygen Flow Rate: 50 - Constitutional Appears: No Acute Distress, Chronically Ill - Head Head Exam: ATRAUMATIC, NORMOCEPHALIC - Eyes Eye Exam: EOMI, Normal appearance, PERRL - Respiratory Exam Respiratory Exam: Decreased Breath Sounds, Clear to Ausculation Bilateral, NORMAL BREATHING PATTERN Additional comments: NC switched to Venti mask - Cardiovascular Exam Cardiovascular Exam: Tachycardia, Irregular Rhythm, +S1, +S2 Additional comments: aflutter - GI/Abdominal Exam GI & Abdominal Exam: Distended, Soft, Normal Bowel Sounds. absent: Tenderness - Neurological Exam Neurological Exam: Alert, Awake, Oriented x3 - Extremities Exam Extremities Exam: Full ROM, Normal Capillary Refill, Normal Inspection Additional comments: mottled skin on bilateral LE Plan - Assessment of Findings&Treatment Plan PLANT MAINTENANCE MANAGER was called at 1733 for tachycardia nby RN Patient complains of chills despite afebrile status Patient was started on Cubicin today Recently recieved Tylenol Solumedrol 125 IVP, Pepcid 40, Benadryl 25 IVP given EKG unchanged from admission, remaind aflutter Patient became elevated in the low 200s Dr. Perez on scene She responded appropriately to medication and HR and BP normalized. Dr. Wheeler and Dr. Sultana contacted and informed <Andry Coats - Last Filed: 11/30/18 21:30> Attending/Attestation - Attestation I have personally seen and examined this patient.: Yes I have fully participated in the care of the patient.: Yes I have reviewed all pertinent clinical information, including history, physical exam and plan: Yes Notes (Text): 11/30/18 21:30 Patient was seen and examined and PLANT MAINTENANCE MANAGER performed with resident Dr. Ratliff. Andry Coats D.O.
--- NOTE | 2018-11-30 20:18 | CP.PCM.PN ---
Subjective - Date & Time of Evaluation Date of Evaluation: 11/30/18 Time of Evaluation: 20:07 - Subjective Subjective: INFECTIOUS DISEASE PROGRESS NOTES MARK ANTHONY DOLAN MD, FACP 6T 661-B 11/30/2018 CHART REVIEWED PT EXAMINED CASE DISCUSSED CLINICALLY PT HAD AN EPISODE OF TACYBRADYCARDIA SYNDROME THIS PM WITH A PULSE RATE OF 210 AND HYPOTENSION, TRANSIENT. I CAME IN AND PT APPEARS STABLIZING WITH O2, DOUBT A REACTION TO CUBICIN(?). PT RESPIKED THIS PM AND REC/S AND CUBICIN ADDED FOR AN INCREASE IN COVERAGE-WILL HOLD FOR NOW. PENDING FURTHER EVALUATION. CONSIDER WATCHING HER IN ICU/CCU, ALERT DR GUERRERO. PLAN; d/c cubicin-OBSERVE PT RECHECK C/S ALERT CARDIOLOGY TO TACYBRADYCARDIA SYNDROME The etiology of this condition is not clear. Culture negative, TB test negative- both by tissue pcr and urine c/s. The presence of pulmonary infiltrate is ambiguous. The case discussed with consultants. Continue empiric rx. Consider transfer to an academic facility if the diagnosis is still cryptic. Objective - Vital Signs/Intake and Output Vital Signs (last 24 hours): Temp Pulse Resp BP Pulse Ox 99.1 F 70 18 106/65 99 11/30/18 10:38 11/30/18 12:14 11/30/18 10:38 11/30/18 10:40 11/30/18 10:38 - Medications Medications: Current Medications Aspirin (Aspirin Chewable) 81 mg PO DAILY [facility] Last Admin: 11/30/18 10:39 Dose: 81 mg Colchicine (Colocrys) 0.6 mg PO DAILY [facility] Last Admin: 11/30/18 10:39 Dose: 0.6 mg Digoxin (Lanoxin) 0.25 mg PO DAILY@1800 [facility] Last Admin: 11/29/18 18:49 Dose: 0.25 mg Doxycycline Hyclate (Doryx) 100 mg PO Q12H [facility]; Protocol Last Admin: 11/30/18 06:10 Dose: 100 mg Meropenem 500 mg/ Sodium (Chloride) 100 mls @ 100 mls/hr IVPB Q8H [facility]; Protocol Last Admin: 11/30/18 13:46 Dose: 100 mls/hr Metoprolol Tartrate (Lopressor) 25 mg PO BID [facility] Last Admin: 11/30/18 10:40 Dose: 25 mg Multivitamins (Hexavitamin) 1 tab PO DAILY [facility] Last Admin: 11/30/18 10:40 Dose: 1 tab Pneumococcal Polyvalent Vaccine (Pneumovax 23 Vaccine) 0.5 ml IM .ONCE ONE Stop: 12/01/18 10:01 Potassium Chloride (K-Dur 20 Meq Er Tab) 40 meq PO BRK [facility] Last Admin: 11/30/18 09:15 Dose: 40 meq - Labs Labs: 11/30/18 09:03 11/30/18 09:03 PT 20.9 SECONDS (9.7-12.2) H 11/28/18 09:56 INR 1.9 11/28/18 09:56 APTT 34 SECONDS (21-34) 11/28/18 09:56 - Constitutional Appears: Chronically Ill - Head Exam Head Exam: ATRAUMATIC, NORMAL INSPECTION, NORMOCEPHALIC - Eye Exam Eye Exam: Normal appearance Pupil Exam: NORMAL ACCOMODATION, PERRL - ENT Exam ENT Exam: Normal Exam - Neck Exam Neck Exam: Full ROM - Respiratory Exam Respiratory Exam: Decreased Breath Sounds - Cardiovascular Exam Cardiovascular Exam: Irregular Rhythm, +S1, +S2 - GI/Abdominal Exam GI & Abdominal Exam: Soft, Normal Bowel Sounds - Extremities Exam Extremities Exam: Normal Inspection - Neurological Exam Neurological Exam: Alert, Awake, Oriented x3 - Psychiatric Exam Psychiatric exam: Flat Affect - Skin Skin Exam: Normal Color Assessment and Plan (1) Pneumonia-probable(?) Status: Acute (2) Severe sepsis vs fuo Status: Acute (3) Anemia Status: Acute (4) Atrial fibrillation Status: Chronic (5) Hypertensive cardiovascular disease Status: Chronic (6) Pacemaker Status: Chronic (7) Pleural effusion Status: Acute (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 Status: Acute Objective - Vital Signs/Intake and Output Vital Signs (last 24 hours): Temp Pulse Resp BP Pulse Ox 102.2 F H 81 20 120/78 96 11/30/18 16:00 11/30/18 16:00 11/30/18 16:00 11/30/18 19:20 11/30/18 16:00 Intake and Output: 11/30/18 12/01/18 18:59 06:59 Intake Total 500 Balance 500 - Medications Medications: Current Medications Aspirin (Aspirin Chewable) 81 mg PO DAILY [facility] Last Admin: 11/30/18 10:39 Dose: 81 mg Colchicine (Colocrys) 0.6 mg PO DAILY [facility] Last Admin: 11/30/18 10:39 Dose: 0.6 mg Digoxin (Lanoxin) 0.25 mg PO DAILY@1800 [facility] Last Admin: 11/30/18 17:49 Dose: 0.25 mg Doxycycline Hyclate (Doryx) 100 mg PO Q12H [facility]; Protocol Last Admin: 11/30/18 06:10 Dose: 100 mg Meropenem 500 mg/ Sodium (Chloride) 100 mls @ 100 mls/hr IVPB Q8H [facility]; Protocol Last Admin: 11/30/18 13:46 Dose: 100 mls/hr Daptomycin 400 mg/ Sodium (Chloride) 100 mls @ 100 mls/hr IV Q24H [facility]; Protocol Stop: 12/05/18 17:31 Last Admin: 11/30/18 17:40 Dose: 100 mls/hr Metoprolol Tartrate (Lopressor) 25 mg PO BID [facility] Last Admin: 11/30/18 19:20 Dose: 25 mg Multivitamins (Hexavitamin) 1 tab PO DAILY [facility] Last Admin: 11/30/18 10:40 Dose: 1 tab Pneumococcal Polyvalent Vaccine (Pneumovax 23 Vaccine) 0.5 ml IM .ONCE ONE Stop: 12/01/18 10:01 Potassium Chloride (K-Dur 20 Meq Er Tab) 40 meq PO BRK [facility] Last Admin: 11/30/18 09:15 Dose: 40 meq - Labs Labs: 11/30/18 09:03 11/30/18 09:03 PT 20.9 SECONDS (9.7-12.2) H 11/28/18 09:56 INR 1.9 11/28/18 09:56 APTT 34 SECONDS (21-34) 11/28/18 09:56
[2018-11-30] MEDS ORDERED: Naproxen 550 mg Tab PO ONE (20:30)
[2018-12-01] MEDS: Meropenem 500 MG in Sodium Chloride 0.9% 100 ML IVPB SCH ×2 (05:12→14:12)
[2018-12-01 07:17] LABS: BASO % 0.2 % (0.0-2.0); HEMOGLOBIN 13.2 g/dL (11.0-16.0); LYMPH # 0.8 K/uL (1.0-4.3); LYMPH % 7.6 % (20.0-40.0); MEAN CELL VOLUME 88.1 fL (81.0-99.0); MEAN PLATELET VOLUME 8.5 fL (7.2-11.7); MONO # 0.3 K/uL (0.0-0.8); MONO % 3.1 % (0.0-10.0); NEUT # 9.6 K/uL (1.8-7.0); NEUT % 89.1 % (50.0-75.0); NRBC % 0.1 % (0.0-2.0); PLATELET COUNT 234 K/uL (130-400); RBC 4.54 Mil/uL (3.80-5.20); RED CELL DISTRIBUTION WIDTH 24.3 % (11.5-14.5); WHITE BLOOD COUNT 10.8 K/uL (4.8-10.8)
[2018-12-01 07:47] LABS: ALBUMIN 2.9 g/dL (3.5-5.0); ALT/SGPT 29 U/L (9-52); AST/SGOT 66 U/L (14-36); BLOOD UREA NITROGEN 17 mg/dL (7-17); CALCIUM 8.4 mg/dl (8.6-10.4); GFR NON-AFRICAN AMERICAN > 60
[2018-12-01 08:29] LABS: BANDS 1 % (0-2); BASOPHIL 1 % (0-2); LYMPHOCYTE 6 % (20-40); MONOCYTE 2 % (0-10); NEUTROPHIL 90 % (50-75); PLATELET ESTIMATE NORMAL (NORMAL); TOTAL CELLS COUNTED 100
[2018-12-01 08:50] LABS: ERYTHROCYTE SEDIMENTATION RATE 31 mm/hr (0-20)
[2018-12-01] MEDS: Multiple Vitamins Tab PO SCH (09:40)
[2018-12-01] MEDS: Potassium Chloride 20 mEq ER Tab PO SCH (09:40)
[2018-12-01] MEDS ORDERED: Pneumococcal 23-Valent Vaccine IM ONE (10:00)
--- NOTE | 2018-12-01 12:46 | RAD ---
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 FINDINGS: Examination limited by habitus and hypoinflation. LUNGS: Small (left greater than right) pleural effusions. Mild pulmonary venous congestion. No definite pneumothorax. CARDIOVASCULAR: Dual lead left-sided pacemaker. Cardiomegaly. No significant atherosclerotic calcifications. OSSEOUS STRUCTURES: Degenerative changes. VISUALIZED UPPER ABDOMEN: Unremarkable. OTHER FINDINGS: None. IMPRESSION: Small (left greater than right) pleural effusions. Mild pulmonary venous congestion. Dual lead left-sided pacemaker. Cardiomegaly.
--- NOTE | 2018-12-01 13:37 | CP.PCM.DIS ---
Provider - Provider Date of Admission: 11/28/18 10:59 Attending physician: Kenny Wheeler MD Consults: 11/28/18 13:35 Cardiology Consult Routine Comment: Consulting Provider: Musa Sultana Consulting Physician: Musa Sultana Reason for Consult: A.Fib 11/28/18 13:36 Infectious Disease Consult Routine Comment: Consulting Provider: Afshan Perez Consulting Physician: Afshan Perez Reason for Consult: sepsis 11/28/18 13:37 Hematology Oncology Consult Routine Comment: Consulting Provider: Kevin Barroso Consulting Physician: Kevin Barroso Reason for Consult: possible occult ca, lymphoblastic or myelodysplastic condition 11/28/18 13:48 Pulmonology Consult Routine Comment: Consulting Provider: Marlene Alfaro Consulting Physician: Marlene Alfaro Reason for Consult: pneumonia 11/28/18 18:29 Cardiology Consult Routine Comment: Please notify dr. Ravi Consulting Provider: Be Ravi Consulting Physician: Be Ravi Reason for Consult: A Fib, s/p PPM, high grade fevers 11/28/18 19:29 Cardiology Consult Routine Comment: cardiac consult Consulting Provider: America Ward Consulting Physician: America Ward Reason for Consult: second opinion Time Spent in preparation of Discharge (in minutes): 30 Diagnosis - Discharge Diagnosis (1) Pneumonia Status: Suspected (2) Severe sepsis Status: Suspected (3) Anemia Status: Acute (4) Atrial fibrillation Status: Chronic (5) Hypertensive cardiovascular disease Status: Chronic (6) Pacemaker Status: Chronic (7) Pleural effusion Status: Acute (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 (9) Pericardial effusion Status: Acute (10) Leukocytosis Status: Resolved (11) Serositis Status: Acute Hospital Course - Lab Results Lab Results: Micro Results 11/28/18 10:09 Blood Blood Culture - Preliminary NO GROWTH AFTER 3 DAYS 11/28/18 10:09 Blood Blood Culture - Preliminary NO GROWTH AFTER 3 DAYS 11/29/18 12:50 Other: Please Indicate Mycobacterial Culture - Preliminary 11/29/18 13:10 Blood-Venous Blood Culture - Preliminary NO GROWTH AFTER 24 HOURS 11/29/18 12:40 Blood-Venous Blood Culture - Preliminary NO GROWTH AFTER 24 HOURS 11/29/18 13:10 Urine,Clean Catch Urine Culture - Final No Growth (<1,000 CFU/ML) 11/28/18 10:49 Urine,Clean Catch Urine Culture - Final 10-50,000 CFU/ML. MULTIPLE SPECIES. PROBABLE CONTAMINATION. Most Recent Lab Values WBC 10.8 K/uL (4.8-10.8) 12/01/18 06:49 RBC 4.54 Mil/uL (3.80-5.20) 12/01/18 06:49 Hgb 13.2 g/dL (11.0-16.0) 12/01/18 06:49 Hct 40.0 % (34.0-47.0) 12/01/18 06:49 MCV 88.1 fL (81.0-99.0) 12/01/18 06:49 MCH 29.0 pg (27.0-31.0) 12/01/18 06:49 MCHC 33.0 g/dL (33.0-37.0) 12/01/18 06:49 RDW 24.3 % (11.5-14.5) H 12/01/18 06:49 Plt Count 234 K/uL (130-400) 12/01/18 06:49 MPV 8.5 fL (7.2-11.7) 12/01/18 06:49 Neut % (Auto) 89.1 % (50.0-75.0) H 12/01/18 06:49 Lymph % (Auto) 7.6 % (20.0-40.0) L 12/01/18 06:49 [place] % (Auto) 3.1 % (0.0-10.0) 12/01/18 06:49 Eos % (Auto) 0.0 % (0.0-4.0) 12/01/18 06:49 Baso % (Auto) 0.2 % (0.0-2.0) 12/01/18 06:49 Neut # (Auto) 9.6 K/uL (1.8-7.0) H 12/01/18 06:49 Lymph # (Auto) 0.8 K/uL (1.0-4.3) L 12/01/18 06:49 [place] # (Auto) 0.3 K/uL (0.0-0.8) 12/01/18 06:49 Eos # (Auto) 0.0 K/uL (0.0-0.7) 12/01/18 06:49 Baso # (Auto) 0.0 K/uL (0.0-0.2) 12/01/18 06:49 Neutrophils % (Manual) 90 % (50-75) H 12/01/18 06:49 Band Neutrophils % 1 % (0-2) 12/01/18 06:49 Lymphocytes % (Manual) 6 % (20-40) L 12/01/18 06:49 Monocytes % (Manual) 2 % (0-10) 12/01/18 06:49 Eosinophils % (Manual) 1 % (0-4) 11/29/18 07:13 Basophils % (Manual) 1 % (0-2) 12/01/18 06:49 Platelet Estimate Normal (NORMAL) 12/01/18 06:49 Polychromasia Slight 11/28/18 09:56 Hypochromasia (manual) Slight 11/28/18 09:56 Anisocytosis (manual) Moderate 11/28/18 09:56 ESR 31 mm/hr (0-20) H 12/01/18 06:49 PT 20.9 SECONDS (9.7-12.2) H 11/28/18 09:56 INR 1.9 11/28/18 09:56 APTT 34 SECONDS (21-34) 11/28/18 09:56 pO2 33 mm/Hg (30-55) 11/28/18 10:00 VBG pH 7.44 (7.32-7.43) H 11/28/18 10:00 VBG pCO2 40 mmHg (40-60) 11/28/18 10:00 VBG HCO3 26.3 mmol/L 11/28/18 10:00 VBG Total CO2 28.4 mmol/L (22-28) H 11/28/18 10:00 VBG O2 Sat (Calc) 66.0 % (40-65) H 11/28/18 10:00 VBG Base Excess 2.8 mmol/L (0.0-2.0) H 11/28/18 10:00 VBG Potassium 3.7 mmol/L (3.6-5.2) 11/28/18 10:00 Sodium 131.0 mmol/l (132-148) L 11/28/18 10:00 Chloride 96.0 mmol/L (98-107) L 11/28/18 10:00 Glucose 158 mg/dl (65-105) H 11/28/18 10:00 Lactate 2.4 mmol/L (0.7-2.1) H 11/28/18 10:00 Sodium 134 mmol/L (132-148) 12/01/18 06:49 Potassium 4.4 mmol/L (3.6-5.2) 12/01/18 06:49 Chloride 102 mmol/L (98-107) 12/01/18 06:49 Carbon Dioxide 26 mmol/L (22-30) 12/01/18 06:49 Anion Gap 11 (10-20) 12/01/18 06:49 BUN 17 mg/dL (7-17) 12/01/18 06:49 Creatinine 0.5 mg/dL (0.7-1.2) L 12/01/18 06:49 Est GFR ( Amer) > 60 12/01/18 06:49 Est GFR (Non-Af Amer) > 60 12/01/18 06:49 Random Glucose 243 mg/dL (65-105) H 12/01/18 06:49 Calcium 8.4 mg/dl (8.6-10.4) L 12/01/18 06:49 Phosphorus 3.4 mg/dL (2.5-4.5) 12/01/18 06:49 Magnesium 1.6 mg/dL (1.6-2.3) 12/01/18 06:49 Total Bilirubin 0.6 mg/dL (0.2-1.3) 12/01/18 06:49 AST 66 U/L (14-36) H D 12/01/18 06:49 ALT 29 U/L (9-52) 12/01/18 06:49 Alkaline Phosphatase 121 U/L (38-126) 12/01/18 06:49 Lactate Dehydrogenase 495 U/L (313-618) 12/01/18 06:49 Troponin I < 0.0120 ng/mL (0.00-0.120) 11/28/18 09:56 C-Reactive Protein 72.20 mg/L (0.0-9.9) H 12/01/18 06:49 NT-Pro-B Natriuret Pep 1010 pg/mL (0-900) H 11/28/18 09:56 Total Protein 5.9 g/dL (6.3-8.3) L 12/01/18 06:49 Albumin 2.9 g/dL (3.5-5.0) L 12/01/18 06:49 Globulin 3.0 gm/dL (2.2-3.9) 12/01/18 06:49 Albumin/Globulin Ratio 1.0 (1.0-2.1) 12/01/18 06:49 Venous Blood Potassium 3.7 mmol/L (3.6-5.2) 11/28/18 10:00 Urine Color Straw (YELLOW) 11/29/18 13:10 Urine Clarity Clear (Clear) 11/29/18 13:10 Urine pH 6.0 (5.0-8.0) 11/29/18 13:10 Ur Specific [place] 1.001 (1.003-1.030) L 11/29/18 13:10 Urine Protein Negative mg/dL (NEGATIVE) 11/29/18 13:10 Urine Glucose (UA) Normal mg/dL (Normal) 11/29/18 13:10 Urine Ketones Negative mg/dL (NEGATIVE) 11/29/18 13:10 Urine Blood 1+ (NEGATIVE) H 11/29/18 13:10 Urine Nitrate Negative (NEGATIVE) 11/29/18 13:10 Urine Bilirubin Negative (NEGATIVE) 11/29/18 13:10 Urine Urobilinogen Normal mg/dL (0.2-1.0) 11/29/18 13:10 Ur Leukocyte Esterase Neg Vargas/uL (Negative) 11/29/18 13:10 Urine WBC (Auto) < 1 /hpf (0-5) 11/29/18 13:10 Urine RBC (Auto) 2 /hpf (0-3) 11/29/18 13:10 Hyaline Casts 3-5 /lpf (0-2) H 11/28/18 10:49 Digoxin 1.0 ng/mL (0.8-2.0) 11/28/18 10:49 Influenza Typ A,B (EIA) Negative for flu a/b (NEGATIVE) 11/28/18 09:38 - Hospital Course Hospital Course: 62y/o lady with hx of pacemaker (07/31/18) and a. fib. She presented in ER on 10/23/18 with generalized weakness, dizziness near syncope, severe migraine, tachyarrhythmia, tachycardia, a. fib with rapid ventricular response and anemia the Hb is about 6 gm less that her baseline (14 to 8) She was hemodynamically not stable, symptomatic was transfused. The guaiac was positive she underwent to EGD and colonoscopy the anticoagulation with was discontinued. 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 She underwent to pericardial window and several pleurocentesis. Patient eventually responded to colchicine and steroid. On 11/18 she was discharge home in stable conditions. On 12/10 she was evaluated in ER for low grade fever and leukocytosis a CT scan revealed a possible infiltrate with pleural and pericardial effusion. She was started on antibiotics and the leukocytosis resolved, she continue to have fever and episode of tachyarrhythmia. The etiology of this condition is not clear. I discussed with the family that she will be transferred to an academic institution for further Rx and Dx of her condition. Vasculitis, Gallium scan pending w/u is pending (was not performed no gallium available). In the past 24 hrs, while waiting for transfer, patient condition stable a febrile, wbc wnl, pleural effusion improving. Discharge Exam - Head Exam Head Exam: ATRAUMATIC, NORMOCEPHALIC - Eye Exam Eye Exam: Normal appearance - ENT Exam ENT Exam: Normal Exam - Respiratory Exam Respiratory Exam: Decreased Breath Sounds - Cardiovascular Exam Cardiovascular Exam: Irregular Rhythm, +S1, +S2 - GI/Abdominal Exam GI & Abdominal Exam: Normal Bowel Sounds - Extremities Exam Extremities exam: normal inspection - Neurological Exam Neurological exam: Alert, Oriented x3 - Psychiatric Exam Psychiatric exam: Anxious - Skin Skin Exam: Normal Color Discharge Plan - Follow Up Plan Condition: SERIOUS Disposition: OTHER INSTITUTION
[2018-12-01 15:09] LABS: HEPATITIS B SURFACE AG Negative (NEGATIVE)
[2018-12-01 15:14] LABS: HEPATITIS B CORE AB NEGATIVE (NEGATIVE)
[2018-12-01 16:30] LABS: HEPATITIS B SURFACE AG Negative (NEGATIVE)
[2018-12-01 16:36] LABS: HEPATITIS A IGM NEGATIVE (NEGATIVE); HEPATITIS B CORE AB NEGATIVE (NEGATIVE)
[2018-12-01 16:47] LABS: HEPATITIS C ANTIBODY NEGATIVE (NEGATIVE)
--- NOTE | 2018-12-01 16:59 | CARD ---
APPROVED REPORT Date of service: 11/30/2018 EKG Measurement Heart [id number] MI P-20 [id number] <Conclusion> Atrial fibrillation with rapid VR Left axis deviation Left bundle branch block Abnormal ECG
--- NOTE | 2018-12-01 17:15 | CP.PCM.PN ---
Subjective - Date & Time of Evaluation Date of Evaluation: 12/01/18 Time of Evaluation: 17:12 - Subjective Subjective: INFECTIOUS DISEASE PROGRESS NOTES MARK ANTHONY DOLAN MD, FACP 12/01/2018 CHART REVIEWED PT EXAMINED CASE DISCUSSED WITH SCOTT GUERRERO AND GERONIMO REVIEWED RECORDS AGAIN WITH PHYSICIANS CLINICALLY THIS PATIENT LOOKS VERY STABLE TODAY, POST STEROIDS AND PEPCID. THIS PATIENT IS FOR TRANSFER TO [facility], located within [facility] [employer] 2ND TO HER DX OF FUO W/U HERE HAS BEEN ESSENTIALLY NO DEFINITIVE. QUESTION OF MALIGNANCY VS VASCULITIS IS STILL TO BE DETERMINED. SUGGESTED 48 HR GALLIUM SCAN. PLEASE FEEL FREE TO CALL ME TO DISCUSS THIS CASE. Objective - Vital Signs/Intake and Output Vital Signs (last 24 hours): Temp Pulse Resp BP Pulse Ox 97.4 F L 71 20 92/56 L 99 12/01/18 09:36 12/01/18 09:36 12/01/18 09:36 12/01/18 09:40 12/01/18 09:36 Intake and Output: 12/01/18 12/01/18 06:59 18:59 Intake Total 560 Balance 560 - Medications Medications: Current Medications Aspirin (Aspirin Chewable) 81 mg PO DAILY [facility] Last Admin: 12/01/18 09:40 Dose: 81 mg Colchicine (Colocrys) 0.6 mg PO DAILY [facility] Last Admin: 12/01/18 09:40 Dose: 0.6 mg Digoxin (Lanoxin) 0.25 mg PO DAILY@1800 [facility] Last Admin: 11/30/18 17:49 Dose: 0.25 mg Doxycycline Hyclate (Doryx) 100 mg PO Q12H [facility]; Protocol Last Admin: 12/01/18 06:08 Dose: 100 mg Metoprolol Tartrate (Lopressor) 25 mg PO BID [facility] Last Admin: 12/01/18 09:40 Dose: Not Given Multivitamins (Hexavitamin) 1 tab PO DAILY [facility] Last Admin: 12/01/18 09:40 Dose: 1 tab Potassium Chloride (K-Dur 20 Meq Er Tab) 40 meq PO BRK [facility] Last Admin: 12/01/18 09:40 Dose: 40 meq - Labs Labs: 12/01/18 06:49 12/01/18 06:49 PT 20.9 SECONDS (9.7-12.2) H 11/28/18 09:56 INR 1.9 11/28/18 09:56 APTT 34 SECONDS (21-34) 11/28/18 09:56
[2018-12-01] MEDS: Digoxin 250 mcg (0.25 mg) Tab PO SCH (18:52)
--- NOTE | 2018-12-01 21:34 | CP.PCM.PN ---
Subjective - Date & Time of Evaluation Date of Evaluation: 12/01/18 Time of Evaluation: 21:34 - Subjective Subjective: I spoke to the primary doctor about the overall prognosis. X-ray yesterday showing left pleural effusion somewhat slightly increasing. Patient last night had an episode of very high fever chills and shaking and tachycardia. At the time patient received a steroid and Pepcid in the NSAIDs. Patient until now having significant improvement in the overall symptoms. She is feeling well. No fever in the last 12 hours. No chest pain no shortness of breath. She is eating well. Meanwhile I discussed patient information with the [facility], and the patient is being accepted by Dr. Coats for tertiary care treatment. I spoke to PMD and the papers already placed, awaiting for bed. Meanwhile we will continue the current treatment Objective - Vital Signs/Intake and Output Vital Signs (last 24 hours): Temp Pulse Resp BP Pulse Ox 97.7 F 70 20 108/56 L 97 12/01/18 15:00 12/01/18 15:00 12/01/18 15:00 12/01/18 15:00 12/01/18 15:00 - Medications Medications: Current Medications Aspirin (Aspirin Chewable) 81 mg PO DAILY [facility] Last Admin: 12/01/18 09:40 Dose: 81 mg Colchicine (Colocrys) 0.6 mg PO DAILY [facility] Last Admin: 12/01/18 09:40 Dose: 0.6 mg Digoxin (Lanoxin) 0.25 mg PO DAILY@1800 [facility] Last Admin: 12/01/18 18:52 Dose: 0.25 mg Doxycycline Hyclate (Doryx) 100 mg PO Q12H [facility]; Protocol Last Admin: 12/01/18 18:52 Dose: 100 mg Metoprolol Tartrate (Lopressor) 25 mg PO BID [facility] Last Admin: 12/01/18 18:51 Dose: Not Given Multivitamins (Hexavitamin) 1 tab PO DAILY [facility] Last Admin: 12/01/18 09:40 Dose: 1 tab Potassium Chloride (K-Dur 20 Meq Er Tab) 40 meq PO BRK [facility] Last Admin: 12/01/18 09:40 Dose: 40 meq - Labs Labs: 12/01/18 06:49 12/01/18 06:49 PT 20.9 SECONDS (9.7-12.2) H 11/28/18 09:56 INR 1.9 04/07/19 09:56 APTT 34 SECONDS (21-34) 11/28/18 09:56
--- NOTE | 2018-12-01 21:55 | CP.PCM.CON ---
History of Present Illness - History of Present Illness History of Present Illness: 62year-old female with a history of pacemaker and B12 deficiency history of anemia in the past osteoporosis and hypertension. Patient was recently hospitalized, at that time she developed a pleural effusion, pericardial effusion, status post window. Patient also had multiple thoracentesis, showing hemorrhagic pleural effusion. Postoperatively patient was improving markedly. Patient was given empirically corticosteroid, she was fine until 3 days ago patient finished taking the corticosteroid 4 days ago, following that episode patient started having frequent episodes of fever she was taking every 4 times a Tylenol per day. But she started having more fever at nighttime associate with the chills and sweating. Patient did not have any other associated symptoms. Patient did not have any symptoms of cough, chest pain, respiratory distress, abdominal pain, denies any nausea and vomiting. She did not have any diarrhea. No urinary symptoms. Mild occasional headache noted. No neck stiffness. Denies any rash. No recent travel. She was participating physical exercise and treatment, no sick exposure. The patient has developed persistent fevers, with sweats mainly at night, ID on board, testing and work up so far negative for infectious etiology. She had a high WBC count on admission(? secondary to steroids), much improved si nce. Other labs including LDH normal, no evidence of lymphadenopathy or splenomegaly. Past medical history: Atrial flutter, fibrillation, hypertension, osteoporosis Surgical history include a hysterectomy, lung biopsy, pacemaker placement. Patient denies any alcohol or smoking. Past Patient History - Past Medical History & Family History Past Medical History?: Yes - Past Social History Smoking Status: Never Smoked - CARDIAC Hx Atrial Fibrillation: Yes Hx Hypertension: Yes Hx Pacemaker: Yes - PULMONARY Hx Respiratory Disorders: No - NEUROLOGICAL Hx Neurological Disorder: No - HEENT Hx HEENT Problems: No - RENAL Hx Chronic Kidney Disease: No - ENDOCRINE/METABOLIC Hx Endocrine Disorders: No - HEMATOLOGICAL/ONCOLOGICAL Hx Anemia: Yes - INTEGUMENTARY Hx Dermatological Problems: No - MUSCULOSKELETAL/RHEUMATOLOGICAL Hx Musculoskeletal Disorders: No Hx Falls: No - GENITOURINARY/GYNECOLOGICAL Hx Genitourinary Disorders: No - PSYCHIATRIC Hx Substance Use: No - SURGICAL HISTORY Hx Surgeries: Yes Hx Hysterectomy: Yes Hx Mastectomy: No Other/Comment: Lobectomy, Left - ANESTHESIA Hx Anesthesia: Yes Hx Anesthesia Reactions: No Hx Malignant Hyperthermia: No Meds Home Medications: Home Medication List Medication Instructions Recorded Confirmed Type Doxycycline Hyclate [Doryx] 100 mg PO Q12H cap 12/01/18 Rx Famotidine [Pepcid] 40 mg IVP STAT vial 12/01/18 Rx Meropenem [Merrem IV] 500 mg IVPB Q8H vial 12/01/18 Rx Allergies/Adverse Reactions: Allergies Allergy/AdvReac Type Severity Reaction Status Date / Time No Known Allergies Allergy Verified 11/28/18 08:54 - Medications Medications: Current Medications Aspirin (Aspirin Chewable) 81 mg PO DAILY [facility] Last Admin: 12/01/18 09:40 Dose: 81 mg Colchicine (Colocrys) 0.6 mg PO DAILY [facility] Last Admin: 12/01/18 09:40 Dose: 0.6 mg Digoxin (Lanoxin) 0.25 mg PO DAILY@1800 [facility] Last Admin: 12/01/18 18:52 Dose: 0.25 mg Doxycycline Hyclate (Doryx) 100 mg PO Q12H [facility]; Protocol Last Admin: 12/01/18 18:52 Dose: 100 mg Metoprolol Tartrate (Lopressor) 25 mg PO BID [facility] Last Admin: 12/01/18 18:51 Dose: Not Given Multivitamins (Hexavitamin) 1 tab PO DAILY [facility] Last Admin: 12/01/18 09:40 Dose: 1 tab Potassium Chloride (K-Dur 20 Meq Er Tab) 40 meq PO BRK [facility] Last Admin: 12/01/18 09:40 Dose: 40 meq Results - Vital Signs Recent Vital Signs: Last Vital Signs Temp 97.7 F 12/01/18 15:00 Pulse 70 12/01/18 15:00 Resp 20 12/01/18 15:00 BP 108/56 L 12/01/18 15:00 Pulse Ox 97 12/01/18 15:00 - Labs Result Diagrams: 12/01/18 06:49 12/01/18 06:49 Labs: Laboratory Results - last 24 hr 12/01/18 12/01/18 12/01/18 06:49 06:49 14:17 WBC 10.8 RBC 4.54 Hgb 13.2 Hct 40.0 MCV 88.1 MCH 29.0 MCHC 33.0 RDW 24.3 H Plt Count 234 MPV 8.5 Neut % (Auto) 89.1 H Lymph % (Auto) 7.6 L [place] % (Auto) 3.1 Eos % (Auto) 0.0 Baso % (Auto) 0.2 Neut # (Auto) 9.6 H Lymph # (Auto) 0.8 L [place] # (Auto) 0.3 Eos # (Auto) 0.0 Baso # (Auto) 0.0 Neutrophils % (Manual) 90 H Band Neutrophils % 1 Lymphocytes % (Manual) 6 L Monocytes % (Manual) 2 Basophils % (Manual) 1 Platelet Estimate Normal ESR 31 H Sodium 134 Potassium 4.4 Chloride 102 Carbon Dioxide 26 Anion Gap 11 BUN 17 Creatinine 0.5 L Est GFR ( Amer) > 60 Est GFR (Non-Af Amer) > 60 Random Glucose 243 H Calcium 8.4 L Phosphorus 3.4 Magnesium 1.6 Total Bilirubin 0.6 AST 66 H D ALT 29 Alkaline Phosphatase 121 Lactate Dehydrogenase 495 C-Reactive Protein 72.20 H C-React Prot High Sens Total Protein 5.9 L Albumin 2.9 L Globulin 3.0 Albumin/Globulin Ratio 1.0 Hepatitis A IgM Ab Negative Hep Bs Antigen Negative Hep Bs Antibody Hep B Core IgM Ab Negative Hepatitis C Antibody Negative 12/01/18 12/01/18 12/01/18 14:17 14:17 14:17 WBC RBC Hgb Hct MCV MCH MCHC RDW Plt Count MPV Neut % (Auto) Lymph % (Auto) [place] % (Auto) Eos % (Auto) Baso % (Auto) Neut # (Auto) Lymph # (Auto) [place] # (Auto) Eos # (Auto) Baso # (Auto) Neutrophils % (Manual) Band Neutrophils % Lymphocytes % (Manual) Monocytes % (Manual) Basophils % (Manual) Platelet Estimate ESR Sodium Potassium Chloride Carbon Dioxide Anion Gap BUN Creatinine Est GFR ( Amer) Est GFR (Non-Af Amer) Random Glucose Calcium Phosphorus Magnesium Total Bilirubin AST ALT Alkaline Phosphatase Lactate Dehydrogenase C-Reactive Protein C-React Prot High Sens > 15.00 H Total Protein Albumin Globulin Albumin/Globulin Ratio Hepatitis A IgM Ab Hep Bs Antigen Negative Hep Bs Antibody Negative Hep B Core IgM Ab Negative Hepatitis C Antibody Assessment & Plan (1) Leukocytosis Assessment and Plan: 62 yo woman with fever of unknown origin, much improved on steroids, WBC decreased since admission. At this time, do not see any evidence of lympho/myeloproliferative disease. If there is recurrent elevation of her WBC count, will need flow cytometry and work up . Above discussed with the patient. Status: Acute
--- NOTE | 2018-12-01 22:27 | CP.PCM.PN ---
Subjective - Date & Time of Evaluation Date of Evaluation: 12/01/18 Time of Evaluation: 15:30 - Subjective Subjective: Patient had an episode of fever, at the present time comfortable. The procedure to be transferred to [facility] was stated. Case discussed with patient, family and business sales consultant. Objective - Vital Signs/Intake and Output Vital Signs (last 24 hours): Temp Pulse Resp BP Pulse Ox 97.7 F 70 20 108/56 L 97 12/01/18 15:00 12/01/18 15:00 12/01/18 15:00 12/01/18 15:00 12/01/18 15:00 - Medications Medications: Current Medications Aspirin (Aspirin Chewable) 81 mg PO DAILY [facility] Last Admin: 12/01/18 09:40 Dose: 81 mg Colchicine (Colocrys) 0.6 mg PO DAILY [facility] Last Admin: 12/01/18 09:40 Dose: 0.6 mg Digoxin (Lanoxin) 0.25 mg PO DAILY@1800 [facility] Last Admin: 12/01/18 18:52 Dose: 0.25 mg Doxycycline Hyclate (Doryx) 100 mg PO Q12H [facility]; Protocol Last Admin: 12/01/18 18:52 Dose: 100 mg Metoprolol Tartrate (Lopressor) 25 mg PO BID [facility] Last Admin: 12/01/18 18:51 Dose: Not Given Multivitamins (Hexavitamin) 1 tab PO DAILY [facility] Last Admin: 12/01/18 09:40 Dose: 1 tab Potassium Chloride (K-Dur 20 Meq Er Tab) 40 meq PO BRK [facility] Last Admin: 12/01/18 09:40 Dose: 40 meq - Labs Labs: 12/01/18 06:49 12/01/18 06:49 PT 20.9 SECONDS (9.7-12.2) H 11/28/18 09:56 INR 1.9 11/28/18 09:56 APTT 34 SECONDS (21-34) 11/28/18 09:56 - Constitutional Appears: Non-toxic - Head Exam Head Exam: ATRAUMATIC, NORMAL INSPECTION, NORMOCEPHALIC - Eye Exam Eye Exam: Normal appearance - ENT Exam ENT Exam: Normal Exam - Neck Exam Neck Exam: Full ROM - Respiratory Exam Respiratory Exam: Decreased Breath Sounds - Cardiovascular Exam Cardiovascular Exam: Irregular Rhythm, +S1, +S2 - GI/Abdominal Exam GI & Abdominal Exam: Normal Bowel Sounds - Extremities Exam Extremities Exam: Normal Inspection - Neurological Exam Neurological Exam: Alert, Awake, CN II-XII Intact, Oriented x3 - Psychiatric Exam Psychiatric exam: Anxious, Depressed - Skin Skin Exam: Normal Color Assessment and Plan (1) Pneumonia Status: Acute (2) Severe sepsis Status: Acute (3) Anemia Status: Acute (4) Atrial fibrillation Status: Chronic (5) Hypertensive cardiovascular disease Status: Chronic (6) Pacemaker Status: Chronic (7) Pleural effusion Status: Acute (8) Richa's syndrome Status: Acute (9) Pericardial effusion Status: Acute (10) Leukocytosis Status: Acute
[2018-12-02] MEDS: Multiple Vitamins Tab PO SCH (09:49)
[2018-12-02] MEDS: Potassium Chloride 20 mEq ER Tab PO SCH (09:50)
[2018-12-02 12:01] LABS: BASO % 0.2 % (0.0-2.0); HEMOGLOBIN 11.6 g/dL (11.0-16.0); LYMPH # 1.7 K/uL (1.0-4.3); LYMPH % 12.7 % (20.0-40.0); MEAN CELL VOLUME 88.5 fL (81.0-99.0); MEAN CORPUSCULAR HEMOGLOBIN 28.8 pg (27.0-31.0); MEAN CORPUSCULAR HGB CONC 32.5 g/dL (33.0-37.0); MEAN PLATELET VOLUME 8.6 fL (7.2-11.7); MONO # 0.9 K/uL (0.0-0.8); MONO % 6.3 % (0.0-10.0); NEUT # 11.2 K/uL (1.8-7.0); NEUT % 80.8 % (50.0-75.0); NRBC % 0.1 % (0.0-2.0); RBC 4.03 Mil/uL (3.80-5.20); RED CELL DISTRIBUTION WIDTH 23.9 % (11.5-14.5); WHITE BLOOD COUNT 13.8 K/uL (4.8-10.8)
[2018-12-02 12:11] LABS: BLOOD UREA NITROGEN 15 mg/dL (7-17); CALCIUM 8.8 mg/dl (8.6-10.4); GFR NON-AFRICAN AMERICAN > 60
[2018-12-02] MEDS: Digoxin 250 mcg (0.25 mg) Tab PO SCH (17:30)
--- NOTE | 2018-12-02 19:42 | CP.PCM.PN ---
Subjective - Date & Time of Evaluation Date of Evaluation: 12/02/18 Time of Evaluation: 15:35 - Subjective Subjective: Patient anxious, general condition improving on present rx. New leukocytosis today. Will follow in am if increase wbc will restart empiric antibiotic rx. The gallium scan was not performed because no gallium available. She is waiting to be transferred to an academic institution for further diagnostics and therapy. The transfer was coordinated on 12/01 but not bed available. Will continue present empiric therapy. Objective - Vital Signs/Intake and Output Vital Signs (last 24 hours): Temp Pulse Resp BP Pulse Ox 97.9 F 69 20 125/70 99 12/02/18 15:05 12/02/18 15:05 12/02/18 15:05 12/02/18 17:30 12/02/18 15:05 Intake and Output: 12/02/18 12/02/18 11:59 23:59 Intake Total 240 Balance 240 - Medications Medications: Current Medications Aspirin (Aspirin Chewable) 81 mg PO DAILY [facility] Last Admin: 12/02/18 09:49 Dose: 81 mg Colchicine (Colocrys) 0.6 mg PO DAILY [facility] Last Admin: 12/02/18 12:27 Dose: 0.6 mg Digoxin (Lanoxin) 0.25 mg PO DAILY@1800 [facility] Last Admin: 12/02/18 17:30 Dose: 0.25 mg Doxycycline Hyclate (Doryx) 100 mg PO Q12H [facility]; Protocol Last Admin: 12/02/18 07:06 Dose: 100 mg Metoprolol Tartrate (Lopressor) 25 mg PO BID [facility] Last Admin: 12/02/18 17:30 Dose: 25 mg Multivitamins (Hexavitamin) 1 tab PO DAILY [facility] Last Admin: 12/02/18 09:49 Dose: 1 tab Potassium Chloride (K-Dur 20 Meq Er Tab) 40 meq PO BRK [facility] Last Admin: 12/02/18 09:50 Dose: 40 meq - Labs Labs: 12/02/18 11:45 12/02/18 11:45 PT 20.9 SECONDS (9.7-12.2) H 11/28/18 09:56 INR 1.9 11/28/18 09:56 APTT 34 SECONDS (21-34) 11/28/18 09:56 - Constitutional Appears: Chronically Ill - Head Exam Head Exam: ATRAUMATIC, NORMAL INSPECTION, NORMOCEPHALIC - Eye Exam Eye Exam: Normal appearance - ENT Exam ENT Exam: Normal Exam - Neck Exam Neck Exam: Full ROM - Respiratory Exam Respiratory Exam: Decreased Breath Sounds - Cardiovascular Exam Cardiovascular Exam: Irregular Rhythm, +S1, +S2 - GI/Abdominal Exam GI & Abdominal Exam: Normal Bowel Sounds - Extremities Exam Extremities Exam: Normal Inspection - Neurological Exam Neurological Exam: Alert, Altered, Awake, Oriented x3 - Psychiatric Exam Psychiatric exam: Depressed - Skin Skin Exam: Pallor Assessment and Plan (1) Pneumonia Status: Suspected (2) Severe sepsis Status: Suspected (3) Anemia Status: Acute (4) Atrial fibrillation Status: Chronic (5) Hypertensive cardiovascular disease Status: Chronic (6) Pacemaker Status: Chronic (7) Pleural effusion Status: Acute (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 (9) Pericardial effusion Status: Acute (10) Leukocytosis Status: Acute (11) Serositis Status: Acute
--- NOTE | 2018-12-02 20:56 | CP.PCM.PN ---
Subjective - Date & Time of Evaluation Date of Evaluation: 12/02/18 Time of Evaluation: 20:50 - Subjective Subjective: INFECTIOUS DISEASE PRORESS NOTES MARK ANTHONY DOLAN MD, FACP 12/02/2018 CHART REVIEWED PT EXAMINED CASE DISCUSSED CLINICALLY PT APPEARS STABLE A QUESTION BY THE PT OF PROBABLY AN ELEVATED TEMP AROUND 3AM BUT NO ONE TOOK HER TEMP OR NOTIFIED ME OR HER PMD, DR GUERRERO. ALSO ON CLOSE REVIEW OF HER MEDS, HER [facility] APPARENTLY "FELL OFF" HER LIST AND WAS JUST NOT MADE AWARE TO ANY OF THE CLINICAL PHYSICIANS. SHE WAS MADE AWARE TO EMPHYSIS TO THE STAFF TO CALL DR GUERRERO AND DR DOLAN FOR ANY SWEATS AND TEMP ELEVATIONS AT ANYTIME. AWAITING TRANSFER TO [facility], SEEN BY DR DAVION BLANCO PT DX: FUO PRESENTLY ONLY ON VIBRAMYCIN 100MG PO BID. Objective - Vital Signs/Intake and Output Vital Signs (last 24 hours): Temp Pulse Resp BP Pulse Ox 97.9 F 69 20 125/70 99 12/02/18 15:05 12/02/18 15:05 12/02/18 15:05 12/02/18 17:30 12/02/18 15:05 - Medications Medications: Current Medications Aspirin (Aspirin Chewable) 81 mg PO DAILY [facility] Last Admin: 12/02/18 09:49 Dose: 81 mg Colchicine (Colocrys) 0.6 mg PO DAILY [facility] Last Admin: 12/02/18 12:27 Dose: 0.6 mg Digoxin (Lanoxin) 0.25 mg PO DAILY@1800 [facility] Last Admin: 12/02/18 17:30 Dose: 0.25 mg Doxycycline Hyclate (Doryx) 100 mg PO Q12H [facility]; Protocol Last Admin: 12/02/18 07:06 Dose: 100 mg Metoprolol Tartrate (Lopressor) 25 mg PO BID [facility] Last Admin: 12/02/18 17:30 Dose: 25 mg Multivitamins (Hexavitamin) 1 tab PO DAILY [facility] Last Admin: 12/02/18 09:49 Dose: 1 tab Potassium Chloride (K-Dur 20 Meq Er Tab) 40 meq PO BRK [facility] Last Admin: 12/02/18 09:50 Dose: 40 meq - Labs Labs: 12/02/18 11:45 12/02/18 11:45 PT 20.9 SECONDS (9.7-12.2) H 11/28/18 09:56 INR 1.9 11/28/18 09:56 APTT 34 SECONDS (21-34) 11/28/18 09:56
[2018-12-03 08:23] LABS: BASO % 0.3 % (0.0-2.0); EOS # 0.2 K/uL (0.0-0.7); EOS % 2.1 % (0.0-4.0); HEMOGLOBIN 12.6 g/dL (11.0-16.0); LYMPH # 2.3 K/uL (1.0-4.3); LYMPH % 30.8 % (20.0-40.0); MEAN CELL VOLUME 87.7 fL (81.0-99.0); MEAN CORPUSCULAR HEMOGLOBIN 29.3 pg (27.0-31.0); MEAN CORPUSCULAR HGB CONC 33.4 g/dL (33.0-37.0); MEAN PLATELET VOLUME 8.2 fL (7.2-11.7); MONO # 0.7 K/uL (0.0-0.8); MONO % 9.2 % (0.0-10.0); NEUT # 4.2 K/uL (1.8-7.0); NEUT % 57.6 % (50.0-75.0); NRBC % 0.1 % (0.0-2.0); RBC 4.3 Mil/uL (3.80-5.20); RED CELL DISTRIBUTION WIDTH 23.9 % (11.5-14.5); WHITE BLOOD COUNT 7.3 K/uL (4.8-10.8)
[2018-12-03 08:32] LABS: BLOOD UREA NITROGEN 14 mg/dL (7-17); CALCIUM 8.7 mg/dl (8.6-10.4); GFR NON-AFRICAN AMERICAN > 60
[2018-12-03] MEDS: Potassium Chloride 20 mEq ER Tab PO SCH (09:06)
[2018-12-03] MEDS: Multiple Vitamins Tab PO SCH (09:06)
--- NOTE | 2018-12-03 10:06 | RAD ---
Date of service: 12/03/2018 HISTORY: Follow-up COMPARISON: 11/30/2018. TECHNIQUE: Chest PA and lateral FINDINGS: LINES AND TUBES: None. LUNG AND PLEURA: The lungs are well inflated. Improving left pleural effusion with residual small effusion and subsegmental atelectasis in left lower lobe HEART AND MEDIASTINUM: Mild cardiomegaly. There is stable position of left-sided permanent pacing device. No aortic atherosclerotic calcifications present. The hilar and mediastinal contours are within normal limits. SKELETAL STRUCTURES: The bony structures are within normal limits for the patient's age. VISUALIZED UPPER ABDOMEN: Normal. OTHER FINDINGS: None. IMPRESSION: Improving left pleural effusion with residual small effusion and subsegmental atelectasis in the left lower lobe.
--- NOTE | 2018-12-03 14:09 | CP.PCM.PN ---
Subjective - Date & Time of Evaluation Date of Evaluation: 12/03/18 Time of Evaluation: 14:08 - Subjective Subjective: Improving well less pleural effusion, wbc nl. Patient less anxious. Still waiting. for the transfer. Anti coagulation as per cardiology consult. Patient refuses Lovenox. Objective - Vital Signs/Intake and Output Vital Signs (last 24 hours): Temp Pulse Resp BP Pulse Ox 98.0 F 82 20 112/69 97 12/03/18 08:40 12/03/18 12:23 12/03/18 08:40 12/03/18 09:06 12/03/18 08:40 Intake and Output: 12/03/18 12/03/18 11:59 23:59 Intake Total 100 Balance 100 - Medications Medications: Current Medications Aspirin (Aspirin Chewable) 81 mg PO DAILY [facility] Last Admin: 12/03/18 09:06 Dose: 81 mg Colchicine (Colocrys) 0.6 mg PO DAILY [facility] Last Admin: 12/03/18 09:09 Dose: 0.6 mg Digoxin (Lanoxin) 0.25 mg PO DAILY@1800 [facility] Last Admin: 12/02/18 17:30 Dose: 0.25 mg Doxycycline Hyclate (Doryx) 100 mg PO Q12H [facility]; Protocol Last Admin: 12/03/18 06:55 Dose: 100 mg Metoprolol Tartrate (Lopressor) 25 mg PO BID [facility] Last Admin: 12/03/18 09:06 Dose: 25 mg Multivitamins (Hexavitamin) 1 tab PO DAILY [facility] Last Admin: 12/03/18 09:06 Dose: 1 tab Potassium Chloride (K-Dur 20 Meq Er Tab) 40 meq PO BRK [facility] Last Admin: 12/03/18 09:06 Dose: 40 meq - Labs Labs: 12/03/18 04:00 12/03/18 08:17 PT 20.9 SECONDS (9.7-12.2) H 11/28/18 09:56 INR 1.9 11/28/18 09:56 APTT 34 SECONDS (21-34) 11/28/18 09:56 - Constitutional Appears: Chronically Ill - Head Exam Head Exam: ATRAUMATIC, NORMAL INSPECTION - ENT Exam ENT Exam: Normal Exam - Neck Exam Neck Exam: Full ROM - Respiratory Exam Respiratory Exam: Decreased Breath Sounds - Cardiovascular Exam Cardiovascular Exam: Irregular Rhythm, +S1, +S2 - GI/Abdominal Exam GI & Abdominal Exam: Soft, Normal Bowel Sounds - Extremities Exam Extremities Exam: Normal Inspection - Neurological Exam Neurological Exam: Alert, Awake, CN II-XII Intact, Oriented x3 - Psychiatric Exam Psychiatric exam: Normal Affect - Skin Skin Exam: Normal Color Assessment and Plan (1) Pneumonia Status: Suspected (2) Severe sepsis Status: Suspected (3) Anemia Status: Acute (4) Atrial fibrillation Status: Chronic (5) Hypertensive cardiovascular disease Status: Chronic (6) Pacemaker Status: Chronic (7) Pleural effusion Status: Acute (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 (9) Pericardial effusion Status: Acute (10) Leukocytosis Status: Acute (11) Serositis Status: Acute
--- NOTE | 2018-12-03 17:51 | CP.PCM.PN ---
Subjective - Date & Time of Evaluation Date of Evaluation: 12/03/18 Time of Evaluation: 17:47 - Subjective Subjective: INFECTIOUS DISEASE PROGRESS NOTES MARK ANTHONY DOLAN MD, FACP 12/03/2018 CHART REVIEWED PT EXAMINED CASE DISCUSSED [facility] Improving well less pleural effusion, wbc nl. Patient less anxious. Still waiting. for the transfer. CLINICALLY REVIEWED HER CHART VIA THE COMPUTER SYSTEM-NO DEFINITIVE + FINDINGS APPRECIATED POSSIBLY FOR TRANSER VS GOING HOME AND IF HER CONDITION REOCCURS TO GO DIRECTLY TO [facility] AND SEE DR Fay REAL WHO APPARENTLY WOULD ACCEPT THE CASE. THANK YOU FEEL FREE TO CALL ME. Objective - Vital Signs/Intake and Output Vital Signs (last 24 hours): Temp Pulse Resp BP Pulse Ox 98.0 F 82 20 112/69 97 12/03/18 08:40 12/03/18 12:23 12/03/18 08:40 12/03/18 09:06 12/03/18 08:40 Intake and Output: 12/03/18 12/03/18 11:59 23:59 Intake Total 100 Balance 100 - Medications Medications: Current Medications Aspirin (Aspirin Chewable) 81 mg PO DAILY [facility] Last Admin: 12/03/18 09:06 Dose: 81 mg Colchicine (Colocrys) 0.6 mg PO DAILY [facility] Last Admin: 12/03/18 09:09 Dose: 0.6 mg Digoxin (Lanoxin) 0.25 mg PO DAILY@1800 [facility] Last Admin: 12/02/18 17:30 Dose: 0.25 mg Doxycycline Hyclate (Doryx) 100 mg PO Q12H [facility]; Protocol Last Admin: 12/03/18 06:55 Dose: 100 mg Metoprolol Tartrate (Lopressor) 25 mg PO BID [facility] Last Admin: 12/03/18 09:06 Dose: 25 mg Multivitamins (Hexavitamin) 1 tab PO DAILY [facility] Last Admin: 12/03/18 09:06 Dose: 1 tab Potassium Chloride (K-Dur 20 Meq Er Tab) 40 meq PO BRK [facility] Last Admin: 12/03/18 09:06 Dose: 40 meq - Labs Labs: 12/03/18 04:00 12/03/18 08:17 PT 20.9 SECONDS (9.7-12.2) H 11/28/18 09:56 INR 1.9 11/28/18 09:56 APTT 34 SECONDS (21-34) 11/28/18 09:56 - Constitutional Appears: Chronically Ill - Head Exam Head Exam: ATRAUMATIC, NORMAL INSPECTION - ENT Exam ENT Exam: Normal Exam - Neck Exam Neck Exam: Full ROM - Respiratory Exam Respiratory Exam: Decreased Breath Sounds - Cardiovascular Exam Cardiovascular Exam: Irregular Rhythm, +S1, +S2 - GI/Abdominal Exam GI & Abdominal Exam: Soft, Normal Bowel Sounds - Extremities Exam Extremities Exam: Normal Inspection - Neurological Exam Neurological Exam: Alert, Awake, CN II-XII Intact, Oriented x3 - Psychiatric Exam Psychiatric exam: Normal Affect - Skin Skin Exam: Normal Color Assessment and Plan (1) Pneumonia/FUO Status: Suspected (2) Severe sepsis Status: Suspected (3) Anemia Status: Acute (4) Atrial fibrillation Status: Chronic (5) Hypertensive cardiovascular disease Status: Chronic (6) Pacemaker Status: Chronic (7) Pleural effusion Status: Acute (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 (9) Pericardial effusion Status: Acute (10) Leukocytosis Status: Acute (11) Serositis Status: Acute Objective - Vital Signs/Intake and Output Vital Signs (last 24 hours): Temp Pulse Resp BP Pulse Ox 98.0 F 82 20 112/69 97 12/03/18 08:40 12/03/18 12:23 12/03/18 08:40 12/03/18 09:06 12/03/18 08:40 Intake and Output: 12/03/18 12/03/18 06:59 18:59 Intake Total 100 Balance 100 - Medications Medications: Current Medications Aspirin (Aspirin Chewable) 81 mg PO DAILY [facility] Last Admin: 12/03/18 09:06 Dose: 81 mg Colchicine (Colocrys) 0.6 mg PO DAILY [facility] Last Admin: 12/03/18 09:09 Dose: 0.6 mg Digoxin (Lanoxin) 0.25 mg PO DAILY@1800 [facility] Last Admin: 12/02/18 17:30 Dose: 0.25 mg Doxycycline Hyclate (Doryx) 100 mg PO Q12H [facility]; Protocol Last Admin: 12/03/18 06:55 Dose: 100 mg Metoprolol Tartrate (Lopressor) 25 mg PO BID [facility] Last Admin: 12/03/18 09:06 Dose: 25 mg Multivitamins (Hexavitamin) 1 tab PO DAILY [facility] Last Admin: 12/03/18 09:06 Dose: 1 tab Potassium Chloride (K-Dur 20 Meq Er Tab) 40 meq PO BRK [facility] Last Admin: 12/03/18 09:06 Dose: 40 meq - Labs Labs: 12/03/18 04:00 12/03/18 08:17 PT 20.9 SECONDS (9.7-12.2) H 11/28/18 09:56 INR 1.9 11/28/18 09:56 APTT 34 SECONDS (21-34) 11/28/18 09:56
[2018-12-03] MEDS: Digoxin 250 mcg (0.25 mg) Tab PO SCH (19:00)
[2018-12-03 19:03] VITALS: PULSE 70
[2018-12-03 19:36] VITALS: TEMP 98.3
[2018-12-04 01:17] LABS: ANCA SCREEN NEGATIVE (NEGATIVE)
[2018-12-04 05:33] VITALS: BP 108/62; PULSE 87; O2SAT 95
--- NOTE | 2018-12-06 20:23 | PQF ---
PROVIDER RESPONSE TEXT: Fever of unknown etiology REVIEWER QUERY TEXT: Fever of Unknown Origin Cause Fever is noted in the Medical Record. Please clarify the cause of fever (Includes suspected or probab le) Such as: -- Bacterial -- Drug-induced -- Fungal -- Infectious disease -- Malignancy -- Viral -- Other, please specify The patient's Clinical Indicators include: FEVER 102.5 ,LEUKOCYTOSIS S/P ( PREVIOUS ADMISSION) PACEMAKER INSERTION WITH POST-OP PLEASE, CLARIFY (IF KNOWN) THE ETIOLOGY OF FEVER Thank You! Marla Scott, credit control officer Query created by: Marla Scott on 12/06/2018 3:26 PM Electronically signed by: Kenny Wheeler MD 12/06/2018 8:20 PM
== END 2018-12-04 05:35 | disposition short-term general hospital (02) | DRG 871 ==
LOC: C.ER 08:34 → C.9E 10:59 → C.6T 11:16
PROVIDERS: ADMIT Internal Medicine; ATTEND Internal Medicine
DX: A41.9 Sepsis, unspecified organism (principal); J18.9 Pneumonia, unspecified organism; R65.20 Severe sepsis without septic shock; I77.6 Arteritis, unspecified; I31.3 Pericardial effusion (noninflammatory); J90 Pleural effusion, not elsewhere classified; K65.8 Other peritonitis; I24.1 Dressler's syndrome; R50.9 Fever, unspecified; I11.9 Hypertensive heart disease without heart failure; I51.7 Cardiomegaly; I48.91 Unspecified atrial fibrillation; R00.0 Tachycardia, unspecified; D64.9 Anemia, unspecified; M81.0 Age-related osteoporosis without current pathological fracture; I44.7 Left bundle-branch block, unspecified; E53.8 Deficiency of other specified B group vitamins; T38.0X5A Adverse effect of glucocorticoids and synthetic analogues, initial encounter; Z95.0 Presence of cardiac pacemaker; Z87.01 Personal history of pneumonia (recurrent); Z79.82 Long term (current) use of aspirin; Z90.710 Acquired absence of both cervix and uterus; Z80.8 Family history of malignant neoplasm of other organs or systems; Z82.3 Family history of stroke; Z82.49 Family history of ischemic heart disease and other diseases of the circulatory system

== ENCOUNTER 2019-01-12 14:32 | Outpatient (CLI) | payer MEDICARE | END 2019-01-12 14:33 | disposition home or self-care (01) | LOC: C.RADIC 14:32 | DX: J90 Pleural effusion, not elsewhere classified (principal) ==